=== PATIENT | male | born 1965 | race Caucasian/White ===

== ENCOUNTER 2019-06-05 09:04 | Outpatient (CLI) | payer OTHER, SELFPAY ==
--- NOTE | ~2019-06-05 | CT_ITS ---
EXAMINATION: CT chest wo con EXAM DATE: 06/05/2019 10:48 INDICATION: Solitary pulmonary nodule. TECHNIQUE: Spiral CT of the chest without contrast. Axial, coronal and sagittal images were reviewe d. Coronal maximum intensity pixel images of chest reviewed. The dose-length product (DLP) for this examination was 527.96 mGy-cm. The exposure was tailored according to patient size (auto mA exposur e control), and iterative reconstruction (ASIR) was used as additional dose reduction technique. Comp arison is made to prior examination from 12/05/2018. Correlation was made with head CT 08/31/2018. FINDINGS: Again there is 1.3 cm right apical nodule, stable. Recommend additional follow-up low-dose chest CT in one year. There is mild emphysema and hyperinflation. Additional 4 mm left upper lobe no dule, stable. There are no pleural or pericardial effusions. Tracheobronchial tree is patent. Th ere is no mediastinal, hilar or axillary lymphadenopathy. There is no pneumothorax. Heart normal in size. There is moderate left-sided coronary arterial calcification, arterial sclerosis. There a re cholecystectomy clips. There is thoracic spondylosis without osteoblastic or osteolytic lesions i dentified. IMPRESSION: 1. Stable apical nodules likely granulomas; 1 year follow-up low-dose chest CT recommended. 2. Mild emphysema and hyperinflation. Reviewed, dictated and finalized at location A. ESPONDENCE REVIEW CLERK
--- NOTE | 2019-06-08 11:33 | WPDPFTINT ---
PFT Interpretation PFT Interpretation: This PFT met all criteria for ATS standards and reproducibility FEV/FVC post bronchodilator 64% of predicted FEV1 106% or 2.46 liters FVC 130% There was somewhat significant improvement in FEV1 post bronchodilator by 10% and 230 ml TLC 171% or predicted RV 207% RV/TLC 46% DLCO 101% when adjusted for alveolar volume but not adjusted for hemoglobin Flow volume loops showed significant expiratory coving Impression: Mild airflow obstruction with good response to bronchodilators as well as hyperinflation and air trapping. This pattern may correlate with Asthma but concomitant COPD cannot be ruled out. Clinical correlation is advised.
== END 2019-06-05 09:05 | disposition home or self-care (01) ==
PROVIDERS: PCP Internal Medicine; Visit Provider Internal Medicine Critical Care Medicine
DX: J44.9 Chronic obstructive pulmonary disease, unspecified (principal); R91.1 Solitary pulmonary nodule; J31.0 Chronic rhinitis; R94.2 Abnormal results of pulmonary function studies; J43.9 Emphysema, unspecified
CPT/HCPCS: 36415; 71250; 82785; 86003; 94060; 94726; 94729

== ENCOUNTER 2019-10-16 07:22 | Outpatient (CLI) | payer OTHER, SELFPAY ==
--- NOTE | 2019-10-19 14:31 | SLEEP_ITS ---
Home sleep test. DATE OF STUDY: 10/16/2019 REASON FOR THE STUDY: Non-refreshing sleep, difficulty staying asleep at night. HISTORY: This patient is a 54 year-old male 5 feet 8 inches tall, weighing 278 pounds for a body mass index of 42.2. He has difficulties staying asleep at night. He constantly falls asleep during the day, constantly involuntarily, but not while driving. He frequently snores and it is loud enough that others complain about it. He rarely awakens from sleep feeling short of breath. He rarely has heartburn or belching at night. He frequently has trouble sleeping with a cold. He rarely gasps for breath at night and rarely has breathing problems witnessed by others. He rarely sweats excessively at night. He rarely notices his heart pounding or beating irregularly at night. He does not fall asleep while driving or with physical effort. He does not have loss of muscle tone with strong emotion. He rarely has daytime difficulty due to sleepiness. He denies feeling paralyzed on waking or falling asleep. He does not have vivid dreamlike scenes upon awakening or falling asleep. He is not afraid to go to sleep. He rarely has nightmares, rarely remembers his dreams, rarely has racing thoughts or feelings of sadness or depression. He rarely has anxiety. He occasionally has muscular tension, rarely notices parts of his body jerking. He occasionally kicks at night. He occasionally has crawly achy feelings in his legs. He frequently has leg pain at night. He never has morning jaw pain and rarely grinds his teeth. He is constantly bothered by pain during the day, frequently is awakened by pain at night, rarely awakens feeling stiff in the morning with sore or achy muscles. He constantly wakes up with pain in the neck and spine. Normal bedtime is 10:00 p.m., falling asleep in 2 or 3 minutes, waking 2 or 3 times at night and will stay awake on average 2 hours. He will use the bathroom. He wakes for the day at 03:00 a.m. He does not indicate whether or not he takes naps. MEDICAL COMORBIDITIES: COPD, tobacco smoking, lung mass, diabetes, renal cyst, hypertension, claudication, neuropathy, secondary polycythemia, back pain. MEDICATIONS: 1. Lisinopril 40 mg b.i.d. 2. Triamterene/hydrochlorothiazide 37.5/25 one tablet q.a.m. 3. Omeprazole 20 mg a day. 4. Metformin 1000 mg b.i.d. 5. Albuterol sulfate inhaler 1 puff q.4 hours p.r.n. 6. Amlodipine 10 mg a day. 7. Empagliflozin 25 mg a day. 8. Fluticasone nasal spray 2 sprays daily. 9. Lispro insulin as instructed. 10. Mometasone/formoterol 200/5 mcg 2 puffs b.i.d. 11. Dulaglutide 1.5 mg subcu weekly. 12. Glargine 30 units subcu daily. 13. Atorvastatin 40 mg a day. 14. Ibuprofen 600 mg q.6 hours p.r.n. 15. Alprazolam 0.25 mg daily. HABITS: He smokes tobacco daily 1.5 packs x43 years, 64 pack years. No alcohol. DESCRIPTION OF THE STUDY: On the [place] Sleepiness Scale, his score is 14, elevated. This was conducted as an unattended type 3 home sleep test using the 4 channel monitoring with respiratory effort channel, snoring channel, oxygen desaturation channel, and heart rate channel. This study was scored using CMS guidelines. Duration of the study was 5 hours 41 minutes. The apnea-hypopnea index was 14.3, which is elevated. Oxygen desaturation index 9.3. Lowest desaturation 88%. He had 46 apneas; 50% of these apneas or 23 apneas were obstructive, and 50% of the apneas, 23, were centrals. He had 35 hypopneas, 338 snoring episodes with 75 desaturations and spent 2 minutes below 88% saturation. Heart rate ranged from 55 to 91. IMPRESSION: This study provides evidence of at least mild obstructive sleep apnea syndrome G47.33 with some element of central apneas as well. He desa
== END 2019-10-16 07:23 | disposition home or self-care (01) ==
LOC: ANHCSM 07:23
PROVIDERS: PCP Internal Medicine; Visit Provider Internal Medicine Critical Care Medicine
DX: G47.33 Obstructive sleep apnea (adult) (pediatric) (principal)
CPT/HCPCS: 95806

== ENCOUNTER 2020-05-14 10:01 | Outpatient (CLI) | payer OTHER, SELFPAY ==
--- NOTE | 2020-05-14 11:00 | NEURO_ITS ---
Impression: # Complains of right hand numbness. # Right Carpal Tunnel Syndrome. # Needle/EMG exam not requested. # Higher involvement needs to be ruled out. Nerve Conduction Studies Anti Sensory Summary Table Stim Site NR Peak (ms) P-T Amp (?V) Site1 Site2 Delta-P (ms) Dist (cm) Bret (m/s) Right Median Anti Sensory (2-3nd Digit) NO RESPONSE Wrist NR Wrist 2-3nd Digit 14.0 Wrist NR Wrist 2-3nd Digit 14.0 Right Radial Anti Sensory (Base 1st Digit) Wrist 2.5 34.8 Wrist Base 1st Digit 2.5 0.0 Right Ulnar Anti Sensory (5th Digit) Wrist 3.3 36.6 Wrist 5th Digit 3.3 14.0 42 Motor Summary Table Stim Site NR Onset (ms) O-P Amp (mV) Site1 Site2 Delta-0 (ms) Dist (cm) Bret (m/s) Right Median Motor (Abd Poll Brev) Wrist 4.2 0.3 Elbow Wrist 5.8 28.0 48 Elbow 10.0 1.4 Right Ulnar Motor (Abd Dig Minimi) Wrist 2.8 7.1 A Elbow Wrist 5.9 30.0 51 A Elbow 8.7 5.5 F Wave Studies NR F-Lat (ms) L-R F-Lat (ms) Right Median (Mrkrs) (Abd Poll Brev) 30.82 Right Ulnar (Mrkrs) (Abd Dig Min) 30.88 MTDD
== END 2020-05-14 10:02 | disposition home or self-care (01) ==
LOC: ANHNEURO 10:02
PROVIDERS: PCP Internal Medicine; Visit Provider Plastic Surgery
DX: R20.2 Paresthesia of skin (principal); G56.01 Carpal tunnel syndrome, right upper limb
CPT/HCPCS: 95909

== ENCOUNTER 2020-05-26 09:08 | Outpatient (CLI) | payer OTHER, SELFPAY ==
--- NOTE | ~2020-05-26 | CT_ITS ---
EXAMINATION:CT lung screening DATE: 05/26/2020 09:49 INDICATION: Personal history of nicotine dependence. Current smoker with 86 pack year history. TECHNIQUE: Computed tomography (CT) of the chest was performed without intravenous contrast. Automate d exposure control and iterative reconstruction technique were employed. The dose-length product (DLP ) was 483.82 mGy-cm. COMPARISON: Chest CT 06/05/2019, 08/21/2018 FINDINGS: There is mild emphysema. There is a 13 mm nodule at right lung apex without change from 08/03 . There is a 4 mm nodule in left upper lobe without change. No pleural effusion. The heart size i s normal. There are coronary artery calcifications. No pericardial effusion. The central pulmonary ar teries are enlarged, consistent with pulmonary arterial hypertension. There are changes of cholecyste ctomy. There is mild thoracic spondylosis. IMPRESSION: 1. Lung-RADS category 2: Benign appearance or behavior. Continue annual screening with noncontrast lo w-dose chest CT in 12 months. Reviewed, dictated and finalized at location A. SERVICE TECHNICIAN IMPRESSION: 1. Lung-RADS category 2: Benign appearance or behavior. Continue annual screeni ng with noncontrast low-dose chest CT in 12 months.
== END 2020-05-26 09:09 | disposition home or self-care (01) ==
PROVIDERS: PCP Internal Medicine; Visit Provider Internal Medicine Critical Care Medicine
DX: Z12.2 Encounter for screening for malignant neoplasm of respiratory organs (principal); Z87.891 Personal history of nicotine dependence
CPT/HCPCS: 71271

== ENCOUNTER → 2020-06-02 02:20 | Outpatient (CLI) | payer OTHER, SELFPAY ==
[2020-06-02 18:21] LABS: SARS-CoV-2 RNA PCR Negative
== END ==
PROVIDERS: PCP Internal Medicine; Visit Provider Plastic Surgery
DX: Z01.812 Encounter for preprocedural laboratory examination (principal); Z20.822 Contact with and (suspected) exposure to COVID-19
CPT/HCPCS: C9803; U0003; U0005

== ENCOUNTER 2020-06-05 01:35 | Day surgery (SDC) | payer OTHER, SELFPAY ==
[2020-05-27 15:32] VITALS: BMI 39.6
--- NOTE | 2020-06-05 07:12 | WPDHPUPDATE1 ---
History and Physical Update Update Date/Time: 06/05/20 07:12 History and Physical has been reviewed, including an updated exam of the patient. There are NO changes in the patient's condition. Risks, benefits, and alternatives have been discussed and questions answered. Patient agrees to proceed with procedure.
[2020-06-05 11:09] VITALS: BP 150/77; PULSE 74; RESP 18; TEMP 36.6; O2SAT 99; BMI 40.8
--- NOTE | 2020-06-05 12:31 | PM.OP ---
Procedure Note - Brief Procedure Note - Brief Date of procedure: 06/05/20 Pre-op diagnosis: Carpal Tunnel Syndrome Post-op diagnosis: same Procedure performed: R OCTR Anesthesia: local Surgeon: Nasim Lane MD Estimated blood loss (mL): 1 Drains: No Packing: No Pathology: none sent Complications: No immediate complications Condition: stable Disposition: same day
[2020-06-05 12:32] VITALS: BP 173/80; PULSE 78; RESP 20; O2SAT 97
[2020-06-05 12:45] VITALS: BP 170/79; PULSE 76; RESP 20; O2SAT 97
[2020-06-05] MEDS: LIDO 1%/EPINEPHRINE 1:100,000 50 ML VIAL INFILTRATE (12:48)
[2020-06-05 12:53] VITALS: BP 149/64; PULSE 73; RESP 20; O2SAT 98
--- NOTE | 2020-06-05 13:13 | PM.PROC ---
Procedure Note - Detailed Date of procedure: 06/05/20 Pre-op diagnosis: Carpal Tunnel Syndrome Post-op diagnosis: same Procedure performed: Right open carpal tunnel release Description of procedure: The right hand was marked in the holding area. The patient was taken to the operating room and placed supine on the operating table. The time-out was held and confirmed. The extremity was prepped and draped in usual fashion. The site was remarked and locally infiltrated with 1% lidocaine with epinephrine. No tourniquet was used. The incision was made in the palm and carried bluntly through the subcutaneous tissue to the palmar fascia this and the carpal ligament were incised with a 15. Blade. Under 3 point retraction the ligament was divided distally proximally to completely release it. No unusual anatomy was noted. The skin was closed with interrupted 4-0 nylon suture a bulky bandage with Awais wrap was applied and the patient was discharged from the operating room stable condition. His prescription for hydrocodone 5/325 10. Surgeon: Nasim Lane MD
== END 2020-06-05 13:18 | disposition home or self-care (01) ==
PROVIDERS: PCP Internal Medicine; Visit Provider Plastic Surgery
PROC: (CPT 64721; principal; 2020-06-05 11:45)
DX: G56.01 Carpal tunnel syndrome, right upper limb (principal)
CPT/HCPCS: 64721; C9803; U0003; U0005

== ENCOUNTER 2020-07-07 14:13 | Outpatient (CLI) | payer OTHER, SELFPAY ==
--- NOTE | ~2020-07-07 | US_ITS ---
EXAMINATION: US carotid duplex BI DATE: 07/07/2020 14:58 INDICATION: Left carotid artery stenosis or occlusion. TECHNIQUE: Grayscale, color Doppler, and pulsed Doppler images of the cervical carotid arteries were obtained. The degree of vessel stenosis is placed in one of the following categories: normal, <50%, 5 0-69%, >=70% but less than near-occlusion, near-occlusion, or total occlusion. Note that percent sten osis relative to normal distal artery lumen diameter is indirectly measured from velocity measurement s as described by Santy, et al. Radiology 2003; 229:340-346. COMPARISON: None. FINDINGS: RIGHT: The right common carotid artery (CCA) peak systolic velocity (PSV) is 86 cm/s. The right internal car otid artery (ICA) PSV is 57 cm/s. The right ICA end-diastolic velocity (EDV) is 18 cm/s. The right IC A/CCA PSV ratio is 0.7. Grayscale and color Doppler images yield an estimate of <50% diameter reducti on from plaque in the ICA. The external carotid artery (ECA) PSV is 78 cm/s. There is antegrade flow in the right vertebral artery. LEFT: The left CCA PSV is 77 cm/s. The left ICA PSV is 70 cm/s. The left ICA EDV is 22 cm/s. The left ICA/C CA PSV ratio is 0.9. Grayscale and color Doppler images yield an estimate of <50% diameter reduction from plaque in the ICA. The ECA PSV is 97 cm/s. There is antegrade flow in the left vertebral artery. IMPRESSION: 1. <50% stenosis in the right internal carotid artery. 2. <50% stenosis in the left internal carotid artery. Reviewed, dictated and finalized at location B.
== END 2020-07-07 14:14 | disposition home or self-care (01) ==
PROVIDERS: PCP Internal Medicine; Visit Provider Internal Medicine
DX: I65.23 Occlusion and stenosis of bilateral carotid arteries (principal)
CPT/HCPCS: 93880

== ENCOUNTER 2020-07-08 07:32 | Outpatient (CLI) | payer OTHER, SELFPAY ==
--- NOTE | 2020-07-08 07:55 | ECHO_ITS ---
Patient Info Name: Sean Cueto Age: 54 years : 1965 Gender: Male Ht: 68 in Wt: 270 lbs BSA: 2.48 m2 HR: 74 bpm BP: 160 / 80 mmHg Technical Quality: Fair Exam Date: 07/08/2020 8:09 AM Exam Location: [facility] Patient Status: Outpatient Admit Date: 07/08/2020 Staff Ordering Physician: Julio Puentes MD Presidential Support Specialist: Joann Chin RDCS Attending Provider: Julio Puentes MD Exam Type: CA echo doppler color flow Study Info Indications R01.1 - Cardiac murmur, unspecified Complete two-dimensional, color flow and Doppler transthoracic echocardiogram is performed. Summary 1. Complete two-dimensional, color flow and Doppler transthoracic echocardiogram is performed. 2. Left ventricular chamber dimension is normal. 3. Left ventricular systolic function is normal, estimated at 60-65%. 4. There is mildly increased left ventricular wall thickness. 5. The left ventricular diastolic function is grade I diastolic dysfunction. 6. E/e' 9 is minimally elevated. 7. Left atrial chamber dimension is mildly enlarged. 8. Moderate lipomatous hypertrophy of the atrial septum. 9. There is severe aortic valve sclerosis. 10. There is mild to moderate aortic valve stenosis with a peak velocity of 251 cm/s, mean gradient of 13 mmHg, and aortic valve area of 1.6 cm2. 11. There is trace aortic valve regurgitation. 12. No pulmonary hypertension, estimated pulmonary arterial systolic pressure is 21 mmHg. Left Ventricle E/e' 9 is minimally elevated. Left ventricular chamber dimension is normal. Left ventricular systolic function is normal, estimated at 60-65%. There is mildly increased left ventricular wall thickness. The left ventricular diastolic function is grade I diastolic dysfunction. Right Ventricle Right ventricular chamber dimension is normal. Right ventricular systolic function is normal. Left Atria Left atrial chamber dimension is mildly enlarged. Right Atria Right atrial chamber dimension is normal. Atrial Septum Moderate lipomatous hypertrophy of the atrial septum. Aortic Valve The aortic valve is trileaflet. There is severe aortic valve sclerosis. There is mild to moderate aortic valve stenosis with a peak velocity of 251 cm/s, mean gradient of 13 mmHg, and aortic valve area of 1.6 cm2. There is trace aortic valve regurgitation. Pulmonic Valve There is no pulmonic regurgitation. Mitral Valve There is no mitral valve stenosis. There is no mitral valve regurgitation. Tricuspid Valve There is no tricuspid valve regurgitation. No pulmonary hypertension, estimated pulmonary arterial systolic pressure is 21 mmHg. Pericardium/Pleural There is no pericardial effusion. Inferior Vena Cava Normal inferior vena cava with >50% collapse upon inspiration consistent with normal right atrial pressure, 5 mmHg. Aorta The aortic root size at the sinus of Valsalva is normal. Left Ventricular Outflow Tract Name Value Normal LVOT 2D LVOT Diameter 2.0 cm LVOT Doppler LVOT Peak Gradient 4 mmHg LVOT Mean Gradient 2 mmHg LVOT VTI
== END 2020-07-08 07:33 | disposition home or self-care (01) ==
PROVIDERS: PCP Internal Medicine; Visit Provider Internal Medicine
DX: R01.1 Cardiac murmur, unspecified (principal)
CPT/HCPCS: 93306

== ENCOUNTER 2020-12-01 01:40 | Day surgery (SDC) | payer OTHER, SELFPAY ==
[2020-10-08 13:52] VITALS: BMI 42.5
--- NOTE | 2020-10-31 14:44 | PC.NURSE ---
PAT call completed earlier this month. Patient states no changes in health history or medications. Patient aware of updated times and no questions at this time.
[2020-11-19 13:32] VITALS: BMI 42.5
--- NOTE | 2020-11-28 15:49 | WPDANESEPPF ---
Anes - Initial Pre Proc Eval Procedure: Operation Date: 12/01/20 08:00 Proposed Procedures p Screening Colonoscopy - Tyrone Anderson MD Date/Time: 11/28/20 15:49 Surgeon: Tyrone Anderson MD Pre Op Diagnosis: neoplasm screening Patient Data Age: 55 Gender: M Height: 1.73 m Weight: 126.8 kg Allergies Allergy/AdvReac Type Severity Reaction Status Date / Time erythromycin base Allergy Unknown Abdominal Verified 12/01/20 07:01 Pain Penicillins Allergy Unknown Eruption Verified 12/01/20 07:01 tetracycline Allergy Unknown Abdominal Verified 12/01/20 07:01 pain Home Medications Medication Instructions Recorded Confirmed Type insulin syringe-needle U-100 1 mL #1 each 03/26/19 11/19/20 History 29 gauge x 1/2 pen needle, diabetic 33 gauge x #200 each 10/17/19 11/19/20 Rx 1/4 empagliflozin 25 mg tablet 25 mg PO DAILY #90 tablet 01/15/20 11/19/20 Rx insulin regular human 100 unit/mL 14 unit SUB-Q TIDWMEAL ml 03/18/20 11/19/20 History (3 mL) subcutaneous pen aspirin 81 mg PO DAILY 05/27/20 11/19/20 History atorvastatin 40 mg PO HS 05/27/20 11/19/20 History cholecalciferol (vitamin D3) 5,000 unit PO DAILY 05/27/20 11/19/20 History [Vitamin D3] cyanocobalamin (vitamin B-12) 1,000 mcg PO DAILY 05/27/20 11/19/20 History [Vitamin B-12] blood sugar diagnostic See Rx Instructions .ROUTE 06/18/20 11/19/20 Rx .COMPLEX #200 strip budesonide-formoterol HFA 160 2 puff INHALATION Q12H #10.2 g 07/01/20 11/19/20 Rx mcg-4.5 mcg/actuation aerosol inhaler amlodipine 10 mg tablet 10 mg PO DAILY #90 tablet 07/22/20 11/19/20 Rx lisinopril 40 mg tablet 40 mg PO DAILY #90 tablet 07/22/20 11/19/20 Rx metoprolol succinate 100 mg 100 mg PO DAILY #90 tablet 07/22/20 11/19/20 Rx tablet,extended release 24 hr triamterene 37.5 1 tablet PO QAM #90 tablet 08/08/20 11/19/20 Rx mg-hydrochlorothiazide 25 mg tablet omeprazole 20 mg capsule,delayed 20 mg PO DAILY #90 cap 08/22/20 11/19/20 Rx release pen needle, diabetic 29 gauge x See Rx Instructions .ROUTE 09/29/20 11/19/20 Rx 1/2 .COMPLEX #300 syr dulaglutide 3 mg/0.5 mL 3 mg SUBCUT WEEKLY #1 syr 09/30/20 11/19/20 Rx subcutaneous pen injector fenofibric acid (choline) 135 mg 135 mg PO HS #90 cap 10/23/20 11/19/20 Rx capsule,delayed release metformin 1,000 mg tablet 1,000 mg PO BID #180 tablet 11/18/20 11/19/20 Rx insulin glargine U-300 conc 300 35 unit SUBCUT DAILY #3 syr 11/28/20 Rx unit/mL (1.5 mL) subcutaneous pen Patient hx anesthesia problems: none Family hx anesthesia problems: none PMFSH Past Medical History Medical History (Updated 11/28/20 @ 15:50 by Brennen Levi DO) Aortic stenosis Carotid stenosis Chronic obstructive pulmonary disease Diabetes Emphysema lung Essential (primary) hypertension Lung mass Lung nodule WHITNEY (obstructive sleep apnea) Renal cyst Surgical History Surgical History H/O foot surgery History of placement of ear tubes No significant past surgical history (~05/2018) lap cholecystectomy left carpal tunnel right carpal tunnel R ear reconstructive surgery Family History Family History Father Diabetes mellitus Family history of coronary artery disease Family history of cardiovascular disease Mother Family history of chronic obstructive pulmonary disease Social History Social History (Updated 09/30/20 @ 08:23 by Jenae Cuellar MA) Smoking packs per day: 0.5 Smoking cigarettes per day: 10.0 Years smoked: 40 Smoking pack-years: 20.00 Smoking status: Current every day smoker Tobacco type: cigarettes Second hand tobacco smoke exposure: Yes Alcohol intake: never Substance use type: does not use Living arrangements: with family Spiritual care concerns: No Anes - Eval Final PreProcedure Day of Procedure
[2020-12-01 07:01] VITALS: BP 167/75; PULSE 75; RESP 16; TEMP 35.7; O2SAT 99; BMI 41.9
[2020-12-01] MEDS: LACTATED RINGERS 1,000 ML 150 ML IV CONT (07:16)
[2020-12-01 07:22] LABS: Glucose Point of Care 107 mg/dl (65-105)
--- NOTE | 2020-12-01 08:01 | PM.HPGS ---
History of Present Illness History of Present Illness Consent: Risks, benefits, and alternatives have been discussed and questions answered. Patient agrees to proceed with procedure. Chief complaint: neoplasm screening Narrative: Sean Cueto Jr. is a 55 year old male with last colonoscopy about 12 years ago. Review of Systems Constitutional: Constitutional: Denies headache(s) and Denies weakness Eyes: Eyes: Denies blurry vision ENT: Reports Normal hearing present, Denies headache(s) and Denies neck pain Cardiovascular: Cardiovascular: Denies chest pain and Denies dyspnea Respiratory: Respiratory: Denies dyspnea Gastrointestinal: Gastrointestinal: Reports no additional gastrointestinal complaints Genitourinary: Genitourinary: Denies dysuria Musculoskeletal: Musculoskeletal: Denies neck pain Integumentary/Breasts: Skin/Breast: Denies dry skin Neurologic: Reports Normal hearing present, Denies headache(s) and Denies weakness Psychiatric: Psychiatric: Denies anxiety Endocrine: Endocrine: Denies change in body appearance Hematologic/Lymphatic: Hematologic/Lymphatic: Denies easy bleeding Allergic/Immunologic: Allergic/Immunologic: Denies urticaria PMFSH Past Medical History Medical History (Updated 12/01/20 @ 08:26 by Tyrone Anderson MD) Aortic stenosis Carotid stenosis Chronic obstructive pulmonary disease Colon cancer screening Diabetes Emphysema lung Essential (primary) hypertension Lung mass Lung nodule WHITNEY (obstructive sleep apnea) Renal cyst Surgical History Surgical History H/O foot surgery History of placement of ear tubes No significant past surgical history (~05/2018) lap cholecystectomy left carpal tunnel right carpal tunnel R ear reconstructive surgery Family History Family History Father Diabetes mellitus Family history of coronary artery disease Family history of cardiovascular disease Mother Family history of chronic obstructive pulmonary disease Social History Social History (Updated 09/30/20 @ 08:23 by Jenae Cuellar MA) Smoking packs per day: 0.5 Smoking cigarettes per day: 10.0 Years smoked: 40 Smoking pack-years: 20.00 Smoking status: Current every day smoker Tobacco type: cigarettes Second hand tobacco smoke exposure: Yes Alcohol intake: never Substance use type: does not use Living arrangements: with family Spiritual care concerns: No Meds Home Medications and Allergies Home Medications Medication Instructions Recorded Confirmed Type insulin syringe-needle U-100 1 mL #1 each 03/26/19 12/01/20 History 29 gauge x 1/2 pen needle, diabetic 33 gauge x #200 each 10/17/19 12/01/20 Rx 1/4 empagliflozin 25 mg tablet 25 mg PO DAILY #90 tablet 01/15/20 12/01/20 Rx insulin regular human 100 unit/mL 14 unit SUB-Q TIDWMEAL ml 03/18/20 12/01/20 History (3 mL) subcutaneous pen aspirin 81 mg PO DAILY 05/27/20 12/01/20 History atorvastatin 40 mg PO HS 05/27/20 12/01/20 History cholecalciferol (vitamin D3) 5,000 unit PO DAILY 05/27/20 12/01/20 History [Vitamin D3] cyanocobalamin (vitamin B-12) 1,000 mcg PO DAILY 05/27/20 12/01/20 History [Vitamin B-12] blood sugar diagnostic See Rx Instructions .ROUTE 06/18/20 12/01/20 Rx .COMPLEX #200 strip budesonide-formoterol HFA 160 2 puff INHALATION Q12H #10.2 g 07/01/20 12/01/20 Rx mcg-4.5 mcg/actuation aerosol inhaler amlodipine 10 mg tablet 10 mg PO DAILY #90 tablet 07/22/20 12/01/20 Rx lisinopril 40 mg tablet 40 mg PO DAILY #90 tablet 07/22/20 12/01/20 Rx metoprolol succinate 100 mg 100 mg PO DAILY #90 tablet 07/22/20 12/01/20 Rx tablet,extended release 24 hr triamterene 37.5 1 tablet PO QAM #90 tablet 08/08/20 12/01/20 Rx mg-hydrochlorothiazide 25 mg tablet omeprazole 20 mg capsule,delayed 20 mg PO DAILY #90 cap 08/22/20 12/01/20 Rx
[2020-12-01 08:29] VITALS: BP 133/88; PULSE 72; RESP 14; O2SAT 98
[2020-12-01 08:38] LABS: Glucose Point of Care 102 mg/dl (65-105)
[2020-12-01 08:39] VITALS: BP 142/77; PULSE 68; RESP 14; O2SAT 98
[2020-12-01 08:49] VITALS: BP 148/82; PULSE 68; RESP 12; O2SAT 99
== END 2020-12-01 09:09 | disposition home or self-care (01) ==
PROVIDERS: PCP Internal Medicine; Visit Provider Internal Medicine Gastroenterology
PROC: 0DJD8ZZ Inspection of Lower Intestinal Tract, Via Natural or Artificial Opening Endoscopic (ICD-10-PCS; CPT 45378; principal; 2020-12-01 08:00)
DX: Z12.11 Encounter for screening for malignant neoplasm of colon (principal); K57.30 Diverticulosis of large intestine without perforation or abscess without bleeding; D12.2 Benign neoplasm of ascending colon; D12.3 Benign neoplasm of transverse colon; K62.1 Rectal polyp; I65.29 Occlusion and stenosis of unspecified carotid artery; G47.33 Obstructive sleep apnea (adult) (pediatric); N28.1 Cyst of kidney, acquired; E11.9 Type 2 diabetes mellitus without complications; J44.9 Chronic obstructive pulmonary disease, unspecified; I10 Essential (primary) hypertension; R91.8 Other nonspecific abnormal finding of lung field; I35.0 Nonrheumatic aortic (valve) stenosis; F17.210 Nicotine dependence, cigarettes, uncomplicated; Z79.82 Long term (current) use of aspirin; Z79.4 Long term (current) use of insulin; E66.01 Morbid (severe) obesity due to excess calories; Z68.41 Body mass index [BMI] 40.0-44.9, adult
CPT/HCPCS: 45385; 82948; 88305; J2704; J7120

== ENCOUNTER 2021-06-30 06:35 | Outpatient (CLI) | payer OTHER, SELFPAY ==
--- NOTE | ~2021-06-30 | CT_ITS ---
EXAMINATION: CT lung screening EXAM DATE: 06/30/2021 06:59 INDICATION: Personal history of nicotine dependence. Current smoker. TECHNIQUE: Spiral CT of the chest without contrast. Axial, coronal and sagittal images of the chest were reviewed. Coronal maximum intensity pixel images of chest reviewed. The dose-length product ( DLP) for this examination was 415.31 mGy-cm. The exposure was tailored according to patient size (au to mA exposure control), and iterative reconstruction (ASIR) was used as additional dose reduction [place]. Comparison is made to prior examination from 05/26/2020, 05/26/2020. FINDINGS: There is right apical nodule measuring 12 mm, has demonstrated long-term stability since 2 019. There has been interval development of multiple bilateral groundglass nodular densities in the l ungs bilaterally, a nonspecific pneumonitis. There are no pleural or pericardial effusions. Tracheo bronchial tree is patent. There is no mediastinal, hilar or axillary lymphadenopathy. There is no pneumothorax. Heart normal in size. There is moderate coronary arterial calcification, arterial sclerosis. There are cholecystectomy clips. There is thoracic spondylosis without osteoblastic or o steolytic lesions identified. IMPRESSION: Lung-RADS category 2, benign appearance or behavior (<1% chance of malignancy); recommend continued LDCT screening in 1 year. Reviewed, dictated and finalized at location B.
== END 2021-06-30 06:36 | disposition home or self-care (01) ==
LOC: ANHIMG 06:41
PROVIDERS: PCP Internal Medicine; Visit Provider Nurse Practitioner Family
DX: Z87.891 Personal history of nicotine dependence (principal)
CPT/HCPCS: 71271; 99195

== ENCOUNTER 2021-07-16 07:27 | Outpatient (CLI) | payer OTHER, SELFPAY ==
--- NOTE | 2021-07-16 07:44 | ECHO_ITS ---
Patient Info Name: Sean Cueto Age: 55 years : 1965 Gender: Male Ht: 68 in Wt: 250 lbs BSA: 2.38 m2 HR: 81 bpm BP: 180 / 92 mmHg Technical Quality: Fair Exam Date: 07/16/2021 8:26 AM Exam Location: [facility] Patient Status: Outpatient Admit Date: 07/16/2021 Staff Ordering Physician: Jus Davenport DO Journeyman Pipe Fitter: Joann Chin RDCS Attending Provider: Jus Davenport DO Referring Physician: Issac BRYAN; Exam Type: CA echo doppler color flow Study Info Indications I35.0 - Nonrheumatic aortic (valve) stenosis Complete two-dimensional, color flow and Doppler transthoracic echocardiogram is performed. Summary 1. Complete two-dimensional, color flow and Doppler transthoracic echocardiogram is performed. 2. Left ventricular chamber dimension is normal. 3. Left ventricular systolic function is normal, estimated at 60-65%. 4. There is mildly increased left ventricular wall thickness. 5. The left ventricular diastolic function is grade I diastolic dysfunction. 6. E/e' 11 is mildly elevated. 7. Left atrial chamber dimension is mildly enlarged. 8. There is severe aortic valve sclerosis. 9. There is mild aortic valve stenosis based on a peak velocity of 253 cm/s, mean gradient of 13 mmHg, and aortic valve area of 1.8 cm2. The valve appears to be moderate aortic stenosis by visual estimation. 10. There is mild aortic valve regurgitation. 11. There is trace tricuspid valve regurgitation. 12. No pulmonary hypertension, estimated pulmonary arterial systolic pressure is 21 mmHg. Left Ventricle E/e' 11 is mildly elevated. Left ventricular chamber dimension is normal. Left ventricular systolic function is normal, estimated at 60-65%. There is mildly increased left ventricular wall thickness. The left ventricular diastolic function is grade I diastolic dysfunction. Right Ventricle Right ventricular chamber dimension is normal. Right ventricular systolic function is normal. Left Atria Left atrial chamber dimension is mildly enlarged. Right Atria Right atrial chamber dimension is normal. Aortic Valve The aortic valve is probable trileaflet. There is severe aortic valve sclerosis. There is mild aortic valve stenosis based on a peak velocity of 253 cm/s, mean gradient of 13 mmHg, and aortic valve area of 1.8 cm2. The valve appears to be moderate aortic stenosis by visual estimation. There is mild aortic valve regurgitation. Pulmonic Valve There is no pulmonic regurgitation. Mitral Valve There is no mitral valve stenosis. There is no mitral valve regurgitation. Tricuspid Valve There is trace tricuspid valve regurgitation. No pulmonary hypertension, estimated pulmonary arterial systolic pressure is 21 mmHg. Pericardium/Pleural There is no pericardial effusion. Inferior Vena Cava Normal inferior vena cava with >50% collapse upon inspiration consistent with normal right atrial pressure, 5 mmHg. Aorta The aortic root size at the sinus of Valsalva is normal. Left Ventricular Outflow Tract Name Value Normal LVOT 2D LVOT Diameter 2.1 cm LVOT Doppler LVOT Peak Gradient 6 mmHg
== END 2021-07-16 07:28 | disposition home or self-care (01) ==
PROVIDERS: PCP Internal Medicine; Visit Provider Internal Medicine Cardiovascular Disease
DX: I34.0 Nonrheumatic mitral (valve) insufficiency (principal); I35.1 Nonrheumatic aortic (valve) insufficiency; I36.1 Nonrheumatic tricuspid (valve) insufficiency
CPT/HCPCS: 93306

== ENCOUNTER 2021-09-07 08:10 | Outpatient (CLI) | payer OTHER, SELFPAY ==
--- NOTE | ~2021-09-07 | CT_ITS ---
EXAMINATION: CT diagnostic chest wo con DATE: 09/07/2021 08:23 INDICATION: Pneumonia. Covid infection in June. Smoker. TECHNIQUE: Computed tomography (CT) of the chest was performed without intravenous contrast. Automate d exposure control and iterative reconstruction technique were employed. Exam dose: 741.08 mGy-cm to tony exam DLP. COMPARISON: 06/30/2021 CT lung screening 08/21/2018 LDCT lung cancer screening FINDINGS: There is residual but significant interval improvement of extensive bilateral groundglass o pacities throughout both lungs, most consistent with improving infectious or inflammatory process. Chronic stable right apical 12 mm mass, unchanged since 08/21/2018, consistent with benign process. Normal heart size. Prominent coronary artery calcification. There is aortic and great vessel calcific ation. No hilar or mediastinal mass lesion or lymphadenopathy. No pericardial or pleural effusion. Status post cholecystectomy. No suspicious osteolytic or osteoblastic lesions are noted. IMPRESSION: Interval improvement of extensive groundglass nodular densities throughout both lungs, c onsistent with improving inflammatory or infectious pulmonary process Stable 12 mm right apical node since 08/21/2018, consistent with benign process. Reviewed, dictated and finalized at Location [facility]. Reviewed, dictated and finalized at location A. IMPRESSION: Interval improvement of extensive groundglass nodular densities th roughout both lungs, consistent with improving inflammatory or infectious pulmo nary process Stable 12 mm right apical node since 08/21/2018, consistent with benign process.
== END 2021-09-07 08:11 | disposition home or self-care (01) ==
PROVIDERS: PCP Internal Medicine; Visit Provider Nurse Practitioner Family
DX: J18.9 Pneumonia, unspecified organism (principal); Z86.16 Personal history of COVID-19
CPT/HCPCS: 71250

== ENCOUNTER 2021-10-26 12:50 | Outpatient (RCR) | payer OTHER, SELFPAY ==
[2021-10-26 13:34] VITALS: BMI 37.0
--- NOTE | 2021-11-09 08:35 | PCWOUND ---
CWON NOTE patient called to cancel his appointment. States the wound is healed.
== END 2022-01-11 09:57 | disposition home or self-care (01) ==
LOC: ANHWOC 12:50
PROVIDERS: PCP Internal Medicine; Visit Provider Internal Medicine
DX: E11.622 Type 2 diabetes mellitus with other skin ulcer (principal); L98.499 Non-pressure chronic ulcer of skin of other sites with unspecified severity
CPT/HCPCS: 99212; G0463

== ENCOUNTER 2022-02-12 11:40 | Emergency (ER) | payer OTHER, SELFPAY ==
--- NOTE | ~2022-02-12 | XR_ITS ---
EXAMINATION: XR shoulder LT min 2V INDICATION: Left shoulder pain TECHNIQUE: Four views of the left shoulder are submitted. COMPARISON: None FINDINGS: Normal alignment. No fracture. Glenohumeral and acromioclavicular joint spaces are normal. Soft tissues are unremarkable. IMPRESSION: 1. No acute osseous abnormality. Reviewed, dictated and finalized at location B. L FENCE ERECTOR
[2022-02-12 11:51] VITALS: BP 163/72; PULSE 79; RESP 20; TEMP 36.9; O2SAT 99
--- NOTE | 2022-02-12 12:55 | ED.FALL ---
HPI - Fall General Chief Complaint: Fall Stated Complaint: fall, shoulder pain Time Seen by Provider: 02/12/22 12:37 Source: patient, EMS and RN notes reviewed Mode of arrival: ambulatory Limitations: no limitations History of Present Illness HPI Narrative: This is a 56 year old male who presents for evaluation of left shoulder pain. He states this morning he accidentally slipped getting out of the shower. He hit his shoulder on rail. He denies hitting his head or LOC . He reports history chronic back pain but he states his back is not hurting him today. He only has pain to left shoulder and it is worse with abduction of his left shoulder. He denies numbness or tingling. He has not taken any medication for pain. Related Data Home Medications Medication Instructions Recorded Confirmed insulin regular human 100 unit/mL 14 unit subcut TIDWMEAL 03/18/20 01/12/22 (3 mL) subcutaneous pen (Novolin R Flexpen) aspirin 81 mg tablet,delayed 81 mg PO DAILY 05/27/20 01/12/22 release cyanocobalamin (vitamin B-12) 1,000 mcg PO DAILY 05/27/20 01/12/22 1,000 mcg tablet (Vitamin B-12) lisinopril 40 mg tablet 40 mg PO BID 05/11/21 01/12/22 cholecalciferol (vitamin D3) 50 4,000 unit PO DAILY 01/12/22 01/12/22 mcg (2,000 unit) capsule (Vitamin D3) Allergies Allergy/AdvReac Type Severity Reaction Status Date / Time erythromycin base Allergy Unknown Abdominal Verified 02/12/22 11:53 Pain Penicillins Allergy Unknown Eruption Verified 02/12/22 11:53 tetracycline Allergy Unknown Abdominal Verified 02/12/22 11:53 pain Review of Systems Review of Systems: All systems reviewed & are unremarkable except as noted in HPI and below PMFSH Past Medical History Medical History Aortic stenosis Carotid stenosis Chronic obstructive pulmonary disease Colon cancer screening Diabetes Emphysema lung Essential (primary) hypertension Lung mass Lung nodule WHITNEY (obstructive sleep apnea) Renal cyst Surgical History Surgical History H/O foot surgery History of placement of ear tubes No significant past surgical history (~05/2018) lap cholecystectomy left carpal tunnel right carpal tunnel R ear reconstructive surgery Family History Family History Father Diabetes mellitus Family history of coronary artery disease Family history of cardiovascular disease Mother Family history of chronic obstructive pulmonary disease Social History Social History Smoking packs per day: 0.8 Smoking cigarettes per day: 16.0 Years smoked: 45 Smoking pack-years: 36.00 Smoking status: Current every day smoker Tobacco type: cigarettes Second hand tobacco smoke exposure: Yes Alcohol intake: never Substance use: never Substance use type: does not use Spiritual care concerns: No Exam Const: General: no acute distress and alert Nutritional Appearance: well nourished Orientation/consciousness: patient oriented x3 HENMT: Head: normal to inspection Face/Nose/Sinus: Normal external nose present Face and sinus: normal facial exam Eyes: EOM: EOMs intact bilaterally Neck: Neck: normal visual inspection Resp: Effort & Inspection: normal respiratory effort Skin: General skin exam: normal color Rashes: no rashes Wounds: no wounds Neuro: General: patient oriented x3, moves all extremities and CN's II-XI intact bilaterally Extrem: Other: FROM of left shoulder , there is pain with abduction, no bruising, no swelling, no deformity. Sensation in tact Psych: Mental Status: mental status grossly normal Course Reevaluation(s) Reevaluation #1: I Discussed with patient xray. he will follow up with PCP if pain does not improve in 1 week. He declines pain medication in ER . He is agree
== END 2022-02-12 13:34 | disposition home or self-care (01) ==
LOC: ANHED 13:14
PROVIDERS: Emergency Provider General Practice; PCP Family Medicine
DX: S43.402A Unspecified sprain of left shoulder joint, initial encounter (principal); E11.9 Type 2 diabetes mellitus without complications; I35.0 Nonrheumatic aortic (valve) stenosis; I65.29 Occlusion and stenosis of unspecified carotid artery; J43.9 Emphysema, unspecified; I10 Essential (primary) hypertension; G47.33 Obstructive sleep apnea (adult) (pediatric); F17.210 Nicotine dependence, cigarettes, uncomplicated; Z79.82 Long term (current) use of aspirin; Z79.4 Long term (current) use of insulin; Z79.84 Long term (current) use of oral hypoglycemic drugs; W18.2XXA Fall in (into) shower or empty bathtub, initial encounter
CPT/HCPCS: 73030; 99283; A4565

== ENCOUNTER 2022-08-02 16:50 | Emergency (ER) | payer OTHER, SELFPAY ==
[2022-08-02 17:22] VITALS: BP 180/68; PULSE 79; RESP 14; TEMP 36.4; O2SAT 96
--- NOTE | 2022-08-02 18:09 | PC.NURSE ---
Pt came up to registration desk and reports he is going to come back in the morning. Pt is A/O x 4, no distress, skin pwd.
== END 2022-08-02 18:09 | disposition left against medical advice (07) ==
PROVIDERS: PCP Family Medicine
DX: M54.50 Low back pain, unspecified (principal)
CPT/HCPCS: 99199

== ENCOUNTER 2022-08-03 04:41 | Emergency (ER) | payer OTHER, SELFPAY ==
[2022-08-03 04:48] VITALS: BP 181/79; PULSE 83; RESP 18; TEMP 35.7; O2SAT 99
--- NOTE | 2022-08-03 05:32 | ED.GENADULT ---
HPI - General Adult General Chief complaint: Back Pain/Injury Stated complaint: lower back pain Time Seen by Provider: 08/03/22 05:11 History of Present Illness HPI narrative: This is a 56-year-old male with history of chronic back pain presenting to ED with back pain. Patient spent the entire day fishing. After that he had sharp pain in the right lower back that is nonradiating, worse with movement. He has taken Motrin Tylenol with no relief. He called his primary care physician to get some medication in the the primary care physician told him to come to the ER for evaluation. He denies trauma, fevers, history of cancer, numbness tingling weakness lower extremities, urinary retention or bowel incontinence. Related Data Home Medications Medication Instructions Recorded Confirmed aspirin 81 mg tablet,delayed 81 mg PO DAILY 05/27/20 06/28/22 release cholecalciferol (vitamin D3) 125 5,000 unit PO DAILY 05/05/22 06/28/22 mcg (5,000 unit) capsule cyanocobalamin (vitamin B-12) 1,000 mcg PO DAILY 05/05/22 06/28/22 1,000 mcg tablet (Vitamin B-12) lisinopril 40 mg tablet 40 mg PO . q.a.m. 05/05/22 06/28/22 Allergies Allergy/AdvReac Type Severity Reaction Status Date / Time erythromycin base Allergy Unknown Abdominal Verified 06/28/22 08:53 Pain Penicillins Allergy Unknown Eruption Verified 06/28/22 08:53 tetracycline Allergy Unknown Abdominal Verified 06/28/22 08:53 pain PMFSH Past Medical History Medical History Aortic stenosis BMI 37.0-37.9, adult Cardiac murmur Carotid stenosis Chronic obstructive pulmonary disease Class 3 severe obesity due to excess calories with serious comorbidity and body mass index (BMI) greater than or equal to 70 in adult Colon cancer screening COVID-19 vaccine series completed Diabetes Dyslipidemia Dyslipidemia associated with type 2 diabetes mellitus Emphysema lung Essential (primary) hypertension Gastro-esophageal reflux disease without esophagitis Lumbar degenerative disc disease Lung mass Lung nodule Male erectile dysfunction, unspecified Mixed hyperlipidemia Nocturnal hypoxemia due to emphysema Obesity WHITNEY (obstructive sleep apnea) Renal cyst Seasonal allergic rhinitis Spinal stenosis, unspecified region other than cervical Tobacco abuse counseling Type 2 diabetes mellitus with diabetic peripheral angiopathy and gangrene, with long-term current use of insulin Vaccine counseling Vitamin B12 deficiency Surgical History Surgical History H/O foot surgery History of placement of ear tubes No significant past surgical history (~05/2018) lap cholecystectomy left carpal tunnel right carpal tunnel R ear reconstructive surgery Family History Family History Father Diabetes mellitus Family history of coronary artery disease Family history of cardiovascular disease Mother Family history of chronic obstructive pulmonary disease Social History Social History Smoking packs per day: 1 Smoking cigarettes per day: 20.0 Years smoked: 45 Smoking pack-years: 45.00 Smoking status: Current every day smoker Tobacco type: cigarettes Second hand tobacco smoke exposure: Yes Alcohol intake: never Substance use: never Substance use type: does not use Lack of Transportation: No Lack of Food: Never True Current Housing: I Have Housing Concerned About Future Housing: No Difficulty Paying Gas/Electric Bills: No Difficulty Paying for Meds: YES Currently Unemployed: No Education: High School Diploma/GED Difficulty w/ Childcare or Family Care: No Living arrangements: with family Spiritual care concerns: No Exam Narrative: APPEARANCE: No apparent distress. Head: atraumatic. EYES: EOMI, NOSE: Atraumatic NEC
[2022-08-03] MEDS: ACETAMINOPHEN 500 MG TABLET 1000 MG PO (05:38)
[2022-08-03] MEDS: methocarbamoL 750 MG TABLET 1500 MG PO (05:38)
[2022-08-03] MEDS: LIDOCAINE 5% PATCH 1 PATCH TRANSDERM (05:38)
[2022-08-03 06:20] VITALS: BP 163/78; PULSE 68; RESP 18; O2SAT 98
== END 2022-08-03 06:22 | disposition home or self-care (01) ==
PROVIDERS: Emergency Provider Emergency Medicine; PCP Family Medicine
DX: M54.50 Low back pain, unspecified (principal); I35.0 Nonrheumatic aortic (valve) stenosis; I65.29 Occlusion and stenosis of unspecified carotid artery; J44.9 Chronic obstructive pulmonary disease, unspecified; E11.69 Type 2 diabetes mellitus with other specified complication; E78.2 Mixed hyperlipidemia; E11.52 Type 2 diabetes mellitus with diabetic peripheral angiopathy with gangrene; I96 Gangrene, not elsewhere classified; E66.9 Obesity, unspecified; Z68.38 Body mass index [BMI] 38.0-38.9, adult; G47.33 Obstructive sleep apnea (adult) (pediatric); F17.210 Nicotine dependence, cigarettes, uncomplicated; Z79.82 Long term (current) use of aspirin; Z79.4 Long term (current) use of insulin; Z79.84 Long term (current) use of oral hypoglycemic drugs
CPT/HCPCS: 99283; A9270

== ENCOUNTER → 2022-08-17 09:05 | Outpatient (CLI) | payer OTHER, SELFPAY ==
--- NOTE | ~2022-08-17 | XR_ITS ---
XR lumbar spine min 4V 08/17/2022 09:25 Indication: Degenerative disc disease. Procedure: 5 views lumbar spine Comparison: No prior studies for comparison. Findings: There is disc narrowing at all lumbar levels most advanced at L4-5 and L5-S1. There is grad e 1 spondylolisthesis at L5-S1. There is advanced facet hypertrophy at L5-S1. No acute fracture or tr aumatic malalignment. Sacral foramen are symmetric. There are cholecystectomy clips. Pedicles intact. There are marginal osteophytes at L2-3 and L4-5. There is atherosclerosis of the aorta. Impression: 1: Severe lumbar spondylosis with red 1 degenerative spondylolisthesis at L5-S1. Reviewed, dictated and finalized at location L. Impression: 1: Severe lumbar spondylosis with red 1 degenerative spondylolisthesis at L5-S1 .
== END ==
PROVIDERS: PCP Nurse Practitioner Family; Visit Provider Nurse Practitioner Family
DX: M51.36 Other intervertebral disc degeneration, lumbar region (principal); M47.896 Other spondylosis, lumbar region
CPT/HCPCS: 72110

== ENCOUNTER 2022-08-26 11:29 | Outpatient (RCR) | payer OTHER, SELFPAY ==
[2022-08-26 12:00] VITALS: BMI 37.3
== END 2022-11-11 12:56 | disposition home or self-care (01) ==
LOC: ANHWOC 11:29
PROVIDERS: PCP Nurse Practitioner Family; Visit Provider Nurse Practitioner Family
DX: S80.822D Blister (nonthermal), left lower leg, subsequent encounter (principal); S81.802D Unspecified open wound, left lower leg, subsequent encounter; E11.52 Type 2 diabetes mellitus with diabetic peripheral angiopathy with gangrene; Z79.4 Long term (current) use of insulin
CPT/HCPCS: 99213; G0463

== ENCOUNTER 2022-09-08 09:23 | Outpatient (CLI) | payer OTHER, SELFPAY ==
--- NOTE | ~2022-09-08 | CT_ITS ---
CT Scan of the Chest without Contrast: Clinical Indication: Lung cancer screening, smoking history Technique: Contiguous sections were acquired throughout the chest without intravenous contrast. Dose reduction technique was used on this scan by utilizing automated exposure control and iterative recon struction technique. The dose-length product (DLP) was 418.13 mGy-cm. COMPARISON: 09/07/2021, 06/30/2021, 05/26/2020 Findings: There is no evidence of any significant mediastinal, hilar or axillary lymphadenopathy. There are ath erosclerotic calcifications of the aorta and coronary arteries. There is no evidence of pleural or pericardial effusion. Stable 1.2 cm right apical pulmonary nodule (axial image 17). Stable 3 mm left apical pulmonary nodul e (axial image 12). Images through the upper abdomen reveal no abnormalities. Impression: Lung RADS 2: Benign appearance. 12 month follow-up screening CT advised. Reviewed, dictated and finalized at [facility]. Impression: Lung RADS 2: Benign appearance. 12 month follow-up screening CT advised.
== END 2022-09-08 09:24 | disposition home or self-care (01) ==
LOC: ANHIMG 09:25
PROVIDERS: PCP Family Medicine; Visit Provider Nurse Practitioner Family
DX: Z12.2 Encounter for screening for malignant neoplasm of respiratory organs (principal); F17.210 Nicotine dependence, cigarettes, uncomplicated
CPT/HCPCS: 71271

== ENCOUNTER 2022-09-29 10:12 | Outpatient (CLI) | payer OTHER, SELFPAY ==
--- NOTE | ~2022-09-29 | US_ITS ---
EXAMINATION: US venous doppler [facility] DATE: 09/29/2022 10:51 INDICATION: Left lower limb swelling TECHNIQUE: Strauss scale images without and with compression and Doppler images of the left lower extrem ity veins were obtained. COMPARISON: None FINDINGS: The left common femoral vein, profunda femoral vein, femoral vein, popliteal vein, peroneal trunk, posterior tibial veins, and greater saphenous vein are patent. IMPRESSION: 1. Patent left lower extremity veins. No evidence of deep venous thrombosis. Reviewed, dictated and finalized at location []
== END 2022-09-29 10:13 | disposition home or self-care (01) ==
PROVIDERS: PCP Family Medicine; Visit Provider Internal Medicine Nephrology
DX: M79.89 Other specified soft tissue disorders (principal)
CPT/HCPCS: 93971

== ENCOUNTER 2022-10-26 08:30 | Outpatient (RCR) | payer OTHER, SELFPAY ==
--- NOTE | 2022-09-09 14:21 | PCPTNOTE ---
pt called and rescheduled today's eval appt.
--- NOTE | 2022-09-16 08:19 | PCPTNOTE ---
Patient called & cancelled scheduled appointment this date due to having a doctor's visit.
--- NOTE | 2022-09-23 10:28 | OPREHPOC ---
Outpatient Therapy Plan of Care This is a Multidisciplinary Plan of Care that may contain components documented by all disciplines (PT, OT, and ST.) PT Problem 1 PT Problem #1 Knowledge Deficit PT Goal 1 Goal 1. Patient will demonstrate independence with home exercise program PT Problem 2 PT Problem #2 Pain PT Goal 1 Goal 1. Patient will report L shoulder pain as 4/10 with abduction PT Problem 3 PT Problem #3 Impaired Flexibility PT Goal 1 Goal 1. Patient will demonstrate L shoulder abduction and scaption WNL PT Problem 4 PT Problem #4 Impaired Strength PT Goal 1 Goal 1. Patient will increase L shoulder abduction strength to 4+/5 2. Patient will increase L shoulder external rotation strength to 45+/5 3. Patient will report ability to maintain upright posture for 30 minutes at home due to improvements in postural musculature strength
--- NOTE | 2022-09-23 10:28 | PTOPEVAL1 ---
Assessment and note entered by Tanya Casas, PT Evaluation Information Assessment Status Evaluation Diagnosis back pain and L shoulder pain Onset back pain chronic, L shoulder pain 8 months ago Subjective Information Patient referred due to back and shoulder pain. Back pain is chornic, xray shows severe spondylosis L1. Pain rated as 0/10 currently in back. Patient wishes to not address back pain at this time Patient shoulder pain began after a fall in shower xrays were negative, no MRI completed. Patient reports L shoulder pain as 8/10 when lifting object or raising his arm. Patient goal is to decrease pain and improve ability to lift arm above head. MD told patient that they would like to try rehab before pursuing further imaging of shoulder Reported Pain Level Pain Score 8: Self Report Assessment PT Clinical Summary Patient referred to physical therapy due to back pain and L shoulder pain. Patient wishes to focus on L shoulder pain at this time rather than back. Pain reported as 8/10 and increases with shoulder abduction and external rotation, pain limits ability to perform lifting with L arm and chores at home. MD would like to attempt PT before pursuing further imaging of L shoulder. Patient presents with decreased L shoulder strength particularly in shoulder abductor and external rotation, impaired L shoulder active abduction, postural impairments, and pain. Recommending skilled PT 1-2x/wk for 4 weeks to improve strength , range of motion and decrease pain. Plan of Care Interventions Electrical Stimulation,Gait Training,Hot Pack/Cold Pack,Manual Therapy,Patient/Caregiver Education, Therapeutic Activities,Therapeutic Exercise, Ultrasound PT Services Indicated Yes Treatment Frequency and 1-2x/wk for 4 weeks Duration These treatments will address the objective and functional deficits as defined above. The patient will be advanced safely and appropriately in order for the patient to progress towards his/her prior level of function. Additional exercises will be introduced and as well as a comprehensive home exercise program upon discharge, if needed, ?to ensure carryover of functional gains achieved in the clinic. This treatment plan has been reviewed and agreement upon by the patient.
--- NOTE | 2022-10-01 10:17 | PCPTNOTE ---
Pt. canceled (10/01/22) as the copay was an issue for him.
--- NOTE | 2022-10-26 09:05 | PTOPDC ---
Assessment and note entered by Tanya Casas, PT Evaluation Information Assessment Status Discharge Diagnosis L shoulder pain Onset back pain chronic, L shoulder pain 8 months ago Subjective Information Patient denies pain at this time, reports good compliance with exercises and good return to daily activities. Reported Pain Level Pain Score 0: Self Report Assessment PT Clinical Summary Patient has met all PT goals at this time. Strength, range of motion are WNL and patient has returned to normal daily activities at home. Minimal pain reported with activity in L shoulder, patient reports he was previously unable to lift a milk jug due to pain/weakness and he is now able to do it without difficulty. Patient is independent with home exercise program, will DC from PT at this time. Plan of Care PT Services Indicated No
== END 2022-10-26 15:03 | disposition home or self-care (01) ==
LOC: ANHPT 08:30
PROVIDERS: PCP Nurse Practitioner Family; Visit Provider Nurse Practitioner Family
DX: M51.36 Other intervertebral disc degeneration, lumbar region (principal); M25.512 Pain in left shoulder
CPT/HCPCS: 97110; 97162; 97530

== ENCOUNTER → 2022-11-27 11:13 | Outpatient (CLI) | payer OTHER, SELFPAY ==
--- NOTE | ~2022-11-27 | XR_ITS ---
XR cervical spine 4-5V DATE: 11/27/2022 11:34 INDICATION: Neck pain TECHNIQUE: AP, open-mouth, odontoid, lateral and swimmer views COMPARISON: 09/30/2017 CT cervical spine FINDINGS: Mild cervical and upper thoracic dextroscoliosis. C1 and C2 are normally aligned and the od ontoid process is intact. There is slight anterolisthesis at C2-3 but the cervical interspaces at this level as well preserved. Moderately severe degenerative disc disease and mild retrolisthesis at C3-4. Mild degenerative disc disease at C4-5, C5-6 and moderate moderate degenerative disc disease at C6-7. There is degenerative spurring of the thoracic spine. No fracture or dislocation or locked facet of the cervical spine. IMPRESSION: Moderate cervical spondylosis; no fracture or dislocation Reviewed, dictated and finalized at location A.
== END ==
PROVIDERS: PCP Family Medicine; Visit Provider Family Medicine
DX: M47.892 Other spondylosis, cervical region (principal)
CPT/HCPCS: 72050

== ENCOUNTER → 2022-11-30 13:33 | Outpatient (CLI) | payer OTHER, SELFPAY ==
--- NOTE | ~2022-11-30 | XR_ITS ---
XR hand LT 2V DATE: 11/30/2022 13:54 INDICATION: Fall 2 days ago. Left hand pain, particularly at fourth and fifth metacarpal area TECHNIQUE: 3 views COMPARISON: None FINDINGS: There is mild osteoarthritis, primarily at the first metacarpophalangeal joint and distal i nterphalangeal joint of the third digit. No fracture or dislocation, periosteal reaction or bone dest ruction, erosive change or chondrocalcinosis. IMPRESSION: Mild osteoarthritis Reviewed, dictated and finalized at location L. IMPRESSION: Mild osteoarthritis
--- NOTE | ~2022-11-30 | XR_ITS ---
XR elbow LT 2V DATE: 11/30/2022 13:55 INDICATION: Left elbow pain following falling down steps 2 days ago TECHNIQUE: 5 views COMPARISON: None FINDINGS: No fracture or dislocation or joint effusion. No periosteal reaction or bone destruction. T here is mild degenerative spurring. IMPRESSION: Mild degenerative change; no fracture or dislocation or joint effusion Reviewed, dictated and finalized at location L. IMPRESSION: Mild degenerative change; no fracture or dislocation or joint effus ion
== END ==
PROVIDERS: PCP Family Medicine; Visit Provider Nurse Practitioner Family
DX: M25.522 Pain in left elbow (principal); M79.642 Pain in left hand; W10.8XXA Fall (on) (from) other stairs and steps, initial encounter; M19.042 Primary osteoarthritis, left hand
CPT/HCPCS: 73070; 73120

== ENCOUNTER 2022-12-21 16:42 | Emergency (ER) | payer OTHER, SELFPAY ==
[2022-12-21 16:59] VITALS: BP 155/59; PULSE 74; RESP 16; TEMP 36.3; O2SAT 98
--- NOTE | 2022-12-21 17:16 | ED.GENADULT ---
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 Reports persistent productive cough of beige phlegm since having Covid about one month ago. Endorses left ear and gum pain since yesterday. Patient denies difficulty swallowing or breathing. Nodule in neck is not tender. Not taking anything for symptoms. Related Data Home Medications Medication Instructions Recorded Confirmed aspirin 81 mg tablet,delayed 81 mg PO DAILY 05/27/20 12/21/22 release cholecalciferol (vitamin D3) 125 5,000 unit PO DAILY 05/05/22 12/21/22 mcg (5,000 unit) capsule cyanocobalamin (vitamin B-12) 1,000 mcg PO DAILY 05/05/22 12/21/22 1,000 mcg tablet (Vitamin B-12) lisinopril 40 mg tablet 40 mg PO . q.a.m. 05/05/22 12/21/22 Allergies Allergy/AdvReac Type Severity Reaction Status Date / Time erythromycin base AdvReac Intermediate Gastrointestinal Verified 12/21/22 17:00 Upset tetracycline AdvReac Intermediate Gastrointestinal Verified 12/21/22 17:00 Upset Penicillins AdvReac Mild Hives Verified 12/21/22 17:00 Review of Systems Review of Systems: CONSTITUTIONAL: Denies malaise, chills, or fever. EYES: Denies visual changes, redness, or discharge. ENT: Denies sinus pain, dental pain, sore throat. Reports ear pain, runny nose CARDIOVASCULAR: Denies chest pain, palpitations, or edema. RESPIRATORY: Reports cough Denies dyspnea. GASTROINTESTINAL: Denies abdominal pain, nausea, vomiting, diarrhea SKIN: Denies rash or itching. MUSCULOSKELETAL: Denies myalgia. NEUROLOGIC: Denies headache. All systems reviewed & are unremarkable except as noted in HPI and below PMFSH Past Medical History Medical History Aortic stenosis Blister of left leg without infection BMI 36.0-36.9,adult BMI 37.0-37.9, adult Cardiac murmur Carotid stenosis Cellulitis Chronic bilateral low back pain with bilateral sciatica x-ray of the lumbar spine on 08/17/2022 reveals severe lumbar spondylosis. Chronic neck pain Moderate spondylosis on cervical spine x-ray in urgent care 11/27/2022. Chronic obstructive pulmonary disease Class 3 severe obesity due to excess calories with serious comorbidity and body mass index (BMI) greater than or equal to 70 in adult Colon cancer screening COVID-19 (~11/16/22) COVID-19 vaccine series completed Diabetes Dyslipidemia Dyslipidemia associated with type 2 diabetes mellitus Emphysema lung Erythrocytosis Essential (primary) hypertension Fall down stairs Gastro-esophageal reflux disease without esophagitis Left elbow pain Left hand pain Left leg swelling Left shoulder pain Lumbar degenerative disc disease Lung mass Lung nodule Male erectile dysfunction, unspecified Mixed hyperlipidemia Cholesterol 141, triglycerides 142, HDL 34, LDL 83 with ratio 4.1 on 11/11/2022. 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 Nocturnal hypoxemia due to emphysema Obesity WHITNEY (obstructive sleep apnea) failure on CPAP, treated with weight loss Polyp of colon (12/01/20) multiple polyps 12/01/2020 with recheck in 3 years. Proteinuria Renal cyst Seasonal allergic rhinitis Spinal stenosis, unspecified region other than cervical Tobacco abuse counseling Type 2 diabetes mellitus with diabetic peripheral angiopathy and gangrene, with long-term current use of insulin Hemoglobin A1c 5.8 on 10/28/2022. Fasting glucose 101 with hemoglobin A1c 5.5 on 11/11/2022. Vaccine counseling Vitamin B12 deficiency Wound of left lower extremity Surgical History Surgical History (Reviewed
[2022-12-21 17:26] VITALS: BP 155/59; PULSE 74; RESP 16; TEMP 36.3; O2SAT 98
== END 2022-12-21 17:30 | disposition home or self-care (01) ==
PROVIDERS: Emergency Provider Nurse Practitioner Family; PCP Family Medicine
DX: H66.002 Acute suppurative otitis media without spontaneous rupture of ear drum, left ear (principal); R22.1 Localized swelling, mass and lump, neck; F17.210 Nicotine dependence, cigarettes, uncomplicated; I35.0 Nonrheumatic aortic (valve) stenosis; I65.29 Occlusion and stenosis of unspecified carotid artery; I10 Essential (primary) hypertension; R01.1 Cardiac murmur, unspecified; J44.9 Chronic obstructive pulmonary disease, unspecified; K21.9 Gastro-esophageal reflux disease without esophagitis; M51.36 Other intervertebral disc degeneration, lumbar region; E11.42 Type 2 diabetes mellitus with diabetic polyneuropathy; E78.2 Mixed hyperlipidemia; Z85.828 Personal history of other malignant neoplasm of skin; E53.8 Deficiency of other specified B group vitamins; Z79.82 Long term (current) use of aspirin
CPT/HCPCS: 99213; G0463

== ENCOUNTER 2023-01-27 07:08 | Outpatient (RCR) | payer OTHER, SELFPAY ==
[2023-01-13 12:00] VITALS: BMI 36.7
--- NOTE | 2023-02-16 08:53 | PCWOUND ---
WOCN NOTE Patient called to cancel for tomorrow, states he is healed and closed.
== END 2023-04-11 11:58 | disposition home or self-care (01) ==
LOC: ANHWOC 07:08
PROVIDERS: PCP Family Medicine; Visit Provider Family Medicine
DX: S81.809D Unspecified open wound, unspecified lower leg, subsequent encounter (principal); L03.90 Cellulitis, unspecified
CPT/HCPCS: 99213; A9270; G0463

== ENCOUNTER 2023-03-02 01:20 | Day surgery (SDC) | payer OTHER, SELFPAY ==
[2023-01-14 14:44] VITALS: BMI 36.5
[2023-02-14 13:51] VITALS: BMI 35.2
--- NOTE | 2023-02-28 10:22 | SUR.PREOP ---
Patient called regarding upcoming procedure. Reviewed preop instructions, appointment times, and procedure prep.
[2023-03-02 07:43] LABS: Glucose Point of Care 104 mg/dl (65-105)
[2023-03-02 07:44] VITALS: BP 175/67; PULSE 81; RESP 20; TEMP 36.1; O2SAT 99
[2023-03-02] MEDS: LACTATED RINGERS 1,000 ML 150 ML IV CONT (07:49)
--- NOTE | 2023-03-02 08:51 | WPDANESEPPF ---
Anes - Initial Pre Proc Eval Procedure: Operation Date: 03/02/23 09:00 Proposed Procedures p Esophagogastroduodenoscopy - Tyrone Anderson MD Date/Time: 03/02/23 08:51 Surgeon: Tyrone Anderson MD Pre Op Diagnosis: GERD Patient Data Age: 57 Gender: M Height: 1.73 m Weight: 108.1 kg Last Vital Signs Temp 97.0 F L 03/02/23 07:44 Pulse 81 03/02/23 07:44 Resp 20 03/02/23 07:44 BP 175/67 H 03/02/23 07:44 Pulse Ox 99 03/02/23 07:44 O2 Del Method Room Air 03/02/23 07:44 Allergies Allergy/AdvReac Type Severity Reaction Status Date / Time erythromycin base AdvReac Intermediate Gastrointestinal Verified 03/02/23 07:43 Upset tetracycline AdvReac Intermediate Gastrointestinal Verified 03/02/23 07:43 Upset Penicillins AdvReac Mild Hives Verified 03/02/23 07:43 Home Medications Medication Instructions Recorded Confirmed Type aspirin 81 mg tablet,delayed 81 mg PO DAILY 05/27/20 03/02/23 History release cholecalciferol (vitamin D3) 125 5,000 unit PO DAILY 05/05/22 03/02/23 History mcg (5,000 unit) capsule cyanocobalamin (vitamin B-12) 1,000 mcg PO DAILY 05/05/22 03/02/23 History 1,000 mcg tablet (Vitamin B-12) lisinopril 40 mg tablet 40 mg PO . q.a.m. 05/05/22 03/02/23 History metformin 1,000 mg tablet 1,000 mg PO BID #180 tabs 06/11/22 03/02/23 Rx atorvastatin 40 mg tablet 40 mg PO QHS #90 tabs 06/21/22 03/02/23 Rx empagliflozin 25 mg tablet 25 mg PO DAILY #90 tabs 07/19/22 03/02/23 Rx (Jardiance) metoprolol succinate 100 mg 100 mg PO DAILY #90 tabs 07/21/22 03/02/23 Rx tablet,extended release 24 hr fenofibric acid (choline) 135 mg 135 mg PO HS #90 caps 08/02/22 03/02/23 Rx capsule,delayed release triamterene 37.5 1 tablet PO QAM #90 tabs 08/09/22 03/02/23 Rx mg-hydrochlorothiazide 25 mg tablet blood sugar diagnostic (Contour See Rx Instructions .Route 08/12/22 03/02/23 Rx Next Test Strips) .COMPLEX #200 strips cyclobenzaprine 10 mg tablet 10 mg PO TID PRN muscle spasm #90 08/17/22 03/02/23 Rx tabs omeprazole 20 mg capsule,delayed 40 mg PO DAILY 90 days #180 caps 12/30/22 03/02/23 Rx release albuterol sulfate 90 mcg/actuation 1 - 2 puff inhalation Q4-6H PRN 01/12/23 03/02/23 Rx aerosol inhaler (ProAir HFA) shortness of breath or wheezing #8.5 grams fluticasone propionate 50 50 mcg intranasal DAILY 01/12/23 03/02/23 History mcg/actuation nasal spray,suspension diltiazem HCl 240 mg 240 mg PO DAILY 01/14/23 03/02/23 History capsule,extended release 24 hr (Cardizem CD) dulaglutide 3 mg/0.5 mL 3 mg subcut WEEKLY 01/14/23 03/02/23 History subcutaneous pen injector (Trulicity) insulin glargine U-300 conc 300 15 unit subcut DAILY 01/14/23 03/02/23 History unit/mL (1.5 mL) subcutaneous pen (Toujeo SoloStar U-300 Insulin) furosemide 40 mg tablet 40 mg PO QAM #30 tabs 01/24/23 03/02/23 Rx Laboratory Tests 03/02/23 07:41 POC Capillary Glucose 104 mg/dl (65-105) Patient hx anesthesia problems: none Family hx anesthesia problems: none Results Review: All pre-operative results and documents have been reviewed as part of the pre-operative evaluation. [facility] Past Medical History Medical History Aortic stenosis Blister of left leg without infection BMI 36.0-36.9,adult BMI 37.0-37.9, adult Cardiac murmur Carotid stenosis Cellulitis Chronic bilateral low back pain with bilateral sciatica x-ray of the lumbar spine on 08/17/2022 reveals severe lumbar spondylosis. Chronic neck pain Moderate spondylosis on cervical spine x-ray in urgent care 11/27/2022. Chronic obstructive pulmonary disease Class 3 severe obesity due to excess calories with serious comorbidity and body mass index (BMI) greater than or equal to 70 in adult Colon cancer screening COVID-19 (~11/16/22) COVID-19 vaccine series completed Diabetes Dyslipidemia Dyslipid
--- NOTE | 2023-03-02 08:53 | PM.HPGS ---
History of Present Illness History of Present Illness Consent: Risks, benefits, and alternatives have been discussed and questions answered. Patient agrees to proceed with procedure. Chief complaint: GERD Narrative: Sean Cueto Jr. is a 57 year old male with gerd and chest discomfort but this has improved after I increased her omeprazole, still with sensation of pills getting stuck at throat Review of Systems Constitutional: Constitutional: Denies headache(s) and Denies weakness Eyes: Eyes: Denies blurry vision ENT: Reports Normal hearing present, Denies headache(s) and Denies neck pain Cardiovascular: Cardiovascular: Denies chest pain and Denies dyspnea Respiratory: Respiratory: Denies dyspnea Gastrointestinal: Gastrointestinal: Reports no additional gastrointestinal complaints Genitourinary: Genitourinary: Denies dysuria Musculoskeletal: Musculoskeletal: Denies neck pain Integumentary/Breasts: Skin/Breast: Denies dry skin Neurologic: Reports Normal hearing present, Denies headache(s) and Denies weakness Psychiatric: Psychiatric: Denies anxiety Endocrine: Endocrine: Denies change in body appearance Hematologic/Lymphatic: Hematologic/Lymphatic: Denies easy bleeding Allergic/Immunologic: Allergic/Immunologic: Denies urticaria PMFSH Past Medical History Medical History Aortic stenosis Blister of left leg without infection BMI 36.0-36.9,adult BMI 37.0-37.9, adult Cardiac murmur Carotid stenosis Cellulitis Chronic bilateral low back pain with bilateral sciatica x-ray of the lumbar spine on 08/17/2022 reveals severe lumbar spondylosis. Chronic neck pain Moderate spondylosis on cervical spine x-ray in urgent care 11/27/2022. Chronic obstructive pulmonary disease Class 3 severe obesity due to excess calories with serious comorbidity and body mass index (BMI) greater than or equal to 70 in adult Colon cancer screening COVID-19 (~11/16/22) COVID-19 vaccine series completed Diabetes Dyslipidemia Dyslipidemia associated with type 2 diabetes mellitus Dysphagia Emphysema lung Erythrocytosis Essential (primary) hypertension Fall down stairs Gastro-esophageal reflux disease without esophagitis Left elbow pain Left hand pain Left leg swelling Left shoulder pain Lumbar degenerative disc disease Lung mass Lung nodule Male erectile dysfunction, unspecified Mixed hyperlipidemia Cholesterol 141, triglycerides 142, HDL 34, LDL 83 with ratio 4.1 on 11/11/2022. 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 Nocturnal hypoxemia due to emphysema Obesity Open wound, lower leg WHITNEY (obstructive sleep apnea) failure on CPAP, treated with weight loss Polyp of colon (12/01/20) multiple polyps 12/01/2020 with recheck in 3 years. Proteinuria Renal cyst Seasonal allergic rhinitis Spinal stenosis, unspecified region other than cervical Tobacco abuse counseling Type 2 diabetes mellitus with diabetic peripheral angiopathy and gangrene, with long-term current use of insulin Hemoglobin A1c 5.8 on 10/28/2022. Fasting glucose 101 with hemoglobin A1c 5.5 on 11/11/2022. Vaccine counseling Vitamin B12 deficiency Wound of left lower extremity Surgical History Surgical History H/O foot surgery History of placement of ear tubes No significant past surgical history (~05/2018) lap cholecystectomy left carpal tunnel right carpal tunnel R ear reconstructive surgery Family History Family History Father Diabetes mellitus Family history of coronary artery disease Family history of cardiovascular disease Mother Family history of chronic obstructive pulmonary disease Social History Social History Smoking packs per day: 1 Smoking cigarettes pe
[2023-03-02] MEDS: BENZOCAINE (*SP) 60 ML SPRAY CAN (HURRICAINE) 1 SPRAY MUCOUS MEM (08:57)
[2023-03-02 09:04] VITALS: BP 207/101; PULSE 96; RESP 20; O2SAT 100
[2023-03-02 09:14] VITALS: BP 177/101; PULSE 93; RESP 20; O2SAT 100
[2023-03-02 09:23] VITALS: BP 189/98; PULSE 88; RESP 20; O2SAT 100
[2023-03-02 09:30] VITALS: BP 163/82; PULSE 88; RESP 26; O2SAT 100
== END 2023-03-02 09:35 | disposition home or self-care (01) ==
PROVIDERS: PCP Family Medicine; Visit Provider Internal Medicine Gastroenterology
PROC: 0DJ08ZZ Inspection of Upper Intestinal Tract, Via Natural or Artificial Opening Endoscopic (ICD-10-PCS; CPT 43235; principal; 2023-03-02 09:00)
DX: K21.00 Gastro-esophageal reflux disease with esophagitis, without bleeding (principal); K31.89 Other diseases of stomach and duodenum; D13.0 Benign neoplasm of esophagus; I10 Essential (primary) hypertension; E78.2 Mixed hyperlipidemia; R09.02 Hypoxemia; G47.33 Obstructive sleep apnea (adult) (pediatric); E11.52 Type 2 diabetes mellitus with diabetic peripheral angiopathy with gangrene; E53.8 Deficiency of other specified B group vitamins; J43.8 Other emphysema; F17.210 Nicotine dependence, cigarettes, uncomplicated; F12.90 Cannabis use, unspecified, uncomplicated; R01.1 Cardiac murmur, unspecified; G89.29 Other chronic pain; N52.9 Male erectile dysfunction, unspecified; E66.9 Obesity, unspecified; Z68.36 Body mass index [BMI] 36.0-36.9, adult; Z79.82 Long term (current) use of aspirin; Z79.84 Long term (current) use of oral hypoglycemic drugs; Z79.51 Long term (current) use of inhaled steroids; Z79.85 Long-term (current) use of injectable non-insulin antidiabetic drugs; Z79.4 Long term (current) use of insulin; Z90.49 Acquired absence of other specified parts of digestive tract; Z86.79 Personal history of other diseases of the circulatory system; Z85.828 Personal history of other malignant neoplasm of skin; Z86.010 Personal history of colon polyps; Z82.49 Family history of ischemic heart disease and other diseases of the circulatory system
CPT/HCPCS: 43239; 82948; 88305; J2704; J7120

== ENCOUNTER 2023-06-22 13:48 | Outpatient (CLI) | payer OTHER, SELFPAY ==
[2023-06-22 14:03] LABS: Basophils Absolute Auto 0.1 K/mm3 (0.0-0.1); Basophils Percent Auto 0.4 % (0.2-1.2); Eosinophils Absolute Auto 0.1 K/mm3 (0-0.3); Hematocrit 48.8 % (42.0-52.0); Hemoglobin 15.7 g/dL (14.0-18.0); Immature Granulocyte Absolute 0.23 K/mm3 (0.00-0.031); Immature Granulocyte Percent A 1.7 % (0-0.5); Lymphocytes Absolute Auto 2.11 K/mm3 (0.9-3.2); Lymphocytes Percent Auto 15.8 % (18.3-44.2); Mean Corpuscular HGB Conc 32.2 g/dl (32-36); Mean Corpuscular Hemoglobin 29.6 pg (26-34); Mean Corpuscular Volume 91.9 fl (80-100); Mean Platelet Volume 9.3 fl (7.4-10.4); Monocytes Absolute Auto 0.8 K/mm3 (0.1-0.6); Monocytes Percent Auto 6.1 % (2.6-8.5); Platelet Count Result 286 k/mm3 (150-375); Red Blood Count 5.31 M/mm3 (4.6-6.20); Red Cell Distribution Width 14.1 % (11.5-14.5); White Blood Count 13.4 K/mm3 (4.5-10.0)
[2023-06-22 14:09] LABS: Blood Urea Nitrogen 37 mg/dL (8-26); Carbon Dioxide 28 mmol/L (22-30); Chloride 101 mmol/L (98-109); Estimated Glomerular Filt Rate 48; Glucose 117 mg/dL (70-105); Ionized Calcium (POC) 1.14 mmol/L (1.11-1.31); Potassium 4.1 mmol/L (3.5-4.9); Sodium 141 mmol/L (138-146)
== END 2023-06-22 13:49 | disposition home or self-care (01) ==
PROVIDERS: PCP Family Medicine; Visit Provider Internal Medicine Hematology & Oncology
DX: D75.1 Secondary polycythemia (principal)
CPT/HCPCS: 36415; 80047; 85025

== ENCOUNTER 2023-08-04 19:28 | Emergency (ER) | payer OTHER, SELFPAY ==
--- NOTE | 2023-08-04 19:34 | ED.URI ---
HPI - URI/Sore Throat General Chief Complaint: Upper Respiratory Infection Stated Complaint: Sinus Problems and Fever Source: patient Mode of arrival: ambulatory Limitations: no limitations History of Present Illness HPI Narrative: 57-year-old male with history of hypertension, COPD, diabetes presented for complaint of sinus pressure, nasal congestion and drainage, cough, subjective over the past 2 days. Endorses blowing nose frequently, and cough is productive of green sputum at times. Denies shortness of breath, wheezing, nausea, vomiting, diarrhea or lethargy. Taking prabha seltzer. Smokes 1.5ppd. Related Data Home Medications Medication Instructions Recorded Confirmed aspirin 81 mg tablet,delayed 81 mg PO DAILY 05/27/20 08/04/23 release cholecalciferol (vitamin D3) 125 5,000 unit PO DAILY 05/05/22 08/04/23 mcg (5,000 unit) capsule cyanocobalamin (vitamin B-12) 1,000 mcg PO DAILY 05/05/22 08/04/23 1,000 mcg tablet (Vitamin B-12) fluticasone propionate 50 50 mcg intranasal DAILY 01/12/23 08/04/23 mcg/actuation nasal spray,suspension dulaglutide 3 mg/0.5 mL 3 mg subcut WEEKLY 01/14/23 08/04/23 subcutaneous pen injector (Trulicity) insulin glargine U-300 conc 300 15 unit subcut DAILY 01/14/23 08/04/23 unit/mL (1.5 mL) subcutaneous pen (Toujeo SoloStar U-300 Insulin) cyclobenzaprine 10 mg tablet 10 mg PO TID muscle spasm 08/04/23 08/04/23 Allergies Allergy/AdvReac Type Severity Reaction Status Date / Time erythromycin base AdvReac Intermediate Gastrointestinal Verified 08/04/23 19:35 Upset tetracycline AdvReac Intermediate Gastrointestinal Verified 08/04/23 19:35 Upset Penicillins AdvReac Mild Hives Verified 08/04/23 19:35 Review of Systems Review of Systems: CONSTITUTIONAL: Denies body aches, reports fever EYES: Denies visual changes, redness, or discharge. ENT: reports rhinorrhea, congestion, denies sore throat, or otalgia. CARDIOVASCULAR: Denies chest pain, palpitations, or edema. RESPIRATORY: Reports cough, denies sob, wheezing. GASTROINTESTINAL: Denies abdominal pain, nausea, vomiting, or diarrhea. MUSCULOSKELETAL: Denies myalgia. NEUROLOGIC: Denies headache, numbness, tingling, or weakness. All systems reviewed & are unremarkable except as noted in HPI and below PMFSH Past Medical History Medical History Abdominal pannus large abdominal pannus after 160 lb weight loss Acute non-recurrent maxillary sinusitis Aortic stenosis Atypical chest pain Blister of left leg without infection BMI 36.0-36.9,adult BMI 37.0-37.9, adult Cardiac murmur Carotid stenosis Cellulitis Chronic bilateral low back pain with bilateral sciatica x-ray of the lumbar spine on 08/17/2022 reveals severe lumbar spondylosis. Chronic neck pain Moderate spondylosis on cervical spine x-ray in urgent care 11/27/2022. Chronic obstructive pulmonary disease Class 3 severe obesity due to excess calories with serious comorbidity and body mass index (BMI) greater than or equal to 70 in adult Colon cancer screening COVID-19 (~11/16/22) COVID-19 vaccine series completed Diabetes Dyslipidemia Dyslipidemia associated with type 2 diabetes mellitus Dysphagia Emphysema lung Erythrocytosis Essential (primary) hypertension Fall down stairs Gastro-esophageal reflux disease without esophagitis EGD on 03/02/2023 with biopsy with mild esophagitis and gastropathy. GERD with esophagitis Inflamed skin tag (~05/31/23) left upper eyelid margin Left elbow pain Left hand pain Left leg swelling Left shoulder pain Lumbar degenerative disc disease Lung mass Lung nodule Male erectile dysfunction, unspecified Mixed hyperlipidemia Cholesterol 141, triglycerides 142, HDL 34, LDL 83 with ratio 4.1 on 11/11/2022. 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 Nocturnal hypoxemia due to emphysema Obesity
[2023-08-04 19:36] VITALS: BP 166/68; PULSE 93; RESP 18; TEMP 36.4; O2SAT 95
[2023-08-04 19:37] VITALS: BP 166/68; PULSE 93; RESP 18; TEMP 36.4; O2SAT 95
== END 2023-08-04 20:05 | disposition home or self-care (01) ==
PROVIDERS: Emergency Provider Nurse Practitioner Family; PCP Family Medicine
DX: B34.9 Viral infection, unspecified (principal); Z20.822 Contact with and (suspected) exposure to COVID-19; F17.210 Nicotine dependence, cigarettes, uncomplicated; F12.90 Cannabis use, unspecified, uncomplicated; I35.0 Nonrheumatic aortic (valve) stenosis; R01.1 Cardiac murmur, unspecified; J44.9 Chronic obstructive pulmonary disease, unspecified; E78.5 Hyperlipidemia, unspecified; I10 Essential (primary) hypertension; K21.00 Gastro-esophageal reflux disease with esophagitis, without bleeding; E78.2 Mixed hyperlipidemia; E11.42 Type 2 diabetes mellitus with diabetic polyneuropathy; Z79.4 Long term (current) use of insulin; E53.8 Deficiency of other specified B group vitamins; Z85.828 Personal history of other malignant neoplasm of skin; Z79.82 Long term (current) use of aspirin
CPT/HCPCS: 87426; 87804; 99213; G0463

== ENCOUNTER 2023-08-07 04:39 | Inpatient (IN) | payer OTHER, SELFPAY ==
[2023-08-07] VITALS (32 sets, daily range): BP systolic 91–195; BP diastolic 56–100; PULSE 84–117; RESP 18–28; TEMP 36.2–37.7; O2SAT 88–98; BMI 35.5
--- NOTE | ~2023-08-07 | XR_ITS ---
EXAMINATION: XR chest 1V portable DATE: 08/07/2023 05:54 INDICATION: Dyspnea. TECHNIQUE: A single frontal view of the chest was obtained on 2 radiographs. COMPARISON: Chest single view 10/24/2016, chest CT 09/08/2022 FINDINGS: There are airspace opacities in the lower lung zones. No pleural effusion or pneumothorax. The heart size is normal. IMPRESSION: 1. Airspace opacities in the lower lung zones, consistent with atelectasis versus pneumonia versus mi ld pulmonary edema. Reviewed, dictated and finalized at location A. IMPRESSION: 1. Airspace opacities in the lower lung zones, consistent with atelectasis vers us pneumonia versus mild pulmonary edema.
--- NOTE | 2023-08-07 04:58 | ECG_ITS ---
SEE SCANNED COPY FOR CONFIRMED REPORT MTDD
[2023-08-07] MEDS: IPRATROPIUM 0.5 MG/ALBUTEROL SULFATE 2.5 MG AMPUL.NEB 3 ML INHALATION ×4 (05:16→20:10)
[2023-08-07 05:18] LABS: Basophils Absolute Auto 0.1 K/mm3 (0.0-0.1); Basophils Percent Auto 0.4 % (0.2-1.2); Eosinophils Percent Auto 0.1 % (0-4.4); Hematocrit 47.7 % (42.0-52.0); Hemoglobin 15.6 g/dL (14.0-18.0); Immature Granulocyte Absolute 0.21 K/mm3 (0.00-0.031); Immature Granulocyte Percent A 0.9 % (0-0.5); Lymphocytes Percent Auto 3.8 % (18.3-44.2); Mean Corpuscular HGB Conc 32.7 g/dl (32-36); Mean Corpuscular Hemoglobin 28.8 pg (26-34); Mean Corpuscular Volume 88.2 fl (80-100); Mean Platelet Volume 9.9 fl (7.4-10.4); Monocytes Absolute Auto 1.9 K/mm3 (0.1-0.6); Monocytes Percent Auto 7.9 % (2.6-8.5); Neutrophils Absolute Auto 20.6 K/mm3 (1.3-6.7); Neutrophils Percent Auto 86.9 % (45.5-73.1); Platelet Count Result 383 k/mm3 (150-375); Red Blood Count 5.41 M/mm3 (4.6-6.20); Red Cell Distribution Width 14.1 % (11.5-14.5); White Blood Count 23.7 K/mm3 (4.5-10.0)
[2023-08-07 05:19] LABS: Alanine Aminotransferase 61 U/L (6-50); Alkaline Phosphatase 84 U/L (38-126); Anion Gap 10 mmol/L (4-12); Aspartate Amino Transferase 64 U/L (17-59); Bilirubin,Total 0.9 mg/dL (0.2-1.3); Blood Urea Nitrogen 30 mg/dL (9-20); Calcium 9.4 mg/dL (8.4-10.2); Carbon Dioxide 28 mmol/L (22-30); Chloride 96 mmol/L (98-107); Estimated CRCL calculation 70 ml/min; Estimated Glomerular Filt Rate > 60; Glucose 151 mg/dL (65-110); Lactic Acid Reflex 1.1 mmol/L (0.7-2.0); Magnesium 1.9 mg/dL (1.6-2.3); Potassium 3.1 mmol/L (3.4-5.0); Sodium 134 mmol/L (137-145)
[2023-08-07 05:20] LABS: Partial Thromboplastin Time 33.9 Seconds (22.3-36.8)
[2023-08-07 05:27] LABS: NT Pro B Type Natriuretic Pept 3380 pg/mL (19.9-100)
[2023-08-07 05:44] LABS: Influenza A QL RT-PCR Negative (Negative); Influenza B QL RT-PCR Negative (Negative); RSV RNA, RT-PCR Negative (Negative); SARS-CoV-2 RNA PCR Negative (Negative)
--- NOTE | 2023-08-07 06:09 | PC.NURSE ---
Patient ambulated to the bathroom and back to his room with steady gait. Patient O2 sat dropped to 86% on RA, placed back on O2 and increased to 93% via 3L NC.
--- NOTE | 2023-08-07 06:25 | ED.GENADULT ---
HPI - General Adult General Chief complaint: Shortness of Breath/Dyspnea Stated complaint: shortness of breath Time Seen by Provider: 08/07/23 04:50 History of Present Illness HPI narrative: Patient 57-year-old gentleman presents emergency department with chief complaint of shortness of breath. Patient reports he was seen in urgent care diagnosed with bronchitis started on prednisone and reports that he has been having increasing shortness of breath and cough. Patient reports he has had a low-grade fever at home Related Data Home Medications Medication Instructions Recorded Confirmed aspirin 81 mg tablet,delayed 81 mg PO DAILY 05/27/20 08/04/23 release cholecalciferol (vitamin D3) 125 5,000 unit PO DAILY 05/05/22 08/04/23 mcg (5,000 unit) capsule cyanocobalamin (vitamin B-12) 1,000 mcg PO DAILY 05/05/22 08/04/23 1,000 mcg tablet (Vitamin B-12) fluticasone propionate 50 50 mcg intranasal DAILY 01/12/23 08/04/23 mcg/actuation nasal spray,suspension dulaglutide 3 mg/0.5 mL 3 mg subcut WEEKLY 01/14/23 08/04/23 subcutaneous pen injector (Trulicity) insulin glargine U-300 conc 300 15 unit subcut DAILY 01/14/23 08/04/23 unit/mL (1.5 mL) subcutaneous pen (Toujeo SoloStar U-300 Insulin) cyclobenzaprine 10 mg tablet 10 mg PO TID muscle spasm 08/04/23 08/04/23 Allergies Allergy/AdvReac Type Severity Reaction Status Date / Time erythromycin base AdvReac Intermediate Gastrointestinal Verified 08/07/23 04:43 Upset tetracycline AdvReac Intermediate Gastrointestinal Verified 08/07/23 04:43 Upset Penicillins AdvReac Mild Hives Verified 08/07/23 04:43 Review of Systems Review of Systems: A 10 system review of systems was completed on the patient and is negative except for what is stated in the HPI. Nursing and ancillary documentation was reviewed. [facility] Past Medical History Medical History Abdominal pannus large abdominal pannus after 160 lb weight loss Acute non-recurrent maxillary sinusitis Aortic stenosis Atypical chest pain Blister of left leg without infection BMI 36.0-36.9,adult BMI 37.0-37.9, adult Cardiac murmur Carotid stenosis Cellulitis Chronic bilateral low back pain with bilateral sciatica x-ray of the lumbar spine on 08/17/2022 reveals severe lumbar spondylosis. Chronic neck pain Moderate spondylosis on cervical spine x-ray in urgent care 11/27/2022. Chronic obstructive pulmonary disease Class 3 severe obesity due to excess calories with serious comorbidity and body mass index (BMI) greater than or equal to 70 in adult Colon cancer screening COVID-19 (~11/16/22) COVID-19 vaccine series completed Diabetes Dyslipidemia Dyslipidemia associated with type 2 diabetes mellitus Dysphagia Emphysema lung Erythrocytosis Essential (primary) hypertension Fall down stairs Gastro-esophageal reflux disease without esophagitis EGD on 03/02/2023 with biopsy with mild esophagitis and gastropathy. GERD with esophagitis Inflamed skin tag (~05/31/23) left upper eyelid margin Left elbow pain Left hand pain Left leg swelling Left shoulder pain Lumbar degenerative disc disease Lung mass Lung nodule Male erectile dysfunction, unspecified Mixed hyperlipidemia Cholesterol 141, triglycerides 142, HDL 34, LDL 83 with ratio 4.1 on 11/11/2022. 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 Nocturnal hypoxemia due to emphysema Obesity Open wound, lower leg WHITNEY (obstructive sleep apnea) failure on CPAP, treated with weight loss Polyp of colon (12/01/20) multiple polyps 12/01/2020 with recheck in 3 years. Proteinuria Regurgitation of food Renal cyst Seasonal allergic rhinitis Spinal stenosis, unspecified region other than cervical Tobacco abuse counseling Type 2 diabetes mellitus with diabetic peripheral angiopathy and gangrene, with long-term current use of insulin
[2023-08-07] MEDS: methylPREDNISolone SOD SUCC 125 MG VIAL IV PUSH (06:28)
[2023-08-07 06:34] LABS: Troponin I 0.032 ng/mL (0.000-0.034)
[2023-08-07 06:36] LABS: Prothrombin Time 13.8 Seconds (11.1-14.7)
[2023-08-07] MEDS: POTASSIUM CHLORIDE 20 MEQ PACKET (FOR LIQUID) 40 MEQ PO (06:37)
[2023-08-07] MEDS: levoFLOXacin 750 MG/D5W 150 ML 750 MG/150 ML BAG 100 MG IVPB (06:38)
[2023-08-07 06:39] LABS: Procalcitonin 0.2 ng/mL
--- NOTE | 2023-08-07 07:50 | ECG_ITS ---
SEE SCANNED COPY FOR CONFIRMED REPORT MTDD
[2023-08-07 08:20] LABS: Troponin I 0.039 ng/mL (0.000-0.034)
[2023-08-07 09:03] LABS: Add Urine Microscopic? YES; Appearance Urine Cloudy (Clear); Bacteria Urine None Seen /hpf; Bilirubin Urine Negative (Negative); Blood Urine 1+ (Negative); Color Urine Yellow (Yellow); Glucose Urine UA 3+ mg/dL (Negative); Ketones Urine 1+ mg/dL (Negative); Leukocyte Esterase Ur Negative LEU/UL (Negative); Need Manual Microscopic Reviewed; Nitrate Urine Negative (Negative); Non Pathogenic Casts >20; Protein Urine 4+ mg/dL (Negative); RBC Urine 0-2 /hpf (0-2); Specific Grav Ur 1.027 (1.001-1.035); Squamous Epithelial Cell Urine Few /hpf (Few); pH Urine 5.5 (5.0-9.0)
--- NOTE | 2023-08-07 09:59 | PC.NURSE ---
This patient, Sean Cueto Jr., was admitted to Medical Room 249-01. Patient/family oriented to hospital policies and general routines including ID bracelet, bed and alarms, visiting hours, pain management, procedures, bathroom and other care routines, personal items, smoking policy, room service/diet, and visiting hours. Information on how to activate the Rapid Response Team has been discussed. Patient/Family are encouraged to report perceived risks to care and to ask questions if they do not understand what they are told or what they should do.
--- NOTE | 2023-08-07 10:27 | ECG_ITS ---
SEE SCANNED COPY FOR CONFIRMED REPORT MTDD
[2023-08-07] MEDS: ASPIRIN 81 MG ENTERIC TABLET PO (10:28)
[2023-08-07 11:24] LABS: Troponin I 0.034 ng/mL (0.000-0.034)
[2023-08-07 12:13] LABS: Glucose Point of Care 240 mg/dl (65-105)
--- NOTE | 2023-08-07 12:52 | PM.IMHP ---
H&P: HPI History of Present Illness Date/Time: 08/07/23 12:52 Chief Complaint: Shortness of breath cough Narrative: 57-year-old man presented with shortness of breath and cough ongoing since past 4 5 days. He was in Urgent Care recently was diagnosed with bronchitis. He has low-grade fever. Upon arrival to the ED last night his oxygen saturation was low and needed oxygen supplementation. That tree workup revealed WBC count of 23,000 lactic acid was normal COVID flu RSV were negative. Chest x-ray showed developing bilateral lower lobes. Blood culture were obtained and was started on antibiotics. Patient had erythromycin allergy/side effect with GI upset and was given levofloxacin. Patient is admitted for further evaluation and management. Review of Systems Review of Systems: - CONSTITUTIONAL: Denies weight loss, fever and chills. - HEENT: Denies changes in vision and hearing - RESPIRATORY: Reports SOB and cough. - CV: Denies palpitations and CP. - GI: Denies abdominal pain, nausea, vomiting and diarrhea. - : Denies dysuria and urinary frequency. - MSK: Denies myalgia and joint pain. - SKIN: Denies rash and pruritus. - NEUROLOGICAL: Denies headache and syncope. - PSYCHIATRIC: Denies recent changes in mood. Denies anxiety and depression. [facility] Past Medical History Medical History Abdominal pannus large abdominal pannus after 160 lb weight loss Acute non-recurrent maxillary sinusitis Aortic stenosis Atypical chest pain Blister of left leg without infection BMI 36.0-36.9,adult BMI 37.0-37.9, adult Cardiac murmur Carotid stenosis Cellulitis Chronic bilateral low back pain with bilateral sciatica x-ray of the lumbar spine on 08/17/2022 reveals severe lumbar spondylosis. Chronic neck pain Moderate spondylosis on cervical spine x-ray in urgent care 11/27/2022. Chronic obstructive pulmonary disease Class 3 severe obesity due to excess calories with serious comorbidity and body mass index (BMI) greater than or equal to 70 in adult Colon cancer screening COVID-19 (~11/16/22) COVID-19 vaccine series completed Diabetes Dyslipidemia Dyslipidemia associated with type 2 diabetes mellitus Dysphagia Emphysema lung Erythrocytosis Essential (primary) hypertension Fall down stairs Gastro-esophageal reflux disease without esophagitis EGD on 03/02/2023 with biopsy with mild esophagitis and gastropathy. GERD with esophagitis Inflamed skin tag (~05/31/23) left upper eyelid margin Left elbow pain Left hand pain Left leg swelling Left shoulder pain Lumbar degenerative disc disease Lung mass Lung nodule Male erectile dysfunction, unspecified Mixed hyperlipidemia Cholesterol 141, triglycerides 142, HDL 34, LDL 83 with ratio 4.1 on 11/11/2022. Neoplasm of skin changing pigmented nevus plantar surface left foot with anticipated biopsy by air compressor mechanic. Nocturnal hypoxemia due to emphysema Obesity Open wound, lower leg WHITNEY (obstructive sleep apnea) failure on CPAP, treated with weight loss Polyp of colon (12/01/20) multiple polyps 12/01/2020 with recheck in 3 years. Proteinuria Regurgitation of food Renal cyst Seasonal allergic rhinitis Spinal stenosis, unspecified region other than cervical Tobacco abuse counseling Type 2 diabetes mellitus with diabetic peripheral angiopathy and gangrene, with long-term current use of insulin Hemoglobin A1c 5.8 on 10/28/2022. Fasting glucose 101 with hemoglobin A1c 5.5 on 11/11/2022. Vaccine counseling Vitamin B12 deficiency Surgical History Surgical History H/O foot surgery History of placement of ear tubes No significant past surgical history (~05/2018) lap cholecystectomy left carpal tunnel right carpal tunnel R ear reconstructive surgery Family History Family History Hal
[2023-08-07 12:59] LABS: Hemoglobin A1C 5.9 % (<5.7)
[2023-08-07] MEDS: dilTIAZem HCL CD 240 MG CAP.24HR PO (13:50)
[2023-08-07] MEDS: methylPREDNISolone SOD SUCC 125 MG VIAL 60 MG IV PUSH ×2 (13:50→20:57)
[2023-08-07] MEDS: EMPAGLIFLOZIN 25 MG TABLET PO (13:50)
[2023-08-07] MEDS: PANTOPRAZOLE 40 MG TABLET PO (13:50)
[2023-08-07] MEDS: INSULIN GLARGINE (*BKC) 100 UNITS/ML 12 UNITS SUB-Q (13:51)
[2023-08-07] MEDS: NICOTINE (*PBKC) 21 MG PATCH 1 PATCH TRANSDERM (13:51)
[2023-08-07 16:17] LABS: Glucose Point of Care 224 mg/dl (65-105)
[2023-08-07] MEDS: INSULIN ASPART (*BKC) 100 UNITS/ML SUB-Q ×3 (16:37→20:33)
[2023-08-07] MEDS: OPTI-GEN TAB 1 TABLET PO (17:08)
[2023-08-07] MEDS: FUROSEMIDE 40 MG TABLET PO (17:08)
[2023-08-07] MEDS: lisinopriL 20 MG TABLET PO (17:08)
[2023-08-07] MEDS: metFORMIN HCL 500 MG TABLET PO (17:08)
[2023-08-07] MEDS: ATORVASTATIN 40 MG TABLET PO (20:37)
[2023-08-07 20:41] LABS: Glucose Point of Care 207 mg/dl (65-105)
[2023-08-08] VITALS (22 sets, daily range): BP systolic 107–110; BP diastolic 50–81; PULSE 71–88; RESP 17–20; TEMP 36.3–36.7; O2SAT 90–96
--- NOTE | 2023-08-08 | ECHO_ITS ---
Patient Info Name: Sean Cueto Age: 57 years : 1965 Gender: Male Ht: 68 in Wt: 233 lbs BSA: 2.29 m2 HR: 78 bpm BP: 107 / 50 mmHg Heart Rhythm: Sinus Rhythm Technical Quality: Fair Exam Date: 08/08/2023 9:07 AM Exam Location: Echo Lab Patient Status: Inpatient Admit Date: 08/07/2023 Staff Ordering Physician: Collin Lewis MD [employer] Hand: Juanita Sun RDCS Attending Provider: Henna Byrne DO Exam Type: CA echo dop color flow w con Study Info Indications - elevated troponin Complete two-dimensional, color flow and Doppler transthoracic echocardiogram is performed with contrast to opacify the left ventricle and to improve the deliniation of the left ventricle endocardial borders. Contrast/Agitated Saline Contrast/Ag. Saline: Definity Amount: 2.00 ml Administered By: Juanita Sun RDCS Existing IV Access: Yes IV Access Condition: patent with no signs of infiltration Summary 1. Definity contrast administered improved wall motion interpretation. 2. Left ventricular chamber dimension is normal. 3. Basal to mid anterior wall is hypokinetic. 4. Left ventricular systolic function is normal, estimated at 55-60%. 5. There is mild concentric increased left ventricular wall thickness. 6. The left ventricular diastolic function is grade I diastolic dysfunction. 7. E/e' 14 is mildly elevated. 8. Left atrial chamber dimension is moderately enlarged. 9. There is severe aortic valve sclerosis. 10. There is moderate aortic valve stenosis with valve area of 1.1 cm2, mean gradient of 28 mmHg, and peak velocity of 3.4 m/s. 11. There is trace aortic valve regurgitation. 12. No pulmonary hypertension, estimated pulmonary arterial systolic pressure is 22 mmHg. Left Ventricle Definity contrast administered improved wall motion interpretation. E/e' 14 is mildly elevated. Basal to mid anterior wall is hypokinetic. Left ventricular chamber dimension is normal. Left ventricular systolic function is normal, estimated at 55-60%. There is mild concentric increased left ventricular wall thickness. The left ventricular diastolic function is grade I diastolic dysfunction. Right Ventricle Right ventricular systolic function is normal and with normal TAPSE 2.4 cm. Right ventricular chamber dimension is normal. Left Atria Left atrial chamber dimension is moderately enlarged. Right Atria Right atrial chamber dimension is normal. Aortic Valve The aortic valve is trileaflet. There is severe aortic valve sclerosis. There is moderate aortic valve stenosis with valve area of 1.1 cm2, mean gradient of 28 mmHg, and peak velocity of 3.4 m/s. There is trace aortic valve regurgitation. Pulmonic Valve There is no pulmonic regurgitation. Mitral Valve There is no mitral valve stenosis. There is no mitral valve regurgitation. Tricuspid Valve No pulmonary hypertension, estimated pulmonary arterial systolic pressure is 22 mmHg. There is no tricuspid valve regurgitation. Pericardium/Pleural There is no pericardial effusion. Inferior Vena Cava Normal inferior vena cava with >50% collapse upon inspiration consistent with normal right atrial pressure, 5 mmHg. Aorta The aortic root size at the sinus of Valsalva is normal. Tricuspid Valve Name Value Normal Estimated PAP/RSVP
[2023-08-08] MEDS: IPRATROPIUM 0.5 MG/ALBUTEROL SULFATE 2.5 MG AMPUL.NEB 3 ML INHALATION ×4 (03:18→20:57)
[2023-08-08 05:02] LABS: Basophils Absolute Auto 0.1 K/mm3 (0.0-0.1); Basophils Percent Auto 0.3 % (0.2-1.2); Eosinophils Absolute Auto 0.1 K/mm3 (0-0.3); Eosinophils Percent Auto 0.4 % (0-4.4); Hemoglobin 13.7 g/dL (14.0-18.0); Immature Granulocyte Absolute 0.59 K/mm3 (0.00-0.031); Immature Granulocyte Percent A 2.8 % (0-0.5); Lymphocytes Absolute Auto 1.04 K/mm3 (0.9-3.2); Lymphocytes Percent Auto 4.9 % (18.3-44.2); Mean Corpuscular HGB Conc 32.6 g/dl (32-36); Mean Corpuscular Hemoglobin 29.2 pg (26-34); Mean Corpuscular Volume 89.6 fl (80-100); Mean Platelet Volume 9.6 fl (7.4-10.4); Monocytes Absolute Auto 0.8 K/mm3 (0.1-0.6); Monocytes Percent Auto 3.6 % (2.6-8.5); Neutrophils Absolute Auto 18.9 K/mm3 (1.3-6.7); Platelet Count Result 357 k/mm3 (150-375); Red Blood Count 4.69 M/mm3 (4.6-6.20); Red Cell Distribution Width 14.2 % (11.5-14.5); White Blood Count 21.4 K/mm3 (4.5-10.0)
[2023-08-08 05:27] LABS: Alanine Aminotransferase 94 U/L (6-50); Albumin Level 3.5 g/dL (3.5-5.1); Alkaline Phosphatase 81 U/L (38-126); Anion Gap 9 mmol/L (4-12); Aspartate Amino Transferase 71 U/L (17-59); Bilirubin,Total 0.4 mg/dL (0.2-1.3); Blood Urea Nitrogen 47 mg/dL (9-20); Calcium 8.8 mg/dL (8.4-10.2); Carbon Dioxide 28 mmol/L (22-30); Chloride 95 mmol/L (98-107); Estimated CRCL calculation 53 ml/min; Estimated Glomerular Filt Rate 44; Glucose 260 mg/dL (65-110); Magnesium 2.4 mg/dL (1.6-2.3); Potassium 2.8 mmol/L (3.4-5.0); Sodium 132 mmol/L (137-145)
[2023-08-08] MEDS: methylPREDNISolone SOD SUCC 125 MG VIAL 60 MG IV PUSH (05:36)
[2023-08-08] MEDS: levoFLOXacin 750 MG/D5W 150 ML 750 MG/150 ML BAG 100 MG IVPB (05:36)
[2023-08-08] MEDS: POTASSIUM CHLORIDE 20 MEQ ER TABLET 40 MEQ PO (05:53)
[2023-08-08] MEDS: POTASSIUM CHLORIDE INJ 40 MEQ in SODIUM CHLORIDE 0.9% IV 500 ML 130 MEQ IVPB (05:53)
[2023-08-08 08:19] LABS: Glucose Point of Care 262 mg/dl (65-105)
[2023-08-08] MEDS: ENOXAPARIN 40 MG/0.4 ML SYRINGE SUB-Q (08:29)
[2023-08-08] MEDS: CYANOCOBALAMIN 1,000 MCG TABLET 1000 MCG PO (08:29)
[2023-08-08] MEDS: NICOTINE (*PBKC) 21 MG PATCH 1 PATCH TRANSDERM (08:29)
[2023-08-08] MEDS: ASPIRIN 81 MG ENTERIC TABLET PO (08:30)
[2023-08-08] MEDS: CHOLECALCIFEROL 1,000 UNITS TABLET 5000 UNITS PO (08:30)
[2023-08-08] MEDS: PANTOPRAZOLE 40 MG TABLET PO (08:30)
[2023-08-08] MEDS: EMPAGLIFLOZIN 25 MG TABLET PO (08:31)
[2023-08-08] MEDS: dilTIAZem HCL CD 240 MG CAP.24HR PO (08:31)
[2023-08-08] MEDS: METOPROLOL SUCCINATE EXT REL 100 MG TABCR PO (08:31)
[2023-08-08] MEDS: INSULIN GLARGINE (*BKC) 100 UNITS/ML 12 UNITS SUB-Q (08:32)
[2023-08-08] MEDS: INSULIN ASPART (*BKC) 100 UNITS/ML SUB-Q ×7 (08:33→20:28)
[2023-08-08] MEDS: OPTI-GEN TAB 1 TABLET PO ×2 (08:35→16:26)
[2023-08-08] MEDS: FLUTICASONE PROPIONATE 0.05% NA SPR 16 GM BTL (*BKC) 1 SPRAY NASAL (08:43)
[2023-08-08] MEDS: PERFLUTREN LIPID MICROSPHERES 1.5 ML VIAL DILUTED TO 10 ML TOTAL VOLUME IV PUSH (09:39)
--- NOTE | 2023-08-08 10:11 | IVDEFINITY ---
Prior to administration of IV Definity the patient was educated on the risks and benefits of the imaging enhancing agent including potential adverse side effects. The patient verbalized understanding. Allergies were verified. No exclusion criteria were identified and at least one of the following inclusion criteria were met: 1) physician request, 2) patient technically difficult to image (per the [place] [employer] guidelines of two or more segments not discernable within the apical view), or 3) questionable left ventricular function. ?
[2023-08-08 11:58] LABS: Glucose Point of Care 273 mg/dl (65-105)
--- NOTE | 2023-08-08 12:34 | PM.IMPN ---
Progress Note: A&P Assessment and Plan (1) Acute hypoxemic respiratory failure: Code(s): J96.01 - Acute respiratory failure with hypoxia Status: Acute (2) Pneumonia: Code(s): J18.9 - Pneumonia, unspecified organism Status: Acute (3) Type 2 diabetes mellitus with diabetic peripheral angiopathy and gangrene, with long-term current use of insulin: Code(s): E11.52 - Type 2 diabetes mellitus with diabetic peripheral angiopathy with gangrene; Z79.4 - halfway (current) use of insulin Status: Acute (4) Tobacco use: Code(s): Z72.0 - Tobacco use Status: Acute (5) WHITNEY (obstructive sleep apnea): Code(s): G47.33 - Obstructive sleep apnea (adult) (pediatric) Status: Acute (6) Essential (primary) hypertension: Code(s): I10 - Essential (primary) hypertension Status: Acute (7) Asthma-COPD overlap syndrome: Code(s): J44.9 - Chronic obstructive pulmonary disease, unspecified Status: Acute Plan 57-year-old man presented with shortness of breath and cough ongoing since past 4 5 days. He was in Urgent Care recently was diagnosed with bronchitis. He has low-grade fever. Upon arrival to the ED last night his oxygen saturation was low and needed oxygen supplementation. That tree workup revealed WBC count of 23,000 lactic acid was normal COVID flu RSV were negative. Chest x-ray showed developing bilateral lower lobes. Blood culture were obtained and was started on antibiotics. Patient had erythromycin allergy/side effect with GI upset and was given levofloxacin. COPD exacerbation on Solu Medrol wheezing is improved will switch to oral prednisone Acute hypoxic respiratory failure needing oxygen supplementation wean oxygen as tolerated Elevated troponin mild flat trend likely due to underlying pneumonia and hypoxia CKD stage 3 slight increase in creatinine today. Will hold his Lasix lisinopril triamterene hydrochlorothiazide today. Recheck in a.m. Hypokalemia: Replace and monitor Hypertension Aortic stenosis echo 07/24 with mild aortic valve stenosis grade 1 diastolic dysfunction the EF 60-65% Asthma/COPD Chronic back pain CKD nephrotic syndrome Hyperlipidemia Hypertension DVT prophylaxis Lovenox Code status full code Subjective Date/time seen: 08/08/23 12:34 Interval history: No overnight events. Feeling better. Cough is less productive. Oxygen requirement is down to 2 liter/minute Review of Systems Review of Systems: All systems reviewed & are unremarkable except as noted in HPI and below Exam Narrative: GENERAL: Well-appearing, well-nourished, and in no acute distress. HEAD: Normocephalic, atraumatic. EYES: PERRLA and EOMI. ENT: Nares clear, no rhinorrhea or epistaxis.? Mucous membranes moist. NECK: Supple. CHEST: Diminished breath sounds bilaterally no wheezes HEART: Regular rate and rhythm.? No murmur heard.? Normal peripheral pulses. ABDOMEN: Soft, nontender, nondistended, normal active bowel sounds. EXTREMITIES: Normal range of motion.? No edema. SKIN: Warm, dry, no rash. NEURO: No focal deficits.? Alert and oriented x3. PSYCH: Normal mood and affect. Objective Data Vital Signs Vital Signs: Vital Signs - 24 hr 08/07/23 13:21 08/07/23 13:22 08/07/23 13:31 Temperature Pulse Rate 95 95 92 Respiratory Rate 18 20 20 Blood Pressure Pulse Oximetry 94 Oxygen Delivery Nasal Cannula Oxygen Flow Rate 3 08/07/23 16:20 08/07/23 14:00 08/07/23 18:01 Temperature 98.2 F 98.2 F Pulse Rate 96 90 Respiratory Rate 20 18 Blood Pressure 118/72 120/57 L Pulse Oximetry 94 93 92 Oxygen Delivery Nasal Cannula Oxygen Flow Rate 2 08/07/23 16:00 08/07/23 20:10 08/07/23 20:12 Temperature Pulse Rate 94 90 Respiratory Rate 20 Blood Pressure Pulse Oximetry 94 Oxygen Delivery Nasal Cannula Oxygen Flow Rate 2 08/07/23 20:22 08/07/23 20:27 08/07/23 20:00 Temperature 97.2 F L Pulse Rate 92
[2023-08-08 13:27] LABS: Anion Gap 5 mmol/L (4-12); Blood Urea Nitrogen 53 mg/dL (9-20); Calcium 8.8 mg/dL (8.4-10.2); Carbon Dioxide 27 mmol/L (22-30); Chloride 99 mmol/L (98-107); Estimated CRCL calculation 60 ml/min; Estimated Glomerular Filt Rate 52; Glucose 260 mg/dL (65-110); Magnesium 2.4 mg/dL (1.6-2.3); Potassium 3.7 mmol/L (3.4-5.0); Sodium 131 mmol/L (137-145)
[2023-08-08] MEDS: predniSONE 20 MG TABLET 40 MG PO (16:25)
[2023-08-08 17:09] LABS: Glucose Point of Care 205 mg/dl (65-105)
[2023-08-08 20:19] LABS: Glucose Point of Care 252 mg/dl (65-105)
[2023-08-08] MEDS: ATORVASTATIN 40 MG TABLET PO (20:26)
[2023-08-08] MEDS: CYCLOBENZAPRINE HCL 10 MG TABLET PO (23:31)
[2023-08-09] VITALS (22 sets, daily range): BP systolic 122–132; BP diastolic 52–60; PULSE 61–78; RESP 16–26; TEMP 35.9–36.5; O2SAT 93–94
[2023-08-09] MEDS: IPRATROPIUM 0.5 MG/ALBUTEROL SULFATE 2.5 MG AMPUL.NEB 3 ML INHALATION ×4 (02:22→20:48)
[2023-08-09 05:34] LABS: Basophils Absolute Auto 0.2 K/mm3 (0.0-0.1); Basophils Percent Auto 0.5 % (0.2-1.2); Hemoglobin 13.6 g/dL (14.0-18.0); Immature Granulocyte Absolute 1.48 K/mm3 (0.00-0.031); Immature Granulocyte Percent A 5.3 % (0-0.5); Lymphocytes Absolute Auto 1.77 K/mm3 (0.9-3.2); Lymphocytes Percent Auto 6.3 % (18.3-44.2); Mean Corpuscular HGB Conc 31.6 g/dl (32-36); Mean Corpuscular Hemoglobin 28.8 pg (26-34); Mean Corpuscular Volume 90.9 fl (80-100); Mean Platelet Volume 9.6 fl (7.4-10.4); Monocytes Absolute Auto 1.4 K/mm3 (0.1-0.6); Monocytes Percent Auto 4.8 % (2.6-8.5); Neutrophils Absolute Auto 23.4 K/mm3 (1.3-6.7); Neutrophils Percent Auto 83.1 % (45.5-73.1); Nucleated Red Blood Cells Perc 0.1 % (0.0-0.2); Platelet Count Result 419 k/mm3 (150-375); Red Blood Count 4.73 M/mm3 (4.6-6.20); Red Cell Distribution Width 14.3 % (11.5-14.5); White Blood Count 28.2 K/mm3 (4.5-10.0)
[2023-08-09] MEDS: levoFLOXacin 750 MG/D5W 150 ML 750 MG/150 ML BAG 100 MG IVPB (05:35)
[2023-08-09 05:48] LABS: Alanine Aminotransferase 115 U/L (6-50); Albumin Level 3.3 g/dL (3.5-5.1); Alkaline Phosphatase 72 U/L (38-126); Anion Gap 5 mmol/L (4-12); Aspartate Amino Transferase 66 U/L (17-59); Bilirubin,Total 0.4 mg/dL (0.2-1.3); Blood Urea Nitrogen 60 mg/dL (9-20); Carbon Dioxide 28 mmol/L (22-30); Chloride 99 mmol/L (98-107); Estimated CRCL calculation 56 ml/min; Estimated Glomerular Filt Rate 48; Glucose 210 mg/dL (65-110); Magnesium 2.6 mg/dL (1.6-2.3); Potassium 3.5 mmol/L (3.4-5.0); Sodium 132 mmol/L (137-145)
[2023-08-09] MEDS: FLUTICASONE PROPIONATE 0.05% NA SPR 16 GM BTL (*BKC) 1 SPRAY NASAL (08:28)
[2023-08-09] MEDS: NICOTINE (*PBKC) 21 MG PATCH 1 PATCH TRANSDERM (08:29)
[2023-08-09] MEDS: CHOLECALCIFEROL 1,000 UNITS TABLET 5000 UNITS PO (08:29)
[2023-08-09] MEDS: ASPIRIN 81 MG ENTERIC TABLET PO (08:30)
[2023-08-09] MEDS: OPTI-GEN TAB 1 TABLET PO ×2 (08:30→16:39)
[2023-08-09] MEDS: CYANOCOBALAMIN 1,000 MCG TABLET 1000 MCG PO (08:31)
[2023-08-09] MEDS: predniSONE 20 MG TABLET 40 MG PO (08:31)
[2023-08-09] MEDS: PANTOPRAZOLE 40 MG TABLET PO (08:31)
[2023-08-09] MEDS: METOPROLOL SUCCINATE EXT REL 100 MG TABCR PO (08:31)
[2023-08-09] MEDS: EMPAGLIFLOZIN 25 MG TABLET PO (08:31)
[2023-08-09] MEDS: dilTIAZem HCL CD 240 MG CAP.24HR PO (08:31)
[2023-08-09] MEDS: ENOXAPARIN 40 MG/0.4 ML SYRINGE SUB-Q (08:32)
[2023-08-09] MEDS: INSULIN GLARGINE (*BKC) 100 UNITS/ML 12 UNITS SUB-Q (08:39)
[2023-08-09] MEDS: INSULIN ASPART (*BKC) 100 UNITS/ML SUB-Q ×5 (08:40→21:04)
[2023-08-09 08:41] LABS: Glucose Point of Care 176 mg/dl (65-105)
[2023-08-09 12:19] LABS: Glucose Point of Care 251 mg/dl (65-105)
--- NOTE | 2023-08-09 14:48 | PM.IMPN ---
Progress Note: A&P Assessment and Plan (1) Acute hypoxemic respiratory failure: Code(s): J96.01 - Acute respiratory failure with hypoxia Status: Acute (2) Pneumonia: Code(s): J18.9 - Pneumonia, unspecified organism Status: Acute (3) Type 2 diabetes mellitus with diabetic peripheral angiopathy and gangrene, with long-term current use of insulin: Code(s): E11.52 - Type 2 diabetes mellitus with diabetic peripheral angiopathy with gangrene; Z79.4 - long-term (current) use of insulin Status: Acute (4) Tobacco use: Code(s): Z72.0 - Tobacco use Status: Acute (5) WHITNEY (obstructive sleep apnea): Code(s): G47.33 - Obstructive sleep apnea (adult) (pediatric) Status: Acute (6) Essential (primary) hypertension: Code(s): I10 - Essential (primary) hypertension Status: Acute (7) Asthma-COPD overlap syndrome: Code(s): J44.9 - Chronic obstructive pulmonary disease, unspecified Status: Acute Plan 57-year-old man presented with shortness of breath and cough ongoing since past 4 5 days. He was in Urgent Care recently was diagnosed with bronchitis. He has low-grade fever. Upon arrival to the ED last night his oxygen saturation was low and needed oxygen supplementation. That tree workup revealed WBC count of 23,000 lactic acid was normal COVID flu RSV were negative. Chest x-ray showed developing bilateral lower lobes. Blood culture were obtained and was started on antibiotics. Patient had erythromycin allergy/side effect with GI upset and was given levofloxacin. COPD exacerbation on Solu Medrol wheezing is improved will switch to oral prednisone will taper off of prednisone. Acute hypoxic respiratory failure needing oxygen supplementation wean oxygen as tolerated. On room air today. Elevated troponin mild flat trend likely due to underlying pneumonia and hypoxia CKD stage 3 slight increase in creatinine today. Will hold his Lasix lisinopril triamterene hydrochlorothiazide today. Recheck creatinine stable Leukocytosis worsened today could be from steroid. Will recheck in a.m.. Taper off steroid and was not much wheezy Hypokalemia: Replace and monitor Hypertension Aortic stenosis echo 07/24 with mild aortic valve stenosis grade 1 diastolic dysfunction the EF 60-65% repeat echo with moderate aortic valve stenosis. Continue to follow-up with cardiology Asthma/COPD Chronic back pain CKD nephrotic syndrome Hyperlipidemia Hypertension DVT prophylaxis Lovenox Code status full code Subjective Date/time seen: 08/09/23 14:48 Interval history: No overnight events. Feeling better. Off oxygen. Cough is less productive. Labs reviewed Review of Systems Review of Systems: All systems reviewed & are unremarkable except as noted in HPI and below Exam Narrative: GENERAL: Well-appearing, well-nourished, and in no acute distress. HEAD: Normocephalic, atraumatic. EYES: PERRLA and EOMI. ENT: Nares clear, no rhinorrhea or epistaxis.? Mucous membranes moist. NECK: Supple. CHEST: Diminished breath sounds bilaterally no wheezes HEART: Regular rate and rhythm.? No murmur heard.? Normal peripheral pulses. ABDOMEN: Soft, nontender, nondistended, normal active bowel sounds. EXTREMITIES: Normal range of motion.? No edema. SKIN: Warm, dry, no rash. NEURO: No focal deficits.? Alert and oriented x3. PSYCH: Normal mood and affect. Objective Data Vital Signs Vital Signs: Vital Signs - 24 hr 08/08/23 16:03 08/08/23 20:00 08/08/23 20:56 Temperature Pulse Rate 77 74 Respiratory Rate 18 Blood Pressure Pulse Oximetry 95 Oxygen Delivery Nasal Cannula Oxygen Flow Rate 1 08/08/23 21:08 08/08/23 22:00 08/08/23 20:00 Temperature 97.3 F L Pulse Rate 71 79 79 Respiratory Rate 18 18 Blood Pressure 110/81 Pulse Oximetry 96 Oxygen Delivery Oxygen Flow Rate 08/09/23 00:00 08/09/23 02:23 08/09/23 02:30 Temperature Pulse Rate
[2023-08-09 17:09] LABS: Glucose Point of Care 176 mg/dl (65-105)
[2023-08-09] MEDS: ATORVASTATIN 40 MG TABLET PO (21:07)
[2023-08-09] MEDS: MELATONIN 5 MG TABLET 10 MG PO (21:08)
[2023-08-09 21:11] LABS: Glucose Point of Care 262 mg/dl (65-105)
[2023-08-10] VITALS (17 sets, daily range): BP systolic 109–136; BP diastolic 50–54; PULSE 59–97; RESP 16–20; TEMP 35.9–36.8; O2SAT 95–97
[2023-08-10] MEDS: IPRATROPIUM 0.5 MG/ALBUTEROL SULFATE 2.5 MG AMPUL.NEB 3 ML INHALATION ×4 (02:07→20:12)
[2023-08-10 05:28] LABS: Basophils Absolute Auto 0.1 K/mm3 (0.0-0.1); Basophils Percent Auto 0.6 % (0.2-1.2); Eosinophils Absolute Auto 0.1 K/mm3 (0-0.3); Eosinophils Percent Auto 0.3 % (0-4.4); Hemoglobin 13.5 g/dL (14.0-18.0); Immature Granulocyte Absolute 1.98 K/mm3 (0.00-0.031); Immature Granulocyte Percent A 8.4 % (0-0.5); Lymphocytes Absolute Auto 2.48 K/mm3 (0.9-3.2); Lymphocytes Percent Auto 10.5 % (18.3-44.2); Mean Corpuscular HGB Conc 32.1 g/dl (32-36); Mean Corpuscular Hemoglobin 29.1 pg (26-34); Mean Corpuscular Volume 90.5 fl (80-100); Mean Platelet Volume 9.5 fl (7.4-10.4); Monocytes Absolute Auto 1.2 K/mm3 (0.1-0.6); Monocytes Percent Auto 5.1 % (2.6-8.5); Neutrophils Absolute Auto 17.7 K/mm3 (1.3-6.7); Neutrophils Percent Auto 75.1 % (45.5-73.1); Platelet Count Result 388 k/mm3 (150-375); Red Blood Count 4.64 M/mm3 (4.6-6.20); Red Cell Distribution Width 14.5 % (11.5-14.5); White Blood Count 23.6 K/mm3 (4.5-10.0)
[2023-08-10 05:43] LABS: Alanine Aminotransferase 83 U/L (6-50); Albumin Level 3.1 g/dL (3.5-5.1); Alkaline Phosphatase 62 U/L (38-126); Anion Gap 0 mmol/L (4-12); Aspartate Amino Transferase 33 U/L (17-59); Bilirubin,Total 0.3 mg/dL (0.2-1.3); Blood Urea Nitrogen 53 mg/dL (9-20); Calcium 8.7 mg/dL (8.4-10.2); Carbon Dioxide 32 mmol/L (22-30); Chloride 100 mmol/L (98-107); Estimated CRCL calculation 65 ml/min; Estimated Glomerular Filt Rate 57; Glucose 134 mg/dL (65-110); Magnesium 2.5 mg/dL (1.6-2.3); Potassium 3.7 mmol/L (3.4-5.0); Sodium 132 mmol/L (137-145)
[2023-08-10] MEDS: levoFLOXacin 750 MG/D5W 150 ML 750 MG/150 ML BAG 100 MG IVPB (05:58)
[2023-08-10 08:23] LABS: Glucose Point of Care 122 mg/dl (65-105)
[2023-08-10] MEDS: dilTIAZem HCL CD 240 MG CAP.24HR PO (08:42)
[2023-08-10] MEDS: ENOXAPARIN 40 MG/0.4 ML SYRINGE SUB-Q (08:42)
[2023-08-10] MEDS: CYANOCOBALAMIN 1,000 MCG TABLET 1000 MCG PO (08:42)
[2023-08-10] MEDS: OPTI-GEN TAB 1 TABLET PO ×2 (08:43→17:54)
[2023-08-10] MEDS: EMPAGLIFLOZIN 25 MG TABLET PO (08:43)
[2023-08-10] MEDS: FLUTICASONE PROPIONATE 0.05% NA SPR 16 GM BTL (*BKC) 1 SPRAY NASAL (08:43)
[2023-08-10] MEDS: METOPROLOL SUCCINATE EXT REL 100 MG TABCR PO (08:43)
[2023-08-10] MEDS: PANTOPRAZOLE 40 MG TABLET PO (08:43)
[2023-08-10] MEDS: ASPIRIN 81 MG ENTERIC TABLET PO (08:43)
[2023-08-10] MEDS: NICOTINE (*PBKC) 21 MG PATCH 1 PATCH TRANSDERM (08:44)
[2023-08-10] MEDS: CHOLECALCIFEROL 1,000 UNITS TABLET 5000 UNITS PO (08:44)
[2023-08-10] MEDS: INSULIN GLARGINE (*BKC) 100 UNITS/ML 12 UNITS SUB-Q (08:48)
--- NOTE | 2023-08-10 11:04 | PM.IMPN ---
Progress Note: A&P Assessment and Plan (1) Acute hypoxemic respiratory failure: Code(s): J96.01 - Acute respiratory failure with hypoxia Status: Acute (2) Pneumonia: Code(s): J18.9 - Pneumonia, unspecified organism Status: Acute (3) Type 2 diabetes mellitus with diabetic peripheral angiopathy and gangrene, with long-term current use of insulin: Code(s): E11.52 - Type 2 diabetes mellitus with diabetic peripheral angiopathy with gangrene; Z79.4 - MCFP (current) use of insulin Status: Acute (4) Tobacco use: Code(s): Z72.0 - Tobacco use Status: Acute (5) WHITNEY (obstructive sleep apnea): Code(s): G47.33 - Obstructive sleep apnea (adult) (pediatric) Status: Acute (6) Essential (primary) hypertension: Code(s): I10 - Essential (primary) hypertension Status: Acute (7) Asthma-COPD overlap syndrome: Code(s): J44.9 - Chronic obstructive pulmonary disease, unspecified Status: Acute Plan 57-year-old man presented with shortness of breath and cough ongoing since past 4 5 days. He was in Urgent Care recently was diagnosed with bronchitis. He has low-grade fever. Upon arrival to the ED last night his oxygen saturation was low and needed oxygen supplementation. acute respiratory failure with hypoxemia, multifocal pneumonia That tree workup revealed WBC count of 23,000 lactic acid was normal COVID flu RSV were negative. Chest x-ray showed developing bilateral lower lobes pneumonia. Blood culture were obtained and was started on antibiotics. Patient had erythromycin allergy/side effect with GI upset and was given levofloxacin. leukocytosis improving now on room air continue Levaquin IV today, will switch to Levaquin or tomorrow COPD exacerbation on Solu Medrol wheezing is improved will switch to oral prednisone will taper off of prednisone. Acute hypoxic respiratory failure needing oxygen supplementation wean oxygen as tolerated. On room air today. Elevated troponin mild flat trend likely due to underlying pneumonia and hypoxia CKD stage 3 slight increase in creatinine today. Will hold his Lasix lisinopril triamterene hydrochlorothiazide today. Recheck creatinine stable Leukocytosis worsened today could be from steroid. Will recheck in a.m.. Taper off steroid and was not much wheezy Hypokalemia: Replace and monitor Hypertension Aortic stenosis echo 07/24 with mild aortic valve stenosis grade 1 diastolic dysfunction the EF 60-65% repeat echo with moderate aortic valve stenosis. Continue to follow-up with cardiology Asthma/COPD Chronic back pain CKD nephrotic syndrome Hyperlipidemia Hypertension DVT prophylaxis Lovenox Code status full code Subjective Date/time seen: 08/10/23 11:04 Interval history: to I saw exam patient today, patient feels better, still has a cough denies shortness breath at rest Exam Narrative: GENERAL: Well-appearing, well-nourished, and in no acute distress. HEAD: Normocephalic, atraumatic. EYES: PERRLA and EOMI. ENT: Nares clear, no rhinorrhea or epistaxis.? Mucous membranes moist. NECK: Supple. CHEST: Diminished breath sounds bilaterally no wheezes HEART: Regular rate and rhythm.? No murmur heard.? Normal peripheral pulses. ABDOMEN: Soft, nontender, nondistended, normal active bowel sounds. EXTREMITIES: Normal range of motion.? No edema. SKIN: Warm, dry, no rash. NEURO: No focal deficits.? Alert and oriented x3. PSYCH: Normal mood and affect. Objective Data Vital Signs Vital Signs: Vital Signs - 24 hr 08/09/23 12:01 08/09/23 13:55 08/09/23 14:10 Temperature 97.7 F Pulse Rate 69 71 67 Respiratory Rate 16 18 Blood Pressure 122/52 L Pulse Oximetry 94 Oxygen Delivery 08/09/23 14:20 08/09/23 16:00 08/09/23 19:00 Temperature 96.7 F L Pulse Rate 70 68 65 Respiratory Rate 18 22 H Blood Pressure 132/56 L Pulse Oximetry 94 Oxygen Delivery 08/09/23 20:25
[2023-08-10 11:52] LABS: Glucose Point of Care 195 mg/dl (65-105)
[2023-08-10] MEDS: INSULIN ASPART (*BKC) 100 UNITS/ML SUB-Q ×2 (12:39→17:51)
[2023-08-10 17:06] LABS: Glucose Point of Care 189 mg/dl (65-105)
[2023-08-10 19:57] LABS: Glucose Point of Care 190 mg/dl (65-105)
[2023-08-10] MEDS: MELATONIN 5 MG TABLET 10 MG PO (20:34)
[2023-08-10] MEDS: ATORVASTATIN 40 MG TABLET PO (20:35)
[2023-08-10] MEDS: diphenhydrAMINE HCl CAP 25 MG CAPSULE PO (20:40)
[2023-08-11] VITALS (7 sets, daily range): BP systolic 137; BP diastolic 54; PULSE 64–80; RESP 16–18; TEMP 35.9; O2SAT 96
[2023-08-11] MEDS: CYCLOBENZAPRINE HCL 10 MG TABLET PO (00:46)
[2023-08-11] MEDS: IPRATROPIUM 0.5 MG/ALBUTEROL SULFATE 2.5 MG AMPUL.NEB 3 ML INHALATION ×2 (02:19→07:58)
[2023-08-11] MEDS: levoFLOXacin 750 MG/D5W 150 ML 750 MG/150 ML BAG 100 MG IVPB (06:24)
[2023-08-11 08:23] LABS: Glucose Point of Care 120 mg/dl (65-105)
[2023-08-11] MEDS: ENOXAPARIN 40 MG/0.4 ML SYRINGE SUB-Q (08:25)
[2023-08-11] MEDS: CYANOCOBALAMIN 1,000 MCG TABLET 1000 MCG PO (08:25)
[2023-08-11] MEDS: dilTIAZem HCL CD 240 MG CAP.24HR PO (08:25)
[2023-08-11] MEDS: CHOLECALCIFEROL 1,000 UNITS TABLET 5000 UNITS PO (08:25)
[2023-08-11] MEDS: EMPAGLIFLOZIN 25 MG TABLET PO (08:25)
[2023-08-11] MEDS: ASPIRIN 81 MG ENTERIC TABLET PO (08:25)
[2023-08-11] MEDS: PANTOPRAZOLE 40 MG TABLET PO (08:26)
[2023-08-11] MEDS: OPTI-GEN TAB 1 TABLET PO (08:26)
[2023-08-11] MEDS: NICOTINE (*PBKC) 21 MG PATCH 1 PATCH TRANSDERM (08:26)
[2023-08-11] MEDS: METOPROLOL SUCCINATE EXT REL 100 MG TABCR PO (08:26)
[2023-08-11] MEDS: FLUTICASONE PROPIONATE 0.05% NA SPR 16 GM BTL (*BKC) 1 SPRAY NASAL (08:26)
[2023-08-11] MEDS: INSULIN GLARGINE (*BKC) 100 UNITS/ML 12 UNITS SUB-Q (08:41)
--- NOTE | 2023-08-11 08:41 | PM.IMPN ---
Progress Note: A&P Assessment and Plan (1) Acute hypoxemic respiratory failure: Code(s): J96.01 - Acute respiratory failure with hypoxia Status: Acute (2) Pneumonia: Code(s): J18.9 - Pneumonia, unspecified organism Status: Acute (3) Type 2 diabetes mellitus with diabetic peripheral angiopathy and gangrene, with long-term current use of insulin: Code(s): E11.52 - Type 2 diabetes mellitus with diabetic peripheral angiopathy with gangrene; Z79.4 - shelter (current) use of insulin Status: Acute (4) Tobacco use: Code(s): Z72.0 - Tobacco use Status: Acute (5) WHITNEY (obstructive sleep apnea): Code(s): G47.33 - Obstructive sleep apnea (adult) (pediatric) Status: Acute (6) Essential (primary) hypertension: Code(s): I10 - Essential (primary) hypertension Status: Acute (7) Asthma-COPD overlap syndrome: Code(s): J44.9 - Chronic obstructive pulmonary disease, unspecified Status: Acute Plan 57-year-old man presented with shortness of breath and cough ongoing since past 4 5 days. He was in Urgent Care recently was diagnosed with bronchitis. He has low-grade fever. Upon arrival to the ED last night his oxygen saturation was low and needed oxygen supplementation. acute respiratory failure with hypoxemia, multifocal pneumonia That tree workup revealed WBC count of 23,000 lactic acid was normal COVID flu RSV were negative. Chest x-ray showed developing bilateral lower lobes pneumonia. Blood culture were obtained and was started on antibiotics. Patient had erythromycin allergy/side effect with GI upset and was given levofloxacin. leukocytosis improving now on room air received Levaquin IV l switched to Levaquin today COPD exacerbation on Solu Medrol wheezing is improved will switch to oral prednisone will taper off of prednisone. Acute hypoxic respiratory failure needing oxygen supplementation wean oxygen as tolerated. On room air today. Elevated troponin mild flat trend likely due to underlying pneumonia and hypoxia CKD stage 3 slight increase in creatinine today. Will hold his Lasix lisinopril triamterene hydrochlorothiazide today. Recheck creatinine stable Leukocytosis worsened today could be from steroid. Will recheck in a.m.. Taper off steroid and was not much wheezy Hypokalemia: Replace and monitor Hypertension Aortic stenosis echo 07/24 with mild aortic valve stenosis grade 1 diastolic dysfunction the EF 60-65% repeat echo with moderate aortic valve stenosis. Continue to follow-up with cardiology Asthma/COPD Chronic back pain CKD nephrotic syndrome Hyperlipidemia Hypertension DVT prophylaxis Lovenox Code status full code Subjective Date/time seen: 08/11/23 08:41 Interval history: I saw exam patient today. patient feels better, still has a cough denies shortness breath at rest Exam Narrative: GENERAL: Well-appearing, well-nourished, and in no acute distress. HEAD: Normocephalic, atraumatic. EYES: PERRLA and EOMI. ENT: Nares clear, no rhinorrhea or epistaxis.? Mucous membranes moist. NECK: Supple. CHEST: Diminished breath sounds bilaterally no wheezes HEART: Regular rate and rhythm.? No murmur heard.? Normal peripheral pulses. ABDOMEN: Soft, nontender, nondistended, normal active bowel sounds. EXTREMITIES: Normal range of motion.? No edema. SKIN: Warm, dry, no rash. NEURO: No focal deficits.? Alert and oriented x3. PSYCH: Normal mood and affect. Objective Data Vital Signs Vital Signs: Vital Signs - 24 hr 08/10/23 08:43 08/10/23 13:20 08/10/23 13:29 Temperature Pulse Rate 73 65 70 Respiratory Rate 18 18 Blood Pressure Pulse Oximetry Oxygen Delivery 08/10/23 12:00 08/10/23 14:50 08/10/23 20:13 Temperature 98.2 F 97.3 F L Pulse Rate 69 70 67 Respiratory Rate 16 17 Blood Pressure 109/50 L 136/54 L Pulse Oximetry 95 97 Oxygen Delivery 08/10/23 20:12 08/10/23 20:14
[2023-08-11] MEDS: INSULIN ASPART (*BKC) 100 UNITS/ML SUB-Q (08:42)
--- NOTE | 2023-08-11 08:42 | PM.DS ---
DS: Admitting Diagnosis Discharge Date 08/11 Admitting Diagnosis (1) Acute hypoxemic respiratory failure: ?Code(s): J96.01 - Acute respiratory failure with hypoxia ?Status:?Acute (2) Pneumonia: ?Code(s): J18.9 - Pneumonia, unspecified organism ?Status:?Acute (3) Type 2 diabetes mellitus with diabetic peripheral angiopathy and gangrene, with long-term current use of insulin: ?Code(s): E11.52 - Type 2 diabetes mellitus with diabetic peripheral angiopathy with gangrene; Z79.4 - MCFP (current) use of insulin ?Status:?Acute (4) Tobacco use: ?Code(s): Z72.0 - Tobacco use ?Status:?Acute (5) WHITNEY (obstructive sleep apnea): ?Code(s): G47.33 - Obstructive sleep apnea (adult) (pediatric) ?Status:?Acute (6) Essential (primary) hypertension: ?Code(s): I10 - Essential (primary) hypertension ?Status:?Acute (7) Asthma-COPD overlap syndrome: ?Code(s): J44.9 - Chronic obstructive pulmonary disease, unspecified DS: Discharge Diagnosis Discharge Diagnosis (1) Acute hypoxemic respiratory failure: Code(s): J96.01 - Acute respiratory failure with hypoxia Status: Acute (2) Pneumonia: Code(s): J18.9 - Pneumonia, unspecified organism Status: Acute (3) Type 2 diabetes mellitus with diabetic peripheral angiopathy and gangrene, with long-term current use of insulin: Code(s): E11.52 - Type 2 diabetes mellitus with diabetic peripheral angiopathy with gangrene; Z79.4 - [employer] (current) use of insulin Status: Acute (4) Tobacco use: Code(s): Z72.0 - Tobacco use Status: Acute (5) WHITNEY (obstructive sleep apnea): Code(s): G47.33 - Obstructive sleep apnea (adult) (pediatric) Status: Acute (6) Essential (primary) hypertension: Code(s): I10 - Essential (primary) hypertension Status: Acute (7) Asthma-COPD overlap syndrome: Code(s): J44.9 - Chronic obstructive pulmonary disease, unspecified Status: Acute DS: Summary Hospital Course Hospital Course: 57-year-old man presented with shortness of breath and cough ongoing since past 4 5 days. He was in Urgent Care recently was diagnosed with bronchitis. He has low-grade fever. Upon arrival to the ED last night his oxygen saturation was low and needed oxygen supplementation. acute respiratory failure with hypoxemia, multifocal pneumonia That tree workup revealed WBC count of 23,000 lactic acid was normal COVID flu RSV were negative. Chest x-ray showed developing bilateral lower lobes pneumonia. Blood culture were obtained and was started on antibiotics. Patient had erythromycin allergy/side effect with GI upset and was given levofloxacin. leukocytosis improving now on room air received Levaquin IV l switched to Levaquin today COPD exacerbation on Solu Medrol wheezing is improved switched to oral prednisone and tapered off prednisone. Acute hypoxic respiratory failure needing oxygen supplementation wean oxygen as tolerated. On room air today. Elevated troponin mild flat trend likely due to underlying pneumonia and hypoxia CKD stage 3 slight increase in creatinine today. Will hold his Lasix lisinopril triamterene hydrochlorothiazide today. Recheck creatinine stable Leukocytosis worsened today could be from steroid. Hypokalemia: Replace and monitor Hypertension Aortic stenosis echo 07/24 with mild aortic valve stenosis grade 1 diastolic dysfunction the EF 60-65% repeat echo with moderate aortic valve stenosis. Continue to follow-up with cardiology Chronic back pain CKD nephrotic syndrome stable Time Spent with Patient Time attestation: Total time spent providing and/or coordinating discharge services: Exam Narrative: GENERAL: Well-appearing, well-nourished, and in no acute distress. HEAD: Normocephalic, atraumatic. EYES: PERRLA and EOMI. ENT: Nares clear, no rhinorrhea or epistaxis.? Mucous membranes mo
[2023-08-11 09:04] LABS: Hematocrit 43.6 % (42.0-52.0); Hemoglobin 13.8 g/dL (14.0-18.0); Mean Corpuscular HGB Conc 31.7 g/dl (32-36); Mean Corpuscular Hemoglobin 28.9 pg (26-34); Mean Corpuscular Volume 91.2 fl (80-100); Mean Platelet Volume 9.3 fl (7.4-10.4); Platelet Count Result 335 k/mm3 (150-375); Red Blood Count 4.78 M/mm3 (4.6-6.20); Red Cell Distribution Width 14.4 % (11.5-14.5); White Blood Count 22.9 K/mm3 (4.5-10.0)
[2023-08-11 09:16] LABS: Anion Gap 3 mmol/L (4-12); Blood Urea Nitrogen 35 mg/dL (9-20); Calcium 8.8 mg/dL (8.4-10.2); Carbon Dioxide 31 mmol/L (22-30); Chloride 101 mmol/L (98-107); Estimated CRCL calculation 70 ml/min; Estimated Glomerular Filt Rate > 60; Glucose 111 mg/dL (65-110); Potassium 3.9 mmol/L (3.4-5.0); Sodium 135 mmol/L (137-145)
== END 2023-08-11 11:28 | disposition home or self-care (01) | DRG 193 ==
LOC: ANHED 06:30 → ANH2MED 07:51
PROVIDERS: Internal Medicine; Admitting Provider Internal Medicine; Emergency Provider Emergency Medicine; PCP Family Medicine; Visit Provider Hospitalist
DX: J18.9 Pneumonia, unspecified organism (principal); J96.01 Acute respiratory failure with hypoxia; J44.0 Chronic obstructive pulmonary disease with (acute) lower respiratory infection; J44.1 Chronic obstructive pulmonary disease with (acute) exacerbation; I35.0 Nonrheumatic aortic (valve) stenosis; I65.29 Occlusion and stenosis of unspecified carotid artery; I12.9 Hypertensive chronic kidney disease with stage 1 through stage 4 chronic kidney disease, or unspecified chronic kidney disease; N18.30 Chronic kidney disease, stage 3 unspecified; K21.9 Gastro-esophageal reflux disease without esophagitis; E11.51 Type 2 diabetes mellitus with diabetic peripheral angiopathy without gangrene; E78.5 Hyperlipidemia, unspecified; E66.9 Obesity, unspecified; M54.42 Lumbago with sciatica, left side; M54.41 Lumbago with sciatica, right side; M47.816 Spondylosis without myelopathy or radiculopathy, lumbar region; M48.00 Spinal stenosis, site unspecified; M47.812 Spondylosis without myelopathy or radiculopathy, cervical region; R01.1 Cardiac murmur, unspecified; G47.33 Obstructive sleep apnea (adult) (pediatric); F17.210 Nicotine dependence, cigarettes, uncomplicated; Z20.822 Contact with and (suspected) exposure to COVID-19; Z86.010 Personal history of colon polyps; Z79.82 Long term (current) use of aspirin; Z79.4 Long term (current) use of insulin
CPT/HCPCS: 36415; 71045; 80048; 80053; 81001; 82948; 83036; 83605; 83735; 83880; 84145; 84484; 85025; 85027; 85610; 85730; 87040; 87070; 87086; 87205; 87426; 87637; 87804; 93005; 94640; 96365; 96375; 99213; 99285; A9270; C8929; G0378; G0463; J1650; J1815; J1956; J2919; J3480; J7040; J7512; Q9957

== ENCOUNTER 2023-09-12 09:42 | Outpatient (CLI) | payer OTHER, SELFPAY ==
--- NOTE | ~2023-09-12 | CT_ITS ---
CT Scan of the Chest without Contrast: Clinical Indication: Lung cancer screening, nicotine dependence Technique: Contiguous sections were acquired throughout the chest without intravenous contrast. Dose reduction technique was used on this scan by utilizing automated exposure control and iterative recon struction technique. The dose-length product (DLP) was 381.26 mGy-cm. COMPARISON: 09/08/2022 Findings: There is no evidence of any significant mediastinal, hilar or axillary lymphadenopathy. Coronary hoda ry calcifications are present. There is no evidence of pleural or pericardial effusion. Stable 11 mm apical pulmonary nodule, smoothly marginated. There are focal groundglass nodules at the right lung base, suggestive of focal small airways infectious process. Probable additional small ashlyn e-in-bud opacities at the anteromedial lingula. Images through the upper abdomen reveal no abnormalities. Impression: Lung RADS 2: Benign appearance. 12 month follow-up screening CT advised. Suspected focal small airways infectious process at the lingula and right lung base. Reviewed, dictated and finalized at [facility]. Impression: Lung RADS 2: Benign appearance. 12 month follow-up screening CT advised. Suspected focal small airways infectious process at the lingula and right lung base.
== END 2023-09-12 09:43 | disposition home or self-care (01) ==
PROVIDERS: PCP Family Medicine; Visit Provider Physician Assistant
DX: Z12.2 Encounter for screening for malignant neoplasm of respiratory organs (principal); Z87.891 Personal history of nicotine dependence
CPT/HCPCS: 71271

== ENCOUNTER 2023-10-05 13:48 | Emergency (ER) | payer OTHER, SELFPAY ==
[2023-10-05 13:59] VITALS: BP 142/58; PULSE 71; RESP 18; TEMP 36.3; O2SAT 97
--- NOTE | 2023-10-05 14:41 | ED.EAR ---
HPI - Ear Problem General Chief complaint: Ear Stated complaint: L ear pain, Swollen Lymph Node Time Seen by Provider: 10/05/23 14:30 Source: patient, RN notes reviewed and old records reviewed Mode of arrival: ambulatory Limitations: no limitations History of Present Illness HPI Narrative: 58 year old male who presents to [facility] care with complaint of left ear pain with some swelling to his lymph nodes on the left side. Patient reports history of ear problems with previous tubes and ear surgery in the past. Has been tobacco free for 2 month after having pneumonia in August 2023 prior heavy smoker for 47 years MD Complaint: ear pain and other (swollen gland left neck) Location: left ear Duration: constant Severity: moderate Discharge from ear: Reports no Treatment prior to arrival: other (nasal spray) Related Data Home Medications Medication Instructions Recorded Confirmed aspirin 81 mg tablet,delayed 81 mg PO DAILY 05/27/20 10/05/23 release cholecalciferol (vitamin D3) 125 5,000 unit PO DAILY 05/05/22 10/05/23 mcg (5,000 unit) capsule cyanocobalamin (vitamin B-12) 1,000 mcg PO DAILY 05/05/22 10/05/23 1,000 mcg tablet (Vitamin B-12) fluticasone propionate 50 50 mcg intranasal DAILY 01/12/23 10/05/23 mcg/actuation nasal spray,suspension dulaglutide 3 mg/0.5 mL 3 mg subcut WEEKLY 01/14/23 10/05/23 subcutaneous pen injector (Trulicity) insulin glargine U-300 conc 300 15 unit subcut DAILY 01/14/23 10/05/23 unit/mL (1.5 mL) subcutaneous pen (Julissa SolJoana U-300 Insulin) cyclobenzaprine 10 mg tablet 10 mg PO TID PRN muscle spasm 08/04/23 10/05/23 lisinopril 20 mg tablet 20 mg PO QPM 08/07/23 10/05/23 lisinopril 40 mg tablet 40 mg PO QAM 08/07/23 10/05/23 metformin 1,000 mg tablet 500 mg PO BID 08/07/23 10/05/23 vit C 250 mg-E 90 mg-zinc 40 1 tablet PO QAM AND QPM 08/07/23 10/05/23 mg-copper 1 ry-eiftfa-jobzsx chew tablet (PreserVision AREDS-2) Allergies Allergy/AdvReac Type Severity Reaction Status Date / Time erythromycin base AdvReac Intermediate Gastrointestinal Verified 10/05/23 14:35 Upset tetracycline AdvReac Intermediate Gastrointestinal Verified 10/05/23 14:35 Upset Penicillins AdvReac Mild Hives Verified 10/05/23 14:35 Review of Systems Review of Systems: CONSTITUTIONAL: Denies malaise, chills, sweats, or fever. EYES: Denies visual changes, redness, or discharge. ENT: Reports rhinorrhea, congestion, no sinus pain,left otalgia and no sore throat. CARDIOVASCULAR: Denies chest pain, palpitations, or edema. RESPIRATORY: Reports no acute cough.? Denies dyspnea. GASTROINTESTINAL: Denies abdominal pain, nausea, vomiting, diarrhea SKIN: Denies rash or itching. MUSCULOSKELETAL: Denies myalgia. NEUROLOGIC: Denies headache. All systems reviewed & are unremarkable except as noted in HPI and below PMFSH Past Medical History Medical History Abdominal pannus large abdominal pannus after 160 lb weight loss Acute non-recurrent maxillary sinusitis Anxiety Aortic stenosis Moderate aortic stenosis with trace aortic regurgitation and grade 1 diastolic dysfunction with ejection fraction 55-60% on echo 08/07/2023. Hypokinesis of the anterior left ventricle. Atypical chest pain Blister of left leg without infection BMI 36.0-36.9,adult BMI 37.0-37.9, adult Cardiac murmur Carotid stenosis Cellulitis Chronic bilateral low back pain with bilateral sciatica x-ray of the lumbar spine on 08/17/2022 reveals severe lumbar spondylosis. Chronic neck pain Moderate spondylosis on cervical spine x-ray in urgent care 11/27/2022. Chronic obstructive pulmonary disease Class 3 severe obesity due to excess calories with serious comorbidity and body mass index (BMI) greater than or equal to 70 in adult Colon cancer screening COVID-19 (~11/16/22) COVID-19 vaccine series completed Diabetes Dyslipidemia Dyslipidemia associated with ty
== END 2023-10-05 15:05 | disposition home or self-care (01) ==
PROVIDERS: Emergency Provider Registered Nurse; PCP Family Medicine
DX: H66.92 Otitis media, unspecified, left ear (principal); Z87.891 Personal history of nicotine dependence; I35.0 Nonrheumatic aortic (valve) stenosis; R01.1 Cardiac murmur, unspecified; J44.9 Chronic obstructive pulmonary disease, unspecified; E11.9 Type 2 diabetes mellitus without complications; I10 Essential (primary) hypertension; K21.9 Gastro-esophageal reflux disease without esophagitis; M51.36 Other intervertebral disc degeneration, lumbar region; E78.2 Mixed hyperlipidemia; E11.52 Type 2 diabetes mellitus with diabetic peripheral angiopathy with gangrene; I96 Gangrene, not elsewhere classified; Z79.4 Long term (current) use of insulin; Z79.84 Long term (current) use of oral hypoglycemic drugs; Z85.828 Personal history of other malignant neoplasm of skin; Z79.82 Long term (current) use of aspirin
CPT/HCPCS: 99213; G0463

== ENCOUNTER 2023-11-02 17:04 | Emergency (ER) | payer OTHER, SELFPAY ==
[2023-11-02 17:27] VITALS: BP 136/50; PULSE 64; RESP 16; TEMP 36.2; O2SAT 98
--- NOTE | 2023-11-02 17:56 | ED.DENTAL ---
HPI - Dental/Oral General Chief complaint: Dental/Oral Stated complaint: oral pain Time Seen by Provider: 11/02/23 17:47 Source: patient and RN notes reviewed Mode of arrival: ambulatory Limitations: no limitations History of Present Illness HPI Narrative: Patient presents today complaining of 10 day history of left lower posterior gum pain. States he talked to his dentist who told him she could not care for this area because there are no teeth any more. She referred him to an oral surgeon who told him they could see him at the beginning of December. He called his PCPs office who told him he could be seen in 5 days. He did not want to wait that long and they referred him to [facility]. Currently rates his pain 8/10, which increases with eating. He has been taking Tylenol and ibuprofen with some mild relief. Related Data Home Medications Medication Instructions Recorded Confirmed aspirin 81 mg tablet,delayed 81 mg PO DAILY 05/27/20 11/02/23 release cholecalciferol (vitamin D3) 125 5,000 unit PO DAILY 05/05/22 11/02/23 mcg (5,000 unit) capsule cyanocobalamin (vitamin B-12) 1,000 mcg PO DAILY 05/05/22 11/02/23 1,000 mcg tablet (Vitamin B-12) fluticasone propionate 50 50 mcg intranasal DAILY 01/12/23 11/02/23 mcg/actuation nasal spray,suspension dulaglutide 3 mg/0.5 mL 3 mg subcut WEEKLY 01/14/23 11/02/23 subcutaneous pen injector (Trulicity) insulin glargine U-300 conc 300 15 unit subcut DAILY 01/14/23 11/02/23 unit/mL (1.5 mL) subcutaneous pen (Julissa SolJoana U-300 Insulin) lisinopril 20 mg tablet 20 mg PO QPM 08/07/23 11/02/23 lisinopril 40 mg tablet 40 mg PO QAM 08/07/23 11/02/23 metformin 1,000 mg tablet 500 mg PO BID 08/07/23 11/02/23 vit C 250 mg-E 90 mg-zinc 40 1 tablet PO QAM AND QPM 08/07/23 11/02/23 mg-copper 1 up-aiwsev-eegmob chew tablet (PreserVision AREDS-2) Allergies Allergy/AdvReac Type Severity Reaction Status Date / Time erythromycin base AdvReac Intermediate Gastrointestinal Verified 11/02/23 17:20 Upset tetracycline AdvReac Intermediate Gastrointestinal Verified 11/02/23 17:20 Upset Penicillins AdvReac Mild Hives Verified 11/02/23 17:20 Review of Systems Review of Systems: CONSTITUTIONAL: Denies body aches, fever, chills, or sweats. EYES: Denies visual changes, redness, or discharge. ENT: Denies rhinorrhea, congestion, sore throat, or otalgia.+gum pain CARDIOVASCULAR: Denies chest pain, palpitations, or edema. RESPIRATORY: Denies cough or dyspnea. GASTROINTESTINAL: Denies abdominal pain, nausea, vomiting, or diarrhea. GENITOURINARY: Denies dysuria or hematuria. SKIN: Denies rash, itching, or wounds. MUSCULOSKELETAL: Denies back pain, joint pain, or myalgia. NEUROLOGIC: Denies headache, numbness, tingling, or weakness. PSYCH: Denies depression or anxiety. [facility] Past Medical History Medical History Abdominal pannus large abdominal pannus after 160 lb weight loss Acute non-recurrent maxillary sinusitis Anxiety Aortic stenosis Moderate aortic stenosis with trace aortic regurgitation and grade 1 diastolic dysfunction with ejection fraction 55-60% on echo 08/07/2023. Hypokinesis of the anterior left ventricle. Atypical chest pain Blister of left leg without infection BMI 36.0-36.9,adult BMI 37.0-37.9, adult Cardiac murmur Carotid stenosis Cellulitis Chronic bilateral low back pain with bilateral sciatica x-ray of the lumbar spine on 08/17/2022 reveals severe lumbar spondylosis. Chronic neck pain Moderate spondylosis on cervical spine x-ray in urgent care 11/27/2022. Chronic obstructive pulmonary disease Class 3 severe obesity due to excess calories with serious comorbidity and body mass index (BMI) greater than or equal to 70 in adult Colon cancer screening COVID-19 (~11/16/22) COVID-19 vaccine series completed Diabetes Dyslipidemia Dyslipidemia associated with type 2 diabetes mellitu
== END 2023-11-02 17:57 | disposition home or self-care (01) ==
PROVIDERS: Emergency Provider Nurse Practitioner; PCP Family Medicine
DX: K08.89 Other specified disorders of teeth and supporting structures (principal); Z87.891 Personal history of nicotine dependence; F12.90 Cannabis use, unspecified, uncomplicated; R01.1 Cardiac murmur, unspecified; J44.9 Chronic obstructive pulmonary disease, unspecified; E66.01 Morbid (severe) obesity due to excess calories; Z68.36 Body mass index [BMI] 36.0-36.9, adult; E11.9 Type 2 diabetes mellitus without complications; I10 Essential (primary) hypertension; K21.00 Gastro-esophageal reflux disease with esophagitis, without bleeding; E78.2 Mixed hyperlipidemia; E53.8 Deficiency of other specified B group vitamins; I35.0 Nonrheumatic aortic (valve) stenosis; Z85.828 Personal history of other malignant neoplasm of skin
CPT/HCPCS: 99213; G0463

== ENCOUNTER 2023-12-26 14:00 | Outpatient (CLI) | payer OTHER, SELFPAY ==
[2023-12-26 14:18] LABS: Hematocrit 42.7 % (42.0-52.0); Hemoglobin 13.8 g/dL (14.0-18.0); Mean Corpuscular Volume 91.4 fl (80-100); Red Blood Count 4.67 M/mm3 (4.6-6.20); White Blood Count 10.2 K/mm3 (4.5-10.0)
[2023-12-26 14:19] LABS: Basophils Absolute Auto 0.1 K/mm3 (0.0-0.1); Basophils Percent Auto 0.5 % (0.2-1.2); Eosinophils Absolute Auto 0.1 K/mm3 (0-0.3); Eosinophils Percent Auto 1.2 % (0-4.4); Immature Granulocyte Absolute 0.15 K/mm3 (0.00-0.031); Immature Granulocyte Percent A 1.5 % (0-0.5); Lymphocytes Absolute Auto 1.85 K/mm3 (0.9-3.2); Lymphocytes Percent Auto 18.1 % (18.3-44.2); Mean Corpuscular HGB Conc 32.3 g/dl (32-36); Mean Corpuscular Hemoglobin 29.6 pg (26-34); Mean Platelet Volume 9.7 fl (7.4-10.4); Monocytes Absolute Auto 0.7 K/mm3 (0.1-0.6); Monocytes Percent Auto 6.8 % (2.6-8.5); Neutrophils Absolute Auto 7.4 K/mm3 (1.3-6.7); Neutrophils Percent Auto 71.9 % (45.5-73.1); Platelet Count Result 215 k/mm3 (150-375); Red Cell Distribution Width 13.5 % (11.5-14.5)
[2023-12-26 16:46] LABS: Anion Gap 9 mmol/L (4-12); Blood Urea Nitrogen 39 mg/dL (9-20); Calcium 8.9 mg/dL (8.4-10.2); Carbon Dioxide 26 mmol/L (22-30); Chloride 102 mmol/L (98-107); Estimated Glomerular Filt Rate 48; Glucose 189 mg/dL (65-110); Potassium 4.3 mmol/L (3.4-5.0); Sodium 137 mmol/L (137-145)
== END 2023-12-26 14:01 | disposition home or self-care (01) ==
PROVIDERS: PCP Family Medicine; Visit Provider Internal Medicine Hematology & Oncology
DX: D75.1 Secondary polycythemia (principal)
CPT/HCPCS: 36415; 80048; 85025

== ENCOUNTER 2024-03-24 00:05 | Inpatient (IN) | payer OTHER, SELFPAY ==
[2024-03-24] VITALS (21 sets, daily range): BP systolic 98–166; BP diastolic 59–116; PULSE 77–144; RESP 15–38; TEMP 36.3–37.4; O2SAT 92–100; BMI 37.4
--- NOTE | 2024-03-24 | ECHO_ITS ---
Patient Info Name: Sean Cueto Age: 58 years : 1965 Gender: Male Ht: 69 in Wt: 291 lbs BSA: 2.60 m2 HR: 95 bpm BP: 109 / 75 mmHg Technical Quality: Fair, Good Exam Date: 03/24/2024 10:08 AM Exam Location: Echo Lab Patient Status: Inpatient Admit Date: 03/24/2024 Staff Ordering Physician: Henna Byrne DO Doctor Of Naturopathic Medicine: Amy Joy RDCS Attending Provider: Marj Stevenson APRN Referring Physician: Caty RASCON; Exam Type: CA echo doppler color flow Study Info Complete two-dimensional, color flow and Doppler transthoracic echocardiogram is performed. Summary 1. Complete two-dimensional, color flow and Doppler transthoracic echocardiogram is performed. 2. Technically suboptimal study due to poor sonographic images. Definity not given due to covid positive status. 3. Left ventricular chamber dimension is normal. 4. Left ventricular systolic function is preserved, estimated at 50-55%. 5. Mild anterior wall hypokinesis. 6. There is mild concentric increased left ventricular wall thickness. 7. The left ventricular diastolic function is indeterminate. 8. Tissue doppler E/e' was not performed. 9. Left atrial chamber dimension is moderately enlarged. 10. The aortic valve is not well visualized. Cannot determine number of aortic valve leaflets. 11. There is severe aortic valve sclerosis. 12. There is moderate aortic valve stenosis with a peak velocity of 362 cm/s, mean gradient of 37 mmHg, and aortic valve area of 1.1 cm2. 13. There is mild to moderate aortic valve regurgitation. 14. No pulmonary hypertension, estimated pulmonary arterial systolic pressure is 35 mmHg. 15. There is trivial pericardial effusion. Left Ventricle Tissue doppler E/e' was not performed. Left ventricular systolic function is preserved, estimated at 50-55%. Technically suboptimal study due to poor sonographic images. Definity not given due to covid positive status. Mild anterior wall hypokinesis. Left ventricular chamber dimension is normal. There is mild concentric increased left ventricular wall thickness. The left ventricular diastolic function is indeterminate. Right Ventricle Right ventricular chamber dimension is not well visualized. Right ventricular systolic function is normal. Left Atria Left atrial chamber dimension is moderately enlarged. Right Atria Right atrial chamber dimension is not well visualized. Aortic Valve The aortic valve is not well visualized. Cannot determine number of aortic valve leaflets. There is severe aortic valve sclerosis. There is moderate aortic valve stenosis with a peak velocity of 362 cm/s, mean gradient of 37 mmHg, and aortic valve area of 1.1 cm2. There is mild to moderate aortic valve regurgitation. Pulmonic Valve There is no pulmonic regurgitation. Mitral Valve There is no mitral valve stenosis. There is no mitral valve regurgitation. Tricuspid Valve There is no tricuspid valve regurgitation. No pulmonary hypertension, estimated pulmonary arterial systolic pressure is 35 mmHg. Pericardium/Pleural There is trivial pericardial effusion. Inferior Vena Cava Normal inferior vena cava with >50% collapse upon inspiration consistent with normal right atrial pressure, 5 mmHg. Aorta The aortic root size at the sinus of Valsalva is normal. Left Ventricular Outflow Tract Name Value Normal LVOT 2D LVOT Diameter 2.4 cm LVOT Doppler LVOT Peak Gradient 3 mmHg LVOT Mean Gradient 2 mmHg LVOT VTI 19 cm LVOT VTI/AV VTI Ratio 0.2 LVOT Stroke Volume 87 ml LVOT CO 6.9 l/min LVOT CI 2.7 l/min/m2 Pulmonic Valve Name Value Normal PV Doppler PV Peak Gradient 5 mmHg Tricuspid Valve Name Value Normal TV Regurgitation Doppler TR Peak Velocity 274 cm/s TR Peak Gradient 30 mmHg Estimated PAP/RSVP RA Pressure 5 mmHg <=5 PA Systolic Pressure 35 mmHg <36 RV Systolic Pressure 35 mmHg <36 Aortic Valve Name Value Normal AV Doppler AV Peak Velocity 362 cm/s AV Peak Gradient 50 mmHg AV Mean Gradient 37 mmHg AV VTI 77 cm AV Area (Cont Eq VTI) 1.1 cm2 >=3.0 AV Area (Cont Eq Bret) 1.3 cm2 AV Regurgitation 2D LVOT Area 4.7 cm2 Ventricles Name Value Normal LV Dimensions 2D/MM IVS Diastolic Thickness (2D) 1.2 cm 0.6-1.0 LVID Diastole (2D) 6.7 cm 4.2-5.8 LVIW Diastolic Thickness (2D) 1.3 cm 0.6-1.0 LVID Systole (2D) 5.3 cm 2.5-4.0 LVOT Diameter 2.4 cm LV Mass (2D Cubed) 388.57 g 88.00-224.00 LV Mass Index (2D Cubed) 150 g/m2 49-115 Relative Wall Thickness (2D) 0.38 LV Fractional Shortening/Ejection Fraction 2D/MM LV Fractional Shortening (2D) 20 % 25-43 LV EF (2D Teichmarianz) 40 % 52-72 LV Diastolic Volume (4C MOD) 260 ml LV EF (4C MOD) 56 % LV Diastolic Length (4C) 9.7 cm LV Systolic Length (4C) 9.3 cm LV Stroke Volume (4C MOD) 145 ml Atria Name Value Normal LA Dimensions LA Volume (4C A-L) 91 ml RA Dimensions RA Area (4C) 20.5 cm2 <=18.0 Report Signatures
--- NOTE | ~2024-03-24 | XR_ITS ---
EXAMINATION: XR chest 1V portable DATE: 03/24/2024 00:45 INDICATION: Dyspnea. TECHNIQUE: A single frontal view of the chest was obtained on 2 radiographs. COMPARISON: Chest single view 08/07/2023, chest CT 09/12/2023 FINDINGS: There are mild airspace opacities in all right lung zones. No pleural effusion or pneumotho rax. The heart size is normal. IMPRESSION: 1. Mild airspace opacities in all right lung zones, consistent with pneumonia versus mild pulmonary e juancarlos. Reviewed, dictated and finalized at location [facility]. DE CHANNEL ACCOUNT MANAGER IMPRESSION: 1. Mild airspace opacities in all right lung zones, consistent with pneumonia v ersus mild pulmonary edema.
--- NOTE | ~2024-03-24 | CT_ITS ---
EXAMINATION: CTA chest PE protocol DATE: 03/24/2024 15:41 INDICATION: Shortness of breath. Elevated troponin. TECHNIQUE: Computed tomography angiography (CTA) of the chest was performed with 100 mL Omnipaque-350 intravenous contrast timed to evaluate the pulmonary arteries. Coronal maximum intensity projection 3D-reconstructions were created by the technologist. Automated exposure control and iterative reconst ruction technique were employed. Exam dose: 947.29 mGy-cm total exam DLP. COMPARISON: 03/24/2024 portable AP chest 09/12/2023 CT lung screening 12/05/2018 CT chest FINDINGS: There is no evidence of pulmonary embolus. Stable 1.3 cm right apical nodule since 12/05/2018. There is minimal posterior segment right upper lobe infiltrate and minimal focal infiltrate in the mi ddle lobe, particularly the posteromedial aspect. More prominent patchy infiltrate is noted in the basilar right lower lobe, suggesting pneumonia or as piration pneumonitis. The left lung is clear. There is thoracic aortic arch calcification but no thoracic aortic aneurysm or dissection is detected . Aortic valve calcification. Left pain, anterior descending and circumflex coronary artery calcification. Borderline heart size. No pericardial effusion. No hilar or mediastinal mass lesion or lymphadenopathy. Status post cholecystectomy. Normal morphology of the adrenal glands. Probable 2.3 cm upper pole left renal cyst. No suspicious osteolytic or osteoblastic lesions. IMPRESSION: No evidence of pulmonary embolus Minimal right upper and middle lobe infiltrate, more prominent patchy right basilar infiltrate, sugge sting multi-focal right pneumonia Reviewed, dictated and finalized at [facility]. Reviewed, dictated and finalized at location [facility]. ERECTOR IMPRESSION: No evidence of pulmonary embolus Minimal right upper and middle lobe infiltrate, more prominent patchy right bas ilar infiltrate, suggesting multi-focal right pneumonia
--- NOTE | 2024-03-24 00:10 | ECG_ITS ---
Test Date: 2024-03-24 00:14:52 Measurements Intervals [place] Rate: 133 P: -51 AR: 166 QRS: -11 QRSD: 96 T: 69 QT: 299 QTc: 446 Interpretive Statements ECTOPIC ATRIAL TACHYCARDIA INCOMPLETE RIGHT BUNDLE BRANCH BLOCK [90+ ms QRS DURATION, TERMINAL R IN V1/V2, 40+ ms S IN I/aVL/V4/V5/V6] NONSPECIFIC ST & T-WAVE ABNORMALITY ABNORMAL RHYTHM ECG No previous ECG available for comparison Electronically Signed On 03-24-2024 07:41:25 VP DELIVERY by Micheal Mckoy M.D.
--- NOTE | 2024-03-24 00:16 | ECG_ITS ---
Test Date: 2024-03-24 01:54:24 Measurements Intervals [place] Rate: 110 P: 20 OR: 210 QRS: 4 QRSD: 112 T: 97 QT: 334 QTc: 453 Interpretive Statements SINUS TACHYCARDIA WITH FIRST DEGREE AV BLOCK POSSIBLE LEFT ATRIAL ENLARGEMENT [-0.1mV P-WAVE IN V1/V2] INCOMPLETE RIGHT BUNDLE BRANCH BLOCK [90+ ms QRS DURATION, TERMINAL R IN V1/V2, 40+ ms S IN I/aVL/V4/V5/V6] ANTEROSEPTAL MYOCARDIAL INFARCTION , OF INDETERMINATE AGE MODERATE T-WAVE ABNORMALITY, CONSIDER LATERAL ISCHEMIA [-0.1+ mV T-WAVE IN I/aVL/V5/V6] Compared to ECG 03/24/2024 00:14:52 First degree AV block now present Myocardial infarct finding now present Possible ischemia now present T-wave abnormality still present Electronically Signed On 03-24-2024 07:43:49 [employer] by Micheal Mckoy M.D.
[2024-03-24 00:26] LABS: Alveolar/Arterial O2 Gradient 358.1 mmHg; Base Excess ABG -7.1 mEq/l (+/-2.0); Fractional Inspired Oxygen 80 %; HCO3 ABG 20.3 mEq/l (22.0-26.0); Oxygen Content ABG 22.6 %vol (16.0-22.0); Oxygen Saturation ABG 98.8 % (95.0-100.0); Oxyhemoglobin 97.7 % THb (90.0-100.0); PCO2 ABG 47.6 mmHg (35.0-45.0); PO2 ABG 162.3 mmHg (80.0-100.0); PO2 FiO2 Ratio Arterial Blood 2.03 %; Total Hemoglobin 16.3 g/dL (12.0-18.0)
[2024-03-24 00:28] LABS: Device NON-INVASIVE VENT; Modified Allen's Test Pass; Non-Invasive Expiratory Pressure 5 CMH2O; Non-Invasive Inspiratory Pressure 15 CMH2O; Non-Invasive Vent Rate 20 /MIN; Site Drawn LEFT RADIAL; pH ABG 7.248 (7.350-7.450)
[2024-03-24 00:45] LABS: Hematocrit 49.8 % (42.0-52.0); Mean Corpuscular HGB Conc 32.1 g/dl (32-36); Mean Corpuscular Hemoglobin 29.5 pg (26-34); Mean Corpuscular Volume 91.9 fl (80-100); Mean Platelet Volume 9.9 fl (7.4-10.4); Platelet Count Result 348 k/mm3 (150-375); Red Blood Count 5.42 M/mm3 (4.6-6.20); Red Cell Distribution Width 13.8 % (11.5-14.5); White Blood Count 23.6 K/mm3 (4.5-10.0)
[2024-03-24 00:56] LABS: INR 0.9
[2024-03-24 00:57] LABS: Partial Thromboplastin Time 25.8 Seconds (22.3-36.8)
[2024-03-24 01:06] LABS: Alanine Aminotransferase 33 U/L (6-50); Alkaline Phosphatase 73 U/L (38-126); Anion Gap 13 mmol/L (4-12); Aspartate Amino Transferase 38 U/L (17-59); Bilirubin,Total 0.6 mg/dL (0.2-1.3); Blood Urea Nitrogen 20 mg/dL (9-20); Calcium 8.7 mg/dL (8.4-10.2); Carbon Dioxide 22 mmol/L (22-30); Chloride 98 mmol/L (98-107); Estimated CRCL calculation 85 ml/min; Estimated Glomerular Filt Rate > 60; Glucose 227 mg/dL (65-110); Lipase 114 U/L (23-300); Potassium 3.4 mmol/L (3.4-5.0); Sodium 133 mmol/L (137-145)
[2024-03-24 01:10] LABS: Anisocytosis 1+; Lymphocytes Absolute Manual 4.01 K/mm3 (1.1-4.5); Monocytes Absolute Manual 2.12 K/mm3 (0.1-0.90); Monocytes Percent Manual 9 % (3-9); Neutrophils Percent Manual 74 % (46-73); Nucleated Red Blood Cells 1 %; Platelet Estimate Increased (Adequate); Total Cells Counted 100
[2024-03-24 01:11] LABS: Atypical Lymphocytes Present; Schistocytes None Seen; Smudge Cells MODERATE
[2024-03-24 01:17] LABS: NT Pro B Type Natriuretic Pept 6090 pg/mL (19.9-100); Troponin I 0.032 ng/mL (0.000-0.034)
[2024-03-24 01:21] LABS: Influenza A QL RT-PCR Negative (Negative); Influenza B QL RT-PCR Negative (Negative); RSV RNA, RT-PCR Negative (Negative); SARS-CoV-2 RNA PCR Positive (Negative)
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
[2024-03-24] MEDS: FUROSEMIDE INJ 40 MG/4 ML VIAL IV PUSH (02:07)
[2024-03-24 02:08] LABS: Procalcitonin 0.1 ng/mL
[2024-03-24] MEDS: levoFLOXacin 750 MG/D5W 150 ML 750 MG/150 ML BAG 100 MG IVPB (02:19)
--- NOTE | 2024-03-24 03:40 | P.HP_ITS ---
H&P: HPI History of Present Illness Date/Time: 03/24/24 03:40 Chief Complaint: Respiratory distress Narrative: 58-year-old male with past medical history of moderate aortic stenosis, type 2 diabetes mellitus, morbid obesity, mild obstructive sleep apnea, asthma/COPD overlap who presented to the ER via EMS due to acute sudden onset shortness of breath. Patient reported that back at the beginning of the month he was having cough and cold symptoms. He contacted primary care provider received a course of antibiotics with azithromycin. Within 7-10 days his symptoms had improved. He reports that 7 days ago he underwent dental extraction of 7 teeth. Since that time he has been having an occasional cough productive of brownish or bloody material that he associates with gingival irritation and postoperative issues. He does report some mild rhinorrhea over the last 2 days but was not having any increased shortness of breath, increased cough, congestion, fevers or chills. He was at the gas station today when he acutely developed shortness of breath. The patient was found to be in acute respiratory extremis and had frothy secretions from his mouth. He was placed on BiPAP in given a dose of dexamethasone. His blood pressures on the scene were 230/150. He received 1 dose of sublingual nitroglycerin in route. At the time he arrived to the ER he was still in respiratory distress but had improved. He was continued on BiPAP an ABG was performed which demonstrated combined respiratory and metabolic acidosis. He he was on BiPAP at 15 or 5 and 80%. His PO2 was 162. His initial troponin was negative. His initial EKG demonstrated atrial tachycardia with significant baseline artifact rate of 130 incomplete right bundle-branch block. Repeat EKG demonstrated sinus tachycardia rate 110 with moderate T-wave abnormality 1 aVL into a lesser extent V5 and V6 the patient denied having any chest pain at any time. The patient was evaluated by his forest ecologist earlier this month and instructed to decrease his Lasix from 40 mg p.o. b.i.d. down to 40 mg daily or patient even said he was instructed to not take the Lasix at all. He then followed up with his marketing database consultant on the and his Lasix was decreased down to 20 mg daily. He reports that he has been compliant with his antihypertensives. He has not had any orthopnea, paroxysmal nocturnal dyspnea or developing extremity swelling since that time. He has not recently weighed himself. But on review of his records from outpatient visits his weight appears stable or improved. The patient's repeat troponin was elevated to 0.926 and a subsequent 6 hour troponin was ordered and therapeutic Lovenox 1 time dose 1 milligram/kilogram was ordered. And by the time the patient had arrived to the IMU he was much more comfortable. He was sitting upright in bed with BiPAP in place. He was requesting the BiPAP be removed. This was removed while I was at bedside. He was weaned down to 2 L nasal cannula in satting 100%. When I followed up shortly there I requested the patient's oxygen being weaned further down to 1 L and he was still maintaining saturations. His examination has decreased breath sounds at the bases but he admitted he was not taking deep breaths. His COVID PCR was positive. I suspect that this may have been due to his symptoms from a couple of weeks ago when he was more acutely ill and received azithromycin. And may not be due to acute COVID. His white count was elevated above 20. He was started on empiric antibiotic therapy with Levaquin to cover possible pneumonia. Unfortunately blood cultures were not obtained prior to Levaquin administration. Review of Systems 2 Review of Systems: 12 systems were reviewed with pertinent positives and negatives per HPI. Except as documented in the HPI, all other systems were reviewed and are negative. [facility] Past Medical History Medical History (Updated 03/24/24 @ 07:17 by Henna Byrne DO) Anxiety Gas bloat syndrome Acute non-recurrent maxillary sinusitis Inflamed skin tag (~05/31/23) left upper eyelid margin Abdominal pannus large abdominal pannus after 160 lb weight loss GERD with esophagitis EGD 03/02/2023 with mild chronic esophagitis on biopsy. Fall down stairs Left elbow pain COVID-19 (~11/16/22) And March 2024 Neoplasm of skin changing pigmented nevus plantar surface left foot with anticipated biopsy by paper pattern folder. Chronic bilateral low back pain with bilateral sciatica x-ray of the lumbar spine on 08/17/2022 reveals severe lumbar spondylosis. Polyp of colon (12/01/20) multiple , 5 tubular adenomas, polyps 12/01/2020 with recheck in 3 years. Chronic neck pain Moderate spondylosis on cervical spine x-ray in urgent care 11/27/2022. Gastro-esophageal reflux disease without esophagitis EGD on 03/02/2023 with biopsy with mild esophagitis and gastropathy. Vitamin B12 deficiency Male erectile dysfunction, unspecified Seasonal allergic rhinitis BMI 37.0-37.9, adult Mixed hyperlipidemia Cholesterol 141, triglycerides 142, HDL 34, LDL 83 with ratio 4.1 on 11/11/2022. Lumbar degenerative disc disease COVID-19 vaccine series completed Aortic stenosis Moderate aortic stenosis with trace aortic regurgitation and grade 1 diastolic dysfunction with ejection fraction 55-60% on echo 08/07/2023. Hypokinesis of the anterior left ventricle. Carotid stenosis Erythrocytosis Emphysema lung Lung nodule Tobacco abuse counseling Renal cyst Diabetes Chronic obstructive pulmonary disease Class 3 severe obesity due to excess calories with serious comorbidity and body mass index (BMI) greater than or equal to 70 in adult Patient BMI is down to 37 after losing 160 lb with diet lifestyle modification Essential (primary) hypertension Nocturnal hypoxemia due to emphysema WHITNEY (obstructive sleep apnea) failure on CPAP, treated with weight loss and repeat sleep study demonstrated improvement in obstructive sleep apnea from severe to mild Proteinuria Spinal stenosis, unspecified region other than cervical Tobacco use quit smoking on 08/05/2023. 1-1/2 packs of cigarettes daily Type 2 diabetes mellitus with diabetic peripheral angiopathy and gangrene, with long-term current use of insulin Hemoglobin A1c 5.8 on 10/28/2022. Fasting glucose 101 with hemoglobin A1c 5.5 on 11/11/2022. Surgical History Surgical History History of placement of ear tubes H/O foot surgery No significant past surgical history (~05/2018) lap cholecystectomy left carpal tunnel right carpal tunnel R ear reconstructive surgery Family History Family History Father Diabetes mellitus Heart disease Coronary artery disease Hypertension High cholesterol Mother Family history of chronic obstructive pulmonary disease Cardiac valve prolapse Grandparent Liver cancer paternal grandmother Grandparent Colon cancer paternal grandfather Social History Social History (Updated 03/24/24 @ 07:09 by Henna Byrne DO) Social History: He lives with his of 37 years. There 35-year-old son still lives with them. They also have a 30-year-old daughter who lives locally. He has been disabled due to a back injury since 2013. He used to smoke 1-1.5 packs of cigarettes per day but quit smoking in August of 2023. He smokes marijuana on a somewhat frequent basis. He denies any significant alcohol use. Code status: Full code Surrogate decision maker: Sabiha () Smoking packs per day: 1 Smoking cigarettes per day: 20.0 Years smoked: 47 Smoking pack-years: 47.00 Smoking status: Former smoker Tobacco type: cigarettes Second hand tobacco smoke exposure: Yes Smoking end date: 08/05/23 Alcohol intake: never Substance use: never Substance use type: marijuana Do You Feel Safe in your Home?: Yes Lack of Transportation: No Lack of Food: Never True Current Housing: I Have Housing Concerned About Future Housing: No Difficulty Paying Gas/Electric Bills: No Difficulty Paying for Meds: YES Currently Unemployed: No Education: Decline to Answer Difficulty w/ Childcare or Family Care: No Living arrangements: with family Gender identity (if verbalized by the patient): Male Spiritual care concerns: No Meds Home Medications and Allergies Home Medications ?Medication ?Instructions ?Recorded ?Confirmed ?Type aspirin 81 mg tablet,delayed 81 mg PO DAILY 05/27/20 03/24/24 History release cholecalciferol (vitamin D3) 125 5,000 unit PO DAILY 05/05/22 03/24/24 History mcg (5,000 unit) capsule cyanocobalamin (vitamin B-12) 1,000 mcg PO DAILY 05/05/22 03/24/24 History 1,000 mcg tablet (Vitamin B-12) fluticasone propionate 50 50 mcg intranasal DAILY 01/12/23 03/24/24 History mcg/actuation nasal spray,suspension insulin glargine U-300 conc 300 15 unit subcut DAILY 01/14/23 03/24/24 History unit/mL (1.5 mL) subcutaneous pen (Toureginaldo SoloStar U-300 Insulin) atorvastatin 40 mg tablet 40 mg PO QHS #90 tabs 06/10/23 03/24/24 Rx diltiazem HCl 240 mg 240 mg PO DAILY #90 caps 06/24/23 03/24/24 Rx capsule,extended release 24 hr (Cardizem CD) metoprolol succinate 100 mg 100 mg PO DAILY #90 tabs 07/05/23 03/24/24 Rx tablet,extended release 24 hr triamterene 37.5 1 tablet PO QAM #90 tabs 07/28/23 03/24/24 Rx mg-hydrochlorothiazide 25 mg tablet albuterol sulfate 90 mcg/actuation 1 - 2 puff inhalation Q4-6H PRN 08/05/23 03/24/24 Rx aerosol inhaler (ProAir HFA) shortness of breath or wheezing #8.5 grams lisinopril 20 mg tablet 20 mg PO QPM 08/07/23 03/24/24 History lisinopril 40 mg tablet 40 mg PO QAM 08/07/23 03/24/24 History metformin 1,000 mg tablet 500 mg PO BID 08/07/23 03/24/24 History vit C 250 mg-E 90 mg-zinc 40 1 tablet PO QAM AND QPM 08/07/23 03/24/24 History mg-copper 1 [id number] chew tablet (PreserVision AREDS-2) blood sugar diagnostic (Contour See Rx Instructions .Route 08/31/23 03/24/24 Rx Next Test Strips) .COMPLEX #200 strips insulin syringe-needle U-100 1 mL #200 ea 10/13/23 03/24/24 Rx 27 gauge x 5/8 (BD SafetyGlide Syringe) empagliflozin 25 mg tablet 25 mg PO DAILY #90 tabs 11/15/23 03/24/24 Rx (Jardiance) lansoprazole 30 mg capsule,delayed 30 mg PO DAILY #90 caps 12/13/23 03/24/24 Rx release buspirone 5 mg tablet 5 mg PO QHS #30 tabs 02/08/24 03/24/24 Rx pen needle, diabetic 29 gauge x See Rx Instructions .Route 03/19/24 03/24/24 Rx 1/2 (BD Ultra-Fine Original Pen .COMPLEX #300 ea Needle) furosemide 40 mg tablet 20 mg PO DAILY 03/22/24 03/24/24 History dulaglutide 3 mg/0.5 mL 3 mg subcut WEEKLY 03/24/24 03/24/24 History subcutaneous pen injector (Trulicity) Allergies Allergy/AdvReac Type Severity Reaction Status Date / Time erythromycin base AdvReac Intermediate Gastrointestinal Verified 03/24/24 04:47 Upset tetracycline AdvReac Intermediate Gastrointestinal Verified 03/24/24 04:47 Upset Penicillins AdvReac Mild Hives Verified 03/24/24 04:47 Vital Signs Vital Signs - 24 hr 03/24/24 00:05 03/24/24 00:05 03/24/24 00:55 Temperature 98.6 F Pulse Rate 144 H 123 H Respiratory Rate 25 H 38 H 33 H Blood Pressure 166/116 H Pulse Oximetry 92 98 98 Oxygen Delivery Room Air BiPAP BiPAP 03/24/24 01:11 03/24/24 02:26 03/24/24 03:21 Temperature Pulse Rate 118 H 108 H 102 H Respiratory Rate 18 15 19 Blood Pressure 142/96 H 132/82 120/84 Pulse Oximetry 100 100 100 Oxygen Delivery Exam 2 Narrative: Weight 132 kg BMI 43 Const: Other: Morbidly obese, appears older than stated age, no acute distress, sitting upright on the side of the bed HENMT: Other: Mucous membranes are tacky, no oral pharyngeal erythema, crowded posterior oropharynx Eyes: Other: Pupils are equal and reactive, no scleral icterus, cataracts noted Neck: Other: Large neck circumference, submandibular lymphadenopathy noted Resp: Other: Decreased breath sounds posterior lung bases, no increased work of breathing Cardio: Other: Regular rate, regular rhythm, 2+ bilateral radial pedal pulses GI: Other: Obese, soft, nontender Skin: Other: Patient has a violaceous rash scattered across his body including his cheeks, dorsum of his arms, the majority of his abdominal wall and scattered on his legs. He states that this rash is been chronic for years it is nonpruritic nonpalpable, he has what appears to be chronic venous stasis changes but more of a violaceous color rash on his anterior shins right greater than left with significant scarring and shiny wax like appearance to the skin of the lateral right oneal and calf, no increased warmth, erythema and is about 2 in from the ankle and spares the feet and palms bilaterally Neuro: Other: Alert orient x4, speech is clear, no facial asymmetry, no localizing neurologic deficits noted during the course of conversation Extrem: Other: No clubbing, cyanosis or edema, skin changes as noted above, no foot wounds Psych: Other: Appropriate mood and affect, pleasant and cooperative, judgment and insight intact H&P: Results Labs Labs: Laboratory Tests 03/24/24 00:19 03/24/24 00:19 03/24/24 03/24/24 03/24/24 00:19 00:19 00:19 WBC 23.6 H RBC 5.42 Hgb 16.0 Hct 49.8 MCV 91.9 MCH 29.5 MCHC 32.1 RDW 13.8 Plt Count 348 D MPV 9.9 Immature Gran % (Auto) Not Reportable Neut % (Auto) Not Reportable Lymph % (Auto) Not Reportable [place] % (Auto) Not Reportable Eos % (Auto) Not Reportable Baso % (Auto) Not Reportable Lymph # (Auto) Not Reportable [place] # (Auto) Not Reportable Eos # (Auto) Not Reportable Baso # (Auto) Not Reportable Abs Immat Gran (auto) Not Reportable Absolute Neuts (auto) Not Reportable Absolute Nucleated RBC Not Reportable Total Counted 100 Neutrophils % (Manual) 74 H Lymphocytes % (Manual) 17.0 L Monocytes % (Manual) 9 Nucleated RBC % Not Reportable Abs Lymphs (Manual) 4.01 Abs Monocytes (Manual) 2.12 H Nucleated RBCs 1 Atypical Lymphocytes Present Smudge Cells Moderate Platelet Estimate Increased Anisocytosis 1+ Schistocytes None seen PT 13.0 INR 0.9 APTT 25.8 Puncture Site Left radial ABG pH 7.248 L* ABG pCO2 47.6 H ABG pO2 162.3 H ABG PO2/FiO2 Ratio 2.03 ABG HCO3 20.3 L ABG O2 Saturation 98.8 ABG O2 Content 22.6 H ABG Base Excess -7.1 A-a Gradient 358.1 Oxyhemoglobin 97.7 Total Hemoglobin 16.3 O2 Delivery Device Non-invasive vent O2 Liters/Min Not Reportable Vent Rate 20 FiO2 80 Expiratory Pressure 5 Inspiratory Pressure 15 Sodium Cancelled 133 L Potassium Cancelled 3.4 Chloride Cancelled Carbon Dioxide Anion Gap BUN Creatinine Estim Creat Clear Calc Estimated GFR Glucose Calcium Magnesium Total Bilirubin AST ALT Alkaline Phosphatase Troponin I NT-Pro-B Natriuret Pep Total Protein Albumin Lipase Procalcitonin Influenza A (RT-PCR) Influenza B (RT-PCR) RSV (RT-PCR) SARS-CoV-2 RNA (RT-PCR) 03/24/24 03/24/24 03/24/24 00:19 00:19 00:19 WBC RBC Hgb Hct MCV MCH MCHC RDW Plt Count MPV Immature Gran % (Auto) Neut % (Auto) Lymph % (Auto) [place] % (Auto) Eos % (Auto) Baso % (Auto) Lymph # (Auto) [place] # (Auto) Eos # (Auto) Baso # (Auto) Abs Immat Gran (auto) Absolute Neuts (auto) Absolute Nucleated RBC Total Counted Neutrophils % (Manual) Lymphocytes % (Manual) Monocytes % (Manual) Nucleated RBC % Abs Lymphs (Manual) Abs Monocytes (Manual) Nucleated RBCs Atypical Lymphocytes Smudge Cells Platelet Estimate Anisocytosis Schistocytes PT INR APTT Puncture Site ABG pH ABG pCO2 ABG pO2 ABG PO2/FiO2 Ratio ABG HCO3 ABG O2 Saturation ABG O2 Content ABG Base Excess A-a Gradient Oxyhemoglobin Total Hemoglobin O2 Delivery Device O2 Liters/Min Vent Rate FiO2 Expiratory Pressure Inspiratory Pressure Sodium Potassium Chloride 98 Carbon Dioxide Cancelled 22 Anion Gap Cancelled 13 H BUN Cancelled Creatinine Estim Creat Clear Calc Estimated GFR Glucose Calcium Magnesium Total Bilirubin AST ALT Alkaline Phosphatase Troponin I NT-Pro-B Natriuret Pep Total Protein Albumin Lipase Procalcitonin Influenza A (RT-PCR) Influenza B (RT-PCR) RSV (RT-PCR) SARS-CoV-2 RNA (RT-PCR) 03/24/24 03/24/24 03/24/24 00:19 00:19 00:19 WBC RBC Hgb Hct MCV MCH MCHC RDW Plt Count MPV Immature Gran % (Auto) Neut % (Auto) Lymph % (Auto) [place] % (Auto) Eos % (Auto) Baso % (Auto) Lymph # (Auto) [place] # (Auto) Eos # (Auto) Baso # (Auto) Abs Immat Gran (auto) Absolute Neuts (auto) Absolute Nucleated RBC Total Counted Neutrophils % (Manual) Lymphocytes % (Manual) Monocytes % (Manual) Nucleated RBC % Abs Lymphs (Manual) Abs Monocytes (Manual) Nucleated RBCs Atypical Lymphocytes Smudge Cells Platelet Estimate Anisocytosis Schistocytes PT INR APTT Puncture Site ABG pH ABG pCO2 ABG pO2 ABG PO2/FiO2 Ratio ABG HCO3 ABG O2 Saturation ABG O2 Content ABG Base Excess A-a Gradient Oxyhemoglobin Total Hemoglobin O2 Delivery Device O2 Liters/Min Vent Rate FiO2 Expiratory Pressure Inspiratory Pressure Sodium Potassium Chloride Carbon Dioxide Anion Gap BUN 20 D Creatinine Cancelled 1.10 Estim Creat Clear Calc Cancelled 85 Estimated GFR Cancelled Glucose Calcium Magnesium Total Bilirubin AST ALT Alkaline Phosphatase Troponin I NT-Pro-B Natriuret Pep Total Protein Albumin Lipase Procalcitonin Influenza A (RT-PCR) Influenza B (RT-PCR) RSV (RT-PCR) SARS-CoV-2 RNA (RT-PCR) 03/24/24 03/24/24 03/24/24 00:19 00:19 00:19 WBC RBC Hgb Hct MCV MCH MCHC RDW Plt Count MPV Immature Gran % (Auto) Neut % (Auto) Lymph % (Auto) [place] % (Auto) Eos % (Auto) Baso % (Auto) Lymph # (Auto) [place] # (Auto) Eos # (Auto) Baso # (Auto) Abs Immat Gran (auto) Absolute Neuts (auto) Absolute Nucleated RBC Total Counted Neutrophils % (Manual) Lymphocytes % (Manual) Monocytes % (Manual) Nucleated RBC % Abs Lymphs (Manual) Abs Monocytes (Manual) Nucleated RBCs Atypical Lymphocytes Smudge Cells Platelet Estimate Anisocytosis Schistocytes PT INR APTT Puncture Site ABG pH ABG pCO2 ABG pO2 ABG PO2/FiO2 Ratio ABG HCO3 ABG O2 Saturation ABG O2 Content ABG Base Excess A-a Gradient Oxyhemoglobin Total Hemoglobin O2 Delivery Device O2 Liters/Min Vent Rate FiO2 Expiratory Pressure Inspiratory Pressure Sodium Potassium Chloride Carbon Dioxide Anion Gap BUN Creatinine Estim Creat Clear Calc Estimated GFR > 60 Glucose Cancelled 227 H Calcium Cancelled 8.7 Magnesium Cancelled Total Bilirubin AST ALT Alkaline Phosphatase Troponin I NT-Pro-B Natriuret Pep Total Protein Albumin Lipase Procalcitonin Influenza A (RT-PCR) Influenza B (RT-PCR) RSV (RT-PCR) SARS-CoV-2 RNA (RT-PCR) 03/24/24 03/24/24 03/24/24 00:19 00:19 00:19 WBC RBC Hgb Hct MCV MCH MCHC RDW Plt Count MPV Immature Gran % (Auto) Neut % (Auto) Lymph % (Auto) [place] % (Auto) Eos % (Auto) Baso % (Auto) Lymph # (Auto) [place] # (Auto) Eos # (Auto) Baso # (Auto) Abs Immat Gran (auto) Absolute Neuts (auto) Absolute Nucleated RBC Total Counted Neutrophils % (Manual) Lymphocytes % (Manual) Monocytes % (Manual) Nucleated RBC % Abs Lymphs (Manual) Abs Monocytes (Manual) Nucleated RBCs Atypical Lymphocytes Smudge Cells Platelet Estimate Anisocytosis Schistocytes PT INR APTT Puncture Site ABG pH ABG pCO2 ABG pO2 ABG PO2/FiO2 Ratio ABG HCO3 ABG O2 Saturation ABG O2 Content ABG Base Excess A-a Gradient Oxyhemoglobin Total Hemoglobin O2 Delivery Device O2 Liters/Min Vent Rate FiO2 Expiratory Pressure Inspiratory Pressure Sodium Potassium Chloride Carbon Dioxide Anion Gap BUN Creatinine Estim Creat Clear Calc Estimated GFR Glucose Calcium Magnesium 2.0 Total Bilirubin Cancelled 0.6 AST Cancelled 38 ALT Cancelled Alkaline Phosphatase Troponin I NT-Pro-B Natriuret Pep Total Protein Albumin Lipase Procalcitonin Influenza A (RT-PCR) Influenza B (RT-PCR) RSV (RT-PCR) SARS-CoV-2 RNA (RT-PCR) 03/24/24 03/24/24 03/24/24 00:19 00:19 00:19 WBC RBC Hgb Hct MCV MCH MCHC RDW Plt Count MPV Immature Gran % (Auto) Neut % (Auto) Lymph % (Auto) [place] % (Auto) Eos % (Auto) Baso % (Auto) Lymph # (Auto) [place] # (Auto) Eos # (Auto) Baso # (Auto) Abs Immat Gran (auto) Absolute Neuts (auto) Absolute Nucleated RBC Total Counted Neutrophils % (Manual) Lymphocytes % (Manual) Monocytes % (Manual) Nucleated RBC % Abs Lymphs (Manual) Abs Monocytes (Manual) Nucleated RBCs Atypical Lymphocytes Smudge Cells Platelet Estimate Anisocytosis Schistocytes PT INR APTT Puncture Site ABG pH ABG pCO2 ABG pO2 ABG PO2/FiO2 Ratio ABG HCO3 ABG O2 Saturation ABG O2 Content ABG Base Excess A-a Gradient Oxyhemoglobin Total Hemoglobin O2 Delivery Device O2 Liters/Min Vent Rate FiO2 Expiratory Pressure Inspiratory Pressure Sodium Potassium Chloride Carbon Dioxide Anion Gap BUN Creatinine Estim Creat Clear Calc Estimated GFR Glucose Calcium Magnesium Total Bilirubin AST ALT 33 Alkaline Phosphatase Cancelled 73 Troponin I 0.032 NT-Pro-B Natriuret Pep Cancelled 6090 H Total Protein Cancelled Albumin Lipase Procalcitonin Influenza A (RT-PCR) Influenza B (RT-PCR) RSV (RT-PCR) SARS-CoV-2 RNA (RT-PCR) 03/24/24 03/24/24 03/24/24 00:19 00:19 00:19 WBC RBC Hgb Hct MCV MCH MCHC RDW Plt Count MPV Immature Gran % (Auto) Neut % (Auto) Lymph % (Auto) [place] % (Auto) Eos % (Auto) Baso % (Auto) Lymph # (Auto) [place] # (Auto) Eos # (Auto) Baso # (Auto) Abs Immat Gran (auto) Absolute Neuts (auto) Absolute Nucleated RBC Total Counted Neutrophils % (Manual) Lymphocytes % (Manual) Monocytes % (Manual) Nucleated RBC % Abs Lymphs (Manual) Abs Monocytes (Manual) Nucleated RBCs Atypical Lymphocytes Smudge Cells Platelet Estimate Anisocytosis Schistocytes PT INR APTT Puncture Site ABG pH ABG pCO2 ABG pO2 ABG PO2/FiO2 Ratio ABG HCO3 ABG O2 Saturation ABG O2 Content ABG Base Excess A-a Gradient Oxyhemoglobin Total Hemoglobin O2 Delivery Device O2 Liters/Min Vent Rate FiO2 Expiratory Pressure Inspiratory Pressure Sodium Potassium Chloride Carbon Dioxide Anion Gap BUN Creatinine Estim Creat Clear Calc Estimated GFR Glucose Calcium Magnesium Total Bilirubin AST ALT Alkaline Phosphatase Troponin I NT-Pro-B Natriuret Pep Total Protein 7.0 Albumin Cancelled 4.0 Lipase Cancelled 114 Procalcitonin 0.1 Influenza A (RT-PCR) Negative Influenza B (RT-PCR) Negative RSV (RT-PCR) Negative SARS-CoV-2 RNA (RT-PCR) Positive A 03/24/24 03:07 WBC RBC Hgb Hct MCV MCH MCHC RDW Plt Count MPV Immature Gran % (Auto) Neut % (Auto) Lymph % (Auto) [place] % (Auto) Eos % (Auto) Baso % (Auto) Lymph # (Auto) [place] # (Auto) Eos # (Auto) Baso # (Auto) Abs Immat Gran (auto) Absolute Neuts (auto) Absolute Nucleated RBC Total Counted Neutrophils % (Manual) Lymphocytes % (Manual) Monocytes % (Manual) Nucleated RBC % Abs Lymphs (Manual) Abs Monocytes (Manual) Nucleated RBCs Atypical Lymphocytes Smudge Cells Platelet Estimate Anisocytosis Schistocytes PT INR APTT Puncture Site ABG pH ABG pCO2 ABG pO2 ABG PO2/FiO2 Ratio ABG HCO3 ABG O2 Saturation ABG O2 Content ABG Base Excess A-a Gradient Oxyhemoglobin Total Hemoglobin O2 Delivery Device O2 Liters/Min Vent Rate FiO2 Expiratory Pressure Inspiratory Pressure Sodium Potassium Chloride Carbon Dioxide Anion Gap BUN Creatinine Estim Creat Clear Calc Estimated GFR Glucose Calcium Magnesium Total Bilirubin AST ALT Alkaline Phosphatase Troponin I Pending NT-Pro-B Natriuret Pep Total Protein Albumin Lipase Procalcitonin Influenza A (RT-PCR) Influenza B (RT-PCR) RSV (RT-PCR) SARS-CoV-2 RNA (RT-PCR) chest x-ray personally reviewed. Radiologic interpretation pending. Findings consistent with pulmonary edema although right greater than left distribution could be also could consistent with pneumonia cardiomegaly noted All imaging and EKGs personally reviewed and interpreted. And unless stated otherwise agree with radiologic and cardiology interpretation. Assessment and Plan Assessment and plan (1) Acute respiratory failure with hypoxia and hypercapnia: Code(s): J96.01 - Acute respiratory failure with hypoxia; J96.02 - Acute respiratory failure with hypercapnia Status: Acute (2) Flash pulmonary edema: Code(s): J81.0 - Acute pulmonary edema Status: Acute (3) COVID: Code(s): U07.1 - COVID-19 Status: Acute (4) Leukocytosis: Qualifiers: Leukocytosis type: leukemoid reaction Qualified Code(s): D72.823 - Leukemoid reaction Code(s): D72.829 - Elevated white blood cell count, unspecified Status: Acute Plan The patient had acute hypoxic hypercapnic respiratory failure. Presentation seems most consistent with flash pulmonary edema given rapid onset and rapid improvement in symptoms. The patient had rapid improvement with symptoms with the administration of Lasix and with use of sublingual nitroglycerin. He could have also had a component of accelerated hypertension leading to flash pulmonary edema but I am more suspicious of acute decompensation with patient's history of aortic stenosis. The patient states he is not supposed to have a repeat echo until August of next year but given acute onset of symptoms I have ordered a repeat echo The patient did develop elevated troponins but is still adamant that he does not have any chest pain. His troponins have continued to trend upward. However, the T-wave abnormalities noted on 2nd EKG resolved on the 3rd EKG. The patient has received 1 milligram/kilogram dose of Lovenox. Will consult the patient's forest ecologist Dr. Davenport for further recommendations and evaluation. Will resume the patient's home beta-kan, aspirin, Cardizem and lisinopril. Will increase patient's Lasix back to 40 mg daily. Patient has already had good urine output. Troponin out the patient is likely due to type 2 infarct. Patient's uncontrolled blood pressures had resolved by the time he arrived to the IMU. The patient's COVID PCR did return positive. However given the patient's report of more concerning upper respiratory symptoms back earlier in the month for which he received azithromycin I spoke suspect that that is when he actually had COVID but I cannot prove this. X-ray demonstrates pulmonary edema versus pneumonia on my evaluation radiologic interpretation was pending. Patient was started on empiric antibiotic therapy with Levaquin but again I am less suspicious of infection given sudden acute onset of symptoms. And subsequent rapid improvement in symptoms with treatment for pulmonary edema and hypertensive crisis. The patient does have significant leukocytosis on his labs in the ER but again denies any significant respiratory symptoms. Leukocytosis is most consistent with look avoid reaction probably from acute stress and is state of respiratory distress. Will repeat CBC this a.m. Patient does have type 2 diabetes mellitus with hyperglycemia. He did receive 1 dose of Decadron in the field. He would rather avoid steroid use as he had some uncontrolled glucoses last time he was hospitalized in August due to steroid use. He reports that at home his glucoses have been relatively well controlled and he has not needed short-acting insulin in a long time. Will check A1c. Will resume the patient's home diabetic medications and will add moderate sliding scale insulin with Accu-Cheks a.c. HS. Hypoglycemia protocol will be added as needed. Quality VTE Prophylaxis VTE prophylaxis: pharmacologic ordered (Lovenox 1 milligram/kilogram x1) Hospitalist [facility] Advance Care Plan I have confirmed that the patient's Advanced Care Plan is present, code status is documented, or surrogate decision maker is listed in patient medical record.: Yes Medication Reconciliation I have utilized all available resources to obtain, update and review the patients current medications (includes all prescriptions, OTC, herbals, cannabis, and nutritional supplements).: Yes
[2024-03-24 04:21] LABS: Troponin I 0.926 ng/mL (0.000-0.034)
--- NOTE | 2024-03-24 05:00 | PC.NURSE ---
This patient, Sean Cueto Jr., was admitted to IMU Room 201-01 at 0339. Patient/family oriented to hospital policies and general routines including ID bracelet, bed and alarms, visiting hours, pain management, procedures, bathroom and other care routines, personal items, smoking policy, room service/diet, and visiting hours. Information on how to activate the Rapid Response Team has been discussed. Patient/Family are encouraged to report perceived risks to care and to ask questions if they do not understand what they are told or what they should do.
--- NOTE | 2024-03-24 06:00 | ECG_ITS ---
Test Date: 2024-03-24 06:09:04 Measurements Intervals [place] Rate: 89 P: 24 WI: 230 QRS: -21 QRSD: 110 T: 81 QT: 379 QTc: 463 Interpretive Statements SINUS RHYTHM WITH FIRST DEGREE AV BLOCK POSSIBLE LEFT ATRIAL ENLARGEMENT [-0.1mV P WAVE IN V1/V2] INCOMPLETE RIGHT BUNDLE BRANCH BLOCK [90+ ms QRS DURATION, TERMINAL R IN V1/V2, 40+ ms S IN I/aVL/V4/V5/V6] LEFT VENTRICULAR HYPERTROPHY AND ST-T CHANGE [VOLTAGE CRITERIA PLUS ST/T ABNORMALITY] INFERIOR MYOCARDIAL INFARCTION [40+ ms Q WAVE AND/OR ST/T ABNORMALITY IN II/aVF], OF INDETERMINATE AGE ANTEROSEPTAL MYOCARDIAL INFARCTION [40+ ms Q WAVE IN V1-V4], OF INDETERMINATE AGE ACUTE DE Electronically Signed On 03-27-2024 14:49:41 PICKUP DRIVER by Aquiles Little M.D.
[2024-03-24] MEDS: ENOXAPARIN 120 MG/0.8 ML SYRINGE 115 MG SUB-Q ×2 (06:59→18:06)
[2024-03-24 08:01] LABS: Hemoglobin A1C 6.3 % (<5.7)
[2024-03-24 08:21] LABS: Hematocrit 43.2 % (42.0-52.0); Hemoglobin 14.8 g/dL (14.0-18.0); Mean Corpuscular HGB Conc 34.3 g/dl (32-36); Mean Corpuscular Hemoglobin 29.7 pg (26-34); Mean Corpuscular Volume 86.6 fl (80-100); Mean Platelet Volume 9.7 fl (7.4-10.4); Platelet Count Result 203 k/mm3 (150-375); Red Blood Count 4.99 M/mm3 (4.6-6.20); Red Cell Distribution Width 13.8 % (11.5-14.5); White Blood Count 10.6 K/mm3 (4.5-10.0)
[2024-03-24 08:52] LABS: Glucose Point of Care 172 mg/dl (65-105)
[2024-03-24] MEDS: INSULIN GLARGINE (*BKC) 100 UNITS/ML 15 UNITS SUB-Q (09:36)
[2024-03-24] MEDS: dilTIAZem HCL CD 240 MG CAP.24HR PO (09:37)
[2024-03-24] MEDS: EMPAGLIFLOZIN 25 MG TABLET PO (09:37)
[2024-03-24] MEDS: lisinopriL 20 MG TABLET 40 MG PO (09:37)
[2024-03-24] MEDS: CYANOCOBALAMIN 1,000 MCG TABLET 1000 MCG PO (09:38)
[2024-03-24] MEDS: ASPIRIN 81 MG ENTERIC TABLET PO (09:38)
[2024-03-24] MEDS: FUROSEMIDE 40 MG TABLET PO (09:38)
[2024-03-24] MEDS: METOPROLOL SUCCINATE EXT REL 100 MG TABCR PO (09:38)
[2024-03-24] MEDS: CHOLECALCIFEROL 5,000 UNITS TABLET 5000 UNITS PO (09:38)
[2024-03-24] MEDS: PANTOPRAZOLE 40 MG TABLET PO (09:38)
[2024-03-24] MEDS: TRIAMTERENE 37.5 MG/HCTZ 25 MG (MAXZIDE) TABLET 1 TAB PO (09:38)
[2024-03-24] MEDS: OPTI-GEN TAB 1 TABLET PO ×2 (09:38→20:32)
[2024-03-24] MEDS: FLUTICASONE PROPIONATE 0.05% NA SPR 16 GM BTL (*BKC) 1 SPRAY NASAL (09:41)
[2024-03-24] MEDS: PSYLLIUM POWDER PACKET 1 PACKET PO (11:30)
[2024-03-24] MEDS: INSULIN ASPART (*BKC) 100 UNITS/ML SUB-Q ×2 (12:15→20:33)
[2024-03-24 12:32] LABS: Glucose Point of Care 208 mg/dl (65-105)
--- NOTE | 2024-03-24 14:35 | P.PNCROSS_ITS ---
Event Note Event Note Event Note: Patient seen assessed by previous provider same day. Follow-up assessment pat ient weaned to 1 liter supplemental oxygen and states his breathing had overall improved id for multifocal issues pertaining to acute respiratory failure including CHF exacerbation, flash pulmonary edema, non STEMI, COVID. His troponins are nor trending down up and peaked at 1.62 NSTEMI may need a ischemic workup but may be ischemic demand. Started on full dose lovenox, echo pending and cardiology consulted. Acute respiratory failure with hypoxia multifocal: CHF/Flash pulmonary/NSTEMI/COVID * appears to be secondary to flash pulmonary edema but need ischemic evaluation * CXR showed pulmonary edema * BNP 6090 * ABG showing hypoxia with hypercapnia * BIPAP initially wean to NC 1L COVID * Supportive care. * Decadron 6 mg daily * remdesivir for 5 days * supplemental oxygen as needed to maintain 90% oxygen saturation * monitor LFTs daily * incentive spirometer while awake * DuoNebs * Levaquin for any underlying bacterial pneumonia * guaifenesin scheduled for cough * glucose control for steroid use * CTA pending NSTEMI Denies chest pain but with shortness of breath * serial troponins x3 q.6 hours peaked at 1.62 trending down could be due to ischemic demand * EKG without ischemic changes q.6 hours * cardiology consulted * catheterization for possible ischemic workup * Echocardiogram pending * smoking cessation * lifestyle modifications/heart healthy diet Acute on chronic diastolic heart failure/flash pulmonary edema x 1 episode * [id number] * cardiology consulted * transitioned to PO 40 lasix PO received IV lasix in ED * resumed metoprolol, ASA and Jardiance * monitor renal function during diuresis * previous echocardiogram: Diastolic grade 1 basal to mid anterior wall is hypokinetic, LVEF 55-60% severe aortic valve sclerosis and moderate aortic valve stenosis * echocardiogram pending * EKG: ST * chest x-ray Mild pulmonary edema * Lipid panel, TSH, liver function test. * Optimize Awais inhibitors, beta-blockers, ARNI Diabetes * Accu-Cheks a.c. HS * sliding scale insulin * hold oral diabetic medications * resume patient's home long-acting * Hemoglobin A1c goal less than 7 pending * lipid panel pending * Diabetic diet * consult to dietitian * encourage lifestyle modifications and weight loss * Optimize Awais inhibitors and statins. * Watch for hypoglycemia/hypoglycemic protocol ordered
--- NOTE | 2024-03-24 14:35 | PM.EVENT ---
Event Note Event Note Event Note: Patient seen assessed by previous provider same day. Follow-up assessment patient weaned to 1 liter supplemental oxygen and states his breathing had overall improved id for multifocal issues pertaining to acute respiratory failure including CHF exacerbation, flash pulmonary edema, non STEMI, COVID. His troponins are nor trending down up and peaked at 1.62 NSTEMI may need a ischemic workup but may be ischemic demand. Started on full dose lovenox, echo pending and cardiology consulted. Acute respiratory failure with hypoxia multifocal: CHF/Flash pulmonary/NSTEMI/COVID appears to be secondary to flash pulmonary edema but need ischemic evaluation CXR showed pulmonary edema BNP 6090 ABG showing hypoxia with hypercapnia BIPAP initially wean to NC 1L COVID Supportive care. Decadron 6 mg daily remdesivir for 5 days supplemental oxygen as needed to maintain 90% oxygen saturation monitor LFTs daily incentive spirometer while awake DuoNebs Levaquin for any underlying bacterial pneumonia guaifenesin scheduled for cough glucose control for steroid use CTA pending NSTEMI Denies chest pain but with shortness of breath serial troponins x3 q.6 hours peaked at 1.62 trending down could be due to ischemic demand EKG without ischemic changes q.6 hours cardiology consulted catheterization for possible ischemic workup Echocardiogram pending smoking cessation lifestyle modifications/heart healthy diet Acute on chronic diastolic heart failure/flash pulmonary edema x 1 episode [id number] cardiology consulted transitioned to PO 40 lasix PO received IV lasix in ED resumed metoprolol, ASA and Jardiance monitor renal function during diuresis previous echocardiogram: Diastolic grade 1 basal to mid anterior wall is hypokinetic, LVEF 55-60% severe aortic valve sclerosis and moderate aortic valve stenosis echocardiogram pending EKG: ST chest x-ray Mild pulmonary edema Lipid panel, TSH, liver function test. Optimize Awais inhibitors, beta-blockers, ARNI Diabetes Accu-Cheks a.c. HS sliding scale insulin hold oral diabetic medications resume patient's home long-acting Hemoglobin A1c goal less than 7 pending lipid panel pending Diabetic diet consult to dietitian encourage lifestyle modifications and weight loss Optimize Awais inhibitors and statins. Watch for hypoglycemia/hypoglycemic protocol ordered
--- NOTE | 2024-03-24 15:44 | P.CONCA_ITS ---
Assessment and Plan Assessment and plan (1) COVID: Code(s): U07.1 - COVID-19 Status: Acute Assessment and Plan: Managed by hospitalist. (2) Acute hypoxic respiratory failure: Code(s): J96.01 - Acute respiratory failure with hypoxia Status: Acute Assessment and Plan: Resolved. Probably due to covid/pneumonia/COPD. Not currently in CHF. Check CTA chest. (3) Elevated troponin: Code(s): R79.89 - Other specified abnormal findings of blood chemistry Status: Acute Assessment and Plan: Peaked at 1.6. Probably due to covid/pneumonia/COPD. Doubt ACS. 03/24/24 Echo: EF 50-55%, mild anterior hypokinesis, diastolic function not assessed, mild LVH, mod LAE, mod (RUBESN 1.1 cm2), mild-mod AI, trace pericardial effusion. (4) Aortic stenosis: Qualifiers: Cardiac valve disease etiology: nonrheumatic Qualified Code(s): I35.0 - Nonrheumatic aortic (valve) stenosis Code(s): I35.0 - Nonrheumatic aortic (valve) stenosis Status: Acute Assessment and Plan: Moderate. Stable. (5) Essential (primary) hypertension: Code(s): I10 - Essential (primary) hypertension Status: Acute Assessment and Plan: Stable. (6) PAD (peripheral artery disease): Code(s): I73.9 - Peripheral vascular disease, unspecified Status: Acute Assessment and Plan: Stable. (7) Chronic obstructive pulmonary disease: Qualifiers: COPD type: unspecified COPD Qualified Code(s): J44.9 - Chronic obstructive pulmonary disease, unspecified Code(s): J44.9 - Chronic obstructive pulmonary disease, unspecified Status: Acute History of Present Illness History of Present Illness Consult date/time: 03/24/24 15:44 Reason For Visit: Hypoxic respiratory failure Narrative: 58 yr old man who is my regular cardiology patient presents to ER with SOB. He has a history of PAD, WHITNEY (sees Dr. Hall), aortic stenosis, COPD, hypertension, DM. Reports he was sob for last couple of weeks, and was given antibiotics and he improved. Then in last few days he had cough with sputum production and more sob. He was placed on BiPAP and given Dexamethatsone with improvement in symptoms. His pulse was 80% at that time. He feels well today with no sob. His oxygen is titrated off. He did test positive for covid. Normally he is limited at walking short distance due primarily to lower back pain with numbness down his legs. He quit smoking in August 2023. Denies chest pain, orthopnea, PND, edema, dizziness, palpitations. Cardiovascular Procedures Echo/MUGA:: 08/08/23 Echo: EF 55-60%, mild LVH, grade I diastolic dysfunction (E/e' 14), mild LAE, mod (RUBENS 1.1 cm2), trace AI. 07/16/21 Echo: EF 60-65%, mild LVH, grade I diastolic dysfunction (E/e' 11), mild LAE, mild (RUBENS 1.8 cm2), mild AI, trace TR. 07/08/20 Echo: EF 60-65%, mild LVh, grade I diastolic dysfunction (E/e' 9), mild LAE, mild-mod (RUBENS 1.6 cm2), trace AI. Electrophysiology:: 08/07/23 EKG: Sinus rhythm, LAE, IRBBB, LVH, inferior infarct, age indeterminate. 07/29/20 EKG: Sinus rhythm, IRBBB. Stress Tests:: 06/30/21 CT lung: Coronary calcifications. 07/07/20 Carotid duplex: <50% stenosis bilaterally. 10/16/19 Sleep study: At least mild WHITNEY. 02/05/19 BYRON left 0.82, right 1.03. Right BP 175 and left 143 mmHg. Review of Systems 2 Review of Systems: All systems reviewed & are unremarkable except as noted in HPI and below Constitutional: Constitutional: Reports as per HPI, Denies chills, Reports fatigue and Denies fever(s) Cardiovascular: Cardiovascular: Reports as per HPI and Denies chest pain Respiratory: Respiratory: Reports as per HPI, Reports cough and Reports dyspnea Gastrointestinal: Gastrointestinal: Reports as per HPI and Denies abdominal pain Genitourinary: Genitourinary: Reports as per HPI and Denies dysuria Musculoskeletal: Musculoskeletal: Reports as per HPI Neurologic: Reports as per HPI, Denies dizziness and Denies syncope [facility] Past Medical History Medical History (Updated 03/24/24 @ 15:52 by Jus Davenport DO) Anxiety Gas bloat syndrome Acute non-recurrent maxillary sinusitis Inflamed skin tag (~05/31/23) left upper eyelid margin Abdominal pannus large abdominal pannus after 160 lb weight loss GERD with esophagitis EGD 03/02/2023 with mild chronic esophagitis on biopsy. Fall down stairs Left elbow pain COVID-19 (~11/16/22) And March 2024 Neoplasm of skin changing pigmented nevus plantar surface left foot with anticipated biopsy by clinical nurse specialist. Chronic bilateral low back pain with bilateral sciatica x-ray of the lumbar spine on 08/17/2022 reveals severe lumbar spondylosis. Polyp of colon (12/01/20) multiple , 5 tubular adenomas, polyps 12/01/2020 with recheck in 3 years. Chronic neck pain Moderate spondylosis on cervical spine x-ray in urgent care 11/27/2022. Gastro-esophageal reflux disease without esophagitis EGD on 03/02/2023 with biopsy with mild esophagitis and gastropathy. Vitamin B12 deficiency Male erectile dysfunction, unspecified Seasonal allergic rhinitis BMI 37.0-37.9, adult Mixed hyperlipidemia Cholesterol 141, triglycerides 142, HDL 34, LDL 83 with ratio 4.1 on 11/11/2022. Lumbar degenerative disc disease COVID-19 vaccine series completed Aortic stenosis Moderate aortic stenosis with trace aortic regurgitation and grade 1 diastolic dysfunction with ejection fraction 55-60% on echo 08/07/2023. Hypokinesis of the anterior left ventricle. Carotid stenosis Erythrocytosis Emphysema lung Lung nodule Tobacco abuse counseling Renal cyst Diabetes Chronic obstructive pulmonary disease Class 3 severe obesity due to excess calories with serious comorbidity and body mass index (BMI) greater than or equal to 70 in adult Patient BMI is down to 37 after losing 160 lb with diet lifestyle modification Essential (primary) hypertension Nocturnal hypoxemia due to emphysema WHITNEY (obstructive sleep apnea) failure on CPAP, treated with weight loss and repeat sleep study demonstrated improvement in obstructive sleep apnea from severe to mild Proteinuria Spinal stenosis, unspecified region other than cervical Tobacco use quit smoking on 08/05/2023. 1-1/2 packs of cigarettes daily Type 2 diabetes mellitus with diabetic peripheral angiopathy and gangrene, with long-term current use of insulin Hemoglobin A1c 5.8 on 10/28/2022. Fasting glucose 101 with hemoglobin A1c 5.5 on 11/11/2022. Surgical History Surgical History History of placement of ear tubes H/O foot surgery No significant past surgical history (~05/2018) lap cholecystectomy left carpal tunnel right carpal tunnel R ear reconstructive surgery Family History Family History Father Diabetes mellitus Heart disease Coronary artery disease Hypertension High cholesterol Mother Family history of chronic obstructive pulmonary disease Cardiac valve prolapse Grandparent Liver cancer paternal grandmother Grandparent Colon cancer paternal grandfather Social History Social History (Updated 03/24/24 @ 07:09 by Henna Byrne DO) Social History: He lives with his of 37 years. There 35-year-old son still lives with them. They also have a 30-year-old daughter who lives locally. He has been disabled due to a back injury since 2013. He used to smoke 1-1.5 packs of cigarettes per day but quit smoking in August of 2023. He smokes marijuana on a somewhat frequent basis. He denies any significant alcohol use. Code status: Full code Surrogate decision maker: Sabiha () Smoking packs per day: 1 Smoking cigarettes per day: 20.0 Years smoked: 47 Smoking pack-years: 47.00 Smoking status: Former smoker Tobacco type: cigarettes Second hand tobacco smoke exposure: Yes Smoking end date: 08/05/23 Alcohol intake: never Substance use: never Substance use type: marijuana Do You Feel Safe in your Home?: Yes Lack of Transportation: No Lack of Food: Never True Current Housing: I Have Housing Concerned About Future Housing: No Difficulty Paying Gas/Electric Bills: No Difficulty Paying for Meds: YES Currently Unemployed: No Education: Decline to Answer Difficulty w/ Childcare or Family Care: No Living arrangements: with family Gender identity (if verbalized by the patient): Male Spiritual care concerns: No Meds Home Medications and Allergies Home Medications ?Medication ?Instructions ?Recorded ?Confirmed ?Type aspirin 81 mg tablet,delayed 81 mg PO DAILY 05/27/20 03/24/24 History release cholecalciferol (vitamin D3) 125 5,000 unit PO DAILY 05/05/22 03/24/24 History mcg (5,000 unit) capsule cyanocobalamin (vitamin B-12) 1,000 mcg PO DAILY 05/05/22 03/24/24 History 1,000 mcg tablet (Vitamin B-12) fluticasone propionate 50 50 mcg intranasal DAILY 01/12/23 03/24/24 History mcg/actuation nasal spray,suspension insulin glargine U-300 conc 300 15 unit subcut DAILY 01/14/23 03/24/24 History unit/mL (1.5 mL) subcutaneous pen (Adrianutamir SoloStar U-300 Insulin) atorvastatin 40 mg tablet 40 mg PO QHS #90 tabs 06/10/23 03/24/24 Rx diltiazem HCl 240 mg 240 mg PO DAILY #90 caps 06/24/23 03/24/24 Rx capsule,extended release 24 hr (Cardizem CD) metoprolol succinate 100 mg 100 mg PO DAILY #90 tabs 07/05/23 03/24/24 Rx tablet,extended release 24 hr triamterene 37.5 1 tablet PO QAM #90 tabs 07/28/23 03/24/24 Rx mg-hydrochlorothiazide 25 mg tablet albuterol sulfate 90 mcg/actuation 1 - 2 puff inhalation Q4-6H PRN 08/05/23 03/24/24 Rx aerosol inhaler (ProAir HFA) shortness of breath or wheezing #8.5 grams lisinopril 20 mg tablet 20 mg PO QPM 08/07/23 03/24/24 History lisinopril 40 mg tablet 40 mg PO QAM 08/07/23 03/24/24 History metformin 1,000 mg tablet 500 mg PO BID 08/07/23 03/24/24 History vit C 250 mg-E 90 mg-zinc 40 1 tablet PO QAM AND QPM 08/07/23 03/24/24 History mg-copper 1 yy-zxrpcy-soxltw chew tablet (PreserVision AREDS-2) blood sugar diagnostic (Contour See Rx Instructions .Route 08/31/23 03/24/24 Rx Next Test Strips) .COMPLEX #200 strips insulin syringe-needle U-100 1 mL #200 ea 10/13/23 03/24/24 Rx 27 gauge x 5/8 (BD SafetyGlide Syringe) empagliflozin 25 mg tablet 25 mg PO DAILY #90 tabs 11/15/23 03/24/24 Rx (Jardiance) lansoprazole 30 mg capsule,delayed 30 mg PO DAILY #90 caps 12/13/23 03/24/24 Rx release buspirone 5 mg tablet 5 mg PO QHS #30 tabs 02/08/24 03/24/24 Rx pen needle, diabetic 29 gauge x See Rx Instructions .Route 03/19/24 03/24/24 Rx 1/2 (BD Ultra-Fine Original Pen .COMPLEX #300 ea Needle) furosemide 40 mg tablet 20 mg PO DAILY 03/22/24 03/24/24 History chlorhexidine gluconate 0.12 % 30 ml mucous membrane BID 03/24/24 03/24/24 History mouthwash dulaglutide 3 mg/0.5 mL 3 mg subcut WEEKLY 03/24/24 03/24/24 History subcutaneous pen injector (Trulicity) Allergies Allergy/AdvReac Type Severity Reaction Status Date / Time erythromycin base AdvReac Intermediate Gastrointestinal Verified 03/24/24 04:47 Upset tetracycline AdvReac Intermediate Gastrointestinal Verified 03/24/24 04:47 Upset Penicillins AdvReac Mild Hives Verified 03/24/24 04:47 Vital Signs Vital Signs - 24 hr 03/24/24 00:05 03/24/24 00:05 03/24/24 00:55 Temperature 98.6 F Pulse Rate 144 H 123 H Respiratory Rate 25 H 38 H 33 H Blood Pressure 166/116 H Pulse Oximetry 92 98 98 Oxygen Delivery Room Air BiPAP BiPAP Oxygen Flow Rate Fraction of Inspired Oxygen 03/24/24 01:11 03/24/24 02:26 03/24/24 03:21 Temperature Pulse Rate 118 H 108 H 102 H Respiratory Rate 18 15 19 Blood Pressure 142/96 H 132/82 120/84 Pulse Oximetry 100 100 100 Oxygen Delivery Oxygen Flow Rate Fraction of Inspired Oxygen 03/24/24 03:53 03/24/24 04:00 03/24/24 04:00 Temperature 97.4 F L Pulse Rate 98 Respiratory Rate 23 H 19 Blood Pressure 109/75 Pulse Oximetry 97 100 100 Oxygen Delivery BiPAP BiPAP Oxygen Flow Rate Fraction of Inspired Oxygen 30 03/24/24 04:00 03/24/24 04:30 03/24/24 06:00 Temperature Pulse Rate 101 H 95 Respiratory Rate Blood Pressure Pulse Oximetry 98 Oxygen Delivery Nasal Cannula Oxygen Flow Rate 1 Fraction of Inspired Oxygen 03/24/24 07:44 03/24/24 08:00 03/24/24 08:00 Temperature 97.4 F L Pulse Rate 95 97 96 Respiratory Rate 18 24 H Blood Pressure 146/71 H Pulse Oximetry 98 98 Oxygen Delivery Nasal Cannula Oxygen Flow Rate 1 Fraction of Inspired Oxygen 03/24/24 09:38 03/24/24 10:00 03/24/24 11:48 Temperature 99.3 F Pulse Rate 100 100 98 Respiratory Rate 32 H Blood Pressure 98/68 L Pulse Oximetry 94 Oxygen Delivery Oxygen Flow Rate Fraction of Inspired Oxygen 03/24/24 12:00 03/24/24 14:00 Temperature Pulse Rate 91 89 Respiratory Rate Blood Pressure Pulse Oximetry Oxygen Delivery Oxygen Flow Rate Fraction of Inspired Oxygen Exam 2 Const: General: cooperative, healthy appearing and comfortable Resp: Auscultation: no crackles, no rales, no rhonchi, no wheezes and diminished lung sounds Cardio: Rate: regular rate Rhythm: regular rhythm Heart sounds: Murmur heart sound present (III/ systolic murmur RICS) GI: GI Palp: No abdominal tenderness and Yes Soft to palpation Neuro: General: oriented to person, oriented to place and oriented to time Extrem: Right lower extremity: no edema Left lower extremity: no edema Results Labs and Meds 03/24/24 08:04 03/24/24 00:19 Lab results: Cardiac Enzymes 03/24/24 03/24/24 03/24/24 Range/Units 00:19 00:19 03:07 AST Cancelled 38 Troponin I 0.032 0.926 H* D (0.000-0.034) ng/mL 03/24/24 03/24/24 Range/Units 06:02 09:25 AST Troponin I 1.620 H* D 1.570 H* (0.000-0.034) ng/mL Coagulation 03/24/24 Range/Units 00:19 PT 13.0 (11.1-14.7) Seconds APTT 25.8 (22.3-36.8) Seconds CBC 03/24/24 03/24/24 Range/Units 00:19 08:04 WBC 23.6 H 10.6 H (4.5-10.0) K/mm3 RBC 5.42 4.99 (4.6-6.20) M/mm3 Hgb 16.0 14.8 (14.0-18.0) g/dL Hct 49.8 43.2 (42.0-52.0) % Plt Count 348 D 203 (150-375) k/mm3 Lymph # (Auto) Not Reportable Giles # (Auto) Not Reportable Eos # (Auto) Not Reportable Baso # (Auto) Not Reportable Comprehensive Metabolic Panel 03/24/24 03/24/24 03/24/24 Range/Units 00:19 00:19 00:19 Sodium Cancelled 133 L Potassium Cancelled 3.4 Chloride Cancelled Carbon Dioxide BUN Creatinine Glucose Calcium AST ALT Alkaline Phosphatase Total Protein Albumin 03/24/24 03/24/24 03/24/24 Range/Units 00:19 00:19 00:19 Sodium Potassium Chloride 98 Carbon Dioxide Cancelled 22 BUN Cancelled 20 D Creatinine Cancelled Glucose Calcium AST ALT Alkaline Phosphatase Total Protein Albumin 03/24/24 03/24/24 03/24/24 Range/Units 00:19 00:19 00:19 Sodium Potassium Chloride Carbon Dioxide BUN Creatinine 1.10 Glucose Cancelled 227 H Calcium Cancelled 8.7 AST Cancelled ALT Alkaline Phosphatase Total Protein Albumin 03/24/24 03/24/24 03/24/24 Range/Units 00:19 00:19 00:19 Sodium Potassium Chloride Carbon Dioxide BUN Creatinine Glucose Calcium AST 38 ALT Cancelled 33 Alkaline Phosphatase Cancelled 73 Total Protein Cancelled Albumin 03/24/24 03/24/24 Range/Units 00:19 00:19 Sodium Potassium Chloride Carbon Dioxide BUN Creatinine Glucose Calcium AST ALT Alkaline Phosphatase Total Protein 7.0 Albumin Cancelled 4.0 Intake and Output 03/23/24 03/24/24 03/24/24 23:59 07:59 15:59 Intake Total 240 400 Output Total 1350 Balance -1110 400 Intake: Oral 240 400 Output: Urine 1350 Patient Weight 03/24/24 23:59 Weight 115.1 kg
[2024-03-24] MEDS: REMDESIVIR 200 MG/NS 250 ML 200 MG/250 ML BAG 250 MG IVPB (15:56)
[2024-03-24 17:02] LABS: Glucose Point of Care 147 mg/dl (65-105)
[2024-03-24] MEDS: dexAMETHasone SOD PHOS INJ 4 MG/ML VIAL 6 MG IV PUSH (18:06)
[2024-03-24] MEDS: lisinopriL 20 MG TABLET PO (18:10)
[2024-03-24] MEDS: CHLORHEXIDINE GLUCONATE 0.12% ORAL RINSE 473 ML BTL (*BKC) 30 ML SWISH/SPIT (18:10)
[2024-03-24] MEDS: guaiFENesin 12 HR 600 MG TABCR 1200 MG PO (20:32)
[2024-03-24] MEDS: ATORVASTATIN 40 MG TABLET PO (20:32)
[2024-03-24] MEDS: busPIRone HCL 5 MG TABLET PO (20:32)
[2024-03-24 20:54] LABS: Glucose Point of Care 305 mg/dl (65-105)
[2024-03-25] VITALS (12 sets, daily range): BP systolic 130–153; BP diastolic 53–66; PULSE 72–87; RESP 16–20; TEMP 36.4–36.6; O2SAT 94–97
[2024-03-25] MEDS: dexAMETHasone SOD PHOS INJ 4 MG/ML VIAL 6 MG IV PUSH ×3 (00:14→13:03)
[2024-03-25] MEDS: levoFLOXacin 750 MG/D5W 150 ML 750 MG/150 ML BAG 100 MG IVPB (02:32)
[2024-03-25 04:15] LABS: Hematocrit 41.3 % (42.0-52.0); Hemoglobin 13.8 g/dL (14.0-18.0); Mean Corpuscular HGB Conc 33.4 g/dl (32-36); Mean Corpuscular Hemoglobin 29.9 pg (26-34); Mean Corpuscular Volume 89.6 fl (80-100); Mean Platelet Volume 9.9 fl (7.4-10.4); Platelet Count Result 198 k/mm3 (150-375); Red Blood Count 4.61 M/mm3 (4.6-6.20); Red Cell Distribution Width 13.8 % (11.5-14.5); White Blood Count 14.5 K/mm3 (4.5-10.0)
[2024-03-25 04:31] LABS: Alanine Aminotransferase 26 U/L (6-50); Albumin Level 3.4 g/dL (3.5-5.1); Alkaline Phosphatase 56 U/L (38-126); Anion Gap 5 mmol/L (4-12); Aspartate Amino Transferase 28 U/L (17-59); Bilirubin,Total 0.5 mg/dL (0.2-1.3); Blood Urea Nitrogen 42 mg/dL (9-20); Calcium 8.7 mg/dL (8.4-10.2); Carbon Dioxide 26 mmol/L (22-30); Chloride 101 mmol/L (98-107); Estimated CRCL calculation 74 ml/min; Estimated Glomerular Filt Rate > 60; Glucose 216 mg/dL (65-110); Magnesium 2.1 mg/dL (1.6-2.3); Potassium 3.5 mmol/L (3.4-5.0); Sodium 132 mmol/L (137-145)
[2024-03-25] MEDS: ENOXAPARIN 120 MG/0.8 ML SYRINGE 115 MG SUB-Q (05:32)
--- NOTE | 2024-03-25 07:38 | PM.PNCARD ---
Progress Note: A&P Assessment and Plan (1) COVID: Code(s): U07.1 - COVID-19 Status: Acute Assessment and Plan: Managed by hospitalist. (2) Acute hypoxic respiratory failure: Code(s): J96.01 - Acute respiratory failure with hypoxia Status: Acute Assessment and Plan: Resolved. Probably due to covid/pneumonia/COPD. Not currently in CHF. 03/24/24 CTA chest shows multifocal right lung pneumonia. No pulm embolism. No CHF. (3) Elevated troponin: Code(s): R79.89 - Other specified abnormal findings of blood chemistry Status: Acute Assessment and Plan: Peaked at 1.6. Probably due to covid/pneumonia/COPD. Doubt ACS. 03/24/24 Echo: EF 50-55%, mild anterior hypokinesis, diastolic function not assessed, mild LVH, mod LAE, mod (RUBENS 1.1 cm2), mild-mod AI, trace pericardial effusion. Decrease Lovenox to 40 mg SQ daily for DVT prophylaxis. (4) Aortic stenosis: Qualifiers: Cardiac valve disease etiology: nonrheumatic Qualified Code(s): I35.0 - Nonrheumatic aortic (valve) stenosis Code(s): I35.0 - Nonrheumatic aortic (valve) stenosis Status: Acute Assessment and Plan: Moderate. Stable. (5) Essential (primary) hypertension: Code(s): I10 - Essential (primary) hypertension Status: Acute Assessment and Plan: Stable. Increase Diltiazem 360 mg daily and stop Lisinopril 20 mg evening dose. (6) PAD (peripheral artery disease): Code(s): I73.9 - Peripheral vascular disease, unspecified Status: Acute Assessment and Plan: Stable. (7) Chronic obstructive pulmonary disease: Qualifiers: COPD type: unspecified COPD Qualified Code(s): J44.9 - Chronic obstructive pulmonary disease, unspecified Code(s): J44.9 - Chronic obstructive pulmonary disease, unspecified Status: Acute Subjective Date/time seen: 03/25/24 07:38 Interval history: Denies chest pain or sob. Exam Const: General: cooperative, healthy appearing and comfortable Orientation/consciousness: oriented to person, oriented to place and oriented to time Resp: Auscultation: no crackles, no rales, no rhonchi, no wheezes and diminished lung sounds Cardio: Rate: regular rate Rhythm: regular rhythm Heart sounds: Murmur heart sound present (III/ systolic murmur RICS) Neuro: General: oriented to person, oriented to place and oriented to time Extrem: Right lower extremity: no edema Left lower extremity: no edema Objective Data Vital Signs Vital Signs: Vital Signs - 24 hr 03/24/24 07:44 03/24/24 08:00 03/24/24 08:00 Temperature 97.4 F L Pulse Rate 95 97 96 Respiratory Rate 18 24 H Blood Pressure 146/71 H Pulse Oximetry 98 98 Oxygen Delivery Nasal Cannula Oxygen Flow Rate 1 03/24/24 09:38 03/24/24 10:00 03/24/24 11:48 Temperature 99.3 F Pulse Rate 100 100 98 Respiratory Rate 32 H Blood Pressure 98/68 L Pulse Oximetry 94 Oxygen Delivery Oxygen Flow Rate 03/24/24 12:00 03/24/24 14:00 03/24/24 16:00 Temperature Pulse Rate 91 89 80 Respiratory Rate Blood Pressure Pulse Oximetry Oxygen Delivery Oxygen Flow Rate 03/24/24 16:00 03/24/24 18:00 03/24/24 20:00 Temperature 97.5 F L Pulse Rate 77 90 Respiratory Rate 16 Blood Pressure 134/59 L Pulse Oximetry 98 96 Oxygen Delivery Nasal Cannula Oxygen Flow Rate 1 03/24/24 20:00 03/24/24 21:03 03/24/24 22:00 Temperature 97.8 F Pulse Rate 90 88 80 Respiratory Rate 16 Blood Pressure 146/80 H Pulse Oximetry 96 Oxygen Delivery Oxygen Flow Rate 03/25/24 00:00 03/25/24 00:00 03/25/24 00:05 Temperature 97.8 F Pulse Rate 80 77 Respiratory Rate 16 Blood Pressure 139/63 Pulse Oximetry 94 Oxygen Delivery Room Air Oxygen Flow Rate 03/25/24 02:00 03/25/24 04:00 03/25/24 04:00 Temperature Pulse Rate 87 79 Respiratory Rate Blood Pressure Pulse Oximetry Oxygen Delivery Room Air Oxygen Flow Rate 03/25/24 04:24 03/25/24 05:58 Temperature 97.8 F Pulse Rate 84 82 Respiratory Rate 16 Blood Pressure 130/53 L Pulse Oximetry 96 Oxygen Delivery Oxygen Flow Rate Intake/Output Intake/Output: Intake & Output 03/22/24 03/23/24 03/24/24 03/25/24 23:59 23:59 23:59 23:59 Intake Total 1280 Output Total 3350 800 Balance -2070 -800 Meds/Results Medications: Active Medications Generic Name Dose Route Start Last Admin Trade Name Freq PRN Reason Stop Dose Admin Aspirin 81 mg 03/24/24 09:00 03/24/24 09:38 Aspirin 81 Mg Enteric Tablet PO 81 mg DAILY ROSETTE Administration Atorvastatin Calcium 40 mg 03/24/24 21:00 03/24/24 20:32 Atorvastatin 40 Mg Tablet PO 40 mg QHS ROSETTE Administration Buspirone HCl 5 mg 03/24/24 21:00 03/24/24 20:32 Buspirone Hcl 5 Mg Tablet PO 5 mg QHS ROSETTE Administration Chlorhexidine Gluconate 30 ml 03/24/24 17:00 03/24/24 18:10 Chlorhexidine Gluconate 0.12% Oral Rinse 473 Ml Btl (*Bkc) SWISH/SPIT 04/05/24 09:01 30 ml BID ROSETTE Administration Cyanocobalamin 1,000 mcg 03/24/24 09:00 03/24/24 09:38 Cyanocobalamin 1,000 Mcg Tablet PO 1,000 mcg DAILY ROSETTE Administration Dexamethasone Sodium Phosphate 6 mg 03/24/24 18:00 03/25/24 05:33 Dexamethasone Sod Phos Inj 4 Mg/Ml Vial IV PUSH 6 mg Q6HR ROSETTE Administration Dextrose 12.5 gm 03/24/24 06:46 Dextrose 50% 25 Gm/50 Ml Syringe IV PUSH PRN PRN Hypoglycemia Protocol Diltiazem HCl 360 mg 03/25/24 09:00 Diltiazem Hcl Cd 180 Mg Cap.24hr PO DAILY ROSETTE Empagliflozin 25 mg 03/24/24 09:00 03/24/24 09:37 Empagliflozin 25 Mg Tablet PO 25 mg DAILY ROSETTE Administration Enoxaparin Sodium 40 mg 03/25/24 09:00 Enoxaparin 40 Mg/0.4 Ml Syringe SUB-Q DAILY ROSETTE Fluticasone Propionate 1 spray 03/24/24 09:00 03/24/24 09:41 Fluticasone Propionate 0.05% Na Spr 16 Gm Btl (*Bkc) NASAL 1 spray DAILY ROSETTE Administration Furosemide 40 mg 03/24/24 09:00 03/24/24 09:38 Furosemide 40 Mg Tablet PO 40 mg DAILY ROSETTE Administration Glucagon 1 mg 03/24/24 06:46 Glucagon For Inj 1 Mg Vial IM PRN PRN Hypoglycemia Protocol Glucose 15 gm 03/24/24 06:46 Glucose Oral Gel 15 Gm Of Glucse In 37.5 Gm Tube PO PRN PRN Hypoglycemia Protocol Guaifenesin 1,200 mg 03/24/24 21:00 03/24/24 20:32 Guaifenesin 12 Hr 600 Mg Tabcr PO 1,200 mg Q12HR ROSETTE Administration Levofloxacin/Dextrose 750 mg in 150 mls @ 100 mls/hr 03/25/24 02:00 03/25/24 02:32 Levaquin 750 Mg/D5w 150 Ml IVPB 100 mls/hr Q24H ROSETTE Administration Dextrose 1,000 mls @ 100 mls/hr 03/24/24 06:46 Dextrose 5% 1,000 Ml IVPB PRN PRN Hypoglycemia Protocol Remdesivir 100 mg in 250 mls @ 250 mls/hr 03/25/24 10:00 IVPB 03/28/24 10:59 Q24H ROSETTE Insulin Aspart 3 - 6 units 03/24/24 08:00 03/24/24 17:57 Insulin Aspart (*Bkc) 100 Units/Ml SUB-Q Not Given TIDWM ROSETTE Protocol Insulin Aspart 1 - 3 units 03/24/24 21:00 03/24/24 20:33 Insulin Aspart (*Bkc) 100 Units/Ml SUB-Q 2 units HS ROSETTE Administration Protocol Insulin Glargine 15 units 03/24/24 09:00 03/24/24 09:36 Insulin Glargine (*Bkc) 100 Units/Ml SUB-Q 15 units DAILY ROSETTE Administration Lisinopril 40 mg 03/24/24 09:00 03/24/24 09:37 Lisinopril 20 Mg Tablet PO 40 mg QAM ROSETTE Administration Metoprolol Succinate 100 mg 03/24/24 09:00 03/24/24 09:38 Metoprolol Succinate Ext Rel 100 Mg Tabcr PO 100 mg DAILY ROSETTE Administration Multivitamins/Minerals 1 tablet 03/24/24 09:00 03/24/24 20:32 Opti-Gen Tab PO 1 tablet Q12HR ROSETTE Administration Pantoprazole Sodium 40 mg 03/24/24 09:00 03/24/24 09:38 Pantoprazole 40 Mg Tablet PO 40 mg QAM ROSETTE Administration Perflutren Lipid Microsphere 0 ml 03/24/24 03:44 Perflutren Lipid Microspheres 1.5 Ml Vial Diluted To 10 Ml Total Volume IV PUSH 03/27/24 03:44 ONCE PRN adequate visualization Protocol Psyllium Hydrophilic Mucilloid 1 packet 03/24/24 10:00 03/24/24 11:30 Psyllium Powder Packet PO 1 packet QAM ROSETTE Administration Triamterene/Hydrochlorothiazide 1 tab 03/24/24 09:00 03/24/24 09:38 Triamterene 37.5 Mg/Hctz 25 Mg (Maxzide) Tablet PO 1 tab QAM ROSETTE Administration Vitamin D 5,000 units 03/24/24 09:00 03/24/24 09:38 Cholecalciferol 5,000 Units Tablet PO 5,000 units DAILY ROSETTE Administration Radiology Results: ITS Impressions Chest X-Ray 03/24/24 06:22 IMPRESSION: 1. Mild airspace opacities in all right lung zones, consistent with pneumonia versus mild pulmonary edema. Chest CTA 03/24/24 16:02 IMPRESSION: No evidence of pulmonary embolus Minimal right upper and middle lobe infiltrate, more prominent patchy right basilar infiltrate, suggesting multi-focal right pneumonia Labs Labs: Laboratory Results - last 24 hr 03/24/24 03/24/24 03/24/24 05:59 08:04 08:43 WBC 10.6 H RBC 4.99 Hgb 14.8 Hct 43.2 MCV 86.6 D MCH 29.7 MCHC 34.3 RDW 13.8 Plt Count 203 MPV 9.7 Sodium Potassium Chloride Carbon Dioxide Anion Gap BUN Creatinine Estim Creat Clear Calc Estimated GFR Glucose POC Capillary Glucose 172 H Hemoglobin A1c 6.3 H Calcium Magnesium Total Bilirubin AST ALT Alkaline Phosphatase Troponin I Total Protein Albumin 03/24/24 03/24/24 03/24/24 09:25 11:32 16:39 WBC RBC Hgb Hct MCV MCH MCHC RDW Plt Count MPV Sodium Potassium Chloride Carbon Dioxide Anion Gap BUN Creatinine Estim Creat Clear Calc Estimated GFR Glucose POC Capillary Glucose 208 H 147 H Hemoglobin A1c Calcium Magnesium Total Bilirubin AST ALT Alkaline Phosphatase Troponin I 1.570 H* Total Protein Albumin 03/24/24 03/25/24 19:53 03:50 WBC 14.5 H RBC 4.61 Hgb 13.8 L Hct 41.3 L MCV 89.6 MCH 29.9 MCHC 33.4 RDW 13.8 Plt Count 198 MPV 9.9 Sodium 132 L Potassium 3.5 Chloride 101 Carbon Dioxide 26 Anion Gap 5 BUN 42 H D Creatinine 1.20 Estim Creat Clear Calc 74 Estimated GFR > 60 Glucose 216 H POC Capillary Glucose 305 H Hemoglobin A1c Calcium 8.7 Magnesium 2.1 Total Bilirubin 0.5 AST 28 ALT 26 Alkaline Phosphatase 56 Troponin I Total Protein 6.0 L Albumin 3.4 L
[2024-03-25 08:08] LABS: Glucose Point of Care 181 mg/dl (65-105)
[2024-03-25] MEDS: INSULIN GLARGINE (*BKC) 100 UNITS/ML 15 UNITS SUB-Q (09:18)
[2024-03-25] MEDS: CHLORHEXIDINE GLUCONATE 0.12% ORAL RINSE 473 ML BTL (*BKC) 30 ML SWISH/SPIT (09:18)
[2024-03-25] MEDS: ENOXAPARIN 40 MG/0.4 ML SYRINGE SUB-Q (09:20)
[2024-03-25] MEDS: dilTIAZem HCL CD 180 MG CAP.24HR 360 MG PO (09:22)
[2024-03-25] MEDS: EMPAGLIFLOZIN 25 MG TABLET PO (09:22)
[2024-03-25] MEDS: lisinopriL 20 MG TABLET 40 MG PO (09:22)
[2024-03-25] MEDS: PANTOPRAZOLE 40 MG TABLET PO (09:22)
[2024-03-25] MEDS: guaiFENesin 12 HR 600 MG TABCR 1200 MG PO (09:23)
[2024-03-25] MEDS: METOPROLOL SUCCINATE EXT REL 100 MG TABCR PO (09:24)
[2024-03-25] MEDS: CYANOCOBALAMIN 1,000 MCG TABLET 1000 MCG PO (09:24)
[2024-03-25] MEDS: CHOLECALCIFEROL 5,000 UNITS TABLET 5000 UNITS PO (09:24)
[2024-03-25] MEDS: OPTI-GEN TAB 1 TABLET PO (09:25)
[2024-03-25] MEDS: FUROSEMIDE 40 MG TABLET PO (09:25)
[2024-03-25] MEDS: PSYLLIUM POWDER PACKET 1 PACKET PO (09:25)
[2024-03-25] MEDS: ASPIRIN 81 MG ENTERIC TABLET PO (09:25)
[2024-03-25] MEDS: FLUTICASONE PROPIONATE 0.05% NA SPR 16 GM BTL (*BKC) 1 SPRAY NASAL (09:26)
[2024-03-25] MEDS: TRIAMTERENE 37.5 MG/HCTZ 25 MG (MAXZIDE) TABLET 1 TAB PO (09:26)
[2024-03-25] MEDS: REMDESIVIR 100 MG/NS 250 ML 100 MG/250 ML BAG 250 MG IVPB (10:30)
[2024-03-25 11:40] LABS: Glucose Point of Care 247 mg/dl (65-105)
[2024-03-25] MEDS: INSULIN ASPART (*BKC) 100 UNITS/ML SUB-Q (13:03)
--- NOTE | 2024-03-25 13:49 | P.DS_ITS ---
DS: Admitting Diagnosis Discharge Date 03/25/2024 Admitting Diagnosis Acute respiratory failure with hypoxia and hypercapnia secondary to pneumonia/flash pulmonary edema/COVID-19 DS: Discharge Diagnosis Discharge Diagnosis (1) Acute respiratory failure with hypoxia and hypercapnia: Code(s): J96.01 - Acute respiratory failure with hypoxia; J96.02 - Acute respiratory failure with hypercapnia Status: Acute Assessment and Plan: * Weaned from Bipap to room air * supportive care for COVID (2) Flash pulmonary edema: Code(s): J81.0 - Acute pulmonary edema Status: Acute Assessment and Plan: * Resolved with IV lasix * Increased oral ;asix to 40mg daily from 20mg (3) Pneumonia: Qualifiers: Laterality: bilateral Lung location: lower lobe of lung Pneumonia type: due to unspecified organism Qualified Code(s): J18.9 - Pneumonia, unspecified organism Code(s): J18.9 - Pneumonia, unspecified organism Status: Acute Assessment and Plan: * Discharged on oral Levaquin (4) COVID: Code(s): U07.1 - COVID-19 Status: Acute Assessment and Plan: * Got one dose decadron and remdesivir * Acetaminophen for pain at home for fever and mild pain * Oral hydration * Isolation * Incentive spirometer (5) Leukocytosis: Qualifiers: Leukocytosis type: leukemoid reaction Qualified Code(s): D72.823 - Leukemoid reaction Code(s): D72.829 - Elevated white blood cell count, unspecified Status: Acute (6) Elevated troponin: Code(s): R79.89 - Other specified abnormal findings of blood chemistry Status: Acute Assessment and Plan: * Evaluated by cardiology ischemic demand * And follow-up with Cardiology outpatient as scheduled Plan Disposition: Discharged to home DS: Summary Hospital Course Reason for hospitalization: acute respiratory failure with hypoxia and hypercapnia secondary to pneumonia/flash pulmonary edema/COVID-19 Hospital Course: patient was a 58-year-old male who was admitted to the medical unit for further evaluation and treatment of acute respiratory failure with hypoxia and hypercapnia. It appeared patient had went into flash pulmonary edema while at a gas station and had difficulty breathing EMS was called and gave an initial dose of IV Lasix EN route as well as DuoNebs. 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 ABGs in the emergency department were showing acute respiratory failure with hypoxia and hypercapnia he was then placed on BiPAP but quickly was able to wean off and go on to nasal cannula after IV Lasix. He also initially had elevated troponins that peaked at 1.62 but trended down this was likely secondary to ischemic demand from CHF exacerbation and hypertension his initial BP on arrival was 232/150. His initial EKG demonstrated atrial tachycardia with significant baseline artifact rate of 130 incomplete right bundle-branch block. Repeat EKG demonstrated sinus tachycardia rate 110 with moderate T-wave abnormality 1 aVL into a lesser extent V5 and V6 the patient denied having any chest pain at any time. patient in the emergency department was also found to be COVID positive which was likely the contributing factor to most of his symptoms. Due to patient's initial presentation I did in itiate patient on remdesivir and Decadron at which time he received 1 dose of each. patient was given IV Levaquin and azithromycin for potential underlying bacterial pneumonia. Patient with complete improvement following day was on room air in no respiratory distress was seen by Cardiology who at this time do not believe this was an ACS event rather ischemic demand. a CTA scan had been completed in the emergency department and was negative for PE but did show a minimal right upper and middle lobe infiltrate. patient remained afebrile blood cultures negative, initially did a normal WBC that bumped to 14.5 but this was likely secondary to steroid administration. patient denied any further chest pain incomplete improvement to his shortness of breath he was discharged on oral antibiotics for pneumonia and supportive care for COVID-19 including acetaminophen for fever and mild pain. he was encouraged to follow- up with his primary care physician as well as Cardiology outpatient patient acknowledged and agreed with discharge plan and he was discharged to home Time Spent with Patient Time attestation: Total time spent providing and/or coordinating discharge services: Exam Narrative: * GENERAL: Alert and oriented x 3. No acute distress. * EYES: EOMI. No scleral icterus. PERRLA. * HEENT: Moist mucous membranes. * LUNGS: Clear to auscultation bilaterally. No accessory muscle use. * CARDIOVASCULAR: Regular rate and rhythm. No murmur. No JVD. S1-S2 * ABDOMEN: Soft, non tenderness and non-distended. No palpable masses. * EXTREMITIES: No edema. Non-tender * SKIN: No rashes or lesions. Skin warm, dry. * NEUROLOGIC: No focal neurological deficits. CN II-XII grossly intact * PSYCHIATRIC: Appropriate mood and affect. Good judgement and insight. No visual or auditory hallucinations. No suicidal or homicidal ideation. DS: Data Data Completed and Pending Labs on day of discharge: Labs from last 24 hours 03/25/24 03/25/24 03/25/24 11:15 07:59 03:50 WBC 14.5 H RBC 4.61 Hgb 13.8 L Hct 41.3 L MCV 89.6 MCH 29.9 MCHC 33.4 RDW 13.8 Plt Count 198 MPV 9.9 Sodium 132 L Potassium 3.5 Chloride 101 Carbon Dioxide 26 Anion Gap 5 BUN 42 H D Creatinine 1.20 Estim Creat Clear Calc 74 Estimated GFR > 60 Glucose 216 H POC Capillary Glucose 247 H 181 H Calcium 8.7 Magnesium 2.1 Total Bilirubin 0.5 AST 28 ALT 26 Alkaline Phosphatase 56 Total Protein 6.0 L Albumin 3.4 L 03/24/24 03/24/24 19:53 16:39 WBC RBC Hgb Hct MCV MCH MCHC RDW Plt Count MPV Sodium Potassium Chloride Carbon Dioxide Anion Gap BUN Creatinine Estim Creat Clear Calc Estimated GFR Glucose POC Capillary Glucose 305 H 147 H Calcium Magnesium Total Bilirubin AST ALT Alkaline Phosphatase Total Protein Albumin Preliminary micro results at discharge 03/24/24 08:12 Blood Culture - Preliminary Blood 03/24/24 08:05 Blood Culture - Preliminary Blood Imaging Radiologist's impression: EXAMINATION: CTA chest PE protocol DATE: 03/24/2024 15:41 INDICATION: Shortness of breath. Elevated troponin. TECHNIQUE: Computed tomography angiography (CTA) of the chest was performed with 100 mL Omnipaque-350 intravenous contrast timed to evaluate the pulmonary arteries. Coronal maximum intensity projection 3D-reconstructions were created by the technologist. Automated exposure control and iterative reconstruction technique were employed. Exam dose: 947.29 mGy-cm total exam DLP. COMPARISON: 03/24/2024 portable AP chest 09/12/2023 CT lung screening 12/05/2018 CT chest FINDINGS: There is no evidence of pulmonary embolus. Stable 1.3 cm right apical nodule since 12/05/2018. There is minimal posterior segment right upper lobe infiltrate and minimal focal infiltrate in the middle lobe, particularly the posteromedial aspect. More prominent patchy infiltrate is noted in the basilar right lower lobe, suggesting pneumonia or aspiration pneumonitis. The left lung is clear. There is thoracic aortic arch calcification but no thoracic aortic aneurysm or dissection is detected. Aortic valve calcification. Left pain, anterior descending and circumflex coronary artery calcification. Borderline heart size. No pericardial effusion. No hilar or mediastinal mass lesion or lymphadenopathy. Status post cholecystectomy. Normal morphology of the adrenal glands. Probable 2.3 cm upper pole left renal cyst. No suspicious osteolytic or osteoblastic lesions. IMPRESSION: No evidence of pulmonary embolus Minimal right upper and middle lobe infiltrate, more prominent patchy right basilar infiltrate, suggesting multi-focal right pneumonia Discharge Plan Discharge Attending physician on discharge: Yordy Linder Consulting providers: Jus Davenport; Micheal Mckoy; Quincy Menjivar; Orville Echevarria V. Discharging Clinician: Marj Stevenson Anticipated Discharge Date/Time: 03/25/24 13:40 Patient Disposition: Home, Self-Care Activity: may shower, unlimited and as tolerated Diet: heart healthy and diabetic Discharge Instructions: You are being discharge after treatment for Pneumonia, pulmonary edema, and COVD. Pneumonia: * I have prescribed oral antibiotics please take as prescribed * continue to use your incentive spirometer * Acetaminophen for mild pain and fever * Encourage oral hydration * Activity as tolerated COVID: * Continue with supportive care treat the symptoms * Acetaminophen for mild pain fevers * Oral hydration * Activity as tolerated * Isolation precautions * Monitor for worsening her respiratory distress to include shortness of breath or difficulty breathing if you experience these please seek medical attention Flash Pulmonary * You may have experienced episode of flash pulmonary edema at which time IV Lasix a diuretic was given with complete relief. Your evaluated by Cardiology with no concerns of acute exacerbation of CHF at time of admission or acute coronary syndrome. I do recommend continued follow-up with your auth specialist as scheduled outpatient I provided information on your diagnosis attached to this discharge summary please review for educational purposes. How can you care for yourself at home? ? Keep track of any new symptoms or changes in your symptoms. ? Rest until you feel better. ? Be safe with medicines. Take your medicines exactly as prescribed. Call your doctor if you think you are having a problem with your medicine. ? Do not drive after taking a prescription pain medicine. ? Ensure to follow-up with primary care physician as indicated and provide updated medication list provided to you at discharge. When should you call for help? Call 911 anytime you think you may need emergency care. For example, call if: ? You passed out (lost consciousness). Call your doctor now or seek immediate medical care if: ? You have new symptoms like fever, difficulty breathing, Chest pain, vomiting, or rash. ? You have new or different pain. ? You are confused and are having trouble thinking clearly. ? Your symptoms are getting worse. Watch closely for changes in your health, and be sure to contact your doctor if: ? You do not get better as expected. Patient Instructions: Antibiotic Form, Pulmonary Edema (DC), Bacterial Pneumonia (DC), COVID-19 (Coronavirus Disease 2019) (DC), COVID-19 and Chronic Health Conditions (DC), How to Recover from COVID-19 at Home (ED), Social Distancing Guidelines for COVID-19 (DC) Patient Language: Libyan Stand Alone Forms: General Discharge Information Follow-up/Referrals: Jus Davenport DO [Physician] - Keep Reg. Scheduled Appt. UNKNOWN,DOCTOR [Primary Care Provider] - 4 Weeks Discharge Medications: New furosemide 40 mg Tablet 40 mg PO DAILY Qty: 30 0RF guaifenesin [Mucus Relief ER] 600 mg Tablet Extended Release 12hr 1,200 mg PO Q12HR Qty: 14 0RF levofloxacin 750 mg tablet 750 mg PO DAILY Qty: 7 0RF Continued cyanocobalamin (vitamin B-12) [Vitamin B-12] 1,000 mcg tablet 1,000 mcg PO DAILY cholecalciferol (vitamin D3) 125 mcg (5,000 unit) capsule 5,000 unit PO DAILY lansoprazole 30 mg capsule,delayed release(DR/EC) 30 mg PO DAILY Qty: 90 1RF fluticasone propionate 50 mcg/actuation spray,suspension 50 mcg intranasal DAILY aspirin 81 mg Tablet,Delayed Release (Dr/Ec) 81 mg PO DAILY insulin glargine U-300 conc [Toujeo SoloStar U-300 Insulin] 300 unit/mL (1.5 mL) insulin pen 15 unit subcut DAILY Rx Instructions: INJECT 30 UNITS SUBCUTANEOUSLY DAILY PreserVision AREDS-2 250-90-40-1 mg Tablet,Chewable 1 tablet PO QAM AND QPM metformin 1,000 mg tablet 500 mg PO BID lisinopril 40 mg tablet 40 mg PO QAM Rx Instructions: 40 mg orally in AM Trulicity 3 mg/0.5 mL pen injector 3 mg subcut WEEKLY Rx Instructions: Weekly on Mondays chlorhexidine gluconate 0.12 % mouthwash 30 ml mucous membrane BID Rx Instructions: x15 days , started 03/21 atorvastatin 40 mg tablet 40 mg PO QHS Qty: 90 3RF metoprolol succinate 100 mg tablet extended release 24 hr 100 mg PO DAILY Qty: 90 3RF triamterene-hydrochlorothiazid 37.5-25 mg tablet 1 tablet PO QAM Qty: 90 3RF albuterol sulfate [ProAir HFA] 90 mcg/actuation HFA aerosol inhaler 1 - 2 puff INHALATION Q4-6H PRN (Reason: shortness of breath or wheezing) Qty: 8.5 2RF Contour Next Test Strips Strip See Rx Instructions .ROUTE .COMPLEX Qty: 200 11RF Dose Instruction: USE TO CHECK BLOOD SUGAR 3 TIMES DAILY Rx Instructions: USE TO CHECK BLOOD SUGAR 3 TIMES DAILY (DME) BD SafetyGlide Syringe 1 mL 27 gauge x 5/8 syringe See Rx Instructions .Route Qty: 200 11RF Rx Instructions: use 6 times daily with insulin Jardiance 25 mg tablet 25 mg PO DAILY Qty: 90 3RF buspirone 5 mg tablet 5 mg PO QHS Qty: 30 5RF pen needle, diabetic [BD Ultra-Fine Orig Pen Needle] 29 gauge x 1/2 needle See Rx Instructions .ROUTE .COMPLEX Qty: 300 3RF Dose Instruction: USE 1 PEN NEEDLE FOUR TIMES DAILY WITH INSULIN PEN Rx Instructions: USE 1 PEN NEEDLE FOUR TIMES DAILY WITH INSULIN PEN Discontinued furosemide 40 mg tablet 20 mg PO DAILY No Action diltiazem HCl 360 mg capsule,extended release 24 hr 360 mg PO DAILY Qty: 30 5RF Date of admission: 03/24/24 02:16 Primary Care Provider: UNKNOWN,DOCTOR Admitting Provider: Henna Byrne Attending physician on admission: Marj Stevenson Condition: Stable Quality -Patient's previous records reviewed on admission -ER notes reviewed in detail on admission -discussed all findings and current treatment plan with patient/Family/POA -Consultations reviewed for recommendations -Patient's disposition for safe discharge discussed with manager case management Dictation performed by [employer] direct speech recognition software, therefore retail service lead merchandiser variants and typographical errors may occur. Hospitalist MIPS Heart Failure (Exclusion) Patient has history of Heart Transplant or Left Ventricular Assistive Device?: No IF YES, STOP HERE Heart Failure (Qualifier) Patient has current or prior documentation of LVEF less than or equal to 40%, or mod/servere depressed LVSF?: No IF NO, STOP HERE
--- OUTSIDE RECORDS SUMMARY | 2024-03-31 02:14 | XMS_ITS | Continuity of Care Document ---
Author Organization [facility] Address [address] [place] [id number] Encounter [facility] Financial Number [id number] Date(s): 09/15/21 - 09/15/[address] [id number] Discharge Disposition: Home or Self Care Attending Physician: Randy Sales MD Admitting Physician: Randy Sales MD Referring Physician: Randy Sales MD
--- OUTSIDE RECORDS SUMMARY | 2024-03-31 02:14 | XMS_ITS | Continuity of Care Document ---
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
== END 2024-03-25 15:30 | disposition home or self-care (01) | DRG 193 ==
LOC: ANHED 02:14 → ANHIMU 03:09
PROVIDERS: Admitting Provider Internal Medicine; Emergency Provider Emergency Medicine; Visit Provider Nurse Practitioner Family
DX: J18.9 Pneumonia, unspecified organism (principal); I50.33 Acute on chronic diastolic (congestive) heart failure; J81.0 Acute pulmonary edema; U07.1 COVID-19; J96.01 Acute respiratory failure with hypoxia; J96.02 Acute respiratory failure with hypercapnia; J44.0 Chronic obstructive pulmonary disease with (acute) lower respiratory infection; D72.823 Leukemoid reaction; E78.2 Mixed hyperlipidemia; E66.01 Morbid (severe) obesity due to excess calories; E11.51 Type 2 diabetes mellitus with diabetic peripheral angiopathy without gangrene; E11.65 Type 2 diabetes mellitus with hyperglycemia; I11.0 Hypertensive heart disease with heart failure; I35.0 Nonrheumatic aortic (valve) stenosis; G47.33 Obstructive sleep apnea (adult) (pediatric); J43.9 Emphysema, unspecified; K21.9 Gastro-esophageal reflux disease without esophagitis; R79.89 Other specified abnormal findings of blood chemistry; Z79.82 Long term (current) use of aspirin; Z87.891 Personal history of nicotine dependence; Z79.4 Long term (current) use of insulin; Z79.84 Long term (current) use of oral hypoglycemic drugs; Z88.0 Allergy status to penicillin; Z68.37 Body mass index [BMI] 37.0-37.9, adult
CPT/HCPCS: 36415; 36600; 71045; 71275; 80053; 82805; 82948; 83036; 83690; 83735; 83880; 84145; 84484; 85018; 85025; 85027; 85610; 85730; 87040; 87637; 93005; 93306; 96374; 99285; A4248; A9270; J0248; J1100; J1650; J1815; J1940; J1956; Q9967

== ENCOUNTER → 2024-04-11 15:14 | Outpatient (CLI) | payer OTHER, SELFPAY ==
--- NOTE | ~2024-04-11 | XR_ITS ---
XR chest 2V Ordering provider: Cassandra Sargent NP History: 58 years Male with . cough, pneumonia,covid,edema dec former smoker . Comparison: March 24, 2024 FINDINGS: MEDIASTINUM: The cardiac silhouette is not enlarged. Congestive teresa. LUNGS: No effusions or pneumothorax. Minimal opacification in the left lung base which may indicate pneumonia. Follow-up advised. OTHER: No free air under the diaphragm. IMPRESSION: Minimal opacification the left lung base which may indicate residual pneumonia. Follow-up advised. Reviewed, dictated and finalized at location A. CAL SCIENTIST
== END ==
LOC: EXPTRAD 15:15
PROVIDERS: PCP Nurse Practitioner Family; Visit Provider Nurse Practitioner Family
DX: R91.8 Other nonspecific abnormal finding of lung field (principal)
CPT/HCPCS: 71046

== ENCOUNTER → 2024-05-04 10:14 | Outpatient (CLI) | payer OTHER, SELFPAY ==
--- NOTE | ~2024-05-04 | XR_ITS ---
EXAMINATION: XR chest 2V 05/04/2024 10:42 INDICATION: Pneumonia PROCEDURE: 2 view chest COMPARISON: Comparison to multiple prior studies sequentially, with oldest reviewed study dated 10/24. FINDINGS: The lungs are clear. The cardiomediastinal silhouette is within normal limits. There are no pleural effusions. There is no pneumothorax suspected. IMPRESSION: 1: NO ACUTE CARDIOPULMONARY DISEASE. Reviewed, dictated and finalized at location A. KOL OPERATOR
--- OUTSIDE RECORDS SUMMARY | 2024-05-04 10:30 | XMS_ITS | Clinical Summary ---
Author Organization [facility] Address [address] [place] [id number] Phone Care Team Providers Care Gamma Facilities Operator Name Role Phone Julio Puentes MD Primary Care Provider [phone] Allergies Active Allergy Reactions Criticality Noted Date Comments Erythromycin 10/02/2018 Penicillamine 03/05/2019 Other reaction(s): Unknown Penicillins 10/02/2018 Tetracycline 10/02/2018 Medications Medication Sig Dispensed Refills Start Date End Date Status insulin lispro (HumaLOG) 100 UNIT/ML injection Inject under the skin 3 (three) times a day before meals Active metFORMIN (GLUCOPHAGE) 1000 MG tablet Take 1,000 mg by mouth 2 (two) times a day with meals Active atorvastatin (LIPITOR) 40 MG tablet Take 40 mg by mouth 1 (one) time each day Active triamterene-hydroCH LOROthiazide (DYAZIDE) 37.5-25 MG per capsule Take 1 capsule by mouth 1 (one) time each day in the morning Active choline fenofibrate (TRILIPIX) 135 MG capsule Take 135 mg by mouth 1 (one) time each day Active Empagliflozin 25 MG tablet Take by mouth Active albuterol HFA (PROVENTIL HFA;VENTOLIN HFA) 108 (90 Base) MCG/ACT inhaler Inhale 2 puffs every 6 (six) hours if needed Active mometasone-formoter ol (DULERA 100) 100-5 MCG/ACT inhaler Inhale 2 puffs 2 (two) times a day Active fluticasone (FLONASE) 50 MCG/ACT nasal spray Administer 1 spray into each nostril 2 (two) times a day Shake gently. Before first use, prime pump. After use, clean tip and replace cap. Active ALPRAZolam (XANAX) 0.25 MG tablet Take 0.25 mg by mouth once Take before MRI Active TOUJEO SOLOSTAR 300 UNIT/ML solution pen-injector 03/31/2019 Active traMADol-acetaminop hen (ULTRACET) 37.5-325 MG per tablet 03/10/2019 Active omeprazole (PriLOSEC) [address] capsule 03/14/2019 Active Azelastine HCl 137 MCG/SPRAY solution 03/05/2019 Active aspirin EC 81 MG EC tablet 81 mg daily Active HYDROcodone-acetami nophen (NORCO) 5-325 MG per tablet 03/14/2019 Activ e amLODIPine (NORVASC) 10 MG tablet 08/07/2019 Active metoprolol succinate XL (TOPROL-XL) 100 MG 24 hr tablet Take 100 mg by mouth 1 (one) time each day Active Cholecalciferol (VITAMIN D3) 125 MCG (5000 UT) capsule Take by mouth Active Contour Next Test test strip USE TO CHECK BLOOD SUGAR 3 TIMES DAILY 02/06/2020 Active UltiCare Pen [place] 29G X 12.7MM misc USE 1 PEN NEEDLE ONCE DAILY WITH INSULIN PEN 02/19/2020 Active insulin syringe-needle U-100 (SURE COMFORT INS SYR 1CC/29G) 29G X 1/2 1 ML misc 12/11/2018 Active Trulicity 3 MG/0.5ML solution pen-injector INJECT 3 MG (0.5 ML) UNDER THE SKIN WEEKLY 06/29/2021 Active sildenafil (VIAGRA) 100 MG tablet Take 100 mg by mouth 1 (one) time each day if needed 07/21/2021 Active lisinopril (PRINIVIL) 40 MG tablet TAKE 1 TABLET BY MOUTH TWICE A DAY 180 tablet 3 01/09/2022 Active Active Problems Problem Noted Date Diagnosed Date Erythrocytosis 04/28/2020 Persistent proteinuria 10/02/2018 Smoker 10/02/2018 Diabetes mellitus with renal manifestations, type II or unspecified type, uncontrolled 08/18/2013 Overview (10/02/2018): DMII WO CMP NT ST UNCNTR Immunizations Name Administration Dates Next Due Influenza TIV (IM) 02/03/2022(Deferred: Patient Refused),01/22/2021(Deferred: Patient Refused) Tdap 10/05/2021 Family History Medical History Relation Comments Kidney disease Neg Hx Social History Tobacco Use Types Packs/Day Years Used Date Smoking Tobacco: Heavy Smoker Cigarettes Smokeless Tobacco: Never Alcohol Use Standard Drinks/Week Comments Not Currently 0 (1 standard drink = 0.6 oz pur e alcohol) Sex and Gender Information Value Date Recorded Sex Assigned at Not on file Gender Identity Not on file Sexual Orientation Not on file Last Filed Vital Signs Vital Sign Reading Time Taken Comments Blood Pressure 138/70 02/03/2022 11:18 AM CDT Pulse 72 02/03/2022 11:18 AM CDT Temperature 36.2 ??C (97.1 ??F) 02/03/2022 11:18 AM C DT Respiratory Rate - - Oxygen Saturation - - Inhaled Oxygen Concentration - - Weight 117 kg (259 lb) 02/03/2022 11:18 AM CDT Height 172.7 cm (5' 8 ) 02/03/2022 11:18 AM CDT Body Mass Index 39.38 02/03/2022 11:18 AM CDT Plan of Treatment Health Maintenance Due Date Last Done Comments Diabetic Foot Exam 08/18/1973 Ophthalmology Exam 08/18/1973 Pneumococcal PPSV23 Medium Risk Adult (1 of 1 - PPSV23 ) 08/18/1982 Influenza Vaccine (#1) 2023 Care Teams Gamma Facilities Operator Relationship Specialty Start Date End Date Julio Puentes MD [address] [place] [id number] PCP - General Family Medicine 10/02/18
--- OUTSIDE RECORDS SUMMARY | 2024-05-04 10:30 | XMS_ITS | Patient Health Summary ---
Author Organization [facility] Address [address] [place] [address] Care Team Providers Care Scholastic Aptitude Test Grader Name Role Phone Julio Puentes MD Primary Care Provider [phone] Note from [facility],non-owned Affiliates and Associated Physician Practices is amultiple site organization consisting of ambulatory clinics and hospital sitesin [place], [place], [place] and [place]. This disclosure is being madepursuant to the Care Everywhere program and may not contain all information available regarding this patient. Last updated 17.[facility] Social History Tobacco Use Types Packs/Day Years Used Date Smoking Tobacco: Never Assessed Sex and Gender Information Value Date Recorded Sex Assigned at Not on file Gender Identity Not on file Sexual Orientation Not on file Care Teams Scholastic Aptitude Test Grader Relationship Specialty Start Date End Date Julio Puentes MD [address] [place] [id number] PCP - General Internal Medicine 02/23/19
--- OUTSIDE RECORDS SUMMARY | 2024-05-04 10:30 | XMS_ITS | Referral Summary ---
Author Organization [facility] [address] [facility] [place] Address [address] [place] [address] Care Team Providers Care Shot Polisher Name Role Phone Cain Mendoza MD Primary Care Provider [phone] Encounters Date Type Department Care Team Description 04/25/2024 Telephone [facility] Diabetes and Endocrinology [address] [place] [phone] Kaitlynn Vivas NP PCP Callback Request - Patient 03/21/2024 Telephone [facility] Diabetes and Endocrinology [address] [place] [phone] Dania Escoto MD Med Management ([facility]) from Last 3 Months Allergies Active Allergy Reactions Criticality Noted Date Comments Erythromycin Other (See comments) Low 10/02/2018 Penicillamine Unknown 03/05/2019 Penicillins Rash Medium 10/02/2018 Tetracycline Other (See comments) Low 10/02/2018 Medications albuterol HFA (PROVENTIL HFA,VENTOLIN HFA,PROAIR HFA) 90 mcg/actuation inhaler Inhale 2 puffs every 6 hours as needed Active aspirin (ASPIR-81) 81 mg enteric coated tablet 1 tablet (81 mg total) daily Active atorvastatin (LIPITOR) 40 mg tablet Active fenofibrate choline (TRILIPIX) 135 mg capsule Active lisinopril (PRINIVIL,ZES TRIL) 40 mg tablet Active metFORMIN (GLUCOPHAGE) 1,000 mg tablet Take 1 tablet (1,000 mg total) by mouth 2 (two) times a day with meals Active SURE COMFORT INSULIN SYRINGE 1 mL 29 gauge x 1/2 syringe Active TRIAMTERENE-H YDROCHLOROTHI AZIDE 37.5-25 mg per tablet Active fluticasone propionate (FLONASE) 50 mcg/actuation nasal sprayIndicati ons:Chronic seasonal allergic rhinitis Administer 1 spray into each nostril daily 16 g 3 Active cholecalcifer ol (VITAMIN D-3) 5,000 unit capsule Take by mouth Act kathia cyclobenzapri ne (FLEXERIL) 10 mg tablet Take by mouth 2 (two) times a day as needed Active dilTIAZem CD 240 mg 24 hr capsule Take 1 capsule (240 mg total) by mouth daily Active BD Ultra-Fine Orig Pen Needle 29 gauge x 1/2 needle USE 1 PEN NEEDLE FOUR TIMES DAILY WITH INSULIN PEN Active insulin glargine (TOUJEO) 300 unit/mL (1.5 mL) pen for injection Inject 20 Units under the skin every morning 3 mL Active Additional Information Patient taking differently: 10 Unitssubcutaneous Every morning, Reported on 09/14/2023 furosemide (LASIX) 40 mg tablet Take 1 tablet (40 mg total) by mouth every morning Active metoprolol XL (TOPROL-XL) 100 mg 24 hr tablet Take 1 tablet (100 mg total) by mouth daily Active empagliflozin (JARDIANCE) 25 mg tabletIndicat ions:Type 2 diabetes mellitus with hyperglycemia , with long-term current use of insulin (HCC) Take 1 tablet (25 mg total) by mouth daily 14 tablet Active clindamycin (CLEOCIN) 300 mg capsule Active dicyclomine (BENTYL) 20 mg tablet Take 1 tablet (20 mg total) by mouth 2 (two) times a day Active lansoprazole (PREVACID) 30 mg capsule Take 1 capsule (30 mg total) by mouth 2 (two) times a day Active busPIRone (BUSPAR) 5 mg tablet PLEASE SEE ATTACHED FOR DETAILED DIRECTIONS Active cefdinir (OMNICEF) 300 mg capsule Take 1 capsule (300 mg total) by mouth every 12 (twelve) hours 024 Active empagliflozin (JARDIANCE) 25 mg tablet Take 1 tablet (25 mg total) by mouth daily 14 tablet Active dulaglutide (Trulicity) 4.5 mg/0.5 mL pen injector Inject 0.5 mL (4.5 mg total) under the skin every 7 days 2 mL 3 024 Active blood glucose diagnostic stripIndicati ons:Type 2 diabetes mellitus with diabetic peripheral angiopathy with gangrene, unspecified whether remote computer terminal operator insulin use (HCC) One Touch Ultra Test Strips Check blood sugar twice daily Dx: E11.52 100 strip 11 025 Active blood-glucose meter miscIndicatio ns:Type 2 diabetes mellitus with diabetic peripheral angiopathy with gangrene, unspecified whether remote computer terminal operator insulin use (HCC) One touch Ultra Meter Check blood sugar twice daily Dx: E11.52 1 each 025 Active CONTOUR NEXT TEST STRIPS strip 019 2024 Discontinued blood glucose diagnostic stripIndicati ons:Type 2 diabetes mellitus with diabetic peripheral angiopathy with gangrene, unspecified whether fdc insulin use (HCC) One Touch Ultra Test Strips Check blood sugar twice daily Dx: E11.52 100 strip 11 025 2024 Discontinued(R eorder) blood-glucose meter miscIndicatio ns:Type 2 diabetes mellitus with diabetic peripheral angiopathy with gangrene, unspecified whether fdc insulin use (HCC) One touch Ultra Meter Check blood sugar twice daily Dx: E11.52 1 each 025 2024 Discontinued(R eorder) Active Problems Problem Noted Date Diagnosed Date Hypertension associated with type 2 diabetes deedee litus 02/10/2023 Assessment & Plan (09/14/2023 10:10 AM CDT): Chronic problem, improved on recheck. Continue lisinopril, metoprolol, Maxzide, furosemide, diltiazem. Assessment & Plan (06/02/2023 12:31 PM MUSIC EXECUTIVE): Chronic, well-controlled. Continue lisinopril Assessment & Plan (02/10/2023 10:37 AM MUSIC EXECUTIVE): Chronic problem. Elevated upon arrival today. Currently taking Lisinopril 40mg, metoprolol XL 100mg daily, triamterene-HCTZ 37.5-25mg. Class 2 severe obesity due t o excess calories with serious comorbidity and body mass index (BMI) of 35.0 to 35.9 in adult 02/10/2023 Assessment & Plan (02/10/2023 3:18 PM MUSIC EXECUTIVE): Actively working on weight loss. Difficulty w/exercise d/t chronic back pain. Discussed healthy diet and importance of regular physical activity (20- 30min/day, 150min/wk). Hyperlipidemia associated with type 2 diabetes cal epstein 10/28/2022 Assessment & Plan (01/10/2024 1:15 PM CDT): Chronic, stable. Update lipid profile. Continue statin therapy with atorvastatin 40 mg daily Assessment & Plan (09/14/2023 10:10 AM CDT): Chronic problem. On statin therapy, no changes. Assessment & Plan (06/02/2023 12:31 PM MUSIC EXECUTIVE): Chronic, stable. Continue combination therapy of atorvastatin 40 mg daily with fenofibrate Diet and exercise advised Assessment & Plan (02/10/2023 10:38 AM MUSIC EXECUTIVE): Chronic problem. Near goal on current Atorvastatin 40mg & fenofibrate 135mg. Last lipid panel: 10/28/22 LDL=84, LA=687. Assessment & Plan (10/28/2022 3:49 PM CDT): LDL goal under 80 Update lipid profile Continue atorvastatin 40 mg daily Persistent proteinuria 10/02/2018 Chronic mastoiditis, right ear 01/25/2018 Conductive hearing loss of l eft ear with unrestricted hearing of right ear 10/06/2017 Chronic allergic rhinitis due to pollen 10/07/19 18 Morbid (severe) obesity due to excess calories 1 05/11/2016 Mixed hearing loss, bilateral 03/10/2017 [place] current use of insulin ([facility]) 03/10 Body mass index (BMI) 45.0-49.9, adult 7 Chronic ethmoidal sinusitis 04/23/2016 Type 2 diabetes mellitus 08/18/2013 Overview (07/08/2016): DMII WO CMP NT ST UNCNTR Assessment & Plan (01/10/2024 1:15 PM CDT): Chronic, with higher hemoglobin A1c Importance of diet and exercise was discussed Would benefit from switching to a different GLP 1 like Mounjaro or Ozempic. However his co-pay is very high Will increase Trulicity to 4.5 mg weekly Continue Toujeo and Jardiance as well as metformin Assessment & Plan (09/14/2023 10:10 AM CDT): Chronic problem, higher readings since admitted with pneumonia, back on his low dose insulin regimen. Reviewed how to taper off this again as he is finished with steroids. Continue metformin, Jardiance, and Trulicity. Assessment & Plan (06/02/2023 12:30 PM MUSIC EXECUTIVE): Chronic, well-controlled with risk of hypoglycemia Stop Toujeo Continue Jardiance 25 mg daily Continue Trulicity Patient to call if blood glucose persistently increased to over 150 Assessment & Plan (02/10/2023 11:13 AM MUSIC EXECUTIVE): Chronic problem. A1c at goal/stable today at 5.9%. Current medications: Jardiance 25mg daily Metformin 1000mg daily Trulicity 3mg weekly Toujeo 15 units daily Regular insulin 10 units for blood sugar over 150 (rarely uses) UTD on labs. DM eye exam completed at [facility]. Letter sent to get copy of report. Strive for regular exercise (30min most days) and diet (get at least 4-5 servings of fruit and veggies daily, avoid processed foods, increase lean protein intake and decrease carb portions as well as fruit juices, regular soda & desserts). Watch carbs and simple sugars. Check the blood sugar daily. Check the feet daily for skin breakdown and infection. Assessment & Plan (10/28/2022 3:49 PM CDT): Hba1c was Lab Results Component Value Date HGBA1C 5.8 10/28/2022 today, indicating adequate DM control with risk of hypoglycemia Goal Hba1c under 7 and blood glucose in the 90 to 120 range was explained Diet and exercise were advised Prevention and treatment of hyypoglcyemia were discussed with the patient Blood glucose monitoring : Once a day, alternating different times of the day Adjustment to medications: Lower Toujeo to 20 units daily Continue Farxiga and metformin Social History Tobacco Use Types Packs/Day Years Used Date Smoking Tobacco: Every Day Cigarettes Smokeless Tobacco: Never Tobacco Cessation:Ready to Q uit: Not Asked; Counseling Given: Not Answered Alcohol Use Standard Drinks/Week Comments No 0 (1 standard drink = 0.6 oz pur e alcohol) AUDIT-C Answer Date Recorded Q1: How often do you have a drink containing alcohol? Never 01/10/2024 Q2: How many drinks containi ng alcohol do you have on a typical day when you are drinking? Patient does not drink Q3: How often do you have si x or more drinks on one occasion? Never 01/10/2024 PHQ-2 Answer Date Recorded PHQ-2 Total Score (If total score is 3 or more points, staff should administer the PHQ-9) 0 01/10/2024 Sex and Gender Information Value Date Recorded Sex Assigned at Not on file Legal Sex Male 12:39 PM MUSIC EXECUTIVE Gender Identity Not on file Sexual Orientation Straight 01/10/2024 11 :32 AM CDT Last Filed Vital Signs Vital Sign Reading Time Taken Comments Blood Pressure 148/70 01/10/2024 11:33 AM CDT Pulse 68 01/10/2024 11:33 AM CDT Temperature 36.2 ??C (97.1 ??F) 03/18/2020 9:01 AM CS T Respiratory Rate 20 01/10/2024 11:33 AM CDT Oxygen Saturation 96% 03/18/2020 9:01 AM MUSIC EXECUTIVE Inhaled Oxygen Concentration - - Weight 122.9 kg (271 lb) 01/10/2024 11:33 AM CDT Height 172.7 cm (5' 8 ) 01/10/2024 11:33 AM CDT Body Mass Index 41.21 01/10/2024 11:33 AM CDT Plan of Treatment Not on file Procedures Procedure Name Priority Date/Time Associated Diagnosis Comments EGFR Routine 01/10/2024 12:21 PM CDT Type 2 diabetes mellitus with diabetic peripheral angiopathy with gangrene, unspecified whether remote computer terminal operator insulin use (HCC) LIPID PANEL Routine 01/10/2024 12:21 PM CDT Type 2 diabetes mellitus with diabetic peripheral angiopathy with gangrene, unspecified whether fdc insulin use (HCC) ALBUMIN CREATININE RATIO, URINE Routine 01/10/2024 12:21 PM CDT Type 2 diabetes mellitus with diabetic peripheral angiopathy with gangrene, unspecified whether remote computer terminal operator insulin use (HCC) POCT HEMOGLOBIN A1C Routine 01/10/2024 1 1:35 AM CDT Type 2 diabetes mellitus with diabetic peripheral angiopathy with gangrene, unspecified whether fdc insulin use (HCC) DIABETES EYE EXAM Routine 12/16/2022 9:30 AM CDT from Last 3 Months or Most Recently Relevant to Health Maintenance Results * (ABNORMAL) eGFR (01/10/2024 12:21 PM CDT) [facility] eGFR 52(L) >=60 mL/min/1. 73 m2 Comment: Interpretive Data Reference Interval Normal ?>/= 90 mL/min/1.73m2 Mildly decreased* ? 60 - 89 mL/min/1.73m2 Mildly to moderately decreased ?45 - 59 mL/min/1.73m2 Moderately to severely decreased ??30 - 44 mL/min/1.73m2 Severely decreased ?15 - 29 mL/min/1.73m2 Kidney Failure ?< 15 ??mL/min/1.73m2 *Relative to young adult level Estimated glomerular filtration rate is determined by the 2020 CKD-EPI equation recommended by the National Kidney Foundation (A Unifying Approach to GFR Estimation: Recommendations of the NKF-ASK Task Force on Reassessing the Inclusion of Race in Diagnosing Kidney Disease, JASN 2020). The CKD-EPI equation should not be used for patients with unstable renal function and has not been validated in children and those over 70. Current interpretive data was last reviewed 2021. Blood 01/10/2024 12:2 1 PM CDT 01/10/2024 5:42 PM CDT Dania Escoto MD LAB BLOOD ORDERABLES Final Resul t Performing Organization Address [facility] de Phone Number SÁNCHEZTIA NASCIMENTO [address] [place] [place] [address] * (ABNORMAL) Albumin Creatinine Ratio, Urine (01/10/2024 12:21 PM CDT) Albumin Ur 1,411.4 mg/L Comment: Interpretive Data No reference range established. Current interpretive data was last revised 2018. Creatinine Ur 28.5 mg/dL LEX NASCIMENTO Comment: Interpretive Data No reference range established. Current interpretive data was last revised 2018. Albumin Creatinine Ratio, Ur 4,952(H) 1 - 29 mg/g LEX NASCIMENTO Urine 01/10/2024 12:2 1 PM CDT 01/10/2024 5:28 PM CDT Dania Escoto MD LAB URINE ORDERABLES Final Resul t Performing Organization Address [facility] Co de Phone Number LEX [address] [place] [address] * (ABNORMAL) Lipid panel (01/10/2024 12:21 PM CDT) Cholesterol 174 30 - 199 mg/dL Comment: Interpretive Data Ages < or = 19 years ??Acceptable: ? <170 mg/dL ??Borderline high: ??170-199 mg/dL ??High: ? >or= 200 mg/dL Ages > or = 20 years ??Desirable: ?<200 mg/dL ??Borderline high: ??200-239 mg/dL ??High: ? >or= 240 mg/dL Literature References: 1. Expert Panel on Integrated Guidelines for Cardiovascular Health and Risk Reduction in Children and Adolescents. Pediatrics 2011;128:S213 2. NCEP Expert Panel. Circulation 2004;110:227 Current Interpretive Data was last revised on 2017. Triglycerides 298(H) <=149 mg/dL LEX NASCIMENTO Comment: Interpretive Data Ages < or = 9 years ??Acceptable: ? <75 mg/dL ??Borderline high: ??75-99 mg/dL ??High: ? >or= 100 mg/dL Ages 10 to 20 years ??Acceptable: ? <90 mg/dL ??Borderline high: ??90-129 mg/dL ??High: ? >or= 130 mg/dL Ages > or = 20 years ??Desirable: ?<150 mg/dL ??Borderline high: ??150-199 mg/dL ??High: ? 200-499 mg/dL ?Very high: ?? >or= 499 mg/dL Literature References: 1. Expert Panel on Integrated Guidelines for Cardiovascular Health and Risk Reduction in Children and Adolescents. Pediatrics 2011;128:S213 2. NCEP Expert Panel. Circulation 2004;110:227 Current Interpretive Data was last revised on 2017. HDL 36(L) >=40 mg/dL LEX NASCIMENTO Comment: Interpretive Data Ages < or = 19 years ??Acceptable: ? >45 mg/dL ??Borderline low: ?? 40-45 mg/dL ??Low: ? <40 mg/dL Ages > or = 20 years ??Desirable: ?>or= 60 mg/dL ??Low: ? <40 mg/dL Literature References: 1. Expert Panel on Integrated Guidelines for Cardiovascular Health and Risk Reduction in Children and Adolescents. Pediatrics 2011;128:S213 2. NCEP Expert Panel. Circulation 2004;110:227 Current Interpretive Data was last revised on 2017. LDL, calculated 89 <=129 mg/dL LEX NASCIMENTO Comment: Interpretive Data Ages < or = 19 years ??Acceptable: ? <110 mg/dL ??Borderline high: ??110-129 mg/dL ??High: ?>or= 130 mg/dL Ages > or = 20 years ??Optimal: ? <100 mg/dL ??Near optimal: ?100-129 mg/dL ??Borderline high: ?? 130-159 mg/dL ??High: ?>160 mg/dL Calculated using the Dontrell LDL-C estimating equation. This equation was implemented on 2023. Prior to this date LDL-C was estimated using the Friedewald equation. Literature References: 1. Expert Panel on Integrated Guidelines for Cardiovascular Health and Risk Reduction in Children and Adolescents. Pediatrics 2011;128:S213 2. NCEP Expert Panel. Circulation 2004;110:227 3. Dontrell Cameron et al. CORDELL Cardiol. 2019August 02;5(5):540-548. doi: 10.1001/[email or web address].2020.0013 Current Interpretive Data was last revised on 2023. Non-HDL Cholesterol 138 mg/dL LEX NASCIMENTO Comment: Interpretive Data Ages < or = 19 years ??Acceptable: ?<120 mg/dL ??Borderline high: ??120-144 mg/dL ??High: ?>145 mg/dL Ages > or = 20 years ??When triglycerides are >200 mg/dL, Non-HDL cholesterol is a secondary target of ? therapy with treatment goals that are 30 mg/dL greater than the LDL cholesterol target. ? Literature References: 1. Expert Panel on Integrated Guidelines for Cardiovascular Health and Risk Reduction in Children and Adolescents. Pediatrics 2011;128:S213 2. NCEP Expert Panel. Circulation 2004;110:227 Current Interpretive Data was last revised on 2017. Chol/HDL ratio 5 SÁNCHEZTIA NASCIMENTO Blood 01/10/2024 12:2 1 PM CDT 01/10/2024 5:28 PM CDT Dania Escoto MD LAB BLOOD ORDERABLES Final Resul t LEX [place] [address] [facility] [place] [address] * POCT hemoglobin A1c (01/10/2024 11:35 AM CDT) Hemoglobin A1C, POC 6.8 4.0 - 5.6 % Comment:None Capillary blood 01/10/2024 1 1:35 AM CDT Dania Escoto MD POINT OF CARE TEST ORDERABLES Fi nal Result * (ABNORMAL) DIABETES EYE EXAM (12/16/2022 9:30 AM CDT) Oscar De La Fuente MD HEALTH MAINTENANCE Edited Result - Final from Last 3 Months or Most Recently Relevant to Health [place] [address] [place] [address] [facility] [place] Care Teams Shot Polisher Relationship Specialty Start Date End Date Cain Mendoza MD [address] [address] PCP - General 02/03/11
--- OUTSIDE RECORDS SUMMARY | 2024-05-04 10:30 | XMS_ITS | Clinical Summary ---
Author Organization [facility] [address] [facility] tt Address [address] [place] [address] Care Team Providers Care Photo Manager Name Role Phone Cain Mendoza MD Primary Care Provider [phone] Allergies Active Allergy Reactions Criticality Noted Date [...] INSULIN SYRINGE 1 mL 29 gauge x 04/05 syringe Active TRIAMTERENE-H YDROCHLOROTHI AZIDE 37.5-25 mg [...] total) by mouth every 12 (twelve) hours Active empagliflozin (JARDIANCE) 25 mg tablet Take 1 tablet (25 mg total) by mouth daily 14 tablet Active dulaglutide (Trulicity) 4.5 mg/0.5 mL pen injector Inject 0.5 mL (4.5 mg total) under the skin every 7 days 2 mL 3 Active blood glucose diagnostic stripIndicati ons:Type 2 diabetes mellitus with diabetic peripheral angiopathy with gangrene, unspecified whether software engineering associate manager insulin use (HCC) One Touch Ultra Test Strips Check blood sugar twice daily Dx: E11.52 100 strip 11 025 Active blood-glucose meter miscIndicatio ns:Type 2 diabetes mellitus with diabetic peripheral angiopathy with gangrene, unspecified whether senior care insulin use (HCC) One touch Ultra Meter Check blood sugar twice daily Dx: E11.52 1 each 025 Active CONTOUR NEXT TEST STRIPS strip 019 2024 Discontinued blood glucose diagnostic stripIndicati ons:Type 2 diabetes mellitus with diabetic peripheral angiopathy with gangrene, unspecified whether software engineering associate manager insulin use (HCC) One Touch Ultra Test Strips Check blood sugar twice daily Dx: E11.52 100 strip 11 025 2024 Discontinued(R eorder) blood-glucose meter miscIndicatio ns:Type 2 diabetes mellitus with diabetic peripheral angiopathy with gangrene, unspecified whether software engineering associate manager insulin use (HCC) One touch Ultra Meter Check blood sugar twice daily Dx: E11.52 1 each 025 2024 Discontinued(R eorder) Active Problems Problem Noted Date Diagnosed Date Hypertension associated with type 2 diabetes deedee litus 02/10/2023 Assessment & Plan (09/14/2023 10:10 AM CDT): Chronic problem, improved on recheck. Continue lisinopril, metoprolol, Maxzide, furosemide, diltiazem. Assessment & Plan (06/02/2023 12:31 PM SCRUBBING MACHINE OPERATOR): Chronic, well-controlled. Continue lisinopril Assessment & Plan (02/10/2023 10:37 AM SCRUBBING MACHINE OPERATOR): Chronic problem. Elevated upon arrival today. Currently taking Lisinopril 40mg, metoprolol XL 100mg daily, triamterene-HCTZ 37.5-25mg. Class 2 severe obesity due t o excess calories with serious comorbidity and body mass index (BMI) of 35.0 to 35.9 in adult 02/10/2023 Assessment & Plan (02/10/2023 3:18 PM SCRUBBING MACHINE OPERATOR): Actively working on weight loss. Difficulty w/exercise [...] changes. Assessment & Plan (06/02/2023 12:31 PM SCRUBBING MACHINE OPERATOR): Chronic, stable. Continue combination therapy of atorvastatin 40 mg daily with fenofibrate Diet and exercise advised Assessment & Plan (02/10/2023 10:38 AM SCRUBBING MACHINE OPERATOR): Chronic problem. Near goal on current Atorvastatin 40mg & fenofibrate 135mg. Last lipid panel: 10/28/22 LDL=84, NO=891. Assessment & Plan (10/28/2022 3:49 PM CDT): LDL goal under 80 Update lipid profile Continue atorvastatin 40 mg daily Persistent proteinuria 10/02/2018 Chronic mastoiditis, right ear 01/25/2018 Conductive hearing loss of l eft ear with unrestricted hearing of right ear 10/06/2017 Chronic allergic rhinitis due to pollen 10/07/19 18 Morbid (severe) obesity due to excess calories 1 05/11/2016 Mixed hearing loss, bilateral 03/10/2017 [facility] current use of insulin ([facility]) 03/10 Body mass index (BMI) 45.0-49.9, adult [...] Trulicity. Assessment & Plan (06/02/2023 12:30 PM SCRUBBING MACHINE OPERATOR): Chronic, well-controlled with risk of hypoglycemia Stop Toujeo Continue Jardiance 25 mg daily Continue Trulicity Patient to call if blood glucose persistently increased to over 150 Assessment & Plan (02/10/2023 11:13 AM SCRUBBING MACHINE OPERATOR): Chronic problem. A1c at goal/stable today at 5.9%. Current medications: Jardiance 25mg daily Metformin 1000mg daily Trulicity 3mg weekly Toujeo 15 units daily Regular insulin 10 units for blood sugar over 150 (rarely uses) UTD on labs. DM eye exam completed at [facility]. Letter sent to get copy of report. [...] 20 units daily Continue Farxiga and metformin Encounters Date Type Department Care Team Description 04/25/2024 Telephone [facility] Diabetes and Endocrinology [address] [place] [address] Kaitlynn Vivas NP PCP Callback Request - Patient 03/21/2024 Telephone [facility] Diabetes and Endocrinology [address] [place] [address] Dania Escoto MD Med Management (Toujeo) from Last 3 Months Surgical History Surgery Date Site/Laterality Comments GALLBLADDER SURGERY CARPAL TUNNEL RELEASE Bilateral EAR SURGERY Medical History Medical History Date Comments Hx Other Medical WHITNEY Hyperlipidemia Hyperlipidemia Gastroesophageal reflux disease GERD History of multiple allergies Al lergies Asthma Asthma Hypertension Hypertension Type 2 diabetes mellitus (HCC) Family History Medical History Relation Name Comments Coronary artery disease Father Toby nary artery disease; Diabetes Father Diabetes mellit us; Hypertension Mother Hypertension; Relation Name Status Comments Father Mother Social History Tobacco Use Types Packs/Day Years [...] on file Legal Sex Male 12:39 PM SCRUBBING MACHINE OPERATOR Gender Identity Not on file Sexual Orientation Straight 01/10/2024 11 :32 AM CDT Obstetrics History Last Filed Vital Signs Vital Sign Reading Time Taken Comments Blood Pressure 148/70 01/10/2024 11:33 AM CDT Pulse 68 01/10/2024 11:33 AM CDT Temperature 36.2 ??C (97.1 ??F) 03/18/2020 9:[address] Respiratory Rate 20 01/10/2024 11:33 AM CDT Oxygen Saturation 96% 03/18/2020 9:01 AM SCRUBBING MACHINE OPERATOR Inhaled Oxygen Concentration - - Weight 122.9 kg (271 lb) 01/10/2024 11:33 AM CDT Height 172.7 cm (5' 8 ) 01/10/2024 11:33 AM CDT Body Mass Index 41.21 01/10/2024 11:33 AM CDT Plan of Treatment Health Maintenance Due Date Last Done Comments Colon Cancer Screening-Colonoscopy 1965 Hepatitis C Screening 1965 Prostate Cancer Screening-PSA 1965 Pneumococcal vaccine <65 (1 of 2 - PCV) 08/18/1969 Hepatitis B Screening 08/18/1981 Regular Well Visit/Exam 18-64 08/18/1981 Zoster Vaccine (1 of 2) 08/18/2013 Covid-19 Vaccine (5 - 2023-2 5 season) 2023 02/03/2022, 03/13/2021, 07/14/2020, Additional history exists Influenza Vaccine (#1) 2023 Dilated Eye Exam 12/17/2023 12/16/2022 Foot Exam 02/11/2024 02/10/2023 Hemoglobin A1C 07/10/2024 01/10/2024, 0605/2023, 06/02/2023, Additional history exists Albumin Creatinine Ratio, Urine 01/09/2025 , 11/01/2022 Depression Screening 01/09/2025 01/10/2024, 01/10/20 24 Lipid Panel 01/09/2025 01/10/2024, 10/28/2022 eGFR 01/09/2025 01/10/2024, 10/28/2022 DTaP/Tdap/Td Vaccine (3 - Td or Tdap) 10/06/2031 10/05/2021, 09/30/2017 Procedures Procedure Name Priority Date/Time Associated Diagnosis Comments EGFR Routine 01/10/2024 12:21 PM CDT Type 2 diabetes mellitus with diabetic peripheral angiopathy with gangrene, unspecified whether senior care insulin use (HCC) LIPID PANEL Routine 01/10/2024 12:21 PM CDT Type 2 diabetes mellitus with diabetic peripheral angiopathy with gangrene, unspecified whether senior care insulin use (HCC) ALBUMIN CREATININE RATIO, URINE Routine 01/10/2024 12:21 PM CDT Type 2 diabetes mellitus with diabetic peripheral angiopathy with gangrene, unspecified whether software engineering associate manager insulin use (HCC) POCT HEMOGLOBIN A1C Routine 01/10/2024 1 1:35 AM CDT Type 2 diabetes mellitus with diabetic peripheral angiopathy with gangrene, unspecified whether senior care insulin use (HCC) DIABETES EYE EXAM Routine 12/16/2022 9:30 AM CDT from Last 3 Months or Most Recently Relevant to Health Maintenance Results * (ABNORMAL) eGFR (01/10/2024 12:21 PM CDT) [facility] eGFR 52(L) >=60 mL/min/1. 73 m2 Comment: [...] 1 PM CDT 01/10/2024 5:42 PM CDT us Dania Escoto MD LAB BLOOD ORDERABLES Final Resul t Performing Organization Address [facility] Phone Number [facility] [address] [place] [address] * (ABNORMAL) Albumin Creatinine Ratio, Urine (01/10/2024 12:21 PM CDT) Albumin Ur 1,411.4 mg/L Comment: Interpretive Data No reference range established. Current interpretive data was last revised 2018. Creatinine Ur 28.5 mg/dL [facility] Comment: Interpretive Data No reference range established. Current interpretive data was last revised 2018. Albumin Creatinine Ratio, Ur 4,952(H) 1 - 29 mg/g [facility] Urine 01/10/2024 12:2 1 PM CDT 01/10/2024 5:28 PM CDT Dania Escoto MD LAB URINE ORDERABLES Final Resul t Performing Organization Address [facility] de Phone Number [facility] [address] [place] [place] [address] * (ABNORMAL) Lipid panel (01/10/2024 12:21 PM [...] 3. Dontrell Cameron et al. CORDELL Cardiol. 2020 August 02;5(5):540-548. doi: [email or web address] Current Interpretive Data was [...] last revised on 2017. Chol/HDL ratio 5 LEX Blood 01/10/2024 12:2 1 PM CDT 01/10/2024 5:28 PM CDT Dania Escoto MD LAB BLOOD ORDERABLES Final Resul t [place] [address] [place] [address] * POCT hemoglobin A1c (01/10/2024 11:35 AM CDT) Hemoglobin A1C, POC 6.8 4.0 - 5.6 % Comment:None Capillary blood 01/10/2024 1 1:35 AM CDT Dania Escoto MD POINT OF CARE TEST ORDERABLES Fi nal Result * (ABNORMAL) DIABETES EYE EXAM (12/16/2022 9:30 AM CDT) Historical Provider HEALTH MAINTENANCE Edited Result - Final from Last 3 Months or Most Recently Relevant to Health Maintenance Insurance [facility] Care Teams Photo Manager Relationship Specialty Start Date End Date Cain Mendoza MD [address] [facility] [address] [place] [address] PCP - General 02/03/11
--- OUTSIDE RECORDS SUMMARY | 2024-05-04 10:30 | XMS_ITS | Continuity of Care Document ---
Author Organization [facility] Address [address] [place] [address] Phone Care Team Providers Care Care Clinician Name Role Phone Yuriy Gonzales DO Unavailable Unavailable Advance Directives Directive Yes / No Effective Date File Name No Information Encounters Encounter Description Practice Location Reason(s) For Visit Diagnoses Date Provider Providers Copied on Encounter [facility], [address], [place], [place], [id number], [place] tel:[phone] [facility] No Information Christian Plummer. [address] [facility], [place], [address], [place]. tel: [phone] Family History Family Member Type Diagnosis Age At Onset No Information Payers Payer name Insurance type Covered republican ID Authoriza tion(s) No Information Social History [...]
--- OUTSIDE RECORDS SUMMARY | 2024-05-04 10:30 | XMS_ITS | Referral Summary ---
Author Organization [facility] Address [address] [place] [address] Care Team Providers Care Market Maker Name Role Phone Julio Puentes MD Primary Care Provider [phone] Source Comments [facility],non-owned Affiliates and Associated Physician Practices is amultiple site organization consisting of ambulatory clinics and hospital sitesin [place], [place], [place] and [place]. This disclosure is being madepursuant to the Care Everywhere program and may not contain all information available regarding this patient. Last updated 17.[facility] [employer] ([place]) Social History Tobacco Use Types Packs/Day Years Used Date Smoking Tobacco: Never Assessed Sex and Gender Information Value Date Recorded Sex Assigned at Not on file Gender Identity Not on file Sexual Orientation Not on file Plan of Treatment Not on file Care Teams Market Maker Relationship Specialty Start Date End Date Julio Puentes MD [address] [place] [address] PCP - General Internal Medicine 02/23/19
--- OUTSIDE RECORDS SUMMARY | 2024-05-04 10:30 | XMS_ITS | Encounter Summary ---
Author Organization [facility] Facility Care Team Providers Care Floor Associate Name Role Phone Cain Mendoza MD Primary Care Provider [phone] Encounter Details Date Type Department Care Team (Latest Contact Info) Description 10/06/2017 Orders Only [facility] ProviderOscar MD [address] [place] [address] Social History Tobacco Use Types Packs/Day Years Used Date Smoking Tobacco: Never Assessed Alcohol Use Standard Drinks/Week Comments No 0 (1 standard drink = 0.6 oz pur e alcohol) Sex and Gender Information Value Date Recorded Sex Assigned at Not on file 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 Historical Provider NURSING COMMUNICATION Fin al Result documented in this encounter Visit Diagnoses Not on filedocumented in this encounter Care Teams Floor Associate Relationship Specialty Start Date End Date Cain Mendoza MD [address] [address] PCP - General 02/03/11 documented as of this encounter
--- OUTSIDE RECORDS SUMMARY | 2024-05-04 10:30 | XMS_ITS | Clinical Summary ---
Author Organization [facility] Address [address] [facility] [place] [address] Care Team Providers Care Marketing Reporting Analyst Name Role Phone Julio Puentes MD Primary Care Provider [phone] Source Comments [facility],non-owned Affiliates and Associated Physician Practices is amultiple site organization consisting of ambulatory clinics and hospital sitesin [place], [place], [place] and [place]. This disclosure is being madepursuant to the Care Everywhere program and may not contain all information available regarding this patient. Last updated 17.[facility] Social History Tobacco Use Types Packs/Day Years Used Date Smoking Tobacco: Never Assessed Sex and Gender Information Value Date Recorded Sex Assigned at Not on file Gender Identity Not on file Sexual Orientation Not on file Plan of Treatment Health Maintenance Due Date Last Done Comments COLOGUARD (AGES 45-75) - COL ON CA SCREENING 1963 COLON MONITORING 1963 COLONOSCOPY - COLON CA SCREENING 1963 CT COLONOGRAPHY - COLON CA SCREENING 1963 Colorectal Cancer Screening 1963 FIT - COLON CA SCREENING 1963 FLEX SIG - COLON CA SCREENING 1963 LIPID TESTING 1963 HIV SCREENING 08/18/1978 HEPATITIS C SCREENING 08/14/1981 DTAP/TDAP/TD VACCINES (1 - Tdap) 08/18/1982 PNEUMOCOCCAL VACCINE 50+ (1 of 1 - PCV) 08/18/2013 ZOSTER VACCINE (1 of 2) 08/18/2013 COVID-19 VACCINE ( - 2023-2 5 season) 2023 INFLUENZA VACCINE (#1) 2023 DEPRESSION SCREENING 04/04/2024 MEDICARE AWV ? CALENDAR YEAR 2024 Respiratory Syncytial Virus (RSV) Vaccine Pt: or over 60 yrs (1 - 1-dose 75+ series) 08/18/2038 HEPATITIS B VACCINE Aged Out No longe r eligible based on patient's age to complete this topic HIB VACCINE Aged Out No longer eligi ble based on patient's age to complete this topic HPV VACCINE Aged Out No longer eligi ble based on patient's age to complete this topic MENINGOCOCCAL (Group B) VACCINE Aged Out No longer eligible based on patient's age to complete this topic MENINGOCOCCAL VACCINE Aged Out No real jessy eligible based on patient's age to complete this topic PNEUMOCOCCAL VACCINE Aged Out No long er eligible based on patient's age to complete this topic Care Teams Marketing Reporting Analyst Relationship Specialty Start Date End Date Julio Puentes MD [address] [place] [address] PCP - General Internal Medicine 02/23/19
--- OUTSIDE RECORDS SUMMARY | 2024-05-04 10:30 | XMS_ITS | Clinical Summary ---
Author Organization [facility] Address [address] [place] [address] Phone Care Team Providers Care Business Analysis Specialist Name Role Phone Jabier Acosta Primary Care Provider [phone] Allergies Active Allergy Reactions Criticality Noted Date Comments Erythromycin Unknown 10/05/2021 Penicillin G Unknown 10/05/2021 Tetracycline Unknown 10/05/2021 Medications No known medications Immunizations Immunization Administration Dates Next Due TDAP Vaccine 10/05/2021 Social History Tobacco Use Types Packs/Day Years Used Date Smoking Tobacco: Every Day Alcohol Use Standard Drinks/Week Comments Never 0 (1 standard drink = 0.6 oz pur e alcohol) Sex and Gender Information Value Date Recorded Sex Assigned at Not on file Legal Sex Male 11:00 AM CDT Gender Identity Not on file Sexual Orientation Not on file Last Filed Vital Signs Vital Sign Reading Time Taken Comments Blood Pressure 159/65 10/05/2021 11:04 AM CDT Pulse 79 10/05/2021 11:04 AM CDT Temperature 36.2 ??C (97.2 ??F) 10/05/2021 11:04 AM C DT Respiratory Rate 17 10/05/2021 12:11 PM CDT Oxygen Saturation 96% 10/05/2021 11:04 AM CDT Inhaled Oxygen Concentration - - Weight 112.9 kg (249 lb) 10/05/2021 11:04 AM CDT Height 174 cm (5' 8.5 ) 10/05/2021 11:04 AM CDT Body Mass Index 37.31 10/05/2021 11:04 AM CDT Plan of Treatment Not on file Insurance MEDICARE C [employer] Care Teams Business Analysis Specialist Relationship Specialty Start Date End Date Jabier Acosta DO [address] [facility] [address] [place] [address] PCP - General Internal Medicine 10/05/21
== END ==
PROVIDERS: PCP Nurse Practitioner; Visit Provider Nurse Practitioner
DX: J18.9 Pneumonia, unspecified organism (principal)
CPT/HCPCS: 71046

== ENCOUNTER → 2024-07-09 15:57 | Outpatient (CLI) | payer OTHER, SELFPAY ==
--- NOTE | ~2024-07-09 | XR_ITS ---
CHEST RADIOGRAPH, PA AND LATERAL CLINICAL HISTORY: R05.9 - Cough, unspecified . COMPARISON: 05/04/24 TECHNIQUE: PA and lateral views of the chest. FINDINGS The cardiomediastinal silhouette is unremarkable. Increased interstitial markings are identified bilaterally, findings suggesting mild pulmonary vascul ar congestion. Redemonstration of a 13 mm nodule within the right apex, stable since 2019. Redemonstration of patchy opacification of the right middle and right lower lobes, for which repeat C T examination is recommended for further evaluation. IMPRESSION: Findings consistent with multifocal pneumonia on previous CT examination dated 03/24/2024 for which r esolution has not been achieved and for which repeat CT examination is recommended. Reviewed, dictated and finalized at location A. IMPRESSION: Findings consistent with multifocal pneumonia on previous CT examination dated 03/24/2024 for which resolution has not been achieved and for which repeat CT e xamination is recommended.
--- OUTSIDE RECORDS SUMMARY | 2024-07-09 17:49 | XMS_ITS | Clinical Summary ---
Author Organization [facility] Address [address] [place] [address] Care Team Providers Care Product Development Engineer Name Role Phone Julio Puentes MD Primary Care Provider [phone] Source Comments [facility],non-owned Affiliates and Associated Physician Practices is amultiple site organization consisting of ambulatory clinics and hospital sitesin [place], [place], [place] and [place]. This disclosure is being madepursuant to the Care Everywhere program and may not contain all information available regarding this patient. Last updated 17.[facility] Social History Tobacco Use Types Packs/Day Years [...] COLON CA SCREENING 1963 LIPID TESTING 1963 MEDICARE AWV 12 MONTHS 1963 HIV SCREENING 08/18/1978 HEPATITIS C SCREENING 08/14/1981 DTAP/TDAP/TD VACCINES (1 - Tdap) 08/18/1982 PNEUMOCOCCAL VACCINE 50+ (1 of 1 - PCV) 08/18/2013 ZOSTER VACCINE (1 of 2) 08/18/2013 COVID-19 VACCINE ( - 2023-2 5 season) 2023 INFLUENZA VACCINE (#1) 2023 DEPRESSION SCREENING 04/04/2024 MEDICARE AWV CALENDAR YEAR 2024 Respiratory Syncytial Virus (RSV) [...] to complete this topic MENINGOCOCCAL (Group B) VACC INE SHARED DECISION-MAKING Aged Out No longer eligibl e based on patient's age to complete this topic MENINGOCOCCAL GROUPS A/C/Y/W VACCINE Aged Out No longer eligible b ased on patient's age to complete this topic PNEUMOCOCCAL VACCINE Aged Out No long er eligible based on patient's age to complete this topic Care Teams Product Development Engineer Relationship Specialty Start Date End Date Julio Puentes MD [address] [place] [phone] PCP - General Internal Medicine 02/23/19
--- OUTSIDE RECORDS SUMMARY | 2024-07-09 17:49 | XMS_ITS | Encounter Summary ---
Author Organization [facility] Address 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 Gender Identity Not on file Sexual Orientation Not on file documented as of this encounter Plan of Treatment Upcoming Encounters Date Type Department Care Team (Late st Contact Info) Description 08/24/2024 8:30 AM CDT Office Visit [facility] Oncology and Hematology - [place] [address] [facility] [address] [place] [address] Lewis Stanley MD [address] [facility] [address] [place] [address] documented as of this encounter Visit Diagnoses Not on filedocumented in this encounter Care Teams Meteorological Observer Relationship Specialty Start Date End Date Cain Mendoza MD [facility] [place] [address] PCP - General Family Practice 12/17/22 documented as of this encounter
--- OUTSIDE RECORDS SUMMARY | 2024-07-09 17:49 | XMS_ITS | Encounter Summary ---
Author Organization [facility] Address 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 Gender Identity Not on file Sexual Orientation Not on file documented as of this encounter Plan of Treatment Upcoming Encounters Date Type Department Care Team (Late st Contact Info) Description 08/24/2024 8:30 AM CDT Office Visit [facility] Oncology and Hematology - [place] [address] [facility] [address] [place] [address] Lewis Stanley MD [address] [facility] [address] [place] [address] documented as of this encounter Visit Diagnoses Not on filedocumented in this encounter Care Teams Acid Purification Equipment Operator Relationship Specialty Start Date End Date Cain Mendoza MD [facility] [place] [phone] PCP - General Family Practice 12/17/22 documented as of this encounter
--- OUTSIDE RECORDS SUMMARY | 2024-07-09 17:49 | XMS_ITS | Clinical Summary ---
Author Organization [facility] Address [address] [place] [address] Phone Care Team Providers Care Mergers And Acquisitions Associate Name Role Phone Jabier Acosta Primary Care Provider [phone] Allergies Active Allergy Reactions Criticality Noted Date [...] 79 10/05/2021 11:04 AM CDT Temperature 36.2 C (97.2 F) 10/05/2021 11:04 AM CDT Respiratory Rate 17 10/05/2021 12:11 PM CDT Oxygen Saturation 96% 10/05/2021 11:04 AM CDT Inhaled Oxygen Concentration - - Weight 112.9 kg (249 lb) 10/05/2021 11:04 AM CDT Height 174 cm (5' 8.5 ) 10/05/2021 11:04 AM CDT Body Mass Index 37.31 10/05/2021 11:04 AM CDT Plan of Treatment Not on file Insurance MEDICARE C ESSENCE Care Teams Mergers And Acquisitions Associate Relationship Specialty Start Date End Date Jabier Acosta DO [address] [facility] [address] [place] [address] PCP - General Internal Medicine 10/05/21
--- OUTSIDE RECORDS SUMMARY | 2024-07-09 17:49 | XMS_ITS | Continuity of Care Document ---
Author Organization [facility] Address [address] [place] [address] Phone Care Team Providers Care Exchange Specialist Name Role Phone Yuriy Gonzales DO Unavailable Unavailable Advance Directives Directive Yes / No Effective Date File Name No Information Encounters Encounter Description Practice Location Reason(s) For Visit Diagnoses Date Provider Providers Copied on Encounter [facility], [address], [place], [place], [id number], [place] tel:[phone] [facility] No Information Christian Plummer. [address] [facility], [place], [address], [place]. tel:[phone] Family History Family Member Type Diagnosis Age [...]
--- OUTSIDE RECORDS SUMMARY | 2024-07-09 17:49 | XMS_ITS | Referral Summary ---
Author Organization [facility] [address] Address [address] [place] [address] Care Team Providers Care Plodder Operator Name Role Phone Cain Mendoza MD Primary Care Provider [phone] Encounters Date Type Department Care Team Description 06/06/2024 Telephone [facility] [address] [place] [address] Kaitlynn Vivas NP Request for Toujeo 05/28/2024 Telephone [facility] [address] [place] [address] Kaitlynn Vivas NP [facility] ([facility] 05/22/2024 Orders Only [facility] [address] [place] [phone] ProviderOscar MD 05/14/2024 10:00 AM CYLINDER PRESS FEEDER Office Visit [facility] [address] [place] [phone] Kaitlynn Vivas NP Type 2 diabetes mellitus with hyperglycemia, with long-term current use of insulin (HCC) (Primary Dx); Hypertension associated with type 2 diabetes mellitus (HCC); Hyperlipidemia associated with type 2 diabetes mellitus (HCC) 04/25/2024 Telephone [facility] [address] [place] [phone] Kaitlynn Vivas NP PCP Callback Request - Patient from Last 3 Months Allergies Active Allergy [...] daily Active atorvastatin (LIPITOR) 40 mg tablet 9 Active fenofibrate choline (TRILIPIX) 135 mg capsule 9 Active lisinopril (PRINIVIL,ZESTRI L) 40 mg tablet 9 Active metFORMIN (GLUCOPHAGE) 1,000 mg tablet Take 1 tablet (1,000 mg total) by mouth 2 (two) times a day with meals Active SURE COMFORT INSULIN SYRINGE 1 mL 29 gauge x 1/2 syringe 9 Active TRIAMTERENE-HYDR OCHLOROTHIAZIDE 37.5-25 mg per tablet 9 Active fluticasone propionate (FLONASE) 50 mcg/actuation nasal sprayIndications :Chronic seasonal allergic rhinitis Administer 1 spray into each nostril daily 16 g 3 9 Active cholecalciferol (VITAMIN D-3) 5,000 unit capsule Take by mouth Active cyclobenzaprine (FLEXERIL) 10 mg tablet Take by mouth 2 (two) times a day as needed 3 Active dilTIAZem CD 240 mg 24 hr capsule Take 1 capsule (240 mg total) by mouth daily 3 Active BD Ultra-Fine Orig Pen Needle 29 gauge x 1/2 needle USE 1 PEN NEEDLE FOUR TIMES DAILY WITH INSULIN PEN Active insulin glargine (TOUJEO) 300 unit/mL (1.5 mL) pen for injection Inject 20 Units under the skin every morning 3 mL 3 Active furosemide (LASIX) 40 mg tablet Take 1 tablet (40 mg total) by mouth every morning 3 Active metoprolol XL (TOPROL-XL) 100 mg 24 hr tablet Take 1 tablet (100 mg total) by mouth daily 3 Active dicyclomine (BENTYL) 20 mg tablet Take 1 tablet (20 mg total) by mouth 2 (two) times a day 4 Active lansoprazole (PREVACID) 30 mg capsule Take 1 capsule (30 mg total) by mouth 2 (two) times a day 4 Active busPIRone (BUSPAR) 5 mg tablet PLEASE SEE ATTACHED FOR DETAILED DIRECTIONS 4 Active empagliflozin (JARDIANCE) 25 mg tablet Take 1 tablet (25 mg total) by mouth daily 14 tablet 4 Active dulaglutide (Trulicity) 4.5 mg/0.5 mL pen injector Inject 0.5 mL (4.5 mg total) under the skin every 7 days 2 mL 3 4 Active blood glucose diagnostic stripIndications :Type 2 diabetes mellitus with diabetic peripheral angiopathy with gangrene, unspecified whether alf insulin use (HCC) One Touch Ultra Test Strips Check blood sugar twice daily Dx: E11.52 100 strip 11 5 Active blood-glucose meter miscIndications: Type 2 diabetes mellitus with diabetic peripheral angiopathy with gangrene, unspecified whether alf insulin use (HCC) One touch Ultra Meter Check blood sugar twice daily Dx: E11.52 1 each 5 Active ALPRAZolam (XANAX) 0.5 mg tablet TAKE 1 TABLET BY MOUTH THE NIGHT BEFORE APPOINTMENT THEN 1 TABLET 1 HOUR BEFORE APPOINTMENT 4 Active benzonatate (TESSALON) 200 mg capsule TAKE 1 CAPSULE BY MOUTH THREE TIMES A DAY NEEDED FOR COUGH 5 Active chlorhexidine (PERIDEX) 0.12 % oral rinse RINSE MOUTH WITH 15ML (1 CAPFUL) FOR 30 SECONDS IN MORNING AND EVENING AFTER BRUSHING, THEN SPIT [address] (NexIUM) 40 mg capsule Take 1 capsule (40 mg total) by mouth 2 (two) times a day 5 Active HYDROcodone-acet aminophen (NORCO) 5-325 mg per tablet TAKE ONE TO TWO TABLET(S) BY MOUTH EVERY 4 TO 6 HOURS NEEDED FOR PAIN. MAX 8 TABS/DAY 4 Active TOUJEO 300 unit/mL (1.5 mL) pen for injection Inject 20 Units under the skin every morning Active Active Problems Problem Noted Date Diagnosed Date Hypertension associated with type 2 diabetes deedee burch 02/10/2023 Assessment & Plan (05/14/2024 10:05 AM CYLINDER PRESS FEEDER): Chronic problem. Elevated upon arrival today. Currently taking Lisinopril 40mg, metoprolol XL 100mg daily, triamterene-HCTZ 37.5-25mg. Assessment & Plan (09/14/2023 10:10 AM CDT): Chronic problem, improved on recheck. Continue lisinopril, metoprolol, Maxzide, furosemide, diltiazem. Assessment & Plan (06/02/2023 12:31 PM CYLINDER PRESS FEEDER): Chronic, well-controlled. Continue lisinopril Assessment & Plan (02/10/2023 10:37 AM CYLINDER PRESS FEEDER): Chronic problem. Elevated upon arrival today. Currently taking Lisinopril 40mg, metoprolol XL 100mg daily, triamterene-HCTZ 37.5-25mg. Class 2 severe obesity due t o excess calories with serious comorbidity and body mass index (BMI) of 35.0 to 35.9 in adult 02/10/2023 Assessment & Plan (02/10/2023 3:18 PM CYLINDER PRESS FEEDER): Actively working on weight loss. Difficulty w/exercise d/t chronic back pain. Discussed healthy diet and importance of regular physical activity (20- 30min/day, 150min/wk). Hyperlipidemia associated with type 2 diabetes cal merrillmitra 10/28/2022 Assessment & Plan (05/14/2024 10:04 AM CYLINDER PRESS FEEDER): Chronic problem. Near goal on current Atorvastatin 40mg & fenofibrate 135mg. Last lipid panel: 01/10/24 LDL=89, ZY=775. Assessment & Plan (01/10/2024 1:15 PM CDT): Chronic, stable. Update lipid profile. Continue statin therapy with atorvastatin 40 mg daily Assessment & Plan (09/14/2023 10:10 AM CDT): Chronic problem. On statin therapy, no changes. Assessment & Plan (06/02/2023 12:31 PM CYLINDER PRESS FEEDER): Chronic, stable. Continue combination therapy of atorvastatin 40 mg daily with fenofibrate Diet and exercise advised Assessment & Plan (02/10/2023 10:38 AM CYLINDER PRESS FEEDER): Chronic problem. Near goal on current Atorvastatin 40mg & fenofibrate 135mg. Last lipid panel: 10/28/22 LDL=84, GO=120. Assessment & Plan (10/28/2022 3:49 PM CDT): LDL goal under 80 Update lipid profile Continue atorvastatin 40 mg daily Persistent proteinuria 10/02/2018 Chronic mastoiditis, right ear 01/25/2018 Conductive hearing loss of l eft ear with unrestricted hearing of right ear 10/06/2017 Chronic allergic rhinitis due to pollen 10/07/19 18 Morbid (severe) obesity due to excess calories 1 05/11/2016 Mixed hearing loss, bilateral 03/10/2017 assisted current use of insulin 03/10/2017 Body mass index (BMI) 45.0-49.9, adult 7 Chronic ethmoidal sinusitis 04/23/2016 Type 2 diabetes mellitus 08/18/2013 Overview (07/08/2016): DMII WO CMP NT ST UNCNTR Assessment & Plan (05/14/2024 10:27 AM CYLINDER PRESS FEEDER): Chronic problem. A1c at goal/stable today at 6.5%. no changes at this time. Current medications: Jardiance 25mg daily Metformin 1000mg twice daily Trulicity 4.5 mg weekly (PAP) Toujeo 15 units daily (PAP) Regular insulin 10 units for blood sugar over 200 (rarely uses) UTD on labs. DM eye exam completed 12/16/22 mild NPDR wo DME [facility]. Rosemary Caceres [place] 04/16/24. Letter sent to get copy of report. [...] skin breakdown and infection. Assessment & Plan (01/10/2024 1:15 PM CDT): [...] Trulicity. Assessment & Plan (06/02/2023 12:30 PM CYLINDER PRESS FEEDER): Chronic, well-controlled with risk of hypoglycemia Stop Toujeo Continue Jardiance 25 mg daily Continue Trulicity Patient to call if blood glucose persistently increased to over 150 Assessment & Plan (02/10/2023 11:13 AM CYLINDER PRESS FEEDER): Chronic problem. A1c at goal/stable today at 5.9%. Current medications: Jardiance 25mg daily Metformin 1000mg daily Trulicity 3mg weekly Toujeo 15 units daily Regular insulin 10 units for blood sugar over 150 (rarely uses) UTD on labs. DM eye exam completed at [facility]. Letter sent to get copy of report. [...] Types Packs/Day Years Used Date Smoking Tobacco: Former Cigarettes Smokeless Tobacco: Never Alcohol Use Standard Drinks/Week Comments No 0 [...] staff should administer the PHQ-9) 0 01/10/2024 PHQ-9 Answer Date Recorded PHQ-9 Total Score 0 01/10/2024 Sex and Gender Information Value Date Recorded Sex Assigned at Not on file Legal Sex Male 12:39 PM CYLINDER PRESS FEEDER Gender Identity Not on file Sexual Orientation Straight 01/10/2024 11 :32 AM CDT Last Filed Vital Signs Vital Sign Reading Time Taken Comments Blood Pressure 136/72 05/14/2024 9:52 AM CYLINDER PRESS FEEDER Pulse 77 05/14/2024 9:52 AM CYLINDER PRESS FEEDER Temperature 36.2 C (97.1 F) 03/18/2020 9:01 AM CYLINDER PRESS FEEDER Respiratory Rate 20 01/10/2024 11:33 AM CDT Oxygen Saturation 96% 03/18/2020 9:01 AM CYLINDER PRESS FEEDER Inhaled Oxygen Concentration - - Weight 120.2 kg (265 lb) 05/14/2024 9:52 AM CYLINDER PRESS FEEDER Height 172.7 cm (5' 7.99 ) 05/14/2024 9:52 AM CS T Body Mass Index 40.3 05/14/2024 9:52 AM CYLINDER PRESS FEEDER Plan of Treatment Not on file Procedures Procedure Name Priority Date/Time Associated Diagnosis Comments POCT GLUCOSE Routine 05/14/2024 9:55 AM CYLINDER PRESS FEEDER Type 2 diabetes mellitus with hyperglycemia, with long-term current use of insulin (HCC) POCT HEMOGLOBIN A1C Routine 05/14/2024 9 :55 AM CYLINDER PRESS FEEDER Type 2 diabetes mellitus with hyperglycemia, with long-term current use of insulin (HCC) DIABETES EYE EXAM Routine 04/16/2024 9:12 AM CYLINDER PRESS FEEDER EGFR Routine 01/10/2024 12:21 PM CDT Type 2 diabetes mellitus with diabetic peripheral angiopathy with gangrene, unspecified whether alf insulin use (HCC) LIPID PANEL Routine 01/10/2024 12:21 PM CDT Type 2 diabetes mellitus with diabetic peripheral angiopathy with gangrene, unspecified whether superintendent terminal insulin use (HCC) ALBUMIN CREATININE RATIO, URINE Routine 01/10/2024 12:21 PM CDT Type 2 diabetes mellitus with diabetic peripheral angiopathy with gangrene, unspecified whether superintendent terminal insulin use (HCC) from Last 3 Months or Most Recently Relevant to Health Maintenance Results * (ABNORMAL) POCT hemoglobin A1c (05/14/2024 9:55 AM CYLINDER PRESS FEEDER) Hemoglobin A1C, POC 6.5 4.0 - 5.6 % Blood 05/14/2024 9:55 AM CYLINDER PRESS FEEDER us Kaitlynnmarisela Vivas DEVELOPER ARCHITECT POINT OF CARE TEST ORDERA BLES Final Result * (ABNORMAL) POCT glucose (05/14/2024 9:55 AM CYLINDER PRESS FEEDER) Glucose Blood, POC 145 mg/dL Blood 05/14/2024 9:55 AM CYLINDER PRESS FEEDER us Kaitlynnmarisela Vivas DEVELOPER ARCHITECT POINT OF CARE TEST ORDERA BLES Final Result * DIABETES EYE EXAM (04/16/2024 9:12 AM CYLINDER PRESS FEEDER) Historical Provider HEALTH MAINTENANCE Final Result * (ABNORMAL) eGFR (01/10/2024 12:21 PM CDT) eGFR 52(L) >=60 mL/min/1. 73 m2 Comment: Interpretive Data Reference Interval Normal >/= 90 mL/min/1.73m2 Mildly decreased* 60 - 89 mL/min/1.73m2 Mildly to moderately decreased 45 - 59 mL/min/1.73m2 Moderately to severely decreased 30 - 44 mL/min/1.73m2 Severely decreased 15 - 29 mL/min/1.73m2 Kidney Failure < 15 mL/min/1.73m2 *Relative to young adult level Estimated glomerular [...] MD LAB BLOOD ORDERABLES Final Resul t [facility] [address] Department [place] [address] * (ABNORMAL) Albumin Creatinine Ratio, Urine (01/10/2024 12:21 PM CDT) Albumin Ur 1,411.4 mg/L Comment: Interpretive Data No reference range established. Current interpretive data was last revised 2018. Creatinine Ur 28.5 mg/dL [facility] Comment: Interpretive Data No reference range established. Current interpretive data was last revised 2018. Albumin Creatinine Ratio, Ur 4,952(H) 1 - 29 mg/g [facility] Urine 01/10/2024 12:2 1 PM CDT 01/10/2024 5:28 PM CDT us Dania Escoto MD LAB URINE ORDERABLES Final Resul t [facility] [address] [place] [address] * (ABNORMAL) Lipid panel (01/10/2024 12:21 PM CDT) Cholesterol 174 30 - 199 mg/dL Comment: Interpretive Data Ages < or = 19 years Acceptable: <170 mg/dL Borderline high: 170-199 mg/dL High: >or= 200 mg/dL Ages > or = 20 years Desirable: <200 mg/dL Borderline high: 200-239 mg/dL High: >or= 240 mg/dL Literature References: 1. Expert Panel on Integrated Guidelines for Cardiovascular Health and Risk Reduction in Children and Adolescents. Pediatrics 2011;128:S213 2. NCEP Expert Panel. Circulation 2004;110:227 Current Interpretive Data was last revised on 2017. Triglycerides 298(H) <=149 mg/dL [facility] Comment: Interpretive Data Ages < or = 9 years Acceptable: <75 mg/dL Borderline high: 75-99 mg/dL High: >or= 100 mg/dL Ages 10 to 20 years Acceptable: <90 mg/dL Borderline high: 90-129 mg/dL High: >or= 130 mg/dL Ages > or = 20 years Desirable: <150 mg/dL Borderline high: 150-199 mg/dL High: 200-499 mg/dL Very high: >or= 499 mg/dL Literature References: 1. Expert Panel on Integrated Guidelines for Cardiovascular Health and Risk Reduction in Children and Adolescents. Pediatrics 2011;128:S213 2. NCEP Expert Panel. Circulation 2004;110:227 Current Interpretive Data was last revised on 2017. HDL 36(L) >=40 mg/dL [facility] Comment: Interpretive Data Ages < or = 19 years Acceptable: >45 mg/dL Borderline low: 40-45 mg/dL Low: <40 mg/dL Ages > or = 20 years Desirable: >or= 60 mg/dL Low: <40 mg/dL Literature References: 1. Expert Panel on Integrated Guidelines for Cardiovascular Health and Risk Reduction in Children and Adolescents. Pediatrics 2011;128:S213 2. NCEP Expert Panel. Circulation 2004;110:227 Current Interpretive Data was last revised on 2017. LDL, calculated 89 <=129 mg/dL [facility] Comment: Interpretive Data Ages < or = 19 years Acceptable: <110 mg/dL Borderline high: 110-129 mg/dL High: >or= 130 mg/dL Ages > or = 20 years Optimal: <100 mg/dL Near optimal: 100-129 mg/dL Borderline high: 130-159 mg/dL High: >160 mg/dL Calculated using the Dontrell LDL-C estimating [...] Data Ages < or = 19 years Acceptable: <120 mg/dL Borderline high: 120-144 mg/dL High: >145 mg/dL Ages > or = 20 years When triglycerides are >200 mg/dL, Non-HDL cholesterol is a secondary target of therapy with treatment goals that are 30 mg/dL greater than the LDL cholesterol target. Literature References: 1. Expert Panel on Integrated Guidelines for Cardiovascular Health and Risk Reduction in Children and Adolescents. Pediatrics 2011;128:S213 2. NCEP Expert Panel. Circulation 2004;110:227 Current Interpretive Data was last revised on 2017. Chol/HDL ratio 5 [facility] Blood 01/10/2024 12:2 1 PM CDT 01/10/2024 5:28 PM CDT us Dania Escoto MD LAB BLOOD ORDERABLES Final Resul t [facility] [address] [address] Department [place] [address] from Last 3 Months or Most Recently Relevant to Health Maintenance Insurance [facility] Care Teams Plodder Operator Relationship Specialty Start Date End Date Cain Mendoza MD [address] [address] PCP - General 02/03/11
--- OUTSIDE RECORDS SUMMARY | 2024-07-09 17:49 | XMS_ITS | Encounter Summary ---
Author Organization [facility] Address [address] [place] [address] Care Team Providers Care Church History Professor Name Role Phone Cain Mendoza MD Primary Care Provider [phone] Encounter Details Date Type Department Care Team (Late st Contact Info) Description 04/07/2001 Outpatient Historical [facility] [place] [address] [facility] [place] [address] Social History Tobacco Use Types Packs/Day Years Used Date Smoking Tobacco: Never Assessed Sex and Gender Information Value Date Recorded Sex Assigned at Not on file Legal Sex Male 4:37 AM LINING MAKER HAND Gender Identity Not on file Sexual Orientation Not on file documented as of this encounter Plan of Treatment Upcoming Encounters Date Type Department Care Team (Late st Contact Info) Description 08/24/2024 8:30 AM CDT Office Visit [facility] Oncology and Hematology - [place] [address] [facility] [address] [place] [address] Lewis Stanley MD [address] [facility] [address] [place] [address] documented as of this encounter Visit Diagnoses Not on filedocumented in this encounter Care Teams Church History Professor Relationship Specialty Start Date End Date Cain Mendoza MD [address] [place] [phone] PCP - General Family Practice 12/17/22 documented as of this encounter
--- OUTSIDE RECORDS SUMMARY | 2024-07-09 17:49 | XMS_ITS | Clinical Summary ---
Author Organization [facility] Address [address] [place] [address] Care Team Providers Care De Icer Installer Name Role Phone Cain Mendoza MD Primary Care Provider [phone] Allergies Active Allergy Reactions Criticality Noted Date Comments Erythromycin Abdominal Pain Low 10/02/2018 Penicillamine Unknown 03/05/2019 Other reaction(s): Unknown Penicillins Unknown 10/02/2018 Tetracycline Abdominal Pain Low 10/02/2018 Medications atorvastatin (LIPITOR) 40 mg tablet 9 Active omeprazole (PriLOSEC) 20 mg Capsule, Delayed Release(E.C.) 9 Active albuterol HFA 90 mcg inhaler Take 2 Puffs by inhalation. Active ALPRAZolam (XANAX) 0.25 mg tablet Take 0.25 mg by mouth. Active aspirin (ECOTRIN EC) 81 mg Tablet, Delayed Release (E.C.) 81 mg. Active blood sugar diagnostic (Contour Next Test Strips) Strip 9 Active cholecalciferol , Vitamin D3, 125 mcg (5,000 unit) Capsule Take by mouth. A ctive dulaglutide (TRULICITY) 0.75 mg/0.5 mL injection Inject 3 mg by subcutaneous injection. Per Dr Simons Dosage change Active empagliflozin (JARDIANCE) 25 mg tablet Take by mouth. Activ e fenofibric acid (TRILIPIX) 135 mg Capsule, Delayed Release(E.C.) 9 Active fluticasone propionate (FLONASE) 50 mcg/spray [place], Suspension nasal inhaler Administer 1 [place] in each nostril. 9 Active ibuprofen (MOTRIN) 800 mg tablet 9 Active insulin glargine U-300 conc (TOUJEO) 300 unit/mL pen syringe Inject by subcutaneous injection. 9 Active lisinopriL (PRINIVIL) 40 mg tablet 9 Active metFORMIN (GLUCOPHAGE) 1,000 mg tablet Take 1,000 mg by mouth. Active methylPREDNISol one (MEDROL) 4 mg tablet 0 Active metoprolol succinate (TOPROL XL) 100 mg Extended Release 24 hour tablet Take 100 mg by mouth. Active Insulin Fleming, Disposable, (UltiCare Pen Needle) 29 gauge x 1/2 Needle USE 1 PEN NEEDLE ONCE DAILY WITH INSULIN PEN 0 Active Insulin Syringe-Needle U-100 (Sure Comfort Insulin Syringe) 1 mL 29 gauge x 1/2 Syringe 9 Active diazePAM (VALIUM) 5 mg tablet PLEASE SEE ATTACHED FOR DETAILED DIRECTIONS 2 Active HYDROcodone-claudia taminophen (NORCO) 5-325 mg tablet TAKE 1 TABLET EVERY 4 TO 6 HOURS NEEDED FOR PAIN 2 Active diltiaZEM (CARDIZEM CD) 240 mg Controlled Delivery 24 hour capsule Take 240 mg by mouth daily. 3 Active semaglutide (Ozempic) 0.25 mg or 0.5 mg(2 mg/1.5 mL) Pen Injector Inject by subcutaneous injection. Active Active Problems Problem Noted Date Diagnosed Date Erythrocytosis 04/28/2020 Encounters Date Type Department Care Team Description 06/11/2024 External Device Data STL ABSTRACTION Provider, Abstract 04/26/2024 External Device Data [facility] ABSTRACTION Provider, Abstract from Last 3 Months Family History Relation Name Status Comments Brother Father Mother Alive Sister Alive Social History Tobacco Use Types Packs/Day Years Used Date Smoking Tobacco: Former Cigarettes 2 25 0 08/04/1998 - 08/05/2023 Smokeless Tobacco: Never Alcohol Use Standard Drinks/Week Comments Never 0 (1 standard drink = 0.6 oz pur e alcohol) Sex and Gender Information Value Date Recorded Sex Assigned at Not on file Legal Sex Male 4:37 AM CRANBERRY SORTER Gender Identity Not on file Sexual Orientation Not on file Last Filed Vital Signs Vital Sign Reading Time Taken Comments Blood Pressure 125/67 12/26/2023 2:20 PM CDT Pulse 70 12/26/2023 2:20 PM CDT Temperature 36.7 C (98 F) 12/26/2023 2:20 PM CDT Respiratory Rate 15 12/26/2023 2:20 PM CDT Oxygen Saturation 95% 12/26/2023 2:20 PM CDT Inhaled Oxygen Concentration - - Weight 121.4 kg (267 lb 9.6 oz) 12/26/2023 2:20 PM CDT Height 172.7 cm (5' 8 ) 10/19/2021 11:0 3 AM CDT Body Mass Index 40.69 10/19/2021 11:03 AM CDT Plan of Treatment Upcoming Encounters Date Type Department Care Team (Late st Contact Info) Description 08/24/2024 8:30 AM CDT Office Visit [facility] Oncology and Hematology - [place] [address] [facility] [address] [place] [address] Lewis Stanley MD [address] [facility] [address] [place] [address] Health Maintenance Due Date Last Done Comments DIABETES ANNUAL RETINAL EXAM 08/18/1981 DIABETES MICROALBUMIN ANNUAL SCREEN 08/18/1981 LDL CHOLESTEROL ANNUAL 08/18/1981 COLORECTAL SCREENING 08/18/2008 Colorectal Cancer Screening 08/18/2008 FIT-DNA Q 3 years 08/18/2008 FIT/FOBT Q 1 year 08/18/2008 Flex Sig/CT Colonography Q 5 years 08/18/2008 Lung Cancer Screening 08/18/2013 ZOSTER VACCINE (1 of 2) 08/18/2013 RSV VACCINE (60+ or ) (1 - Risk 60-74 years 1-dose series) 2023 INFLUENZA VACCINE (#1) 2023 DIABETES ANNUAL FOOT EXAM 02/11/2024 02/10/2023 DIABETES HBA1C Q 6 MONTHS 03/15/20242023, 06/02/2023, 10/28/2022 DTAP/TDAP/TD VACCINES (2 - T d or Tdap) 10/06/2031 10/05/2021 HEPATITIS B VACCINES Aged Out No long er eligible based on patient's age to complete this topic Insurance [facility] Member Subscriber Plan / Payer ( fective 2020-Present) Name:Sean Cueto Jr. Relation to Subscriber:Self Name:Sean Cueto Jr. Payer ID:[id number] (NA) Type:HMO Address: [address] [place] [id number] [facility] Care Teams De Icer Installer Relationship Specialty Start Date End Date Cain Mendoza MD [facility] [place] [id number] PCP - General Family Practice 12/17/22
--- OUTSIDE RECORDS SUMMARY | 2024-07-09 17:49 | XMS_ITS | Encounter Summary ---
Author Organization [facility] Care Team Providers Care Manager Marketing Communications Name Role Phone Cain Mendoza MD Primary Care Provider [phone] Encounter Details Date Type Department Care Team (Latest Contact Info) Description 10/06/2017 Orders Only [facility] CLINCONV ProviderOscar MD [address] [place] [address] Social History Tobacco Use Types Packs/Day Years Used Date Smoking Tobacco: Never Assessed Alcohol Use Standard Drinks/Week Comments No 0 (1 standard drink = 0.6 oz pur e alcohol) Sex and Gender Information Value Date Recorded Sex Assigned at Not on file Legal Sex Male 12:39 PM RN LAB Gender Identity Not on file Sexual Orientation [...] on filedocumented in this encounter Care Teams Manager Marketing Communications Relationship Specialty Start Date End Date Cain Mendoza MD [address] [address] PCP - General 02/03/11 documented as of this encounter
--- OUTSIDE RECORDS SUMMARY | 2024-07-09 17:49 | XMS_ITS | Clinical Summary ---
Author Organization [facility] [address] [facility] tt Address [address] [place] [address] Care Team Providers Care Gis Instructor Name Role Phone Cain Mendoza MD Primary Care Provider [phone] Allergies Active Allergy Reactions Criticality Noted Date [...] diabetic peripheral angiopathy with gangrene, unspecified whether intermediate insulin use (HCC) One Touch Ultra Test Strips Check blood sugar twice daily Dx: E11.52 100 strip 11 5 Active blood-glucose meter miscIndications: Type 2 diabetes mellitus with diabetic peripheral angiopathy with gangrene, unspecified whether intermediate insulin use (HCC) One touch Ultra Meter [...] 20 Units under the skin every morning 5 Active Active Problems Problem Noted Date Diagnosed Date Hypertension associated with type 2 diabetes deedee litus 02/10/2023 Assessment & Plan (05/14/2024 10:05 AM SOFT HAT BINDER): Chronic problem. Elevated upon arrival today. Currently taking Lisinopril 40mg, metoprolol XL 100mg daily, triamterene-HCTZ 37.5-25mg. Assessment & Plan (09/14/2023 10:10 AM CDT): Chronic problem, improved on recheck. Continue lisinopril, metoprolol, Maxzide, furosemide, diltiazem. Assessment & Plan (06/02/2023 12:31 PM SOFT HAT BINDER): Chronic, well-controlled. Continue lisinopril Assessment & Plan (02/10/2023 10:37 AM SOFT HAT BINDER): Chronic problem. Elevated upon arrival today. Currently taking Lisinopril 40mg, metoprolol XL 100mg daily, triamterene-HCTZ 37.5-25mg. Class 2 severe obesity due t o excess calories with serious comorbidity and body mass index (BMI) of 35.0 to 35.9 in adult 02/10/2023 Assessment & Plan (02/10/2023 3:18 PM SOFT HAT BINDER): Actively working on weight loss. Difficulty w/exercise d/t chronic back pain. Discussed healthy diet and importance of regular physical activity (20- 30min/day, 150min/wk). Hyperlipidemia associated with type 2 diabetes cal epstein 10/28/2022 Assessment & Plan (05/14/2024 10:04 AM SOFT HAT BINDER): Chronic problem. Near goal on current Atorvastatin 40mg & fenofibrate 135mg. Last lipid panel: 01/10/24 LDL=89, SR=090. Assessment & Plan (01/10/2024 1:15 PM CDT): Chronic, stable. Update lipid profile. Continue statin therapy with atorvastatin 40 mg daily Assessment & Plan (09/14/2023 10:10 AM CDT): Chronic problem. On statin therapy, no changes. Assessment & Plan (06/02/2023 12:31 PM SOFT HAT BINDER): Chronic, stable. Continue combination therapy of atorvastatin 40 mg daily with fenofibrate Diet and exercise advised Assessment & Plan (02/10/2023 10:38 AM SOFT HAT BINDER): Chronic problem. Near goal on current Atorvastatin 40mg & fenofibrate 135mg. Last lipid panel: 10/28/22 LDL=84, BE=450. Assessment & Plan (10/28/2022 3:49 PM CDT): LDL goal under 80 Update lipid profile Continue atorvastatin 40 mg daily Persistent proteinuria 10/02/2018 Chronic mastoiditis, right ear 01/25/2018 Conductive hearing loss of l eft ear with unrestricted hearing of right ear 10/06/2017 Chronic allergic rhinitis due to pollen 10/07/19 18 Morbid (severe) obesity due to excess calories 1 05/11/2016 Mixed hearing loss, bilateral 03/10/2017 snf current use of insulin 03/10/2017 Body mass index (BMI) 45.0-49.9, adult 7 Chronic ethmoidal sinusitis 04/23/2016 Type 2 diabetes mellitus 08/18/2013 Overview (07/08/2016): DMII WO CMP NT ST UNCNTR Assessment & Plan (05/14/2024 10:27 AM SOFT HAT BINDER): Chronic problem. A1c at goal/stable today at 6.5%. no changes at this time. Current medications: Jardiance 25mg daily Metformin 1000mg twice daily Trulicity 4.5 mg weekly (PAP) Toujeo 15 units daily (PAP) Regular insulin 10 units for blood sugar over 200 (rarely uses) UTD on labs. DM eye exam completed 12/16/22 mild NPDR wo DME [facility] Favio Abarca. Rosemary Caceres Carbon 04/16/24. Letter sent to [...] Trulicity. Assessment & Plan (06/02/2023 12:30 PM SOFT HAT BINDER): Chronic, well-controlled with risk of hypoglycemia Stop Toujeo Continue Jardiance 25 mg daily Continue Trulicity Patient to call if blood glucose persistently increased to over 150 Assessment & Plan (02/10/2023 11:13 AM SOFT HAT BINDER): Chronic problem. A1c at goal/stable today at 5.9%. Current medications: Jardiance 25mg daily Metformin 1000mg daily Trulicity 3mg weekly Toujeo 15 units daily Regular insulin 10 units for blood sugar over 150 (rarely uses) UTD on labs. DM eye exam completed at [facility]. Letter sent to get copy of [...] Type Department Care Team Description 06/06/2024 Telephone [facility] Medical [facility] Diabetes and Endocrinology [address] [place] [address] [phone] Kaitlynn Vivas NP Request for Toujeo 05/28/2024 Telephone [facility] Medical [facility] Diabetes and Endocrinology [address] [place] [address] [phone] Kaitlynn Vivas, FRANCHISE DEVELOPMENT MANAGER Med Management (Trulicity Pt Assistance) 05/22/2024 Orders Only [facility] Diabetes and Endocrinology [address] [place] [address] [phone] Provider, MD Oscar 05/14/2024 10:00 AM SOFT HAT BINDER Office Visit [facility] Medical [facility] Diabetes and Endocrinology [address] [place] [address] [phone] Kaitlynn iVvas NP Type 2 diabetes mellitus with hyperglycemia, with long-term current use of insulin (HCC) (Primary Dx); Hypertension associated with type 2 diabetes mellitus (HCC); Hyperlipidemia associated with type 2 diabetes mellitus (HCC) 04/25/2024 Telephone [facility] Diabetes and Endocrinology [address] [place] [phone] Kaitlynn Vivas NP PCP Callback Request - Patient from Last 3 Months Surgical History Surgery [...] on file Legal Sex Male 12:39 PM SOFT HAT BINDER Gender Identity Not on file Sexual Orientation Straight 01/10/2024 11 :32 AM CDT Obstetrics History Last Filed Vital Signs Vital Sign Reading Time Taken Comments Blood Pressure 136/72 05/14/2024 9:52 AM SOFT HAT BINDER Pulse 77 05/14/2024 9:52 AM SOFT HAT BINDER Temperature 36.2 C (97.1 F) 03/18/2020 9:01 AM SOFT HAT BINDER Respiratory Rate 20 01/10/2024 11:33 AM CDT Oxygen Saturation 96% 03/18/2020 9:01 AM SOFT HAT BINDER Inhaled Oxygen Concentration - - Weight 120.2 kg (265 lb) 05/14/2024 9:52 AM SOFT HAT BINDER Height 172.7 cm (5' 7.99 ) 05/14/2024 9:52 AM CS T Body Mass Index 40.3 05/14/2024 9:52 AM SOFT HAT BINDER Plan of Treatment Health Maintenance Due Date Last Done Comments Colon Cancer Screening-Colonoscopy 1965 Hepatitis C Screening 1965 Prostate Cancer Screening-PSA 1965 Hepatitis B Screening 08/18/1981 Regular Well Visit/Exam 18-64 08/18/1981 Pneumococcal vaccine <65 (1 of 2 - PCV) 08/18/1982 Zoster Vaccine (1 of 2) 08/18/2013 Covid-19 Vaccine ( - 2023-2 5 season) 2023 02/03/2022, 03/13/2021, 07/14/2020, Additional history exists Influenza Vaccine (#1) 2023 Hemoglobin A1C 11/11/2024 05/14/2024, 1011/2023, 09/14/2023, Additional history exists Albumin Creatinine Ratio, Urine 01/09/2025 , 11/01/2022 Depression Screening 01/09/2025 01/10/2024, 01/10/20 24 Lipid Panel 01/09/2025 01/10/2024, 10/28/2022 eGFR 01/09/2025 01/10/2024, 10/28/2022 Dilated Eye Exam 04/16/2025 04/16/2024, 12/16/2022 Foot Exam 05/14/2025 05/14/2024, 02/10/2023 DTaP/Tdap/Td Vaccine (3 - Td or Tdap) 10/06/2031 10/05/2021, 09/30/2017 Procedures Procedure Name Priority Date/Time Associated Diagnosis Comments POCT GLUCOSE Routine 05/14/2024 9:55 AM SOFT HAT BINDER Type 2 diabetes mellitus with hyperglycemia, with long-term current use of insulin (HCC) POCT HEMOGLOBIN A1C Routine 05/14/2024 9 :55 AM SOFT HAT BINDER Type 2 diabetes mellitus with hyperglycemia, with long-term current use of insulin (HCC) DIABETES EYE EXAM Routine 04/16/2024 9:12 AM SOFT HAT BINDER EGFR Routine 01/10/2024 12:21 PM CDT Type 2 diabetes mellitus with diabetic peripheral angiopathy with gangrene, unspecified whether intermediate insulin use (HCC) LIPID PANEL Routine 01/10/2024 12:21 PM CDT Type 2 diabetes mellitus with diabetic peripheral angiopathy with gangrene, unspecified whether intermediate insulin use (HCC) ALBUMIN CREATININE RATIO, URINE Routine 01/10/2024 12:21 PM CDT Type 2 diabetes mellitus with diabetic peripheral angiopathy with gangrene, unspecified whether intermediate insulin use (HCC) from Last 3 Months or Most Recently Relevant to Health Maintenance Results * (ABNORMAL) POCT hemoglobin A1c (05/14/2024 9:55 AM SOFT HAT BINDER) Hemoglobin A1C, POC 6.5 4.0 - 5.6 % Blood 05/14/2024 9:55 AM SOFT HAT BINDER us Kaitlynn Vivas NP POINT OF CARE TEST ORDERA BLES Final Result * (ABNORMAL) POCT glucose (05/14/2024 9:55 AM SOFT HAT BINDER) Glucose Blood, POC 145 mg/dL Blood 05/14/2024 9:55 AM SOFT HAT BINDER us Kaitlynn Vivas NP POINT OF CARE TEST ORDERA BLES Final Result * DIABETES EYE EXAM (04/16/2024 9:12 AM SOFT HAT BINDER) us Historical Provider HEALTH MAINTENANCE Final Result * [...] ORDERABLES Final Resul t Performing Organization Address City/[facility] Co de Phone Number LEX NASCIMENTO [address] [place] [address] * (ABNORMAL) Albumin Creatinine Ratio, Urine (01/10/2024 [...] ORDERABLES Final Resul t Performing Organization Address City/State/[facility] Co de Phone Number LEX NASCIMENTO [address] [place] [address] * (ABNORMAL) Lipid panel (01/10/2024 12:21 PM [...] NCEP Expert Panel. Circulation 2004;110:227 3. Dontrell M et al. CORDELL Cardiol. 2020 August 02;5(5):540-548. [...] BLOOD ORDERABLES Final Resul t LEX NASCIMENTO [address] Department [place] [address] from Last 3 Months or Most Recently Relevant to Health Maintenance Insurance [facility] Care Teams Gis Instructor Relationship Specialty Start Date End Date Cain Mendoza MD [address] [facility] [address] [place], [place] [phone] PCP - General 02/03/11
--- OUTSIDE RECORDS SUMMARY | 2024-07-09 17:49 | XMS_ITS | Encounter Summary ---
Author Organization [facility] Address [address] [place] [address] Care Team Providers Care Derrick Helper Name Role Phone Cain Mendoza MD Primary Care Provider Reason for Visit * Reason Comments Medication Refill Encounter Details Date Type Department Care Team (Late Contact Info) Description 12/01/2012 Refill [facility] [address] [facility] [address] [place] [address] Madeline Talley MD [address] [place] [address] Social History Tobacco Use Types Packs/Day Years Used Date Smoking Tobacco: Never Assessed Sex and Gender Information Value Date Recorded Sex Assigned at Not on file Legal Sex Male 4:37 AM 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 AND 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 Gender Identity Not on file Sexual Orientation Not on file documented as of this encounter Miscellaneous Notes * Telephone Encounter - Rachell Russell - 12/02/2012 8:41 AM CDT Not our pt documented in this encounter Plan of Treatment Upcoming Encounters Date Type Department Care Team (Late st Contact Info) Description 08/24/2024 8:30 AM CDT Office Visit [facility] Oncology and Hematology - [place] [address] [facility] [address] [place] [address] Lewis Stanley MD [address] [facility] [address] [place] [address] documented as of this encounter Visit Diagnoses Not on filedocumented in this encounter Care Teams Derrick Helper Relationship Specialty Start Date End Date Cain Mendoza MD [address] [place] [address] PCP - General Family Practice 12/17/22 documented as of this encounter
--- OUTSIDE RECORDS SUMMARY | 2024-07-09 17:49 | XMS_ITS | Encounter Summary ---
Author Organization [facility] Address [address] [place] [address] Care Team Providers Care Disposition Clerk Name Role Phone Cain Mendoza MD Primary Care Provider [phone] Encounter Details Date Type Department Care Team (Late st Contact Info) Description 02/21/2001 Outpatient Historical [place] [address] [facility] [place] [address] Social History Tobacco Use Types Packs/Day Years Used Date Smoking Tobacco: Never Assessed Sex and Gender Information Value Date Recorded Sex Assigned at Not on file Legal Sex Male 4:37 AM TUB MENDER Gender Identity Not on file Sexual Orientation Not on file documented as of this encounter Plan of Treatment Upcoming Encounters Date Type Department Care Team (Late st Contact Info) Description 08/24/2024 8:30 AM CDT Office Visit [facility] Oncology and Hematology - [place] [address] [facility] [address] [place] [address] Lewis Stanley MD [address] [facility] [address] [place] [address] documented as of this encounter Visit Diagnoses Not on filedocumented in this encounter Care Teams Disposition Clerk Relationship Specialty Start Date End Date Cain Mendoza MD [address] [place] [phone] PCP - General Family Practice 12/17/22 documented as of this encounter
--- OUTSIDE RECORDS SUMMARY | 2024-07-09 17:49 | XMS_ITS | Clinical Summary ---
Author Organization [facility] Address [address] [place] [phone] Phone Care Team Providers Care Mechanic Field Service Name Role Phone Julio Puentes MD Primary Care Provider [phone] Allergies Active Allergy Reactions Criticality Noted Date [...] 3 TIMES DAILY 02/06/2020 Active UltiCare Pen Chapman 29G X 12.7MM misc USE 1 PEN [...] 72 02/03/2022 11:18 AM CDT Temperature 36.2 C (97.1 F) 02/03/2022 11:18 AM CDT Respiratory Rate - - Oxygen Saturation - [...] 1 - PPSV23 ) 08/18/1982 Influenza Vaccine (Season Ended) 2024 Care Teams Mechanic Field Service Relationship Specialty Start Date End Date Julio Puentes MD [address] [place] [phone] PCP - General Family Medicine 10/02/18
--- OUTSIDE RECORDS SUMMARY | 2024-07-09 17:49 | XMS_ITS | Encounter Summary ---
Author Organization [facility] Address 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 Gender Identity Not on file Sexual Orientation Not on file documented as of this encounter Plan of Treatment Upcoming Encounters Date Type Department Care Team (Late st Contact Info) Description 08/24/2024 8:30 AM CDT Office Visit [facility] Oncology and Hematology - [place] [address] [facility] [address] [place] [address] Lewis Stanley MD [address] [facility] [address] [place] [address] documented as of this encounter Visit Diagnoses Diagnosis Pain in limb- Primary documented in this encounter Care Teams Automatic Grinding Machine Operator Relationship Specialty Start Date End Date Cain Mendoza MD [facility] [place] [phone] PCP - General Family Practice 12/17/22 documented as of this encounter
== END ==
PROVIDERS: PCP Nurse Practitioner Family; Visit Provider Nurse Practitioner Family
DX: R05.9 Cough, unspecified (principal)
CPT/HCPCS: 71046

== ENCOUNTER 2024-07-11 08:45 | Outpatient (CLI) | payer OTHER, SELFPAY ==
--- OUTSIDE RECORDS SUMMARY | 2024-07-11 09:16 | XMS_ITS | Clinical Summary ---
Author Organization [facility] Address [address] [place] [address] Phone Care Team Providers Care Cork Grinder Name Role Phone Jabier Acosta Primary Care Provider [phone] Allergies Active Allergy Reactions Criticality Noted Date [...] file Insurance MEDICARE C [employer] Care Teams Cork Grinder Relationship Specialty Start Date End Date Jabier Acosta DO [address] [facility] [address] [place] [address] PCP - General Internal Medicine 10/05/21
--- OUTSIDE RECORDS SUMMARY | 2024-07-11 09:16 | XMS_ITS | Encounter Summary ---
Author Organization [facility] Facility Care Team Providers Care River Transportation Worker Name Role Phone Cain Mendoza MD Primary Care Provider [phone] Encounter Details Date Type Department Care Team (Latest Contact Info) Description 10/06/2017 Orders Only [facility] CLINCONV ProviderOscar MD [address] [place] [address] Social History Tobacco Use Types Packs/Day Years Used Date Smoking Tobacco: Never Assessed Alcohol Use Standard Drinks/Week Comments No 0 (1 standard drink = 0.6 oz pur e alcohol) Sex and Gender Information Value Date Recorded Sex Assigned at Not on file Legal Sex Male 12:39 PM BROKE MAN Gender Identity Not on file Sexual Orientation [...] on filedocumented in this encounter Care Teams River Transportation Worker Relationship Specialty Start Date End Date Cain Mendoza MD [address] [address] PCP - General 02/03/11 documented as of this encounter
--- OUTSIDE RECORDS SUMMARY | 2024-07-11 09:16 | XMS_ITS | Clinical Summary ---
Author Organization [facility] [address] [facility] Address [address] [place] [address] Care Team Providers Care Glassware Engraver Name Role Phone Cain Mendoza MD Primary Care Provider [phone] Allergies Active Allergy Reactions Criticality Noted Date [...] diabetic peripheral angiopathy with gangrene, unspecified whether half-way insulin use (HCC) One Touch Ultra Test Strips Check blood sugar twice daily Dx: E11.52 100 strip 11 5 Active blood-glucose meter miscIndications: Type 2 diabetes mellitus with diabetic peripheral angiopathy with gangrene, unspecified whether half-way insulin use (HCC) One touch Ultra Meter [...] 02/10/2023 Assessment & Plan (05/14/2024 10:05 AM BUNCHER MACHINE): Chronic problem. Elevated upon arrival today. Currently taking Lisinopril 40mg, metoprolol XL 100mg daily, triamterene-HCTZ 37.5-25mg. Assessment & Plan (09/14/2023 10:10 AM CDT): Chronic problem, improved on recheck. Continue lisinopril, metoprolol, Maxzide, furosemide, diltiazem. Assessment & Plan (06/02/2023 12:31 PM BUNCHER MACHINE): Chronic, well-controlled. Continue lisinopril Assessment & Plan (02/10/2023 10:37 AM BUNCHER MACHINE): Chronic problem. Elevated upon arrival today. Currently taking Lisinopril 40mg, metoprolol XL 100mg daily, triamterene-HCTZ 37.5-25mg. Class 2 severe obesity due t o excess calories with serious comorbidity and body mass index (BMI) of 35.0 to 35.9 in adult 02/10/2023 Assessment & Plan (02/10/2023 3:18 PM BUNCHER MACHINE): Actively working on weight loss. Difficulty w/exercise d/t chronic back pain. Discussed healthy diet and importance of regular physical activity (20- 30min/day, 150min/wk). Hyperlipidemia associated with type 2 diabetes cal epstein 10/28/2022 Assessment & Plan (05/14/2024 10:04 AM BUNCHER MACHINE): Chronic problem. Near goal on current Atorvastatin 40mg & fenofibrate 135mg. Last lipid panel: 01/10/24 LDL=89, CI=478. Assessment & Plan (01/10/2024 1:15 PM CDT): Chronic, stable. Update lipid profile. Continue statin therapy with atorvastatin 40 mg daily Assessment & Plan (09/14/2023 10:10 AM CDT): Chronic problem. On statin therapy, no changes. Assessment & Plan (06/02/2023 12:31 PM BUNCHER MACHINE): Chronic, stable. Continue combination therapy of atorvastatin 40 mg daily with fenofibrate Diet and exercise advised Assessment & Plan (02/10/2023 10:38 AM BUNCHER MACHINE): Chronic problem. Near goal on current Atorvastatin 40mg & fenofibrate 135mg. Last lipid panel: 10/28/22 LDL=84, MH=932. Assessment & Plan (10/28/2022 3:49 PM CDT): LDL goal under 80 Update lipid profile Continue atorvastatin 40 mg daily Persistent proteinuria 10/02/2018 Chronic mastoiditis, right ear 01/25/2018 Conductive hearing loss of l eft ear with unrestricted hearing of right ear 10/06/2017 Chronic allergic rhinitis due to pollen 10/07/19 18 Morbid (severe) obesity due to excess calories 1 05/11/2016 Mixed hearing loss, bilateral 03/10/2017 FDC current use of insulin 03/10/2017 Body mass index (BMI) 45.0-49.9, adult 7 Chronic ethmoidal sinusitis 04/23/2016 Type 2 diabetes mellitus 08/18/2013 Overview (07/08/2016): DMII WO CMP NT ST UNCNTR Assessment & Plan (05/14/2024 10:27 AM BUNCHER MACHINE): Chronic problem. A1c at goal/stable today at [...] Trulicity. Assessment & Plan (06/02/2023 12:30 PM BUNCHER MACHINE): Chronic, well-controlled with risk of hypoglycemia Stop Toujeo Continue Jardiance 25 mg daily Continue Trulicity Patient to call if blood glucose persistently increased to over 150 Assessment & Plan (02/10/2023 11:13 AM BUNCHER MACHINE): Chronic problem. A1c at goal/stable today at 5.9%. Current medications: Jardiance 25mg daily Metformin 1000mg daily Trulicity 3mg weekly Toujeo 15 units daily Regular insulin 10 units for blood sugar over 150 (rarely uses) UTD on labs. DM eye exam completed at [facility]. Letter sent to get copy of [...] Type Department Care Team Description 06/06/2024 Telephone [facility] Medical [facility] Diabetes and Endocrinology [address] [place] [address] [phone] Kaitlynn Vivas NP Request for Toujeo 05/28/2024 Telephone [facility] Medical [facility] Diabetes and Endocrinology [address] [place] [address] [phone] Kaitlynn Vivas, FUNDRAISING MANAGER Med Management (Trulicity Pt Assistance) 05/22/2024 Orders Only [facility] Diabetes and Endocrinology [address] [place] [address] [phone] Provider, MD Oscar 05/14/2024 10:00 AM BUNCHER MACHINE Office Visit [facility] Medical [facility] Diabetes and Endocrinology [address] [place] [address] [phone] Kaitlynn Vivas NP Type 2 diabetes mellitus with hyperglycemia, with long-term current use of insulin (HCC) (Primary Dx); Hypertension associated with type 2 diabetes mellitus (HCC); Hyperlipidemia associated with type 2 diabetes mellitus (HCC) 04/25/2024 Telephone [facility] Diabetes and Endocrinology [address] [place] [phone] Kaitlynn Vivas NP PCP Callback Request - [...] on file Legal Sex Male 12:39 PM BUNCHER MACHINE Gender Identity Not on file Sexual Orientation Straight 01/10/2024 11 :32 AM CDT Obstetrics History Last Filed Vital Signs Vital Sign Reading Time Taken Comments Blood Pressure 136/72 05/14/2024 9:52 AM BUNCHER MACHINE Pulse 77 05/14/2024 9:52 AM BUNCHER MACHINE Temperature 36.2 C (97.1 F) 03/18/2020 9:01 AM BUNCHER MACHINE Respiratory Rate 20 01/10/2024 11:33 AM CDT Oxygen Saturation 96% 03/18/2020 9:01 AM BUNCHER MACHINE Inhaled Oxygen Concentration - - Weight 120.2 kg (265 lb) 05/14/2024 9:52 AM BUNCHER MACHINE Height 172.7 cm (5' 7.99 ) 05/14/2024 9:52 AM CS T Body Mass Index 40.3 05/14/2024 9:52 AM BUNCHER MACHINE Plan of Treatment Health Maintenance Due Date [...] Comments POCT GLUCOSE Routine 05/14/2024 9:55 AM BUNCHER MACHINE Type 2 diabetes mellitus with hyperglycemia, with long-term current use of insulin (HCC) POCT HEMOGLOBIN A1C Routine 05/14/2024 9 :55 AM BUNCHER MACHINE Type 2 diabetes mellitus with hyperglycemia, with long-term current use of insulin (HCC) DIABETES EYE EXAM Routine 04/16/2024 9:12 AM BUNCHER MACHINE EGFR Routine 01/10/2024 12:21 PM CDT Type 2 diabetes mellitus with diabetic peripheral angiopathy with gangrene, unspecified whether half-way insulin use (HCC) LIPID PANEL Routine 01/10/2024 12:21 PM CDT Type 2 diabetes mellitus with diabetic peripheral angiopathy with gangrene, unspecified whether half-way insulin use (HCC) ALBUMIN CREATININE RATIO, URINE Routine 01/10/2024 12:21 PM CDT Type 2 diabetes mellitus with diabetic peripheral angiopathy with gangrene, unspecified whether half-way insulin use (HCC) from Last 3 Months or Most Recently Relevant to Health Maintenance Results * (ABNORMAL) POCT hemoglobin A1c (05/14/2024 9:55 AM BUNCHER MACHINE) Hemoglobin A1C, POC 6.5 4.0 - 5.6 % Blood 05/14/2024 9:55 AM BUNCHER MACHINE us Kaitlynn Vivas NP POINT OF CARE TEST ORDERA BLES Final Result * (ABNORMAL) POCT glucose (05/14/2024 9:55 AM BUNCHER MACHINE) Glucose Blood, POC 145 mg/dL Blood 05/14/2024 9:55 AM BUNCHER MACHINE us Kaitlynn Vivas NP POINT OF CARE TEST ORDERA BLES Final Result * DIABETES EYE EXAM (04/16/2024 9:12 AM BUNCHER MACHINE) us Historical Provider HEALTH MAINTENANCE Final Result [...] ORDERABLES Final Resul t Performing Organization Address City/[facility] Co de Phone Number [place] [address] [place] [address] * (ABNORMAL) Albumin Creatinine Ratio, Urine (01/10/2024 [...] ORDERABLES Final Resul t Performing Organization Address City/State/[facility] Co de Phone Number [place] [address] Department [place] [address] * (ABNORMAL) Lipid panel (01/10/2024 12:21 PM [...] BLOOD ORDERABLES Final Resul t [place] [address] Department [place] [address] from Last 3 Months or Most Recently Relevant to Health Maintenance Insurance [facility] Care Teams Glassware Engraver Relationship Specialty Start Date End Date Cain Mendoza MD [address] [facility] [address] [place], [place] [address] PCP - General 02/03/11
--- OUTSIDE RECORDS SUMMARY | 2024-07-11 09:16 | XMS_ITS | Encounter Summary ---
Author Organization [facility] Address 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 [address] [place] [address] Lewis Stanley MD [address] [facility] [address] [place] [address] documented as of this encounter Visit Diagnoses Not on filedocumented in this encounter Care Teams Toxicology Supervisor Relationship Specialty Start Date End Date Cain Mendoza MD [address] [place] [phone] PCP - General Family Practice 12/17/22 documented as of this encounter
--- OUTSIDE RECORDS SUMMARY | 2024-07-11 09:16 | XMS_ITS | Clinical Summary ---
Author Organization [facility] Address [address] [place] [address] Care Team Providers Care Final Inspector And Tester Name Role Phone Cain Mendoza MD Primary Care Provider [phone] Allergies Active Allergy Reactions Criticality Noted Date [...] 9 Active fluticasone propionate (FLONASE) 50 mcg/spray [place], Suspension nasal inhaler Administer 1 [place] in each nostril. 9 Active ibuprofen (MOTRIN) [...] Take 100 mg by mouth. Active Insulin [place], Disposable, (UltiCare Pen Needle) 29 gauge x [...] on file Legal Sex Male 4:37 AM LAY OUT MAKER Gender Identity Not on file Sexual Orientation [...] Description 08/24/2024 8:30 AM CDT Office Visit [facility] Oncology and Hematology - [place] [address] [facility] [address] [place] [address] Lewis Stanley MD [address] [facility] [address] [place] [address] Health Maintenance Due Date Last [...] patient's age to complete this topic Insurance [facility] Member Subscriber Plan / Payer ( fective 2020-Present) Name:Sean Cueto Jr. Relation to Subscriber:Self Name:Sean Cueto Jr. Payer ID:[id number] (NA) Type:HMO Address: [address] [place] [id number] [facility] Care Teams Final Inspector And Tester Relationship Specialty Start Date End Date Cain Mendoza MD [facility] [place] [phone] PCP - General Family Practice 12/17/22
--- OUTSIDE RECORDS SUMMARY | 2024-07-11 09:16 | XMS_ITS | Referral Summary ---
Author Organization [facility] [address] Address [address] [place] [address] Care Team Providers Care Machinist First Class Name Role Phone Cain Mendoza MD Primary Care Provider [phone] Encounters Date Type Department Care Team Description 06/06/2024 Telephone [facility] Diabetes and Endocrinology [address] [place] [phone] Kaitlynn Vivas NP Request for Toujeo 05/28/2024 Telephone [facility] Diabetes and Endocrinology [address] [place] [phone] Kaitlynn Vivas NP [facility] ([facility] Pt [facility]) 05/22/2024 Orders Only [facility] Diabetes and Endocrinology [address] [place] [phone] ProviderOscar MD 05/14/2024 10:00 AM PIGSKIN TRIMMER Office Visit [facility] Diabetes and Endocrinology [address] [place] [phone] Kaitlynn Vivas NP Type 2 diabetes mellitus with hyperglycemia, with long-term current use of insulin (HCC) (Primary Dx); Hypertension associated with type 2 diabetes mellitus (HCC); Hyperlipidemia associated with type 2 diabetes mellitus (HCC) 04/25/2024 Telephone [facility] Diabetes and Endocrinology [address] [place] [phone] Kaitlynn Vivas NP PCP Callback Request [...] diabetic peripheral angiopathy with gangrene, unspecified whether usp insulin use (HCC) One Touch Ultra Test Strips Check blood sugar twice daily Dx: E11.52 100 strip 11 5 Active blood-glucose meter miscIndications: Type 2 diabetes mellitus with diabetic peripheral angiopathy with gangrene, unspecified whether usp insulin use (HCC) One touch Ultra Meter [...] 02/10/2023 Assessment & Plan (05/14/2024 10:05 AM PIGSKIN TRIMMER): Chronic problem. Elevated upon arrival today. Currently taking Lisinopril 40mg, metoprolol XL 100mg daily, triamterene-HCTZ 37.5-25mg. Assessment & Plan (09/14/2023 10:10 AM CDT): Chronic problem, improved on recheck. Continue lisinopril, metoprolol, Maxzide, furosemide, diltiazem. Assessment & Plan (06/02/2023 12:31 PM PIGSKIN TRIMMER): Chronic, well-controlled. Continue lisinopril Assessment & Plan (02/10/2023 10:37 AM PIGSKIN TRIMMER): Chronic problem. Elevated upon arrival today. Currently taking Lisinopril 40mg, metoprolol XL 100mg daily, triamterene-HCTZ 37.5-25mg. Class 2 severe obesity due t o excess calories with serious comorbidity and body mass index (BMI) of 35.0 to 35.9 in adult 02/10/2023 Assessment & Plan (02/10/2023 3:18 PM PIGSKIN TRIMMER): Actively working on weight loss. Difficulty w/exercise d/t chronic back pain. Discussed healthy diet and importance of regular physical activity (20- 30min/day, 150min/wk). Hyperlipidemia associated with type 2 diabetes cal merrillmitra 10/28/2022 Assessment & Plan (05/14/2024 10:04 AM PIGSKIN TRIMMER): Chronic problem. Near goal on current Atorvastatin 40mg & fenofibrate 135mg. Last lipid panel: 01/10/24 LDL=89, LY=535. Assessment & Plan (01/10/2024 1:15 PM CDT): Chronic, stable. Update lipid profile. Continue statin therapy with atorvastatin 40 mg daily Assessment & Plan (09/14/2023 10:10 AM CDT): Chronic problem. On statin therapy, no changes. Assessment & Plan (06/02/2023 12:31 PM PIGSKIN TRIMMER): Chronic, stable. Continue combination therapy of atorvastatin 40 mg daily with fenofibrate Diet and exercise advised Assessment & Plan (02/10/2023 10:38 AM PIGSKIN TRIMMER): Chronic problem. Near goal on current Atorvastatin 40mg & fenofibrate 135mg. Last lipid panel: 10/28/22 LDL=84, PL=194. Assessment & Plan (10/28/2022 3:49 PM CDT): LDL goal under 80 Update lipid profile Continue atorvastatin 40 mg daily Persistent proteinuria 10/02/2018 Chronic mastoiditis, right ear 01/25/2018 Conductive hearing loss of l eft ear with unrestricted hearing of right ear 10/06/2017 Chronic allergic rhinitis due to pollen 10/07/19 18 Morbid (severe) obesity due to excess calories 1 05/11/2016 Mixed hearing loss, bilateral 03/10/2017 senior living current use of insulin 03/10/2017 Body mass index (BMI) 45.0-49.9, adult 7 Chronic ethmoidal sinusitis 04/23/2016 Type 2 diabetes mellitus 08/18/2013 Overview (07/08/2016): DMII WO CMP NT ST UNCNTR Assessment & Plan (05/14/2024 10:27 AM PIGSKIN TRIMMER): Chronic problem. A1c at goal/stable today at [...] Trulicity. Assessment & Plan (06/02/2023 12:30 PM PIGSKIN TRIMMER): Chronic, well-controlled with risk of hypoglycemia Stop Toujeo Continue Jardiance 25 mg daily Continue Trulicity Patient to call if blood glucose persistently increased to over 150 Assessment & Plan (02/10/2023 11:13 AM PIGSKIN TRIMMER): Chronic problem. A1c at goal/stable today at 5.9%. Current medications: Jardiance 25mg daily Metformin 1000mg daily Trulicity 3mg weekly Toujeo 15 units daily Regular insulin 10 units for blood sugar over 150 (rarely uses) UTD on labs. DM eye exam completed at [facility]. Letter sent to get copy of [...] on file Legal Sex Male 12:39 PM PIGSKIN TRIMMER Gender Identity Not on file Sexual Orientation Straight 01/10/2024 11 :32 AM CDT Last Filed Vital Signs Vital Sign Reading Time Taken Comments Blood Pressure 136/72 05/14/2024 9:52 AM PIGSKIN TRIMMER Pulse 77 05/14/2024 9:52 AM PIGSKIN TRIMMER Temperature 36.2 C (97.1 F) 03/18/2020 9:01 AM PIGSKIN TRIMMER Respiratory Rate 20 01/10/2024 11:33 AM CDT Oxygen Saturation 96% 03/18/2020 9:01 AM PIGSKIN TRIMMER Inhaled Oxygen Concentration - - Weight 120.2 kg (265 lb) 05/14/2024 9:52 AM PIGSKIN TRIMMER Height 172.7 cm (5' 7.99 ) 05/14/2024 9:52 AM CS T Body Mass Index 40.3 05/14/2024 9:52 AM PIGSKIN TRIMMER Plan of Treatment Not on file Procedures Procedure Name Priority Date/Time Associated Diagnosis Comments POCT GLUCOSE Routine 05/14/2024 9:55 AM PIGSKIN TRIMMER Type 2 diabetes mellitus with hyperglycemia, with long-term current use of insulin (HCC) POCT HEMOGLOBIN A1C Routine 05/14/2024 9 :55 AM PIGSKIN TRIMMER Type 2 diabetes mellitus with hyperglycemia, with long-term current use of insulin (HCC) DIABETES EYE EXAM Routine 04/16/2024 9:12 AM PIGSKIN TRIMMER EGFR Routine 01/10/2024 12:21 PM CDT Type 2 diabetes mellitus with diabetic peripheral angiopathy with gangrene, unspecified whether usp insulin use (HCC) LIPID PANEL Routine 01/10/2024 12:21 PM CDT Type 2 diabetes mellitus with diabetic peripheral angiopathy with gangrene, unspecified whether terminal gauger insulin use (HCC) ALBUMIN CREATININE RATIO, URINE Routine 01/10/2024 12:21 PM CDT Type 2 diabetes mellitus with diabetic peripheral angiopathy with gangrene, unspecified whether terminal gauger insulin use (HCC) from Last 3 Months or Most Recently Relevant to Health Maintenance Results * (ABNORMAL) POCT hemoglobin A1c (05/14/2024 9:55 AM PIGSKIN TRIMMER) Hemoglobin A1C, POC 6.5 4.0 - 5.6 % Blood 05/14/2024 9:55 AM PIGSKIN TRIMMER us Kaitlynnmarisela Vivas [employer] N[employer] POINT OF CARE TEST ORDERA BLES Final Result * (ABNORMAL) POCT glucose (05/14/2024 9:55 AM PIGSKIN TRIMMER) Glucose Blood, POC 145 mg/dL Blood 05/14/2024 9:55 AM PIGSKIN TRIMMER us Kaitlynnmarisela Vivas [employer] NURSE POINT OF CARE TEST ORDERA BLES Final Result * DIABETES EYE EXAM (04/16/2024 9:12 AM PIGSKIN TRIMMER) Historical Provider HEALTH MAINTENANCE Final Result * [...] MD LAB BLOOD ORDERABLES Final Resul t [facility] [address] Department [place] [address] * (ABNORMAL) Albumin Creatinine Ratio, [...] URINE ORDERABLES Final Resul t [place] [address] Department [place] [address] * (ABNORMAL) Lipid panel (01/10/2024 12:21 PM [...] BLOOD ORDERABLES Final Resul t [place] [address] Department [place] [address] from Last 3 Months or Most Recently Relevant to Health Maintenance Insurance [facility] Care Teams Machinist First Class Relationship Specialty Start Date End Date Cain Mendoza MD [address] [address] PCP - General 02/03/11
--- OUTSIDE RECORDS SUMMARY | 2024-07-11 09:16 | XMS_ITS | Encounter Summary ---
Author Organization [facility] Address 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 Gender Identity Not on file Sexual Orientation Not on file documented as of this encounter Plan of Treatment Upcoming Encounters Date Type Department Care Team (Late st Contact Info) Description 08/24/2024 8:30 AM CDT Office Visit [facility] Oncology and Hematology - [place] [address] [facility] [address] [place] [address] Leiws Stanley MD [address] [facility] [address] [place] [address] documented as of this encounter Visit Diagnoses Not on filedocumented in this encounter Care Teams Content Engineer Relationship Specialty Start Date End Date Cain Mendoza MD [facility] [place] [phone] PCP - General Family Practice 12/17/22 documented as of this encounter
--- OUTSIDE RECORDS SUMMARY | 2024-07-11 09:16 | XMS_ITS | Clinical Summary ---
Author Organization [facility] Address [address] [place] [phone] Phone Care Team Providers Care Sales Floor Manager Name Role Phone Julio Puentes MD Primary Care Provider [phone] Allergies Active Allergy Reactions Criticality Noted Date Comments Erythromycin 10/02/2018 Penicillamine 03/05/2019 Other reaction(s): Unknown Penicillins 10/02/2018 Tetracycline 10/02/2018 Medications insulin lispro (HumaLOG) 100 UNIT/ML injection Inject under the skin 3 (three) times a day before meals Active metFORMIN (GLUCOPHAGE) 1000 MG tablet Take 1,000 mg by mouth 2 (two) times a day with meals Active atorvastatin (LIPITOR) 40 MG tablet Take 40 mg by mouth 1 (one) time each day Active triamterene-hydr oCHLOROthiazide (DYAZIDE) 37.5-25 MG per capsule Take 1 [...] every 6 (six) hours if needed Active mometasone-formo terol (DULERA 100) 100-5 MCG/ACT inhaler Inhale 2 [...] Active TOUJEO SOLOSTAR 300 UNIT/ML solution pen-injector 9 Active traMADol-acetami nophen (ULTRACET) 37.5-325 MG per tablet 9 Active omeprazole (PriLOSEC) [address] capsule 9 Active Azelastine HCl 137 MCG/SPRAY solution 9 Active aspirin EC 81 MG EC tablet 81 mg daily Active HYDROcodone-acet aminophen (NORCO) 5-325 MG per tablet 9 Active amLODIPine (NORVASC) 10 MG tablet 0 Active metoprolol succinate XL (TOPROL-XL) 100 MG 24 hr tablet Take 100 mg by mouth 1 (one) time each day Active Cholecalciferol (VITAMIN D3) 125 MCG (5000 UT) capsule Take by mouth Active Contour Next Test test strip USE TO CHECK BLOOD SUGAR 3 TIMES DAILY 0 Active UltiCare Pen Outing 29G X 12.7MM misc USE 1 PEN NEEDLE ONCE DAILY WITH INSULIN PEN 0 Active insulin syringe-needle U-100 (SURE COMFORT INS SYR 1CC/29G) 29G X 1/2 1 ML misc 9 Active Trulicity 3 MG/0.5ML solution pen-injector INJECT 3 MG (0.5 ML) UNDER THE SKIN WEEKLY 2 Active sildenafil (VIAGRA) 100 MG tablet Take 100 mg by mouth 1 (one) time each day if needed 2 Active lisinopril (PRINIVIL) 40 MG tablet TAKE 1 TABLET BY MOUTH TWICE A DAY 180 tablet 3 2 Active Active Problems Problem Noted Date Diagnosed Date Erythrocytosis 04/28/2020 Persistent proteinuria 10/02/2018 Smoker 10/02/2018 Diabetes mellitus with renal manifestations, type II or unspecified type, uncontrolled 08/18/2013 Overview (10/02/2018): DMII WO CMP NT ST UNCNTR Immunizations Immunization Administration Dates Next Due Influenza TIV (IM) [...] at Not on file Legal Sex Male 1:53 PM MDT Gender Identity Not on file Sexual Orientation [...] ) 08/18/1982 Influenza Vaccine (Season Ended) 2024 Insurance [employer] H[employer] Care Teams Sales Floor Manager Relationship Specialty Start Date End Date Julio Puentes MD [address] [place] [address] PCP - General Family Medicine 10/02/18
--- OUTSIDE RECORDS SUMMARY | 2024-07-11 09:17 | XMS_ITS | Clinical Summary ---
Author Organization [facility] Address [address] [facility] [place] [address] Care Team Providers Care Tattoo Technician Name Role Phone Julio Puentes MD Primary Care Provider [phone] Source Comments [facility] Private Practice,non-owned Affiliates and Associated Physician Practices is amultiple site organization consisting of ambulatory clinics and hospital sitesin [place], [place], [place] and [place]. This disclosure is being madepursuant to the Care Everywhere program and may not contain all information available regarding this patient. Last updated 17.[facility] Private Practice Social History Tobacco Use Types Packs/Day Years [...] VACCINE ( - 2023-2 5 season) 2023 DEPRESSION SCREENING 04/04/2024 MEDICARE AWV CALENDAR YEAR 2024 INFLUENZA VACCINE (Season Ended) 2024 Respiratory Syncytial Virus (RSV) Vaccine Pt: [...] age to complete this topic Care Teams Tattoo Technician Relationship Specialty Start Date End Date Julio Puentes MD [address] [place] [phone] PCP - General Internal Medicine 02/23/19
--- OUTSIDE RECORDS SUMMARY | 2024-07-11 09:17 | XMS_ITS | Continuity of Care Document ---
Author Organization [facility] Address [address] [place] [address] Phone Care Team Providers Care Hat Finishing Materials Preparer Name Role Phone Yuriy Gonzales DO Unavailable Unavailable Advance Directives Directive Yes / No Effective Date File Name No Information Encounters Encounter Description Practice Location Reason(s) For Visit Diagnoses Date Provider Providers Copied on Encounter [facility], [address], [place], [place], [id number], [place] tel:[phone] [facility] No Information Christian Plummer. [address], [place], [address], [place]. tel:[phone] Family History Family Member Type Diagnosis Age At Onset No Information Payers Payer name Insurance type Covered libertarian ID Authoriza tion(s) No Information Social History [...]
--- OUTSIDE RECORDS SUMMARY | 2024-07-11 09:17 | XMS_ITS | Encounter Summary ---
Author Organization [facility] Address [address] [place] [address] Care Team Providers Care Data Recovery Planner Name Role Phone Cain Mendoza MD Primary Care Provider [phone] Encounter Details Date Type Department Care Team (Late st Contact Info) Description 03/21/2001 Outpatient Historical [facility] BEN HUSAIN BLDG Social History Tobacco Use Types Packs/Day Years Used Date Smoking Tobacco: Never Assessed Sex and Gender Information Value Date Recorded Sex Assigned at Not on file Legal Sex Male 4:37 AM GANG SUPERVISOR Gender Identity Not on file Sexual Orientation Not on file documented as of this encounter Plan of Treatment Upcoming Encounters Date Type Department Care Team (Late st Contact Info) Description 08/24/2024 8:30 AM CDT Office Visit [facility] Oncology and Hematology - [place] [address] [facility] [address] [place] [address] Lewis Stanley MD [address] [facility] [address] [place] [address] documented as of this encounter Visit Diagnoses Not on filedocumented in this encounter Care Teams Data Recovery Planner Relationship Specialty Start Date End Date Cain Mendoza MD [facility] [place] [phone] PCP - General Family Practice 12/17/22 documented as of this encounter
--- OUTSIDE RECORDS SUMMARY | 2024-07-11 09:17 | XMS_ITS | Encounter Summary ---
Author Organization [facility] Address [address] [place] [address] Care Team Providers Care Tool Design Draftsperson Name Role Phone Cain Mendoza MD Primary Care Provider [phone] Encounter Details Date Type Department Care Team (Late st Contact Info) Description 04/07/2001 Outpatient Historical [facility] [address] [facility] [place] [address] Social History Tobacco Use Types Packs/Day Years Used Date Smoking Tobacco: Never Assessed Sex and Gender Information Value Date Recorded Sex Assigned at Not on file Legal Sex Male 4:37 AM CENTER MANAGER Gender Identity Not on file Sexual Orientation Not on file documented as of this encounter Plan of Treatment Upcoming Encounters Date Type Department Care Team (Late st Contact Info) Description 08/24/2024 8:30 AM CDT Office Visit [facility] Oncology and Hematology - [place] [address] [facility] [address] [place] [address] Lewis Stanley MD [address] [facility] [address] [place] [address] documented as of this encounter Visit Diagnoses Not on filedocumented in this encounter Care Teams Tool Design Draftsperson Relationship Specialty Start Date End Date Cain Mendoza MD [address] [place] [phone] PCP - General Family Practice 12/17/22 documented as of this encounter
--- OUTSIDE RECORDS SUMMARY | 2024-07-11 09:17 | XMS_ITS | Encounter Summary ---
Author Organization [facility] Address 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 Gender Identity Not on file Sexual Orientation Not on file documented as of this encounter Plan of Treatment Upcoming Encounters Date Type Department Care Team (Late st Contact Info) Description 08/24/2024 8:30 AM CDT Office Visit [facility] Oncology and Hematology - [place] [address] [facility] [address] [place] [address] Lewis Stanley MD [address] [facility] [address] [place] [address] documented as of this encounter Visit Diagnoses Diagnosis Pain in limb- Primary documented in this encounter Care Teams Care Team Assistant Relationship Specialty Start Date End Date Cain Mendoza MD [facility] [place] [address] PCP - General Family Practice 12/17/22 documented as of this encounter
--- OUTSIDE RECORDS SUMMARY | 2024-07-11 09:17 | XMS_ITS | Encounter Summary ---
Author Organization [facility] Address [address] [place] [address] Care Team Providers Care Precision Agriculture Specialist Name Role Phone Cain Mendoza MD Primary Care Provider [phone] Reason for Visit * Reason Comments Medication Refill Encounter Details Date Type Department Care Team (Late Contact Info) Description 12/01/[address] [facility] [address] [facility] [address] [place] [address] Madeline Talley MD [address] [place] [address] Social History Tobacco Use Types Packs/Day Years Used Date Smoking Tobacco: Never Assessed Sex and Gender Information Value Date Recorded Sex Assigned at Not on file Legal Sex Male 4:37 AM NUTRITIONAL SERVICES DIRECTOR Gender Identity Not on file Sexual Orientation [...] and Hematology - [place] [address] [facility] [address] [place] [address] Lewis Stanley MD [address] [facility] [address] [place] [address] documented as of this encounter Visit Diagnoses Not on filedocumented in this encounter Care Teams Precision Agriculture Specialist Relationship Specialty Start Date End Date Cain Mendoza MD [address] [place] [address] PCP - General Family Practice 12/17/22 documented as of this encounter
== END 2024-07-11 08:46 | disposition home or self-care (01) ==
LOC: ANHLAB 08:46
PROVIDERS: PCP Nurse Practitioner Family; Visit Provider Physician Assistant
DX: J18.9 Pneumonia, unspecified organism (principal)
CPT/HCPCS: 87015; 87070; 87102; 87116; 87205; 87206

== ENCOUNTER 2024-07-19 13:58 | Outpatient (CLI) | payer OTHER, SELFPAY ==
--- NOTE | ~2024-07-19 | CT_ITS ---
CT Scan of the Chest without Contrast: Clinical Indication: Pneumonia Technique: Contiguous sections were acquired throughout the chest without intravenous contrast. Dose reduction technique was used on this scan by utilizing automated exposure control and iterative recon struction technique. The dose-length product (DLP) was 863.87 mGy-cm. COMPARISON: 03/24/2024 Findings: There is no evidence of any significant mediastinal, hilar or axillary lymphadenopathy. Extensive cor onary calcification present. There is no evidence of pleural or pericardial effusion. Stable 11 mm apical pulmonary nodule. Right lower lobe pneumonia is resolved since prior exam. There are new tree-in-bud opacities in the left lower lobe, compatible with infectious process. Images through the upper abdomen reveal no abnormalities. Impression: Interval resolution of right lower lobe pneumonia since prior exam. New tree-in-bud opacities in the left lower lobe, compatible with infectious process. Stable 11 mm apical pulmonary nodule. Reviewed, dictated and finalized at [facility]. Impression: Interval resolution of right lower lobe pneumonia since prior exam. New tree-in-bud opacities in the left lower lobe, compatible with infectious pr ocess. Stable 11 mm apical pulmonary nodule.
--- OUTSIDE RECORDS SUMMARY | 2024-07-19 14:20 | XMS_ITS | Clinical Summary ---
Author Organization [facility] [address] [facility] tt Address [address] [place] [address] Care Team Providers Care Information Systems Audit Manager Name Role Phone Cain Mendoza MD Primary Care Provider [phone] Allergies Active Allergy Reactions Criticality Noted Date [...] diabetic peripheral angiopathy with gangrene, unspecified whether assisted insulin use (HCC) One Touch Ultra Test Strips Check blood sugar twice daily Dx: E11.52 100 strip 11 5 Active blood-glucose meter miscIndications: Type 2 diabetes mellitus with diabetic peripheral angiopathy with gangrene, unspecified whether assisted insulin use (HCC) One touch Ultra Meter [...] 02/10/2023 Assessment & Plan (05/14/2024 10:05 AM JUNIOR FINANCIAL ANALYST): Chronic problem. Elevated upon arrival today. Currently taking Lisinopril 40mg, metoprolol XL 100mg daily, triamterene-HCTZ 37.5-25mg. Assessment & Plan (09/14/2023 10:10 AM CDT): Chronic problem, improved on recheck. Continue lisinopril, metoprolol, Maxzide, furosemide, diltiazem. Assessment & Plan (06/02/2023 12:31 PM JUNIOR FINANCIAL ANALYST): Chronic, well-controlled. Continue lisinopril Assessment & Plan (02/10/2023 10:37 AM JUNIOR FINANCIAL ANALYST): Chronic problem. Elevated upon arrival today. Currently taking Lisinopril 40mg, metoprolol XL 100mg daily, triamterene-HCTZ 37.5-25mg. Class 2 severe obesity due t o excess calories with serious comorbidity and body mass index (BMI) of 35.0 to 35.9 in adult 02/10/2023 Assessment & Plan (02/10/2023 3:18 PM JUNIOR FINANCIAL ANALYST): Actively working on weight loss. Difficulty w/exercise d/t chronic back pain. Discussed healthy diet and importance of regular physical activity (20- 30min/day, 150min/wk). Hyperlipidemia associated with type 2 diabetes cal epstein 10/28/2022 Assessment & Plan (05/14/2024 10:04 AM JUNIOR FINANCIAL ANALYST): Chronic problem. Near goal on current Atorvastatin 40mg & fenofibrate 135mg. Last lipid panel: 01/10/24 LDL=89, WZ=856. Assessment & Plan (01/10/2024 1:15 PM CDT): Chronic, stable. Update lipid profile. Continue statin therapy with atorvastatin 40 mg daily Assessment & Plan (09/14/2023 10:10 AM CDT): Chronic problem. On statin therapy, no changes. Assessment & Plan (06/02/2023 12:31 PM JUNIOR FINANCIAL ANALYST): Chronic, stable. Continue combination therapy of atorvastatin 40 mg daily with fenofibrate Diet and exercise advised Assessment & Plan (02/10/2023 10:38 AM JUNIOR FINANCIAL ANALYST): Chronic problem. Near goal on current Atorvastatin 40mg & fenofibrate 135mg. Last lipid panel: 10/28/22 LDL=84, UV=817. Assessment & Plan (10/28/2022 3:49 PM CDT): LDL goal under 80 Update lipid profile Continue atorvastatin 40 mg daily Persistent proteinuria 10/02/2018 Chronic mastoiditis, right ear 01/25/2018 Conductive hearing loss of l eft ear with unrestricted hearing of right ear 10/06/2017 Chronic allergic rhinitis due to pollen 10/07/19 18 Morbid (severe) obesity due to excess calories 1 05/11/2016 Mixed hearing loss, bilateral 03/10/2017 parts counterman current use of insulin 03/10/2017 Body mass index (BMI) 45.0-49.9, adult 7 Chronic ethmoidal sinusitis 04/23/2016 Type 2 diabetes mellitus 08/18/2013 Overview (07/08/2016): DMII WO CMP NT ST UNCNTR Assessment & Plan (05/14/2024 10:27 AM JUNIOR FINANCIAL ANALYST): Chronic problem. A1c at goal/stable today at [...] Trulicity. Assessment & Plan (06/02/2023 12:30 PM JUNIOR FINANCIAL ANALYST): Chronic, well-controlled with risk of hypoglycemia Stop Toujeo Continue Jardiance 25 mg daily Continue Trulicity Patient to call if blood glucose persistently increased to over 150 Assessment & Plan (02/10/2023 11:13 AM JUNIOR FINANCIAL ANALYST): Chronic problem. A1c at goal/stable today at 5.9%. Current medications: Jardiance 25mg daily Metformin 1000mg daily Trulicity 3mg weekly Toujeo 15 units daily Regular insulin 10 units for blood sugar over 150 (rarely uses) UTD on labs. DM eye exam completed at [facility]. Letter sent to get copy of [...] Type Department Care Team Description 06/06/2024 Telephone [facility] Diabetes and Endocrinology [address] [place] [address] [phone] Kaitlynn Vivas NP Request for Toujeo 05/28/2024 Telephone [facility] Diabetes and Endocrinology [address] [place] [address] [phone] Kaitlynn Vivas, BLOOD BANK BUSINESS MANAGER Med Management (Trulicity Pt Assistance) 05/22/2024 Orders Only [facility] Diabetes and Endocrinology [address] [place] [address] [phone] Provider, MD Oscar 05/14/2024 10:00 AM JUNIOR FINANCIAL ANALYST Office Visit [facility] Diabetes and Endocrinology [address] [place] [address] [phone] Kaitlynn Vivas NP Type 2 diabetes mellitus with hyperglycemia, with long-term current use of insulin (HCC) (Primary Dx); Hypertension associated with type 2 diabetes mellitus (HCC); Hyperlipidemia associated with type 2 diabetes mellitus (HCC) 04/25/2024 Telephone [facility] Diabetes and Endocrinology [address] [place] [phone] Kaitlynn Vivas NP PCP Callback Request - [...] on file Legal Sex Male 12:39 PM JUNIOR FINANCIAL ANALYST Gender Identity Not on file Sexual Orientation Straight 01/10/2024 11 :32 AM CDT Obstetrics History Last Filed Vital Signs Vital Sign Reading Time Taken Comments Blood Pressure 136/72 05/14/2024 9:52 AM JUNIOR FINANCIAL ANALYST Pulse 77 05/14/2024 9:52 AM JUNIOR FINANCIAL ANALYST Temperature 36.2 C (97.1 F) 03/18/2020 9:01 AM JUNIOR FINANCIAL ANALYST Respiratory Rate 20 01/10/2024 11:33 AM CDT Oxygen Saturation 96% 03/18/2020 9:01 AM JUNIOR FINANCIAL ANALYST Inhaled Oxygen Concentration - - Weight 120.2 kg (265 lb) 05/14/2024 9:52 AM JUNIOR FINANCIAL ANALYST Height 172.7 cm (5' 7.99 ) 05/14/2024 9:52 AM CS T Body Mass Index 40.3 05/14/2024 9:52 AM JUNIOR FINANCIAL ANALYST Plan of Treatment Health Maintenance Due Date [...] Comments POCT GLUCOSE Routine 05/14/2024 9:55 AM JUNIOR FINANCIAL ANALYST Type 2 diabetes mellitus with hyperglycemia, with long-term current use of insulin (HCC) POCT HEMOGLOBIN A1C Routine 05/14/2024 9 :55 AM JUNIOR FINANCIAL ANALYST Type 2 diabetes mellitus with hyperglycemia, with long-term current use of insulin (HCC) DIABETES EYE EXAM Routine 04/16/2024 9:12 AM JUNIOR FINANCIAL ANALYST EGFR Routine 01/10/2024 12:21 PM CDT Type 2 diabetes mellitus with diabetic peripheral angiopathy with gangrene, unspecified whether assisted insulin use (HCC) LIPID PANEL Routine 01/10/2024 12:21 PM CDT Type 2 diabetes mellitus with diabetic peripheral angiopathy with gangrene, unspecified whether assisted insulin use (HCC) ALBUMIN CREATININE RATIO, URINE Routine 01/10/2024 12:21 PM CDT Type 2 diabetes mellitus with diabetic peripheral angiopathy with gangrene, unspecified whether buttermilk drier operator insulin use (HCC) from Last 3 Months or Most Recently Relevant to Health Maintenance Results * (ABNORMAL) POCT hemoglobin A1c (05/14/2024 9:55 AM JUNIOR FINANCIAL ANALYST) Hemoglobin A1C, POC 6.5 4.0 - 5.6 % Blood 05/14/2024 9:55 AM JUNIOR FINANCIAL ANALYST us Kaitlynn Vivas NP POINT OF CARE TEST ORDERA BLES Final Result * (ABNORMAL) POCT glucose (05/14/2024 9:55 AM JUNIOR FINANCIAL ANALYST) Glucose Blood, POC 145 mg/dL Blood 05/14/2024 9:55 AM JUNIOR FINANCIAL ANALYST us Kaitlynn Vivas NP POINT OF CARE TEST ORDERA BLES Final Result * DIABETES EYE EXAM (04/16/2024 9:12 AM JUNIOR FINANCIAL ANALYST) us Historical Provider HEALTH MAINTENANCE Final Result [...] ORDERABLES Final Resul t Performing Organization Address City/[facility] Co de Phone Number [place] [address] [place] [address] * (ABNORMAL) Albumin Creatinine Ratio, Urine (01/10/2024 [...] ORDERABLES Final Resul t Performing Organization Address City/State/[facility] Co de Phone Number [place] [address] Department [place] [address] * (ABNORMAL) Lipid panel (01/10/2024 12:21 PM [...] BLOOD ORDERABLES Final Resul t [place] [address] Department [place] [address] from Last 3 Months or Most Recently Relevant to Health Maintenance Insurance [facility] Care Teams Information Systems Audit Manager Relationship Specialty Start Date End Date Cain Mendoza MD [address] [facility] [address] [place], [place] [phone] PCP - General 02/03/11
--- OUTSIDE RECORDS SUMMARY | 2024-07-19 14:20 | XMS_ITS | Encounter Summary ---
Author Organization [facility] Address [address] [place] [address] Care Team Providers Care Vacuum Extractor Operator Name Role Phone Cain Mendoza MD Primary Care Provider [phone] Encounter Details Date Type Department Care Team (Late st Contact Info) Description 04/07/2001 Outpatient Historical [facility] OP [facility] [place] [address] [facility] [place] [address] Social History Tobacco Use Types Packs/Day Years Used Date Smoking Tobacco: Never Assessed Sex and Gender Information Value Date Recorded Sex Assigned at Not on file Legal Sex Male 4:37 AM LEGAL SERVICES MANAGER Gender Identity Not on file Sexual Orientation Not on file documented as of this encounter Plan of Treatment Upcoming Encounters Date Type Department Care Team (Late st Contact Info) Description 08/24/2024 8:30 AM CDT Office Visit [facility] Oncology and Hematology - [place] [address] [facility] [address] [place] [address] Lewis Stanley MD [address] [facility] [address] [place] [address] documented as of this encounter Visit Diagnoses Not on filedocumented in this encounter Care Teams Vacuum Extractor Operator Relationship Specialty Start Date End Date Cain Mendoza MD [address] [place] [phone] PCP - General Family Practice 12/17/22 documented as of this encounter
--- OUTSIDE RECORDS SUMMARY | 2024-07-19 14:20 | XMS_ITS | Clinical Summary ---
Author Organization [facility] Address [address] [place] [address] Phone Care Team Providers Care Inspector Insulation Name Role Phone Jabier Acosta Primary Care Provider [phone] Allergies Active Allergy Reactions Criticality Noted Date [...] file Insurance MEDICARE C [place] Care Teams Inspector Insulation Relationship Specialty Start Date End Date Jabier Acosta DO [address] [facility] [address] [place] [address] PCP - General Internal Medicine 10/05/21
--- OUTSIDE RECORDS SUMMARY | 2024-07-19 14:20 | XMS_ITS | Encounter Summary ---
Author Organization [facility] Care Team Providers Care Skating Rink Ice Maker Name Role Phone Cain Mendoza MD Primary Care Provider [phone] Encounter Details Date Type Department Care Team (Latest Contact Info) Description 10/06/2017 Orders Only [facility] ProviderOscar MD [address] [place] [address] Social History Tobacco Use Types Packs/Day Years Used Date Smoking Tobacco: Never Assessed Alcohol Use Standard Drinks/Week Comments No 0 (1 standard drink = 0.6 oz pur e alcohol) Sex and Gender Information Value Date Recorded Sex Assigned at Not on file Legal Sex Male 12:39 PM DIRECTOR OF ANESTHESIA SERVICES Gender Identity Not on file Sexual Orientation [...] on filedocumented in this encounter Care Teams Skating Rink Ice Maker Relationship Specialty Start Date End Date Cain Mendoza MD [address] [address] PCP - General 02/03/11 documented as of this encounter
--- OUTSIDE RECORDS SUMMARY | 2024-07-19 14:20 | XMS_ITS | Continuity of Care Document ---
Author Organization [facility] Address [address] [place] [address] Phone Care Team Providers Care Panel Monitor Name Role Phone Yuriy Gonzales DO Unavailable Unavailable Advance Directives Directive Yes / No Effective Date File Name No Information Encounters Encounter Description Practice Location Reason(s) For Visit Diagnoses Date Provider Providers Copied on Encounter [facility], [address], [place], [place], [id number], [place] tel:[phone] [facility] No Information Christian Plummer. [address] [facility], [place], [address], [place]. tel:[phone] Family History Family Member Type Diagnosis Age [...]
--- OUTSIDE RECORDS SUMMARY | 2024-07-19 14:20 | XMS_ITS | Encounter Summary ---
Author Organization [facility] Address [address] [place] [address] Care Team Providers Care Pulper Tender Name Role Phone Cain Mendoza MD Primary Care Provider [phone] Encounter Details Date Type Department Care Team (Late st Contact Info) Description 02/21/2001 Outpatient Historical HIS BEN HUSAIN BLDG Social History Tobacco Use Types Packs/Day Years Used Date Smoking Tobacco: Never Assessed Sex and Gender Information Value Date Recorded Sex Assigned at Not on file Legal Sex Male 4:37 AM WAIVER ANALYST Gender Identity Not on file Sexual Orientation Not on file documented as of this encounter Plan of Treatment Upcoming Encounters Date Type Department Care Team (Late st Contact Info) Description 08/24/2024 8:30 AM CDT Office Visit [facility] Oncology and Hematology - [place] [address] [facility] [address] [place] [address] Lewis Stanley MD [address] [facility] [address] [place] [address] documented as of this encounter Visit Diagnoses Not on filedocumented in this encounter Care Teams Pulper Tender Relationship Specialty Start Date End Date Cain Mendoza MD [facility] [place] [phone] PCP - General Family Practice 12/17/22 documented as of this encounter
--- OUTSIDE RECORDS SUMMARY | 2024-07-19 14:20 | XMS_ITS | Encounter Summary ---
Author Organization [facility] Address [address] [place] [address] Care Team Providers Care Prepress Operator Name Role Phone Cain Mendoza MD Primary Care Provider [phone] Encounter Details Date Type Department Care Team (Latest Contact Info) Description 03/06/2001 Outpatient Historical [facility] [place] [address] [facility] Occupational [place] [address] PAIN IN LIMB (Primary Dx) Social History Tobacco Use Types Packs/Day Years Used Date Smoking Tobacco: Never Assessed Sex and Gender Information Value Date Recorded Sex Assigned at Not on file Legal Sex Male 4:37 AM CRA Gender Identity Not on file Sexual Orientation Not on file documented as of this encounter Plan of Treatment Upcoming Encounters Date Type Department Care Team (Late st Contact Info) Description 08/24/2024 8:30 AM CDT Office Visit [facility] Oncology and Hematology - [place] [address] [facility] [address] [place] [address] Lewis Stanley MD [address] [facility] [address] [place] [address] documented as of this encounter Visit Diagnoses Diagnosis Pain in limb- Primary documented in this encounter Care Teams Prepress Operator Relationship Specialty Start Date End Date Cain Mendoza MD [facility] [place] [address] PCP - General Family Practice 12/17/22 documented as of this encounter
--- OUTSIDE RECORDS SUMMARY | 2024-07-19 14:20 | XMS_ITS | Clinical Summary ---
Author Organization [facility] Address [address] [place] [address] Care Team Providers Care Cash Teller Name Role Phone Julio Puentes MD Primary Care Provider [phone] Source Comments [facility] [employer],non-owned Affiliates and Associated Physician Practices is amultiple site organization consisting of ambulatory clinics and hospital sitesin [place], [place], [place] and [place]. This disclosure is being madepursuant to the Care Everywhere program and may not contain all information available regarding this patient. Last updated 17.[facility] [employer] Social History Tobacco Use Types Packs/Day Years Used Date Smoking Tobacco: Never Assessed Sex and Gender Information Value Date Recorded Sex Assigned at Not on file Legal Sex Male 11:43 AM DRAFTER PLUMBING Gender Identity Not on file Sexual Orientation [...] VACCINE (1 of 2) 08/18/2013 COVID-19 VACCINE (1 - 2023-2 5 season) 2023 DEPRESSION SCREENING 04/04/2024 INFLUENZA VACCINE (Season Ended) 2024 Respiratory Syncytial [...] patient's age to complete this topic Insurance [employer] [facility] MEDICARE SELF PAY NO INSURANCE Member Subscriber Plan / Payer (Ef fective for All Dates) Name:Cari Lam Jr. Member ID:Not on file Relation to Subscriber:Not on file Name:CAIR LAM Subscriber ID:Not on file (Home) Address: [address] [place] [address] Payer ID:Not on file Group ID:Not on file Type:Self Pay Address: [place], [place] Care Teams Cash Teller Relationship Specialty Start Date End Date Julio Puentes MD [address] [place] [address] PCP - General Internal Medicine 02/23/19
--- OUTSIDE RECORDS SUMMARY | 2024-07-19 14:20 | XMS_ITS | Clinical Summary ---
Author Organization [facility] Address [address] [place] [address] Phone Care Team Providers Care Computer Operations Manager Name Role Phone Julio Puentes MD Primary Care Provider [phone] Allergies Active Allergy Reactions Criticality Noted Date [...] 3 TIMES DAILY 0 Active UltiCare Pen [place] 29G X 12.7MM misc USE 1 PEN [...] 2024 Insurance [employer] HMO Care Teams Computer Operations Manager Relationship Specialty Start Date End Date Julio Puentes MD [address] [place] [address] PCP - General Family Medicine 10/02/18
--- OUTSIDE RECORDS SUMMARY | 2024-07-19 14:20 | XMS_ITS | Encounter Summary ---
Author Organization [facility] Address [address] [place] [address] Care Team Providers Care Pie Filling Mixer Name Role Phone Cain Mendoza MD Primary Care Provider [phone] Encounter Details Date Type Department Care Team (Late st Contact Info) Description 02/21/2001 Outpatient Historical [place] [address] [facility] [place] [address] Social History Tobacco Use Types Packs/Day Years Used Date Smoking Tobacco: Never Assessed Sex and Gender Information Value Date Recorded Sex Assigned at Not on file Legal Sex Male 4:37 AM WASHER CARCASS Gender Identity Not on file Sexual Orientation Not on file documented as of this encounter Plan of Treatment Upcoming Encounters Date Type Department Care Team (Late st Contact Info) Description 08/24/2024 8:30 AM CDT Office Visit [facility] Oncology and Hematology - [place] [address] [facility] [address] [place] [address] Lewis Stanley MD [address] [facility] [address] [place] [address] documented as of this encounter Visit Diagnoses Not on filedocumented in this encounter Care Teams Pie Filling Mixer Relationship Specialty Start Date End Date Cain Mendoza MD [address] [place] [phone] PCP - General Family Practice 12/17/22 documented as of this encounter
--- OUTSIDE RECORDS SUMMARY | 2024-07-19 14:20 | XMS_ITS | Referral Summary ---
Author Organization [facility] [address] Address [address] [place] [address] Care Team Providers Care Nurse Examiner Name Role Phone Cain Mendoza MD Primary Care Provider [phone] Encounters Date Type Department Care Team Description 06/06/2024 Telephone [facility] Diabetes and Endocrinology [address] [place] [address] Kaitlynn Vivas NP Request for Toujeo 05/28/2024 Telephone [facility] Diabetes [facility] Endocrinology [address] [place] [address] Kaitlynn Vivas NP Med Management ([facility]) 05/22/2024 Orders Only [facility] [address] [place] [address] ProviderOscar MD 05/14/2024 10:00 AM ASSISTANT DRAFTER Office Visit [facility] Diabetes [facility] Endocrinology [address] [place] [address] Kaitlynn Vivas NP Type 2 diabetes mellitus with hyperglycemia, with long-term current use of insulin (HCC) (Primary Dx); Hypertension associated with type 2 diabetes mellitus (HCC); Hyperlipidemia associated with type 2 diabetes mellitus (HCC) 04/25/2024 Telephone [facility] Diabetes [facility] Endocr[facility]ology [address] [place] [address] Kaitlynn Vivas NP PCP Callback Request [...] diabetic peripheral angiopathy with gangrene, unspecified whether long term care pharmacist insulin use (HCC) One Touch Ultra Test Strips Check blood sugar twice daily Dx: E11.52 100 strip 11 5 Active blood-glucose meter miscIndications: Type 2 diabetes mellitus with diabetic peripheral angiopathy with gangrene, unspecified whether long term care pharmacist insulin use (HCC) One touch Ultra Meter [...] 02/10/2023 Assessment & Plan (05/14/2024 10:05 AM ASSISTANT DRAFTER): Chronic problem. Elevated upon arrival today. Currently taking Lisinopril 40mg, metoprolol XL 100mg daily, triamterene-HCTZ 37.5-25mg. Assessment & Plan (09/14/2023 10:10 AM CDT): Chronic problem, improved on recheck. Continue lisinopril, metoprolol, Maxzide, furosemide, diltiazem. Assessment & Plan (06/02/2023 12:31 PM ASSISTANT DRAFTER): Chronic, well-controlled. Continue lisinopril Assessment & Plan (02/10/2023 10:37 AM ASSISTANT DRAFTER): Chronic problem. Elevated upon arrival today. Currently taking Lisinopril 40mg, metoprolol XL 100mg daily, triamterene-HCTZ 37.5-25mg. Class 2 severe obesity due t o excess calories with serious comorbidity and body mass index (BMI) of 35.0 to 35.9 in adult 02/10/2023 Assessment & Plan (02/10/2023 3:18 PM ASSISTANT DRAFTER): Actively working on weight loss. Difficulty w/exercise d/t chronic back pain. Discussed healthy diet and importance of regular physical activity (20- 30min/day, 150min/wk). Hyperlipidemia associated with type 2 diabetes cal merrillmitra 10/28/2022 Assessment & Plan (05/14/2024 10:04 AM ASSISTANT DRAFTER): Chronic problem. Near goal on current Atorvastatin 40mg & fenofibrate 135mg. Last lipid panel: 01/10/24 LDL=89, YK=761. Assessment & Plan (01/10/2024 1:15 PM CDT): Chronic, stable. Update lipid profile. Continue statin therapy with atorvastatin 40 mg daily Assessment & Plan (09/14/2023 10:10 AM CDT): Chronic problem. On statin therapy, no changes. Assessment & Plan (06/02/2023 12:31 PM ASSISTANT DRAFTER): Chronic, stable. Continue combination therapy of atorvastatin 40 mg daily with fenofibrate Diet and exercise advised Assessment & Plan (02/10/2023 10:38 AM ASSISTANT DRAFTER): Chronic problem. Near goal on current Atorvastatin 40mg & fenofibrate 135mg. Last lipid panel: 10/28/22 LDL=84, NF=086. Assessment & Plan (10/28/2022 3:49 PM CDT): LDL goal under 80 Update lipid profile Continue atorvastatin 40 mg daily Persistent proteinuria 10/02/2018 Chronic mastoiditis, right ear 01/25/2018 Conductive hearing loss of l eft ear with unrestricted hearing of right ear 10/06/2017 Chronic allergic rhinitis due to pollen 10/07/19 18 Morbid (severe) obesity due to excess calories 1 05/11/2016 Mixed hearing loss, bilateral 03/10/2017 detention current use of insulin 03/10/2017 Body mass index (BMI) 45.0-49.9, adult 7 Chronic ethmoidal sinusitis 04/23/2016 Type 2 diabetes mellitus 08/18/2013 Overview (07/08/2016): DMII WO CMP NT ST UNCNTR Assessment & Plan (05/14/2024 10:27 AM ASSISTANT DRAFTER): Chronic problem. A1c at goal/stable today at [...] Trulicity. Assessment & Plan (06/02/2023 12:30 PM ASSISTANT DRAFTER): Chronic, well-controlled with risk of hypoglycemia Stop Toujeo Continue Jardiance 25 mg daily Continue Trulicity Patient to call if blood glucose persistently increased to over 150 Assessment & Plan (02/10/2023 11:13 AM ASSISTANT DRAFTER): Chronic problem. A1c at goal/stable today at 5.9%. Current medications: Jardiance 25mg daily Metformin 1000mg daily Trulicity 3mg weekly Toujeo 15 units daily Regular insulin 10 units for blood sugar over 150 (rarely uses) UTD on labs. DM eye exam completed at [facility]. Letter sent to get copy of [...] on file Legal Sex Male 12:39 PM ASSISTANT DRAFTER Gender Identity Not on file Sexual Orientation Straight 01/10/2024 11 :32 AM CDT Last Filed Vital Signs Vital Sign Reading Time Taken Comments Blood Pressure 136/72 05/14/2024 9:52 AM ASSISTANT DRAFTER Pulse 77 05/14/2024 9:52 AM ASSISTANT DRAFTER Temperature 36.2 C (97.1 F) 03/18/2020 9:01 AM ASSISTANT DRAFTER Respiratory Rate 20 01/10/2024 11:33 AM CDT Oxygen Saturation 96% 03/18/2020 9:01 AM ASSISTANT DRAFTER Inhaled Oxygen Concentration - - Weight 120.2 kg (265 lb) 05/14/2024 9:52 AM ASSISTANT DRAFTER Height 172.7 cm (5' 7.99 ) 05/14/2024 9:52 AM CS T Body Mass Index 40.3 05/14/2024 9:52 AM ASSISTANT DRAFTER Plan of Treatment Not on file Procedures Procedure Name Priority Date/Time Associated Diagnosis Comments POCT GLUCOSE Routine 05/14/2024 9:55 AM ASSISTANT DRAFTER Type 2 diabetes mellitus with hyperglycemia, with long-term current use of insulin (HCC) POCT HEMOGLOBIN A1C Routine 05/14/2024 9 :55 AM ASSISTANT DRAFTER Type 2 diabetes mellitus with hyperglycemia, with long-term current use of insulin (HCC) DIABETES EYE EXAM Routine 04/16/2024 9:12 AM ASSISTANT DRAFTER EGFR Routine 01/10/2024 12:21 PM CDT Type 2 diabetes mellitus with diabetic peripheral angiopathy with gangrene, unspecified whether chcf insulin use (HCC) LIPID PANEL Routine 01/10/2024 12:21 PM CDT Type 2 diabetes mellitus with diabetic peripheral angiopathy with gangrene, unspecified whether long term care pharmacist insulin use (HCC) ALBUMIN CREATININE RATIO, URINE Routine 01/10/2024 12:21 PM CDT Type 2 diabetes mellitus with diabetic peripheral angiopathy with gangrene, unspecified whether chcf insulin use (HCC) from Last 3 Months or Most Recently Relevant to Health Maintenance Results * (ABNORMAL) POCT hemoglobin A1c (05/14/2024 9:55 AM ASSISTANT DRAFTER) Hemoglobin A1C, POC 6.5 4.0 - 5.6 % Blood 05/14/2024 9:55 AM ASSISTANT DRAFTER us Kaitlynnmarisela Vivas WAFER FABRICATION TECHNICIAN POINT OF CARE TEST ORDERA BLES Final Result * (ABNORMAL) POCT glucose (05/14/2024 9:55 AM ASSISTANT DRAFTER) Glucose Blood, POC 145 mg/dL Blood 05/14/2024 9:55 AM ASSISTANT DRAFTER us Kaitlynnmarisela Vivas WAFER FABRICATION TECHNICIAN POINT OF CARE TEST ORDERA BLES Final Result * DIABETES EYE EXAM (04/16/2024 9:12 AM ASSISTANT DRAFTER) Historical Provider HEALTH MAINTENANCE Final Result * [...] MD LAB BLOOD ORDERABLES Final Resul t [facility] [address] [place] [address] * (ABNORMAL) Albumin Creatinine Ratio, [...] URINE ORDERABLES Final Resul t [facility] [address] [place] [address] * (ABNORMAL) Lipid panel (01/10/2024 12:21 PM [...] BLOOD ORDERABLES Final Resul t [facility] [place] [address] [place] [address] from Last 3 Months or Most Recently Relevant to Health Maintenance Insurance [facility] Care Teams Nurse Examiner Relationship Specialty Start Date End Date Cain Mendoza MD [address] [address] PCP - General 02/03/11
--- OUTSIDE RECORDS SUMMARY | 2024-07-19 14:20 | XMS_ITS | Encounter Summary ---
Author Organization [facility] Address 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 Gender Identity Not on file Sexual Orientation Not on file documented as of this encounter Plan of Treatment Upcoming Encounters Date Type Department Care Team (Late st Contact Info) Description 08/24/2024 8:30 AM CDT Office Visit [facility] Oncology and Hematology - [place] [address] [facility] [address] [place] [address] Lewis Stanley MD [address] [facility] [address] [place] [address] documented as of this encounter Visit Diagnoses Not on filedocumented in this encounter Care Teams Glue Bone Drier Relationship Specialty Start Date End Date Cain Mendoza MD [facility] [place] [phone] PCP - General Family Practice 12/17/22 documented as of this encounter
--- OUTSIDE RECORDS SUMMARY | 2024-07-19 14:20 | XMS_ITS | Encounter Summary ---
Author Organization [facility] Address [address] [place] [address] Care Team Providers Care Team Supervisor Name Role Phone Cain Mendoza MD Primary Care Provider [phone] Reason for Visit * Reason Comments Medication Refill Encounter Details Date Type Department Care Team (Late Contact Info) Description 12/01/2012 Refill [facility] [place] [address] [address] [place] [address] Madeline Talley MD [address] [place] [address] Social History Tobacco Use Types Packs/Day Years Used Date Smoking Tobacco: Never Assessed Sex and Gender Information Value Date Recorded Sex Assigned at Not on file 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
--- OUTSIDE RECORDS SUMMARY | 2024-07-19 14:20 | XMS_ITS | Clinical Summary ---
Author Organization [facility] Address [address] [place] [address] Care Team Providers Care Duct Layer Supervisor Name Role Phone Cain Mendoza MD Primary Care Provider [phone] Allergies Active Allergy Reactions Criticality Noted Date [...] 9 Active fluticasone propionate (FLONASE) 50 mcg/spray Smyer, Suspension nasal inhaler Administer 1 Smyer in each nostril. 9 Active ibuprofen (MOTRIN) [...] Take 100 mg by mouth. 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 [address] [place] [address] Lewis Stanley MD [address] [facility] [address] [place] [address] Health Maintenance Due Date Last [...] patient's age to complete this topic Insurance [facility] Member Subscriber Plan / Payer ( fective 2020-Present) Name:Sean Cueto Jr. Relation to Subscriber:Self Name:Sean Cueto Jr. Payer ID:[id number] (NA) Type:HMO Address: [address] [place] [id number] [facility] Care Teams Duct Layer Supervisor Relationship Specialty Start Date End Date Cain Mendoza MD [facility] [place] [phone] PCP - General Family Practice 12/17/22
== END 2024-07-19 13:59 | disposition home or self-care (01) ==
PROVIDERS: PCP Family Medicine; Visit Provider Physician Assistant
DX: J18.9 Pneumonia, unspecified organism (principal); R91.1 Solitary pulmonary nodule
CPT/HCPCS: 71250

== ENCOUNTER 2024-08-02 09:22 | Outpatient (CLI) | payer OTHER, SELFPAY ==
--- NOTE | 2024-08-02 09:49 | ECHO_ITS ---
Patient Info Name: Sean Cueto Age: 58 years : 1965 Gender: Male Ht: 69 in Wt: 250 lbs BSA: 2.40 m2 HR: 78 bpm BP: 133 / 74 mmHg Technical Quality: Fair Exam Date: 08/02/2024 9:56 AM Exam Location: Echo Lab Patient Status: Outpatient Admit Date: 08/02/2024 Staff Ordering Physician: Jus Davenport DO Tensioning Machine Operator: Jacqueline Lebron RDCS Attending Provider: Jus Davenport DO Referring Physician: Issac BRYAN; Exam Type: CA echo dop color flow w con Study Info Indications I35.0 - Nonrheumatic aortic (valve) stenosis Complete two-dimensional, color flow and Doppler transthoracic echocardiogram is performed with contrast to opacify the left ventricle and to improve the deliniation of the left ventricle endocardial borders. Contrast/Agitated Saline Contrast/Ag. Saline: Definity Amount: 3.00 ml IV Access Condition: patent with no signs of infiltration New IV Access: Left Site Condition: IV removed Summary 1. Definity contrast administered improved wall motion interpretation. 2. Left ventricular chamber dimension is normal. 3. Left ventricular systolic function is normal, estimated at 60-65%. 4. There is mild concentric increased left ventricular wall thickness. 5. The left ventricular diastolic function is grade I diastolic dysfunction. 6. E/e' 10 is mildly elevated. 7. Left atrial chamber dimension is moderately enlarged. 8. There is severe aortic valve sclerosis. 9. There is severe aortic valve stenosis with a peak velocity of 298.99 cm/s, mean gradient of 26 mmHg, and aortic valve area of 0.95 cm2. 10. There is mild to moderate aortic valve regurgitation. 11. There is mild tricuspid valve regurgitation. Left Ventricle E/e' 10 is mildly elevated. Definity contrast administered improved wall motion interpretation. Left ventricular chamber dimension is normal. Left ventricular systolic function is normal, estimated at 60-65%. There is mild concentric increased left ventricular wall thickness. The left ventricular diastolic function is grade I diastolic dysfunction. Right Ventricle Right ventricular chamber dimension is normal. Right ventricular systolic function is normal. Left Atria Left atrial chamber dimension is moderately enlarged. Right Atria Right atrial chamber dimension is normal. Aortic Valve The aortic valve is not well visualized. There is severe aortic valve sclerosis. There is severe aortic valve stenosis with a peak velocity of 298.99 cm/s, mean gradient of 26 mmHg, and aortic valve area of 0.95 cm2. There is mild to moderate aortic valve regurgitation. Pulmonic Valve There is no pulmonic regurgitation. Mitral Valve There is no mitral valve stenosis. There is no mitral valve regurgitation. Tricuspid Valve RVSP is not measured. There is mild tricuspid valve regurgitation. Pericardium/Pleural There is no pericardial effusion. Inferior Vena Cava Normal inferior vena cava with >50% collapse upon inspiration consistent with normal right atrial pressure, 5 mmHg. Aorta The aortic root size at the sinus of Valsalva is normal. Left Ventricular Outflow Tract Name Value Normal LVOT 2D LVOT Diameter 2.12 cm LVOT Doppler LVOT Peak Gradient 3 mmHg LVOT Mean Gradient 2 mmHg LVOT VTI 18.56 cm LVOT VTI/AV VTI Ratio 0.27 LVOT Stroke Volume 65.63 ml LVOT CO 14.37 l/min LVOT CI 6.00 L/min/m2 Pulmonic Valve Name Value Normal PV Doppler PV Peak Gradient 4 mmHg Mitral Valve Name Value Normal MV Doppler MV Decel [place] 242.29 cm/s2 MV PHT 0 s MV Area (PHT) 3.65 cm2 4.00-5.00 MV Diastolic Function MV E Peak Velocity 50.33 cm/s MV A Peak Velocity 79.65 cm/s MV E/A 0.63 MV Decel Time 0 s MV Annular TDI MV E/e' (Septal) 10.77 <=8.00 MV E/e' (Lateral) 10.57 <=8.00 MV E/e' (Average) 10.67 Tricuspid Valve Name Value Normal Estimated PAP/RSVP RA Pressure 5 mmHg <=5 Aorta Name Value Normal Ascending Aorta Ao Root Diameter (MM) 2.91 cm Ao Root Diam Index (MM) 1.21 cm/m2 Aortic Valve Name Value Normal AV Doppler AV Peak Velocity 298.99 cm/s AV Peak Gradient 36 mmHg AV Mean Gradient 26 mmHg AV VTI 69.15 cm AV Area (Cont Eq VTI) 0.95 cm2 >=3.00 AV Area (Cont Eq Bret) 1.05 cm2 AV Regurgitation 2D LVOT Area 3.54 cm2 AV Regurgitation Doppler AR Decel Time 2 s AR Decel [place] 247.05 cm/s2 AR PHT 0 s Ventricles Name Value Normal LV Dimensions 2D/MM IVS Diastolic Thickness (2D) 1.41 cm 0.60-1.00 LVID Diastole (2D) 5.59 cm 4.20-5.80 LVIW Diastolic Thickness (2D) 1.34 cm 0.60-1.00 LVID Systole (2D) 3.93 cm 2.50-4.00 LVOT Diameter 2.12 cm LV Mass (2D Cubed) 337.91 g 88.00-224.00 LV Mass Index (2D Cubed) 0.01 g/cm2 0.00-0.01 Relative Wall Thickness (2D) 0.48 LV Fractional Shortening/Ejection Fraction 2D/MM LV Fractional Shortening (2D) 30 % 25-43 LV EF (2D Teicholz) 56 % 52-72 LV Diastolic Volume (4C MOD) 158.89 ml LV EF (4C MOD) 66 % LV Diastolic Volume (2C MOD) 93.52 ml LV EF (2C MOD) 53 % LV Diastolic Volume (BP MOD) 121.57 ml 62.00-150.00 LV Diastolic Volume Index (BP MOD) 0.05 l/m2 0.03-0.07 LV Systolic Volume (BP MOD) 48.86 ml 21.00-61.00 LV Systolic Volume Index (BP MOD) 0.02 l/m2 0.01-0.03 LV EF (BP MOD) 60 % 52-72 LV Diastolic Length (4C) 9.09 cm LV Systolic Length (4C) 7.81 cm LV Stroke Volume (4C MOD) 105.25 ml Atria Name Value Normal LA Dimensions LA Dimension (MM) 0.00 cm 3.00-4.10 LA Volume (4C A-L) 65.54 ml LA Volume (BP A-L) 67.83 ml RA Dimensions RA Area (4C) 19.54 cm2 <=18.00 Report Signatures
--- OUTSIDE RECORDS SUMMARY | 2024-08-02 09:50 | XMS_ITS | Clinical Summary ---
Author Organization [facility] [address] [facility] [place] Address [address] [place] [address] Care Team Providers Care Scallop Binder Name Role Phone Cain Mendoza MD Primary Care Provider [phone] Allergies Active Allergy Reactions Criticality Noted Date [...] diabetic peripheral angiopathy with gangrene, unspecified whether oil heaterman insulin use (HCC) One Touch Ultra Test Strips Check blood sugar twice daily Dx: E11.52 100 strip 11 5 Active blood-glucose meter miscIndications: Type 2 diabetes mellitus with diabetic peripheral angiopathy with gangrene, unspecified whether residential insulin use (HCC) One touch Ultra Meter [...] 02/10/2023 Assessment & Plan (05/14/2024 10:05 AM REWRITE EDITOR): Chronic problem. Elevated upon arrival today. Currently taking Lisinopril 40mg, metoprolol XL 100mg daily, triamterene-HCTZ 37.5-25mg. Assessment & Plan (09/14/2023 10:10 AM CDT): Chronic problem, improved on recheck. Continue lisinopril, metoprolol, Maxzide, furosemide, diltiazem. Assessment & Plan (06/02/2023 12:31 PM REWRITE EDITOR): Chronic, well-controlled. Continue lisinopril Assessment & Plan (02/10/2023 10:37 AM REWRITE EDITOR): Chronic problem. Elevated upon arrival today. Currently taking Lisinopril 40mg, metoprolol XL 100mg daily, triamterene-HCTZ 37.5-25mg. Class 2 severe obesity due t o excess calories with serious comorbidity and body mass index (BMI) of 35.0 to 35.9 in adult 02/10/2023 Assessment & Plan (02/10/2023 3:18 PM REWRITE EDITOR): Actively working on weight loss. Difficulty w/exercise d/t chronic back pain. Discussed healthy diet and importance of regular physical activity (20- 30min/day, 150min/wk). Hyperlipidemia associated with type 2 diabetes cal epstein 10/28/2022 Assessment & Plan (05/14/2024 10:04 AM REWRITE EDITOR): Chronic problem. Near goal on current Atorvastatin 40mg & fenofibrate 135mg. Last lipid panel: 01/10/24 LDL=89, BO=581. Assessment & Plan (01/10/2024 1:15 PM CDT): Chronic, stable. Update lipid profile. Continue statin therapy with atorvastatin 40 mg daily Assessment & Plan (09/14/2023 10:10 AM CDT): Chronic problem. On statin therapy, no changes. Assessment & Plan (06/02/2023 12:31 PM REWRITE EDITOR): Chronic, stable. Continue combination therapy of atorvastatin 40 mg daily with fenofibrate Diet and exercise advised Assessment & Plan (02/10/2023 10:38 AM REWRITE EDITOR): Chronic problem. Near goal on current Atorvastatin 40mg & fenofibrate 135mg. Last lipid panel: 10/28/22 LDL=84, LS=277. Assessment & Plan (10/28/2022 3:49 PM CDT): LDL goal under 80 Update lipid profile Continue atorvastatin 40 mg daily Persistent proteinuria 10/02/2018 Chronic mastoiditis, right ear 01/25/2018 Conductive hearing loss of l eft ear with unrestricted hearing of right ear 10/06/2017 Chronic allergic rhinitis due to pollen 10/07/19 18 Morbid (severe) obesity due to excess calories 1 05/11/2016 Mixed hearing loss, bilateral 03/10/2017 intermediate designer current use of insulin 03/10/2017 Body mass index (BMI) 45.0-49.9, adult 7 Chronic ethmoidal sinusitis 04/23/2016 Type 2 diabetes mellitus 08/18/2013 Overview (07/08/2016): DMII WO CMP NT ST UNCNTR Assessment & Plan (05/14/2024 10:27 AM REWRITE EDITOR): Chronic problem. A1c at goal/stable today at [...] Trulicity. Assessment & Plan (06/02/2023 12:30 PM REWRITE EDITOR): Chronic, well-controlled with risk of hypoglycemia Stop Toujeo Continue Jardiance 25 mg daily Continue Trulicity Patient to call if blood glucose persistently increased to over 150 Assessment & Plan (02/10/2023 11:13 AM REWRITE EDITOR): Chronic problem. A1c at goal/stable today at 5.9%. Current medications: Jardiance 25mg daily Metformin 1000mg daily Trulicity 3mg weekly Toujeo 15 units daily Regular insulin 10 units for blood sugar over 150 (rarely uses) UTD on labs. DM eye exam completed at [facility]. Letter sent to get copy of [...] Description 06/06/2024 Telephone [facility] Diabetes and Endocrinology [address] [place] [address] [phone] Kaitlynn Vivas NP Request for Toujeo 05/28/2024 Telephone [facility] Diabetes and Endocrinology [address] [place] [address] [phone] Kaitlynn Vivas, PERSONALIZED LIVING MANAGER Med Management (Trulicity Pt Assistance) 05/22/2024 Orders Only [facility] Diabetes and Endocrinology [address] [place] [address] [phone] Provider, MD Oscar 05/14/2024 10:00 AM REWRITE EDITOR Office Visit [facility] Diabetes and Endocrinology [address] [place] [address] [phone] Kaitlynn Vivas, HELGA Type 2 diabetes mellitus with hyperglycemia, with long-term current use of insulin (HCC) (Primary Dx); Hypertension associated with type 2 diabetes mellitus (HCC); Hyperlipidemia associated with type 2 diabetes mellitus (HCC) from Last 3 Months Surgical History Surgery [...] on file Legal Sex Male 12:39 PM REWRITE EDITOR Gender Identity Not on file Sexual Orientation Straight 01/10/2024 11 :32 AM CDT Obstetrics History Last Filed Vital Signs Vital Sign Reading Time Taken Comments Blood Pressure 136/72 05/14/2024 9:52 AM REWRITE EDITOR Pulse 77 05/14/2024 9:52 AM REWRITE EDITOR Temperature 36.2 C (97.1 F) 03/18/2020 9:01 AM REWRITE EDITOR Respiratory Rate 20 01/10/2024 11:33 AM CDT Oxygen Saturation 96% 03/18/2020 9:01 AM REWRITE EDITOR Inhaled Oxygen Concentration - - Weight 120.2 kg (265 lb) 05/14/2024 9:52 AM REWRITE EDITOR Height 172.7 cm (5' 7.99 ) 05/14/2024 9:52 AM CS T Body Mass Index 40.3 05/14/2024 9:52 AM REWRITE EDITOR Plan of Treatment Health Maintenance Due Date Last Done Comments Colon Cancer Screening-Colonoscopy 1965 Hepatitis C Screening 1965 Prostate Cancer Screening-PSA 1965 Hepatitis B Screening 08/18/1981 Regular Well Visit/Exam 18-64 08/18/1981 Pneumococcal vaccine <65 (1 of 2 - PCV) 08/18/1982 Zoster Vaccine (1 of 2) 08/18/2013 Covid-19 Vaccine (2023-2 5 season) 2023 02/03/2022, 03/13/2021, 07/14/2020, Additional [...] Comments POCT GLUCOSE Routine 05/14/2024 9:55 AM REWRITE EDITOR Type 2 diabetes mellitus with hyperglycemia, with long-term current use of insulin (HCC) POCT HEMOGLOBIN A1C Routine 05/14/2024 9 :55 AM REWRITE EDITOR Type 2 diabetes mellitus with hyperglycemia, with long-term current use of insulin (HCC) HM DIABETES EYE EXAM Routine 04/16/2024 9:12 AM REWRITE EDITOR EGFR Routine 01/10/2024 12:21 PM CDT Type 2 diabetes mellitus with diabetic peripheral angiopathy with gangrene, unspecified whether oil heaterman insulin use (HCC) LIPID PANEL Routine 01/10/2024 12:21 PM CDT Type 2 diabetes mellitus with diabetic peripheral angiopathy with gangrene, unspecified whether residential insulin use (HCC) ALBUMIN CREATININE RATIO, URINE Routine 01/10/2024 12:21 PM CDT Type 2 diabetes mellitus with diabetic peripheral angiopathy with gangrene, unspecified whether oil heaterman insulin use (HCC) from Last 3 Months or Most Recently Relevant to Health Maintenance Results * (ABNORMAL) POCT hemoglobin A1c (05/14/2024 9:55 AM REWRITE EDITOR) Pathologist [facility] Hemoglobin A1C, POC 6.5 4.0 - 5.6 % Blood 05/14/2024 9:55 AM REWRITE EDITOR us Kaitlynn Vivas NP POINT OF CARE TEST ORDERA BLES Final Result * (ABNORMAL) POCT glucose (05/14/2024 9:55 AM REWRITE EDITOR) [facility] Glucose Blood, POC 145 mg/dL Blood 05/14/2024 9:55 AM REWRITE EDITOR us Kaitlynn Vivas NP POINT OF CARE TEST ORDERA BLES Final Result * DIABETES EYE EXAM (04/16/2024 9:12 AM REWRITE EDITOR) us Historical Provider HEALTH MAINTENANCE Final Result * (ABNORMAL) eGFR (01/10/2024 12:21 PM CDT) [facility] eGFR 52(L) >=60 mL/min/1. 73 m2 Comment: [...] ORDERABLES Final Resul t Performing Organization Address City/[facility] Co de Phone Number SÁNCHEZTIA NASCIM[place] [address] [place] [address] * (ABNORMAL) Albumin Creatinine Ratio, Urine (01/10/2024 12:21 PM CDT) Albumin Ur 1,411.4 mg/L Comment: Interpretive Data No reference range established. Current interpretive data was last revised 2018. Creatinine Ur 28.5 mg/dL LEX Comment: Interpretive Data No reference range established. Current interpretive data was last revised 2018. Albumin Creatinine Ratio, Ur 4,952(H) 1 - 29 mg/g LEX Urine 01/10/2024 12:2 1 PM CDT 01/10/2024 5:28 PM CDT us Dania Escoto MD LAB URINE ORDERABLES Final Resul t Performing Organization Address City/[facility] Co de Phone Number SÁNCHEZTIA NASCIM[place]O [address] [employer] [place], [place] [id number] * (ABNORMAL) Lipid panel (01/10/2024 12:21 PM [...] on 2017. Triglycerides 298(H) <=149 mg/dL LEX Comment: Interpretive Data Ages < or = [...] on 2017. HDL 36(L) >=40 mg/dL LEX Comment: Interpretive Data Ages < or = [...] 2017. LDL, calculated 89 <=129 mg/dL LEX Comment: Interpretive Data Ages < or = [...] BLOOD ORDERABLES Final Resul t LEX [place] [address] Department of Laboratories [place], [place] [phone] from Last 3 Months or Most Recently Relevant to Health Maintenance Insurance [facility] Care Teams Scallop Binder Relationship Specialty Start Date End Date Cain Mendoza MD [address] [address] PCP - General 02/03/11
--- OUTSIDE RECORDS SUMMARY | 2024-08-02 09:50 | XMS_ITS | Continuity of Care Document ---
Author Organization [facility] Address [address] [place] [address] Phone Care Team Providers Care Store Stock Associate Name Role Phone Yuriy Gonzales DO Unavailable Unavailable Advance Directives Directive Yes / No Effective Date File Name No Information Encounters Encounter Description Practice Location Reason(s) For Visit Diagnoses Date Provider Providers Copied on Encounter [facility], [address], [place], [place], [id number], [place] tel:[phone] [facility] No Information Christian Plummer. [address] [facility], [place], [address], [place]. tel:[phone] Family History Family Member Type Diagnosis Age At Onset No Information Payers Payer name Insurance type Covered alliance party ID Authoriza tion(s) No Information Social [...]
--- OUTSIDE RECORDS SUMMARY | 2024-08-02 09:50 | XMS_ITS | Clinical Summary ---
Author Organization [facility] Address [address] [place] [address] Care Team Providers Care Computer Technology Instructor Name Role Phone Cain Mendoza MD Primary Care Provider [phone] Allergies Active Allergy Reactions Criticality Noted Date [...] 9 Active fluticasone propionate (FLONASE) 50 mcg/spray [place], Suspension nasal inhaler Administer 1 [place] in each nostril. 9 Active ibuprofen (MOTRIN) [...] Take 100 mg by mouth. 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 Gender Identity Not on file Sexual Orientation [...] Description 08/24/2024 8:30 AM CDT Office Visit [facility] Oncology and Hematology - [place] [address] [facility] [address] [place] [address] Lewis Stanley MD [address] [place] [address] Health Maintenance Due Date Last [...] patient's age to complete this topic Insurance [facility] Member Subscriber Plan / Payer (Ef fective 2020-Present) Name:Rom CalderonSean Laura Relation to Subscriber:Self Name:Josebrittani Sean Calderon Payer ID:[id number] (NA) Type:HMO Address: [address] [place] [id number] [facility] Member Subscriber Plan / Payer ( fective 2020-Present) Name:Rom EllisSean Silva Relation to Subscriber:Self Name:Rom EllisSean Silva Laura Payer ID:[id number] (NAIC) Type:HMO Address: [address] [place] [id number] Care Teams Computer Technology Instructor Relationship Specialty Start Date End Date Cain Mendoza MD [address] [place] [address] [phone] PCP - General Family Practice 12/17/22
--- OUTSIDE RECORDS SUMMARY | 2024-08-02 09:50 | XMS_ITS | Referral Summary ---
Author Organization [facility] [address] [facility] Address [address] [place] [address] Care Team Providers Care Special Needs Child Caregiver Name Role Phone Cain Mendoza MD Primary Care Provider [phone] Encounters Date Type Department Care Team Description 06/06/2024 Telephone [facility] Diabetes and Endocrinology [address] [place] [phone] Kaitlynn Vivas NP Request for Toujeo 05/28/2024 Telephone [facility] Diabetes and Endocrinology [address] [place] [phone] Kaitlynn Vivas NP [facility] 05/22/2024 Orders Only [facility] Diabetes and Endocrinology [address] [place] [phone] ProviderOscar MD 05/14/2024 10:00 AM SYSTEMS MGR Office Visit [facility] Diabetes and Endocrinology [address] [place] [phone] Kaitlynn Vivas NP Type 2 diabetes mellitus with hyperglycemia, with long-term current use of insulin (HCC) (Primary Dx); Hypertension associated with type 2 diabetes mellitus (HCC); Hyperlipidemia associated with type 2 diabetes mellitus (HCC) from Last 3 Months Allergies Active Allergy [...] diabetic peripheral angiopathy with gangrene, unspecified whether subassembly assembler insulin use (HCC) One Touch Ultra Test Strips Check blood sugar twice daily Dx: E11.52 100 strip 11 5 Active blood-glucose meter miscIndications: Type 2 diabetes mellitus with diabetic peripheral angiopathy with gangrene, unspecified whether subassembly assembler insulin use (HCC) One touch Ultra Meter [...] 02/10/2023 Assessment & Plan (05/14/2024 10:05 AM SYSTEMS MGR): Chronic problem. Elevated upon arrival today. Currently taking Lisinopril 40mg, metoprolol XL 100mg daily, triamterene-HCTZ 37.5-25mg. Assessment & Plan (09/14/2023 10:10 AM CDT): Chronic problem, improved on recheck. Continue lisinopril, metoprolol, Maxzide, furosemide, diltiazem. Assessment & Plan (06/02/2023 12:31 PM SYSTEMS MGR): Chronic, well-controlled. Continue lisinopril Assessment & Plan (02/10/2023 10:37 AM SYSTEMS MGR): Chronic problem. Elevated upon arrival today. Currently taking Lisinopril 40mg, metoprolol XL 100mg daily, triamterene-HCTZ 37.5-25mg. Class 2 severe obesity due t o excess calories with serious comorbidity and body mass index (BMI) of 35.0 to 35.9 in adult 02/10/2023 Assessment & Plan (02/10/2023 3:18 PM SYSTEMS MGR): Actively working on weight loss. Difficulty w/exercise d/t chronic back pain. Discussed healthy diet and importance of regular physical activity (20- 30min/day, 150min/wk). Hyperlipidemia associated with type 2 diabetes cal epstein 10/28/2022 Assessment & Plan (05/14/2024 10:04 AM SYSTEMS MGR): Chronic problem. Near goal on current Atorvastatin 40mg & fenofibrate 135mg. Last lipid panel: 01/10/24 LDL=89, GM=704. Assessment & Plan (01/10/2024 1:15 PM CDT): Chronic, stable. Update lipid profile. Continue statin therapy with atorvastatin 40 mg daily Assessment & Plan (09/14/2023 10:10 AM CDT): Chronic problem. On statin therapy, no changes. Assessment & Plan (06/02/2023 12:31 PM SYSTEMS MGR): Chronic, stable. Continue combination therapy of atorvastatin 40 mg daily with fenofibrate Diet and exercise advised Assessment & Plan (02/10/2023 10:38 AM SYSTEMS MGR): Chronic problem. Near goal on current Atorvastatin 40mg & fenofibrate 135mg. Last lipid panel: 10/28/22 LDL=84, IC=453. Assessment & Plan (10/28/2022 3:49 PM CDT): LDL goal under 80 Update lipid profile Continue atorvastatin 40 mg daily Persistent proteinuria 10/02/2018 Chronic mastoiditis, right ear 01/25/2018 Conductive hearing loss of l eft ear with unrestricted hearing of right ear 10/06/2017 Chronic allergic rhinitis due to pollen 10/07/19 18 Morbid (severe) obesity due to excess calories 1 05/11/2016 Mixed hearing loss, bilateral 03/10/2017 half-way current use of insulin 03/10/2017 Body mass index (BMI) 45.0-49.9, adult 7 Chronic ethmoidal sinusitis 04/23/2016 Type 2 diabetes mellitus 08/18/2013 Overview (07/08/2016): DMII WO CMP NT ST UNCNTR Assessment & Plan (05/14/2024 10:27 AM SYSTEMS MGR): Chronic problem. A1c at goal/stable today at 6.5%. no changes at this time. Current medications: Jardiance 25mg daily Metformin 1000mg twice daily Trulicity 4.5 mg weekly (PAP) Toujeo 15 units daily (PAP) Regular insulin 10 units for blood sugar over 200 (rarely uses) UTD on labs. DM eye exam completed 12/16/22 mild NPDR wo DME [facility] Favio Abarca. Rosemary Ty 04/16/24. Letter sent to get copy of [...] Trulicity. Assessment & Plan (06/02/2023 12:30 PM SYSTEMS MGR): Chronic, well-controlled with risk of hypoglycemia Stop Toujeo Continue Jardiance 25 mg daily Continue Trulicity Patient to call if blood glucose persistently increased to over 150 Assessment & Plan (02/10/2023 11:13 AM SYSTEMS MGR): Chronic problem. A1c at goal/stable today at 5.9%. Current medications: Jardiance 25mg daily Metformin 1000mg daily Trulicity 3mg weekly Toujeo 15 units daily Regular insulin 10 units for blood sugar over 150 (rarely uses) UTD on labs. DM eye exam completed at [facility]. Letter sent to get copy of [...] on file Legal Sex Male 12:39 PM SYSTEMS MGR Gender Identity Not on file Sexual Orientation Straight 01/10/2024 11 :32 AM CDT Last Filed Vital Signs Vital Sign Reading Time Taken Comments Blood Pressure 136/72 05/14/2024 9:52 AM SYSTEMS MGR Pulse 77 05/14/2024 9:52 AM SYSTEMS MGR Temperature 36.2 C (97.1 F) 03/18/2020 9:01 AM SYSTEMS MGR Respiratory Rate 20 01/10/2024 11:33 AM CDT Oxygen Saturation 96% 03/18/2020 9:01 AM SYSTEMS MGR Inhaled Oxygen Concentration - - Weight 120.2 kg (265 lb) 05/14/2024 9:52 AM SYSTEMS MGR Height 172.7 cm (5' 7.99 ) 05/14/2024 9:52 AM CS T Body Mass Index 40.3 05/14/2024 9:52 AM SYSTEMS MGR Plan of Treatment Not on file Procedures Procedure Name Priority Date/Time Associated Diagnosis Comments POCT GLUCOSE Routine 05/14/2024 9:55 AM SYSTEMS MGR Type 2 diabetes mellitus with hyperglycemia, with long-term current use of insulin (HCC) POCT HEMOGLOBIN A1C Routine 05/14/2024 9 :55 AM SYSTEMS MGR Type 2 diabetes mellitus with hyperglycemia, with long-term current use of insulin (HCC) DIABETES EYE EXAM Routine 04/16/2024 9:12 AM SYSTEMS MGR EGFR Routine 01/10/2024 12:21 PM CDT Type 2 diabetes mellitus with diabetic peripheral angiopathy with gangrene, unspecified whether subassembly assembler insulin use (HCC) LIPID PANEL Routine 01/10/2024 12:21 PM CDT Type 2 diabetes mellitus with diabetic peripheral angiopathy with gangrene, unspecified whether fpc insulin use (HCC) ALBUMIN CREATININE RATIO, URINE Routine 01/10/2024 12:21 PM CDT Type 2 diabetes mellitus with diabetic peripheral angiopathy with gangrene, unspecified whether subassembly assembler insulin use (HCC) from Last 3 Months or Most Recently Relevant to Health Maintenance Results * (ABNORMAL) POCT hemoglobin A1c (05/14/2024 9:55 AM SYSTEMS MGR) Hemoglobin A1C, POC 6.5 4.0 - 5.6 % Blood 05/14/2024 9:55 AM SYSTEMS MGR us Kaitlynn Vivas NP POINT OF CARE TEST ORDERA BLES Final Result * (ABNORMAL) POCT glucose (05/14/2024 9:55 AM SYSTEMS MGR) Glucose Blood, POC 145 mg/dL Blood 05/14/2024 9:55 AM SYSTEMS MGR us Kaitlynn Vivas NP POINT OF CARE TEST ORDERA BLES Final Result * DIABETES EYE EXAM (04/16/2024 9:12 AM SYSTEMS MGR) us Historical Provider HEALTH MAINTENANCE Final Result [...] BLOOD ORDERABLES Final Resul t LEX [place] [address] [place] [address] * (ABNORMAL) Albumin Creatinine Ratio, [...] LAB URINE ORDERABLES Final Resul t LEX [address] [facility] [place] [address] * (ABNORMAL) Lipid panel (01/10/2024 12:21 PM [...] Pediatrics 2011;128:S213 2. NCEP Expert Panel. Circulation 2003;110:227 Current Interpretive Data was last revised on [...] BLOOD ORDERABLES Final Resul t LEX [place] [address] Department [place] [address] from Last 3 Months or Most Recently Relevant to Health Maintenance Insurance [facility] Care Teams Special Needs Child Caregiver Relationship Specialty Start Date End Date Cain Mendoza MD [address] [address] PCP - General 02/03/11
--- OUTSIDE RECORDS SUMMARY | 2024-08-02 09:51 | XMS_ITS | Clinical Summary ---
Author Organization [facility] Address [address] [place] [phone] Phone Care Team Providers Care Loan Teller Name Role Phone Julio Puentes MD Primary Care Provider [phone] Allergies Active Allergy Reactions Criticality Noted Date [...] 3 TIMES DAILY 0 Active UltiCare Pen [place] 29G X 12.7MM misc USE 1 PEN [...] 2024 Insurance [employer] HMO Care Teams Loan Teller Relationship Specialty Start Date End Date Julio Puentes MD [address] [place] [address] PCP - General Family Medicine 10/02/18
--- OUTSIDE RECORDS SUMMARY | 2024-08-02 09:51 | XMS_ITS | Clinical Summary ---
Author Organization [facility] Address [address] [place] [address] Care Team Providers Care Handbell Choir Director Name Role Phone Julio Puentes MD Primary Care Provider [phone] Source Comments [facility] [employer],non-owned Affiliates and Associated Physician Practices is amultiple site organization consisting of ambulatory clinics and hospital sitesin [place], [place], [place] and [place]. This disclosure is being madepursuant to the Care Everywhere program and may not contain all information available regarding this patient. 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 Member ID:Not on file Relation to Subscriber:Not on file Name:CARI LAM Subscriber ID:Not on file (Home) Address: [address] [place] [address] Payer ID:Not on file Group ID:Not on file Type:Self Pay Address: [place], [place] Care Teams Handbell Choir Director Relationship Specialty Start Date End Date Julio Puentes MD [address] [place] [address] PCP - General Internal Medicine 02/23/19
--- OUTSIDE RECORDS SUMMARY | 2024-08-02 09:51 | XMS_ITS | Encounter Summary ---
Author Organization [facility] Care Team Providers Care Glassware Maker Demonstrator Name Role Phone Cain Mendoza MD Primary Care Provider [phone] Encounter Details Date Type Department Care Team (Latest Contact Info) Description 10/06/2017 Orders Only [facility] ProviderOscar MD [address] [place] [address] Social History Tobacco Use Types Packs/Day Years Used Date Smoking Tobacco: Never Assessed Alcohol Use Standard Drinks/Week Comments No 0 (1 standard drink = 0.6 oz pur e alcohol) Sex and Gender Information Value Date Recorded Sex Assigned at Not on file Legal Sex Male 12:39 PM SPOOL SANDER Gender Identity Not on file Sexual Orientation [...] on filedocumented in this encounter Care Teams Glassware Maker Demonstrator Relationship Specialty Start Date End Date Cain Mendoza MD [address] [address] PCP - General 02/03/11 documented as of this encounter
--- OUTSIDE RECORDS SUMMARY | 2024-08-02 09:51 | XMS_ITS | Encounter Summary ---
Author Organization [facility] Address [address] [place] [address] Care Team Providers Care End Lathe Operator Name Role Phone Cain Mendoza MD Primary Care Provider [phone] Encounter Details Date Type Department Care Team (Late st Contact Info) Description 04/07/2001 Outpatient Historical [facility] OP SP[place] [address] [facility] [place] [address] Social History Tobacco Use Types Packs/Day Years Used Date Smoking Tobacco: Never Assessed Sex and Gender Information Value Date Recorded Sex Assigned at Not on file Legal Sex Male 4:37 AM COMPLIANCE SPECIALIST Gender Identity Not on file Sexual Orientation Not on file documented as of this encounter Plan of Treatment Upcoming Encounters Date Type Department Care Team (Late st Contact Info) Description 08/24/2024 8:30 AM CDT Office Visit [facility] Oncology and Hematology - Franco [address] [facility] [address] [place] [address] Lewis Stanley MD [address] [facility] [address] [place] [address] documented as of this encounter Visit Diagnoses Not on filedocumented in this encounter Care Teams End Lathe Operator Relationship Specialty Start Date End Date Cain Mendoza MD [address] [place] [phone] PCP - General Family Practice 12/17/22 documented as of this encounter
--- OUTSIDE RECORDS SUMMARY | 2024-08-02 09:51 | XMS_ITS | Encounter Summary ---
Author Organization [facility] Address [address] [place] [address] Care Team Providers Care Shipping Associate Name Role Phone Cain Mendoza MD Primary Care Provider [phone] Reason for Visit * Reason Comments Medication Refill Encounter Details Date Type Department Care Team (Late Contact Info) Description 12/01/2012 Refill [facility] [place] [address] [facility] [place] [address] [place] [address] Madeline Talley MD [address] [place] [address] Social History Tobacco Use Types Packs/Day Years Used Date Smoking Tobacco: Never Assessed Sex and Gender Information Value Date Recorded Sex Assigned at Not on file Legal Sex Male 4:37 AM BUYING AGENT Gender Identity Not on file Sexual Orientation Not on file documented as of this encounter Miscellaneous Notes * Telephone Encounter - Rachell Russell - 12/02/2012 8:41 AM CDT Not our pt documented in this encounter Plan of Treatment Upcoming Encounters Date Type Department Care Team (Late st Contact Info) Description 08/24/2024 8:30 AM CDT Office Visit [facility] Oncology and Hematology - Franco [address] [facility] [address] [place] [address] Lewis Stanley MD [address] [facility] [address] [place] [address] documented as of this encounter Visit Diagnoses Not on filedocumented in this encounter Care Teams Shipping Associate Relationship Specialty Start Date End Date Cain Mendoza MD [address] [place] [address] PCP - General Family Practice 12/17/22 documented as of this encounter
--- OUTSIDE RECORDS SUMMARY | 2024-08-02 09:51 | XMS_ITS | Clinical Summary ---
Author Organization [facility] Address [address] [place] [address] Phone Care Team Providers Care Oyster Picker Name Role Phone Jabier Acosta Primary Care Provider [phone] Allergies Active Allergy Reactions Criticality Noted Date [...] file Insurance MEDICARE C [employer] Care Teams Oyster Picker Relationship Specialty Start Date End Date Jabier Acosta DO [address] [facility] [address] [place] [address] PCP - General Internal Medicine 10/05/21
--- OUTSIDE RECORDS SUMMARY | 2024-08-02 09:51 | XMS_ITS | Encounter Summary ---
Author Organization [facility] Address [address] [place] [address] Care Team Providers Care Manager Employment Name Role Phone Cain Mendoza MD Primary Care Provider [phone] Encounter Details Date Type Department Care Team (Latest Contact Info) Description 03/06/2001 Outpatient Historical [facility] [place] [address] [facility] [place] [address] PAIN IN LIMB (Primary Dx) Social History Tobacco Use Types Packs/Day Years Used Date Smoking Tobacco: Never Assessed Sex and Gender Information Value Date Recorded Sex Assigned at Not on file Legal Sex Male 4:37 AM EXHIBITIONS CURATOR Gender Identity Not on file Sexual Orientation Not on file documented as of this encounter Plan of Treatment Upcoming Encounters Date Type Department Care Team (Late st Contact Info) Description 08/24/2024 8:30 AM CDT Office Visit [facility] Oncology and Hematology - Franco [address] [facility] [address] [place] [address] Lewis Stanley MD [address] [facility] [address] [place] [address] documented as of this encounter Visit Diagnoses Diagnosis Pain in limb- Primary documented in this encounter Care Teams Manager Employment Relationship Specialty Start Date End Date Cain Mendoza MD [facility] [place] [address] PCP - General Family Practice 12/17/22 documented as of this encounter
--- OUTSIDE RECORDS SUMMARY | 2024-08-02 09:51 | XMS_ITS | Encounter Summary ---
Author Organization [facility] Address [address] [place] [address] Care Team Providers Care Bolt Labeler Name Role Phone Cain Mendoza MD Primary Care Provider [phone] Encounter Details Date Type Department Care Team (Late st Contact Info) Description 02/21/2001 Outpatient Historical [place] [address] [facility] [place] [address] Social History Tobacco Use Types Packs/Day Years Used Date Smoking Tobacco: Never Assessed Sex and Gender Information Value Date Recorded Sex Assigned at Not on file Legal Sex Male 4:37 AM COMBINE OPERATOR Gender Identity Not on file Sexual Orientation Not on file documented as of this encounter Plan of Treatment Upcoming Encounters Date Type Department Care Team (Late st Contact Info) Description 08/24/2024 8:30 AM CDT Office Visit [facility] Oncology and Hematology - Franco [address] [facility] [address] [place] [address] Lewis Stanley MD [address] [facility] [address] [place] [address] documented as of this encounter Visit Diagnoses Not on filedocumented in this encounter Care Teams Bolt Labeler Relationship Specialty Start Date End Date Cain Mendoza MD [address] [place] [phone] PCP - General Family Practice 12/17/22 documented as of this encounter
--- OUTSIDE RECORDS SUMMARY | 2024-08-02 09:51 | XMS_ITS | Encounter Summary ---
Author Organization [facility] Address [address] [place] [address] Care Team Providers Care Water/Wastewater Engineer Name Role Phone Cain Mendoza MD Primary Care Provider [phone] Encounter Details Date Type Department Care Team (Late st Contact Info) Description 03/21/2001 Outpatient Historical [facility] Social History Tobacco Use Types Packs/Day Years Used Date Smoking Tobacco: Never Assessed Sex and Gender Information Value Date Recorded Sex Assigned at Not on file Legal Sex Male 4:37 AM RAILCAR SWITCHER Gender Identity Not on file Sexual Orientation Not on file documented as of this encounter Plan of Treatment Upcoming Encounters Date Type Department Care Team (Late st Contact Info) Description 08/24/2024 8:30 AM CDT Office Visit [facility] Oncology and Hematology - Franco [address] [facility] [address] [place] [address] Lewis Stanley MD [address] [facility] [address] [place] [address] documented as of this encounter Visit Diagnoses Not on filedocumented in this encounter Care Teams Water/Wastewater Engineer Relationship Specialty Start Date End Date Cain Mendoza MD [facility] [place] [phone] PCP - General Family Practice 12/17/22 documented as of this encounter
--- OUTSIDE RECORDS SUMMARY | 2024-08-02 09:51 | XMS_ITS | Encounter Summary ---
Author Organization [facility] Address [address] [place] [address] Care Team Providers Care Trim And Burr Operator Name Role Phone Cain Mendoza MD Primary Care Provider [phone] Encounter Details Date Type Department Care Team (Late st Contact Info) Description 02/21/2001 Outpatient Historical [facility]LDG Social History Tobacco Use Types Packs/Day Years Used Date Smoking Tobacco: Never Assessed Sex and Gender Information Value Date Recorded Sex Assigned at Not on file Legal Sex Male 4:37 AM SAFETY REPRESENTATIVE Gender Identity Not on file Sexual Orientation Not on file documented as of this encounter Plan of Treatment Upcoming Encounters Date Type Department Care Team (Late st Contact Info) Description 08/24/2024 8:30 AM CDT Office Visit [facility] Oncology and Hematology - [place] [address] [facility] [address] [place] [address] Lewis Stanley MD [address] [facility] [address] [place] [address] documented as of this encounter Visit Diagnoses Not on filedocumented in this encounter Care Teams Trim And Burr Operator Relationship Specialty Start Date End Date Cain Mendoza MD [facility] [place] [phone] PCP - General Family Practice 12/17/22 documented as of this encounter
[2024-08-02] MEDS: PERFLUTREN LIPID MICROSPHERES 1.5 ML VIAL DILUTED TO 10 ML TOTAL VOLUME IV PUSH (10:30)
--- NOTE | 2024-08-02 10:41 | IVDEFINITY ---
Prior to administration of IV Definity the patient was educated on the risks and benefits of the imaging enhancing agent including potential adverse side effects. The patient verbalized understanding. Allergies were verified. No exclusion criteria were identified and at least one of the following inclusion criteria were met: 1) physician request, 2) patient technically difficult to image (per the [place] [employer] Echocardiography guidelines of two or more segments not discernable within the apical view), or 3) questionable left ventricular function. ?
== END 2024-08-02 09:23 | disposition home or self-care (01) ==
PROVIDERS: PCP Family Medicine; Visit Provider Internal Medicine Cardiovascular Disease
DX: I35.0 Nonrheumatic aortic (valve) stenosis (principal)
CPT/HCPCS: C8929; Q9957

== ENCOUNTER 2024-08-24 08:14 | Outpatient (CLI) | payer OTHER, SELFPAY ==
--- OUTSIDE RECORDS SUMMARY | 2024-08-24 08:17 | XMS_ITS | Referral Summary ---
Author Organization [facility] [address] [facility] tt Address [address] [place] [address] Care Team Providers Care Business Operations Analyst Name Role Phone Cain Mendoza MD Primary Care Provider [phone] Encounters Date Type Department Care Team Description 06/06/2024 Telephone [facility] Medical [facility] Diabetes and Endocrinology [address] [place] [address] Kaitlynn Vivas NP Request for Toujeo 05/28/2024 Telephone [facility] Diabetes and Endocrinology [address] [place] [address] Kaitlynn Vivas NP Med Management ([facility] Pt Assistance) from Last 3 Months Allergies Active Allergy [...] diabetic peripheral angiopathy with gangrene, unspecified whether snf insulin use (HCC) One Touch Ultra Test Strips Check blood sugar twice daily Dx: E11.52 100 strip 11 5 Active blood-glucose meter miscIndications: Type 2 diabetes mellitus with diabetic peripheral angiopathy with gangrene, unspecified whether electromechanical engineer insulin use ([facility]) One touch Ultra Meter Check blood sugar [...] 02/10/2023 Assessment & Plan (05/14/2024 10:05 AM AIRCRAFT NAVIGATOR): Chronic problem. Elevated upon arrival today. Currently taking Lisinopril 40mg, metoprolol XL 100mg daily, triamterene-HCTZ 37.5-25mg. Assessment & Plan (09/14/2023 10:10 AM CDT): Chronic problem, improved on recheck. Continue lisinopril, metoprolol, Maxzide, furosemide, diltiazem. Assessment & Plan (06/02/2023 12:31 PM AIRCRAFT NAVIGATOR): Chronic, well-controlled. Continue lisinopril Assessment & Plan (02/10/2023 10:37 AM AIRCRAFT NAVIGATOR): Chronic problem. Elevated upon arrival today. Currently taking Lisinopril 40mg, metoprolol XL 100mg daily, triamterene-HCTZ 37.5-25mg. Class 2 severe obesity due t o excess calories with serious comorbidity and body mass index (BMI) of 35.0 to 35.9 in adult 02/10/2023 Assessment & Plan (02/10/2023 3:18 PM AIRCRAFT NAVIGATOR): Actively working on weight loss. Difficulty w/exercise d/t chronic back pain. Discussed healthy diet and importance of regular physical activity (20- 30min/day, 150min/wk). Hyperlipidemia associated with type 2 diabetes cal tete 10/28/2022 Assessment & Plan (05/14/2024 10:04 AM AIRCRAFT NAVIGATOR): Chronic problem. Near goal on current Atorvastatin 40mg & fenofibrate 135mg. Last lipid panel: 01/10/24 LDL=89, FT=672. Assessment & Plan (01/10/2024 1:15 PM CDT): Chronic, stable. Update lipid profile. Continue statin therapy with atorvastatin 40 mg daily Assessment & Plan (09/14/2023 10:10 AM CDT): Chronic problem. On statin therapy, no changes. Assessment & Plan (06/02/2023 12:31 PM AIRCRAFT NAVIGATOR): Chronic, stable. Continue combination therapy of atorvastatin 40 mg daily with fenofibrate Diet and exercise advised Assessment & Plan (02/10/2023 10:38 AM AIRCRAFT NAVIGATOR): Chronic problem. Near goal on current Atorvastatin 40mg & fenofibrate 135mg. Last lipid panel: 10/28/22 LDL=84, QK=437. Assessment & Plan (10/28/2022 3:49 PM CDT): [...] UNCNTR Assessment & Plan (05/14/2024 10:27 AM AIRCRAFT NAVIGATOR): Chronic problem. A1c at goal/stable today at [...] Trulicity. Assessment & Plan (06/02/2023 12:30 PM AIRCRAFT NAVIGATOR): Chronic, well-controlled with risk of hypoglycemia Stop Toujeo Continue Jardiance 25 mg daily Continue Trulicity Patient to call if blood glucose persistently increased to over 150 Assessment & Plan (02/10/2023 11:13 AM AIRCRAFT NAVIGATOR): Chronic problem. A1c at goal/stable today at 5.9%. Current medications: Jardiance 25mg daily Metformin 1000mg daily Trulicity 3mg weekly Toujeo 15 units daily Regular insulin 10 units for blood sugar over 150 (rarely uses) UTD on labs. DM eye exam completed at [facility]. Letter sent to get copy of [...] you are drinking? Patient does not drink 10/08/202 4 Q3: How often do you have si [...] on file Legal Sex Male 12:39 PM AIRCRAFT NAVIGATOR Gender Identity Not on file Sexual Orientation Straight 01/10/2024 11 :32 AM CDT Last Filed Vital Signs Vital Sign Reading Time Taken Comments Blood Pressure 136/72 05/14/2024 9:52 AM AIRCRAFT NAVIGATOR Pulse 77 05/14/2024 9:52 AM AIRCRAFT NAVIGATOR Temperature 36.2 C (97.1 F) 03/18/2020 9:01 AM AIRCRAFT NAVIGATOR Respiratory Rate 20 01/10/2024 11:33 AM CDT Oxygen Saturation 96% 03/18/2020 9:01 AM AIRCRAFT NAVIGATOR Inhaled Oxygen Concentration - - Weight 120.2 kg (265 lb) 05/14/2024 9:52 AM AIRCRAFT NAVIGATOR Height 172.7 cm (5' 7.99 ) 05/14/2024 9:52 AM CS T Body Mass Index 40.3 05/14/2024 9:52 AM AIRCRAFT NAVIGATOR Plan of Treatment Not on file Procedures Procedure Name Priority Date/Time Associated Diagnosis Comments POCT HEMOGLOBIN A1C Routine 05/14/2024 9 :55 AM AIRCRAFT NAVIGATOR Type 2 diabetes mellitus with hyperglycemia, with long-term current use of insulin (HCC) HM DIABETES EYE EXAM Routine 04/16/2024 9:12 AM AIRCRAFT NAVIGATOR EGFR Routine 01/10/2024 12:21 PM CDT Type 2 diabetes mellitus with diabetic peripheral angiopathy with gangrene, unspecified whether electromechanical engineer insulin use (HCC) LIPID PANEL Routine 01/10/2024 12:21 PM CDT Type 2 diabetes mellitus with diabetic peripheral angiopathy with gangrene, unspecified whether snf insulin use (HCC) ALBUMIN CREATININE RATIO, URINE Routine 01/10/2024 12:21 PM CDT Type 2 diabetes mellitus with diabetic peripheral angiopathy with gangrene, unspecified whether snf insulin use (HCC) from Last 3 Months or Most Recently Relevant to Health Maintenance Results * (ABNORMAL) POCT hemoglobin A1c (05/14/2024 9:55 AM AIRCRAFT NAVIGATOR) Hemoglobin A1C, POC 6.5 4.0 - 5.6 % Blood 05/14/2024 9:55 AM AIRCRAFT NAVIGATOR Kaitlynn Vivas NP POINT OF CARE TEST ORDERA BLES Final Result * HM DIABETES EYE EXAM (04/16/2024 9:12 AM AIRCRAFT NAVIGATOR) Oscar De La Fuente MD HEALTH MAINTENANCE Final Result * (ABNORMAL) eGFR [...] 1 PM CDT 01/10/2024 5:42 PM CDT Danai Escoto MD LAB BLOOD ORDERABLES Final Resul t LEX [id number] Department [place] [address] * (ABNORMAL) Albumin Creatinine Ratio, Urine (01/10/2024 [...] URINE ORDERABLES Final Resul t LEX [place] [address] Department [place] [address] * (ABNORMAL) Lipid panel (01/10/2024 12:21 PM [...] NCEP Expert Panel. Circulation 2004;110:227 3. Dontrell Clark al. CORDELL Cardiol. 2020 August 02;5(5):540-548. doi: [...] last revised on 2017. Chol/HDL ratio 5 CERTIA CH Blood 01/10/2024 12:2 1 PM CDT 01/10/2024 5:28 PM CDT us Dania Escoto MD LAB BLOOD ORDERABLES Final Resul t LEX [address] Department [place] [address] from Last 3 Months or Most Recently Relevant to Health Maintenance Insurance [facility] Care Teams Business Operations Analyst Relationship Specialty Start Date End Date Cain Mnedoza MD [address] [facility] [address] [place] [address] PCP - General 02/03/11
--- OUTSIDE RECORDS SUMMARY | 2024-08-24 08:17 | XMS_ITS | Clinical Summary ---
Author Organization [facility] Address [address] [place] [address] Care Team Providers Care Administration Internship Name Role Phone Cain Mendoza MD Primary Care Provider [phone] Allergies Active Allergy Reactions Criticality Noted Date [...] 9 Active fluticasone propionate (FLONASE) 50 mcg/spray Warner, Suspension nasal inhaler Administer 1 Warner in each nostril. 9 Active ibuprofen (MOTRIN) [...] Take 100 mg by mouth. Active Insulin [place], Disposable, (UltiCare Pen Needle) 29 gauge x [...] on file Legal Sex Male 4:37 AM PHARMACEUTICAL SALES Gender Identity Not on file Sexual Orientation [...] [facility] [place] [facility] - [place] [address] [facility] [address] [place] [address] Lewis Stanley MD [address] [facility] [address] [place] [address] Health Maintenance Due Date Last [...] - T d or Tdap) 10/06/2031 10/05/2021 Insurance [facility] [address] [place] [address] Care Teams Administration Internship Relationship Specialty Start Date End Date Cain Mendoza MD [address] [place] [address] PCP - General Family Practice 12/17/22
--- OUTSIDE RECORDS SUMMARY | 2024-08-24 08:17 | XMS_ITS | Clinical Summary ---
Author Organization [facility] [address] [facility] tt Address [address] [place] [address] Care Team Providers Care Cw Operator Name Role Phone Cain Mendoza MD Primary Care Provider [phone] Allergies Active Allergy Reactions Criticality Noted Date [...] diabetic peripheral angiopathy with gangrene, unspecified whether local intermodal truck driver insulin use (HCC) One Touch Ultra Test Strips Check blood sugar twice daily Dx: E11.52 100 strip 11 5 Active blood-glucose meter miscIndications: Type 2 diabetes mellitus with diabetic peripheral angiopathy with gangrene, unspecified whether senior living insulin use (HCC) One touch Ultra Meter [...] 02/10/2023 Assessment & Plan (05/14/2024 10:05 AM MILITARY PROFESSIONAL): Chronic problem. Elevated upon arrival today. Currently taking Lisinopril 40mg, metoprolol XL 100mg daily, triamterene-HCTZ 37.5-25mg. Assessment & Plan (09/14/2023 10:10 AM CDT): Chronic problem, improved on recheck. Continue lisinopril, metoprolol, Maxzide, furosemide, diltiazem. Assessment & Plan (06/02/2023 12:31 PM MILITARY PROFESSIONAL): Chronic, well-controlled. Continue lisinopril Assessment & Plan (02/10/2023 10:37 AM MILITARY PROFESSIONAL): Chronic problem. Elevated upon arrival today. Currently taking Lisinopril 40mg, metoprolol XL 100mg daily, triamterene-HCTZ 37.5-25mg. Class 2 severe obesity due t o excess calories with serious comorbidity and body mass index (BMI) of 35.0 to 35.9 in adult 02/10/2023 Assessment & Plan (02/10/2023 3:18 PM MILITARY PROFESSIONAL): Actively working on weight loss. Difficulty w/exercise d/t chronic back pain. Discussed healthy diet and importance of regular physical activity (20- 30min/day, 150min/wk). Hyperlipidemia associated with type 2 diabetes cal epstein 10/28/2022 Assessment & Plan (05/14/2024 10:04 AM MILITARY PROFESSIONAL): Chronic problem. Near goal on current Atorvastatin 40mg & fenofibrate 135mg. Last lipid panel: 01/10/24 LDL=89, LD=204. Assessment & Plan (01/10/2024 1:15 PM CDT): Chronic, stable. Update lipid profile. Continue statin therapy with atorvastatin 40 mg daily Assessment & Plan (09/14/2023 10:10 AM CDT): Chronic problem. On statin therapy, no changes. Assessment & Plan (06/02/2023 12:31 PM MILITARY PROFESSIONAL): Chronic, stable. Continue combination therapy of atorvastatin 40 mg daily with fenofibrate Diet and exercise advised Assessment & Plan (02/10/2023 10:38 AM MILITARY PROFESSIONAL): Chronic problem. Near goal on current Atorvastatin 40mg & fenofibrate 135mg. Last lipid panel: 10/28/22 LDL=84, YX=388. Assessment & Plan (10/28/2022 3:49 PM CDT): LDL goal under 80 Update lipid profile Continue atorvastatin 40 mg daily Persistent proteinuria 10/02/2018 Chronic mastoiditis, right ear 01/25/2018 Conductive hearing loss of l eft ear with unrestricted hearing of right ear 10/06/2017 Chronic allergic rhinitis due to pollen 10/07/19 18 Morbid (severe) obesity due to excess calories 1 05/11/2016 Mixed hearing loss, bilateral 03/10/2017 [facility] current use of insulin 03/10/2017 Body mass index (BMI) 45.0-49.9, adult 7 Chronic ethmoidal sinusitis 04/23/2016 Type 2 diabetes mellitus 08/18/2013 Overview (07/08/2016): DMII WO CMP NT ST UNCNTR Assessment & Plan (05/14/2024 10:27 AM MILITARY PROFESSIONAL): Chronic problem. A1c at goal/stable today at 6.5%. no changes at this time. Current medications: Jardiance 25mg daily Metformin 1000mg twice daily Trulicity 4.5 mg weekly (PAP) Toujeo 15 units daily (PAP) Regular insulin 10 units for blood sugar over 200 (rarely uses) UTD on labs. DM eye exam completed 12/16/22 mild NPDR wo DME [facility] Favio Abarca. [facility] [place] 04/16/24. Letter sent to get copy of [...] Trulicity. Assessment & Plan (06/02/2023 12:30 PM MILITARY PROFESSIONAL): Chronic, well-controlled with risk of hypoglycemia Stop Toujeo Continue Jardiance 25 mg daily Continue Trulicity Patient to call if blood glucose persistently increased to over 150 Assessment & Plan (02/10/2023 11:13 AM MILITARY PROFESSIONAL): Chronic problem. A1c at goal/stable today at 5.9%. Current medications: Jardiance 25mg daily Metformin 1000mg daily Trulicity 3mg weekly Toujeo 15 units daily Regular insulin 10 units for blood sugar over 150 (rarely uses) UTD on labs. DM eye exam completed at [facility]. Letter sent to get copy of [...] Type Department Care Team Description 06/06/2024 Telephone [facility] Diabetes and Endocrinology [address] [place] [address] Kaitlynn Vivas NP Request for Toujeo 05/28/2024 Telephone [facility] Diabetes and Endocrinology [address] [place] [address] Kaitlynn Vivas NP Med Management (Trulicity Pt Assistance) from Last 3 Months Surgical History Surgery [...] on file Legal Sex Male 12:39 PM MILITARY PROFESSIONAL Gender Identity Not on file Sexual Orientation Straight 01/10/2024 11 :32 AM CDT Obstetrics History Last Filed Vital Signs Vital Sign Reading Time Taken Comments Blood Pressure 136/72 05/14/2024 9:52 AM MILITARY PROFESSIONAL Pulse 77 05/14/2024 9:52 AM MILITARY PROFESSIONAL Temperature 36.2 C (97.1 F) 03/18/2020 9:01 AM MILITARY PROFESSIONAL Respiratory Rate 20 01/10/2024 11:33 AM CDT Oxygen Saturation 96% 03/18/2020 9:01 AM MILITARY PROFESSIONAL Inhaled Oxygen Concentration - - Weight 120.2 kg (265 lb) 05/14/2024 9:52 AM MILITARY PROFESSIONAL Height 172.7 cm (5' 7.99 ) 05/14/2024 9:52 AM CS T Body Mass Index 40.3 05/14/2024 9:52 AM MILITARY PROFESSIONAL Plan of Treatment Health Maintenance Due Date Last Done Comments Colon Cancer Screening-Colonoscopy 1965 Hepatitis C Screening 1965 Prostate Cancer Screening-PSA 1965 Hepatitis B Screening 08/18/1981 Regular Well Visit/Exam 18-64 08/18/1981 Pneumococcal vaccine <65 (1 of 2 - PCV) 08/18/1982 Zoster Vaccine (1 of 2) 08/18/2013 Covid-19 Vaccine (2023-2 5 season) 2023 02/03/2022, 03/13/2021, 07/14/2020, Additional history exists Hemoglobin A1C 11/11/2024 05/14/2024, 11/2023, 09/14/2023, Additional history exists Influenza Vaccine (Season Ended) 2024 Albumin Creatinine Ratio, Urine 01/09/2025 , 11/01/2022 Depression Screening 01/09/2025 01/10/2024, 01/10/20 24 Lipid Panel 01/09/2025 01/10/2024, 10/28/2022 eGFR 01/09/2025 01/10/2024, 10/28/2022 Dilated Eye Exam 04/16/2025 04/16/2024, 12/16/2022 Foot Exam 05/14/2025 05/14/2024, 02/10/2023 DTaP/Tdap/Td Vaccine (3 - Td or Tdap) 10/06/2031 10/05/2021, 09/30/2017 Procedures Procedure Name Priority Date/Time Associated Diagnosis Comments POCT HEMOGLOBIN A1C Routine 05/14/2024 9 :55 AM MILITARY PROFESSIONAL Type 2 diabetes mellitus with hyperglycemia, with long-term current use of insulin (HCC) HM DIABETES EYE EXAM Routine 04/16/2024 9:12 AM MILITARY PROFESSIONAL EGFR Routine 01/10/2024 12:21 PM CDT Type 2 diabetes mellitus with diabetic peripheral angiopathy with gangrene, unspecified whether senior living insulin use (HCC) LIPID PANEL Routine 01/10/2024 12:21 PM CDT Type 2 diabetes mellitus with diabetic peripheral angiopathy with gangrene, unspecified whether local intermodal truck driver insulin use (HCC) ALBUMIN CREATININE RATIO, URINE Routine 01/10/2024 12:21 PM CDT Type 2 diabetes mellitus with diabetic peripheral angiopathy with gangrene, unspecified whether local intermodal truck driver insulin use (HCC) from Last 3 Months or Most Recently Relevant to Health Maintenance Results * (ABNORMAL) POCT hemoglobin A1c (05/14/2024 9:55 AM MILITARY PROFESSIONAL) [facility] Hemoglobin A1C, POC 6.5 4.0 - 5.6 % Blood 05/14/2024 9:55 AM MILITARY PROFESSIONAL Result [facility] Kaitlynn Vivas CHIEF DESIGN DRAFTER POINT OF CARE TEST ORDERA BLES Final Result * HM DIABETES EYE EXAM (04/16/2024 9:12 AM MILITARY PROFESSIONAL) Result [facility] Historical Provider HEALTH MAINTENANCE Final Result * [...] LAB BLOOD ORDERABLES Final Resul t LEX [address] Department [place] [address] * (ABNORMAL) Albumin Creatinine Ratio, Urine (01/10/2024 12:21 PM CDT) Albumin Ur 1,411.4 mg/L Comment: Interpretive Data No reference range established. Current interpretive data was last revised 2018. Creatinine Ur 28.5 mg/dL [facility] Comment: Interpretive Data No reference range established. Current interpretive data was last revised 2018. Albumin Creatinine Ratio, Ur 4,952(H) 1 - 29 mg/g LEX Urine 01/10/2024 12:2 1 PM CDT 01/10/2024 5:28 PM CDT us Dania Esctoo MD LAB URINE ORDERABLES Final Resul t [facility] [address] Department [place] [address] * (ABNORMAL) Lipid panel (01/10/2024 12:21 PM [...] revised on 2017. Triglycerides 298(H) <=149 mg/dL [facility] Comment: Interpretive Data Ages < or = [...] BLOOD ORDERABLES Final Resul t [place] Department [place] [address] from Last 3 Months or Most Recently Relevant to Health Maintenance Insurance [facility] Care Teams Cw Operator Relationship Specialty Start Date End Date Cain Mendoza MD [address] [address] PCP - General 02/03/11
--- OUTSIDE RECORDS SUMMARY | 2024-08-24 08:17 | XMS_ITS | Continuity of Care Document ---
Author Organization [facility] Address [address] [place] [address] Phone Care Team Providers Care Nuclear Medicine Officer Name Role Phone Yuriy Gonzales DO Unavailable Unavailable Advance Directives Directive Yes / No Effective Date File Name No Information Encounters Encounter Description Practice Location Reason(s) For Visit Diagnoses Date Provider Providers Copied on Encounter [facility], [address], [place], [place], [id number], [place] tel:[phone] [facility] No Information Christian Plummer. [address] [facility], [place], [address], [place]. tel:[phone] Family History Family Member Type Diagnosis Age At Onset No Information Payers Payer name Insurance type Covered democrat ID Authoriza tion(s) No Information Social History [...]
--- OUTSIDE RECORDS SUMMARY | 2024-08-24 08:18 | XMS_ITS | Clinical Summary ---
Author Organization [facility] Address [address] [place] [address] Phone Care Team Providers Care Court Operations Clerk Name Role Phone Jabier Acosta Primary Care Provider [phone] Allergies Active Allergy Reactions Criticality Noted Date [...] file Insurance MEDICARE C ESSENCE Care Teams Court Operations Clerk Relationship Specialty Start Date End Date Jabier Acosta DO [address] [facility] [address] [place] [address] PCP - General Internal Medicine 10/05/21
--- OUTSIDE RECORDS SUMMARY | 2024-08-24 08:18 | XMS_ITS | Encounter Summary ---
Author Organization [facility] Address [address] [place] [address] Care Team Providers Care Video Editing Internship Name Role Phone Cain Mendoza MD Primary Care Provider [phone] Reason for Visit * Reason Comments Medication Refill Encounter Details Date Type Department Care Team (Late Contact Info) Description 12/01/2012 Refill [facility] [place] [address] [facility] [address] [place] [address] Madeline Talley MD [address] [place] [address] Social History Tobacco Use Types Packs/Day Years Used Date Smoking Tobacco: Never Assessed Sex and Gender Information Value Date Recorded Sex Assigned at Not on file 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 Gender Identity Not on file Sexual Orientation Not on file documented as of this encounter Miscellaneous Notes * Telephone Encounter - Rachell Russell - 12/02/2012 8:41 AM CDT Not our pt documented in this encounter Plan of Treatment Upcoming Encounters Date Type Department Care Team (Late st Contact Info) Description 08/24/2024 8:30 AM CDT Office Visit [facility] Oncology and Hematology - [address] [facility] [address] [place] [address] Lewis Stanley MD [address] [facility] [address] [place] [address] documented as of this encounter Visit Diagnoses Not on filedocumented in this encounter Care Teams Video Editing Internship Relationship Specialty Start Date End Date Cain Mendoza MD [address] [place] [address] PCP - General Family Practice 12/17/22 documented as of this encounter
--- OUTSIDE RECORDS SUMMARY | 2024-08-24 08:18 | XMS_ITS | Encounter Summary ---
Author Organization [facility] Address 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 [address] [place] [address] documented as of this encounter Visit Diagnoses Not on filedocumented in this encounter Care Teams Hvac Residential Service Technician Relationship Specialty Start Date End Date Cain Mnedoza MD [facility] [place] [phone] PCP - General Family Practice 12/17/22 documented as of this encounter
--- OUTSIDE RECORDS SUMMARY | 2024-08-24 08:18 | XMS_ITS | Encounter Summary ---
Author Organization [facility] Address [address] [place] [address] Care Team Providers Care Custodian Blood Bank Name Role Phone Cain Mendoza MD Primary Care Provider [phone] Encounter Details Date Type Department Care Team (Latest Contact Info) Description 03/06/2001 Outpatient Historical [facility] [place] [address] 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 Gender Identity Not on file Sexual Orientation Not on file documented as of this encounter Plan of Treatment Upcoming Encounters Date Type Department Care Team (Late st Contact Info) Description 08/24/2024 8:30 AM CDT Office Visit [facility] Oncology and Hematology - [place] [address] [facility] [address] [place] [address] Lewis Stanley MD [address] [facility] [address] [place] [address] documented as of this encounter Visit Diagnoses Diagnosis Pain in limb- Primary documented in this encounter Care Teams Custodian Blood Bank Relationship Specialty Start Date End Date Cain Mendoza MD [facility] [place] [address] PCP - General Family Practice 12/17/22 documented as of this encounter
--- OUTSIDE RECORDS SUMMARY | 2024-08-24 08:18 | XMS_ITS | Encounter Summary ---
Author Organization [facility] Address 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 Gender Identity Not on file Sexual Orientation Not on file documented as of this encounter Plan of Treatment Upcoming Encounters Date Type Department Care Team (Late st Contact Info) Description 08/24/2024 8:30 AM CDT Office Visit [facility] Oncology and Hematology - [place] [address] [facility] [address] [place] [address] Lewis Stanley MD [address] [facility] [address] [place] [address] documented as of this encounter Visit Diagnoses Not on filedocumented in this encounter Care Teams Gsa Coordinator Relationship Specialty Start Date End Date Cain Mendoza MD [facility] [place] [phone] PCP - General Family Practice 12/17/22 documented as of this encounter
--- OUTSIDE RECORDS SUMMARY | 2024-08-24 08:18 | XMS_ITS | Encounter Summary ---
Author Organization [facility] Care Team Providers Care Theatrical Agent Name Role Phone Cain Mendoza MD Primary Care Provider [phone] Encounter Details Date Type Department Care Team (Latest Contact Info) Description 10/06/2017 Orders Only [facility] Provider, MD Oscar [address] [place] [address] Social History Tobacco Use Types Packs/Day Years Used Date Smoking Tobacco: Never Assessed Alcohol Use Standard Drinks/Week Comments No 0 (1 standard drink = 0.6 oz pur e alcohol) Sex and Gender Information Value Date Recorded Sex Assigned at Not on file 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
--- OUTSIDE RECORDS SUMMARY | 2024-08-24 08:18 | XMS_ITS | Encounter Summary ---
Author Organization [facility] Address 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 Gender Identity Not on file Sexual Orientation Not on file documented as of this encounter Plan of Treatment Upcoming Encounters Date Type Department Care Team (Late st Contact Info) Description 08/24/2024 8:30 AM CDT Office Visit [facility] Oncology and Hematology - [place] [address] [facility] [address] [place] [address] Lewis Stanley MD [address] [facility] [address] [place] [address] documented as of this encounter Visit Diagnoses Not on filedocumented in this encounter Care Teams Cigarette Machine Operator Relationship Specialty Start Date End Date Cain Mendoza MD [address] [place] [phone] PCP - General Family Practice 12/17/22 documented as of this encounter
--- OUTSIDE RECORDS SUMMARY | 2024-08-24 08:18 | XMS_ITS | Clinical Summary ---
Author Organization [facility] Address [address] [place] [address] Phone Care Team Providers Care Glass Mechanic Name Role Phone Julio Puentes MD Primary Care Provider [phone] Allergies Active Allergy Reactions Criticality Noted Date [...] 3 TIMES DAILY 0 Active UltiCare Pen [place] 29G X 12.7MM misc USE 1 PEN [...] Health Maintenance Due Date Last Done Comments Influenza Vaccine (Season Ended) 2024 Insurance [employer] MEDICARE HMO Care Teams Glass Mechanic Relationship Specialty Start Date End Date Julio Puentes MD [address] [place] [phone] PCP - General Family Medicine 10/02/18
--- OUTSIDE RECORDS SUMMARY | 2024-08-24 08:18 | XMS_ITS | Encounter Summary ---
Author Organization [facility] Address 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 [address] [place] [address] Lewis Stanley MD [address] [facility] [address] [place] [address] documented as of this encounter Visit Diagnoses Not on filedocumented in this encounter Care Teams Bark Skinner Relationship Specialty Start Date End Date Cain Mendoza MD [address] [place] [phone] PCP - General Family Practice 12/17/22 documented as of this encounter
--- OUTSIDE RECORDS SUMMARY | 2024-08-24 08:18 | XMS_ITS | Clinical Summary ---
Author Organization [facility] Address [address] [facility] [place] [address] Care Team Providers Care Manufactured Buildings Supervisor Name Role Phone Julio Puentes MD Primary Care Provider [phone] Source Comments [facility],non-owned Affiliates and Associated Physician Practices is amultiple site organization consisting of ambulatory clinics and hospital sitesin [place], [place], [place] and [place]. This disclosure is being madepursuant to the Care Everywhere program and may not contain all information available regarding this patient. 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 MEDICARE SELF PAY NO INSURANCE Member Subscriber Plan / Payer (Ef fective for All Dates) Name:Cari Lam Jr. Member ID:Not on file Relation to Subscriber:Not on file Name:CARI LAM Subscriber ID:Not on file (Home) Address: [address] [place] [address] Payer ID:Not on file Group ID:Not on file Type:Self Pay Address: [place], [place] Care Teams Manufactured Buildings Supervisor Relationship Specialty Start Date End Date Julio Puentes MD [address] [place] [address] PCP - General Internal Medicine 02/23/19
[2024-08-24 08:29] LABS: Hematocrit 43.5 % (42.0-52.0); Hemoglobin 14.3 g/dL (14.0-18.0); Mean Corpuscular HGB Conc 32.9 g/dl (32-36); Mean Corpuscular Hemoglobin 28.1 pg (26-34); Mean Corpuscular Volume 85.6 fl (80-100); Mean Platelet Volume 8.8 fl (7.4-10.4); Platelet Count Result 211 k/mm3 (150-375); Red Blood Count 5.08 M/mm3 (4.6-6.20); Red Cell Distribution Width 14.3 % (11.5-14.5); White Blood Count 9.6 K/mm3 (4.5-10.0)
[2024-08-24 08:33] LABS: Blood Urea Nitrogen 34 mg/dL (8-26); Carbon Dioxide 26 mmol/L (22-30); Chloride 98 mmol/L (98-109); Estimated Glomerular Filt Rate 48; Glucose 111 mg/dL (70-105); Ionized Calcium (POC) 1.15 mmol/L (1.11-1.31); Potassium 3.8 mmol/L (3.5-4.9); Sodium 137 mmol/L (138-146)
== END 2024-08-24 08:15 | disposition home or self-care (01) ==
LOC: ANHLAB 08:16
PROVIDERS: PCP Family Medicine; Visit Provider Internal Medicine Hematology & Oncology
DX: D75.1 Secondary polycythemia (principal)
CPT/HCPCS: 36415; 80047; 85027

== ENCOUNTER 2024-09-20 09:45 | Outpatient (CLI) | payer OTHER, SELFPAY ==
--- NOTE | ~2024-09-20 | CT_ITS ---
CT Scan of the Chest without Contrast: Clinical Indication: Lung cancer screening, nicotine dependence Technique: Contiguous sections were acquired throughout the chest without intravenous contrast. Dose reduction technique was used on this scan by utilizing automated exposure control and iterative recon struction technique. The dose-length product (DLP) was 489.40 mGy-cm. COMPARISON: 07/19/2024 Findings: There is no evidence of any significant mediastinal, hilar or axillary lymphadenopathy. Coronary hoda ry calcifications are present. There is no evidence of pleural or pericardial effusion. Stable 11 mm right apical pulmonary nodule. Left lung clear. Images through the upper abdomen reveal no abnormalities. Impression: Stable 11 mm apical pulmonary nodule. Left lung now clear. Reviewed, dictated and finalized at location . Impression: Stable 11 mm apical pulmonary nodule. Left lung now clear.
--- OUTSIDE RECORDS SUMMARY | 2024-09-20 10:15 | XMS_ITS | Clinical Summary ---
Author Organization [facility] [address] [facility] tt Address [address] [facility] [place] [address] Care Team Providers Care Full Charge Bookkeeper Name Role Phone Cain Mendoza MD Primary Care Provider [phone] Allergies Active Allergy Reactions Criticality Noted Date [...] daily Active atorvastatin (LIPITOR) 40 mg tablet 01/05/20 19 Active fenofibrate choline (TRILIPIX) 135 mg capsule 02/04/20 19 Active lisinopril (PRINIVIL,ZEST RIL) 40 mg tablet 02/06/20 19 Active metFORMIN (GLUCOPHAGE) 1,000 mg tablet Take 1 tablet (1,000 mg total) by mouth 2 (two) times a day with meals Active SURE COMFORT INSULIN SYRINGE 1 mL 29 gauge x 1/2 syringe 12/12/19 19 Active TRIAMTERENE-HY DROCHLOROTHIAZ TARUN 37.5-25 mg per tablet 02/10/20 19 Active fluticasone propionate (FLONASE) 50 mcg/actuation nasal sprayIndicatio ns:Chronic seasonal allergic rhinitis Administer 1 spray into each nostril daily 16 g 3 03/05/20 19 Active cholecalcifero l (VITAMIN D-3) 5,000 unit capsule Take by mouth Act kathia cyclobenzaprin e (FLEXERIL) 10 mg tablet Take by mouth 2 (two) times a day as needed 09/17/19 23 Active dilTIAZem CD 240 mg 24 hr capsule Take 1 capsule (240 mg total) by mouth daily 09/27/19 23 Active BD Ultra-Fine Orig Pen Needle 29 gauge x 1/2 needle USE 1 PEN NEEDLE FOUR TIMES DAILY WITH INSULIN PEN Active insulin glargine (TOUJEO) 300 unit/mL (1.5 mL) pen for injection Inject 20 Units under the skin every morning 3 mL 10/29/19 23 Active Additional Information Patient taking differently: 24 Unitssubcutaneous Every morning, Reported on 09/12/2024 furosemide (LASIX) 40 mg tablet Take 1 tablet (40 mg total) by mouth every morning 01/25/20 23 Active metoprolol XL (TOPROL-XL) 100 mg 24 hr tablet Take 1 tablet (100 mg total) by mouth daily 01/14/20 23 Active dicyclomine (BENTYL) 20 mg tablet Take 1 tablet (20 mg total) by mouth 2 (two) times a day 05/25/19 24 Active lansoprazole (PREVACID) 30 mg capsule Take 1 capsule (30 mg total) by mouth 2 (two) times a day 05/25/19 24 Active busPIRone (BUSPAR) 5 mg tablet PLEASE SEE ATTACHED FOR DETAILED DIRECTIONS 08/12/19 24 Active empagliflozin (JARDIANCE) 25 mg tablet Take 1 tablet (25 mg total) by mouth daily 14 tablet 01/10/20 24 Active dulaglutide (Trulicity) 4.5 mg/0.5 mL pen injector Inject 0.5 mL (4.5 mg total) under the skin every 7 days 2 mL 3 01/11/20 24 Active blood-glucose meter miscIndication s:Type 2 diabetes mellitus with diabetic peripheral angiopathy with gangrene, unspecified whether roving technician insulin use (HCC) One touch Ultra Meter Check blood sugar twice daily Dx: E11.52 1 each 04/27/19 25 Active ALPRAZolam (XANAX) 0.5 mg tablet TAKE 1 TABLET BY MOUTH THE NIGHT BEFORE APPOINTMENT THEN 1 TABLET 1 HOUR BEFORE APPOINTMENT 03/31/20 24 Active benzonatate (TESSALON) 200 mg capsule TAKE 1 CAPSULE BY MOUTH THREE TIMES A DAY NEEDED FOR COUGH 04/12/19 25 Active chlorhexidine (PERIDEX) 0.12 % oral rinse RINSE MOUTH WITH 15ML (1 CAPFUL) FOR 30 SECONDS IN MORNING AND EVENING AFTER BRUSHING, THEN SPIT 03/21/[address] (NexIUM) 40 mg capsule Take 1 capsule (40 mg total) by mouth 2 (two) times a day 04/25/19 25 Active HYDROcodone-ac etaminophen (NORCO) 5-325 mg per tablet TAKE ONE TO TWO TABLET(S) BY MOUTH EVERY 4 TO 6 HOURS NEEDED FOR PAIN. MAX 8 TABS/DAY 03/06/20 24 Active TOUJEO 300 unit/mL (1.5 mL) pen for injection Inject 20 Units under the skin every morning 06/20/19 25 Active Additional Information Patient taking differently: 24 Unitssubcutaneous Every morning, Reported on 09/12/2024 ipratropium (ATROVENT) 0.02 % nebulizer solution INHALE 2.[address] OF NEBULIZER EVERY 6 HOURS NEEDED FOR SHORTNESS OF BREATH OR WHEEZING 07/11/19 25 Active traMADoL (ULTRAM) 50 mg tablet Take by mouth every 6 (six) hours as needed 07/05/19 25 Active albuterol 2.5 mg /3 mL (0.083 %) nebulizer solution INHALE 2.5 MG (3 ML) BY WAY OF NEBULIZER EVERY 6 HOURS NEEDED FOR SHORTNESS OF BREATH OR WHEEZING 07/11/19 25 Active dicyclomine (BENTYL) 10 mg capsule Take 1 capsule (10 mg total) by mouth 4 (four) times a day 06/27/19 25 Active blood glucose diagnostic stripIndicatio ns:Type 2 diabetes mellitus with diabetic peripheral angiopathy with gangrene, unspecified whether roving technician insulin use (HCC) One Touch Ultra Test Strips Check blood sugar four times daily daily Dx: E11.52 200 strip 11 09/18/19 25 Active blood glucose diagnostic stripIndicatio ns:Type 2 diabetes mellitus with diabetic peripheral angiopathy with gangrene, unspecified whether roving technician insulin use (HCC) One Touch Ultra Test Strips Check blood sugar twice daily Dx: E11.52 100 strip 11 04/27/19 25 025 Disconti nued(Reo rder) azithromycin (ZITHROMAX) 250 mg tablet TAKE 2 TABLETS BY MOUTH TODAY, THEN TAKE 1 TABLET DAILY FOR 4 DAYS DIRECTED 07/11/19 25 025 Disconti nued(Pat ient Reported ) doxycycline 100 mg tablet TAKE 1 TABLET BY MOUTH DAILY FOR 7 DAYS 07/11/19 25 025 Disconti nued(Pat ient Reported ) levoFLOXacin (LEVAQUIN) 500 mg tablet Take 1 tablet (500 mg total) by mouth daily 06/07/19 25 025 Disconti nued(Pat ient Reported ) Active Problems Problem Noted Date Diagnosed Date Hypertension associated with type 2 diabetes deedee litus 02/10/2023 Assessment & Plan (09/12/2024 9:27 AM CDT): Chronic problem. Elevated upon arrival today. Currently taking Lisinopril 40mg, metoprolol XL 100mg daily, diltiazem CD 240mg daily, triamterene-HCTZ 37.5-25mg. Assessment & Plan (05/14/2024 10:05 AM REALTY LOAN SPECIALIST): Chronic problem. Elevated upon arrival today. Currently taking Lisinopril 40mg, metoprolol XL 100mg daily, triamterene-HCTZ 37.5-25mg. Assessment & Plan (09/14/2023 10:10 AM CDT): Chronic problem, improved on recheck. Continue lisinopril, metoprolol, Maxzide, furosemide, diltiazem. Assessment & Plan (06/02/2023 12:31 PM REALTY LOAN SPECIALIST): Chronic, well-controlled. Continue lisinopril Assessment & Plan (02/10/2023 10:37 AM REALTY LOAN SPECIALIST): Chronic problem. Elevated upon arrival today. Currently taking Lisinopril 40mg, metoprolol XL 100mg daily, triamterene-HCTZ 37.5-25mg. Class 2 severe obesity due t o excess calories with serious comorbidity and body mass index (BMI) of 35.0 to 35.9 in adult 02/10/2023 Assessment & Plan (02/10/2023 3:18 PM REALTY LOAN SPECIALIST): Actively working on weight loss. Difficulty w/exercise d/t chronic back pain. Discussed healthy diet and importance of regular physical activity (20- 30min/day, 150min/wk). Hyperlipidemia associated with type 2 diabetes cal epstein 10/28/2022 Assessment & Plan (09/12/2024 9:26 AM CDT): Chronic problem. Near goal on current Atorvastatin 40mg & fenofibrate 135mg. Last lipid panel: 01/10/24 LDL=89, HP=577. Assessment & Plan (05/14/2024 10:04 AM REALTY LOAN SPECIALIST): Chronic problem. Near goal on current Atorvastatin 40mg & fenofibrate 135mg. Last lipid panel: 01/10/24 LDL=89, AN=272. Assessment & Plan (01/10/2024 1:15 PM CDT): Chronic, stable. Update lipid profile. Continue statin therapy with atorvastatin 40 mg daily Assessment & Plan (09/14/2023 10:10 AM CDT): Chronic problem. On statin therapy, no changes. Assessment & Plan (06/02/2023 12:31 PM REALTY LOAN SPECIALIST): Chronic, stable. Continue combination therapy of atorvastatin 40 mg daily with fenofibrate Diet and exercise advised Assessment & Plan (02/10/2023 10:38 AM REALTY LOAN SPECIALIST): Chronic problem. Near goal on current Atorvastatin 40mg & fenofibrate 135mg. Last lipid panel: 10/28/22 LDL=84, GT=064. 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 A1c at goal/stable today at 6.0%. no changes at this time. Current medications: Jardiance 25mg daily Metformin 1000mg twice daily Trulicity 4.5 mg weekly (PAP) Toujeo 15 units daily (PAP) Regular insulin 10 units for blood sugar over 200 (rarely uses) UTD on labs. UTD on DM eye exam (04/16/24 no DMR Rosemary Ty) Strive for regular exercise (30min most days) and diet (get at least 4-5 servings of fruit and veggies daily, avoid processed foods, increase lean protein intake and decrease carb portions as well as fruit juices, regular soda & desserts). Watch carbs and simple sugars. Check the blood sugar daily. Check the feet daily for skin breakdown and infection. Assessment & Plan (05/14/2024 10:27 AM REALTY LOAN SPECIALIST): Chronic problem. A1c at goal/stable today at [...] Trulicity. Assessment & Plan (06/02/2023 12:30 PM REALTY LOAN SPECIALIST): Chronic, well-controlled with risk of hypoglycemia Stop Toujeo Continue Jardiance 25 mg daily Continue Trulicity Patient to call if blood glucose persistently increased to over 150 Assessment & Plan (02/10/2023 11:13 AM REALTY LOAN SPECIALIST): Chronic problem. A1c at goal/stable today at 5.9%. Current medications: Jardiance 25mg daily Metformin 1000mg daily Trulicity 3mg weekly Toujeo 15 units daily Regular insulin 10 units for blood sugar over 150 (rarely uses) UTD on labs. DM eye exam completed at [facility]. Letter sent to get copy [...] Encounters Date Type Department Care Team Description 09/17/2024 Telephone [facility] [address] [place] [address] [phone] Kaitlynn Vivas NP Med Management (Test Strips) 09/13/2024 Results Follow-Up [facility] [address] [place] [address] [phone] Kaitlynn Vivas NP Urinalysis reflex to microscopic and culture Urine, clean voided, Urinalysis, microscopic only 09/12/2024 9:46 AM CDT - 09/12/2024 11:59 PM CDT Hospital Encounter [address] [address] Dysuria Discharge Disposition: Discharge to home or self care 09/12/2024 9:45 AM CDT Lab [facility] Outpatient Lab at [address] [phone] 09/12/2024 9:00 AM CDT Office Visit [facility] [address] [place] [address] [phone] Kaitlynn Vivas NP Type 2 diabetes mellitus with hyperglycemia, with long-term current use of insulin (HCC) (Primary Dx); Hypertension associated with type 2 diabetes mellitus (HCC); Hyperlipidemia associated with type 2 diabetes mellitus (HCC); Dysuria 09/12/2024 Orders Only [facility] [address] [place] [address] [phone] Cain Mendoza MD 09/07/2024 Telephone [facility] [address] [place] [address] [phone] Dania Escoto MD request to pcp for insurance referral from Last 3 Months Surgical History Surgery [...] on file Legal Sex Male 12:39 PM REALTY LOAN SPECIALIST Gender Identity Not on file Sexual Orientation Straight 01/10/2024 11 :32 AM CDT Obstetrics History Last Filed Vital Signs Vital Sign Reading Time Taken Comments Blood Pressure 136/72 09/12/2024 9:11 AM CDT Pulse 80 09/12/2024 9:11 AM CDT Temperature 36.2 C (97.1 F) 03/18/2020 9:01 AM REALTY LOAN SPECIALIST Respiratory Rate 18 09/12/2024 9:11 AM CDT Oxygen Saturation 96% 03/18/2020 9:01 AM REALTY LOAN SPECIALIST Inhaled Oxygen Concentration - - Weight 114.3 kg (252 lb) 09/12/2024 9:11 AM CDT Height 172.7 cm (5' 7.99) 09/12/2024 9:11 AM CD T Body Mass Index 38.33 09/12/2024 9:11 AM CDT Plan of Treatment Health Maintenance [...] 03/13/2021, 07/14/2020, Additional history exists Influenza Vaccine (Season Ended) 2024 Albumin Creatinine Ratio, Urine 01/09/2025 , 11/01/2022 Depression Screening 01/09/2025 01/10/2024, 01/10/20 24 Lipid Panel 01/09/2025 01/10/2024, 10/28/2022 eGFR 01/09/2025 01/10/2024, 10/28/2022 Hemoglobin A1C 03/14/2025 09/12/2024, 05/05, 01/10/2024, Additional history exists Dilated Eye Exam 04/16/2025 04/16/2024, 12/16/2022 Foot Exam 05/14/2025 05/14/2024, 02/10/2023 DTaP/Tdap/Td Vaccine (3 - Td or Tdap) 10/06/2031 10/05/2021, 09/30/2017 Procedures Procedure Name Priority Date/Time Associated Diagnosis Comments URINALYSIS, MICROSCOPIC ONLY Routine 09/12/2024 9:46 AM CDT Dysuria URINALYSIS AND REFLEX TO MICROSCOPIC AND CULTURE Routine 09/12/2024 9:46 AM CDT Dysuria POCT GLUCOSE Routine 09/12/2024 9:14 AM CDT Type 2 diabetes mellitus with hyperglycemia, with long-term current use of insulin (HCC) POCT HEMOGLOBIN A1C Routine 09/12/2024 9 :14 AM CDT Type 2 diabetes mellitus with hyperglycemia, with long-term current use of insulin (HCC) HM DIABETES EYE EXAM Routine 04/16/2024 9:12 AM REALTY LOAN SPECIALIST EGFR Routine 01/10/2024 12:21 PM CDT Type 2 diabetes mellitus with diabetic peripheral angiopathy with gangrene, unspecified whether roving technician insulin use (HCC) LIPID PANEL Routine 01/10/2024 12:21 PM CDT Type 2 diabetes mellitus with diabetic peripheral angiopathy with gangrene, unspecified whether fpc insulin use (HCC) ALBUMIN CREATININE RATIO, URINE Routine 01/10/2024 12:21 PM CDT Type 2 diabetes mellitus with diabetic peripheral angiopathy with gangrene, unspecified whether roving technician insulin use (HCC) from Last 3 Months or Most Recently Relevant to Health Maintenance Results * (ABNORMAL) Urinalysis reflex to microscopic and culture Urine, clean voided (09/12/2024 9:46 AM CDT) Color, ur Straw Yellow Clarity, ur Clear Clear [facility] Specific gravity, ur 1.008 1.003 - 1.030 CERNER CH pH, urine 6.5 [facility]ERNER [facility] Comment: Interpretive Data U rine pH is affected by diet, medications, systemic acid-base disturbances, and renal tubular function. pH may affect urinary stone formation. For example, urine pH below 6.0 may help reduce the tendency for calcium phosphate stones and pH greater than 6.0 may reduce the tendency for uric acid stone formation. Source: [employer] Current Interpretive Data was last revised on 2017 Protein, ur ql 1+(A) Negative CERNER [facility] Glucose, ur ql 3+(A) Negative [facility] Ketones, ur Negative Negative [facility] Bilirubin, ur Negative Negative [facility] Blood, ur Negative Negative [facility] Urobilinogen, ur <2.0 <2.0 mg/dL [facility] Nitrite, ur Negative Negative [facility] Leukocyte esterase, ur Negative Negative [facility] UA reflex comment Reflex to microscopic UA will be performed. [facility] Urine, clean voided 09/12/2024 9:46 AM CDT 09/12/2024 8:39 PM CDT us Kaitlynnmarisela Vivas SHORT ORDER COOK LAB MICROBIOLOGY - GENERA L ORDERABLES Final Result Performing Organization Address [facility]/ZIP Co de Phone Number [address] [place] [address] * Urinalysis, microscopic only (09/12/2024 9:46 AM CDT) WBC, ur 0-5 0 - 5 /HPF RBC, ur 0-2 0 - 2 /HPF [facility] Epithelial cells, squamous, ur 1-5 0 - 5 /HPF [facility] Culture Reflex Comment Reflex conditions for urine culture (WBC >10) not met. [facility] Urine, clean voided 09/12/2024 9:46 AM CDT 09/12/2024 8:39 PM CDT us Kaitlynnmarisela Vivas SHORT ORDER COOK LAB URINE ORDERABLES Jayne l Result Performing Organization Address [facility] Co de Phone Number [place] [address] [facility] [place] [address] * (ABNORMAL) POCT hemoglobin A1c (09/12/2024 9:14 AM CDT) Hemoglobin A1C, POC 6.0(A) 4.0 - 5.6 % Blood 09/12/2024 9:14 AM CDT us Kaitlynn Prisca Vivas NP POINT OF CARE TEST ORDERA BLES Final Result * (ABNORMAL) POCT glucose (09/12/2024 9:14 AM CDT) Glucose Blood, POC 151 Normal Fasting 70 - 100, Random <200 mg/dL Blood 09/12/2024 9:14 AM CDT us Kaitlynnmarisela Vivas NP POINT OF CARE TEST ORDERA BLES Final Result * DIABETES EYE EXAM (04/16/2024 9:12 AM REALTY LOAN SPECIALIST) Historical Provider HEALTH MAINTENANCE Final Result * [...] LAB BLOOD ORDERABLES Final Resul t [address] [facility] [place] [address] * (ABNORMAL) Albumin Creatinine Ratio, [...] URINE ORDERABLES Final Resul t [address] [address] [facility] [place] [address] * (ABNORMAL) Lipid panel (01/10/2024 12:21 PM [...] BLOOD ORDERABLES Final Resul t [address] [facility] [place] [address] from Last 3 Months or Most Recently Relevant to Health Maintenance Insurance [facility] Care Teams Full Charge Bookkeeper Relationship Specialty Start Date End Date Cain Mendoza MD [address] [address] PCP - General 02/03/11
--- OUTSIDE RECORDS SUMMARY | 2024-09-20 10:15 | XMS_ITS | Referral Summary ---
Author Organization [facility] [address] [facility] tt Address [address] [place] [address] Care Team Providers Care Charge Entry Specialist Name Role Phone Cain Mendoza MD Primary Care Provider [phone] Encounters Date Type Department Care Team Description 09/17/2024 Telephone [facility] Diabetes and Endocrinology [address] [place] [phone] Kaitlynn Vivas NP Med Management (Test Strips) 09/13/2024 Results Follow-Up [facility] Diabetes and Endocrinology [address] [place] [address] Kaitlynn Vivas NP Urinalysis reflex to microscopic and culture Urine, clean voided, Urinalysis, microscopic only 09/12/2024 9:46 AM CDT - 09/12/2024 11:59 PM CDT Hospital Encounter [address] [address] Dysuria Discharge Disposition: Discharge to home or self care 09/12/2024 9:45 AM CDT Lab [facility] Outpatient Lab at [address] [address] 09/12/2024 Orders Only [facility] Diabetes and Endocrinology [address] [place] [phone] Cain Mendoza MD 09/12/2024 9:00 AM CDT Office Visit [facility] Diabetes and Endocrinology [address] [place] [phone] Kaitlynn Vivas, HELGA Type 2 diabetes mellitus with hyperglycemia, with long-term current use of insulin (HCC) (Primary Dx); Hypertension associated with type 2 diabetes mellitus (HCC); Hyperlipidemia associated with type 2 diabetes mellitus (HCC); Dysuria 09/07/2024 Telephone [facility] Diabetes and Endocrinology [address] [place] [phone] Dania Escoto MD request to pcp for insurance referral from Last 3 Months Allergies Active Allergy [...] diabetic peripheral angiopathy with gangrene, unspecified whether shelter insulin use (HCC) One touch Ultra Meter [...] diabetic peripheral angiopathy with gangrene, unspecified whether meterman insulin use (HCC) One Touch Ultra Test Strips Check blood sugar four times daily daily Dx: E11.52 200 strip 09/18/19 25 Active blood glucose diagnostic stripIndicatio ns:Type 2 diabetes mellitus with diabetic peripheral angiopathy with gangrene, unspecified whether meterman insulin use (HCC) One Touch Ultra Test [...] (500 mg total) by mouth daily 06/07/19 025 Claudia streeter(Pat ient Reported ) Active Problems Problem Noted Date Diagnosed Date Hypertension associated with type 2 diabetes deedee burch 02/10/2023 Assessment & Plan (09/12/2024 9:27 AM CDT): Chronic problem. Elevated upon arrival today. Currently taking Lisinopril 40mg, metoprolol XL 100mg daily, diltiazem CD 240mg daily, triamterene-HCTZ 37.5-25mg. Assessment & Plan (05/14/2024 10:05 AM BLACK LEATHER TRIMMER): Chronic problem. Elevated upon arrival today. Currently taking Lisinopril 40mg, metoprolol XL 100mg daily, triamterene-HCTZ 37.5-25mg. Assessment & Plan (09/14/2023 10:10 AM CDT): Chronic problem, improved on recheck. Continue lisinopril, metoprolol, Maxzide, furosemide, diltiazem. Assessment & Plan (06/02/2023 12:31 PM BLACK LEATHER TRIMMER): Chronic, well-controlled. Continue lisinopril Assessment & Plan (02/10/2023 10:37 AM BLACK LEATHER TRIMMER): Chronic problem. Elevated upon arrival today. Currently taking Lisinopril 40mg, metoprolol XL 100mg daily, triamterene-HCTZ 37.5-25mg. Class 2 severe obesity due t o excess calories with serious comorbidity and body mass index (BMI) of 35.0 to 35.9 in adult 02/10/2023 Assessment & Plan (02/10/2023 3:18 PM BLACK LEATHER TRIMMER): Actively working on weight loss. Difficulty w/exercise d/t chronic back pain. Discussed healthy diet and importance of regular physical activity (20- 30min/day, 150min/wk). Hyperlipidemia associated with type 2 diabetes cal epstein 10/28/2022 Assessment & Plan (09/12/2024 9:26 AM CDT): Chronic problem. Near goal on current Atorvastatin 40mg & fenofibrate 135mg. Last lipid panel: 01/10/24 LDL=89, DU=733. Assessment & Plan (05/14/2024 10:04 AM BLACK LEATHER TRIMMER): Chronic problem. Near goal on current Atorvastatin 40mg & fenofibrate 135mg. Last lipid panel: 01/10/24 LDL=89, AZ=849. Assessment & Plan (01/10/2024 1:15 PM CDT): Chronic, stable. Update lipid profile. Continue statin therapy with atorvastatin 40 mg daily Assessment & Plan (09/14/2023 10:10 AM CDT): Chronic problem. On statin therapy, no changes. Assessment & Plan (06/02/2023 12:31 PM BLACK LEATHER TRIMMER): Chronic, stable. Continue combination therapy of atorvastatin 40 mg daily with fenofibrate Diet and exercise advised Assessment & Plan (02/10/2023 10:38 AM BLACK LEATHER TRIMMER): Chronic problem. Near goal on current Atorvastatin 40mg & fenofibrate 135mg. Last lipid panel: 10/28/22 LDL=84, FP=957. Assessment & Plan (10/28/2022 3:49 PM CDT): [...] bilateral 03/10/2017 [facility]PC current use of insulin 03/10/2017 Body mass [...] infection. Assessment & Plan (05/14/2024 10:27 AM BLACK LEATHER TRIMMER): Chronic problem. A1c at goal/stable today [...] Trulicity. Assessment & Plan (06/02/2023 12:30 PM BLACK LEATHER TRIMMER): Chronic, well-controlled with risk of hypoglycemia Stop Toujeo Continue Jardiance 25 mg daily Continue Trulicity Patient to call if blood glucose persistently increased to over 150 Assessment & Plan (02/10/2023 11:13 AM BLACK LEATHER TRIMMER): Chronic problem. A1c at goal/stable today at 5.9%. Current medications: Jardiance 25mg daily Metformin 1000mg daily Trulicity 3mg weekly Toujeo 15 units daily Regular insulin 10 units for blood sugar over 150 (rarely uses) UTD on labs. DM eye exam completed at [facility]. Letter sent to get copy of [...] on file Legal Sex Male 12:39 PM BLACK LEATHER TRIMMER Gender Identity Not on file Sexual Orientation Straight 01/10/2024 11 :32 AM CDT Last Filed Vital Signs Vital Sign Reading Time Taken Comments Blood Pressure 136/72 09/12/2024 9:11 AM CDT Pulse 80 09/12/2024 9:11 AM CDT Temperature 36.2 C (97.1 F) 03/18/2020 9:01 AM BLACK LEATHER TRIMMER Respiratory Rate 18 09/12/2024 9:11 AM CDT Oxygen Saturation 96% 03/18/2020 9:01 AM BLACK LEATHER TRIMMER Inhaled Oxygen Concentration - - Weight 114.3 kg (252 lb) 09/12/2024 9:11 AM CDT Height 172.7 cm (5' 7.99) 09/12/2024 9:11 AM CD T Body Mass Index 38.33 09/12/2024 9:11 AM CDT Plan of Treatment Not on [...] DIABETES EYE EXAM Routine 04/16/2024 9:12 AM BLACK LEATHER TRIMMER EGFR Routine 01/10/2024 12:21 PM CDT Type 2 diabetes mellitus with diabetic peripheral angiopathy with gangrene, unspecified whether meterman insulin use (HCC) LIPID PANEL Routine 01/10/2024 12:21 PM CDT Type 2 diabetes mellitus with diabetic peripheral angiopathy with gangrene, unspecified whether meterman insulin use (HCC) ALBUMIN CREATININE RATIO, URINE Routine 01/10/2024 12:21 PM CDT Type 2 diabetes mellitus with diabetic peripheral angiopathy with gangrene, unspecified whether shelter insulin use (HCC) from Last 3 Months [...] tendency for uric acid stone formation. Source: Mithridion Current Interpretive Data was last revised on 2017 Protein, ur ql 1+(A) Negative [facility] Glucose, ur ql 3+(A) Negative [facility] Ketones, ur Negative Negative [facility] Bilirubin, ur Negative Negative [facility] Blood, ur Negative Negative [facility] Urobilinogen, ur <2.0 <2.0 mg/dL [facility] Nitrite, ur Negative Negative [facility] Leukocyte esterase, ur Negative Negative [facility] UA reflex comment Reflex to microscopic UA will be performed. [facility] Urine, clean voided 09/12/2024 9:46 AM CDT 09/12/2024 8:39 PM CDT us Kaitlynnmarisela Vivas MARBLE INSTALLER LAB MICROBIOLOGY - GENERA L ORDERABLES Final Result Performing Organization Address [facility] Co de Phone Number [facility] [address] [address] [facility] [place] [address] * Urinalysis, microscopic only (09/12/2024 9:46 AM CDT) WBC, ur 0-5 0 - 5 /HPF RBC, ur 0-2 0 - 2 /HPF [facility] Epithelial cells, squamous, ur 1-5 0 - 5 /HPF [facility] Culture Reflex Comment Reflex conditions for urine culture (WBC >10) not met. [facility] Urine, clean voided 09/12/2024 9:46 AM CDT 09/12/2024 8:39 PM CDT us Kaitlynnmarisela Vivas NP LAB URINE ORDERABLES Jayne l Result Performing Organization Address [facility] Co de Phone Number [facility] [address] [place] [address] * (ABNORMAL) POCT hemoglobin A1c (09/12/2024 9:14 AM CDT) Hemoglobin A1C, POC 6.0(A) 4.0 - 5.6 % Blood 09/12/2024 9:14 AM CDT us Kaitlynnmarisela Vivas MARBLE INSTALLER POINT OF CARE TEST ORDERA BLES Final Result * (ABNORMAL) POCT glucose (09/12/2024 9:14 AM CDT) Glucose Blood, POC 151 Normal Fasting 70 - 100, Random <200 mg/dL Blood 09/12/2024 9:14 AM CDT us Kaitlynn Vivas NP POINT OF CARE TEST ORDERA BLES Final Result * DIABETES EYE EXAM (04/16/2024 9:12 AM BLACK LEATHER TRIMMER) Historical Provider HEALTH MAINTENANCE Final Result [...] of Race in Diagnosing Kidney Disease, JASN 202). The CKD-EPI equation should not be used for patients with unstable renal function and has not been validated in children and those over 70. Current interpretive data was last reviewed 2021. Blood 01/10/2024 12:2 1 PM CDT 01/10/2024 5:42 PM CDT us Dania Escoto MD LAB BLOOD ORDERABLES Final Resul t LEX [address] [place] [address] * (ABNORMAL) Albumin Creatinine Ratio, [...] MD LAB URINE ORDERABLES Final Resul t SÁNCHEZTIA [address] Department [place] [address] * (ABNORMAL) Lipid panel (01/10/2024 12:21 PM [...] BLOOD ORDERABLES Final Resul t LEX [place] [address] [address] [place] [address] from Last 3 Months or Most Recently Relevant to Health Maintenance Insurance [facility] Care Teams Charge Entry Specialist Relationship Specialty Start Date End Date Cain Mendoza MD [address] [place] [address] PCP - General 02/03/11
--- OUTSIDE RECORDS SUMMARY | 2024-09-20 10:16 | XMS_ITS | Clinical Summary ---
Author Organization [facility] Address [address] [place] [address] Care Team Providers Care Qa Software Test Engineer Name Role Phone Julio Puentes MD Primary Care Provider [phone] Source Comments [facility] Workshare,non-owned Affiliates and Associated Physician Practices is amultiple site organization consisting of ambulatory clinics and hospital sitesin [place], [place], [place] and [place]. This disclosure is being madepursuant to the Care Everywhere program and may not contain all information available regarding this patient. 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
--- OUTSIDE RECORDS SUMMARY | 2024-09-20 10:16 | XMS_ITS | Encounter Summary ---
Author Organization [facility] Address 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 [address] [place] [address] Lewis Stanley MD [address] [facility] [address] [place] [address] documented as of this encounter Visit Diagnoses Not on filedocumented in this encounter Care Teams Rug Shampooer Relationship Specialty Start Date End Date Cain Mendoza MD [facility] [place] [id number] PCP - General Family Practice 12/17/22 documented as of this encounter
--- OUTSIDE RECORDS SUMMARY | 2024-09-20 10:16 | XMS_ITS | Encounter Summary ---
Author Organization [facility] Address [address] [place] [address] Care Team Providers Care Technical Systems Architect Name Role Phone Cain Mendoza MD Primary Care Provider [phone] Encounter Details Date Type Department Care Team (Latest Contact Info) Description 03/06/2001 Outpatient Historical [facility] [address] 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 Gender Identity Not on file Sexual Orientation Not on file documented as of this encounter Plan of Treatment Upcoming Encounters Date Type Department Care Team (Late st Contact Info) Description 08/30/2025 8:30 AM CDT Office Visit [facility] Oncology and Hematology - [place] [address] [facility] [address] [place] [address] Lewis Stanley MD [address] [facility] [address] [place] [address] documented as of this encounter Visit Diagnoses Diagnosis Pain in limb- Primary documented in this encounter Care Teams Technical Systems Architect Relationship Specialty Start Date End Date Cain Mendoza MD [facility] [place] [address] PCP - General Family Practice 12/17/22 documented as of this encounter
--- OUTSIDE RECORDS SUMMARY | 2024-09-20 10:16 | XMS_ITS | Encounter Summary ---
Author Organization [facility] Care Team Providers Care Payable Manager Name Role Phone Cain Mendoza MD Primary Care Provider [phone] Encounter Details Date Type Department Care Team (Latest Contact Info) Description 10/06/2017 Orders Only [facility] ProviderOscar MD [address] [place] [address] Social History Tobacco Use Types Packs/Day Years Used Date Smoking Tobacco: Never Assessed Alcohol Use Standard Drinks/Week Comments No 0 (1 standard drink = 0.6 oz pur e alcohol) Sex and Gender Information Value Date Recorded Sex Assigned at Not on file 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
--- OUTSIDE RECORDS SUMMARY | 2024-09-20 10:16 | XMS_ITS | Clinical Summary ---
Author Organization [facility] Address [address] [place] [address] Phone Care Team Providers Care Drawer Liner Name Role Phone Julio Puentes MD Primary Care Provider [phone] Allergies Active Allergy Reactions Criticality Noted Date [...] 3 TIMES DAILY 0 Active UltiCare Pen [place] 29G X 12.7MM misc USE 1 PEN [...] 11:18 AM CDT Height 172.7 cm (5' 8) 02/03/2022 11:18 AM CDT Body Mass Index 39.38 02/03/2022 11:18 AM CDT Plan of Treatment Health Maintenance Due Date Last Done Comments Influenza Vaccine (Season Ended) 2024 Insurance [employer] H[employer] Care Teams Drawer Liner Relationship Specialty Start Date End Date Julio Peuntes MD [address] [place] [id number] PCP - General Family Medicine 10/02/18
--- OUTSIDE RECORDS SUMMARY | 2024-09-20 10:16 | XMS_ITS | Clinical Summary ---
Author Organization [facility] Address [address] [address] Care Team Providers Care University Relations Director Name Role Phone Cain Mendoza MD Primary Care Provider [phone] Allergies Active Allergy Reactions Criticality Noted Date [...] 9 Active fluticasone propionate (FLONASE) 50 mcg/spray [place], Suspension nasal inhaler Administer 1 [place] in each nostril. 9 Active ibuprofen (MOTRIN) [...] Take 100 mg by mouth. Active Insulin [place], Disposable, (UltiCare Pen Needle) 29 gauge x [...] Encounters Date Type Department Care Team Description 08/31/2024 Orders Only [facility] Oncology and Hematology - [place] [address] [place] [address] Lewis Stanley MD 08/24/2024 8:30 AM CDT Office Visit [facility] Oncology and Hematology - [place] [address] [place] [address] Lewis Stanley MD Erythrocytosis (Primary Dx) from Last 3 Months Family History Relation Name Status Comments Brother Father Mother Alive Sister Alive Social History Tobacco Use Types Packs/Day Years Used Date Smoking Tobacco: Former Cigarettes 2 25 0 08/04/1998 - 08/05/2023 Smokeless Tobacco: Never Tobacco Cessation:Counseling Given: Not Answered Alcohol Use Standard Drinks/Week Comments Never 0 (1 standard drink = 0.6 oz pur e alcohol) Sex and Gender Information Value Date Recorded Sex Assigned at Not on file 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 Gender Identity Not on file Sexual Orientation Not on file Last Filed Vital Signs Vital Sign Reading Time Taken Comments Blood Pressure 132/74 08/24/2024 8:36 AM CDT Pulse 67 08/24/2024 8:36 AM CDT Temperature 36.2 C (97.2 F) 08/24/2024 8:36 AM CDT Respiratory Rate 15 08/24/2024 8:36 AM CDT Oxygen Saturation 94% 08/24/2024 8:36 AM CDT Inhaled Oxygen Concentration - - Weight 114.1 kg (251 lb 9.6 oz) 08/24/2024 8:36 AM CDT Height 172.7 cm (5' 8) 10/19/2021 11:0 3 AM CDT Body Mass Index 38.26 10/19/2021 11:03 AM CDT Plan of Treatment Upcoming Encounters Date Type Department Care Team (Late st Contact Info) Description 08/30/2025 8:30 AM CDT Office Visit [facility] Oncology and Hematology - [place] [address] [facility] [address] [place] [address] Lewis Stanley MD [address] [facility] [address] [place] [address] Health Maintenance Due Date Last [...] series) 2023 INFLUENZA VACCINE (#1) 2023 DIABETES HBA1C Q 6 MONTHS 11/11/20242024, 09/14/2023, 06/02/2023, Additional history exists DIABETES ANNUAL FOOT EXAM 05/14/2025 05/14/2024 DTAP/TDAP/TD VACCINES (2 - T d or Tdap) 10/06/2031 10/05/2021 Procedures Procedure Name Priority Date/Time Associated Diagnosis Comments CBC WITH DIFFERENTIAL Routine 08/24/2024 4:41 PM CDT BASIC METABOLIC PANEL Routine 08/24/2024 4:37 PM CDT from Last 3 Months Results * CBC WITH DIFFERENTIAL (08/24/2024 4:41 PM CDT) Blood us Lewis Stanley MD HEMATOLOGY ORDERABLES Final Res ult * BASIC METABOLIC PANEL (08/24/2024 4:37 PM CDT) Blood us Lewis Stanley MD CHEMISTRY ORDERABLES Final Resu lt from Last 3 Months Insurance [facility] Care Teams University Relations Director Relationship Specialty Start Date End Date Cain Mendoza MD [facility] [place] [address] PCP - General Family Practice 12/17/22
--- OUTSIDE RECORDS SUMMARY | 2024-09-20 10:16 | XMS_ITS | Encounter Summary ---
Author Organization [facility] Address [address] [place] [address] Care Team Providers Care Welt Sewer Name Role Phone Cain Mendoza MD Primary Care Provider [phone] Reason for Visit * Reason Comments Medication Refill Encounter Details Date Type Department Care Team (Late Contact Info) Description 12/01/2012 Refill [facility] [place] [address] [address] [facility] [address] [place] [address] Madeline Talley MD [address] [place] [address] Social History Tobacco Use Types Packs/Day Years Used Date Smoking Tobacco: Never Assessed Sex and Gender Information Value Date Recorded Sex Assigned at Not on file 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 Gender Identity Not on file Sexual Orientation Not on file documented as of this encounter Miscellaneous Notes * Telephone Encounter - Rachell Russell - 12/02/2012 8:41 AM CDT Not our pt documented in this encounter Plan of Treatment Upcoming Encounters Date Type Department Care Team (Late st Contact Info) Description 08/30/2025 8:30 AM CDT Office Visit [facility] Oncology and Hematology - [place] [address] [facility] [address] [place] [address] Lewis Stanley MD [address] [facility] [address] [place] [address] documented as of this encounter Visit Diagnoses Not on filedocumented in this encounter Care Teams Welt Sewer Relationship Specialty Start Date End Date Cain Mendoza MD [address] [place] [address] PCP - General Family Practice 12/17/22 documented as of this encounter
--- OUTSIDE RECORDS SUMMARY | 2024-09-20 10:16 | XMS_ITS | Continuity of Care Document ---
Author Organization [facility] Address [address] [place] [address] Phone Care Team Providers Care Assistant Professor Of Anthropology Name Role Phone Yuriy Gonzales DO Unavailable Unavailable Advance Directives Directive Yes / No Effective Date File Name No Information Encounters Encounter Description Practice Location Reason(s) For Visit Diagnoses Date Provider Providers Copied on Encounter [facility], [address], [place], [place], [id number], [place] tel:[phone] [facility] No Information Christian Plummer. [address] [facility], [place], [address], [place]. tel:[phone] Family History Family Member Type Diagnosis Age [...]
--- OUTSIDE RECORDS SUMMARY | 2024-09-20 10:16 | XMS_ITS | Encounter Summary ---
Author Organization [facility] Healthcare Address [address] [place] [address] Care Team Providers Care Car Repairer Pullman Name Role Phone Cain Mendoza MD Primary Care Provider [phone] Encounter Details Date Type Department Care Team (Late st Contact Info) Description 09/13/2024 Results Follow-Up [facility] Medical Group Diabetes and Endocrinology [address] [place] [address] Kaitlynn Vivas, DRYWALL BOARDHANGER [address] [facility] [address] [place] [address] Urinalysis reflex to microscopic and culture Urine, clean voided, Urinalysis, microscopic only Social History Tobacco Use Types Packs/Day Years [...] on file 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 Pt denies any questions or concerns at this time. * Result Encounter Note - Kaitlynn Vivas NP - 09/13/2024 10:06 AM CDT Please call him to let him know that he does not have UTI. Have him continue to stay well hydrated. documented in this encounter Plan of Treatment Not on file documented as of this encounter Visit Diagnoses Not on filedocumented in this encounter Care Teams Car Repairer Pullman Relationship Specialty Start Date End Date Cain Mendoza MD [address] [address] PCP - General 02/03/11 documented as of this encounter
--- OUTSIDE RECORDS SUMMARY | 2024-09-20 10:16 | XMS_ITS | Clinical Summary ---
Author Organization [facility] Address [address] [place] [address] Phone Care Team Providers Care Bakery Helper Name Role Phone Jabier Acosta Primary Care Provider [phone] Allergies Active Allergy Reactions Criticality Noted Date [...] 11:04 AM CDT Height 174 cm (5' 8.5) 10/05/2021 11:04 AM CDT Body Mass Index 37.31 10/05/2021 11:04 AM CDT Plan of Treatment Not on file Insurance MEDICARE C [employer] Care Teams Bakery Helper Relationship Specialty Start Date End Date Jabier Acosta DO [address] [facility] [address] [place] [address] PCP - General Internal Medicine 10/05/21
--- OUTSIDE RECORDS SUMMARY | 2024-09-20 10:16 | XMS_ITS | Encounter Summary ---
Author Organization [facility] Address 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 Gender Identity Not on file Sexual Orientation Not on file documented as of this encounter Plan of Treatment Upcoming Encounters Date Type Department Care Team (Late st Contact Info) Description 08/30/2025 8:30 AM CDT Office Visit [facility] Oncology and Hematology - [place] [address] [facility] [address] [place] [address] Lewis Stanley MD [address] [facility] [address] [place] [address] documented as of this encounter Visit Diagnoses Not on filedocumented in this encounter Care Teams Tip Length Checker Relationship Specialty Start Date End Date Cain Mendoza MD [facility] [place] [phone] PCP - General Family Practice 12/17/22 documented as of this encounter
--- OUTSIDE RECORDS SUMMARY | 2024-09-20 10:16 | XMS_ITS | Encounter Summary ---
Author Organization [facility] Address 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 Gender Identity Not on file Sexual Orientation Not on file documented as of this encounter Plan of Treatment Upcoming Encounters Date Type Department Care Team (Late st Contact Info) Description 08/30/2025 8:30 AM CDT Office Visit [facility] Oncology and Hematology - [place] [address] [facility] [address] [place] [address] Lewis Stanley MD [address] [facility] [address] [place] [address] documented as of this encounter Visit Diagnoses Not on filedocumented in this encounter Care Teams Geodetic Engineer Relationship Specialty Start Date End Date Cain Mendoza MD [address] [place] [phone] PCP - General Family Practice 12/17/22 documented as of this encounter
--- OUTSIDE RECORDS SUMMARY | 2024-09-20 10:16 | XMS_ITS | Encounter Summary ---
Author Organization [facility] Address 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 Gender Identity Not on file Sexual Orientation Not on file documented as of this encounter Plan of Treatment Upcoming Encounters Date Type Department Care Team (Late st Contact Info) Description 08/30/2025 8:30 AM CDT Office Visit [facility] Oncology and Hematology - [place] [address] [facility] [address] [place] [address] Lewis Stanley MD [address] [facility] [address] [place] [address] documented as of this encounter Visit Diagnoses Not on filedocumented in this encounter Care Teams Assistant Merchandise Manager Relationship Specialty Start Date End Date Cain Mendoza MD [address] [place] [phone] PCP - General Family Practice 12/17/22 documented as of this encounter
== END 2024-09-20 09:46 | disposition home or self-care (01) ==
PROVIDERS: PCP Family Medicine; Visit Provider Nurse Practitioner Family
DX: Z12.2 Encounter for screening for malignant neoplasm of respiratory organs (principal); Z87.891 Personal history of nicotine dependence; R91.1 Solitary pulmonary nodule
CPT/HCPCS: 71271

== ENCOUNTER 2024-10-08 00:50 | Day surgery (SDC) | payer OTHER, SELFPAY ==
[2024-10-04 10:28] VITALS: BMI 36.6
[2024-10-08] VITALS (8 sets, daily range): BP systolic 132–180; BP diastolic 65–75; PULSE 70–90; RESP 15–25; TEMP 36.6; O2SAT 96–100; BMI 36.6
--- OUTSIDE RECORDS SUMMARY | 2024-10-08 00:55 | XMS_ITS | Clinical Summary ---
Author Organization [facility] Address [address] [place] [address] Care Team Providers Care Expansion Joint Finisher Name Role Phone Julio Puentes MD Primary Care Provider [phone] Source Comments [facility],non-owned Affiliates and Associated Physician Practices is amultiple site organization consisting of ambulatory clinics and hospital sitesin [place], [place], [place] and [place]. This disclosure is being madepursuant to the Care Everywhere program and may not contain all information available regarding this patient. Last updated 17.[facility] Social History Tobacco Use Types Packs/Day Years Used Date Smoking Tobacco: Never Assessed Sex and Gender Information Value Date Recorded Sex Assigned at Not on file Legal Sex Male 11:43 AM COMPARISON SHOPPER Gender Identity Not on file Sexual Orientation [...] season) 2023 DEPRESSION SCREENING 04/04/2024 INFLUENZA VACCINE (#1) 2024 Respiratory Syncytial Virus (RSV) Vaccine Pt: [...] to complete this topic Insurance [employer] MEDICARE [facility] Care Address: [address] [address] [address] [place] [address] [facility] MEDICARE SELF PAY NO INSURANCE Member Subscriber Plan / Payer (Ef fective for All Dates) Name:Cari Lam Jr. Member ID:Not on file Relation to Subscriber:Not on file Name:CARI LAM Subscriber ID:Not on file (Home) Address: [address] [place] [address] Payer ID:Not on file Group ID:Not on file Type:Self Pay Address: [place], [place] Care Teams Expansion Joint Finisher Relationship Specialty Start Date End Date Julio Puentes MD [address] [place] [address] PCP - General Internal Medicine 02/23/19
--- OUTSIDE RECORDS SUMMARY | 2024-10-08 00:55 | XMS_ITS | Encounter Summary ---
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
--- OUTSIDE RECORDS SUMMARY | 2024-10-08 00:55 | XMS_ITS | Encounter Summary ---
Author Organization [facility] Address 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 Gender Identity Not on file Sexual Orientation Not on file documented as of this encounter Plan of Treatment Upcoming Encounters Date Type Department Care Team (Late st Contact Info) Description 08/30/2025 8:30 AM CDT Office Visit [facility] Oncology and Hematology - [place] [address] [facility] [address] [place] [address] Lewis Stanley MD [address] [facility] [address] [place] [address] documented as of this encounter Visit Diagnoses Diagnosis Pain in limb- Primary documented in this encounter Care Teams Customs Broker Relationship Specialty Start Date End Date Cain Mendoza MD [facility] [place] [address] PCP - General Family Practice 12/17/22 documented as of this encounter
--- OUTSIDE RECORDS SUMMARY | 2024-10-08 00:55 | XMS_ITS | Encounter Summary ---
Author Organization [facility] Care Team Providers Care Churn Operator Name Role Phone Cain Mendoza MD Primary Care Provider [phone] Encounter Details Date Type Department Care Team (Latest Contact Info) Description 10/06/2017 Orders Only [facility] ProviderOscar MD [address] [place] [address] Social History Tobacco Use Types Packs/Day Years Used Date Smoking Tobacco: Never Assessed Alcohol Use Standard Drinks/Week Comments No 0 (1 standard drink = 0.6 oz pur e alcohol) Sex and Gender Information Value Date Recorded Sex Assigned at Not on file Legal 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
--- OUTSIDE RECORDS SUMMARY | 2024-10-08 00:55 | XMS_ITS | Encounter Summary ---
Author Organization [facility] Address [address] [place] [address] Care Team Providers Care Metallurgical Specialist Name Role Phone Cain Mendoza MD Primary Care Provider [phone] Reason for Visit * Reason Comments Medication Refill Encounter Details Date Type Department Care Team (Late Contact Info) Description 12/01/2012 Refill [facility] [place] [address] [facility] [address] [place] [address] Madeline Talley MD [address] [place] [address] Social History Tobacco Use Types Packs/Day Years Used Date Smoking Tobacco: Never Assessed Sex and Gender Information Value Date Recorded Sex Assigned at Not on file Legal 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 Male 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 Gender Identity Not on file Sexual Orientation Not on file documented as of this encounter Miscellaneous Notes * Telephone Encounter - Rachell Russell - 12/02/2012 8:41 AM CDT Not our pt documented in this encounter Plan of Treatment Upcoming Encounters Date Type Department Care Team (Late st Contact Info) Description 08/30/2025 8:30 AM CDT Office Visit [facility] Oncology and Hematology - [place] [address] [facility] [address] [place] [address] Lewis Stanley MD [address] [facility] [address] [place] [address] documented as of this encounter Visit Diagnoses Not on filedocumented in this encounter Care Teams Metallurgical Specialist Relationship Specialty Start Date End Date Cain Mendoza MD [address] [place] [address] PCP - General Family Practice 12/17/22 documented as of this encounter
--- OUTSIDE RECORDS SUMMARY | 2024-10-08 00:55 | XMS_ITS | Clinical Summary ---
Author Organization [facility] Address [address] [address] Care Team Providers Care Precision Assembly Inspector Name Role Phone Cain Mendoza MD Primary Care Provider [phone] Allergies Active Allergy Reactions Criticality Noted Date [...] 9 Active fluticasone propionate (FLONASE) 50 mcg/spray [place], Suspension nasal inhaler Administer 1 Carlton in each nostril. 9 Active ibuprofen (MOTRIN) [...] Take 100 mg by mouth. 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 Gender Identity Not on file Sexual Orientation [...] Description 08/30/2025 8:30 AM CDT Office Visit [facility] Oncology and Hematology - [place] [address] [facility] [address] [place] [address] Lewis Stanley MD [address] [facility] [address] [place] [address] Health Maintenance Due Date Last [...] years 1-dose series) 2023 INFLUENZA VACCINE (#1) 2024 DIABETES HBA1C Q 6 MONTHS 11/11/20242024, 09/14/2023, [...] Resu lt from Last 3 Months Insurance [facility] Address: [place] [address] [facility] Care Teams Precision Assembly Inspector Relationship Specialty Start Date End Date Cain Mendoza MD [facility] [place] [address] PCP - General Family Practice 12/17/22
--- OUTSIDE RECORDS SUMMARY | 2024-10-08 00:55 | XMS_ITS | Encounter Summary ---
Author Organization [facility] Address 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 Gender Identity Not on file Sexual Orientation Not on file documented as of this encounter Plan of Treatment Upcoming Encounters Date Type Department Care Team (Late st Contact Info) Description 08/30/2025 8:30 AM CDT Office Visit [facility] Oncology and Hematology - [place] [address] [facility] [address] [place] [address] Lewis Stanley MD [address] [facility] [address] [place] [address] documented as of this encounter Visit Diagnoses Not on filedocumented in this encounter Care Teams Human Resources Operations Specialist Relationship Specialty Start Date End Date Cain Mendoza MD [facility] [place] [phone] PCP - General Family Practice 12/17/22 documented as of this encounter
--- OUTSIDE RECORDS SUMMARY | 2024-10-08 00:55 | XMS_ITS | Clinical Summary ---
Author Organization [facility] Address [address] [place] [address] Phone Care Team Providers Care Greens Picker Name Role Phone Julio Puentes MD Primary Care Provider [phone] Allergies Active Allergy Reactions Criticality Noted Date [...] 3 TIMES DAILY 0 Active UltiCare Pen [place] 29G X 12.7MM misc USE 1 PEN [...] Due Date Last Done Comments Influenza Vaccine (#1) 2024 Insurance [employer] MEDICARE HMO Care Teams Greens Picker Relationship Specialty Start Date End Date Julio Puentes MD [address] [place] [phone] PCP - General Family Medicine 10/02/18
--- OUTSIDE RECORDS SUMMARY | 2024-10-08 00:55 | XMS_ITS | Clinical Summary ---
Author Organization [facility] Address [address] [place] [address] Phone Care Team Providers Care Clerical Aide Name Role Phone Jabier Acosta Primary Care Provider [phone] Allergies Active Allergy Reactions Criticality Noted Date [...] Not on file Insurance MEDICARE [place] [place] [id number] Care Teams Clerical Aide Relationship Specialty Start Date End Date Jabier Acosta DO [address] [facility] [address] [place] [address] PCP - General Internal Medicine 10/05/21
--- OUTSIDE RECORDS SUMMARY | 2024-10-08 00:55 | XMS_ITS | Referral Summary ---
Author Organization [facility] [address] Address [address] [place] [address] Care Team Providers Care Director Health Name Role Phone Cain Mendoza MD Primary Care Provider [phone] Encounters Date Type Department Care Team Description 09/27/2024 Telephone [facility] Cardiology [address] [place] [address] Aquiles Little MD 09/26/2024 Telephone [facility] Diabetes and Endocrinology [address] [place] [phone] Kaitlynn Vivas, ATMOSPHERIC PHYSICS PROFESSOR Med Management (Toujeo); [employer] Toujeo arrived 09/17/2024 Telephone [facility] Diabetes and Endocrinology [address] [place] [phone] Kaitlynn Vivas, HELGA Med Management (Test Strips) 09/13/2024 Results Follow-Up [facility] Diabetes and Endocrinology [address] [place] [phone] Kaitlynn Vivas, ATMOSPHERIC PHYSICS PROFESSOR Urinalysis reflex to microscopic and culture Urine, clean voided, Urinalysis, microscopic only 09/12/2024 9:46 AM CDT - 09/12/2024 11:59 PM CDT Hospital Encounter [address] [address] Dysuria Discharge Disposition: Discharge to home or self care 09/12/2024 9:45 AM CDT Lab [facility] Outpatient Lab at [address] [phone] 09/12/[address] [facility] Medical [facility] Diabetes and Endocrinology [address] [place] [phone] Cain Mendoza MD 09/12/2024 9:00 AM CDT Office Visit [facility] Medical [facility] Diabetes and Endocrinology [address] [place] [phone] Kaitlynn Vivas, HELGA Type 2 diabetes mellitus with hyperglycemia, with long-term current use of insulin (HCC) (Primary Dx); Hypertension associated with type 2 diabetes mellitus (HCC); Hyperlipidemia associated with type 2 diabetes mellitus (HCC); Dysuria 09/07/[address] [facility] Medical [facility] Diabetes and Endocrinology [address] [place] [phone] Dania Escoto MD request to pcp for [...] (TRILIPIX) 135 mg capsule 9 Active lisinopril (PRINIVIL,ZESTR IL) 40 mg tablet 9 Active metFORMIN (GLUCOPHAGE) 1,000 mg tablet Take 1 tablet (1,000 mg total) by mouth 2 (two) times a day with meals Active SURE COMFORT INSULIN SYRINGE 1 mL 29 gauge x 1/2 syringe 9 Active TRIAMTERENE-HYD ROCHLOROTHIAZID E 37.5-25 mg per tablet 9 Active fluticasone propionate (FLONASE) 50 mcg/actuation nasal sprayIndication s:Chronic seasonal allergic rhinitis Administer 1 spray into [...] FOUR TIMES DAILY WITH INSULIN PEN Active furosemide (LASIX) 40 mg tablet Take [...] 7 days 2 mL 3 4 Active blood-glucose meter miscIndications :Type 2 diabetes mellitus with diabetic peripheral angiopathy with gangrene, unspecified whether terminal system operator insulin use (HCC) One touch Ultra [...] 2 (two) times a day 5 Active HYDROcodone-claudia taminophen (NORCO) 5-325 mg per tablet TAKE ONE TO TWO TABLET(S) BY MOUTH EVERY 4 TO 6 HOURS NEEDED FOR PAIN. MAX 8 TABS/DAY 4 Active ipratropium (ATROVENT) 0.02 % nebulizer solution INHALE 2.[address] OF NEBULIZER EVERY 6 HOURS NEEDED FOR SHORTNESS OF BREATH OR WHEEZING 5 Active traMADoL (ULTRAM) 50 mg tablet Take by mouth every 6 (six) hours as needed 5 Active albuterol 2.5 mg /3 mL (0.083 %) nebulizer solution INHALE 2.5 MG (3 ML) BY WAY OF NEBULIZER EVERY 6 HOURS NEEDED FOR SHORTNESS OF BREATH OR WHEEZING 5 Active dicyclomine (BENTYL) 10 mg capsule Take 1 capsule (10 mg total) by mouth 4 (four) times a day 5 Active blood glucose diagnostic stripIndication s:Type 2 diabetes mellitus with diabetic peripheral angiopathy with gangrene, unspecified whether long-term insulin use (HCC) One Touch Ultra Test Strips Check blood sugar four times daily daily Dx: E11.52 200 strip 11 5 Active TOUJEO 300 unit/mL (1.5 mL) pen for injection Inject 24 Units under the skin every morning 9 mL 5 Active insulin glargine (TOUJEO) 300 unit/mL (1.5 mL) pen for injection Inject 20 Units under the skin every morning 3 mL 3 025 Discontin ued(Alter shonda therapy) blood glucose diagnostic stripIndication s:Type 2 diabetes mellitus with diabetic peripheral angiopathy with gangrene, unspecified whether long-term insulin use (HCC) One Touch Ultra Test Strips Check blood sugar twice daily Dx: E11.52 100 strip 11 5 025 Discontin ued(Reord er) TOUJEO 300 unit/mL (1.5 mL) pen for injection Inject 20 Units under the skin every morning 5 025 Discontin ued(Alter shonda therapy) azithromycin (ZITHROMAX) 250 mg tablet TAKE 2 TABLETS BY MOUTH TODAY, THEN TAKE 1 TABLET DAILY FOR 4 DAYS DIRECTED 5 025 Discontin ued(Patie nt Reported) doxycycline 100 mg tablet TAKE 1 TABLET BY MOUTH DAILY FOR 7 DAYS 5 025 Discontin ued(Patie nt Reported) levoFLOXacin (LEVAQUIN) 500 mg tablet Take 1 tablet (500 mg total) by mouth daily 5 025 Discontin ued(Patie nt Reported) Active Problems Problem Noted Date Diagnosed Date Hypertension associated with type 2 diabetes deedee litus 02/10/2023 Assessment & Plan (09/12/2024 9:27 AM CDT): Chronic problem. Elevated upon arrival today. Currently taking Lisinopril 40mg, metoprolol XL 100mg daily, diltiazem CD 240mg daily, triamterene-HCTZ 37.5-25mg. Assessment & Plan (05/14/2024 10:05 AM LINING MAKER HAND): Chronic problem. Elevated upon arrival today. Currently taking Lisinopril 40mg, metoprolol XL 100mg daily, triamterene-HCTZ 37.5-25mg. Assessment & Plan (09/14/2023 10:10 AM CDT): Chronic problem, improved on recheck. Continue lisinopril, metoprolol, Maxzide, furosemide, diltiazem. Assessment & Plan (06/02/2023 12:31 PM LINING MAKER HAND): Chronic, well-controlled. Continue lisinopril Assessment & Plan (02/10/2023 10:37 AM LINING MAKER HAND): Chronic problem. Elevated upon arrival today. Currently taking Lisinopril 40mg, metoprolol XL 100mg daily, triamterene-HCTZ 37.5-25mg. Class 2 severe obesity due t o excess calories with serious comorbidity and body mass index (BMI) of 35.0 to 35.9 in adult 02/10/2023 Assessment & Plan (02/10/2023 3:18 PM LINING MAKER HAND): Actively working on weight loss. Difficulty w/exercise d/t chronic back pain. Discussed healthy diet and importance of regular physical activity (20- 30min/day, 150min/wk). Hyperlipidemia associated with type 2 diabetes cal epstein 10/28/2022 Assessment & Plan (09/12/2024 9:26 AM CDT): Chronic problem. Near goal on current Atorvastatin 40mg & fenofibrate 135mg. Last lipid panel: 01/10/24 LDL=89, RO=116. Assessment & Plan (05/14/2024 10:04 AM LINING MAKER HAND): Chronic problem. Near goal on current Atorvastatin 40mg & fenofibrate 135mg. Last lipid panel: 01/10/24 LDL=89, LE=938. Assessment & Plan (01/10/2024 1:15 PM CDT): Chronic, stable. Update lipid profile. Continue statin therapy with atorvastatin 40 mg daily Assessment & Plan (09/14/2023 10:10 AM CDT): Chronic problem. On statin therapy, no changes. Assessment & Plan (06/02/2023 12:31 PM LINING MAKER HAND): Chronic, stable. Continue combination therapy of atorvastatin 40 mg daily with fenofibrate Diet and exercise advised Assessment & Plan (02/10/2023 10:38 AM LINING MAKER HAND): Chronic problem. Near goal on current Atorvastatin 40mg & fenofibrate 135mg. Last lipid panel: 10/28/22 LDL=84, FX=694. Assessment & Plan (10/28/2022 3:49 PM CDT): LDL goal under 80 Update lipid profile Continue atorvastatin 40 mg daily Persistent proteinuria 10/02/2018 Chronic mastoiditis, right ear 01/25/2018 Conductive hearing loss of l eft ear with unrestricted hearing of right ear 10/06/2017 Chronic allergic rhinitis due to pollen 10/07/19 18 Morbid (severe) obesity due to excess calories 1 05/11/2016 Mixed hearing loss, bilateral 03/10/2017 terminal system operator current use of insulin 03/10/2017 Body [...] infection. Assessment & Plan (05/14/2024 10:27 AM LINING MAKER HAND): Chronic problem. A1c at goal/stable today at [...] Trulicity. Assessment & Plan (06/02/2023 12:30 PM LINING MAKER HAND): Chronic, well-controlled with risk of hypoglycemia Stop Toujeo Continue Jardiance 25 mg daily Continue Trulicity Patient to call if blood glucose persistently increased to over 150 Assessment & Plan (02/10/2023 11:13 AM LINING MAKER HAND): Chronic problem. A1c at goal/stable today at 5.9%. Current medications: Jardiance 25mg daily Metformin 1000mg daily Trulicity 3mg weekly Toujeo 15 units daily Regular insulin 10 units for blood sugar over 150 (rarely uses) UTD on labs. DM eye exam completed -12/2022 at [facility]. Letter sent to get copy of report. [...] on file Legal Sex Male 12:39 PM LINING MAKER HAND Gender Identity Not on file Sexual Orientation Straight 01/10/2024 11 :32 AM CDT Last Filed Vital Signs Vital Sign Reading Time Taken Comments Blood Pressure 136/72 09/12/2024 9:11 AM CDT Pulse 80 09/12/2024 9:11 AM CDT Temperature 36.2 C (97.1 F) 03/18/2020 9:01 AM LINING MAKER HAND Respiratory Rate 18 09/12/2024 9:11 AM CDT Oxygen Saturation 96% 03/18/2020 9:01 AM LINING MAKER HAND Inhaled Oxygen Concentration - - Weight 114.3 [...] DIABETES EYE EXAM Routine 04/16/2024 9:12 AM LINING MAKER HAND EGFR Routine 01/10/2024 12:21 PM CDT Type 2 diabetes mellitus with diabetic peripheral angiopathy with gangrene, unspecified whether terminal system operator insulin use (HCC) LIPID PANEL Routine 01/10/2024 12:21 PM CDT Type 2 diabetes mellitus with diabetic peripheral angiopathy with gangrene, unspecified whether terminal system operator insulin use (HCC) ALBUMIN CREATININE RATIO, URINE Routine 01/10/2024 12:21 PM CDT Type 2 diabetes mellitus with diabetic peripheral angiopathy with gangrene, unspecified whether long-term insulin use (HCC) from Last 3 Months or Most Recently Relevant to Health Maintenance Results * (ABNORMAL) Urinalysis reflex to microscopic and culture Urine, clean voided (09/12/2024 9:46 AM CDT) Color, ur Straw Yellow Clarity, ur Clear Clear CERNER Specific gravity, ur 1.008 1.003 - 1.030 CERNER pH, urine 6.5 CERNER Comment: Interpretive Data U rine pH is affected by diet, medications, systemic acid-base disturbances, and renal tubular function. pH may affect urinary stone formation. For example, urine pH below 6.0 may help reduce the tendency for calcium phosphate stones and pH greater than 6.0 may reduce the tendency for uric acid stone formation. Source: [facility] Current Interpretive Data was last revised on [...] Reflex to microscopic UA will be performed. [facility] Urine, clean voided 09/12/2024 9:46 AM CDT 09/12/2024 8:39 PM CDT us Kaitlynnmarisela Vivas ATMOSPHERIC PHYSICS PROFESSOR LAB MICROBIOLOGY - GENERA L ORDERABLES Final Result Performing Organization Address [facility] Co de Phone Number LEX [address] [address] [place] [address] * Urinalysis, microscopic only (09/12/2024 9:46 AM CDT) WBC, ur 0-5 0 - 5 /HPF RBC, ur 0-2 0 - 2 /HPF [facility] Epithelial cells, squamous, ur 1-5 0 - 5 /HPF [facility] Culture Reflex Comment Reflex conditions for urine culture (WBC >10) not met. [facility] Urine, clean voided 09/12/2024 9:46 AM CDT 09/12/2024 8:39 PM CDT us Kaitlynn Vivas NP LAB URINE ORDERABLES Jayne l Result Performing Organization Address [facility] Co de Phone Number [facility] [address] [address] [facility] [employer] [place], [place] [id number] * (ABNORMAL) POCT hemoglobin A1c (09/12/2024 9:14 AM CDT) Hemoglobin A1C, POC 6.0(A) 4.0 - 5.6 % Blood 09/12/2024 9:14 AM CDT Kaitlynn Vivas ATMOSPHERIC PHYSICS PROFESSOR POINT OF CARE TEST ORDERA BLES Final Result * (ABNORMAL) POCT glucose (09/12/2024 9:14 AM CDT) Glucose Blood, POC 151 Normal Fasting 70 - 100, Random <200 mg/dL Blood 09/12/2024 9:14 AM CDT us Kaitlynn Vivas ATMOSPHERIC PHYSICS PROFESSOR POINT OF CARE TEST ORDERA BLES Final Result * HM DIABETES EYE EXAM (04/16/2024 9:12 AM LINING MAKER HAND) us Oscar De La Fuente MD HEALTH MAINTENANCE [...] ORDERABLES Final Resul t Performing Organization Address [facility] de Phone Number [facility] [address] [address] Department of [place] [address] * (ABNORMAL) Albumin Creatinine Ratio, Urine (01/10/2024 [...] ORDERABLES Final Resul t Performing Organization Address [facility] de Phone Number LEX [address] [address] [employer] [place] [address] * (ABNORMAL) Lipid panel (01/10/2024 12:21 PM [...] BLOOD ORDERABLES Final Resul t [place]EX [place] [address] [address] Department [place] [address] from Last 3 Months or Most Recently Relevant to Health Maintenance Insurance [facility] Care Teams Director Health Relationship Specialty Start Date End Date Cain Mendoza MD [address] [address] PCP - General 02/03/11
--- OUTSIDE RECORDS SUMMARY | 2024-10-08 00:55 | XMS_ITS | Encounter Summary ---
Author Organization [facility] Address [address] [place] [address] Care Team Providers Care Bulbs Farmworker Name Role Phone Cain Mendoza MD Primary Care Provider [phone] Encounter Details Date Type Department Care Team (Late st Contact Info) Description 02/21/2001 Outpatient Historical [place] [address] [facility] [place] [address] Social History Tobacco Use Types Packs/Day Years Used Date Smoking Tobacco: Never Assessed Sex and Gender Information Value Date Recorded Sex Assigned at Not on file Legal Sex Male 4:37 AM HIMS MANAGER Gender Identity Not on file Sexual Orientation Not on file documented as of this encounter Plan of Treatment Upcoming Encounters Date Type Department Care Team (Late st Contact Info) Description 08/30/2025 8:30 AM CDT Office Visit [facility] [place] Oncology and Hematology - [address] [facility] [address] [place] [address] Lewis Stanley MD [address] [facility] [address] [place] [address] documented as of this encounter Visit Diagnoses Not on filedocumented in this encounter Care Teams Bulbs Farmworker Relationship Specialty Start Date End Date Cain Mnedoza MD [address] [place] [phone] PCP - General Family Practice 12/17/22 documented as of this encounter
--- OUTSIDE RECORDS SUMMARY | 2024-10-08 00:55 | XMS_ITS | Encounter Summary ---
Author Organization [facility] Address [address] [place] [address] Care Team Providers Care Recovery Assistant Name Role Phone Cain Mendoza MD Primary Care Provider [phone] Encounter Details Date Type Department Care Team (Late st Contact Info) Description 02/21/2001 Outpatient Historical [facility] Social History Tobacco Use Types Packs/Day Years Used Date Smoking Tobacco: Never Assessed Sex and Gender Information Value Date Recorded Sex Assigned at Not on file Legal Sex Male 4:[address] SQL DEVELOPER Gender Identity Not on file Sexual Orientation Not on file documented as of this encounter Plan of Treatment Upcoming Encounters Date Type Department Care Team (Late st Contact Info) Description 08/30/2025 8:30 AM CDT Office Visit [facility] Oncology and Hematology - [address] [facility] [address] [place] [address] Lewis Stanley MD [address] [facility] [address] [place] [address] documented as of this encounter Visit Diagnoses Not on filedocumented in this encounter Care Teams Recovery Assistant Relationship Specialty Start Date End Date Cain Mendoza MD [facility] [place] [phone] PCP - General Family Practice 12/17/22 documented as of this encounter
--- OUTSIDE RECORDS SUMMARY | 2024-10-08 00:55 | XMS_ITS | Clinical Summary ---
Author Organization [facility] [address] [facility] tt Address [address] [facility] [place] [address] Care Team Providers Care Filling Mixer Name Role Phone Cain Mendoza MD Primary Care Provider [phone] Allergies Active Allergy Reactions Criticality Noted Date [...] diabetic peripheral angiopathy with gangrene, unspecified whether supervisor plastering insulin use (HCC) One touch Ultra Meter [...] 37.5-25mg. Assessment & Plan (05/14/2024 10:05 AM GALVANOMETER ASSEMBLER): Chronic problem. Elevated upon arrival today. Currently taking Lisinopril 40mg, metoprolol XL 100mg daily, triamterene-HCTZ 37.5-25mg. Assessment & Plan (09/14/2023 10:10 AM CDT): Chronic problem, improved on recheck. Continue lisinopril, metoprolol, Maxzide, furosemide, diltiazem. Assessment & Plan (06/02/2023 12:31 PM GALVANOMETER ASSEMBLER): Chronic, well-controlled. Continue lisinopril Assessment & Plan (02/10/2023 10:37 AM GALVANOMETER ASSEMBLER): Chronic problem. Elevated upon arrival today. Currently taking Lisinopril 40mg, metoprolol XL 100mg daily, triamterene-HCTZ 37.5-25mg. Class 2 severe obesity due t o excess calories with serious comorbidity and body mass index (BMI) of 35.0 to 35.9 in adult 02/10/2023 Assessment & Plan (02/10/2023 3:18 PM GALVANOMETER ASSEMBLER): Actively working on weight loss. Difficulty w/exercise d/t chronic back pain. Discussed healthy diet and importance of regular physical activity (20- 30min/day, 150min/wk). Hyperlipidemia associated with type 2 diabetes cal epstein 10/28/2022 Assessment & Plan (09/12/2024 9:26 AM CDT): Chronic problem. Near goal on current Atorvastatin 40mg & fenofibrate 135mg. Last lipid panel: 01/10/24 LDL=89, HS=052. Assessment & Plan (05/14/2024 10:04 AM GALVANOMETER ASSEMBLER): Chronic problem. Near goal on current Atorvastatin 40mg & fenofibrate 135mg. Last lipid panel: 01/10/24 LDL=89, QV=058. Assessment & Plan (01/10/2024 1:15 PM CDT): Chronic, stable. Update lipid profile. Continue statin therapy with atorvastatin 40 mg daily Assessment & Plan (09/14/2023 10:10 AM CDT): Chronic problem. On statin therapy, no changes. Assessment & Plan (06/02/2023 12:31 PM GALVANOMETER ASSEMBLER): Chronic, stable. Continue combination therapy of atorvastatin 40 mg daily with fenofibrate Diet and exercise advised Assessment & Plan (02/10/2023 10:38 AM GALVANOMETER ASSEMBLER): Chronic problem. Near goal on current Atorvastatin 40mg & fenofibrate 135mg. Last lipid panel: 10/28/22 LDL=84, CA=309. Assessment & Plan (10/28/2022 3:49 PM CDT): LDL goal under 80 Update lipid profile Continue atorvastatin 40 mg daily Persistent proteinuria 10/02/2018 Chronic mastoiditis, right ear 01/25/2018 Conductive hearing loss of l eft ear with unrestricted hearing of right ear 10/06/2017 Chronic allergic rhinitis due to pollen 10/07/19 18 Morbid (severe) obesity due to excess calories 1 05/11/2016 Mixed hearing loss, bilateral 03/10/2017 medical practice manager current use of insulin 03/10/2017 Body mass [...] infection. Assessment & Plan (05/14/2024 10:27 AM GALVANOMETER ASSEMBLER): Chronic problem. A1c at goal/stable today at [...] Trulicity. Assessment & Plan (06/02/2023 12:30 PM GALVANOMETER ASSEMBLER): Chronic, well-controlled with risk of hypoglycemia Stop Toujeo Continue Jardiance 25 mg daily Continue Trulicity Patient to call if blood glucose persistently increased to over 150 Assessment & Plan (02/10/2023 11:13 AM GALVANOMETER ASSEMBLER): Chronic problem. A1c at goal/stable today at 5.9%. Current medications: Jardiance 25mg daily Metformin 1000mg daily Trulicity 3mg weekly Toujeo 15 units daily Regular insulin 10 units for blood sugar over 150 (rarely uses) UTD on labs. DM eye exam completed at [facility]. Letter sent to get copy of [...] Type Department Care Team Description 09/27/2024 Telephone [facility] Cardiology [address] [place] [address] Aquiles Little MD 09/26/2024 Telephone [facility] Diabetes and Endocrinology [address] [place] [address] Kaitlynn Vivas, HELGA Med Management (Toujeo); [employer] P[employer] Toujeo arrived 09/17/2024 Telephone [facility] Diabetes and Endocrinology [address] [place] [address] Kaitlynn Vivas, HELGA Med Management (Test Strips) 09/13/2024 Results Follow-Up [facility] Diabetes and Endocrinology [address] [place] [address] Kaitlynn Vivas, HELGA Urinalysis reflex to microscopic and culture Urine, clean voided, Urinalysis, microscopic only 09/12/2024 9:46 AM CDT - 09/12/2024 11:59 PM CDT Hospital Encounter [address] [address] Dysuria Discharge Disposition: Discharge to home or self care 09/12/2024 9:45 AM CDT Lab [facility] Outpatient Lab at [address] [address] 09/12/2024 9:00 AM CDT Office Visit [facility] Diabetes and Endocrinology [address] [place] [address] Kaitlynn Vivas, HOSPITAL ADMITTING CLERK Type 2 diabetes mellitus with hyperglycemia, with long-term current use of insulin (HCC) (Primary Dx); Hypertension associated with type 2 diabetes mellitus (HCC); Hyperlipidemia associated with type 2 diabetes mellitus (HCC); Dysuria 09/12/2024 Orders Only [facility] Diabetes and Endocrinology [address] [place] [address] Cain Mendoza MD 09/07/2024 Telephone [facility] Diabetes and Endocrinology [address] [place] [address] Dania Escoto MD request to pcp [...] on file Legal Sex Male 12:39 PM GALVANOMETER ASSEMBLER Gender Identity Not on file Sexual Orientation Straight 01/10/2024 11 :32 AM CDT Obstetrics History Last Filed Vital Signs Vital Sign Reading Time Taken Comments Blood Pressure 136/72 09/12/2024 9:11 AM CDT Pulse 80 09/12/2024 9:11 AM CDT Temperature 36.2 C (97.1 F) 03/18/2020 9:01 AM GALVANOMETER ASSEMBLER Respiratory Rate 18 09/12/2024 9:11 AM CDT Oxygen Saturation 96% 03/18/2020 9:01 AM GALVANOMETER ASSEMBLER Inhaled Oxygen Concentration - - Weight 114.3 [...] 07/14/2020, Additional history exists Influenza Vaccine (#1) 2024 Albumin Creatinine Ratio, Urine 01/09/2025 , 11/01/2022 Depression Screening 01/09/2025 01/10/2024, 01/10/20 24 Lipid Panel 01/09/2025 01/10/2024, 10/28/2022 eGFR 01/09/2025 01/10/2024, 10/28/2022 Hemoglobin A1C 03/14/2025 09/12/2024, 02, 01/10/2024, Additional history exists Dilated Eye Exam [...] DIABETES EYE EXAM Routine 04/16/2024 9:12 AM GALVANOMETER ASSEMBLER EGFR Routine 01/10/2024 12:21 PM CDT Type 2 diabetes mellitus with diabetic peripheral angiopathy with gangrene, unspecified whether supervisor plastering insulin use (HCC) LIPID PANEL Routine 01/10/2024 12:21 PM CDT Type 2 diabetes mellitus with diabetic peripheral angiopathy with gangrene, unspecified whether long-term insulin use (HCC) ALBUMIN CREATININE RATIO, URINE [...] tendency for uric acid stone formation. Source: [employer] Current Interpretive Data was last revised on 2017 Protein, ur ql 1+(A) Negative [facility] Glucose, ur ql 3+(A) Negative [facility] Ketones, ur Negative Negative [facility] Bilirubin, ur Negative Negative [facility] Blood, ur Negative Negative [facility] Urobilinogen, ur <2.0 <2.0 mg/dL [facility] Nitrite, ur Negative Negative [facility] Leukocyte esterase, ur Negative Negative [facility] UA reflex comment Reflex to microscopic UA will be performed. [facility] Urine, clean voided 09/12/2024 9:46 AM CDT 09/12/2024 8:39 PM CDT us Kaitlynnmarisela Vivas HOSPITAL ADMITTING CLERK LAB MICROBIOLOGY - GENERA L ORDERABLES Final Result Performing Organization Address [facility] Co de Phone Number [facility] [address] [address] [employer] [place], [place] [id number] * Urinalysis, microscopic only (09/12/2024 9:46 AM CDT) WBC, ur 0-5 0 - 5 /HPF RBC, ur 0-2 0 - 2 /HPF [facility] Epithelial cells, squamous, ur 1-5 0 - 5 /HPF [facility] Culture Reflex Comment Reflex conditions for urine culture (WBC >10) not met. [facility] Urine, clean voided 09/12/2024 9:46 AM CDT 09/12/2024 8:39 PM CDT us Kaitlynnmarisela Vivas NP LAB URINE ORDERABLES Jayne l Result Performing Organization Address [facility] Co de Phone Number [facility] [address] [address] [employer] [place] [address] * (ABNORMAL) POCT hemoglobin A1c (09/12/2024 9:14 AM CDT) Hemoglobin A1C, POC 6.0(A) 4.0 - 5.6 % Blood 09/12/2024 9:14 AM CDT us Kaitlynnmarisela Vivas HOSPITAL ADMITTING CLERK POINT OF CARE TEST ORDERA BLES Final Result * (ABNORMAL) POCT glucose (09/12/2024 9:14 AM CDT) Glucose Blood, POC 151 Normal Fasting 70 - 100, Random <200 mg/dL Blood 09/12/2024 9:14 AM CDT Result [facility] Kaitlynn Vivas HOSPITAL ADMITTING CLERK POINT OF CARE TEST ORDERA BLES Final Result * HM DIABETES EYE EXAM (04/16/2024 9:12 AM GALVANOMETER ASSEMBLER) Result [facility] Historical Provider HEALTH MAINTENANCE Final Result [...] MD LAB BLOOD ORDERABLES Final Resul t LXE [place] [address] Department [place] [address] * (ABNORMAL) Albumin Creatinine Ratio, Urine [...] LAB URINE ORDERABLES Final Resul t LEX [address] [address] Department [place] [address] * (ABNORMAL) Lipid panel (01/10/2024 [...] 2004;110:227 3. Dontrell Clark al. CORDELL Cardiol. 2019August 02;5(5):540-548. doi: [email or web address] [...] LAB BLOOD ORDERABLES Final Resul t LEX [address] [address] Department [place] [address] from Last 3 Months or Most Recently Relevant to Health Maintenance Insurance [facility] Care Teams Filling Mixer Relationship Specialty Start Date End Date Cain Mendoza MD [address] [address] PCP - General 02/03/11
--- OUTSIDE RECORDS SUMMARY | 2024-10-08 00:55 | XMS_ITS | Encounter Summary ---
Author Organization [facility] Address 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 [address] [place] [address] Lewis Stanley MD [address] [facility] [address] [place] [address] documented as of this encounter Visit Diagnoses Not on filedocumented in this encounter Care Teams Safety Analyst Relationship Specialty Start Date End Date Cain Mendoza MD [address] [place] [phone] PCP - General Family Practice 12/17/22 documented as of this encounter
--- OUTSIDE RECORDS SUMMARY | 2024-10-08 00:55 | XMS_ITS | Continuity of Care Document ---
Author Organization [facility] Address [address] [place] [address] Phone Care Team Providers Care Machine Operator Name Role Phone Yuriy Gonzales DO Unavailable Unavailable Advance Directives Directive Yes / No Effective Date File Name No Information Encounters Encounter Description Practice Location Reason(s) For Visit Diagnoses Date Provider Providers Copied on Encounter [facility], [address], [place], [place], [id number], [place] tel:[phone] [facility] No Information Christian Plummer. [address] [facility], [place], [address], [place]. tel:[phone] Family History Family Member Type Diagnosis Age [...]
[2024-10-08] MEDS: MIDAZOLAM HCL (*CRX) 2 MG/2 ML VIAL 1 MG IV PUSH (07:56)
[2024-10-08] MEDS: fentaNYL CITRATE INJ (*CRX) 100 MCG/2 ML VIAL 50 MCG IV PUSH (07:56)
== END 2024-10-08 09:05 | disposition home or self-care (01) ==
PROVIDERS: PCP Family Medicine; Visit Provider Internal Medicine Cardiovascular Disease
PROC: (CPT 93312; principal; 2024-10-08 08:00)
DX: I08.0 Rheumatic disorders of both mitral and aortic valves (principal); I35.2 Nonrheumatic aortic (valve) stenosis with insufficiency; I10 Essential (primary) hypertension; E78.2 Mixed hyperlipidemia; G47.33 Obstructive sleep apnea (adult) (pediatric); J44.9 Chronic obstructive pulmonary disease, unspecified; E11.51 Type 2 diabetes mellitus with diabetic peripheral angiopathy without gangrene; Z87.891 Personal history of nicotine dependence; F12.90 Cannabis use, unspecified, uncomplicated
CPT/HCPCS: 93312; 93320; 93325; J2250; J3010; J7040

== ENCOUNTER 2024-10-18 01:19 | Day surgery (SDC) | payer OTHER, SELFPAY ==
[2024-10-17 12:35] VITALS: BMI 36.2
[2024-10-18] VITALS (11 sets, daily range): BP systolic 106–192; BP diastolic 57–88; PULSE 65–90; RESP 12–22; TEMP 36.3; O2SAT 96–100; BMI 35.8
--- OUTSIDE RECORDS SUMMARY | 2024-10-18 01:25 | XMS_ITS | Encounter Summary ---
Author Organization [facility] Healthcare Address [address] [place] [address] Care Team Providers Care Director Of Programming Name Role Phone Cain Mendoza MD Primary Care Provider [phone] Encounter Details Date Type Department Care Team (Late st Contact Info) Description 09/13/2024 Results Follow-Up [facility] Diabetes and Endocrinology [address] [place] [address] Kaitlynn Vivas, CD MIXER HELPER [address] [facility] [address] [place] [address] Urinalysis reflex to microscopic and culture Urine, [...] on file 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
--- OUTSIDE RECORDS SUMMARY | 2024-10-18 01:25 | XMS_ITS | Clinical Summary ---
Author Organization [facility] Address [address] [place] [address] Phone Care Team Providers Care Process Cheese Cooker Name Role Phone Julio Puentes MD Primary Care Provider [phone] Allergies Active Allergy Reactions Criticality Noted Date [...] 3 TIMES DAILY 0 Active UltiCare Pen [place] 29G X 12.7MM misc USE 1 PEN [...] 2024 Insurance [employer] HMO Care Teams Process Cheese Cooker Relationship Specialty Start Date End Date Julio Puentes MD [address] [place] [phone] PCP - General Family Medicine 10/02/18
--- OUTSIDE RECORDS SUMMARY | 2024-10-18 01:25 | XMS_ITS | Clinical Summary ---
Author Organization [facility] Address [address] [place] [address] Phone Care Team Providers Care Glass Melt Operator Name Role Phone Jabier Acosta Primary Care Provider [phone] Allergies Active Allergy Reactions Criticality Noted Date [...] file Insurance MEDICARE C [employer] Care Teams Glass Melt Operator Relationship Specialty Start Date End Date Jabier Acosta DO [address] [facility] [address] [place] [address] PCP - General Internal Medicine 10/05/21
--- OUTSIDE RECORDS SUMMARY | 2024-10-18 01:25 | XMS_ITS | Encounter Summary ---
Author Organization [facility] Address 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 Gender Identity Not on file Sexual Orientation Not on file documented as of this encounter Plan of Treatment Upcoming Encounters Date Type Department Care Team (Late st Contact Info) Description 08/30/2025 8:30 AM CDT Office Visit [facility] Oncology and Hematology - [place] [address] [facility] [address] [place] [address] Lewis Stanley MD [address] [facility] [address] [place] [address] documented as of this encounter Visit Diagnoses Not on filedocumented in this encounter Care Teams Body Die Maker Relationship Specialty Start Date End Date Cain Mendoza MD [facility] [place] [phone] PCP - General Family Practice 12/17/22 documented as of this encounter
--- OUTSIDE RECORDS SUMMARY | 2024-10-18 01:25 | XMS_ITS | Clinical Summary ---
Author Organization [facility] Address [address] [place] [address] Care Team Providers Care Vulcanized Fiber Unit Operator Name Role Phone Julio Puentes MD Primary Care Provider [phone] Source Comments [facility] [employer],non-owned Affiliates and Associated Physician Practices is amultiple site organization consisting of ambulatory clinics and hospital sitesin [place], [place], [place] and [place]. This disclosure is being madepursuant to the Care Everywhere program and may not contain all information available regarding this patient. Last updated 17.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 Member ID:Not on file Relation to Subscriber:Not on file Name:CARI LAM Subscriber ID:Not on file (Home) Address: [address] [place] [address] Payer ID:Not on file Group ID:Not on file Type:Self Pay Address: [place], [place] Care Teams Vulcanized Fiber Unit Operator Relationship Specialty Start Date End Date Julio Puentes MD [address] [place] [address] PCP - General Internal Medicine 02/23/19
--- OUTSIDE RECORDS SUMMARY | 2024-10-18 01:25 | XMS_ITS | Encounter Summary ---
Author Organization [facility] Address [address] [place] [address] Care Team Providers Care Chair Upholsterer Name Role Phone Cain Mendoza MD Primary Care Provider [phone] Reason for Visit * Reason Comments Medication Refill Encounter Details Date Type Department Care Team (Late Contact Info) Description 12/01/2012 Refill [facility] [place] [address] [facility] [address] [address] [place] [address] Madeline Talley MD [address] [place] [address] Social History Tobacco Use Types Packs/Day Years Used Date Smoking Tobacco: Never Assessed Sex and Gender Information Value Date Recorded Sex Assigned at Not on file 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 Gender Identity Not on file Sexual Orientation Not on file documented as of this encounter Miscellaneous Notes * Telephone Encounter - Rachell Russell - 12/02/2012 8:41 AM CDT Not our pt documented in this encounter Plan of Treatment Upcoming Encounters Date Type Department Care Team (Late st Contact Info) Description 08/30/2025 8:30 AM CDT Office Visit [facility] Oncology and Hematology - [place] [address] [facility] [address] [place] [address] Lewis Stanley MD [address] [facility] [address] [place] [address] documented as of this encounter Visit Diagnoses Not on filedocumented in this encounter Care Teams Chair Upholsterer Relationship Specialty Start Date End Date Cain Mendoza MD [address] [place] [address] PCP - General Family Practice 12/17/22 documented as of this encounter
--- OUTSIDE RECORDS SUMMARY | 2024-10-18 01:25 | XMS_ITS | Encounter Summary ---
Author Organization [facility] Care Team Providers Care Atm Mechanic Name Role Phone Cain Mendoza MD Primary Care Provider [phone] Encounter Details Date Type Department Care Team (Latest Contact Info) Description 10/06/2017 Orders Only [facility] ProviderOscar MD [address] [place] [address] Social History Tobacco Use Types Packs/Day Years Used Date Smoking Tobacco: Never Assessed Alcohol Use Standard Drinks/Week Comments No 0 (1 standard drink = 0.6 oz pur e alcohol) Sex and Gender Information Value Date Recorded Sex Assigned at Not on file 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
--- OUTSIDE RECORDS SUMMARY | 2024-10-18 01:25 | XMS_ITS | Encounter Summary ---
Author Organization [facility] Address 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 Gender Identity Not on file Sexual Orientation Not on file documented as of this encounter Plan of Treatment Upcoming Encounters Date Type Department Care Team (Late st Contact Info) Description 08/30/2025 8:30 AM CDT Office Visit [facility] Oncology and Hematology - [place] [address] [facility] [address] [place] [address] Lewis Stanley MD [address] [facility] [address] [place] [address] documented as of this encounter Visit Diagnoses Not on filedocumented in this encounter Care Teams Competency Evaluated Nurse Aide Relationship Specialty Start Date End Date Cain Mendoza MD [address] [place] [phone] PCP - General Family Practice 12/17/22 documented as of this encounter
--- OUTSIDE RECORDS SUMMARY | 2024-10-18 01:25 | XMS_ITS | Referral Summary ---
Author Organization [facility] [address] Address [address] [place] [address] Care Team Providers Care Commercial Litigation Paralegal Name Role Phone Cain Mendoza MD Primary Care Provider [phone] Encounters Date Type Department Care Team Description 09/27/2024 Telephone [facility] Card[facility] [address] [place] [address] Aquiles Little MD 09/26/2024 Telephone [facility] Diabetes and Endocrinology [address] [place] [phone] Kaitlynn Vivas, LENDING CONSULTANT Med Management (Toujeo); Sanofi PAP Toujeo arrived 09/17/2024 Telephone [facility] Diabetes and Endocrinology [address] [place] [phone] Kaitlynn Vivas, HELGA Med Management (Test Strips) 09/13/2024 Results Follow-Up [facility] Diabetes [facility] Endocrinology [address] [place] [phone] Kaitlynn Vivas, LENDING CONSULTANT Urinalysis reflex to microscopic and culture Urine, clean voided, Urinalysis, microscopic only 09/12/2024 9:46 AM CDT - 09/12/2024 11:59 PM CDT Hospital Encounter [address] [address] Dysuria Discharge Disposition: Discharge to home or self care 09/12/2024 9:45 AM CDT Lab [facility] Outpatient Lab at [address] [phone] 09/12/2024 Orders Only [facility] Diabetes and Endocrinology [address] [place] [phone] Cain Mendoza MD 09/12/2024 9:00 AM CDT Office Visit [facility] Diabetes and Endocrinology [address] [place] [phone] Kaitlynn Vivas, HELGA Type 2 diabetes mellitus with hyperglycemia, with long-term current use of insulin (HCC) (Primary Dx); Hypertension associated with type 2 diabetes mellitus (HCC); Hyperlipidemia associated with type 2 diabetes mellitus (HCC); Dysuria 09/07/2024 Telephone [facility] Diabetes and Endocrinology [address] [place] [phone] Dania Escoto MD request to pcp for [...] diabetic peripheral angiopathy with gangrene, unspecified whether continuous churn buttermaker insulin use (HCC) One Touch Ultra Test [...] mL 3 025 Discontin ued(Alter shonda therapy) TOUJEO 300 unit/mL (1.5 mL) pen for injection Inject 20 Units under the skin every morning 5 025 Discontin ued(Alter shonda therapy) Active Problems Problem Noted Date Diagnosed Date Hypertension associated with type 2 diabetes deedee litus 02/10/2023 Assessment & Plan (09/12/2024 9:27 AM CDT): Chronic problem. Elevated upon arrival today. Currently taking Lisinopril 40mg, metoprolol XL 100mg daily, diltiazem CD 240mg daily, triamterene-HCTZ 37.5-25mg. Assessment & Plan (05/14/2024 10:05 AM EQUAL OPPORTUNITY OFFICER): Chronic problem. Elevated upon arrival today. Currently taking Lisinopril 40mg, metoprolol XL 100mg daily, triamterene-HCTZ 37.5-25mg. Assessment & Plan (09/14/2023 10:10 AM CDT): Chronic problem, improved on recheck. Continue lisinopril, metoprolol, Maxzide, furosemide, diltiazem. Assessment & Plan (06/02/2023 12:31 PM EQUAL OPPORTUNITY OFFICER): Chronic, well-controlled. Continue lisinopril Assessment & Plan (02/10/2023 10:37 AM EQUAL OPPORTUNITY OFFICER): Chronic problem. Elevated upon arrival today. Currently taking Lisinopril 40mg, metoprolol XL 100mg daily, triamterene-HCTZ 37.5-25mg. Class 2 severe obesity due t o excess calories with serious comorbidity and body mass index (BMI) of 35.0 to 35.9 in adult 02/10/2023 Assessment & Plan (02/10/2023 3:18 PM EQUAL OPPORTUNITY OFFICER): Actively working on weight loss. Difficulty w/exercise d/t chronic back pain. Discussed healthy diet and importance of regular physical activity (20- 30min/day, 150min/wk). Hyperlipidemia associated with type 2 diabetes cal epstein 10/28/2022 Assessment & Plan (09/12/2024 9:26 AM CDT): Chronic problem. Near goal on current Atorvastatin 40mg & fenofibrate 135mg. Last lipid panel: 01/10/24 LDL=89, SM=538. Assessment & Plan (05/14/2024 10:04 AM EQUAL OPPORTUNITY OFFICER): Chronic problem. Near goal on current Atorvastatin 40mg & fenofibrate 135mg. Last lipid panel: 01/10/24 LDL=89, QH=118. Assessment & Plan (01/10/2024 1:15 PM CDT): Chronic, stable. Update lipid profile. Continue statin therapy with atorvastatin 40 mg daily Assessment & Plan (09/14/2023 10:10 AM CDT): Chronic problem. On statin therapy, no changes. Assessment & Plan (06/02/2023 12:31 PM EQUAL OPPORTUNITY OFFICER): Chronic, stable. Continue combination therapy of atorvastatin 40 mg daily with fenofibrate Diet and exercise advised Assessment & Plan (02/10/2023 10:38 AM EQUAL OPPORTUNITY OFFICER): Chronic problem. Near goal on current Atorvastatin 40mg & fenofibrate 135mg. Last lipid panel: 10/28/22 LDL=84, CM=216. Assessment & Plan (10/28/2022 3:49 PM CDT): LDL goal under 80 Update lipid profile Continue atorvastatin 40 mg daily Persistent proteinuria 10/02/2018 Chronic mastoiditis, right ear 01/25/2018 Conductive hearing loss of l eft ear with unrestricted hearing of right ear 10/06/2017 Chronic allergic rhinitis due to pollen 10/07/19 18 Morbid (severe) obesity due to excess calories 1 05/11/2016 Mixed hearing loss, bilateral 03/10/2017 longterm current use of insulin 03/10/2017 Body mass [...] on DM eye exam (04/16/24 no DMR Jeseindra Sweetser) Strive for regular exercise (30min most days) [...] infection. Assessment & Plan (05/14/2024 10:27 AM EQUAL OPPORTUNITY OFFICER): Chronic problem. A1c at goal/stable today at 6.5%. no changes at this time. Current medications: Jardiance 25mg daily Metformin 1000mg twice daily Trulicity 4.5 mg weekly (PAP) Toujeo 15 units daily (PAP) Regular insulin 10 units for blood sugar over 200 (rarely uses) UTD on labs. DM eye exam completed 12/16/22 mild NPDR wo DME [facility] [place]. Rosemary Ty 04/16/24. Letter sent to get [...] Trulicity. Assessment & Plan (06/02/2023 12:30 PM EQUAL OPPORTUNITY OFFICER): Chronic, well-controlled with risk of hypoglycemia Stop Toujeo Continue Jardiance 25 mg daily Continue Trulicity Patient to call if blood glucose persistently increased to over 150 Assessment & Plan (02/10/2023 11:13 AM EQUAL OPPORTUNITY OFFICER): Chronic problem. A1c at goal/stable today at 5.9%. Current medications: Jardiance 25mg daily Metformin 1000mg daily Trulicity 3mg weekly Toujeo 15 units daily Regular insulin 10 units for blood sugar over 150 (rarely uses) UTD on labs. DM eye exam completed -12/2022 at [facility]. Letter sent to get copy [...] on file Legal Sex Male 12:39 PM EQUAL OPPORTUNITY OFFICER Gender Identity Not on file Sexual Orientation Straight 01/10/2024 11 :32 AM CDT Last Filed Vital Signs Vital Sign Reading Time Taken Comments Blood Pressure 136/72 09/12/2024 9:11 AM CDT Pulse 80 09/12/2024 9:11 AM CDT Temperature 36.2 C (97.1 F) 03/18/2020 9:01 AM EQUAL OPPORTUNITY OFFICER Respiratory Rate 18 09/12/2024 9:11 AM CDT Oxygen Saturation 96% 03/18/2020 9:01 AM EQUAL OPPORTUNITY OFFICER Inhaled Oxygen Concentration - - Weight 114.3 [...] DIABETES EYE EXAM Routine 04/16/2024 9:12 AM EQUAL OPPORTUNITY OFFICER EGFR Routine 01/10/2024 12:21 PM CDT Type 2 diabetes mellitus with diabetic peripheral angiopathy with gangrene, unspecified whether continuous churn buttermaker insulin use (HCC) LIPID PANEL Routine 01/10/2024 12:21 PM CDT Type 2 diabetes mellitus with diabetic peripheral angiopathy with gangrene, unspecified whether continuous churn buttermaker insulin use (HCC) ALBUMIN CREATININE RATIO, URINE Routine 01/10/2024 12:21 PM CDT Type 2 diabetes mellitus with diabetic peripheral angiopathy with gangrene, unspecified whether continuous churn buttermaker insulin use (HCC) from Last 3 Months [...] tendency for uric acid stone formation. Source: [facility] Current Interpretive Data was last revised on [...] CDT 09/12/2024 8:39 PM CDT us Kaitlynn R. Schleeper LENDING CONSULTANT LAB MICROBIOLOGY - GENERA L ORDERABLES Final Result Performing Organization Address [facility] Co de Phone Number [facility] [address] [place] [address] * Urinalysis, microscopic only (09/12/2024 9:46 AM CDT) WBC, ur 0-5 0 - 5 /HPF RBC, ur 0-2 0 - 2 /HPF [facility] Epithelial cells, squamous, ur 1-5 0 - 5 /HPF [facility] Culture Reflex Comment Reflex conditions for urine culture (WBC >10) not met. [facility] Urine, clean voided 09/12/2024 9:46 AM CDT 09/12/2024 8:39 PM CDT us Kaitlynn Vivas LENDING CONSULTANT LAB URINE ORDERABLES Jayne l Result Performing Organization Address [facility] Co de Phone Number [facility] [address] [place] [address] * (ABNORMAL) POCT hemoglobin A1c (09/12/2024 9:14 [...] HM DIABETES EYE EXAM (04/16/2024 9:12 AM EQUAL OPPORTUNITY OFFICER) us Historical Provider HEALTH MAINTENANCE Final Result [...] LAB BLOOD ORDERABLES Final Resul t [address] Department [place] [address] * (ABNORMAL) Albumin Creatinine Ratio, [...] URINE ORDERABLES Final Resul t [facility] [place] [address] [place] [address] * (ABNORMAL) Lipid panel (01/10/2024 12:21 PM [...] BLOOD ORDERABLES Final Resul t [facility] [address] Department [place] [address] from Last 3 Months or Most Recently Relevant to Health Maintenance Insurance [facility] Care Teams Commercial Litigation Paralegal Relationship Specialty Start Date End Date Cain Mendoza MD [address] [facility] [address] [place] [address] PCP - General 02/03/11
--- OUTSIDE RECORDS SUMMARY | 2024-10-18 01:25 | XMS_ITS | Encounter Summary ---
Author Organization [facility] Address [address] [place] [address] Care Team Providers Care Overlock Operator Name Role Phone Cain Mendoza MD Primary Care Provider [phone] Encounter Details Date Type Department Care Team (Late st Contact Info) Description 10/17/2024 External Device Data [facility] ABSTRACTION Provider, Abstract NO ADDRESS ON FILE Social History Tobacco Use Types Packs/Day Years Used Date Smoking Tobacco: Former Cigarettes 2 25 0 08/04/1998 - 08/05/2023 Smokeless Tobacco: Never Alcohol Use Standard Drinks/Week Comments Never 0 (1 standard drink = 0.6 oz pur e alcohol) Sex and Gender Information Value Date Recorded Sex Assigned at Not on file Legal 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 Gender Identity Not on file Sexual Orientation Not on file documented as of this encounter Plan of Treatment Upcoming Encounters Date Type Department Care Team (Late st Contact Info) Description 08/30/2025 8:30 AM CDT Office Visit [facility] Oncology and Hematology - [place] [address] [facility] [address] [place] [address] Lewis Stanley MD [address] [facility] [address] [place] [address] documented as of this encounter Visit Diagnoses Not on filedocumented in this encounter Care Teams Overlock Operator Relationship Specialty Start Date End Date Cain Mendoza MD [facility] [place] [phone] PCP - General Family Practice 12/17/22 documented as of this encounter
--- OUTSIDE RECORDS SUMMARY | 2024-10-18 01:25 | XMS_ITS | Clinical Summary ---
Author Organization [facility] [address] [facility] tt Address [address] [facility] [place] [address] Care Team Providers Care Infant Nanny Name Role Phone Cain Mendoza MD Primary Care Provider [phone] Allergies Active Allergy Reactions Criticality Noted Date [...] diabetic peripheral angiopathy with gangrene, unspecified whether prison insulin use (HCC) One touch Ultra Meter [...] diabetic peripheral angiopathy with gangrene, unspecified whether assistant terminal manager insulin use (HCC) One Touch Ultra [...] 37.5-25mg. Assessment & Plan (05/14/2024 10:05 AM BAG PRESS OPERATOR): Chronic problem. Elevated upon arrival today. Currently taking Lisinopril 40mg, metoprolol XL 100mg daily, triamterene-HCTZ 37.5-25mg. Assessment & Plan (09/14/2023 10:10 AM CDT): Chronic problem, improved on recheck. Continue lisinopril, metoprolol, Maxzide, furosemide, diltiazem. Assessment & Plan (06/02/2023 12:31 PM BAG PRESS OPERATOR): Chronic, well-controlled. Continue lisinopril Assessment & Plan (02/10/2023 10:37 AM BAG PRESS OPERATOR): Chronic problem. Elevated upon arrival today. Currently taking Lisinopril 40mg, metoprolol XL 100mg daily, triamterene-HCTZ 37.5-25mg. Class 2 severe obesity due t o excess calories with serious comorbidity and body mass index (BMI) of 35.0 to 35.9 in adult 02/10/2023 Assessment & Plan (02/10/2023 3:18 PM BAG PRESS OPERATOR): Actively working on weight loss. Difficulty w/exercise d/t chronic back pain. Discussed healthy diet and importance of regular physical activity (20- 30min/day, 150min/wk). Hyperlipidemia associated with type 2 diabetes cal epstein 10/28/2022 Assessment & Plan (09/12/2024 9:26 AM CDT): Chronic problem. Near goal on current Atorvastatin 40mg & fenofibrate 135mg. Last lipid panel: 01/10/24 LDL=89, SK=682. Assessment & Plan (05/14/2024 10:04 AM BAG PRESS OPERATOR): Chronic problem. Near goal on current Atorvastatin 40mg & fenofibrate 135mg. Last lipid panel: 01/10/24 LDL=89, VO=444. Assessment & Plan (01/10/2024 1:15 PM CDT): Chronic, stable. Update lipid profile. Continue statin therapy with atorvastatin 40 mg daily Assessment & Plan (09/14/2023 10:10 AM CDT): Chronic problem. On statin therapy, no changes. Assessment & Plan (06/02/2023 12:31 PM BAG PRESS OPERATOR): Chronic, stable. Continue combination therapy of atorvastatin 40 mg daily with fenofibrate Diet and exercise advised Assessment & Plan (02/10/2023 10:38 AM BAG PRESS OPERATOR): Chronic problem. Near goal on current Atorvastatin 40mg & fenofibrate 135mg. Last lipid panel: 10/28/22 LDL=84, NH=948. Assessment & Plan (10/28/2022 3:49 PM CDT): LDL goal under 80 Update lipid profile Continue atorvastatin 40 mg daily Persistent proteinuria 10/02/2018 Chronic mastoiditis, right ear 01/25/2018 Conductive hearing loss of l eft ear with unrestricted hearing of right ear 10/06/2017 Chronic allergic rhinitis due to pollen 10/07/19 18 Morbid (severe) obesity due to excess calories 1 05/11/2016 Mixed hearing loss, bilateral 03/10/2017 halfway current use of insulin 03/10/2017 Body mass [...] infection. Assessment & Plan (05/14/2024 10:27 AM BAG PRESS OPERATOR): Chronic problem. A1c at goal/stable today [...] Trulicity. Assessment & Plan (06/02/2023 12:30 PM BAG PRESS OPERATOR): Chronic, well-controlled with risk of hypoglycemia Stop Toujeo Continue Jardiance 25 mg daily Continue Trulicity Patient to call if blood glucose persistently increased to over 150 Assessment & Plan (02/10/2023 11:13 AM BAG PRESS OPERATOR): Chronic problem. A1c at goal/stable today at 5.9%. Current medications: Jardiance 25mg daily Metformin 1000mg daily Trulicity 3mg weekly Toujeo 15 units daily Regular insulin 10 units for blood sugar over 150 (rarely uses) UTD on labs. DM eye exam completed at [facility]. Letter sent to get copy of [...] Type Department Care Team Description 09/27/2024 Telephone [facility] Cardiology [address] [facility] [address] [place] [address] Aquiles Little MD 09/26/2024 Telephone [facility] Diabetes and Endocrinology [facility] [place] [address] Kaitlynn Vivas, HELGA Med Management (Toujeo); San[employer]i PAP Toujeo arrived 09/17/2024 Telephone [facility] Diabetes and Endocrinology [address] [place] [phone] Kaitlynn Vivas NP Med Management (Test Strips) 09/13/2024 Results Follow-Up [facility] Diabetes and Endocrinology [address] [place] [phone] Kaitlynn Vivas NP Urinalysis reflex to microscopic and culture Urine, clean voided, Urinalysis, microscopic only 09/12/2024 9:46 AM CDT - 09/12/2024 11:59 PM CDT Hospital Encounter [address] [address] Dysuria Discharge Disposition: Discharge to home or self care 09/12/2024 9:45 AM CDT Lab [facility] Outpatient Lab at [address] [phone] 09/12/2024 9:00 AM CDT Office Visit [facility] Diabetes and Endocrinology [address] [place] [phone] Kaitlynn Vivas NP Type 2 diabetes mellitus with hyperglycemia, with long-term current use of insulin (HCC) (Primary Dx); Hypertension associated with type 2 diabetes mellitus (HCC); Hyperlipidemia associated with type 2 diabetes mellitus (HCC); Dysuria 09/12/2024 Orders Only [facility] Diabetes and Endocrinology [address] [place] [phone] Cain Mendoza MD 09/07/2024 Telephone [facility] Diabetes and Endocrinology [address] [place] [phone] Dania Escoto MD request to pcp for [...] on file Legal Sex Male 12:39 PM BAG PRESS OPERATOR Gender Identity Not on file Sexual Orientation Straight 01/10/2024 11 :32 AM CDT Obstetrics History Last Filed Vital Signs Vital Sign Reading Time Taken Comments Blood Pressure 136/72 09/12/2024 9:11 AM CDT Pulse 80 09/12/2024 9:11 AM CDT Temperature 36.2 C (97.1 F) 03/18/2020 9:01 AM BAG PRESS OPERATOR Respiratory Rate 18 09/12/2024 9:11 AM CDT Oxygen Saturation 96% 03/18/2020 9:01 AM BAG PRESS OPERATOR Inhaled Oxygen Concentration - - Weight 114.3 [...] DIABETES EYE EXAM Routine 04/16/2024 9:12 AM BAG PRESS OPERATOR EGFR Routine 01/10/2024 12:21 PM CDT Type 2 diabetes mellitus with diabetic peripheral angiopathy with gangrene, unspecified whether assistant terminal manager insulin use (HCC) LIPID PANEL Routine 01/10/2024 12:21 PM CDT Type 2 diabetes mellitus with diabetic peripheral angiopathy with gangrene, unspecified whether prison insulin use (HCC) ALBUMIN CREATININE RATIO, URINE Routine 01/10/2024 12:21 PM CDT Type 2 diabetes mellitus with diabetic peripheral angiopathy with gangrene, unspecified whether assistant terminal manager insulin use (HCC) from Last 3 Months [...] tendency for uric acid stone formation. Source: [facility] Current Interpretive Data was last revised on [...] to microscopic UA will be performed. [facility] Urine, clean voided 09/12/2024 9:46 AM CDT 09/12/2024 8:39 PM CDT us Kaitlynn Vivas NP LAB MICROBIOLOGY - GENERA L ORDERABLES Final Result [facility] [address] Department [place] [address] * Urinalysis, microscopic only (09/12/2024 9:46 AM CDT) WBC, ur 0-5 0 - 5 /HPF RBC, ur 0-2 0 - 2 /HPF [facility] Epithelial cells, squamous, ur 1-5 0 - 5 /HPF [facility] Culture Reflex Comment Reflex conditions for urine culture (WBC >10) not met. [facility] Urine, clean voided 09/12/2024 9:46 AM CDT 09/12/2024 8:39 PM CDT Result [facility] Kaitlynn Vivas NP LAB URINE ORDERABLES Jayne l Result [facility] [address] Department [place] [address] * (ABNORMAL) POCT hemoglobin A1c (09/12/2024 9:14 AM CDT) [facility] Hemoglobin A1C, POC 6.0(A) 4.0 - 5.6 % Blood 09/12/2024 9:14 AM CDT Kaitlynn Vivas NP POINT OF CARE TEST ORDERA BLES Final Result * (ABNORMAL) POCT glucose (09/12/2024 9:14 AM CDT) [facility] Glucose Blood, POC 151 Normal Fasting 70 - 100, Random <200 mg/dL Blood 09/12/2024 9:14 AM CDT Kaitlynn Vivas NP POINT OF CARE TEST ORDERA BLES Final Result * HM DIABETES EYE EXAM (04/16/2024 9:12 AM BAG PRESS OPERATOR) Result [facility] Historical Provider HEALTH MAINTENANCE Final Result * (ABNORMAL) eGFR (01/10/2024 12:21 PM CDT) [facility] eGFR 52(L) >=60 mL/min/1. 73 m2 [...] ORDERABLES Final Resul t Performing Organization Address [facility] de Phone Number [facility] [address] [place] [place] [address] * (ABNORMAL) Albumin Creatinine Ratio, [...] ORDERABLES Final Resul t Performing Organization Address [facility] de Phone Number [facility] [address] [address] of [place], [place] [id number] * (ABNORMAL) Lipid panel (01/10/2024 12:21 PM [...] BLOOD ORDERABLES Final Resul t [facility] [address] Department [place] [address] from Last 3 Months or Most Recently Relevant to Health Maintenance Insurance [facility] Care Teams Infant Nanny Relationship Specialty Start Date End Date Cain Mendoza MD [address] [facility] [facility] [address] [place] [address] PCP - General 02/03/11
--- OUTSIDE RECORDS SUMMARY | 2024-10-18 01:25 | XMS_ITS | Continuity of Care Document ---
Author Organization [facility] Address [address] [place] [address] Phone Care Team Providers Care Geoduck Diver Name Role Phone Yuriy Gonzales DO Unavailable Unavailable Advance Directives Directive Yes / No Effective Date File Name No Information Encounters Encounter Description Practice Location Reason(s) For Visit Diagnoses Date Provider Providers Copied on Encounter [facility], [address], [place], [place], [id number], [place] tel:[phone] [facility] No Information Christian Plummer. [address] [facility], [place], [address], [place]. tel:[phone] Family History Family Member Type Diagnosis Age [...]
--- OUTSIDE RECORDS SUMMARY | 2024-10-18 01:25 | XMS_ITS | Clinical Summary ---
Author Organization [facility] Address [address] [place] [address] Care Team Providers Care Technical Illustrations Map Inker Name Role Phone Cain Mendoza MD Primary Care Provider Allergies Active Allergy Reactions Criticality Noted Date [...] 9 Active fluticasone propionate (FLONASE) 50 mcg/spray [place], Suspension nasal inhaler Administer 1 [place] in each nostril. 9 Active ibuprofen (MOTRIN) [...] Take 100 mg by mouth. Active Insulin [place], Disposable, (UltiCare Pen Needle) 29 gauge x [...] Encounters Date Type Department Care Team Description 10/17/2024 External Device Data STL ABSTRACTION Provider, Abstract 08/31/2024 Orders Only [facility] Oncology and Hematology - [place] [address] [place] [address] Lewis Stanley MD 08/24/2024 8:30 AM CDT Office Visit [facility] Oncology and Hematology - [place] [address] [place] [address] Lewis Stanley MD Erythrocytosis (Primary Dx) from [...] on file Legal Sex Male 4:37 AM STATIC BALANCER Gender Identity Not on file Sexual Orientation [...] Campus Oncology and Hematology - [place] [address] [facility] [address] [place] [address] Lewis Stanley MD [address] [facility] [address] [place] [address] Health Maintenance Due Date Last [...] Resu lt from Last 3 Months Insurance [facility] Care Teams Technical Illustrations Map Inker Relationship Specialty Start Date End Date Cain Mendoza MD [address] [place] [phone] PCP - General Family Practice 12/17/22
--- OUTSIDE RECORDS SUMMARY | 2024-10-18 01:25 | XMS_ITS | Encounter Summary ---
Author Organization [facility] Address [address] [place] [address] Care Team Providers Care Millwright Apprentice Name Role Phone Cain Mendoza MD Primary Care Provider [phone] Encounter Details Date Type Department Care Team (Late st Contact Info) Description 03/21/2001 Outpatient Historical HIS BEN HUSAIN BLDG Social History Tobacco Use Types Packs/Day Years Used Date Smoking Tobacco: Never Assessed Sex and Gender Information Value Date Recorded Sex Assigned at Not on file Legal Sex Male 4:37 AM CANNERY TENDER ENGINEER Gender Identity Not on file Sexual Orientation Not on file documented as of this encounter Plan of Treatment Upcoming Encounters Date Type Department Care Team (Late st Contact Info) Description 08/30/2025 8:30 AM CDT Office Visit [facility] Oncology and Hematology - [place] [address] [facility] [address] [place] [address] Lewis Stanley MD [address] [facility] [address] [place] [address] documented as of this encounter Visit Diagnoses Not on filedocumented in this encounter Care Teams Millwright Apprentice Relationship Specialty Start Date End Date Cain Mendoza MD [facility] [place] [phone] PCP - General Family Practice 12/17/22 documented as of this encounter
--- OUTSIDE RECORDS SUMMARY | 2024-10-18 01:25 | XMS_ITS | Encounter Summary ---
Author Organization [facility] Address [address] [place] [address] Care Team Providers Care Composition Siding Worker Name Role Phone Cain Mendoza MD Primary Care Provider [phone] Encounter Details Date Type Department Care Team (Latest Contact Info) Description 03/06/2001 Outpatient Historical HIS OP SP[place] [address] [facility] [place] [address] PAIN IN LIMB (Primary Dx) Social History Tobacco Use Types Packs/Day Years Used Date Smoking Tobacco: Never Assessed Sex and Gender Information Value Date Recorded Sex Assigned at Not on file Legal Sex Male 4:37 AM KITCHEN CHEF Gender Identity Not on file Sexual Orientation Not on file documented as of this encounter Plan of Treatment Upcoming Encounters Date Type Department Care Team (Late st Contact Info) Description 08/30/2025 8:30 AM CDT Office Visit [facility] Oncology and Hematology - [place] [address] [facility] [address] [place] [address] Lewis Stanley MD [address] [facility] [address] [place] [address] documented as of this encounter Visit Diagnoses Diagnosis Pain in limb- Primary documented in this encounter Care Teams Composition Siding Worker Relationship Specialty Start Date End Date Cain Mendoza MD [facility] [place] [address] PCP - General Family Practice 12/17/22 documented as of this encounter
--- OUTSIDE RECORDS SUMMARY | 2024-10-18 01:25 | XMS_ITS | Encounter Summary ---
Author Organization [facility] Address [address] [place] [address] Care Team Providers Care Liquefaction Supervisor Name Role Phone Cain Mendoza MD Primary Care Provider [phone] Encounter Details Date Type Department Care Team (Late st Contact Info) Description 04/07/2001 Outpatient Historical [facility] OP [facility] [place] [address] [facility] [place] [address] Social History Tobacco Use Types Packs/Day Years Used Date Smoking Tobacco: Never Assessed Sex and Gender Information Value Date Recorded Sex Assigned at Not on file Legal Sex Male 4:37 AM RN GYN Gender Identity Not on file Sexual Orientation Not on file documented as of this encounter Plan of Treatment Upcoming Encounters Date Type Department Care Team (Late st Contact Info) Description 08/30/2025 8:30 AM CDT Office Visit [facility] Oncology and Hematology - [place] [address] [facility] [address] [place] [address] Lewis Stanley MD [address] [facility] [address] [place] [address] documented as of this encounter Visit Diagnoses Not on filedocumented in this encounter Care Teams Liquefaction Supervisor Relationship Specialty Start Date End Date Cain Mendoza MD [address] [place] [phone] PCP - General Family Practice 12/17/22 documented as of this encounter
[2024-10-18 07:34] LABS: Hematocrit 45.6 % (42.0-52.0); Hemoglobin 14.7 g/dL (14.0-18.0); Immature Granulocyte Percent A 1.1 % (0-0.5); Lymphocytes Absolute Auto 1.40 K/mm3 (0.9-3.2); Mean Corpuscular HGB Conc 32.2 g/dl (32-36); Mean Corpuscular Hemoglobin 27.7 pg (26-34); Mean Corpuscular Volume 85.9 fl (80-100); Nucleated Red Blood Cells Absolute Auto 0.000 K/mm3 (0.0-0.012); Nucleated Red Blood Cells Perc 0.0 % (0.0-0.2); Platelet Count Result 194 k/mm3 (150-375); Red Blood Count 5.31 M/mm3 (4.6-6.20); White Blood Count 9.9 K/mm3 (4.5-10.0)
[2024-10-18 07:56] LABS: Anion Gap 9 mmol/L (4-12); Blood Urea Nitrogen 34 mg/dL (9-20); Calcium 9.2 mg/dL (8.4-10.2); Carbon Dioxide 26 mmol/L (22-30); Chloride 101 mmol/L (98-107); Estimated CRCL calculation 80 ml/min; Estimated Glomerular Filt Rate > 60; Glucose 114 mg/dL (65-110); Potassium 3.8 mmol/L (3.4-5.0); Sodium 136 mmol/L (137-145)
--- NOTE | 2024-10-18 08:59 | WPDHPUPDATE1 ---
History and Physical Update Update Date/Time: 10/18/24 08:39 History and Physical has been reviewed, including an updated exam of the patient. There are NO changes in the patient's condition. Risks, benefits, and alternatives have been discussed and questions answered. Patient agrees to proceed with procedure.
--- NOTE | 2024-10-18 08:59 | WPDMODSED ---
Moderate Sedation Note-Pt Data Patient Data Allergies Allergy/AdvReac Type Severity Reaction Status Date / Time erythromycin base AdvReac Intermediate Gastrointestinal Verified 10/17/24 12:45 Upset tetracycline AdvReac Intermediate Gastrointestinal Verified 10/17/24 12:45 Upset Penicillins AdvReac Mild Hives Verified 10/17/24 12:45 Home Medications ?Medication ?Instructions ?Recorded ?Confirmed ?Type aspirin 81 mg tablet,delayed 81 mg PO DAILY 05/27/20 10/18/24 History release cholecalciferol (vitamin D3) 125 5,000 unit PO DAILY 05/05/22 10/17/24 History mcg (5,000 unit) capsule cyanocobalamin (vitamin B-12) 1,000 mcg PO DAILY 05/05/22 10/17/24 History 1,000 mcg tablet (Vitamin B-12) fluticasone propionate 50 50 mcg intranasal DAILY 01/12/23 10/17/24 History mcg/actuation nasal spray,suspension insulin glargine U-300 conc 300 15 unit subcut DAILY 01/14/23 10/17/24 History unit/mL (1.5 mL) subcutaneous pen (WildTangentuTM3 Software SoloStar U-300 Insulin) albuterol sulfate 90 mcg/actuation 1 - 2 puff inhalation Q4-6H PRN 08/05/23 10/17/24 Rx aerosol inhaler (ProAir HFA) shortness of breath or wheezing #8.5 grams blood sugar diagnostic (Contour See Rx Instructions .Route 08/31/23 10/17/24 Rx Next Test Strips) .COMPLEX #200 strips insulin syringe-needle U-100 1 mL #200 ea 10/13/23 10/15/24 Rx 27 gauge x 5/8 (BD SafetyGlide Syringe) empagliflozin 25 mg tablet 25 mg PO DAILY #90 tabs 11/15/23 10/17/24 Rx (Jardiance) pen needle, diabetic 29 gauge x See Rx Instructions .Route 03/19/24 10/17/24 Rx 1/2 (BD Ultra-Fine Original Pen .COMPLEX #300 ea Needle) chlorhexidine gluconate 0.12 % 30 ml mucous membrane BID 03/24/24 10/17/24 History mouthwash dulaglutide 3 mg/0.5 mL 3 mg subcut WEEKLY 03/24/24 10/17/24 History subcutaneous pen injector (Trulicity) furosemide 40 mg tablet 40 mg PO DAILY #30 tabs 03/25/24 10/17/24 Rx guaifenesin 600 mg tablet, 1,200 mg (2 x 600 mg) PO Q12HR #14 03/25/24 10/17/24 Rx extended release 12 hr (Mucus tabs Relief ER) benzonatate 200 mg capsule 200 mg PO TID PRN cough #30 caps 04/12/24 10/17/24 Rx albuterol 90 mcg-budesonide 80 2 inh inhalation 6XD PRN shortness 04/17/24 10/17/24 Rx mcg/actuation HFA aerosol inhaler of breath #10.7 grams (Airsupra) metformin 1,000 mg tablet 1,000 mg PO BID #180 tabs 05/11/24 10/17/24 Rx buspirone 5 mg tablet 5 mg PO QHS anxiety #90 tabs 05/14/24 10/17/24 Rx lisinopril 40 mg tablet See Rx Instructions .Route 05/14/24 10/18/24 Rx .COMPLEX #135 tabs metoprolol succinate 100 mg 100 mg PO DAILY #90 tabs 05/14/24 10/18/24 Rx tablet,extended release 24 hr triamterene 37.5 1 tablet PO QAM #90 tabs 05/14/24 10/17/24 Rx mg-hydrochlorothiazide 25 mg tablet atorvastatin 40 mg tablet 40 mg PO QHS #90 tabs 05/25/24 10/17/24 Rx diltiazem HCl 240 mg See Rx Instructions .Route 05/28/24 10/18/24 Rx capsule,extended release 24 hr .COMPLEX #90 caps cyclobenzaprine 10 mg tablet 10 mg PO QHS PRN muscle spasm #30 07/02/24 10/17/24 Rx tabs albuterol sulfate 2.5 mg/3 mL 2.5 mg (3 mL) inhalation Q6H PRN 07/10/24 10/17/24 Rx (0.083 %) solution for nebulization shortness of breath or wheezing #180 mL ipratropium bromide 0.02 % 2.5 ml inhalation Q6H PRN 07/10/24 10/17/24 Rx solution for inhalation shortness of breath or wheezing #150 mL esomeprazole magnesium 40 mg 40 mg PO BID #180 caps 07/16/24 10/18/24 Rx capsule,delayed release (Nexium) dicyclomine 10 mg capsule See Rx Instructions .Route .COMPLEX 10/04/24 10/17/24 History Sedation/Anesthesia: No previous sedation/anesthesia problems (including family history). [facility] Past Medical History Medical History (Updated 10/15/24 @ 10:05 by Cassandra Sargent NP) Seborrheic dermatitis of scalp Elevated troponin Elevated brain natriuretic peptide (BNP) level Acute on chronic diastolic heart failure Acute respiratory failure with hypoxia and hypercapnia Flash pulmonary edema Acute hypoxic respiratory failure Screening for diabetic retinopathy no retinopathy 04/16/2024. Wheezing Cough Anxiety Gas bloat syndrome Acute non-recurrent maxillary sinusitis Inflamed skin tag (~05/31/23) left upper eyelid margin Abdominal pannus large abdominal pannus after 160 lb weight loss GERD with esophagitis EGD 03/02/2023 with mild chronic esophagitis on biopsy. Fall down stairs Left elbow pain COVID-19 (~11/16/22) And March 2024 Neoplasm of skin changing pigmented nevus plantar surface left foot with anticipated biopsy by content producer. Chronic bilateral low back pain with bilateral sciatica x-ray of the lumbar spine on 08/17/2022 reveals severe lumbar spondylosis. Polyp of colon (12/01/20) multiple , 5 tubular adenomas, polyps 12/01/2020 with recheck in 3 years. Chronic neck pain Moderate spondylosis on cervical spine x-ray in urgent care 11/27/2022. Gastro-esophageal reflux disease without esophagitis EGD on 03/02/2023 with biopsy with mild esophagitis and gastropathy. Vitamin B12 deficiency Male erectile dysfunction, unspecified Seasonal allergic rhinitis BMI 37.0-37.9, adult Mixed hyperlipidemia Cholesterol 141, triglycerides 142, HDL 34, LDL 83 with ratio 4.1 on 11/11/2022. Lumbar degenerative disc disease COVID-19 vaccine series completed Aortic stenosis Moderate aortic stenosis with trace aortic regurgitation and grade 1 diastolic dysfunction with ejection fraction 55-60% on echo 08/07/2023. Hypokinesis of the anterior left ventricle. Echo 08/02/2024 with severe aortic stenosis, mild aortic regurgitation and tricuspid regurgitation with grade 1 diastolic dysfunction with ejection fraction 60-65%. Carotid stenosis Erythrocytosis Emphysema lung Lung nodule Tobacco abuse counseling Renal cyst Diabetes Chronic obstructive pulmonary disease Class 3 severe obesity due to excess calories with serious comorbidity and body mass index (BMI) greater than or equal to 70 in adult Patient BMI is down to 37 after losing 160 lb with diet lifestyle modification Essential (primary) hypertension Nocturnal hypoxemia due to emphysema WHITNEY (obstructive sleep apnea) failure on CPAP, treated with weight loss and repeat sleep study demonstrated improvement in obstructive sleep apnea from severe to mild Proteinuria Spinal stenosis, unspecified region other than cervical Tobacco use quit smoking on 08/05/2023. 1-1/2 packs of cigarettes daily Type 2 diabetes mellitus with diabetic peripheral angiopathy and gangrene, with long-term current use of insulin Hemoglobin A1c 5.8 on 10/28/2022. Fasting glucose 101 with hemoglobin A1c 5.5 on 11/11/2022. Hemoglobin A1c 6.5 on 05/14/2024 with normal diabetic foot exam. Surgical History Surgical History History of placement of ear tubes H/O foot surgery No significant past surgical history (~05/2018) lap cholecystectomy left carpal tunnel right carpal tunnel R ear reconstructive surgery Family History Family History Father Diabetes mellitus Heart disease Coronary artery disease Hypertension High cholesterol Mother Family history of chronic obstructive pulmonary disease Cardiac valve prolapse Grandparent Liver cancer paternal grandmother Grandparent Colon cancer paternal grandfather Social History Social History Social History: He lives with his of 37 years. There 35-year-old son still lives with them. They also have a 30-year-old daughter who lives locally. He has been disabled due to a back injury since 2013. He used to smoke 1-1.5 packs of cigarettes per day but quit smoking in August of 2023. He smokes marijuana on a somewhat frequent basis. He denies any significant alcohol use. Code status: Full code Surrogate decision maker: Sabiha () Smoking packs per day: 1 Smoking cigarettes per day: 20.0 Years smoked: 47 Smoking pack-years: 47.00 Smoking status: Former smoker Tobacco type: cigarettes Second hand tobacco smoke exposure: No Smoking end date: 06/05/23 Alcohol intake: former Substance use: current Substance use type: marijuana Other substance usage details: smoking, powder Do You Feel Safe in your Home?: Yes Lack of Transportation: No Lack of Food: Never True Current Housing: I Have Housing Concerned About Future Housing: No Difficulty Paying Gas/Electric Bills: No Difficulty Paying for Meds: YES Currently Unemployed: No Education: Decline to Answer Difficulty w/ Childcare or Family Care: No Living arrangements: with family Additional living arrangements comments: with Gender identity (if verbalized by the patient): Male Spiritual care concerns: No Mod Sed Physical Exam Physical Exam Pre Procedural Exam: Normal: Lungs, Heart Size, Heart Rate and Heart Rhythm Hours since solid foods: 12 Hours since liquid intake: 12 Mallampati Classification: class III Internal Medicine - PN: Obj Da Vital Signs Vital Signs: Vital Signs - 24 hr 10/18/24 07:20 Temperature 36.3 C L Pulse Rate 90 Respiratory Rate 16 Blood Pressure 192/88 H Pulse Oximetry 100 Oxygen Delivery Room Air Labs 10/18/24 07:27 10/18/24 07:27 Labs: Laboratory Results - last 24 hr 10/18/24 07:27 WBC 9.9 RBC 5.31 Hgb 14.7 Hct 45.6 MCV 85.9 MCH 27.7 MCHC 32.2 RDW 14.4 Plt Count 194 MPV 9.3 Immature Gran % (Auto) 1.1 H Neut % (Auto) 75.4 H Lymph % (Auto) 14.2 L [place] % (Auto) 7.5 Eos % (Auto) 1.4 Baso % (Auto) 0.4 Lymph # (Auto) 1.40 [place] # (Auto) 0.7 H Eos # (Auto) 0.1 Baso # (Auto) 0.0 Abs Immat Gran (auto) 0.11 H Absolute Neuts (auto) 7.4 H Absolute Nucleated RBC 0.000 Nucleated RBC % 0.0 Sodium 136 L Potassium 3.8 Chloride 101 Carbon Dioxide 26 Anion Gap 9 BUN 34 H Creatinine 1.05 Estim Creat Clear Calc 80 Estimated GFR > 60 Glucose 114 H Calcium 9.2 ASA Classification/Sedation ASA Classification/Sedation ASA Class: III Emergent: No Risks: Risks, benefits and alternatives explained and patient/family accepted plan for sedation. Patient re-evaluated immediately prior to sedation.
--- NOTE | 2024-10-18 09:40 | P.PCNCC_ITS ---
Cardiac Cath Procedure Note Date of procedure:: 10/18/24 Performing physician:: CATHETERIZATION LABORATORY REPORT Procedure Date:10/18/2024 Referring Physician:Dr. Davenport Anesthesia: Versed and Fentanyl were ordered and given in my presence at 0903, procedure ended at 0934. Supervision of nurse, Lorena Weiss monitored moderate sedation with 2mg Versed and 300mcg Fentanyl was provided for 31 minutes. Pre-op Diagnosis: Severe aortic stenosis Post-op Diagnosis: Severe aortic stenosis Obstructive CAD Procedure(s): Left heart catheterization with coronary angiography Right heart catheterization Right iliofemoral angiogram Angio-Seal Ultrasound guided access Moderate sedation Access Site: Right femoral vein Right common femoral artery Brief History and Clinical Indications: 59-year-old man with diabetes, hypertension, and severe aortic stenosis is referred for right and left heart cardiac catheterization prior to surgical aortic valve replacement. All risks, benefits and alternatives to left heart catheterization with or with out percutaneous coronary intervention was discussed at length with the patient. Risk of complications including but not limited to bleeding, infection, arrhythmia, stroke, worsening kidney function, blood loss, groin hematoma, limb loss, emergency coronary artery bypass grafting, and even were discussed with the patient and all questions were answered. The patient understood and wished to proceed. Time out called, patient name, date of , medical record number, allergies, procedure performed, identify Warping Machine Operator, patient and staff member concurred with accurate data, procedure carried on. Findings: LEFT HEART CATHETERIZATION FINDINGS: 1. Left main: The left main coronary artery has 20% stenosis in the distal segment. 2. Left anterior descending: The LAD gives off 2 diagonal branches in the proximal body. D1 is a small size vessel. D2 is a moderate caliber vessel supplying a significant territory and has 70-80% stenosis in the proximal body. The mLAD has 90-95% focal stenosis. The remainder of the LAD has luminal irregularities. 3. Left circumflex: The left circumflex artery is a large dominant vessel that gives off 1 OM branch. The ostial left circumflex has 20-30% stenosis. OM1 has 10-20% proximal disease. The remainder of the left circumflex has a focal area of 20% stenosis in the distal segment prior to giving off the left PDA which has luminal irregularities and the right PL branch which also has luminal irregul arities. 4. Right coronary artery: The RCA is a small nondominant vessel with no high- grade angiographic stenosis. 5. Left ventricle: No times were made to cross left ventricle. 6. Opening AO pressure 196/80 and closing AO pressure 185/101 7. Right iliofemoral angiogram: The visualized portions in the right external and right common femoral artery are free of angiographic stenosis. The visualized portions of the right profundus has 10-20% stenosis. The visualized portions of the proximal SFA has 20-30% stenosis RIGHT HEART CATHETERIZATION FINDINGS: Pressures (mmHg): RA: 16 (v 20) RV: 61/10 PA: 54/24 (38) PCWP: 27 (v 32) Saturations (%): PA: 63 Arterial: 92.5 CO/CI: Kristy: 4.7/2.1 Description of Procedure: Informed consent signed and placed in the chart. Patient transferred to experimental machining lab manager room. Prepped and draped in usual sterile fashion. 2% lidocaine injected subcutaneously in the right groin area. Right femoral vein was accessed using micropuncture technique under ultrasound and fluoroscopy g uidance and exchanged for 7FR sheath. Right common femoral artery was accessed using micropuncture technique under ultrasound and fluoroscopy guidance and exchanged for 5FR sheath. 7F [place] catheter was advanced into the right side of the heart chambers and pressures were measured. Oximetry was obtained and the [place] catheter was then removed from body. JL4 diagnostic catheter engaged Left Main Coronary Artery. JR4 diagnostic catheter engaged Right Coronary Artery. Multiple orthogonal angiogram obtained and reviewed. Right iliofemoral angiogram was then performed showing adequate access site for closure device. Hydralazine 10 mg IV push x2 was given towards the end of the procedure in anticipation for hemostasis control. Angio-Seal device was deployed in the right common femoral artery. Mynx control device was deployed in right femoral vein. Nifedipine XL 60 mg oral was ordered to be given in recovery if systolic blood pressure remains above 180 mmHg. Assessment: Two vessel obstructive CAD Post Operative Condition: Stable No significant blood loss Disposition:Home Plan: The patient will be monitored in the recovery area. Recommend CABG with the planned [facility]
[2024-10-18] MEDS: SODIUM CHLORIDE 0.9% IV 1,000 ML 125 ML IV CONT (10:00)
--- NOTE | 2024-10-18 14:10 | SUR.PHASEII ---
Dr. Little notified that the patient requests not taking the Nifedipine as his blood pressure is better. Dr. Little said that was fine.
== END 2024-10-18 14:36 | disposition home or self-care (01) ==
PROVIDERS: PCP Family Medicine; Visit Provider Internal Medicine
PROC: 4A023N8 Measurement of Cardiac Sampling and Pressure, Bilateral, Percutaneous Approach (ICD-10-PCS; CPT 93453; principal; 2024-10-18 08:30)
DX: Z01.810 Encounter for preprocedural cardiovascular examination (principal); I35.0 Nonrheumatic aortic (valve) stenosis; I25.10 Atherosclerotic heart disease of native coronary artery without angina pectoris; I10 Essential (primary) hypertension; E11.9 Type 2 diabetes mellitus without complications
CPT/HCPCS: 36415; 80048; 85025; 93460; A9270; C1760; C1769; C1887; C1894; G0269; J0360; J1644; J2003; J2250; J2305; J3010; J7040

== ENCOUNTER 2025-02-13 13:57 | Emergency (ER) | payer OTHER, SELFPAY ==
--- OUTSIDE RECORDS SUMMARY | 2002-09-14 09:45 | XMS_ITS | Continuity of Care Document ---
Author Organization [facility] Address [address] [place] [address] Phone Care Team Providers Care Small Engine Technician Name Role Phone Yuriy Gonzales DO Unavailable Unavailable Advance Directives Directive Yes / No Effective Date File Name No Information Encounters Encounter Description Practice Location Reason(s) For Visit Diagnoses Date Provider Providers Copied on Encounter [facility], [address], [place], [place], [id number], [place] tel:[phone] [facility] No Information Christian Plummer. [address] [facility], [place], [address], [place]. tel:[phone] Family History Family Member Type Diagnosis Age At Onset No Information Payers Payer name Insurance type Covered constitution party ID Authoriza tion(s) No Information Social History Type Description Quantity Date Captured Comments Sex Male Smoking Status No Information Chief Complaint And Reason For Visit No Information Reason For Referral Reason For Referral No Information History Of Present Illness Encounter Date Complaint History Of Prese nt Illness No Information Functional Status Date Functional Assessmen t No Information Instructions Date Instruction Additional Infor mation No Information Assessments Type Assessment Date No Information Patient Care Teams Name Effective Dates (start - stop) Status Members No Information
--- OUTSIDE RECORDS SUMMARY | 2025-02-13 09:23 | XMS_ITS | Encounter Summary ---
Author Organization [facility] Healthcare Address [address] [place] [address] Care Team Providers Care Senior Sales Administrator Name Role Phone Cain Mendoza MD Primary Care Provider [phone] Esteban Fairchild MD Unavailable [phone] Miscellaneous, Not In File Unavailable Unava ilable Reason for Referral * MRI/CAT/PET Scan (Routine) - Closed Specialty Diagnoses / Procedures Referred By Eddie t Referred To Contact Radiology Diagnoses Pleural effusion on left Procedures IR Thoracentesis With Imaging Left CT Guided Thoracentesis Left Niall Villar NP [address] [facility] [id number] [place] [address] Phone: tel: fax: [address] [phone] Referral ID Status Reason Start Date Expiration Date Visits Re quested Visits Authorized [id number] Closed 02/07/2025 03/09/2026 1 1 OR NET APPLICATION DEVELOPER Reason for Visit * MRI/CAT/PET Scan (Routine) - Closed Specialty Diagnoses / Procedures Referred By Contac t Referred To Contact Radiology Diagnoses Pleural effusion on left Procedures IR Thoracentesis With Imaging Left CT Guided Thoracentesis Left Niall Villar NP [address] [facility] [place] [id number] [place] [address] Phone: tel: fax: [address] [phone] Referral ID Status Reason Start Date Expiration Date Visits Re quested Visits Authorized [id number] Closed 02/07/2025 03/09/2026 1 1 Encounter Details Date Type Department Care Team (Latest Contact Info) Description 02/13/2025 9:23 AM SENIOR NET APPLICATION DEVELOPER Hospital Encounter [facility] Imaging and Radiology [address] [place] [address] Pleural effusion on left Social History Tobacco Use Types Packs/Day Years Used Date Smoking Tobacco: Former Cigarettes Smokeless Tobacco: Former Tobacco Cessation:Counseling Given: Not Answered Alcohol Use Standard Drinks/Week Comments Not Currently 0 (1 standard drink = 0.6 oz pur e alcohol) OASIS D0700: Social Isolation Answer Da te Recorded Frequency of experiencing loneliness or isolatio n Never 02/04/2025 OASIS A1250: Transportation Answer Date Recorded Lack of Transportation (Medical) No 02/04/2025 Lack of Transportation (Non-Medical) No 02/04/2025 Patient Unable or Declines to Respond No 02/04/2025 OASIS B1300: Health Literacy Answer Chung e Recorded Frequency of needing help to read materials from doctor or pharmacy Sometimes 02/04/2025 PHQ-2 Answer Date Recorded PHQ-2 Total Score (If total score is 3 or more points, staff should administer the PHQ-9) 0 01/10/2024 PHQ-9 Answer Date Recorded PHQ-9 Total Score 0 01/10/2024 Social Connection and Isolation Panel Answer Date Recorded In a typical week, how many times do you talk on the phone with family, friends, or neighbors? More than three times a week 01/08/2025 How often do you get togethe r with friends or relatives? Three times a week 01/08/2025 How often do you attend chur ch or rastafarian services? Never 01/08/2025 Do you belong to any clubs o r organizations such as christianity groups, unions, fraternal or athletic groups, or school groups? No 01/08/2025 How often do you attend meet ings of the clubs or organizations you belong to? Never 01/08/2025 Are you , , di vorced, , never , or living with a partner? 01/08/2025 AUDIT-C Answer Date Recorded Q1: How often do you have a drink containing alcohol? Never 01/08/2025 Q2: How many drinks containi ng alcohol do you have on a typical day when you are drinking? Patient does not drink Q3: How often do you have si x or more drinks on one occasion? Never 01/08/2025 Overall Financial Resource Strain (CARDIA) Answe r Date Recorded How hard is it for you to pa y for the very basics like food, housing, medical care, and heating? Not hard at all 01/08/2025 Hunger Vital Sign Answer Date Recorded Worried About Running Out of Food in the Last Ye ar Never true 01/08/2025 Within the past 12 months, t he food you bought just didn't last and you didn't have money to get more. Never true 01/08/2025 PRAPARE - Transportation Answer Date Re corded In the past 12 months, has l ack of transportation kept you from medical appointments or from getting medications? No 10/2024 In the past 12 months, has l ack of transportation kept you from meetings, work, or from getting things needed for daily living? No 01/08/2025 Housing Stability Vital Sign Answer Chung e Recorded In the last 12 months, was t here a time when you were not able to pay the mortgage or rent on time? No 01/08/2025 In the past 12 months, how m any times have you moved where you were living? 0 01/08/2025 At any time in the past 12 m [facility], were you homeless or living in a detention (including now)? No 01/08/2025 [facility] Utilities Answer Date Recorded In the past 12 months has [employer], gas, oil, or water [employer] threatened to shut off services in your home? No 01/08/2025 Personal Safety Answer Date Recorded Have you ever been in or are you currently in a harmful physical or emotional relationship or is someone making you feel afraid or unsafe? Denies 01/27/2025 Sex and Gender Information Value Date Recorded Sex Assigned at Not on file Legal Sex Male 12:39 PM SENIOR NET APPLICATION DEVELOPER Gender Identity Not on file Sexual Orientation Straight 01/10/2024 11 :32 AM CDT documented as of this encounter Last Filed Vital Signs Vital Sign Reading Time Taken Comments Blood Pressure 148/70 02/13/2025 11:09 AM SENIOR NET APPLICATION DEVELOPER Pulse 94 02/13/2025 10:42 AM SENIOR NET APPLICATION DEVELOPER Temperature - - Respiratory Rate 24 02/13/2025 11:21 AM SENIOR NET APPLICATION DEVELOPER Oxygen Saturation 98% 02/13/2025 11:21 AM SENIOR NET APPLICATION DEVELOPER Inhaled Oxygen Concentration - - Weight - - Height - - Body Mass Index - - documented in this encounter Functional Status documented as of this encounter Progress Notes * Coral Walden RN - 02/13/2025 11:17 AM CST Patient ambulated slowly 100 feet to BR and 100 feet back without difficulty. O@ sat post walk 96%.Discharge instructions reviewed with patient and , including, self-care and follow-up. Both verbalize understanding of all instructions. All questions addressed. NAD. Will discharge home with . OR NET APPLICATION DEVELOPER * Coral Walden RN - 02/13/2025 10:59 AM CST Patient in recovery post left thoracentesis. VSS. Has c/o pain with inspiration(5:10). Explained topatient and spouse this is normal post procedure(2100 mls removed). 650 mg tylenol PO given. As patient is given meds, states,I think I feel better already, but I'll take the tylenol.NAD. O2 sat 99% on RA. OR NET APPLICATION DEVELOPER documented in this encounter Miscellaneous Notes * Perioperative Nursing Note - Coral Walden RN - 02/13/2025 10:04 AM SENIOR NET APPLICATION DEVELOPER To IR for ordered left thoracentesis. NAD. A&OX4. OR NET APPLICATION DEVELOPER documented in this encounter Plan of Treatment Not on file documented as of this encounter Procedures Procedure Name Priority Date/Time Associated Diagnosis Comments THORACENTESIS W IMAGING LEFT Schedule Routine, Read Routine (OP Routine) 02/13/2025 10:39 AM SENIOR NET APPLICATION DEVELOPER Pleural effusion on left documented in this encounter Results * IR Thoracentesis With Imaging Left (02/13/2025 10:39 AM SENIOR NET APPLICATION DEVELOPER) Anatomical Region Laterality Modality Chest Left X-Ray Angiograph y 02/13/2025 1:31 PM SENIOR NET APPLICATION DEVELOPER Impressions 02/13/2025 1:31 PM SENIOR NET APPLICATION DEVELOPER Ultrasound-guided left thoracentesis. Electronically signed by: Bill Fishman M.D. Narrative 02/13/2025 1:31 PM SENIOR NET APPLICATION DEVELOPER EXAMINATION: IR THORACENTESIS W IMAGING LEFT DATE: 02/13/2025 10:00 HISTORY: Left pleural effusion Moderate left pleural effusion TECHNIQUE: The risks, benefits, and alternatives were discussed and informed consent was obtained. Prior to beginning the procedure, universal protocol was performed to confirm the patient's identity and the planned procedure. Maximum sterile barriers including cap, mask, hand hygiene, sterile gloves, sterile drape, and 2% chlorhexidine for cutaneous antisepsis were used. Limited ultrasound images demonstrate a pleural effusion. The skin overlying the effusion was marked. The patient's left posterior chest wall was prepped and draped. Lidocaine was used to anesthetize the skin and subcutaneous tissues. Under ultrasound guidance, a one-step needle was advanced into the pleural effusion. 2100 ml of fluid was aspirated. At the end of the procedure, the catheter was removed, manual pressure was held to achieve hemostasis, and a sterile dressing was applied. The patient tolerated the procedure well and without complications. Procedure Note Bill Fishman MD - 02/13/2025 EXAMINATION: IR THORACENTESIS W IMAGING LEFT DATE: 02/13/2025 10:00 HISTORY: Left pleural effusion Moderate left pleural effusion TECHNIQUE: The risks, benefits, and alternatives were discussed and informed consent was obtained. Prior to beginning the procedure, universal protocol was performed to confirm the patient's identity and the planned procedure. Maximum sterile barriers including cap, mask, hand hygiene, sterile gloves, sterile drape, and 2% chlorhexidine for cutaneous antisepsis were used. Limited ultrasound images demonstrate a pleural effusion. The skin overlying the effusion was marked. The patient's left posterior chest wall was prepped and draped. Lidocaine was used to anesthetize the skin and subcutaneous tissues. Under ultrasound guidance, a one-step needle was advanced into the pleural effusion. 2100 ml of fluid was aspirated. At the end of the procedure, the catheter was removed, manual pressure was held to achieve hemostasis, and a sterile dressing was applied. The patient tolerated the procedure well and without complications. IMPRESSION: Ultrasound-guided left thoracentesis. Electronically signed by: Bill Fishman M.D. us Niall Villar EARLY CHILDHOOD AIDE CLASSROOM IMG IR PROCEDURES Final Res ult documented in this encounter Visit Diagnoses Diagnosis Pleural effusion on left Unspecified pleural effusion documented in this encounter Administered Medications Active Administered Medications - up to 3 most recent administrations Medication Order MAR Action Action Date Dose Rate Site acetaminophen (TYLENOL) tablet 650 mg 650 mg, oral, Every 6 hours PRN, fever, Starting on Tue02/13/25 at 1050 Given 02/13/2025 10:53 AM SENIOR NET APPLICATION DEVELOPER 325 mg Inactive Administered Medications - up to 3 most recent administrations Medication Order MAR Action Action Date Dose Rate Site lidocaine (PF) (XYLOCAINE) 10 mg/mL (1 %) preservative free injection As needed, Starting on Tue02/13/25 at 1026, Intra-Procedure (IR), Indications: Administration of Local AnesthesiaIndications:Administrati on of Local Anesthesia Given 02/13/2025 10:26 AM SENIOR NET APPLICATION DEVELOPER 10 mL documented in this encounter Historical Medications * This list may reflect changes made after this encounter. spironolactone (ALDACTONE) 25 mg tablet Take 1 tablet (25 mg total) by mouth daily added in this encounter Care Teams Senior Sales Administrator Relationship Specialty Start Date End Date Cain Mendoza MD [address] [address] PCP - General 02/03/11 [place] [address] [facility] [address] [address] Surgeon Cardiothoracic Surgery 01/14/25 Miscellaneous, Not In File 01/14/25 documented as of this encounter
--- NOTE | 2025-02-13 14:45 | ED.CPR ---
HPI - CPR General Chief Complaint: Cardiac Arrest/CPR Stated Complaint: resp. distress Time Seen by Provider: 02/13/25 14:41 History of Present Illness HPI narrative: Pt had thoracentesis earlier in the day and felt fine initially. Pt tehn felt lightheaded and SOB and called 911. Pt arrested in route as arriving to ER. CPR initiated as patient wheeled into room. Related Data Home Medications ?Medication ?Instructions ?Recorded ?Confirmed ?Last Taken ?Type aspirin 81 mg tablet,delayed 81 mg PO DAILY 05/27/20 02/12/25 10/18/24 History release cholecalciferol (vitamin D3) 125 5,000 unit PO DAILY 05/05/22 02/12/25 10/17/24 History mcg (5,000 unit) capsule cyanocobalamin (vitamin B-12) 1,000 mcg PO DAILY 05/05/22 02/12/25 10/17/24 History 1,000 mcg tablet (Vitamin B-12) fluticasone propionate 50 50 mcg intranasal DAILY 01/12/23 02/12/25 10/17/24 History mcg/actuation nasal spray,suspension chlorhexidine gluconate 0.12 % 30 ml mucous membrane BID 03/24/24 02/12/25 10/17/24 History mouthwash SS insulin subcut 01/18/25 02/12/25 Unknown History acetaminophen 500 mg capsule 500 mg PO Q6H PRN 01/18/25 02/12/25 Unknown History clopidogrel 75 mg tablet (Plavix) 75 mg PO DAILY 01/18/25 02/12/25 Unknown History dulaglutide 4.5 mg/0.5 mL 4.5 mg subcut WEEKLY 01/18/25 02/12/25 Unknown History subcutaneous pen injector (Trulicity) empagliflozin 25 mg tablet 25 mg PO DAILY 01/18/25 02/12/25 Unknown History (Jardiance) furosemide 40 mg tablet (Lasix) 40 mg PO QAM 01/18/25 02/12/25 Unknown History insulin glargine U-300 conc 300 18 unit subcut DAILY 01/18/25 02/12/25 Unknown History unit/mL (1.5 mL) subcutaneous pen (Toujeo SoloStar U-300 Insulin) insulin glargine U-300 conc 300 30 unit subcut DAILY 01/18/25 02/12/25 Unknown History unit/mL (1.5 mL) subcutaneous pen ([employer] SoloStar U-300 Insulin) metoprolol tartrate 25 mg tablet 25 mg PO BID 01/18/25 02/12/25 Unknown History oxycodone 5 mg tablet 5 mg PO Q6H PRN 01/18/25 02/12/25 Unknown History sennosides 8.6 mg-docusate sodium 1 tab-cap PO BID PRN 01/18/25 02/12/25 Unknown History 50 mg tablet (Senna with Docusate Sodium) simethicone 180 mg capsule 180 mg PO DAILY 01/18/25 02/12/25 Unknown History methocarbamol 500 mg tablet 500 mg PO TID PRN 01/21/25 02/12/25 Unknown History lisinopril 20 mg tablet 20 mg PO DAILY 02/12/25 02/12/25 Unknown History vitamins A,C,P-uuyt-snsufx 4,296 1 cap PO BID 02/12/25 02/12/25 Unknown History mcg-226 mg-90 mg capsule (PreserVision AREDS) Allergies Allergy/AdvReac Type Severity Reaction Status Date / Time erythromycin base AdvReac Intermediate Gastrointestinal Verified 01/21/25 15:16 Upset tetracycline AdvReac Intermediate Gastrointestinal Verified 01/21/25 15:16 Upset Penicillins AdvReac Mild Hives Verified 01/21/25 15:16 Review of Systems Review of Systems: ROS unobtainable: Yes unobtainable due to medical condition PMFSH Past Medical History Medical History Dysuria Atherosclerotic heart disease of [place] coronary artery without angina pectoris cardiac catheterization 10/18/2024 with 70-80% obstruction D2 of the LAD and 90-95% stenosis of the mid LAD with 20-30% lesion of the circumflex and 20% left main on 10/18/2024. CABG x2 vessels 01/07/2025. Seborrheic dermatitis of scalp Elevated troponin Elevated brain natriuretic peptide (BNP) level Acute on chronic diastolic heart failure Acute respiratory failure with hypoxia and hypercapnia Flash pulmonary edema Acute hypoxic respiratory failure Screening for diabetic retinopathy no retinopathy 04/16/2024. Wheezing Cough Anxiety Gas bloat syndrome Acute non-recurrent maxillary sinusitis Inflamed skin tag (~05/31/23) left upper eyelid margin Abdominal pannus large abdominal pannus after 160 lb weight loss GERD with esophagitis EGD 03/02/2023 with mild chronic esophagitis on biopsy. Fall down stairs Left elbow pain COVID-19 (~11/16/22) And March 2024 Neoplasm of skin changing pigmented nevus plantar surface left foot with anticipated biopsy by bag maker. Chronic bilateral low back pain with bilateral sciatica x-ray of the lumbar spine on 08/17/2022 reveals severe lumbar spondylosis. Polyp of colon (12/01/20) multiple , 5 tubular adenomas, polyps 12/01/2020 with recheck in 3 years. Chronic neck pain Moderate spondylosis on cervical spine x-ray in urgent care 11/27/2022. Gastro-esophageal reflux disease without esophagitis EGD on 03/02/2023 with biopsy with mild esophagitis and gastropathy. Vitamin B12 deficiency Male erectile dysfunction, unspecified Seasonal allergic rhinitis BMI 37.0-37.9, adult Mixed hyperlipidemia Cholesterol 141, triglycerides 142, HDL 34, LDL 83 with ratio 4.1 on 11/11/2022. Lumbar degenerative disc disease COVID-19 vaccine series completed Aortic stenosis Aortic valve replacement 01/07/2025. Moderate aortic stenosis with trace aortic regurgitation and grade 1 diastolic dysfunction with ejection fraction 55-60% on echo 08/07/2023. Hypokinesis of the anterior left ventricle. Echo 08/02/2024 with severe aortic stenosis, mild aortic regurgitation and tricuspid regurgitation with grade 1 diastolic dysfunction with ejection fraction 60-65%. Aortic stenosis severe. Carotid stenosis Erythrocytosis Emphysema lung Lung nodule Tobacco abuse counseling Renal cyst Diabetes Chronic obstructive pulmonary disease Class 3 severe obesity due to excess calories with serious comorbidity and body mass index (BMI) greater than or equal to 70 in adult Patient BMI is down to 37 after losing 160 lb with diet lifestyle modification Essential (primary) hypertension Nocturnal hypoxemia due to emphysema WHITNEY (obstructive sleep apnea) failure on CPAP, treated with weight loss and repeat sleep study demonstrated improvement in obstructive sleep apnea from severe to mild Proteinuria Spinal stenosis, unspecified region other than cervical Tobacco use quit smoking on 08/05/2023. 1-1/2 packs of cigarettes daily Type 2 diabetes mellitus with diabetic peripheral angiopathy and gangrene, with long-term current use of insulin Hemoglobin A1c 5.8 on 10/28/2022. Fasting glucose 101 with hemoglobin A1c 5.5 on 11/11/2022. Hemoglobin A1c 6.5 on 05/14/2024 with normal diabetic foot exam. Surgical History Surgical History History of heart bypass surgery triple bypass-Jan 07, 2025 Aortic valve replaced Jan 07, 2025 History of placement of ear tubes H/O foot surgery No significant past surgical history (~05/2018) lap cholecystectomy left carpal tunnel right carpal tunnel R ear reconstructive surgery Family History Family History Father Diabetes mellitus Heart disease Coronary artery disease Hypertension High cholesterol Mother Family history of chronic obstructive pulmonary disease Cardiac valve prolapse Grandparent Liver cancer paternal grandmother Grandparent Colon cancer paternal grandfather Social History Social History Social History: He lives with his of 37 years. There 35-year-old son still lives with them. They also have a 30-year-old daughter who lives locally. He has been disabled due to a back injury since 2013. He used to smoke 1-1.5 packs of cigarettes per day but quit smoking in August of 2023. He smokes marijuana on a somewhat frequent basis. He denies any significant alcohol use. Code status: Full code Surrogate decision maker: Sabiha () Smoking packs per day: 1 Smoking cigarettes per day: 20.0 Years smoked: 47 Smoking pack-years: 47.00 Tobacco type: cigarettes Second hand tobacco smoke exposure: No Smoking end date: 06/05/23 Alcohol intake: former Substance use: current Substance use type: marijuana Other substance usage details: smoking, powder Do You Feel Safe in your Home?: Yes Lack of Transportation: No Lack of Food: Never True Current Housing: I Have Housing Concerned About Future Housing: No Difficulty Paying Gas/Electric Bills: No Difficulty Paying for Meds: YES Currently Unemployed: No Education: Decline to Answer Difficulty w/ Childcare or Family Care: No Living arrangements: with family Additional living arrangements comments: with Gender identity (if verbalized by the patient): Male Spiritual care concerns: No Exam Const: Limitations: other limitations (unresponsive) Resp: Auscultation: breath sounds absent (left) Cardio: Other: no pulse or heart sounds GI: Inspection: distended Skin: General skin exam: pallor (mottled) Neuro: Other: unresponsive Course Course Emergency Course: Dr Nevarez and myself in room both running code. Pt intubated by Dr Nevarez using glide scope. intubated with 7.5 ETT 23 cm at lips with color change.No breath sounds on left. Needle decompression attempted 2nd intercostal space without air montiel or result. Pt prepped for emergent chest tube placement. 4th IC space ant axillary line skin incision made through adipose tissue with #15 blade, chest entered using straight hemostat and chest cavity entered over rib, 32F chest tube inserted, large amount of blood poured out of chest onto cart and floor. Tube sutured into place and secured and hooked to pleurovac with blood entering device. Pt mostly PEA so numerous rounds of epi given. Pt had brief run of v fib and shocked twice. Pt given amiodarone bolus. Pt returned to PEA and bedside sono showed no cardiac activity. CPR continued and epi given untilo Dr Nevarez talked with family who requested effort be ceased. Code called at 1432. Dr Navas contacted and will sign certificate. For details of code please see code sheet. MDM - Cardiac Arrest/CPR MDM Narrative Medical decision making narrative: see code note Critical Care Time Critical Care Time Critical Care Time: Yes Total Critical Care Time: 35 Discharge Plan Discharge Clinical Impression: Cardiac arrest, Hemothorax on left Patient Disposition: Condition: Patient Language: Croatian Prescriptions: No Action cyanocobalamin (vitamin B-12) [Vitamin B-12] 1,000 mcg tablet 1,000 mcg PO DAILY cholecalciferol (vitamin D3) 125 mcg (5,000 unit) capsule 5,000 unit PO DAILY furosemide [Lasix] 40 mg tablet 40 mg PO QAM simethicone 180 mg capsule 180 mg PO DAILY clopidogrel [Plavix] 75 mg tablet 75 mg PO DAILY acetaminophen 500 mg capsule 500 mg PO Q6H PRN oxycodone 5 mg tablet 5 mg PO Q6H PRN Jardiance 25 mg tablet 25 mg PO DAILY insulin glargine U-300 conc [Toujeo SoloStar U-300 Insulin] 300 unit/mL (1.5 mL) insulin pen 30 unit subcut DAILY Trulicity 4.5 mg/0.5 mL pen injector 4.5 mg subcut WEEKLY metoprolol tartrate 25 mg tablet 25 mg PO BID sennosides-docusate sodium [Senna with Docusate Sodium] 8.6-50 mg tablet 1 tab-cap PO BID PRN insulin glargine U-300 conc [Toujeo SoloStar U-300 Insulin] 300 unit/mL (1.5 mL) insulin pen 18 unit subcut DAILY Rx Instructions: INJECT 30 UNITS SUBCUTANEOUSLY DAILY SS insulin subcut methocarbamol 500 mg tablet 500 mg PO TID PRN fluticasone propionate 50 mcg/actuation spray,suspension 50 mcg intranasal DAILY PreserVision AREDS 4,296 mcg-226 mg-90 mg capsule 1 cap PO BID lisinopril 20 mg tablet 20 mg PO DAILY spironolactone 25 mg tablet 25 mg PO DAILY Qty: 30 5RF aspirin 81 mg Tablet,Delayed Release (Dr/Ec) 81 mg PO DAILY chlorhexidine gluconate 0.12 % mouthwash 30 ml mucous membrane BID Rx Instructions: x15 days , started 03/21 Contour Next Test Strips Strip See Rx Instructions .ROUTE .COMPLEX Qty: 200 11RF Dose Instruction: USE TO CHECK BLOOD SUGAR 3 TIMES DAILY Rx Instructions: USE TO CHECK BLOOD SUGAR 3 TIMES DAILY (DME) BD SafetyGlide Syringe 1 mL 27 gauge x 5/8 syringe See Rx Instructions .Route Qty: 200 11RF Rx Instructions: use 6 times daily with insulin pen needle, diabetic [BD Ultra-Fine Orig Pen Needle] 29 gauge x 1/2 needle See Rx Instructions .ROUTE .COMPLEX Qty: 300 3RF Dose Instruction: USE 1 PEN NEEDLE FOUR TIMES DAILY WITH INSULIN PEN Rx Instructions: USE 1 PEN NEEDLE FOUR TIMES DAILY WITH INSULIN PEN metformin 1,000 mg tablet 1,000 mg PO BID Qty: 180 3RF atorvastatin 40 mg tablet 40 mg PO QHS Qty: 90 3RF albuterol sulfate 2.5 mg /3 mL (0.083 %) solution for nebulization 2.5 mg inhalation Q6H PRN (Reason: shortness of breath or wheezing) Qty: 180 3RF ipratropium bromide 0.02 % solution 2.5 ml inhalation Q6H PRN (Reason: shortness of breath or wheezing) Qty: 150 3RF esomeprazole magnesium [Nexium] 40 mg capsule,delayed release(DR/EC) 40 mg PO BID Qty: 180 2RF albuterol sulfate [ProAir HFA] 90 mcg/actuation HFA aerosol inhaler 1 - 2 puff INHALATION Q4-6H PRN (Reason: shortness of breath or wheezing) Qty: 8.5 11RF furosemide 40 mg tablet 40 mg PO DAILY Qty: 30 11RF buspirone 7.5 mg tablet 7.5 mg PO BID Qty: 60 5RF levofloxacin 500 mg tablet 500 mg PO DAILY Qty: 7 0RF Follow-up/Referrals: Cain Mendoza MD [Primary Care Provider, Family Practice]
--- OUTSIDE RECORDS SUMMARY | 2025-02-13 15:26 | XMS_ITS | Clinical Summary ---
Author Organization [facility] Address [address] [place] [phone] Phone Care Team Providers Care Beekeeper Name Role Phone Julio Puentes MD Primary Care Provider [phone] Allergies Active Allergy Reactions Criticality Noted Date [...] 3 TIMES DAILY 0 Active UltiCare Pen [place] 29G X 12.7MM misc USE 1 PEN [...] 2024 Insurance [employer] H[employer] Care Teams Beekeeper Relationship Specialty Start Date End Date Julio Puentes MD [address] [place] [phone] PCP - General Family Medicine 10/02/18
--- OUTSIDE RECORDS SUMMARY | 2025-02-13 15:26 | XMS_ITS | Encounter Summary ---
Author Organization [facility] Address 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 Gender Identity Not on file Sexual Orientation Not on file documented as of this encounter Plan of Treatment Upcoming Encounters Date Type Department Care Team (Late st Contact Info) Description 08/30/2025 8:30 AM CDT Office Visit [facility] Oncology and Hematology - [place] [address] [facility] [address] [place] [address] Lewis Stanley MD [address] [facility] [address] [place] [address] documented as of this encounter Visit Diagnoses Not on filedocumented in this encounter Care Teams Insurance Customer Service Specialist Relationship Specialty Start Date End Date Cain Mendoza MD [facility] [place] [phone] PCP - General Family Practice 12/17/22 documented as of this encounter
--- OUTSIDE RECORDS SUMMARY | 2025-02-13 15:26 | XMS_ITS | Clinical Summary ---
Author Organization [facility] Address [address] [place] [address] Care Team Providers Care Recovery Advocate Name Role Phone Cain Mendoza MD Primary Care Provider [phone] Allergies Active Allergy Reactions Criticality Noted Date [...] 9 Active fluticasone propionate (FLONASE) 50 mcg/spray [place], Suspension nasal inhaler Administer 1 [place] in each nostril. 9 Active ibuprofen (MOTRIN) [...] Take 100 mg by mouth. 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 Gender Identity Not on file Sexual Orientation [...] Description 08/30/2025 8:30 AM CDT Office Visit [facility] Oncology and Hematology [facility] [address] [facility] [address] [place] [address] Lewis Stanley MD [address] [facility] [address] [place] [address] Health Maintenance Due Date Last Done Comments DIABETES ANNUAL RETINAL EXAM 08/18/1981 DIABETES MICROALBUMIN ANNUAL SCREEN 08/18/1981 LDL CHOLESTEROL ANNUAL 08/18/1981 COLORECTAL SCREENING 08/18/2008 Colorectal Cancer Screening 08/18/2008 FIT-DNA Q 3 years 08/18/2008 FIT/FOBT Q 1 year 08/18/2008 Flex Sig/CT Colonography Q 5 years 08/18/2008 Lung Cancer Screening 08/18/2013 RSV VACCINE (60+ or ) (1 - Risk 50-74 years 1-dose series) 08/18/2013 ZOSTER VACCINE (1 of 2) 08/18/2013 INFLUENZA VACCINE (#1) 2024 DIABETES HBA1C Q 6 MONTHS 11/11/20242024, 09/14/2023, 06/02/2023, Additional history exists DIABETES ANNUAL FOOT EXAM 05/14/2025 05/14/2024 DTAP/TDAP/TD VACCINES (2 - T d or Tdap) 10/06/2031 10/05/2021 Insurance [facility] Care Teams Recovery Advocate Relationship Specialty Start Date End Date Cain Mendoza MD [facility] [place] [phone] PCP - General Family Practice 12/17/22
--- OUTSIDE RECORDS SUMMARY | 2025-02-13 15:26 | XMS_ITS | Encounter Summary ---
Author Organization [facility] Address [address] [place] [address] Care Team Providers Care Wash Driller Name Role Phone Cain Mendoza MD Primary Care Provider [phone] Esteban Fairchild MD Unavailable [phone] Miscellaneous, Not In File Unavailable Unava ilable Encounter Details Date Type Department Care Team (Late st Contact Info) Description 02/12/2025 Telephone [facility] Imaging and Radiology [address] [place] [address] Bill Fishman MD [address] [facility] [address] [place], [place] [id number] Social History Tobacco Use Types Packs/Day Years Used Date Smoking Tobacco: Former Cigarettes Smokeless Tobacco: Former Alcohol Use Standard Drinks/Week Comments Not Currently [...] often do you attend chur ch or yazidism services? Never 01/08/2025 Do you belong to any clubs o r organizations such as pentecostal groups, unions, fraternal or athletic groups, or [...] any time in the past 12 m [facility], were you homeless or living in a group home (including now)? No 01/08/2025 [facility] Utilities Answer Date Recorded In the past 12 months has th e electric, gas, oil, or water company threatened to shut off services in your home? No 01/08/2025 Personal Safety Answer Date Recorded Have you ever been in or are you currently in a harmful physical or emotional relationship or is someone making you feel afraid or unsafe? 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 Appt became available tomorrow - ok per Sean. Went over the following with Bill: [facility] 1632. He stated his dr prescribed Spironolactone - he has not started yet. Bring photo ID and insurance card/s. Bill verbalized understanding of appt instructions. TH PLAN ADVISOR documented in this encounter Plan of Treatment Not on file documented as of this encounter Visit Diagnoses Not on filedocumented in this encounter Care Teams Wash Driller Relationship Specialty Start Date End Date Cain Mendoza MD [address] [address] PCP - General 02/03/11 [place] [address] [facility] [address] [place] [address] Surgeon Cardiothoracic Surgery 01/14/25 Miscellaneous, Not In File 01/14/25 documented as of this encounter
--- OUTSIDE RECORDS SUMMARY | 2025-02-13 15:26 | XMS_ITS | Encounter Summary ---
Author Organization [facility] Address 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 Oncology and Hematology - [place] [address] [facility] [address] [place] [address] Lewis Stanley MD [address] [facility] [address] [place] [address] documented as of this encounter Visit Diagnoses Diagnosis Pain in limb- Primary documented in this encounter Care Teams Application Developer Relationship Specialty Start Date End Date Cain Mendoza MD [address] [place] [phone] PCP - General Family Practice 12/17/22 documented as of this encounter
--- OUTSIDE RECORDS SUMMARY | 2025-02-13 15:26 | XMS_ITS | Encounter Summary ---
Author Organization [facility] Address 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 Gender Identity Not on file Sexual Orientation Not on file documented as of this encounter Plan of Treatment Upcoming Encounters Date Type Department Care Team (Late st Contact Info) Description 08/30/2025 8:30 AM CDT Office Visit [facility] Oncology and Hematology - [place] [address] [facility] [address] [place] [address] Lewis Stanley MD [address] [facility] [address] [place] [address] documented as of this encounter Visit Diagnoses Not on filedocumented in this encounter Care Teams Furnace Attendant Relationship Specialty Start Date End Date Cain Mendoza MD [address] [place] [phone] PCP - General Family Practice 12/17/22 documented as of this encounter
--- OUTSIDE RECORDS SUMMARY | 2025-02-13 15:26 | XMS_ITS | Clinical Summary ---
Author Organization [facility] Address [address] [facility] [place] [address] Care Team Providers Care Occupational Health Physiotherapist Name Role Phone Julio Puentes MD Primary Care Provider [phone] Source Comments [facility],non-owned Affiliates and Associated Physician Practices is amultiple site organization consisting of ambulatory clinics and hospital sitesin [place], [place], [place] and [place]. This disclosure is being madepursuant to the Care Everywhere program and may not contain all information available regarding this patient. 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 Member ID:Not on file Relation to Subscriber:Not on file Name:CARI LAM Subscriber ID:Not on file (Home) Address: [address] [place] [address] Payer ID:Not on file Group ID:Not on file Type:Self Pay Address: [place], [place] Care Teams Occupational Health Physiotherapist Relationship Specialty Start Date End Date Julio Puentes MD [address] [place] [address] PCP - General Internal Medicine 02/23/19
--- OUTSIDE RECORDS SUMMARY | 2025-02-13 15:26 | XMS_ITS | Encounter Summary ---
Author Organization [facility] Address 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 Gender Identity Not on file Sexual Orientation Not on file documented as of this encounter Plan of Treatment Upcoming Encounters Date Type Department Care Team (Late st Contact Info) Description 08/30/2025 8:30 AM CDT Office Visit [facility] Oncology and Hematology - [place] [address] [facility] [address] [place] [address] Lewis Stanley MD [address] [facility] [address] [place] [address] documented as of this encounter Visit Diagnoses Not on filedocumented in this encounter Care Teams Sack Repairer Relationship Specialty Start Date End Date Cain Mendoza MD [address] [place] [phone] PCP - General Family Practice 12/17/22 documented as of this encounter
--- OUTSIDE RECORDS SUMMARY | 2025-02-13 15:26 | XMS_ITS | Clinical Summary ---
Author Organization [facility] [facility] tt Address [address] [facility] [place] [address] Care Team Providers Care Senior Information Systems Architect Name Role Phone Cain Mendoza MD Primary Care Provider [phone] Esteban Fairchild MD Unavailable [phone] Miscellaneous, Not In File Unavailable Unava ilable Allergies Active Allergy Reactions Criticality Noted Date Comments Erythromycin Other (See comments) Low 10/02/2018 Penicillamine Unknown 03/05/2019 Penicillins Rash,Hives Medium 10/02/2018 Tetracycline Other (See comments),Stomach upset High 10/02/2018 Medications albuterol HFA (PROVENTIL HFA,VENTOLIN HFA,PROAIR HFA) 90 mcg/actuation inhaler Inhale 2 puffs every 6 hours as needed Active aspirin (ASPIR-81) 81 mg enteric coated tablet Take 1 tablet (81 mg total) by mouth every morning Active atorvastatin (LIPITOR) 40 mg tablet Take 1 tablet (40 mg total) by mouth nightly 01/05/20 19 Active metFORMIN (GLUCOPHAGE) 1,000 mg tablet Take 1 tablet (1,000 mg total) by mouth 2 (two) times a day with meals Active SURE COMFORT INSULIN SYRINGE 1 mL 29 gauge x 1/2 syringe 12/12/19 19 Active fluticasone propionate (FLONASE) 50 mcg/actuation nasal sprayIndicatio ns:Chronic seasonal allergic rhinitis Administer 1 spray into each nostril daily 16 g 3 03/05/20 19 Active cholecalcifero l (VITAMIN D-3) 5,000 unit capsule Take 1 capsule (5,000 Units total) by mouth every morning Active BD Ultra-Fine Orig Pen Needle 29 gauge x 1/2 needle USE 1 PEN NEEDLE FOUR TIMES DAILY WITH INSULIN PEN Active busPIRone (BUSPAR) 5 mg tabletIndicati ons:Generalize d Anxiety Disorder Take 1.5 tablets (7.5 mg total) by mouth 2 (two) times a day 08/12/19 24 Active dulaglutide (Trulicity) 4.5 mg/0.5 mL pen injector Inject 0.5 mL (4.5 mg total) under the skin every 7 days 2 mL 3 01/11/20 24 Active blood-glucose meter miscIndication s:Type 2 diabetes mellitus with diabetic peripheral angiopathy with gangrene, unspecified whether watermaster insulin use (HCC) One touch Ultra Meter Check blood sugar twice daily Dx: E11.52 1 each 04/27/[address] (NexIUM) 40 mg capsule Take 1 capsule (40 mg total) by mouth 2 (two) times a day 04/25/19 25 Active ipratropium (ATROVENT) 0.02 % nebulizer solution INHALE 2.[address] OF NEBULIZER EVERY 6 HOURS NEEDED FOR SHORTNESS OF BREATH OR WHEEZING 07/11/19 25 Active albuterol 2.5 mg /3 mL (0.083 %) nebulizer solutionIndica tions:Acute Asthma Attack INHALE 2.5 MG (3 ML) BY WAY OF NEBULIZER EVERY 6 HOURS NEEDED FOR SHORTNESS OF BREATH OR WHEEZING 07/11/19 25 Active blood glucose diagnostic stripIndicatio ns:Type 2 diabetes mellitus with diabetic peripheral angiopathy with gangrene, unspecified whether watermaster insulin use (HCC) One Touch Ultra Test Strips Check blood sugar four times daily daily Dx: E11.52 200 strip 11 09/18/19 25 Active TOUJEO 300 unit/mL (1.5 mL) pen for injection Inject 24 Units under the skin every morning 9 mL 10/05/19 25 Active Jardiance 25 mg tabletIndicati ons:Type 2 diabetes mellitus with diabetic peripheral angiopathy with gangrene, unspecified whether penitentiary insulin use (HCC) TAKE ONE TABLET BY MOUTH DAILY 90 tablet 2 10/31/19 25 Active cyanocobalamin (Vitamin B-12) 1,000 mcg tabletIndicati ons:Prevention of Vitamin B12 Deficiency Take 1 tablet (1,000 mcg total) by mouth every morning Active simethicone (GAS-X) 180 mg capsule Take 1 capsule (180 mg total) by mouth every 6 (six) hours as needed for flatulence Active acetaminophen 500 mg capsuleIndicat ions:Fever,Tony n Take 2 capsules (1,000 mg total) by mouth every 6 (six) hours as needed for pain 01/15/20 Active clopidogreL (PLAVIX) 75 mg tabletIndicati ons:Acute Coronary Syndrome Take 1 tablet (75 mg total) by mouth daily 30 tablet 1 01/16/20 25 025 Active furosemide (LASIX) 40 mg tablet Take 1 tablet (40 mg total) by mouth daily for 7 days 7 tablet 01/16/20 Active potassium chloride ER (KLOR-CON) 20 mEq CR tablet Take 1 tablet (20 mEq total) by mouth daily for 7 days 7 tablet 01/16/20 Active senna-docusate (PERICOLACE) 8.6-50 mgIndications: constipation Take 1 tablet by mouth 2 (two) times a day as needed for constipation 60 tablet 01/15/20 Active Additional Information Patient not taking.Reported on 02/07/2025 oxyCODONE (ROXICODONE) 5 mg immediate release tabletIndicati ons:Pain Take 1 tablet (5 mg total) by mouth every 4 (four) hours as needed for pain 18 tablet 01/15/20 Active Additional Information Patient not taking.Reported on 02/07/2025 blood glucose control, high solutionIndica tions:Type 2 diabetes mellitus with hyperglycemia, with long-term current use of insulin (HCC) Use every time a new bottle of test strips are opened. 1 each 3 01/18/20 Active blood glucose control, low solutionIndica tions:Type 2 diabetes mellitus with hyperglycemia, with long-term current use of insulin (HCC) Use every time a new bottle of test strips are opened. 1 each 3 01/18/20 Active metOLazone (ZAROXOLYN) 5 mg tablet Take 1 tablet (5 mg total) by mouth daily for 3 days 3 tablet 01/31/20 Active Additional Information Patient not taking.Reported on 02/07/2025 potassium chloride ER (KLOR-CON) 20 mEq CR tablet Take 1 tablet (20 mEq total) by mouth daily 30 tablet 01/31/20 25 Active metoprolol tartrate (LOPRESSOR) 25 mg immediate release tablet TAKE 1 TABLET BY MOUTH TWICE A DAY 180 tablet 1 02/06/20 25 Active spironolactone (ALDACTONE) 25 mg tablet Take 1 tablet (25 mg total) by mouth daily Active methocarbamoL (ROBAXIN) 500 mg tablet Take 1 tablet (500 mg total) by mouth 3 (three) times a day as needed for muscle spasms for up to 7 days 21 tablet 01/15/20 25 025 metoprolol tartrate (LOPRESSOR) 25 mg immediate release tablet Take 1 tablet (25 mg total) by mouth 2 (two) times a day 60 tablet 1 01/15/20 25 025 Discontinued Active Problems Problem Noted Date Diagnosed Date Aortic stenosis, severe 01/07/2025 Chronic kidney disease, stage 3a 12/27/2024 Overview (12/27/2024): BUN 35, creatinine 1.45 with GFR 55 on 05/02/2024. Dysphagia 12/27/2024 Secondary polycythemia 12/27/2024 Overview (12/27/2024): Hemoglobin normal at 15.6 on 11/11/2022. GERD with esophagitis 12/27/2024 Overview (12/27/2024): EGD 03/02/2023 with mild chronic esophagitis on biopsy. Lumbar degenerative disc disease 12/27/2024 Nephrotic syndrome 12/27/2024 Overview (12/27/2024): 3+ protein on urinalysis 11/11/2022. Low serum protein 5.3 on 11/11/2022. WHITNEY (obstructive sleep apnea) 12/27/2024 Overview (12/27/2024): failure on CPAP, treated with weight loss and repeat sleep study demonstrated improvement in obstructive sleep apnea from severe to mild PAD (peripheral artery disease) 12/27/2024 Stasis dermatitis of both legs 12/27/2024 Overview (12/27/2024): venous Doppler study of the left lower extremity was negative for DVT 09/29/2022. Obesity (BMI 30-39.9) 12/27/2024 Non-STEMI (non-ST elevated myocardial infarction ) 12/27/2024 Lung nodule 12/27/2024 Chronic bilateral low back pain with bilateral s ciatica 12/27/2024 Overview (12/27/2024): x-ray of the lumbar spine on 08/17/2022 reveals severe lumbar spondylosis. Carotid stenosis 12/27/2024 Chronic obstructive pulmonary disease 12/27/2024 Anxiety 12/27/2024 Aortic valve stenosis 11/28/2024 Hypertension associated with type 2 diabetes deedee litus 02/10/2023 Assessment & Plan (09/12/2024 9:27 AM CDT): Chronic problem. Elevated upon arrival today. Currently taking Lisinopril 40mg, metoprolol XL 100mg daily, diltiazem CD 240mg daily, triamterene-HCTZ 37.5-25mg. Assessment & Plan (05/14/2024 10:05 AM REPRESENTATIVE GOVERNMENT RELATIONS): Chronic problem. Elevated upon arrival today. Currently taking Lisinopril 40mg, metoprolol XL 100mg daily, triamterene-HCTZ 37.5-25mg. Assessment & Plan (09/14/2023 10:10 AM CDT): Chronic problem, improved on recheck. Continue lisinopril, metoprolol, Maxzide, furosemide, diltiazem. Assessment & Plan (06/02/2023 12:31 PM REPRESENTATIVE GOVERNMENT RELATIONS): Chronic, well-controlled. Continue lisinopril Assessment & Plan (02/10/2023 10:37 AM REPRESENTATIVE GOVERNMENT RELATIONS): Chronic problem. Elevated upon arrival today. Currently taking Lisinopril 40mg, metoprolol XL 100mg daily, triamterene-HCTZ 37.5-25mg. Class 2 severe obesity due t o excess calories with serious comorbidity and body mass index (BMI) of 35.0 to 35.9 in adult 02/10/2023 Assessment & Plan (02/10/2023 3:18 PM REPRESENTATIVE GOVERNMENT RELATIONS): Actively working on weight loss. Difficulty w/exercise d/t chronic back pain. Discussed healthy diet and importance of regular physical activity (20- 30min/day, 150min/wk). Hyperlipidemia associated with type 2 diabetes cal epstein 10/28/2022 Assessment & Plan (09/12/2024 9:26 AM CDT): Chronic problem. Near goal on current Atorvastatin 40mg & fenofibrate 135mg. Last lipid panel: 01/10/24 LDL=89, VL=480. Assessment & Plan (05/14/2024 10:04 AM REPRESENTATIVE GOVERNMENT RELATIONS): Chronic problem. Near goal on current Atorvastatin 40mg & fenofibrate 135mg. Last lipid panel: 01/10/24 LDL=89, HX=407. Assessment & Plan (01/10/2024 1:15 PM CDT): Chronic, stable. Update lipid profile. Continue statin therapy with atorvastatin 40 mg daily Assessment & Plan (09/14/2023 10:10 AM CDT): Chronic problem. On statin therapy, no changes. Assessment & Plan (06/02/2023 12:31 PM REPRESENTATIVE GOVERNMENT RELATIONS): Chronic, stable. Continue combination therapy of atorvastatin 40 mg daily with fenofibrate Diet and exercise advised Assessment & Plan (02/10/2023 10:38 AM REPRESENTATIVE GOVERNMENT RELATIONS): Chronic problem. Near goal on current Atorvastatin 40mg & fenofibrate 135mg. Last lipid panel: 10/28/22 LDL=84, MQ=356. Assessment & Plan (10/28/2022 3:49 PM CDT): [...] infection. Assessment & Plan (05/14/2024 10:27 AM REPRESENTATIVE GOVERNMENT RELATIONS): Chronic problem. A1c at goal/stable today at [...] Trulicity. Assessment & Plan (06/02/2023 12:30 PM REPRESENTATIVE GOVERNMENT RELATIONS): Chronic, well-controlled with risk of hypoglycemia Stop Toujeo Continue Jardiance 25 mg daily Continue Trulicity Patient to call if blood glucose persistently increased to over 150 Assessment & Plan (02/10/2023 11:13 AM REPRESENTATIVE GOVERNMENT RELATIONS): Chronic problem. A1c at goal/stable today at 5.9%. Current medications: Jardiance 25mg daily Metformin 1000mg daily Trulicity 3mg weekly Toujeo 15 units daily Regular insulin 10 units for blood sugar over 150 (rarely uses) UTD on labs. DM eye exam completed -12/2022 at [facility]. Letter sent to get copy of report. [...] 20 units daily Continue Farxiga and metformin Type II or unspecified type diabetes mellitus with renal manifestations, uncontrolled(250.42) 08/18/2013 Overview (12/27/2024): DMII WO CMP NT ST [facility] Encounters Date Type Department Care Team Description 02/13/2025 9:23 AM REPRESENTATIVE GOVERNMENT RELATIONS Hospital Encounter [facility] [id number] [place] [address] Pleural effusion on left 02/12/[address] [facility] [id number] [place] [address] Bill Fishman MD 02/07/2025 1:30 PM REPRESENTATIVE GOVERNMENT RELATIONS Office Visit [facility] [id number] [place] [address] [address] [place] [address] Pop Villar NP Pleural effusion on left (Primary Dx); Aortic stenosis, severe 02/07/2025 12:45 AM REPRESENTATIVE GOVERNMENT RELATIONS - 02/07/2025 11:59 PM REPRESENTATIVE GOVERNMENT RELATIONS Hospital Encounter [facility] [id number] [place] [address] Acute on chronic congestive heart failure, unspecified heart failure type (HCC) Discharge Disposition: Discharge to home or self care 02/04/2025 11:30 AM REPRESENTATIVE GOVERNMENT RELATIONS Home Care Visit [address] [place] [address] Pop Smith RN SN OASIS DISCHARGE 01/31/2025 9:30 AM CDT Home Care Visit [address] [place] [address] Pop Smith RN SN HOME VISIT 01/30/2025 Orders Only [facility] [address] [facility] [address] [place] [address] Donna Bryant NP Acute on chronic congestive heart failure, unspecified heart failure type (HCC) (Primary Dx) 01/27/2025 10:16 AM CDT - 01/27/2025 3:02 PM CDT Emergency [facility] [address] [place] [address] Tommy Anderson Jr., MD Hypervolemia, unspecified hypervolemia type (Primary Dx) Discharge Disposition: Discharge to home or self care 01/27/2025 Home Care Visit [address] [place] [address] Sylvie Glass, RN SN TRIAGE ENCOUNTER 01/25/2025 12:00 PM CDT Home Care Visit [address] [place] [address] Pop Smith RN SN HOME VISIT 01/21/2025 11:30 AM CDT Home Care Visit [address] [place] [address] Pop Smith RN SN HOME VISIT 01/21/2025 11:00 AM CDT - 01/21/2025 11:59 PM CDT Hospital Encounter [facility] [address] [place], [place] [id number] Discharge Disposition: Discharge to home or self care 01/18/2025 Home Care Visit [address] [place] [address] Sylvie Glass, ZCAH SN TRIAGE ENCOUNTER 01/17/2025 1:00 PM CDT Clinical Support [facility] [address] [place] [phone] 01/17/2025 Telephone [facility] [address] [facility] [address] [place] [address] Kaitlynn Vivas NP Med Management 01/16/2025 11:30 AM CDT Home Care Visit [address] [place] [address] Pop Smith RN SN OASIS START OF CARE 01/16/2025 Plan of Care Documentation [address] [place] [address] 01/15/2025 Telephone [facility] Home Care Services [address] [place] [address] Babak Mccoy MA 01/07/2025 8:22 AM CDT Anesthesia Event [facility] [address] [place] [address] Porfirio Feliz MD [place], Emenike Adolphus Jr., MD 01/07/2025 8:00 AM CDT - 01/07/2025 1:30 PM CDT Surgery [facility] [address] [place] [address] Esteban Fairchild MD REPLACEMENT AORTIC VALVE, CABG X2/300 min 01/07/2025 7:25 AM CDT Ancillary Procedure [facility] [address] [place] [address] 01/07/2025 5:51 AM CDT - 01/14/2025 4:35 PM CDT Hospital Encounter [address] [address] Esteban Fairchild MD Nonrheumatic aortic valve stenosis (Primary Dx); Aortic valve stenosis, etiology of cardiac valve disease unspecified; Aortic stenosis, severe Discharge Disposition: Discharge to home, home health skilled care 12/27/2024 9:47 AM CDT - 12/27/2024 11:59 PM CDT Hospital Encounter [facility] [address] [place] [address] Discharge Disposition: Discharge to home or self care 12/27/2024 9:45 AM CDT Pre-Admission Testing [facility] Pre [facility]est[facility] Testing [address] [place] [address] Aortic valve stenosis, etiology of cardiac valve disease unspecified; Shortness of breath 12/27/2024 7:47 AM CDT - 12/27/2024 11:59 PM CDT Hospital Encounter [facility] [address] [place] [address] Aortic valve stenosis, etiology of cardiac valve disease unspecified; Other chest pain Discharge Disposition: Discharge to home or self care 12/24/2024 Orders Only [facility] [address] [facility] [address] [place] [address] Esteban Fairchild MD Aortic valve stenosis, etiology of cardiac valve disease unspecified (Primary Dx); Other chest pain 11/27/2024 3:30 PM CDT Office Visit [facility] [address] [facility] [address] [place] [address] Esteban Fairchild MD Coronary artery disease involving [place] coronary artery of [place] heart without angina pectoris (Primary Dx) from Last 3 Months Surgical History Surgery Date Site/Laterality Comments GALLBLADDER SURGERY CARPAL TUNNEL RELEASE Bilateral EAR SURGERY Right recon mastoid FOOT SURGERY Left as a child TONSILLECTOMY AND ADENOIDECTOMY COLON BIOPSY MYRINGOTOMY W/ TUBES Bilateral AORTIC VALVE REPLACEMENT 01/07/2025 Chest/N/A Procedure: REPLACEMENT AORTIC VALVE, CABG X2/300 min; Surgeon: Esteban Fairchild MD; Location: OPERATING ROOM; Service: Cardiothoracic; Laterality: N/A; Medical devices from this surgery are in the Medical Devices section. CORONARY ARTERY BYPASS GRAFT 01/07/2025 Chest/N/A Procedure: CORONARY ARTERY BYPASS GRAFT.; Surgeon: Esteban Fairchild MD; Location: OPERATING ROOM; Service: Cardiothoracic; Laterality: N/A; Medical devices from this surgery are in the Medical Devices section. THORACENTESIS W IMAGING LEFT 02/13/2025 Left Medical History Medical History Date Comments Hyperlipidemia Gastroesophageal reflux disease Asthma Hypertension Type 2 diabetes mellitus Sleep apnea Vertigo Arthritis Anxiety Coronary artery disease Heart valve problem Family History Medical History Relation Name Comments Coronary artery disease Father Toby nary artery disease; Diabetes Father Diabetes mellit us; Hypertension Mother Hypertension; Relation Name Status Comments Father Mother Alive Social History Tobacco Use Types Packs/Day [...] often do you attend chur ch or baptist services? Never 01/08/2025 Do you belong to any clubs o r organizations such as orthodox groups, unions, fraternal or athletic groups, or [...] any time in the past 12 [facility], were you homeless or living in a correction (including now)? No 01/08/2025 [facility] Utilities Answer Date Recorded In [...] on file Legal Sex Male 12:39 PM REPRESENTATIVE GOVERNMENT RELATIONS Gender Identity Not on file Sexual Orientation Straight 01/10/2024 11 :32 AM CDT Last Filed Vital Signs Vital Sign Reading Time Taken Comments Blood Pressure 148/70 02/13/2025 11:09 AM REPRESENTATIVE GOVERNMENT RELATIONS Pulse 94 02/13/2025 10:42 AM REPRESENTATIVE GOVERNMENT RELATIONS Temperature 36.7 C (98 F) 02/04/2025 10:00 AM REPRESENTATIVE GOVERNMENT RELATIONS Respiratory Rate 24 02/13/2025 11:2 1 AM REPRESENTATIVE GOVERNMENT RELATIONS Oxygen Saturation 98% 02/13/2025 11: 21 AM REPRESENTATIVE GOVERNMENT RELATIONS Inhaled Oxygen Concentration - - Weight 110.9 kg (244 lb 9.6 oz) 02/07/2025 2:08 PM REPRESENTATIVE GOVERNMENT RELATIONS Height 172.7 cm (5' 8) 02/07/2025 2:08 PM REPRESENTATIVE GOVERNMENT RELATIONS Body Mass Index 37.19 02/07/2025 2:08 PM REPRESENTATIVE GOVERNMENT RELATIONS Plan of Treatment Health Maintenance Due Date Last Done Comments Colon Cancer Screening-Colonoscopy 1965 Hepatitis C Screening 1965 Prostate Cancer Screening-PSA 1965 Hepatitis B Screening 08/18/1981 Regular Well Visit/Exam 18-64 08/18/1981 Pneumococcal vaccine <65 (1 of 2 - PCV) 08/18/1982 Zoster Vaccine (1 of 2) 08/18/2013 Covid-19 Vaccine (5 - 2024-2 6 season) 2024 02/03/2022, 03/13/2021, 07/14/2020, Additional history exists Influenza Vaccine (#1) 2024 Albumin Creatinine Ratio, Urine 01/09/2025 , 11/01/2022 Depression Screening 01/09/2025 01/10/2024, 01/10/20 24 Lipid Panel 01/09/2025 01/10/2024, 10/28/2022 Hemoglobin A1C 03/14/2025 09/12/2024, 02, 01/10/2024, Additional history exists Dilated Eye Exam 04/16/2025 04/16/2024, 12/16/2022 Foot Exam 05/14/2025 05/14/2024, 02/10/2023 eGFR 01/27/2026 01/27/2025, 01/03, 01/14/2025, Additional history exists DTaP/Tdap/Td Vaccine (3 - Td or Tdap) 10/06/2031 10/05/2021, 09/30/2017 Medical Devices Implanted Type Area History Professor Device Identifier Shelf Expiration Date Model / Serial / Lot [employer] Inspiris Resilia Leaflet Aortic Valve 23mm [id number] - [id number] - [id number] Implanted:Qty: 1 on 01/07/2025 by Esteban Fairchild MD at [facility] Prosthetic Valve N/A: Aortic Valve [employer] 09/05/2029 [id number] / [id number] / Procedures Procedure Name Priority Date/Time Associated Diagnosis Comments THORACENTESIS W IMAGING LEFT Schedule Routine, Read Routine (OP Routine) 02/13/2025 10:39 AM REPRESENTATIVE GOVERNMENT RELATIONS Pleural effusion on left XR CHEST PA LATERAL 2 VIEWS Schedule Routine, Read Routine (OP Routine) 02/07/2025 1:05 PM REPRESENTATIVE GOVERNMENT RELATIONS Acute on chronic congestive heart failure, unspecified heart failure type (HCC) URINALYSIS, MICROSCOPIC ONLY STAT 01/27/2025 12:58 PM CDT URINALYSIS AND REFLEX TO MICROSCOPIC AND CULTURE STAT 01/27/2025 12:58 PM CDT XR CHEST 1 VIEW ED 01/27/2025 10:51 AM CDT POCT GLUCOSE DEVICE Routine 01/27/2025 1 0:29 AM CDT EGFR STAT 01/27/2025 10:27 AM CDT DIFFERENTIAL AUTO STAT 01/27/2025 10: 27 AM CDT PRO B-TYPE NATRIURETIC PEPTIDE STAT 01/27/2025 10:27 AM CDT SEPSIS LACTATE WITH REFLEX STAT 01/27/2025 10:27 AM CDT COMPREHENSIVE METABOLIC PANEL STAT 01/27/2025 10:27 AM CDT CBC WITH AUTO DIFFERENTIAL STAT 01/27/2025 10:27 AM CDT ECG 12-LEAD STAT 01/27/2025 10:22 AM CDT URINALYSIS, MICROSCOPIC ONLY STAT 01/21/2025 11:00 AM CDT EGFR STAT 01/21/2025 11:00 AM CDT CBC WITHOUT DIFFERENTIAL STAT 01/21/2025 11:00 AM CDT COMPREHENSIVE METABOLIC PANEL STAT 01/21/2025 11:00 AM CDT URINALYSIS AND REFLEX TO MICROSCOPIC STAT 01/21/2025 11:00 AM CDT POCT GLUCOSE DEVICE Routine 01/14/2025 1 1:54 AM CDT PEP THERAPY Routine 01/14/2025 9:56 AM CDT XR CHEST PA LATERAL 2 VIEWS IP Routine 01/14/2025 8:48 AM CDT POCT GLUCOSE DEVICE Routine 01/14/2025 7 :56 AM CDT EGFR Routine 01/14/2025 5:37 AM CDT BASIC METABOLIC PANEL Routine 01/14/2025 5:37 AM CDT APTT Routine 01/14/2025 5:37 AM CDT PROTIME-INR Routine 01/14/2025 5:37 AM CDT CBC WITHOUT DIFFERENTIAL Routine 01/14/2025 5:37 AM CDT POCT GLUCOSE DEVICE Routine 01/13/2025 8 :04 PM CDT POCT GLUCOSE DEVICE Routine 01/13/2025 5 :39 PM CDT POCT GLUCOSE DEVICE Routine 01/13/2025 1 2:48 PM CDT POCT GLUCOSE DEVICE Routine 01/13/2025 7 :45 AM CDT XR CHEST 1 VIEW IP Routine 01/13/2025 6:14 AM CDT EGFR Timed 01/13/2025 5:05 AM CDT BASIC METABOLIC PANEL Timed 01/13/2025 5:05 AM CDT CBC WITHOUT DIFFERENTIAL Routine 01/13/2025 5:05 AM CDT POCT GLUCOSE DEVICE Routine 01/12/2025 9 :29 PM CDT POCT GLUCOSE DEVICE Routine 01/12/2025 4 :44 PM CDT POCT GLUCOSE DEVICE Routine 01/12/2025 1 2:07 PM CDT XR CHEST 1 VIEW IP Routine 01/12/2025 11:23 AM CDT POCT GLUCOSE DEVICE Routine 01/12/2025 8 :56 AM CDT TRANSTHORACIC ECHO (TTE) COMPLETE W DOPPLER/CF W CONTRAST Routine 01/12/2025 8:30 AM CDT CRITICAL CARE Routine 01/12/2025 7:08 AM CDT Aortic valve stenosis, etiology of cardiac valve disease unspecified POCT GLUCOSE DEVICE Routine 01/12/2025 4 :17 AM CDT PHOSPHORUS Add-On 01/12/2025 2:30 AM CDT MAGNESIUM Add-On 01/12/2025 2:30 AM CDT EGFR Timed 01/12/2025 2:30 AM CDT BASIC METABOLIC PANEL Timed 01/12/2025 2:30 AM CDT CBC WITHOUT DIFFERENTIAL Routine 01/12/2025 2:30 AM CDT POCT GLUCOSE DEVICE Routine 01/11/2025 1 1:46 PM CDT POCT GLUCOSE DEVICE Routine 01/11/2025 8 :56 PM CDT POCT GLUCOSE DEVICE Routine 01/11/2025 4 :06 PM CDT POCT GLUCOSE DEVICE Routine 01/11/2025 1 2:15 PM CDT POCT GLUCOSE DEVICE Routine 01/11/2025 8 :18 AM CDT CRITICAL CARE Routine 01/11/2025 7:40 AM CDT Aortic valve stenosis, etiology of cardiac valve disease unspecified XR CHEST 1 VIEW IP Routine 01/11/2025 6:51 AM CDT CALCIUM,IONIZED, WHOLE BLOOD STAT 01/11/2025 6:11 AM CDT EGFR Timed 01/11/2025 6:08 AM CDT BASIC METABOLIC PANEL Timed 01/11/2025 6:08 AM CDT MAGNESIUM Routine 01/11/2025 6:08 AM CDT CBC WITHOUT DIFFERENTIAL Routine 01/11/2025 6:08 AM CDT POCT GLUCOSE DEVICE Routine 01/11/2025 4 :39 AM CDT POCT GLUCOSE DEVICE Routine 01/11/2025 1 2:26 AM CDT EGFR Timed 01/10/2025 11:44 PM CDT CALCIUM,IONIZED, WHOLE BLOOD Timed 01/10/2025 11:44 PM CDT MAGNESIUM Timed 01/10/2025 11:44 PM CDT BASIC METABOLIC PANEL Timed 01/10/2025 11:44 PM CDT EGFR Timed 01/10/2025 11:35 PM CDT CALCIUM,IONIZED, WHOLE BLOOD Timed 01/10/2025 11:35 PM CDT MAGNESIUM Timed 01/10/2025 11:35 PM CDT BASIC METABOLIC PANEL Timed 01/10/2025 11:35 PM CDT POCT GLUCOSE DEVICE Routine 01/10/2025 8 :16 PM CDT POCT GLUCOSE DEVICE Routine 01/10/2025 4 :47 PM CDT POCT GLUCOSE DEVICE Routine 01/10/2025 1 2:36 PM CDT POCT GLUCOSE DEVICE Routine 01/10/2025 7 :56 AM CDT CRITICAL CARE Routine 01/10/2025 7:02 AM CDT Aortic valve stenosis, etiology of cardiac valve disease unspecified XR CHEST 1 VIEW IP Routine 01/10/2025 4:21 AM CDT CBC WITHOUT DIFFERENTIAL Routine 01/10/2025 2:11 AM CDT PHOSPHORUS Add-On 01/10/2025 2:01 AM CDT EGFR Timed 01/10/2025 2:01 AM CDT BASIC METABOLIC PANEL Timed 01/10/2025 2:01 AM CDT MAGNESIUM Routine 01/10/2025 2:01 AM CDT EGFR Routine 01/09/2025 10:13 PM CDT MAGNESIUM Routine 01/09/2025 10:13 PM CDT BASIC METABOLIC PANEL Routine 01/09/2025 10:13 PM CDT POCT GLUCOSE DEVICE Routine 01/09/2025 7 :44 PM CDT POCT GLUCOSE DEVICE Routine 01/09/2025 4 :50 PM CDT EGFR Timed 01/09/2025 4:00 PM CDT PHOSPHORUS Timed 01/09/2025 4:00 PM CDT MAGNESIUM Timed 01/09/2025 4:00 PM CDT BASIC METABOLIC PANEL Timed 01/09/2025 4:00 PM CDT CALCIUM,IONIZED, WHOLE BLOOD Timed 01/09/2025 4:00 PM CDT CBC WITHOUT DIFFERENTIAL Timed 01/09/2025 4:00 PM CDT POCT GLUCOSE DEVICE Routine 01/09/2025 1 2:22 PM CDT POCT GLUCOSE DEVICE Routine 01/09/2025 7 :55 AM CDT CRITICAL CARE Routine 01/09/2025 6:58 AM CDT Aortic valve stenosis, etiology of cardiac valve disease unspecified XR CHEST 1 VIEW ED Urgent/IP Urgent 01/09/2025 6:52 AM CDT POCT GLUCOSE DEVICE Routine 01/09/2025 5 :58 AM CDT POCT GLUCOSE DEVICE Routine 01/09/2025 4 :41 AM CDT EGFR Timed 01/09/2025 3:42 AM CDT BASIC METABOLIC PANEL Timed 01/09/2025 3:42 AM CDT BLOOD GAS, PULMONARY ARTERY Routine 01/09/2025 3:42 AM CDT MAGNESIUM Routine 01/09/2025 3:42 AM CDT CBC WITHOUT DIFFERENTIAL Routine 01/09/2025 3:42 AM CDT POCT GLUCOSE DEVICE Routine 01/09/2025 3 :39 AM CDT POCT GLUCOSE DEVICE Routine 01/09/2025 2 :41 AM CDT POCT GLUCOSE DEVICE Routine 01/09/2025 1 :50 AM CDT POCT GLUCOSE DEVICE Routine 01/09/2025 1 2:46 AM CDT POCT GLUCOSE DEVICE Routine 01/08/2025 1 1:47 PM CDT POCT GLUCOSE DEVICE Routine 01/08/2025 1 0:52 PM CDT POCT GLUCOSE DEVICE Routine 01/08/2025 9 :56 PM CDT POCT GLUCOSE DEVICE Routine 01/08/2025 8 :47 PM CDT EGFR Timed 01/08/2025 7:51 PM CDT BASIC METABOLIC PANEL Timed 01/08/2025 7:51 PM CDT TYPE AND SCREEN STAT 01/08/2025 7:51 PM CDT POCT GLUCOSE DEVICE Routine 01/08/2025 7 :44 PM CDT POCT GLUCOSE DEVICE Routine 01/08/2025 6 :49 PM CDT POCT GLUCOSE DEVICE Routine 01/08/2025 5 :54 PM CDT POCT GLUCOSE DEVICE Routine 01/08/2025 4 :21 PM CDT POCT GLUCOSE DEVICE Routine 01/08/2025 3 :56 PM CDT CRITICAL CARE Routine 01/08/2025 3:39 PM CDT Aortic valve stenosis, etiology of cardiac valve disease unspecified POCT GLUCOSE DEVICE Routine 01/08/2025 2 :49 PM CDT EGFR Timed 01/08/2025 2:37 PM CDT MAGNESIUM Timed 01/08/2025 2:37 PM CDT BASIC METABOLIC PANEL Timed 01/08/2025 2:37 PM CDT POCT GLUCOSE DEVICE Routine 01/08/2025 1 :48 PM CDT POCT GLUCOSE DEVICE Routine 01/08/2025 1 2:51 PM CDT POCT GLUCOSE DEVICE Routine 01/08/2025 1 1:48 AM CDT POCT GLUCOSE DEVICE Routine 01/08/2025 1 0:50 AM CDT POCT GLUCOSE DEVICE Routine 01/08/2025 9 :40 AM CDT XR CHEST 1 VIEW ED Urgent/IP Urgent 01/08/2025 8:37 AM CDT POCT GLUCOSE DEVICE Routine 01/08/2025 8 :30 AM CDT POCT GLUCOSE DEVICE Routine 01/08/2025 5 :51 AM CDT XR CHEST 1 VIEW IP Routine 01/08/2025 4:40 AM CDT POCT GLUCOSE DEVICE Routine 01/08/2025 3 :45 AM CDT EGFR Timed 01/08/2025 2:21 AM CDT OXYHEMOGLOBIN, PULMONARY ARTERY Routine 01/08/2025 2:21 AM CDT CALCIUM,IONIZED, WHOLE BLOOD Routine 01/08/2025 2:21 AM CDT BASIC METABOLIC PANEL Timed 01/08/2025 2:21 AM CDT BLOOD GAS, PULMONARY ARTERY Routine 01/08/2025 2:21 AM CDT MAGNESIUM Routine 01/08/2025 2:21 AM CDT CBC WITHOUT DIFFERENTIAL Routine 01/08/2025 2:21 AM CDT POCT GLUCOSE DEVICE Routine 01/08/2025 1 :38 AM CDT POCT GLUCOSE DEVICE Routine 01/08/2025 1 2:35 AM CDT POCT GLUCOSE DEVICE Routine 01/07/2025 1 1:16 PM CDT POCT GLUCOSE DEVICE Routine 01/07/2025 1 0:03 PM CDT EXTUBATION Routine 01/07/2025 10:01 PM CDT BLOOD GAS, ARTERIAL STAT 01/07/2025 9 :19 PM CDT POCT GLUCOSE DEVICE Routine 01/07/2025 9 :09 PM CDT POCT GLUCOSE DEVICE Routine 01/07/2025 7 :58 PM CDT EGFR Timed 01/07/2025 7:54 PM CDT CBC WITHOUT DIFFERENTIAL Timed 01/07/2025 7:54 PM CDT BASIC METABOLIC PANEL Timed 01/07/2025 7:54 PM CDT CRITICAL CARE Routine 01/07/2025 7:05 PM CDT Aortic valve stenosis, etiology of cardiac valve disease unspecified POCT GLUCOSE DEVICE Routine 01/07/2025 6 :57 PM CDT POCT GLUCOSE DEVICE Routine 01/07/2025 6 :03 PM CDT CRITICAL CARE Routine 01/07/2025 5:24 PM CDT Aortic valve stenosis, etiology of cardiac valve disease unspecified POCT GLUCOSE DEVICE Routine 01/07/2025 5 :15 PM CDT BLOOD GAS, ARTERIAL Timed 01/07/2025 5 :14 PM CDT POCT GLUCOSE DEVICE Routine 01/07/2025 4 :59 PM CDT XR CHEST 1 VIEW ED Urgent/IP Urgent 01/07/2025 4:38 PM CDT EGFR STAT 01/07/2025 4:12 PM CDT PHOSPHORUS STAT 01/07/2025 4:12 PM CDT APTT STAT 01/07/2025 4:12 PM CDT PROTIME-INR STAT 01/07/2025 4:12 PM CDT CBC WITHOUT DIFFERENTIAL STAT 01/07/2025 4:12 PM CDT BLOOD GAS, ARTERIAL STAT 01/07/2025 4 :12 PM CDT CALCIUM,IONIZED, WHOLE BLOOD STAT 01/07/2025 4:12 PM CDT MAGNESIUM STAT 01/07/2025 4:12 PM CDT BASIC METABOLIC PANEL STAT 01/07/2025 4:12 PM CDT POCT GLUCOSE DEVICE Routine 01/07/2025 3 :53 PM CDT SURGICAL PATHOLOGY Routine 01/07/2025 3: 49 PM CDT Aortic valve stenosis, etiology of cardiac valve disease unspecified POC BLOOD GAS AND CHEMISTRIES, ARTERIAL Routine 01/07/2025 3:15 PM CDT TRANSFUSE PLASMA Timed 01/07/2025 3:08 PM CDT TRANSFUSE PLATELETS Timed 01/07/2025 2 :57 PM CDT POC BLOOD GAS AND CHEMISTRIES, ARTERIAL Routine 01/07/2025 2:22 PM CDT POCT ACTIVATED CLOTTING TIME, HIGH RANGE Routine 01/07/2025 2:20 PM CDT POC BLOOD GAS AND CHEMISTRIES, ARTERIAL Routine 01/07/2025 1:48 PM CDT POCT ACTIVATED CLOTTING TIME, HIGH RANGE Routine 01/07/2025 1:46 PM CDT POC BLOOD GAS AND CHEMISTRIES, ARTERIAL Routine 01/07/2025 1:27 PM CDT POCT ACTIVATED CLOTTING TIME, HIGH RANGE Routine 01/07/2025 1:25 PM CDT PLATELET COUNT STAT 01/07/2025 1:21 PM CDT POC BLOOD GAS AND CHEMISTRIES, ARTERIAL Routine 01/07/2025 1:00 PM CDT POCT ACTIVATED CLOTTING TIME, HIGH RANGE Routine 01/07/2025 12:58 PM CDT POC BLOOD GAS AND CHEMISTRIES, ARTERIAL Routine 01/07/2025 12:35 PM CDT POCT ACTIVATED CLOTTING TIME, HIGH RANGE Routine 01/07/2025 12:33 PM CDT POC BLOOD GAS AND CHEMISTRIES, ARTERIAL Routine 01/07/2025 12:09 PM CDT POCT ACTIVATED CLOTTING TIME, HIGH RANGE Routine 01/07/2025 12:07 PM CDT POC BLOOD GAS AND CHEMISTRIES, ARTERIAL Routine 01/07/2025 11:38 AM CDT POCT ACTIVATED CLOTTING TIME, HIGH RANGE Routine 01/07/2025 11:36 AM CDT DC AN CENTRAL LINE MULTI LUMEN Routine 01/07/2025 11:04 AM CDT ANESTHESIA CENTRAL VENOUS LINE PLACEMENT Routine 01/07/2025 11:04 AM CDT ANESTHESIA ARTERIAL LINE PLACEMENT Routine 01/07/2025 11:03 AM CDT DC AN ELECTIVE ENDOTRACHEAL AIRWAY Routine 01/07/2025 11:01 AM CDT POC BLOOD GAS AND CHEMISTRIES, ARTERIAL Routine 01/07/2025 11:00 AM CDT POCT ACTIVATED CLOTTING TIME, HIGH RANGE Routine 01/07/2025 10:58 AM CDT POC BLOOD GAS AND CHEMISTRIES, ARTERIAL Routine 01/07/2025 10:16 AM CDT POCT ACTIVATED CLOTTING TIME, HIGH RANGE Routine 01/07/2025 10:09 AM CDT ANESTHESIA INDU Routine 01/07/2025 9:30 AM CDT POC BLOOD GAS AND CHEMISTRIES, ARTERIAL Routine 01/07/2025 9:00 AM CDT POCT ACTIVATED CLOTTING TIME, HIGH RANGE Routine 01/07/2025 8:55 AM CDT CORONARY ARTERY BYPASS GRAFT. 01/07/2025 8:22 AM CDT Aortic valve stenosis, etiology of cardiac valve disease unspecified REPLACEMENT AORTIC VALVE. 01/07/2025 8:22 AM CDT Aortic valve stenosis, etiology of cardiac valve disease unspecified INDU ADD-ON FOR OR Routine 01/07/2025 7:2 4 AM CDT B CHECK SAMPLE STAT 01/07/2025 7:10 AM CDT PREPARE PLASMA STAT 01/07/2025 6:52 AM CDT PREPARE PLATELETS STAT 01/07/2025 6:5 2 AM CDT PREPARE RBC STAT 01/07/2025 6:52 AM CDT POTASSIUM, WHOLE BLOOD STAT 01/07/2025 6:52 AM CDT POCT GLUCOSE DEVICE Routine 01/07/2025 6 :33 AM CDT EGFR Routine 12/27/2024 11:48 AM CDT Aortic valve stenosis, etiology of cardiac valve disease unspecified BASIC METABOLIC PANEL Routine 12/27/2024 11:48 AM CDT Aortic valve stenosis, etiology of cardiac valve disease unspecified PROTIME-INR Routine 12/27/2024 11:48 AM CDT Aortic valve stenosis, etiology of cardiac valve disease unspecified APTT Routine 12/27/2024 11:48 AM CDT Aortic valve stenosis, etiology of cardiac valve disease unspecified Shortness of breath CBC WITHOUT DIFFERENTIAL Routine 12/27/2024 11:48 AM CDT Aortic valve stenosis, etiology of cardiac valve disease unspecified URINALYSIS, MICROSCOPIC ONLY Routine 12/27/2024 11:15 AM CDT Aortic valve stenosis, etiology of cardiac valve disease unspecified TYPE AND SCREEN Routine 12/27/2024 11:15 AM CDT Aortic valve stenosis, etiology of cardiac valve disease unspecified URINALYSIS AND REFLEX TO MICROSCOPIC AND CULTURE Routine 12/27/2024 11:15 AM CDT Aortic valve stenosis, etiology of cardiac valve disease unspecified ECG 12-LEAD Routine 12/27/2024 10:30 AM CDT Aortic valve stenosis, etiology of cardiac valve disease unspecified XR CHEST PA LATERAL 2 VIEWS Schedule Routine, Read Routine (OP Routine) 12/27/2024 10:15 AM CDT Aortic valve stenosis, etiology of cardiac valve disease unspecified US VEIN MAPPING DUPLEX LOWER EXTREMITY BILATERAL Schedule Routine, Read Routine (OP Routine) 12/27/2024 9:05 AM CDT Aortic valve stenosis, etiology of cardiac valve disease unspecified Other chest pain POCT HEMOGLOBIN A1C Routine 09/12/2024 9 :14 AM CDT Type 2 diabetes mellitus with hyperglycemia, with long-term current use of insulin (HCC) HM DIABETES EYE EXAM Routine 04/16/2024 9:12 AM REPRESENTATIVE GOVERNMENT RELATIONS LIPID PANEL Routine 01/10/2024 12:21 PM CDT Type 2 diabetes mellitus with diabetic peripheral angiopathy with gangrene, unspecified whether watermaster insulin use (HCC) ALBUMIN CREATININE RATIO, URINE Routine 01/10/2024 12:21 PM CDT Type 2 diabetes mellitus with diabetic peripheral angiopathy with gangrene, unspecified whether penitentiary insulin use (HCC) from Last 3 Months or Most Recently Relevant to Health Maintenance Results * IR Thoracentesis With Imaging Left (02/13/2025 10:39 AM REPRESENTATIVE GOVERNMENT RELATIONS) Anatomical Region Laterality Modality Chest Left X-Ray Angiograph y 02/13/2025 1:31 PM REPRESENTATIVE GOVERNMENT RELATIONS Impressions 02/13/2025 1:31 PM REPRESENTATIVE GOVERNMENT RELATIONS Ultrasound-guided left thoracentesis. Electronically signed by: Bill Fishman M.D. Narrative 02/13/2025 1:31 PM REPRESENTATIVE GOVERNMENT RELATIONS EXAMINATION: IR THORACENTESIS W IMAGING LEFT DATE: [...] Electronically signed by: Bill Fishman M.D. us Pop Villar NP IMG IR PROCEDURES Final Res ult * X-ray chest 2 views (02/07/2025 1:05 PM REPRESENTATIVE GOVERNMENT RELATIONS) Anatomical Region Laterality Modality Body, Chest N/A Computed Radiogr aphy 02/07/2025 2:13 PM REPRESENTATIVE GOVERNMENT RELATIONS Impressions 02/07/2025 2:13 PM REPRESENTATIVE GOVERNMENT RELATIONS Left effusion. Electronically signed by: Summer Nayak M.D. Narrative 02/07/2025 2:13 PM REPRESENTATIVE GOVERNMENT RELATIONS EXAMINATION: XR CHEST PA LATERAL 2 VIEWS HISTORY: The patient is a 59-year-old male who presents with a left effusion. Comparison made with the previous study dated 01/27/2025. TECHNIQUE: AP and lateral view of the chest. FINDINGS: Left effusion noted with left lower lobe compressive atelectasis secondary to this. The remainder of the lungs are clear. Cardiovascular structures unremarkable. Procedure Note Summer Nayak MD - 02/07/2025 EXAMINATION: XR CHEST PA LATERAL 2 VIEWS HISTORY: The patient is a 59-year-old male who presents with a left effusion. Comparison made with the previous study dated 01/27/2025. TECHNIQUE: AP and lateral view of the chest. FINDINGS: Left effusion noted with left lower lobe compressive atelectasis secondary to this. The remainder of the lungs are clear. Cardiovascular structures unremarkable. IMPRESSION: Left effusion. Electronically signed by: Summer Nayak M.D. us Donna Bryant TECHNICAL SUPPORT REPRESENTATIVE IMG XR PROCEDURES Final R esult * (ABNORMAL) Urinalysis reflex to microscopic and culture Urine (01/27/2025 12:58 PM CDT) Color, ur Straw Yellow Clarity, ur Clear Clear [facility] Specific gravity, ur 1.006 1.003 - 1.030 [facility] pH, urine 6.0 [facility] Comment: Interpretive Data U rine pH is affected by diet, medications, systemic acid-base disturbances, and renal tubular function. pH may affect urinary stone formation. For example, urine pH below 6.0 may help reduce the tendency for calcium phosphate stones and pH greater than 6.0 may reduce the tendency for uric acid stone formation. Source: [employer] Current Interpretive Data was last revised on 2017 Protein, ur ql 2+(A) Negative [facility] Glucose, ur ql 4+(A) Negative [facility] Ketones, ur Negative Negative [facility] Bilirubin, ur Negative Negative [facility] Blood, ur Trace(A) Negative [facility] Urobilinogen, ur <2.0 <2.0 mg/dL [facility] Nitrite, ur Negative Negative [facility] Leukocyte esterase, ur Negative Negative [facility] UA reflex comment Reflex to microscopic UA will be performed. [facility] Urine 01/27/2025 12:5 8 PM CDT 01/27/2025 1:04 PM CDT Narrative [facility] - 01/27/2025 1:33 PM CDT If patient unable to urinate, straight cath us Tommy Anderson Jr., MD LAB MICROBIOLOGY - G ENERAL ORDERABLES Final Result Performing Organization Address [facility] de Phone Number [address] Department [place] [address] * Urinalysis, microscopic only (01/27/2025 12:58 PM CDT) WBC, ur 0-5 0 - 5 /HPF RBC, ur 0-2 0 - 2 /HPF [facility] Epithelial cells, squamous, ur 1-5 0 - 5 /HPF [facility] Culture Reflex Comment Reflex conditions for urine culture (WBC >10) not met. [facility] Urine 01/27/2025 12:5 8 PM CDT 01/27/2025 1:04 PM CDT us Tommy Anderson Jr., MD LAB URINE ORDERABLES Final Result Performing Organization Address [facility] Phone Number [place] [address] [place] [address] * XR Chest 1 Vw Portable (If patient hemodynamically UNstable or UNable to ambulate) (01/27/2025 10:51 AM CDT) Anatomical Region Laterality Modality Body, Chest N/A Computed Radiogr aphy 01/27/2025 10:5 7 AM CDT Impressions 01/27/2025 10:57 AM CDT Cardiomegaly. Electronically signed by: Summer Nayak M.D. Narrative 01/27/2025 10:57 AM CDT EXAMINATION: XR CHEST 1 VIEW HISTORY: There is a 59-year-old male who presents with shortness of breath. Comparison made with the previous study dated 01/14/2025. TECHNIQUE: AP portable view of the chest. FINDINGS: Cardiomegaly with aortic atherosclerosis. No failure. No active infiltrate. Procedure Note Summer Nayka MD - 01/27/2025 EXAMINATION: XR CHEST 1 VIEW HISTORY: There is a 59-year-old male who presents with shortness of breath. Comparison made with the previous study dated 01/14/2025. TECHNIQUE: AP portable view of the chest. FINDINGS: Cardiomegaly with aortic atherosclerosis. No failure. No active infiltrate. IMPRESSION: Cardiomegaly. Electronically signed by: Summer Nayak M.D. us Tommy Anderson Jr., MD IMG XR PROCEDURES Fi nal Result * POCT glucose (01/27/2025 10:29 AM CDT) Pathologist [facility] Glucose, POC 149 70 - 199 mg/dL Blood 01/27/2025 10:2 9 AM CDT 01/27/2025 10:29 AM CDT us Tommy Anderson Jr., MD LAB POCT ORDERABLES - DEVICE Final Result Performing Organization Address [facility] Co de Phone Number [address] [place] [phone] * Sepsis Lactate w/ Reflex (01/27/2025 10:27 AM CDT) [facility] Sepsis Lactate 1.6 0.7 - 2.0 mmol/L Blood 01/27/2025 10:2 7 AM CDT 01/27/2025 10:32 AM CDT Tommy Anderson Jr., MD LAB BLOOD ORDERABLES Final Result Performing Organization Address [facility] Co de Phone Number [place] [address] [address] Department [place] [place] [address] * eGFR (01/27/2025 10:27 AM CDT) [facility] eGFR >90 >=60 mL/min/1. 73 m2 Comment: Interpretive Data [...] interpretive data was last reviewed 2021. Blood 01/27/2025 10:2 7 AM CDT 01/27/2025 10:34 AM CDT us Puneet Sanders MD LAB BLOOD ORDERABLES Final Re sult [facility] [address] [address] [place] [address] * (ABNORMAL) Differential, auto (01/27/2025 10:27 AM CDT) Neutrophil abs 7.53(H) 1.50 - 6.50 K/cumm Imm gran abs 0.10 0.00 - 0.10 K/cumm [facility] Lymphocyte abs 0.99 0.80 - 3.30 K/cumm [facility] Monocyte abs 0.73 0.20 - 0.80 K/cumm [facility] Eosinophil abs 0.11 0.00 - 0.50 K/cumm [facility] Basophil abs 0.04 0.00 - 0.10 K/cumm [facility] Neutrophil pct 79.2 % [facility] Comment: Interpretive Data Percent cell count reference ranges are not reported, since discordance with absolute values may lead to misinterpretation of CBC data. Current Interpretive Data was last revised on 2017. Imm gran pct 1.1 % [facility] Comment: Interpretive Data Percent cell count reference ranges are not reported, since discordance with absolute values may lead to misinterpretation of CBC data. Current Interpretive Data was last revised on 2017. Lymphocyte pct 10.4 % [facility] Comment: Interpretive Data Percent cell count reference ranges are not reported, since discordance with absolute values may lead to misinterpretation of CBC data. Current Interpretive Data was last revised on 2017. Monocyte pct 7.7 % [facility] Comment: Interpretive Data Percent cell count reference ranges are not reported, since discordance with absolute values may lead to misinterpretation of CBC data. Current Interpretive Data was last revised on 2017. Eosinophil pct 1.2 % [facility] Comment: Interpretive Data Percent cell count reference ranges are not reported, since discordance with absolute values may lead to misinterpretation of CBC data. Current Interpretive Data was last revised on 2017. Basophil pct 0.4 % [facility] Comment: Interpretive Data Percent cell count reference ranges are not reported, since discordance with absolute values may lead to misinterpretation of CBC data. Current Interpretive Data was last revised on 2017. Blood 01/27/2025 10:2 7 AM CDT 01/27/2025 10:34 AM CDT us Puneet Sanders MD LAB BLOOD ORDERABLES Final Re sult [address] [place] [address] * (ABNORMAL) Pro B-type natriuretic peptide (01/27/2025 10:27 AM CDT) NT-proBNP 5,395(H) <=300 pg/mL Comment: Interpretive Comments: A. Dyspnea in Acute Care Setting All Ages: < 300 pg/ml, acute heart failure unlikely. < 50 yrs: 300 - 450 pg/ml, further investigation warranted. > 450 pg/ml, acute heart failure likely. 50 - 74 yrs: 300 - 900 pg/ml, further investigation warranted. > 900 pg/ml, acute heart failure likely . > or = 75 yrs: 450 - 1800 pg/ml, further investigation warranted. > 1800 pg/ml, acute heart failure likely. B. Non-acute Setting < 75 yrs < 125 pg/ml, rules out heart failure. > or = 125 pg/ml, further investigation warranted. > or = 75 yrs < 450 pg/ml, rules out heart failure. > or = 450 pg/ml, further investigation warranted. - Knowledge of each individual patient's NT-proBNP range may be more useful than using similar cut-points for every patient. Please note that marked elevations in NT-proBNP levels may be observed in state other than Left Ventricular Congestive Failure, including: acute coronary syndromes, right heart strain/failure (including pulmonary embolism and cor pulmonale), critical illness, renal failure, as well as advanced age. - References: 1. Angely EPPS et.al. Eur Heart J. 2006:27:330-337. 2. Dangelo OLIVARES, Jordan OLSON. J. AM Zachary Cardiol: Cardiovasc Imag. 2009;2: 216- 225. Interpretive Data Last Revised Date: 2017. Blood 01/27/2025 10:2 7 AM CDT 01/27/2025 10:34 AM CDT us Tommy Anderson Jr., MD LAB BLOOD ORDERABLES Final Result [facility] [address] [place] [address] * (ABNORMAL) CBC with auto differential (01/27/2025 10:27 AM CDT) Pathologist [facility] WBC 9.50 3.80 - 9.90 K/cumm Hgb 11.2(L) 13.0 - 17.5 g/dL [facility] Hct 37.1(L) 38.9 - 50.3 % [facility] Plt 324 150 - 400 K/cumm [facility] MPV 8.6(L) 9.1 - 12.3 fL [facility] RBC 4.21(L) 4.30 - 5.80 M/cumm [facility] MCV 88.1 81.3 - 96.4 fL [facility] MCH 26.6(L) 27.1 - 33.3 pg [facility] MCHC 30.2(L) 32.3 - 35.7 g/dL [facility] RDW CV 15.0(H) 11.1 - 14.9 % [facility] RDW SD 48.2(H) 35.7 - 48.1 fL [facility] NRBC abs 0.00 0.00 - 0.01 K/cumm [facility] Blood 01/27/2025 10:2 7 AM CDT 01/27/2025 10:34 AM CDT us Tommy Anderson Jr., MD LAB [place]LO[place] [address] [address] Department [place] [address] * (ABNORMAL) Comprehensive metabolic panel (01/27/2025 10:27 AM CDT) Sodium 140 135 - 145 mmol/L Potassium, pl 4.2 3.3 - 4.9 mmol/L [facility] Chloride 106 97 - 110 mmol/L [facility] CO2 22 22 - 32 mmol/L [facility] Anion gap 12 2 - 15 mmol/L [facility] BUN 11 6 - 25 mg/dL [facility] Creatinine 0.84 0.80 - 1.30 mg/dL [facility] Glucose 129 70 - 199 mg/dL [facility] Comment: Interpretive Data Fasting glucose >/= 126 mg/dl is diagnostic for diabetes. Fasting is defined as no caloric intake for at least 8 hours. Fasting glucose between 100 mg/dl to 125 mg/dl is diagnostic of prediabetes. In a patient with classic symptoms of hyperglycemia or hyperglycemic crisis, a random glucose >/= 200 mg/dl is diagnostic for diabetes. In the absence of unequivocal hyperglycemia, results should be confirmed by repeat testing. The classification and Diagnosis of Diabetes Diabetes Care 202; 46: S19-S40. Current interpretive data was last revised 2022. Calcium 8.7 8.5 - 10.3 mg/dL [facility] Bilirubin, total 0.3 0.1 - 1.2 mg/dL [facility] Protein, pl 6.2(L) 6.5 - 8.5 g/dL [facility] Albumin 3.3(L) 3.5 - 5.0 g/dL [facility] Alk phos 113 40 - 130 Units/L [facility] ALT 23 7 - 55 Units/L [facility] AST 17 10 - 50 Units/L [facility] Blood 01/27/2025 10:2 7 AM CDT 01/27/2025 10:34 AM CDT us Tommy Anderson Jr., MD LAB BLOOD ORDERABLES Final Result Performing Organization Address [facility] Co de Phone Number [place] [address] [address] Department [place] [address] * ECG 12 lead (01/27/2025 10:22 AM CDT) 01/27/2025 10:2 2 AM CDT Narrative [facility] - 01/27/2025 8:36 PM CDT Vent Rate: 94 bpm RR Interval: 632 msec DC Interval: 182 msec QRS Duration: 106 msec QT Interval: 363 msec QTC Interval: 415 msec P-R-T [place]: 47 - -7 - 89 degrees IMPRESSION: SINUS RHYTHM INCOMPLETE RIGHT BUNDLE BRANCH BLOCK INFERIOR MYOCARDIAL INFARCTION , PROBABLY OLD ANTEROSEPTAL MYOCARDIAL INFARCTION , OF INDETERMINATE AGE Electronically Signed By: Raymond Hong MD, [facility] us Tommy Anderson Jr., MD ECG ORDERABLES Jayne l Result Performing Organization Address [facility] Co de Phone Number [facility] [employer] [facility] * eGFR (01/21/2025 11:00 AM CDT) eGFR 78 >=60 mL/min/1. 73 m2 Comment: Interpretive Data [...] interpretive data was last reviewed 2021. Blood 01/21/2025 11:0 0 AM CDT 01/21/2025 1:40 PM CDT us Notinfile Unknown LAB BLOOD ORDERABLES Final Res ult [facility] [place] [address] * (ABNORMAL) Urinalysis reflex to microscopic (01/21/2025 11:00 AM CDT) Color, ur Straw Yellow Clarity, ur Clear Clear [facility] Specific gravity, ur 1.007 1.003 - 1.030 [facility] pH, urine 6.0 [facility] Comment: Interpretive Data U rine pH is affected by diet, medications, systemic acid-base disturbances, and renal tubular function. pH may affect urinary stone formation. For example, urine pH below 6.0 may help reduce the tendency for calcium phosphate stones and pH greater than 6.0 may reduce the tendency for uric acid stone formation. Source: [facility] [employer] Current Interpretive Data was last revised on 2017 Protein, ur ql 1+(A) Negative [facility] Glucose, ur ql 4+(A) Negative [facility] Ketones, ur Negative Negative [facility] Bilirubin, ur Negative Negative [facility] Blood, ur Trace(A) Negative [facility] Urobilinogen, ur <2.0 <2.0 mg/dL [facility] Nitrite, ur Negative Negative [facility] Leukocyte esterase, ur Negative Negative [facility] UA reflex comment Reflex to microscopic UA will be performed. [facility] Urine 01/21/2025 11:0 0 AM CDT 01/21/2025 1:28 PM CDT us Notinfile Unknown LAB URINE ORDERABLES Final Res ult Performing Organization Address [facility] de Phone Number [facility] [place] [address] * (ABNORMAL) Urinalysis, microscopic only (01/21/2025 11:00 AM CDT) WBC, ur 0-5 0 - 5 /HPF RBC, ur 0-2 0 - 2 /HPF [facility] Mucous, ur Present(A) [facility] Urine 01/21/2025 11:0 0 AM CDT 01/21/2025 2:03 PM CDT us Notinfile Unknown LAB URINE ORDERABLES Final Res ult Performing Organization Address [facility] de Phone Number [facility] Department [place] [address] * (ABNORMAL) CBC without differential (01/21/2025 11:00 AM CDT) WBC 14.12(H) 3.80 - 9.90 K/cumm Hgb 10.4(L) 13.0 - 17.5 g/dL [facility] Hct 32.5(L) 38.9 - 50.3 % [facility] Plt 388 150 - 400 K/cumm [facility] MPV 9.1 9.1 - 12.3 fL [facility] RBC 3.77(L) 4.30 - 5.80 M/cumm [facility] MCV 86.2 81.3 - 96.4 fL [facility] MCH 27.6 27.1 - 33.3 pg [facility] MCHC 32.0(L) 32.3 - 35.7 g/dL [facility] RDW CV 15.3(H) 11.1 - 14.9 % [facility] RDW SD 47.7 35.7 - 48.1 fL [facility] NRBC abs 0.00 0.00 - 0.01 K/cumm [facility] Blood 01/21/2025 11:0 0 AM CDT 01/21/2025 1:28 PM CDT us Notinfile Unknown LAB BLOOD ORDERABLES Final Res ult [facility] Department [place] [address] * (ABNORMAL) Comprehensive metabolic panel (01/21/2025 11:00 AM CDT) Sodium 139 135 - 145 mmol/L Potassium, pl 4.0 3.3 - 4.9 mmol/L [facility] Chloride 98 97 - 110 mmol/L [facility] CO2 24 22 - 32 mmol/L [facility] Anion gap 17(H) 2 - 15 mmol/L [facility] BUN 26(H) 6 - 25 mg/dL [facility] Creatinine 1.08 0.80 - 1.30 mg/dL [facility] Glucose 113 70 - 199 mg/dL [facility] Comment: Interpretive Data Fasting glucose >/= 126 mg/dl is diagnostic for diabetes. Fasting is defined as no caloric intake for at least 8 hours. Fasting glucose between 100 mg/dl to 125 mg/dl is diagnostic of prediabetes. In a patient with classic symptoms of hyperglycemia or hyperglycemic crisis, a random glucose >/= 200 mg/dl is diagnostic for diabetes. In the absence of unequivocal hyperglycemia, results should be confirmed by repeat testing. The classification and Diagnosis of Diabetes Diabetes Care 202; 46: S19-S40. Current interpretive data was last revised 2022. Calcium 8.9 8.5 - 10.3 mg/dL [facility] Bilirubin, total 0.3 0.1 - 1.2 mg/dL [facility] Protein, pl 6.4(L) 6.5 - 8.5 g/dL [facility] Albumin 3.5 3.5 - 5.0 g/dL [facility] Alk phos 85 40 - 130 Units/L [facility] ALT 24 7 - 55 Units/L [facility] AST 24 10 - 50 Units/L [facility] Blood 01/21/2025 11:0 0 AM CDT 01/21/2025 1:28 PM CDT us Notinfile Unknown LAB BLOOD ORDERABLES Final Res ult [facility] Department [place] [address] * POCT glucose (01/14/2025 11:54 AM CDT) Glucose, POC 148 70 - 199 mg/dL Blood 01/14/2025 11:5 4 AM CDT 01/14/2025 11:54 AM CDT us Esteban Fairchild MD LAB POCT ORDERABLES - DEVICE Final Result [facility] [address] [place] [address] * XR Chest PA Lateral 2 Views (01/14/2025 8:48 AM CDT) Anatomical Region Laterality Modality Body, Chest N/A Computed Radiogr aphy 01/14/2025 9:05 AM CDT Impressions 01/14/2025 9:05 AM CDT FINDINGS/IMPRESSION: Median sternotomy wires are redemonstrated. Right internal jugular approach central venous catheter tip projects over the superior cavoatrial junction. Left basilar mild atelectasis lightly improved. Cannot exclude trace left effusion. No pneumothorax. The cardiac silhouette is again enlarged. Aortic atherosclerosis. Electronically signed by: Geoff Fields M.D. Narrative 01/14/2025 9:05 AM CDT EXAM: XR CHEST PA LATERAL 2 VIEWS, 01/14/2025 8:45 AM HISTORY: assess left atelectasis COMPARISON: Chest radiograph dated 01/13/2025 Procedure Note Geoff Fields MD - 01/14/2025 EXAM: XR CHEST PA LATERAL 2 VIEWS, 01/14/2025 8:45 AM HISTORY: assess left atelectasis COMPARISON: Chest radiograph dated 01/13/2025 IMPRESSION: FINDINGS/IMPRESSION: Median sternotomy wires are redemonstrated. Right internal jugular approach central venous catheter tip projects over the superior cavoatrial junction. Left basilar mild atelectasis lightly improved. Cannot exclude trace left effusion. No pneumothorax. The cardiac silhouette is again enlarged. Aortic atherosclerosis. Electronically signed by: Geoff Fields M.D. us Pop Villar TECHNICAL SUPPORT REPRESENTATIVE IMG XR PROCEDURES Final Res ult * POCT glucose (01/14/2025 7:56 AM CDT) Glucose, POC 165 70 - 199 mg/dL Blood 01/14/2025 7:56 AM CDT 01/14/2025 7:56 AM CDT us Esteban Fairchild MD LAB POCT ORDERABLES - DEVICE Final Result [facility] [address] [facility] Department [place] [address] * eGFR (01/14/2025 5:37 AM CDT) eGFR 84 >=60 mL/min/1. 73 m2 Comment: Interpretive Data [...] interpretive data was last reviewed 2021. Blood 01/14/2025 5:37 AM CDT 01/14/2025 5:47 AM CDT Pop Villar TECHNICAL SUPPORT REPRESENTATIVE LAB BLOOD ORDERABLES Final Result Performing Organization Address [facility] de Phone Number [facility] [address] [facility] [place] [address] * (ABNORMAL) aPTT (01/14/2025 5:37 AM CDT) aPTT 25(L) 26 - 38 sec Comment: Interpretive Data Heparin therapeutic range: 66.0 - 100.0 seconds. Range based on correlation with therapeutic heparin activity range of 0.3 - 0.7 Units/mL. Current interpretive data was last revised on 2022. Blood 01/14/2025 5:37 AM CDT 01/14/2025 5:48 AM CDT Pop Villar NP LAB BLOOD ORDERABLES Final Result Performing Organization Address [facility] Phone Number [facility] [address] [place] [address] * Protime-INR (01/14/2025 5:37 AM CDT) PT 12.1 10.2 - 13.5 sec INR 1.07 0.90 - 1.20 [facility] Comment: Interpretive data Oral anticoagulant therapeutic ranges: Venous thromboembolism prophylaxis or treatment: 2.0-3.0 CARDIOLOGY Standard range: 2.0-3.0 High-intensity range: 2.5-3.5 Refer to indication-specific guidelines for appropriate target ranges for prosthetic heart valve replacement. Current interpretive data was last revised on 2019. Blood 01/14/2025 5:37 AM CDT 01/14/2025 5:48 AM CDT us Pop Villar TECHNICAL SUPPORT REPRESENTATIVE LAB BLOOD ORDERABLES Final Result Performing Organization Address City/[facility]/ZIP Co de Phone Number [facility] [place] [address] Department [place] [address] * (ABNORMAL) CBC without differential (01/14/2025 5:37 AM CDT) WBC 11.83(H) 3.80 - 9.90 K/cumm Hgb 10.3(L) 13.0 - 17.5 g/dL [facility] Hct 31.7(L) 38.9 - 50.3 % [facility] Plt 282 150 - 400 K/cumm [facility] MPV 9.3 9.1 - 12.3 fL [facility] RBC 3.69(L) 4.30 - 5.80 M/cumm [facility] MCV 85.9 81.3 - 96.4 fL [facility] MCH 27.9 27.1 - 33.3 pg [facility] MCHC 32.5 32.3 - 35.7 g/dL [facility] RDW CV 14.5 11.1 - 14.9 % [facility] RDW SD 44.8 35.7 - 48.1 fL [facility] NRBC abs 0.00 0.00 - 0.01 K/cumm [facility] Blood 01/14/2025 5:37 AM CDT 01/14/2025 5:48 AM CDT us Esteban Fairchild MD LAB BLOOD ORDERABLES Final R esult Performing Organization Address City/[facility]/ZIP Co de Phone Number [facility] [place] [address] Department [place] [address] * (ABNORMAL) Basic metabolic panel (01/14/2025 5:37 AM CDT) Sodium 134(L) 135 - 145 mmol/L Potassium, pl 4.2 3.3 - 4.9 mmol/L [facility] Chloride 95(L) 97 - 110 mmol/L [facility] CO2 27 22 - 32 mmol/L [facility] Anion gap 12 2 - 15 mmol/L [facility] BUN 51(H) 6 - 25 mg/dL [facility] Creatinine 1.02 0.80 - 1.30 mg/dL [facility] Glucose 153 70 - 199 mg/dL [facility] Comment: Interpretive Data Fasting glucose >/= 126 mg/dl is diagnostic for diabetes. Fasting is defined as no caloric intake for at least 8 hours. Fasting glucose between 100 mg/dl to 125 mg/dl is diagnostic of prediabetes. In a patient with classic symptoms of hyperglycemia or hyperglycemic crisis, a random glucose >/= 200 mg/dl is diagnostic for diabetes. In the absence of unequivocal hyperglycemia, results should be confirmed by repeat testing. The classification and Diagnosis of Diabetes Diabetes Care 2021; 46: S19-S40. Current interpretive data was last revised 2022. Calcium 9.0 8.5 - 10.3 mg/dL [facility] Blood 01/14/2025 5:37 AM CDT 01/14/2025 5:47 AM CDT us Pop Villar NP LAB BLOOD ORDERABLES Final Result Performing Organization Address City/[facility]/ZIP Co de Phone Number [facility] [address] [place], [place] [id number] * POCT glucose (01/13/2025 8:04 PM CDT) Glucose, POC 191 70 - 199 mg/dL Blood 01/13/2025 8:04 PM CDT 01/13/2025 8:04 PM CDT Esteban Fairchild MD LAB POCT ORDERABLES - DEVICE Final Result [facility] [address] Department [employer] [place], [place] [id number] * (ABNORMAL) POCT glucose (01/13/2025 5:39 PM CDT) Glucose, POC 235(H) 70 - 199 mg/dL Blood 01/13/2025 5:39 PM CDT 01/13/2025 5:39 PM CDT Esteban Fairchild MD LAB POCT ORDERABLES - DEVICE Final Result Performing Organization Address City/[facility] Co de Phone Number [facility] [place] [address] [facility] [place] [address] * POCT glucose (01/13/2025 12:48 PM CDT) Glucose, POC 141 70 - 199 mg/dL Blood 01/13/2025 12:4 8 PM CDT 01/13/2025 12:48 PM CDT Esteban Fairchild MD LAB POCT ORDERABLES - DEVICE Final Result Performing Organization Address [facility] Co de Phone Number [facility] [place] [address] [facility] [place] [address] * POCT glucose (01/13/2025 7:45 AM CDT) Glucose, POC 180 70 - 199 mg/dL Blood 01/13/2025 7:45 AM CDT 01/13/2025 7:45 AM CDT Esteban Fairchild MD LAB POCT ORDERABLES - DEVICE Final Result Performing Organization Address [facility] de Phone Number [facility] [place] [address] [facility] [place] [address] * XR Chest 1 View (01/13/2025 6:14 AM CDT) Anatomical Region Laterality Modality Body, Chest N/A Computed Radiogr aphy 01/13/2025 9:20 AM CDT Impressions 01/13/2025 9:20 AM CDT FINDINGS/IMPRESSION: Median sternotomy wires are redemonstrated. Right internal jugular approach central venous catheter tip projects over the superior cavoatrial junction. Left basilar mild atelectasis. No visible pleural effusion or pneumothorax. The cardiac silhouette is again enlarged. Aortic atherosclerosis. Electronically signed by: Rola Evans DO Narrative 01/13/2025 9:20 AM CDT EXAM: XR CHEST 1 VIEW, 01/13/2025 5:15 AM HISTORY: s/p CABG COMPARISON: Chest radiograph dated 01/12/2025 Procedure Note Rola Potter DO - 01/13/2025 EXAM: XR CHEST 1 VIEW, 01/13/2025 5:15 AM HISTORY: s/p CABG COMPARISON: Chest radiograph dated 01/12/2025 IMPRESSION: FINDINGS/IMPRESSION: Median sternotomy wires are redemonstrated. Right internal jugular approach central venous catheter tip projects over the superior cavoatrial junction. Left basilar mild atelectasis. No visible pleural effusion or pneumothorax. The cardiac silhouette is again enlarged. Aortic atherosclerosis. Electronically signed by: Rola Evans DO Pop Villar TECHNICAL SUPPORT REPRESENTATIVE IMG XR PROCEDURES Final Res ult * eGFR (01/13/2025 5:05 AM CDT) eGFR 78 >=60 mL/min/1. 73 m2 Comment: Interpretive Data [...] interpretive data was last reviewed 2021. Blood 01/13/2025 5:05 AM CDT 01/13/2025 5:16 AM CDT us Esteban Fairchild MD LAB BLOOD ORDERABLES Final R esult Performing Organization Address City/[facility]/ZIP Co de Phone Number [facility] [place] [address] Department of [employer] [place], [place] [id number] * (ABNORMAL) CBC without differential (01/13/2025 5:05 AM CDT) WBC 10.71(H) 3.80 - 9.90 K/cumm Hgb 10.3(L) 13.0 - 17.5 g/dL [facility] Hct 31.7(L) 38.9 - 50.3 % [facility] Plt 253 150 - 400 K/cumm [facility] MPV 9.4 9.1 - 12.3 fL [facility] RBC 3.69(L) 4.30 - 5.80 M/cumm [facility] MCV 85.9 81.3 - 96.4 fL [facility] MCH 27.9 27.1 - 33.3 pg [facility] MCHC 32.5 32.3 - 35.7 g/dL [facility] RDW CV 14.4 11.1 - 14.9 % [facility] RDW SD 44.5 35.7 - 48.1 fL [facility] NRBC abs 0.00 0.00 - 0.01 K/cumm [facility] Blood 01/13/2025 5:05 AM CDT 01/13/2025 5:16 AM CDT us Esteban Fairchild MD LAB BLOOD ORDERABLES Final R esult [facility] [place] [address] Department [place] [address] * (ABNORMAL) Basic metabolic panel (01/13/2025 5:05 AM CDT) Sodium 137 135 - 145 mmol/L Potassium, pl 3.9 3.3 - 4.9 mmol/L [facility] Chloride 96(L) 97 - 110 mmol/L [facility] CO2 27 22 - 32 mmol/L [facility] Anion gap 14 2 - 15 mmol/L [facility] BUN 67(H) 6 - 25 mg/dL [facility] Creatinine 1.08 0.80 - 1.30 mg/dL [facility] Glucose 140 70 - 199 mg/dL [facility] Comment: Interpretive Data Fasting glucose >/= 126 mg/dl is diagnostic for diabetes. Fasting is defined as no caloric intake for at least 8 hours. Fasting glucose between 100 mg/dl to 125 mg/dl is diagnostic of prediabetes. In a patient with classic symptoms of hyperglycemia or hyperglycemic crisis, a random glucose >/= 200 mg/dl is diagnostic for diabetes. In the absence of unequivocal hyperglycemia, results should be confirmed by repeat testing. The classification and Diagnosis of Diabetes Diabetes Care 2021; 46: S19-S40. Current interpretive data was last revised 2022. Calcium 9.1 8.5 - 10.3 mg/dL [facility] Blood 01/13/2025 5:05 AM CDT 01/13/2025 5:16 AM CDT Esteban Fairchild MD LAB BLOOD ORDERABLES Final R esult Performing Organization Address City/[facility]/ZIP Co de Phone Number [facility] [place] [address] [place] [address] * POCT glucose (01/12/2025 9:29 PM CDT) Glucose, POC 182 70 - 199 mg/dL Blood 01/12/2025 9:29 PM CDT 01/12/2025 9:29 PM CDT Esteban Fairchild MD LAB POCT ORDERABLES - DEVICE Final Result Performing Organization Address City/[facility]/ZIP Co de Phone Number [facility] [address] [place] [address] * POCT glucose (01/12/2025 4:44 PM CDT) Glucose, POC 180 70 - 199 mg/dL Blood 01/12/2025 4:44 PM CDT 01/12/2025 4:44 PM CDT us Esteban Fairchild MD LAB POCT ORDERABLES - DEVICE Final Result Performing Organization Address City/[facility] Co de Phone Number [facility] [address] Department [place] [address] * (ABNORMAL) POCT glucose (01/12/2025 12:07 PM CDT) Glucose, POC 284(H) 70 - 199 mg/dL Blood 01/12/2025 12:0 7 PM CDT 01/12/2025 12:07 PM CDT us Esteban Fairchild MD LAB POCT ORDERABLES - DEVICE Final Result Performing Organization Address [facility] de Phone Number [facility] [place] [address] [place] [address] * XR Chest 1 View (01/12/2025 11:23 AM CDT) Anatomical Region Laterality Modality Body, Chest N/A Computed Radiogr aphy 01/12/2025 1:09 PM CDT Impressions 01/12/2025 1:09 PM CDT Cardiomegaly with no failure. Electronically signed by: Summer Nayak M.D. Narrative 01/12/2025 1:09 PM CDT EXAMINATION: XR CHEST 1 VIEW HISTORY: The patient is a 59-year-old male who presents with shortness of breath. Comparison made with the previous study dated 01/11/2025. TECHNIQUE: AP portable view of the chest. FINDINGS: The distal tip of the right IJ line is in the superior vena cava. Cardiomegaly with aortic atherosclerosis. No failure. No active infiltrate. Procedure Note Summer Nayak MD - 01/12/2025 EXAMINATION: XR CHEST 1 VIEW HISTORY: The patient is a 59-year-old male who presents with shortness of breath. Comparison made with the previous study dated 01/11/2025. TECHNIQUE: AP portable view of the chest. FINDINGS: The distal tip of the right IJ line is in the superior vena cava. Cardiomegaly with aortic atherosclerosis. No failure. No active infiltrate. IMPRESSION: Cardiomegaly with no failure. Electronically signed by: Summer Nayak M.D. us Pop Villar TECHNICAL SUPPORT REPRESENTATIVE IMG XR PROCEDURES Final Res ult * POCT glucose (01/12/2025 8:56 AM CDT) Glucose, POC 156 70 - 199 mg/dL Blood 01/12/2025 8:56 AM CDT 01/12/2025 8:56 AM CDT us Esteban Fairchild MD LAB POCT ORDERABLES - DEVICE Final Result Performing Organization Address City/State/[facility] Co [place] Phone Number [facility] [address] [facility] Department of Laboratories [place] [phone] * TRANSTHORACIC ECHO (TTE) COMPLETE W DOPPLER/CF W CONTRAST (01/12/2025 8:30 AM CDT) EF Mod BP 68 % CONS SCIMAGE Anatomical Region Laterality Modality Ultrasound 01/12/2025 7:34 AM CDT Narrative 01/12/2025 9:18 AM CDT [place] [phone] Echocardiogram Report Patient Name: CARI LAM G : 1965 Study Date: 01/12/2025 7:34:25 AM Sex: M Tech: BE Location: [id number] Ref Provider: POP VILLAR Height(Cm): 172 BSA: 2.29 Weight(Kg): 110 Heart Rate: 90 BP: 111 / 68 Quality: Good Order Provider: POP VILLAR PROCEDURES: Echocardiographic Report: Transthoracic echocardiogram with complete 2D, M-Mode, color Doppler examination and contrast. INDICATIONS: S/P AVR. MEASUREMENTS: 2D/MM Value Range Doppler Value Range EF Teich 2D 68.0 percent [ 52.0 - 72.0 ] RUBENS Vmax 3.73 cm2 EF Mod BP 68 % [ 52 - 72 ] AV VTI 39.20 cm LVIDd 2D 4.32 cm [ 4.20 - 5.80 ] LVOT Diam 2.21 cm LVIDs 2D 3.12 cm [ 2.50 - 4.00 ] LVOT Peak Bret 0.99 m/s [ 0.70 - 1.10 ] LVPWd 2D 1.39 cm [ 0.60 - 1.00 ] LVOT VTI 15.02 cm IVSd 2D 1.64 cm [ 0.60 - 1.00 ] SI LVOT 44.1 ml/m2 [ >= 35.0 ] LA Dimension 2D 4.37 cm [ 3.00 - 4.00 ] MV E Peak Bret 0.78 m/s [ 0.60 - 1.30 ] AoR Diam 2D 3.22 cm [ 3.10 - 3.70 ] MV A Peak Bret 1.02 m/s [ 1.00 - 1.20 ] LA Volume Index 31.85 cc/m2 [ 16.00 - 34.00 ] MV Mean PG 3 mmHg MV PHT 78 msec [ 20 - 100 ] MVA PHT 2.83 cm2 MV Decel Time 268 msec [ 104 - 258 ] PV Peak Bret 1.22 m/s [ 0.40 - 0.80 ] E` 0.04 m/s E/E` 11.09 2D/MM Value Range Doppler Value Range - FINDINGS: Atrial Septum: Normal atrial septum. Left Ventricle: Optison contrast agent used to visually enhance endocardial wall motion and contractility. Moderate concentric left ventricular hypertrophy. Impaired diastolic relaxation Grade I. Ejection fraction is measured at 68 %. Left Atrium: There is mild enlargement of left atrium. Right Ventricle: Normal right ventricular size. Normal right ventricular systolic function. Right Atrium: The right atrium is normal in size. Aortic Valve: Normal appearing aortic valve bioprosthesis. Mitral Valve: Normal structure of the mitral valve. Pulmonic Valve: Normal structure of the pulmonic valve. Tricuspid Valve: Normal structure of the tricuspid valve. Normal right ventricular systolic pressure. Pericardium: Normal pericardium with no significant pericardial effusion. Aorta: Normal aortic root. IVC: Normal size and normal respiratory collapse consistent with normal right atrial pressure (<5 mmHg). Pulmonary Artery: Normal pulmonary artery size. CONCLUSIONS: Optison contrast agent used to visually enhance endocardial wall motion and contractility. Moderate concentric left ventricular hypertrophy. Impaired diastolic relaxation Grade I. Ejection fraction is measured at 68 %. There is mild enlargement of left atrium. Normal appearing aortic valve bioprosthesis. Electronically Signed By: Gabrielle Hamilton MD 01/12/2025 9:17:36 AM CDT Procedure Note Barby Hamilton MD - 01/12/2025 [place] [address] Echocardiogram Report Patient Name: CARI LAM G : 1965 Study Date: 01/12/2025 7:34:25 AM Sex: M Tech: Location: [place] [address] Ref Provider: POP VILLAR Height(Cm): 172 BSA: 2.29 Weight(Kg): 110 Heart Rate: 90 BP: 111 / 68 Quality: Good Order Provider: POP VILLAR PROCEDURES: Echocardiographic Report: Transthoracic echocardiogram with complete 2D, M-Mode, color Dopplerexamination and contrast. INDICATIONS: S/P AVR. MEASUREMENTS: 2D/MM Value Range DopplerValue Range EF Teich 2D 68.0 percent [ 52.0 - 72.0 ] RUBENS Vmax3.73 cm2 EF Mod BP 68 % [ 52 - 72 ] AV VTI39.20 cm LVIDd 2D 4.32 cm [ 4.20 - 5.80 ] LVOT Diam2.21 cm LVIDs 2D 3.12 cm [ 2.50 - 4.00 ] LVOT Peak Vel0.99 m/s [ 0.70 - 1.10 ] LVPWd 2D 1.39 cm [ 0.60 - 1.00 ] LVOT VTI15.02 cm IVSd 2D 1.64 cm [ 0.60 - 1.00 ] SI LVOT44.1 ml/m2 [ >= 35.0 ] LA Dimension 2D 4.37 cm [ 3.00 - 4.00 ] MV E Peak Vel0.78 m/s [ 0.60 - 1.30 ] AoR Diam 2D 3.22 cm [ 3.10 - 3.70 ] MV A Peak Vel1.02 m/s [ 1.00 - 1.20 ] LA Volume Index 31.85 cc/m2 [ 16.00 - 34.00 ] MV Mean PG 3mmHg MV PHT 78 msec [ 20 - 100 ] MVA PHT 2.83 cm2 MV Decel Time 268 msec [ 104 - 258 ] PV Peak Bret 1.22 m/s [ 0.40 - 0.80 ] E` 0.04 m/s E/E` 11.09 2D/MM Value Range DopplerValue Range - FINDINGS: Atrial Septum: Normal atrial septum. Left Ventricle: Optison contrast agent used to visually enhance endocardial wall motionand contractility. Moderate concentric left ventricular hypertrophy. Impaireddiastolic relaxation Grade I. Ejection fraction is measured at 68 %. Left Atrium: There is mild enlargement of left atrium. Right Ventricle: Normal right ventricular size. Normal right ventricular systolicfunction. Right Atrium: The right atrium is normal in size. Aortic Valve: Normal appearing aortic valve bioprosthesis. Mitral Valve: Normal structure of the mitral valve. Pulmonic Valve: Normal structure of the pulmonic valve. Tricuspid Valve: Normal structure of the tricuspid valve. Normal right ventricular systolicpressure. Pericardium: Normal pericardium with no significant pericardial effusion. Aorta: Normal aortic root. IVC: Normal size and normal respiratory collapse consistent with normal rightatrial pressure (<5 mmHg). Pulmonary Artery: Normal pulmonary artery size. CONCLUSIONS: Optison contrast agent used to visually enhance endocardial wall motionand contractility. Moderate concentric left ventricular hypertrophy. Impaireddiastolic relaxation Grade I. Ejection fraction is measured at 68 %. There is mild enlargement of left atrium. Normal appearing aortic valve bioprosthesis. Electronically Signed By: Gabrielle Hamilton MD 01/12/2025 9:17:36 AM CDT us Pop Villar NP CV ECHO PROCEDURES Final Re sult * Critical Care (01/12/2025 7:08 AM CDT) Narrative Mariam Sloan DO - 01/12/2025 7:08 AM CDT Mariam Sloan DO 01/12/2025 2:39 PM Critical Care Performed by: Ruben Harris NP Authorized by: Ruben Harris NP CRITICAL CARE: Team: YANE Shift: AM Level of Billing: Subsequent Hospital Visit Level 3 My time spent with this patient was 35 minutes: Critical Provider Statement: I have seen and examined the patient on this day of service. I have reviewed and confirmed the history, physical exam, laboratory, and radiographic data as documented in the ICU note. I have reviewed and discussed my treatment plan with the patient's team and other medical/communications consultant staff. This time was in addition to and separate from care provided by other practitioners on this day of service. I spent time reviewing and interpreting data from bedside monitors, laboratory results, and imaging and I spent time documenting in the medical record us Ruben Harris TECHNICAL SUPPORT REPRESENTATIVE IN CLINIC/BEDSIDE ORDERABLES Final Result * POCT glucose (01/12/2025 4:17 AM CDT) Glucose, POC 130 70 - 199 mg/dL Blood 01/12/2025 4:17 AM CDT 01/12/2025 4:17 AM CDT us Esteban Fairchild MD LAB POCT ORDERABLES - DEVICE Final Result [place] [address] [place] [address] * eGFR (01/12/2025 2:30 AM CDT) eGFR 65 >=60 mL/min/1. 73 m2 Comment: Interpretive Data [...] interpretive data was last reviewed 2021. Blood 01/12/2025 2:30 AM CDT 01/12/2025 2:34 AM CDT us Esteban Fairchild MD LAB BLOOD ORDERABLES Final R esult [place] [address] [place] [address] * (ABNORMAL) CBC without differential (01/12/2025 2:30 AM CDT) WBC 12.62(H) 3.80 - 9.90 K/cumm Hgb 9.8(L) 13.0 - 17.5 g/dL [facility] Hct 30.1(L) 38.9 - 50.3 % [facility] Plt 200 150 - 400 K/cumm [facility] MPV 9.3 9.1 - 12.3 fL [facility] RBC 3.53(L) 4.30 - 5.80 M/cumm [facility] MCV 85.3 81.3 - 96.4 fL [facility] MCH 27.8 27.1 - 33.3 pg [facility] MCHC 32.6 32.3 - 35.7 g/dL [facility] RDW CV 14.5 11.1 - 14.9 % [facility] RDW SD 45.0 35.7 - 48.1 fL [facility] NRBC abs 0.00 0.00 - 0.01 K/cumm [facility] Blood 01/12/2025 2:30 AM CDT 01/12/2025 2:35 AM CDT Esteban Fairchild MD LAB BLOOD ORDERABLES Final R esult Performing Organization Address [facility] Co de Phone Number [facility] [address] [facility] [place] [address] * (ABNORMAL) Phosphorus (01/12/2025 2:30 AM CDT) Phosphorus, pl 4.7(H) 2.3 - 4.5 mg/dL Blood 01/12/2025 2:30 AM CDT 01/12/2025 8:36 AM CDT Amalia Roper NP LAB BLOOD ORDERABL ES Final Result Performing Organization Address [facility] de Phone Number [facility] [address] [place] [address] * Magnesium (01/12/2025 2:30 AM CDT) Magnesium 2.1 1.4 - 2.5 mg/dL Blood 01/12/2025 2:30 AM CDT 01/12/2025 8:36 AM CDT Amalia Roper NP LAB BLOOD ORDERABL ES Final Result Performing Organization Address [facility] Co de Phone Number [facility] [address] [place] [address] * (ABNORMAL) Basic metabolic panel (01/12/2025 2:30 AM CDT) Sodium 135 135 - 145 mmol/L Potassium, pl 3.3 3.3 - 4.9 mmol/L [facility] Chloride 93(L) 97 - 110 mmol/L [facility] CO2 27 22 - 32 mmol/L [facility] Anion gap 15 2 - 15 mmol/L [facility] BUN 73(H) 6 - 25 mg/dL [facility] Creatinine 1.26 0.80 - 1.30 mg/dL [facility] Glucose 124 70 - 199 mg/dL [facility] Comment: Interpretive Data Fasting glucose >/= 126 mg/dl is diagnostic for diabetes. Fasting is defined as no caloric intake for at least 8 hours. Fasting glucose between 100 mg/dl to 125 mg/dl is diagnostic of prediabetes. In a patient with classic symptoms of hyperglycemia or hyperglycemic crisis, a random glucose >/= 200 mg/dl is diagnostic for diabetes. In the absence of unequivocal hyperglycemia, results should be confirmed by repeat testing. The classification and Diagnosis of Diabetes Diabetes Care 2021; 46: S19-S40. Current interpretive data was last revised 2022. Calcium 9.0 8.5 - 10.3 mg/dL [facility] Blood 01/12/2025 2:30 AM CDT 01/12/2025 2:34 AM CDT us Esteban Fairchild MD LAB BLOOD ORDERABLES Final R esult [facility] [address] [place] [address] * POCT glucose (01/11/2025 11:46 PM CDT) Glucose, POC 139 70 - 199 mg/dL Blood 01/11/2025 11:4 6 PM CDT 01/11/2025 11:46 PM CDT Esteban Fairchild MD LAB POCT ORDERABLES - DEVICE Final Result Performing Organization Address City/State/[facility] Co de Phone Number [place] [address] [place] [address] * POCT glucose (01/11/2025 8:56 PM CDT) Glucose, POC 147 70 - 199 mg/dL Blood 01/11/2025 8:56 PM CDT 01/11/2025 8:56 PM CDT Esteban Fairchild MD LAB POCT ORDERABLES - DEVICE Final Result Performing Organization Address [facility] de Phone Number [place] [address] [place] [address] * POCT glucose (01/11/2025 4:06 PM CDT) Glucose, POC 154 70 - 199 mg/dL Blood 01/11/2025 4:06 PM CDT 01/11/2025 4:06 PM CDT Esteban Fairchild MD LAB POCT ORDERABLES - DEVICE Final Result Performing Organization Address [facility] de Phone Number [place] [address] [place] [address] * (ABNORMAL) POCT glucose (01/11/2025 12:15 PM CDT) Glucose, POC 281(H) 70 - 199 mg/dL Blood 01/11/2025 12:1 5 PM CDT 01/11/2025 12:15 PM CDT Esteban Fairchild MD LAB POCT ORDERABLES - DEVICE Final Result Performing Organization Address [facility] Co de Phone Number [place] [address] [facility] [place] [address] * POCT glucose (01/11/2025 8:18 AM CDT) Glucose, POC 177 70 - 199 mg/dL Blood 01/11/2025 8:18 AM CDT 01/11/2025 8:18 AM CDT us Esteban Fairchild MD LAB POCT ORDERABLES - DEVICE Final Result Performing Organization Address City/State/ZIP Co az Phone Number [place] [address] [facility] [place] [address] * Critical Care (01/11/2025 7:40 AM CDT) Narrative Hellen Gauthier DO - 01/11/2025 7:40 AM CDT Hellen Gauthier DO 01/11/2025 12:53 PM Critical Care Performed by: Hellen Gauthier DO Authorized by: Hellen Gauthier DO CRITICAL CARE: Team: YANE Shift: AM Level of Billing: Critical Care My time spent with this patient was 30 minutes: Critical Provider Statement: I have seen and examined the patient on this day of service. I have reviewed and confirmed the history, physical exam, laboratory and radiologic data as documented in the signed ICU note. I have reviewed and discussed my treatment plan with the ICU team and other medical/communications consultant staff, making frequent assessments and decisions regarding this patient's complex medical care. Critical Care time was exclusive of time spent performing separately billed procedures, treating other patients, and teaching. This time was in addition to and separate from critical care provided by other practitioners in my group on this day of service. Critical Care was necessary to treat or prevent imminent or life-threatening deterioration of the following conditions: I spent time discussing the management of this critically ill patient with consultants and the medical staff, I spent time reviewing and interpreting data from bedside monitors, laboratory results, and imaging and I spent time documenting in the medical record us Hellen Gauthier DO IN CLINIC/BEDSIDE ORDE JORGE Final Result * XR Chest 1 Vw Portable (01/11/2025 6:51 AM CDT) Anatomical Region Laterality Modality Body, Chest N/A Computed Radiogr aphy 01/11/2025 8:31 AM CDT Impressions 01/11/2025 8:31 AM CDT Right IJ central venous catheter terminates in the superior cavoatrial junction. Poststernotomy changes. No cardiomegaly. No acute osseous abnormality. No consolidation or pneumothorax. Electronically signed by: Fan Styles II, D.O. Narrative 01/11/2025 8:31 AM CDT Examination: XR CHEST 1 VIEW Date: 01/11/2025 4:55 AM History: CTS patient. Comparison: 01/10/2025. Procedure Note Fan Styles II, DO - 01/11/2025 Examination: XR CHEST 1 VIEW Date: 01/11/2025 4:55 AM History: CTS patient. Comparison: 01/10/2025. IMPRESSION: Right IJ central venous catheter terminates in the superior cavoatrial junction. Poststernotomy changes. No cardiomegaly. No acute osseous abnormality. No consolidation or pneumothorax. Electronically signed by: Fan Styles II, D.O. Esteban Fairchild MD IMG XR PROCEDURES Final Resu lt * Calcium, ionized, whole blood (01/11/2025 6:11 AM CDT) Pathologist [facility] Ca, ionized, bld 4.77 4.50 - 5.10 mg/dL Blood 01/11/2025 6:11 AM CDT 01/11/2025 6:14 AM CDT Esteban Fairchild MD LAB BLOOD ORDERABLES Final R esult [place] [address] [place] [address] * eGFR (01/11/2025 6:08 AM CDT) Pathologist [facility] eGFR 66 >=60 mL/min/1. 73 m2 Comment: Interpretive Data [...] interpretive data was last reviewed 2021. Blood 01/11/2025 6:08 AM CDT 01/11/2025 6:14 AM CDT us Esteban Fairchild MD LAB BLOOD ORDERABLES Final R esult [facility] [address] [place] [address] * (ABNORMAL) CBC without differential (01/11/2025 6:08 AM CDT) WBC 11.05(H) 3.80 - 9.90 K/cumm Hgb 10.0(L) 13.0 - 17.5 g/dL [facility] Hct 30.0(L) 38.9 - 50.3 % [facility] Plt 166 150 - 400 K/cumm [facility] MPV 9.3 9.1 - 12.3 fL [facility] RBC 3.56(L) 4.30 - 5.80 M/cumm [facility] MCV 84.3 81.3 - 96.4 fL [facility] MCH 28.1 27.1 - 33.3 pg [facility] MCHC 33.3 32.3 - 35.7 g/dL [facility] RDW CV 14.6 11.1 - 14.9 % [facility] RDW SD 45.4 35.7 - 48.1 fL [facility] NRBC abs 0.00 0.00 - 0.01 K/cumm [facility] Blood 01/11/2025 6:08 AM CDT 01/11/2025 6:17 AM CDT Esteban Fairchild MD LAB BLOOD ORDERABLES Final R esult Performing Organization Address City/[facility]/ZIP Co de Phone Number [place] [address] [facility] [place] [address] * Magnesium (01/11/2025 6:08 AM CDT) Pathologist [facility] Magnesium 2.1 1.4 - 2.5 mg/dL Blood 01/11/2025 6:08 AM CDT 01/11/2025 6:15 AM CDT Esteban Fairchild MD LAB BLOOD ORDERABLES Final R [facility] Performing Organization Address [facility] Co de Phone Number [place] [address] [place] [address] * (ABNORMAL) Basic metabolic panel (01/11/2025 6:08 AM CDT) Pathologist [facility] Sodium 137 135 - 145 mmol/L Potassium, pl 3.7 3.3 - 4.9 mmol/L [facility] Chloride 97 97 - 110 mmol/L [facility] CO2 27 22 - 32 mmol/L [facility] Anion gap 13 2 - 15 mmol/L [facility] BUN 59(H) 6 - 25 mg/dL [facility] Creatinine 1.25 0.80 - 1.30 mg/dL [facility] Glucose 145 70 - 199 mg/dL [facility] Comment: Interpretive Data Fasting glucose >/= 126 mg/dl is diagnostic for diabetes. Fasting is defined as no caloric intake for at least 8 hours. Fasting glucose between 100 mg/dl to 125 mg/dl is diagnostic of prediabetes. In a patient with classic symptoms of hyperglycemia or hyperglycemic crisis, a random glucose >/= 200 mg/dl is diagnostic for diabetes. In the absence of unequivocal hyperglycemia, results should be confirmed by repeat testing. The classification and Diagnosis of Diabetes Diabetes Care 202; 46: S19-S40. Current interpretive data was last revised 2022. Calcium 9.2 8.5 - 10.3 mg/dL [facility] Blood 01/11/2025 6:08 AM CDT 01/11/2025 6:14 AM CDT Esteban Fairchild MD LAB BLOOD ORDERABLES Final R esult Performing Organization Address [facility] Co de Phone Number [place] [address] [facility] [place] [address] * POCT glucose (01/11/2025 4:39 AM CDT) Glucose, POC 140 70 - 199 mg/dL Blood 01/11/2025 4:39 AM CDT 01/11/2025 4:39 AM CDT Esteban Fairchild MD LAB POCT ORDERABLES - DEVICE Final Result Performing Organization Address [facility] de Phone Number [facility] [address] [place] [address] * POCT glucose (01/11/2025 12:26 AM CDT) Glucose, POC 145 70 - 199 mg/dL Blood 01/11/2025 12:2 6 AM CDT 01/11/2025 12:26 AM CDT Esteban Fairchild MD LAB POCT ORDERABLES - DEVICE Final Result Performing Organization Address [facility] de Phone Number [place] [address] [facility] [place] [address] * (ABNORMAL) Calcium, ionized, whole blood (01/10/2025 11:44 PM CDT) Ca, ionized, bld 4.39(L) 4.50 - 5.10 mg/dL Blood 01/10/2025 11:4 4 PM CDT 01/10/2025 11:48 PM CDT Esteban Fairchild MD LAB BLOOD ORDERABLES Final R esult Performing Organization Address City/[facility] Co de Phone Number [place] [address] [place] [address] * (ABNORMAL) eGFR (01/10/2025 11:44 PM CDT) eGFR 56(L) >=60 mL/min/1. 73 m2 Comment: Interpretive Data [...] interpretive data was last reviewed 2021. Blood 01/10/2025 11:4 4 PM CDT 01/11/2025 12:01 AM CDT us Esteban Fairchild MD LAB BLOOD ORDERABLES Final R esult Performing Organization Address City/[facility]/ZIP Co de Phone Number [place] [address] [place] [address] * Magnesium (01/10/2025 11:44 PM CDT) Magnesium 2.1 1.4 - 2.5 mg/dL Blood 01/10/2025 11:4 4 PM CDT 01/10/2025 11:48 PM CDT Esteban Fairchild MD LAB BLOOD ORDERABLES Final R esult [place] [address] [place] [address] * (ABNORMAL) Basic metabolic panel (01/10/2025 11:44 PM CDT) Sodium 138 135 - 145 mmol/L Potassium, pl 3.2(L) 3.3 - 4.9 mmol/L [facility] Chloride 97 97 - 110 mmol/L [facility] CO2 26 22 - 32 mmol/L [facility] Anion gap 15 2 - 15 mmol/L [facility] BUN 62(H) 6 - 25 mg/dL [facility] Creatinine 1.43(H) 0.80 - 1.30 mg/dL [facility] Glucose 156 70 - 199 mg/dL [facility] Comment: Interpretive Data Fasting glucose >/= 126 mg/dl is diagnostic for diabetes. Fasting is defined as no caloric intake for at least 8 hours. Fasting glucose between 100 mg/dl to 125 mg/dl is diagnostic of prediabetes. In a patient with classic symptoms of hyperglycemia or hyperglycemic crisis, a random glucose >/= 200 mg/dl is diagnostic for diabetes. In the absence of unequivocal hyperglycemia, results should be confirmed by repeat testing. The classification and Diagnosis of Diabetes Diabetes Care 2021; 46: S19-S40. Current interpretive data was last revised 2022. Calcium 8.8 8.5 - 10.3 mg/dL [facility] Blood 01/10/2025 11:4 4 PM CDT 01/10/2025 11:48 PM CDT Esteban Fairchild MD LAB BLOOD ORDERABLES Final R esult [place] [address] [place] [address] * (ABNORMAL) Calcium, ionized, whole blood (01/10/2025 11:35 PM CDT) Ca, ionized, bld 4.48(L) 4.50 - 5.10 mg/dL Blood 01/10/2025 11:3 5 PM CDT 01/11/2025 12:12 AM CDT Esteban Fairchild MD LAB BLOOD ORDERABLES Final R esult Performing Organization Address [facility] Co de Phone Number [place] [address] [place] [address] * (ABNORMAL) eGFR (01/10/2025 11:35 PM CDT) eGFR 58(L) >=60 mL/min/1. 73 m2 Comment: Interpretive Data [...] interpretive data was last reviewed 2021. Blood 01/10/2025 11:3 5 PM CDT 01/11/2025 12:12 AM CDT Esteban Fairchild MD LAB BLOOD ORDERABLES Final R esult Performing Organization Address City/[facility]/ZIP Co de Phone Number [place] [address] [place] [address] * Magnesium (01/10/2025 11:35 PM CDT) Magnesium 2.1 1.4 - 2.5 mg/dL Blood 01/10/2025 11:3 5 PM CDT 01/11/2025 12:12 AM CDT Esteban Fairchild MD LAB BLOOD ORDERABLES Final R esult Performing Organization Address City/[facility]/ZIP Co de Phone Number [place] [address] [place] [address] * (ABNORMAL) Basic metabolic panel (01/10/2025 11:35 PM CDT) [facility] Sodium 136 135 - 145 mmol/L Potassium, pl 3.2(L) 3.3 - 4.9 mmol/L [facility] Chloride 94(L) 97 - 110 mmol/L [facility] CO2 25 22 - 32 mmol/L [facility] Anion gap 17(H) 2 - 15 mmol/L [facility] BUN 63(H) 6 - 25 mg/dL [facility] Creatinine 1.39(H) 0.80 - 1.30 mg/dL [facility] Glucose 155 70 - 199 mg/dL [facility] Comment: Interpretive Data Fasting glucose >/= 126 mg/dl is diagnostic for diabetes. Fasting is defined as no caloric intake for at least 8 hours. Fasting glucose between 100 mg/dl to 125 mg/dl is diagnostic of prediabetes. In a patient with classic symptoms of hyperglycemia or hyperglycemic crisis, a random glucose >/= 200 mg/dl is diagnostic for diabetes. In the absence of unequivocal hyperglycemia, results should be confirmed by repeat testing. The classification and Diagnosis of Diabetes Diabetes Care 2021; 46: S19-S40. Current interpretive data was last revised 2022. Calcium 8.7 8.5 - 10.3 mg/dL [facility] Blood 01/10/2025 11:3 5 PM CDT 01/11/2025 12:12 AM CDT Esteban Fairchild MD LAB BLOOD ORDERABLES Final R esult Performing Organization Address [facility] Co de Phone Number [place] [address] [place] [address] * POCT glucose (01/10/2025 8:16 PM CDT) Glucose, POC 143 70 - 199 mg/dL Blood 01/10/2025 8:16 PM CDT 01/10/2025 8:16 PM CDT Esteban Fairchild MD LAB POCT ORDERABLES - DEVICE Final Result Performing Organization Address [facility] Co de Phone Number [place] [address] [facility] [place] [address] * (ABNORMAL) POCT glucose (01/10/2025 4:47 PM CDT) Glucose, POC 217(H) 70 - 199 mg/dL Blood 01/10/2025 4:47 PM CDT 01/10/2025 4:47 PM CDT Esteban Fairchild MD LAB POCT ORDERABLES - DEVICE Final Result Performing Organization Address [facility] Co de Phone Number [facility] [address] [facility] [employer] [place], [place] [address] * (ABNORMAL) POCT glucose (01/10/2025 12:36 PM CDT) Glucose, POC 229(H) 70 - 199 mg/dL Blood 01/10/2025 12:3 6 PM CDT 01/10/2025 12:36 PM CDT Esteban Fairchild MD LAB POCT ORDERABLES - DEVICE Final Result Performing Organization Address City/[facility] Co de Phone Number [facility] [address] [facility] [employer] [place], [place] [address] * POCT glucose (01/10/2025 7:56 AM CDT) Glucose, POC 168 70 - 199 mg/dL Blood 01/10/2025 7:56 AM CDT 01/10/2025 7:56 AM CDT us Esteban Fairchild MD LAB POCT [place]LES [place] [address] [address] [place] [address] * Critical Care (01/10/2025 7:02 AM CDT) Narrative Hellen Gauthier DO - 01/10/2025 7:02 AM CDT Hellen Gauthier DO 01/10/2025 12:51 PM Critical Care Performed by: Hellen Gauthier DO Authorized by: Hellen Gauthier DO CRITICAL CARE: Team: YANE Shift: AM Level of Billing: Critical Care My time spent with this patient was 30 minutes: Critical Provider Statement: I have seen and examined the patient on this day of service. I have reviewed and confirmed the history, physical exam, laboratory and radiologic data as documented in the signed ICU note. I have reviewed and discussed my treatment plan with the ICU team and other medical/communications consultant staff, making frequent assessments and decisions regarding this patient's complex medical care. Critical Care time was exclusive of time spent performing separately billed procedures, treating other patients, and teaching. This time was in addition to and separate from critical care provided by other practitioners in my group on this day of service. Critical Care was necessary to treat or prevent imminent or life-threatening deterioration of the following conditions: I spent time reviewing and interpreting data from bedside monitors, laboratory results, and imaging, I spent time documenting in the medical record and I spent time discussing the management of this critically ill patient with consultants and the medical staff us Hellen Gauthier DO IN CLINIC/BEDSIDE ORDE RABLES Final Result * XR Chest 1 Vw Portable (01/10/2025 4:21 AM CDT) Anatomical Region Laterality Modality Body, Chest N/A Computed Radiogr aphy 01/10/2025 7:28 AM CDT Impressions 01/10/2025 7:28 AM CDT No pneumothorax. Appropriately positioned left thoracostomy. Right IJ central venous catheter terminates in the superior cavoatrial junction. Poststernotomy changes. Cardiac mediastinal silhouette within normal limits. No acute osseous abnormality. Electronically signed by: Fan Styles II, D.O. Narrative 01/10/2025 7:28 AM CDT Examination: XR CHEST 1 VIEW Date: 01/10/2025 4:20 AM History: CTS patient. Comparison: 01/09/2025. Procedure Note Fan Styles II, DO - 01/10/2025 Examination: XR CHEST 1 VIEW Date: 01/10/2025 4:20 AM History: CTS patient. Comparison: 01/09/2025. IMPRESSION: No pneumothorax. Appropriately positioned left thoracostomy. Right IJ central venous catheter terminates in the superior cavoatrial junction. Poststernotomy changes. Cardiac mediastinal silhouette within normal limits. No acute osseous abnormality. Electronically signed by: Fan Styles II, D.O. Esteban Fairchild MD IMG XR PROCEDURES Final Resu lt * (ABNORMAL) CBC without differential (01/10/2025 2:11 AM CDT) WBC 13.81(H) 3.80 - 9.90 K/cumm Hgb 10.1(L) 13.0 - 17.5 g/dL [facility] Hct 30.7(L) 38.9 - 50.3 % [facility] Plt 144(L) 150 - 400 K/cumm [facility] MPV 9.6 9.1 - 12.3 fL [facility] RBC 3.60(L) 4.30 - 5.80 M/cumm [facility] MCV 85.3 81.3 - 96.4 fL [facility] MCH 28.1 27.1 - 33.3 pg [facility] MCHC 32.9 32.3 - 35.7 g/dL [facility] RDW CV 15.0(H) 11.1 - 14.9 % [facility] RDW SD 46.3 35.7 - 48.1 fL [facility] NRBC abs 0.00 0.00 - 0.01 K/cumm [facility] Blood 01/10/2025 2:11 AM CDT 01/10/2025 2:11 AM CDT Esteban Fairchild MD LAB BLOOD ORDERABLES Final R esult Performing Organization Address [facility] Co de Phone Number [place] [address] [place] [address] * eGFR (01/10/2025 2:01 AM CDT) eGFR 64 >=60 mL/min/1. 73 m2 Comment: Interpretive Data [...] interpretive data was last reviewed 2021. Blood 01/10/2025 2:01 AM CDT 01/10/2025 2:19 AM CDT us Esteban Fairchild MD LAB BLOOD ORDERABLES Final R esult [place] [address] [place] [address] * Phosphorus (01/10/2025 2:01 AM CDT) Phosphorus, pl 3.7 2.3 - 4.5 mg/dL Blood 01/10/2025 2:01 AM CDT 01/10/2025 8:32 PM CDT Hellen Gauthier DO LAB BLOOD ORDERABLES F inal Result Performing Organization Address City/[facility]/ZIP Co de Phone Number [place] [address] [place] [address] * (ABNORMAL) Magnesium (01/10/2025 2:01 AM CDT) Magnesium 2.6(H) 1.4 - 2.5 mg/dL Blood 01/10/2025 2:01 AM CDT 01/10/2025 2:10 AM CDT Esteban Fairchild MD LAB BLOOD ORDERABLES Final R esult Performing Organization Address [facility] de Phone Number [place] [address] [place] [address] * (ABNORMAL) Basic metabolic panel (01/10/2025 2:01 AM CDT) Sodium 138 135 - 145 mmol/L Potassium, pl 3.6 3.3 - 4.9 mmol/L [facility] Chloride 100 97 - 110 mmol/L [facility] CH CO2 23 22 - 32 mmol/L [facility] CH Anion gap 15 2 - 15 mmol/L [facility] BUN 48(H) 6 - 25 mg/dL [facility] Creatinine 1.28 0.80 - 1.30 mg/dL [facility] Glucose 146 70 - 199 mg/dL [facility] Comment: Interpretive Data Fasting glucose >/= 126 mg/dl is diagnostic for diabetes. Fasting is defined as no caloric intake for at least 8 hours. Fasting glucose between 100 mg/dl to 125 mg/dl is diagnostic of prediabetes. In a patient with classic symptoms of hyperglycemia or hyperglycemic crisis, a random glucose >/= 200 mg/dl is diagnostic for diabetes. In the absence of unequivocal hyperglycemia, results should be confirmed by repeat testing. The classification and Diagnosis of Diabetes Diabetes Care 2021; 46: S19-S40. Current interpretive data was last revised 2022. Calcium 9.1 8.5 - 10.3 mg/dL [facility] Blood 01/10/2025 2:01 AM CDT 01/10/2025 2:10 AM CDT Esteban Fairchild MD LAB BLOOD ORDERABLES Final R esult Performing Organization Address [facility] Co de Phone Number [place] [address] [employer] [place], [place] [id number] * eGFR (01/09/2025 10:13 PM CDT) eGFR 62 >=60 mL/min/1. 73 m2 Comment: Interpretive Data [...] interpretive data was last reviewed 2021. Blood 01/09/2025 10:1 3 PM CDT 01/09/2025 10:13 PM CDT Esteban Fairchild MD LAB BLOOD ORDERABLES Final R esult Performing Organization Address [facility] Co de Phone Number L[place] [address] [employer] [place], [place] [id number] * (ABNORMAL) Magnesium (01/09/2025 10:13 PM CDT) Magnesium 2.9(H) 1.4 - 2.5 mg/dL Blood 01/09/2025 10:1 3 PM CDT 01/09/2025 10:13 PM CDT Esteban Fairchild MD LAB BLOOD ORDERABLES Final R esult [place] [address] [place] [address] * (ABNORMAL) Basic metabolic panel (01/09/2025 10:13 PM CDT) [facility] Sodium 138 135 - 145 mmol/L Potassium, pl 3.7 3.3 - 4.9 mmol/L [facility] Chloride 100 97 - 110 mmol/L [facility] CO2 23 22 - 32 mmol/L [facility] Anion gap 15 2 - 15 mmol/L [facility] BUN 51(H) 6 - 25 mg/dL [facility] Creatinine 1.30 0.80 - 1.30 mg/dL [facility] Glucose 160 70 - 199 mg/dL [facility] Comment: Interpretive Data Fasting glucose >/= 126 mg/dl is diagnostic for diabetes. Fasting is defined as no caloric intake for at least 8 hours. Fasting glucose between 100 mg/dl to 125 mg/dl is diagnostic of prediabetes. In a patient with classic symptoms of hyperglycemia or hyperglycemic crisis, a random glucose >/= 200 mg/dl is diagnostic for diabetes. In the absence of unequivocal hyperglycemia, results should be confirmed by repeat testing. The classification and Diagnosis of Diabetes Diabetes Care 2021; 46: S19-S40. Current interpretive data was last revised 2022. Calcium 9.1 8.5 - 10.3 mg/dL [facility] Blood 01/09/2025 10:1 3 PM CDT 01/09/2025 10:13 PM CDT us Esteban Fairchild MD LAB BLOOD ORDERABLES Final R esult [place] [place] [address] * (ABNORMAL) POCT glucose (01/09/2025 7:44 PM CDT) Glucose, POC 212(H) 70 - 199 mg/dL Blood 01/09/2025 7:44 PM CDT 01/09/2025 7:44 PM CDT Esteban Fairchild MD LAB POCT ORDERABLES - DEVICE Final Result Performing Organization Address [facility] de Phone Number LEX [address] [facility] [place] [address] * (ABNORMAL) POCT glucose (01/09/2025 4:50 PM CDT) Glucose, POC 216(H) 70 - 199 mg/dL Blood 01/09/2025 4:50 PM CDT 01/09/2025 4:50 PM CDT Esteban Fairchild MD LAB POCT ORDERABLES - DEVICE Final Result Performing Organization Address [facility] de Phone Number SÁ[place] [address] [facility] [place] [address] * (ABNORMAL) Calcium, ionized, whole blood (01/09/2025 4:00 PM CDT) Pathologist [facility] Ca, ionized, bld 3.89(L) 4.50 - 5.10 mg/dL Blood 01/09/2025 4:00 PM CDT 01/09/2025 4:14 PM CDT Esteban Fairchild MD LAB BLOOD ORDERABLES Final R esult Performing Organization Address [facility] de Phone Number S[place] [address] [facility] [place] [address] * eGFR (01/09/2025 4:00 PM CDT) eGFR 90 >=60 mL/min/1. 73 m2 Comment: Interpretive Data [...] interpretive data was last reviewed 2021. Blood 01/09/2025 4:00 PM CDT 01/09/2025 4:14 PM CDT us Esteban Fairchild MD LAB BLOOD ORDERABLES Final R esult [facility] [address] [place] [address] * (ABNORMAL) CBC without differential (01/09/2025 4:00 PM CDT) WBC 16.42(H) 3.80 - 9.90 K/cumm Hgb 10.5(L) 13.0 - 17.5 g/dL [facility] Hct 32.0(L) 38.9 - 50.3 % [facility] Plt 153 150 - 400 K/cumm [facility] MPV 9.7 9.1 - 12.3 fL [facility] RBC 3.73(L) 4.30 - 5.80 M/cumm [facility] MCV 85.8 81.3 - 96.4 fL [facility] MCH 28.2 27.1 - 33.3 pg [facility] MCHC 32.8 32.3 - 35.7 g/dL [facility] RDW CV 15.2(H) 11.1 - 14.9 % [facility] CH RDW SD 47.8 35.7 - 48.1 fL [facility] NRBC abs 0.00 0.00 - 0.01 K/cumm [facility] Blood 01/09/2025 4:00 PM CDT 01/09/2025 4:15 PM CDT Esteban Fairchild MD LAB BLOOD ORDERABLES Final R esult Performing Organization Address [facility] Co de Phone Number [place] [address] [facility] [place] [address] * Phosphorus (01/09/2025 4:00 PM CDT) Pathologist [facility] Phosphorus, pl 2.3 2.3 - 4.5 mg/dL Blood 01/09/2025 4:00 PM CDT 01/09/2025 4:14 PM CDT Esteban Fairchild MD LAB BLOOD ORDERABLES Final R esult Performing Organization Address [facility] de Phone Number [place] [address] [place] [address] * Magnesium (01/09/2025 4:00 PM CDT) Pathologist [facility] Magnesium 1.8 1.4 - 2.5 mg/dL Blood 01/09/2025 4:00 PM CDT 01/09/2025 4:14 PM CDT Esteban Fairchild MD LAB BLOOD ORDERABLES Final R esult Performing Organization Address [facility] de Phone Number [place] [address] [facility] [employer] [place], [place] [id number] * (ABNORMAL) Basic metabolic panel (01/09/2025 4:00 PM CDT) Sodium 142 135 - 145 mmol/L Potassium, pl 3.1(L) 3.3 - 4.9 mmol/L [facility] Chloride 113(H) 97 - 110 mmol/L [facility] CO2 18(L) 22 - 32 mmol/L [facility] Anion gap 11 2 - 15 mmol/L [facility] BUN 40(H) 6 - 25 mg/dL [facility] Creatinine 0.96 0.80 - 1.30 mg/dL [facility] Glucose 170 70 - 199 mg/dL [facility] Comment: Interpretive Data Fasting glucose >/= 126 mg/dl is diagnostic for diabetes. Fasting is defined as no caloric intake for at least 8 hours. Fasting glucose between 100 mg/dl to 125 mg/dl is diagnostic of prediabetes. In a patient with classic symptoms of hyperglycemia or hyperglycemic crisis, a random glucose >/= 200 mg/dl is diagnostic for diabetes. In the absence of unequivocal hyperglycemia, results should be confirmed by repeat testing. The classification and Diagnosis of Diabetes Diabetes Care 2021; 46: S19-S40. Current interpretive data was last revised 2022. Calcium 6.9(L) 8.5 - 10.3 mg/dL [facility] Blood 01/09/2025 4:00 PM CDT 01/09/2025 4:14 PM CDT us Esteban Fairchild MD LAB BLOOD ORDERABLES Final R esult Performing Organization Address City/[facility] Co de Phone Number [place] [address] [place] [address] * POCT glucose (01/09/2025 12:22 PM CDT) Glucose, POC 173 70 - 199 mg/dL Blood 01/09/2025 12:2 2 PM CDT 01/09/2025 12:22 PM CDT Esteban Fairchild MD LAB POCT ORDERABLES - DEVICE Final Result Performing Organization Address [facility] Co de Phone Number [place] [address] [place] [address] * (ABNORMAL) POCT glucose (01/09/2025 7:55 AM CDT) Glucose, POC 226(H) 70 - 199 mg/dL Blood 01/09/2025 7:55 AM CDT 01/09/2025 7:55 AM CDT us Esteban Fairchild MD LAB POCT ORDERABLES - DEVICE Final Result Performing Organization Address City/State/ZIP Co az Phone Number LEX [address] [facility] [place] [address] * Critical Care (01/09/2025 6:58 AM CDT) Narrative Hellen Gauthier DO - 01/09/2025 6:58 AM CDT Hellen Gauthier DO 01/09/2025 3:21 PM Critical Care Performed by: Hellen Gauthier DO Authorized by: Hellen Gauthier DO CRITICAL CARE: Team: YANE Shift: AM Level of Billing: Critical Care My time spent with this patient was 30 minutes: Critical Provider Statement: I have seen and examined the patient on this day of service. I have reviewed and confirmed the history, physical exam, laboratory and radiologic data as documented in the signed ICU note. I have reviewed and discussed my treatment plan with the ICU team and other medical/communications consultant staff, making frequent assessments and decisions regarding this patient's complex medical care. Critical Care time was exclusive of time spent performing separately billed procedures, treating other patients, and teaching. This time was in addition to and separate from critical care provided by other practitioners in my group on this day of service. Critical Care was necessary to treat or prevent imminent or life-threatening deterioration of the following conditions: I spent time reviewing and interpreting data from bedside monitors, laboratory results, and imaging, I spent time discussing the management of this critically ill patient with consultants and the medical staff and I spent time documenting in the medical record us Hellen Gauthier DO IN CLINIC/BEDSIDE RENEE JORGE Final Result * XR Chest 1 View (01/09/2025 6:52 AM CDT) Anatomical Region Laterality Modality Body, Chest N/A Computed Radiogr aphy 01/09/2025 9:01 AM CDT Impressions 01/09/2025 9:01 AM CDT No failure. Electronically signed by: Summer Nayak M.D. Narrative 01/09/2025 9:01 AM CDT EXAMINATION: XR CHEST 1 VIEW HISTORY: The patient is a 59-year-old male who has had aortic valve replacement. Comparison made with the previous study dated 01/08/2025. TECHNIQUE: Portable view of the chest. FINDINGS: Left thoracostomy tube in situ. The tip of the [place] catheter is in the right pulmonary artery. Cardiomegaly with aortic atherosclerosis. No failure. Subsegmental atelectasis seen in the left midlung zone with remainder of the lungs being clear. Procedure Note Summer Nayak MD - 01/09/2025 EXAMINATION: XR CHEST 1 VIEW HISTORY: The patient is a 59-year-old male who has had aortic valve replacement. Comparison made with the previous study dated 01/08/2025. TECHNIQUE: Portable view of the chest. FINDINGS: Left thoracostomy tube in situ. The tip of the [place] catheter is in the right pulmonary artery. Cardiomegaly with aortic atherosclerosis. No failure. Subsegmental atelectasis seen in the left midlung zone with remainder of the lungs being clear. IMPRESSION: No failure. Electronically signed by: Summer Nayak M.D. us Esteban Fairchild MD IMG XR PROCEDURES Final Resu lt * POCT glucose (01/09/2025 5:58 AM CDT) Glucose, POC 127 70 - 199 mg/dL Blood 01/09/2025 5:58 AM CDT 01/09/2025 5:58 AM CDT us Esteban Fairchild MD LAB POCT ORDERABLES - DEVICE Final Result [place] [address] [place] [address] * POCT glucose (01/09/2025 4:41 AM CDT) Glucose, POC 118 70 - 199 mg/dL Blood 01/09/2025 4:41 AM CDT 01/09/2025 4:41 AM CDT Esteban Fairchild MD LAB POCT ORDERABLES - DEVICE Final Result Performing Organization Address [facility] Co de Phone Number [place] [address] [facility] [place] [address] * (ABNORMAL) Blood gas, pulmonary artery (01/09/2025 3:42 AM CDT) pH, PA 7.35 Comment: Interpretive Data No reference range established. Current interpretive data was last revised 2019. pCO2, PA 47 mmHg LEX Comment: Interpretive Data No reference range established. Current interpretive data was last revised 2019. pO2, PA 40(C) mmHg LEX Comment: Critical called to and readback by Sushma Gtz RN at 01/09/2025 04:03:23 CDT by joe Yeung. Interpretive Data No reference range established. Current interpretive data was last revised 2019. HCO3, PA (Calculated) 24 mmol/L LEX Comment: Interpretive Data No reference range established. Current interpretive data was last revised 2019. Base excess PA 1 mmol/L LEX Comment: Interpretive Data No reference range established. Current interpretive data was last revised 2019. O2 Sat, PA (Measured) 66 % LEX Comment: Interpretive Data No reference range established. Current interpretive data was last revised 2019. Blood 01/09/2025 3:42 AM CDT 01/09/2025 3:47 AM CDT Esteban Fairchild MD LAB BLOOD ORDERABLES Final R esult Performing Organization Address City/[facility]/ZIP Co de Phone Number [place] [address] [address] [facility] [place] [address] * eGFR (01/09/2025 3:42 AM CDT) eGFR 67 >=60 mL/min/1. 73 m2 Comment: Interpretive Data [...] interpretive data was last reviewed 2021. Blood 01/09/2025 3:42 AM CDT 01/09/2025 3:58 AM CDT us Esteban Fairchild MD LAB BLOOD ORDERABLES Final R esult [place] [place] [address] * (ABNORMAL) CBC without differential (01/09/2025 3:42 AM CDT) Pathologist [facility] WBC 13.86(H) 3.80 - 9.90 K/cumm Hgb 10.3(L) 13.0 - 17.5 g/dL [facility] Hct 31.7(L) 38.9 - 50.3 % [facility] Plt 129(L) 150 - 400 K/cumm [facility] MPV 9.4 9.1 - 12.3 fL [facility] RBC 3.64(L) 4.30 - 5.80 M/cumm [facility] MCV 87.1 81.3 - 96.4 fL [facility] MCH 28.3 27.1 - 33.3 pg [facility] CH MCHC 32.5 32.3 - 35.7 g/dL [facility] CH RDW CV 15.1(H) 11.1 - 14.9 % [facility] CH RDW SD 47.8 35.7 - 48.1 fL [facility] CH NRBC abs 0.00 0.00 - 0.01 K/cumm [facility] Blood 01/09/2025 3:42 AM CDT 01/09/2025 3:48 AM CDT Esteban Fairchild MD LAB BLOOD ORDERABLES Final R esult [place] [place] [address] * Magnesium (01/09/2025 3:42 AM CDT) Pathologist [facility] Magnesium 2.3 1.4 - 2.5 mg/dL Blood 01/09/2025 3:42 AM CDT 01/09/2025 3:47 AM CDT Esteban Fairchild MD LAB BLOOD ORDERABLES Final R [facility] Performing Organization Address City/[facility] Co de Phone Number [place] [employer] [place], [place] [id number] * (ABNORMAL) Basic metabolic panel (01/09/2025 3:42 AM CDT) Sodium 142 135 - 145 mmol/L Potassium, pl 3.6 3.3 - 4.9 mmol/L [facility] Chloride 105 97 - 110 mmol/L [facility] CH CO2 23 22 - 32 mmol/L [facility] CH Anion gap 14 2 - 15 mmol/L [facility] BUN 42(H) 6 - 25 mg/dL [facility] Creatinine 1.23 0.80 - 1.30 mg/dL [facility] Glucose 115 70 - 199 mg/dL [facility] Comment: Interpretive Data Fasting glucose >/= 126 mg/dl is diagnostic for diabetes. Fasting is defined as no caloric intake for at least 8 hours. Fasting glucose between 100 mg/dl to 125 mg/dl is diagnostic of prediabetes. In a patient with classic symptoms of hyperglycemia or hyperglycemic crisis, a random glucose >/= 200 mg/dl is diagnostic for diabetes. In the absence of unequivocal hyperglycemia, results should be confirmed by repeat testing. The classification and Diagnosis of Diabetes Diabetes Care 2021; 46: S19-S40. Current interpretive data was last revised 2022. Calcium 8.3(L) 8.5 - 10.3 mg/dL [facility] Blood 01/09/2025 3:42 AM CDT 01/09/2025 3:47 AM CDT Esteban Fairchild MD LAB BLOOD ORDERABLES Final R esult Performing Organization Address [facility] Co de Phone Number [facility] [address] [address] [facility] [place] [address] * POCT glucose (01/09/2025 3:39 AM CDT) Glucose, POC 109 70 - 199 mg/dL Blood 01/09/2025 3:39 AM CDT 01/09/2025 3:39 AM CDT Esteban Fairchild MD LAB POCT ORDERABLES - DEVICE Final Result Performing Organization Address [facility] Co de Phone Number [facility] [address] [place] [address] * POCT glucose (01/09/2025 2:41 AM CDT) Glucose, POC 125 70 - 199 mg/dL Blood 01/09/2025 2:41 AM CDT 01/09/2025 2:41 AM CDT Esteban Fairchild MD LAB POCT ORDERABLES - DEVICE Final Result Performing Organization Address [facility] Co de Phone Number [facility] [address] [place] [address] * POCT glucose (01/09/2025 1:50 AM CDT) Glucose, POC 106 70 - 199 mg/dL Blood 01/09/2025 1:50 AM CDT 01/09/2025 1:50 AM CDT Esteban Fairchild MD LAB POCT ORDERABLES - DEVICE Final Result Performing Organization Address [facility] de Phone Number L[place] [address] [facility] [place] [address] * POCT glucose (01/09/2025 12:46 AM CDT) Glucose, POC 96 70 - 199 mg/dL Blood 01/09/2025 12:4 6 AM CDT 01/09/2025 12:46 AM CDT Esteban Fairchild MD LAB POCT ORDERABLES - DEVICE Final Result Performing Organization Address [facility] de Phone Number L[place] [address] [address] [facility] [place] [address] * POCT glucose (01/08/2025 11:47 PM CDT) Glucose, POC 94 70 - 199 mg/dL Blood 01/08/2025 11:4 7 PM CDT 01/08/2025 11:47 PM CDT Esteban Fairchild MD LAB POCT ORDERABLES - DEVICE Final Result Performing Organization Address [facility] de Phone Number LEX [address] [address] [facility] [place] [address] * POCT glucose (01/08/2025 10:52 PM CDT) Glucose, POC 88 70 - 199 mg/dL Blood 01/08/2025 10:5 2 PM CDT 01/08/2025 10:52 PM CDT Esteban Fairchild MD LAB POCT ORDERABLES - DEVICE Final Result Performing Organization Address City/[facility]/ZIP Co de Phone Number L[place] [address] [address] [facility] [place] [address] * POCT glucose (01/08/2025 9:56 PM CDT) Glucose, POC 94 70 - 199 mg/dL Blood 01/08/2025 9:56 PM CDT 01/08/2025 9:56 PM CDT Esteban Fairchild MD LAB POCT ORDERABLES - DEVICE Final Result Performing Organization Address [facility] Co de Phone Number L[place] [address] [place] [address] * POCT glucose (01/08/2025 8:47 PM CDT) Glucose, POC 193 70 - 199 mg/dL Blood 01/08/2025 8:47 PM CDT 01/08/2025 8:47 PM CDT Esteban Fairchild MD LAB POCT ORDERABLES - DEVICE Final Result Performing Organization Address City/[facility] Co de Phone Number L[place] [address] [place] [address] * eGFR (01/08/2025 7:51 PM CDT) eGFR 64 >=60 mL/min/1. 73 m2 Comment: Interpretive Data [...] interpretive data was last reviewed 2021. Blood 01/08/2025 7:51 PM CDT 01/08/2025 8:10 PM CDT Hellen Gauthier DO LAB BLOOD ORDERABLES F inal Result Performing Organization Address City/[facility] Co de Phone Number [place] [address] [place] [address] * Type and screen (01/08/2025 7:51 PM CDT) Vahid, indirect Negative ABO Rh A Positive [facility] Blood 01/08/2025 7:51 PM CDT 01/08/2025 8:14 PM CDT Narrative [facility] - 01/08/2025 9:20 PM CDT Has the patient had Daratumumab or Isatuximab in the past 6 months?->Unknown Elma Patel TECHNICAL SUPPORT REPRESENTATIVE LAB BLOOD BANK TEST ORDERA BLES Final Result Performing Organization Address [facility] Co de Phone Number [place] [address] [place] [address] * (ABNORMAL) Basic metabolic panel (01/08/2025 7:51 PM CDT) Sodium 140 135 - 145 mmol/L Potassium, pl 3.5 3.3 - 4.9 mmol/L [facility] Chloride 105 97 - 110 mmol/L [facility] CH CO2 23 22 - 32 mmol/L [facility] CH Anion gap 12 2 - 15 mmol/L [facility] CH BUN 45(H) 6 - 25 mg/dL [facility] CH Creatinine 1.27 0.80 - 1.30 mg/dL [facility] CH Glucose 167 70 - 199 mg/dL LEX Comment: Interpretive Data Fasting glucose >/= 126 mg/dl is diagnostic for diabetes. Fasting is defined as no caloric intake for at least 8 hours. Fasting glucose between 100 mg/dl to 125 mg/dl is diagnostic of prediabetes. In a patient with classic symptoms of hyperglycemia or hyperglycemic crisis, a random glucose >/= 200 mg/dl is diagnostic for diabetes. In the absence of unequivocal hyperglycemia, results should be confirmed by repeat testing. The classification and Diagnosis of Diabetes Diabetes Care 2021; 46: S19-S40. Current interpretive data was last revised 2022. Calcium 8.8 8.5 - 10.3 mg/dL LEX Blood 01/08/2025 7:51 PM CDT 01/08/2025 8:10 PM CDT Hellen Gauthier DO LAB BLOOD ORDERABLES F inal Result Performing Organization Address [facility] Co de Phone Number L[place] [address] [place] [address] * POCT glucose (01/08/2025 7:44 PM CDT) Glucose, POC 145 70 - 199 mg/dL Blood 01/08/2025 7:44 PM CDT 01/08/2025 7:44 PM CDT Esteban Fairchild MD LAB POCT ORDERABLES - DEVICE Final Result Performing Organization Address [facility] Co de Phone Number L[place] [address] [place] [address] * (ABNORMAL) POCT glucose (01/08/2025 6:49 PM CDT) Glucose, POC 215(H) 70 - 199 mg/dL Blood 01/08/2025 6:49 PM CDT 01/08/2025 6:49 PM CDT Esteban Fairchild MD LAB POCT ORDERABLES - DEVICE Final Result Performing Organization Address [facility] Co de Phone Number [place] [address] [address] [facility] [place] [address] * (ABNORMAL) POCT glucose (01/08/2025 5:54 PM CDT) Glucose, POC 217(H) 70 - 199 mg/dL Blood 01/08/2025 5:54 PM CDT 01/08/2025 5:54 PM CDT Esteban Fairchild MD LAB POCT ORDERABLES - DEVICE Final Result Performing Organization Address [facility] de Phone Number L[place] [address] [address] [facility] [place] [address] * POCT glucose (01/08/2025 4:21 PM CDT) Glucose, POC 90 70 - 199 mg/dL Blood 01/08/2025 4:21 PM CDT 01/08/2025 4:21 PM CDT Esteban Fairchild MD LAB POCT ORDERABLES - DEVICE Final Result Performing Organization Address [facility] Co de Phone Number [place] [address] [place] [address] * POCT glucose (01/08/2025 3:56 PM CDT) Glucose, POC 92 70 - 199 mg/dL Blood 01/08/2025 3:56 PM CDT 01/08/2025 3:56 PM CDT Esteban Fairchild MD LAB POCT ORDERABLES - DEVICE Final Result Performing Organization Address [facility] Co de Phone Number L[place] [address] [place] [address] * Critical Care (01/08/2025 3:39 PM CDT) Narrative Hellen Gauthier DO - 01/08/2025 3:39 PM CDT Hellen Gauthier DO 01/08/2025 3:46 PM Critical Care Performed by: Hellen Gauthier DO Authorized by: Hellen Gauthier DO CRITICAL CARE: Team: YANE Shift: AM Level of Billing: Critical Care My time spent with this patient was 30 minutes: Critical Provider Statement: I have seen and examined the patient on this day of service. I have reviewed and confirmed the history, physical exam, laboratory and radiologic data as documented in the signed ICU note. I have reviewed and discussed my treatment plan with the ICU team and other medical/communications consultant staff, making frequent assessments and decisions regarding this patient's complex medical care. Critical Care time was exclusive of time spent performing separately billed procedures, treating other patients, and teaching. This time was in addition to and separate from critical care provided by other practitioners in my group on this day of service. Critical Care was necessary to treat or prevent imminent or life-threatening deterioration of the following conditions: I spent time reviewing and interpreting data from bedside monitors, laboratory results, and imaging, I spent time discussing the management of this critically ill patient with consultants and the medical staff and I spent time documenting in the medical record us Hellen Gauthier DO IN CLINIC/BEDSIDE CHIOMA PATEL Final Result * POCT glucose (01/08/2025 2:49 PM CDT) Glucose, POC 135 70 - 199 mg/dL Blood 01/08/2025 2:49 PM CDT 01/08/2025 2:49 PM CDT us Esteban Fairchild MD LAB POCT ORDERABLES - DEVICE Final Result [address] [address] [place] [address] * eGFR (01/08/2025 2:37 PM CDT) eGFR 70 >=60 mL/min/1. 73 m2 Comment: Interpretive Data [...] interpretive data was last reviewed 2021. Blood 01/08/2025 2:37 PM CDT 01/08/2025 2:51 PM CDT [facility] LAB BLOOD ORDERABLES F inal Result Performing Organization Address [facility]/ZIP Co de Phone Number L[place] [address] [place] [address] * (ABNORMAL) Magnesium (01/08/2025 2:37 PM CDT) Magnesium 2.6(H) 1.4 - 2.5 mg/dL Blood 01/08/2025 2:37 PM CDT 01/08/2025 2:51 PM CDT Hellen Gauthier LAB BLOOD ORDERABLES F inal Result L[place] [address] [place] [address] * (ABNORMAL) Basic metabolic panel (01/08/2025 2:37 PM CDT) Sodium 141 135 - 145 mmol/L Potassium, pl 3.5 3.3 - 4.9 mmol/L [facility] Chloride 106 97 - 110 mmol/L [facility] CO2 21(L) 22 - 32 mmol/L [facility] Anion gap 14 2 - 15 mmol/L [facility] BUN 39(H) 6 - 25 mg/dL [facility] Creatinine 1.18 0.80 - 1.30 mg/dL [facility] Glucose 142 70 - 199 mg/dL [facility] Comment: Interpretive Data Fasting glucose >/= 126 mg/dl is diagnostic for diabetes. Fasting is defined as no caloric intake for at least 8 hours. Fasting glucose between 100 mg/dl to 125 mg/dl is diagnostic of prediabetes. In a patient with classic symptoms of hyperglycemia or hyperglycemic crisis, a random glucose >/= 200 mg/dl is diagnostic for diabetes. In the absence of unequivocal hyperglycemia, results should be confirmed by repeat testing. The classification and Diagnosis of Diabetes Diabetes Care 2021; 46: S19-S40. Current interpretive data was last revised 2022. Calcium 8.8 8.5 - 10.3 mg/dL [facility] Blood 01/08/2025 2:37 PM CDT 01/08/2025 2:51 PM CDT Hellen Gauthier DO LAB BLOOD ORDERABLES F inal Result Performing Organization Address [facility] Co de Phone Number [facility] [address] [place] [address] * POCT glucose (01/08/2025 1:48 PM CDT) Glucose, POC 174 70 - 199 mg/dL Blood 01/08/2025 1:48 PM CDT 01/08/2025 1:48 PM CDT Esteban Fairchild MD LAB POCT ORDERABLES - DEVICE Final Result Performing Organization Address [facility] Co de Phone Number [facility] [address] [address] [place] [address] * POCT glucose (01/08/2025 12:51 PM CDT) Glucose, POC 192 70 - 199 mg/dL Blood 01/08/2025 12:5 1 PM CDT 01/08/2025 12:51 PM CDT us Esteban Fairchild MD LAB POCT ORDERABLES - DEVICE Final Result Performing Organization Address [facility] de Phone Number LEX [address] [address] [facility] [place] [address] * POCT glucose (01/08/2025 11:48 AM CDT) Glucose, POC 141 70 - 199 mg/dL Blood 01/08/2025 11:4 8 AM CDT 01/08/2025 11:48 AM CDT us Esteban Fairchild MD LAB POCT ORDERABLES - DEVICE Final Result Performing Organization Address [facility] de Phone Number SÁNCHEZTIA [address] [address] [facility] [place] [address] * POCT glucose (01/08/2025 10:50 AM CDT) Glucose, POC 157 70 - 199 mg/dL Blood 01/08/2025 10:5 0 AM CDT 01/08/2025 10:50 AM CDT us Esteban Fairchild MD LAB POCT ORDERABLES - DEVICE Final Result Performing Organization Address [facility] de Phone Number L[place] [address] [address] [facility] [place] [address] * POCT glucose (01/08/2025 9:40 AM CDT) Glucose, POC 157 70 - 199 mg/dL Blood 01/08/2025 9:40 AM CDT 01/08/2025 9:40 AM CDT us Esteban Fairchild MD LAB [place]CT [place] - [place] [address] [facility] [place] [address] * XR Chest 1 Vw Portable (01/08/2025 8:37 AM CDT) Anatomical Region Laterality Modality Body, Chest N/A Computed Radiogr aphy 01/08/2025 9:01 AM CDT Impressions 01/08/2025 9:01 AM CDT Very mild vascular congestion. Electronically signed by: Summer Nayak M.D. Narrative 01/08/2025 9:01 AM CDT EXAMINATION: XR CHEST 1 VIEW HISTORY: The patient is a 59-year-old male who has had aortic valve replacement. Comparison made with the film done earlier in the day. TECHNIQUE: Portable view of the chest. FINDINGS: Left thoracostomy tube in situ. The tip of the [place] catheter is in the main pulmonary artery. Cardiomegaly with aortic atherosclerosis. Mild degree of vascular congestion. No focal infiltrate. Procedure Note Summer Nayak MD - 01/08/2025 EXAMINATION: XR CHEST 1 VIEW HISTORY: The patient is a 59-year-old male who has had aortic valve replacement. Comparison made with the film done earlier in the day. TECHNIQUE: Portable view of the chest. FINDINGS: Left thoracostomy tube in situ. The tip of the [place] catheter is in the main pulmonary artery. Cardiomegaly with aortic atherosclerosis. Mild degree of vascular congestion. No focal infiltrate. IMPRESSION: Very mild vascular congestion. Electronically signed by: Summer Nayak M.D. us Abelino Wilkinson MD IMG XR PROCEDURES Final Result * POCT glucose (01/08/2025 8:30 AM CDT) Glucose, POC 135 70 - 199 mg/dL Blood 01/08/2025 8:30 AM CDT 01/08/2025 8:30 AM CDT us Esteban Fairchild MD LAB POCT ORDERABLES - DEVICE Final Result Performing Organization Address City/State/[facility] [place] [address] [address] [place] [address] * POCT glucose (01/08/2025 5:51 AM CDT) Glucose, POC 125 70 - 199 mg/dL Blood 01/08/2025 5:51 AM CDT 01/08/2025 5:51 AM CDT us Esteban Fairchild MD LAB POCT ORDERABLES - DEVICE Final Result Performing Organization Address [facility] de Phone Number [place] [address] [address] [place] [address] * XR Chest 1 View - in AM (01/08/2025 4:40 AM CDT) Anatomical Region Laterality Modality Body, Chest N/A Computed Radiogr aphy 01/08/2025 8:53 AM CDT Impressions 01/08/2025 8:53 AM CDT Findings as described above. Electronically signed by: Summer Nayak M.D. Narrative 01/08/2025 8:53 AM CDT EXAMINATION: XR CHEST 1 VIEW HISTORY: The patient is a 59-year-old male who has had aortic valve replacement. Comparison is made with the previous study dated 01/07/2025. TECHNIQUE: AP portable view of the chest. FINDINGS: Borderline cardiomegaly with aortic atherosclerosis. Slight haziness of the vascular markings. No focal infiltrate. Left thoracostomy tube in situ. The endotracheal and nasogastric tubes have been removed. The tip of the [place] catheter is in the main pulmonary artery. Procedure Note Summer Nayak MD - 01/08/2025 EXAMINATION: XR CHEST 1 VIEW HISTORY: The patient is a 59-year-old male who has had aortic valve replacement. Comparison is made with the previous study dated 01/07/2025. TECHNIQUE: AP portable view of the chest. FINDINGS: Borderline cardiomegaly with aortic atherosclerosis. Slight haziness of the vascular markings. No focal infiltrate. Left thoracostomy tube in situ. The endotracheal and nasogastric tubes have been removed. The tip of the [place] catheter is in the main pulmonary artery. IMPRESSION: Findings as described above. Electronically signed by: Summer Nayak M.D. Result [facility] Esteban Fairchild MD IMG XR PROCEDURES Final Resu lt * POCT glucose (01/08/2025 3:45 AM CDT) Glucose, POC 130 70 - 199 mg/dL Blood 01/08/2025 3:45 AM CDT 01/08/2025 3:45 AM CDT Result [facility] Esteban Fairchild MD LAB POCT ORDERABLES - DEVICE Final Result Performing Organization Address [facility] de Phone Number L[place] [address] [place] [place], [place] [id number] * Oxyhemoglobin, pulmonary artery (01/08/2025 2:21 AM CDT) Oxyhemoglobin, PA 72.5 % Comment: Interpretive Data No reference range established. Current interpretive data was last revised 2019. Blood 01/08/2025 2:21 AM CDT 01/08/2025 2:59 AM CDT Result [facility] Esteban Fairchild MD LAB BLOOD ORDERABLES Final R esult Performing Organization Address [facility] Co de Phone Number L[place] [address] [address] [place] [address] * (ABNORMAL) Blood gas, pulmonary artery (01/08/2025 2:21 AM CDT) pH, PA 7.36 Comment: Interpretive Data No reference range established. Current interpretive data was last revised 2019. pCO2, PA 47 mmHg LEX [place] Comment: Interpretive Data No reference range established. Current interpretive data was last revised 2019. pO2, PA 42(C) mmHg LEX Comment: Critical result called to Sushma Alonzo in CVU with read back. 01/08/2025 03:25:10 CDT by Lydia Villatoro Interpretive Data No reference range established. Current interpretive data was last revised 2019. HCO3, PA (Calculated) 25 mmol/L LEX Comment: Interpretive Data No reference range established. Current interpretive data was last revised 2019. Base excess PA 1 mmol/L LEX Comment: Interpretive Data No reference range established. Current interpretive data was last revised 2019. O2 Sat, PA (Measured) 74 % LEX Comment: Interpretive Data No reference range established. Current interpretive data was last revised 2019. O2 Sat, PA (Calculated) See Comment LEX Comment: calculated result not available. Interpretive Data No reference range established. Current interpretive data was last revised 2019. Blood 01/08/2025 2:21 AM CDT 01/08/2025 2:59 AM CDT Esteban Fairchild MD LAB BLOOD ORDERABLES Edited Result - Final Performing Organization Address City/[facility]/ZIP Co de Phone Number SÁNC[place]ZTIA [place] [address] [place] [address] * Calcium, ionized, whole blood (01/08/2025 2:21 AM CDT) Pathologist [facility] Ca, ionized, bld 4.92 4.50 - 5.10 mg/dL Blood 01/08/2025 2:21 AM CDT 01/08/2025 2:58 AM CDT Esteban Fairchild MD LAB BLOOD ORDERABLES Final R esult [place] [address] [place] [address] * eGFR (01/08/2025 2:21 AM CDT) eGFR 73 >=60 mL/min/1. 73 m2 Comment: Interpretive Data [...] interpretive data was last reviewed 2021. Blood 01/08/2025 2:21 AM CDT 01/08/2025 2:58 AM CDT us Esteban Fairchild MD LAB BLOOD ORDERABLES Final R esult [facility] [address] [address] [place] [address] * (ABNORMAL) CBC without differential (01/08/2025 2:21 AM CDT) WBC 11.68(H) 3.80 - 9.90 K/cumm Hgb 10.6(L) 13.0 - 17.5 g/dL [facility] Hct 31.9(L) 38.9 - 50.3 % [facility] Plt 144(L) 150 - 400 K/cumm [facility] MPV 9.9 9.1 - 12.3 fL [facility] RBC 3.75(L) 4.30 - 5.80 M/cumm [facility] MCV 85.1 81.3 - 96.4 fL [facility] MCH 28.3 27.1 - 33.3 pg [facility] MCHC 33.2 32.3 - 35.7 g/dL [facility] RDW CV 14.4 11.1 - 14.9 % [facility] RDW SD 44.9 35.7 - 48.1 fL [facility] NRBC abs 0.00 0.00 - 0.01 K/cumm [facility] Blood 01/08/2025 2:21 AM CDT 01/08/2025 2:59 AM CDT Esteban Fairchild MD LAB BLOOD ORDERABLES Final R esult Performing Organization Address City/[facility]/ZIP Co de Phone Number [place] [address] [address] [place] [address] * Magnesium (01/08/2025 2:21 AM CDT) Pathologist [facility] Magnesium 2.5 1.4 - 2.5 mg/dL Blood 01/08/2025 2:21 AM CDT 01/08/2025 2:58 AM CDT Esteban Fairchild MD LAB BLOOD ORDERABLES Final R [facility] Performing Organization Address City/[facility] Co de Phone Number L[place] [address] [place] [address] * (ABNORMAL) Basic metabolic panel (01/08/2025 2:21 AM CDT) Sodium 143 135 - 145 mmol/L Potassium, pl 3.8 3.3 - 4.9 mmol/L [facility] Chloride 109 97 - 110 mmol/L [facility] CO2 23 22 - 32 mmol/L [facility] Anion gap 11 2 - 15 mmol/L [facility] BUN 36(H) 6 - 25 mg/dL [facility] Creatinine 1.14 0.80 - 1.30 mg/dL [facility] Glucose 145 70 - 199 mg/dL [facility] Comment: Interpretive Data Fasting glucose >/= 126 mg/dl is diagnostic for diabetes. Fasting is defined as no caloric intake for at least 8 hours. Fasting glucose between 100 mg/dl to 125 mg/dl is diagnostic of prediabetes. In a patient with classic symptoms of hyperglycemia or hyperglycemic crisis, a random glucose >/= 200 mg/dl is diagnostic for diabetes. In the absence of unequivocal hyperglycemia, results should be confirmed by repeat testing. The classification and Diagnosis of Diabetes Diabetes Care 2021; 46: S19-S40. Current interpretive data was last revised 2022. Calcium 8.4(L) 8.5 - 10.3 mg/dL [facility] Blood 01/08/2025 2:21 AM CDT 01/08/2025 2:58 AM CDT Esteban Fairchild MD LAB BLOOD ORDERABLES Final R esult Performing Organization Address City/[facility]/ZIP Co de Phone Number SÁNCHEZTIA [place] [address] [address] [place] [address] * POCT glucose (01/08/2025 1:38 AM CDT) Glucose, POC 125 70 - 199 mg/dL Blood 01/08/2025 1:38 AM CDT 01/08/2025 1:38 AM CDT Esteban Fairchild MD LAB POCT ORDERABLES - DEVICE Final Result Performing Organization Address [facility] Co de Phone Number L[place] [address] [address] [facility] [place] [address] * POCT glucose (01/08/2025 12:35 AM CDT) Glucose, POC 135 70 - 199 mg/dL Blood 01/08/2025 12:3 5 AM CDT 01/08/2025 12:35 AM CDT Esteban Fairchild MD LAB POCT ORDERABLES - DEVICE Final Result Performing Organization Address [facility] Co de Phone Number L[place] [address] [address] [facility] [place] [address] * POCT glucose (01/07/2025 11:16 PM CDT) Glucose, POC 129 70 - 199 mg/dL Blood 01/07/2025 11:1 6 PM CDT 01/07/2025 11:16 PM CDT Esteban Fairchild MD LAB POCT ORDERABLES - DEVICE Final Result Performing Organization Address [facility] de Phone Number LEX [place] [address] [address] [facility] [employer] [place], [place] [address] * POCT glucose (01/07/2025 10:03 PM CDT) Glucose, POC 138 70 - 199 mg/dL Blood 01/07/2025 10:0 3 PM CDT 01/07/2025 10:03 PM CDT Esteban Fairchild MD LAB POCT ORDERABLES - DEVICE Final Result Performing Organization Address [facility] Phone Number LEX PILY [address] [address] [facility] [place] [address] * (ABNORMAL) Blood gas, arterial (01/07/2025 9:19 PM CDT) pH, Art 7.39 7.35 - 7.45 PCO2, Arterial 41 35 - 45 mmHg [facility] PO2, Arterial 108 83 - 108 mmHg [facility] HCO3 Art (Calculated) 24 20 - 30 mmol/L [facility] BE, art 0 mmol/L [facility] Comment: Interpretive Data No Reference Range Established Current Interpretive Data was last revised on 2017 O2 Sat Art (Measured) 98(H) 90 - 95 % [facility] Blood 01/07/2025 9:19 PM CDT 01/07/2025 9:27 PM CDT Esteban Fairchild MD LAB BLOOD ORDERABLES Final R esult Performing Organization Address [facility] de Phone Number L[place] [address] [address] [facility] [place] [address] * POCT glucose (01/07/2025 9:09 PM CDT) Glucose, POC 125 70 - 199 mg/dL Blood 01/07/2025 9:09 PM CDT 01/07/2025 9:09 PM CDT Esteban Fairchild MD LAB POCT ORDERABLES - DEVICE Final Result Performing Organization Address City/[facility]/ZIP Co de Phone Number L[place] [address] [address] [place] [address] * POCT glucose (01/07/2025 7:58 PM CDT) Glucose, POC 111 70 - 199 mg/dL Blood 01/07/2025 7:58 PM CDT 01/07/2025 7:58 PM CDT Esteban Fairchild MD LAB POCT ORDERABLES - DEVICE Final Result Performing Organization Address [facility] Co de Phone Number L[place] [address] [place] [address] * eGFR (01/07/2025 7:54 PM CDT) eGFR 72 >=60 mL/min/1. 73 m2 Comment: Interpretive Data [...] interpretive data was last reviewed 2021. Blood 01/07/2025 7:54 PM CDT 01/07/2025 8:06 PM CDT Esteban Fairchild MD LAB BLOOD ORDERABLES Final R esult [place] [address] [place] [address] * (ABNORMAL) CBC without differential (01/07/2025 7:54 PM CDT) WBC 12.44(H) 3.80 - 9.90 K/cumm Hgb 10.7(L) 13.0 - 17.5 g/dL [facility] Hct 32.1(L) 38.9 - 50.3 % [facility] Plt 131(L) 150 - 400 K/cumm [facility] MPV 9.5 9.1 - 12.3 fL [facility] RBC 3.81(L) 4.30 - 5.80 M/cumm [facility] MCV 84.3 81.3 - 96.4 fL [facility] MCH 28.1 27.1 - 33.3 pg [facility] MCHC 33.3 32.3 - 35.7 g/dL [facility] RDW CV 14.2 11.1 - 14.9 % [facility] RDW SD 43.4 35.7 - 48.1 fL [facility] NRBC abs 0.00 0.00 - 0.01 K/cumm [facility] Blood 01/07/2025 7:54 PM CDT 01/07/2025 8:07 PM CDT Esteban Fairchild MD LAB BLOOD ORDERABLES Final R esult [address] [place] [address] * (ABNORMAL) Basic metabolic panel (01/07/2025 7:54 PM CDT) Sodium 144 135 - 145 mmol/L Potassium, pl 3.5 3.3 - 4.9 mmol/L [facility] Chloride 108 97 - 110 mmol/L [facility] CO2 23 22 - 32 mmol/L [facility] Anion gap 13 2 - 15 mmol/L [facility] BUN 40(H) 6 - 25 mg/dL [facility] Creatinine 1.15 0.80 - 1.30 mg/dL [facility] Glucose 111 70 - 199 mg/dL [facility] Comment: Interpretive Data Fasting glucose >/= 126 mg/dl is diagnostic for diabetes. Fasting is defined as no caloric intake for at least 8 hours. Fasting glucose between 100 mg/dl to 125 mg/dl is diagnostic of prediabetes. In a patient with classic symptoms of hyperglycemia or hyperglycemic crisis, a random glucose >/= 200 mg/dl is diagnostic for diabetes. In the absence of unequivocal hyperglycemia, results should be confirmed by repeat testing. The classification and Diagnosis of Diabetes Diabetes Care 2021; 46: S19-S40. Current interpretive data was last revised 2022. Calcium 8.5 8.5 - 10.3 mg/dL [facility] Blood 01/07/2025 7:54 PM CDT 01/07/2025 8:06 PM CDT us Esteban Fairchild MD LAB BLOOD ORDERABLES Final R esult [facility] [address] [facility] [place] [address] * Critical Care (01/07/2025 7:05 PM CDT) Narrative Jono Bourgeois MD - 01/07/2025 7:05 PM CDT Jono Bourgeois MD 01/08/2025 6:14 AM Critical Care Performed by: Abelino Rizo NP Authorized by: Abelino Rizo NP CRITICAL CARE: Team: YANE Shift: PM Level of Billing: Critical Care My time spent with this patient was 90 minutes: Critical Provider Statement: I have seen and examined the patient on this day of service. I have reviewed and confirmed the history, physical exam, laboratory and radiologic data as documented in the signed ICU note. I have reviewed and discussed my treatment plan with the ICU team and other medical/communications consultant staff, making frequent assessments and decisions regarding this patient's complex medical care. Critical Care time was exclusive of time spent performing separately billed procedures, treating other patients, and teaching. This time was in addition to and separate from critical care provided by other practitioners in my group on this day of service. Critical Care was necessary to treat or prevent imminent or life-threatening deterioration of the following conditions: I spent time reviewing and interpreting data from bedside monitors, laboratory results, and imaging, I spent time discussing the management of this critically ill patient with consultants and the medical staff and I spent time documenting in the medical record us Abelino Rizo NP IN CLINIC/BEDSIDE ORDER VAISHNAVI Final Result * POCT glucose (01/07/2025 6:57 PM CDT) Glucose, POC 91 70 - 199 mg/dL Blood 01/07/2025 6:57 PM CDT 01/07/2025 6:57 PM CDT us Esteban Fairchild MD LAB POCT ORDERABLES - DEVICE Final Result Performing Organization Address [facility] Co de Phone Number LEX PILY [address] [place] [address] * POCT glucose (01/07/2025 6:03 PM CDT) Glucose, POC 89 70 - 199 mg/dL Blood 01/07/2025 6:03 PM CDT 01/07/2025 6:03 PM CDT Esteban Fairchild MD LAB POCT ORDERABLES [place] [address] [address] [place] [address] * Critical Care (01/07/2025 5:24 PM CDT) Narrative Hellen Gauthier DO - 01/07/2025 5:24 PM CDT Hellen Gauthier DO 01/07/2025 5:25 PM Critical Care Performed by: Hellen Gauthier DO Authorized by: Hellen Gauthier DO CRITICAL CARE: Team: YANE Shift: AM Level of Billing: Critical Care My time spent with this patient was 45 minutes: Critical Provider Statement: I have seen and examined the patient on this day of service. I have reviewed and confirmed the history, physical exam, laboratory and radiologic data as documented in the signed ICU note. I have reviewed and discussed my treatment plan with the ICU team and other medical/communications consultant staff, making frequent assessments and decisions regarding this patient's complex medical care. Critical Care time was exclusive of time spent performing separately billed procedures, treating other patients, and teaching. This time was in addition to and separate from critical care provided by other practitioners in my group on this day of service. Critical Care was necessary to treat or prevent imminent or life-threatening deterioration of the following conditions: Acute pain/acute postoperative pain and Agitation requiring sedation Undifferentiated shock Acute respiratory insufficiency Acute electrolyte derangement and Hypo- or Hyperglycemia Acute blood loss anemia This time was spent by me doing the following: Serial bedside patient exams and Serial laboratory checks Active titration of continuous sedation and Acute pain control Initiation/active titration of inotropic medications and Initiation/active titration of vasoactive medications Invasive ventilator management, reassessment, and titration Active repletion of electrolytes I spent time reviewing and interpreting data from bedside monitors, laboratory results, and imaging, I spent time discussing the management of this critically ill patient with consultants and the medical staff and I spent time documenting in the medical record us Hellen Gauthier DO IN CLINIC/BEDSIDE CHIOMA PATEL Final Result * POCT glucose (01/07/2025 5:15 PM CDT) Glucose, POC 105 70 - 199 mg/dL Blood 01/07/2025 5:15 PM CDT 01/07/2025 5:15 PM CDT us Esteban Fairchild MD LAB POCT ORDERABLES - DEVICE Final Result Performing Organization Address City/State/ZIP Co az Phone Number [facility] [address] [address] [place] [address] * (ABNORMAL) Blood gas, arterial (01/07/2025 5:14 PM CDT) pH, Art 7.39 7.35 - 7.45 PCO2, Arterial 43 35 - 45 mmHg [facility] PO2, Arterial 144(H) 83 - 108 mmHg [facility] HCO3 Art (Calculated) 25 20 - 30 mmol/L [facility] BE, art 1 mmol/L [facility] Comment: Interpretive Data No Reference Range Established Current Interpretive Data was last revised on 2017 O2 Sat Art (Measured) 99(H) 90 - 95 % [facility] Blood 01/07/2025 5:14 PM CDT 01/07/2025 5:29 PM CDT Esteban Fairchild MD LAB BLOOD ORDERABLES Final R esult Performing Organization Address [facility] Co de Phone Number [place] [address] [address] [place] [address] * POCT glucose (01/07/2025 4:59 PM CDT) Glucose, POC 120 70 - 199 mg/dL Blood 01/07/2025 4:5 9 PM CDT 01/07/2025 4:59 PM CDT Esteban Fairchild MD LAB POCT ORDERABLES - DEVICE Final Result Performing Organization Address [facility] de Phone Number LEX [address] [address] Department [place] [address] * XR Chest 1 View (01/07/2025 4:38 PM CDT) Anatomical Region Laterality Modality Body, Chest N/A Computed Radiogr aphy 01/07/2025 4:40 PM CDT Impressions 01/07/2025 4:40 PM CDT No failure. Electronically signed by: Summer Nayak M.D. Narrative 01/07/2025 4:40 PM CDT EXAMINATION: XR CHEST 1 VIEW HISTORY: The patient is a 59-year-old male who has had aortic valve replacement. Comparison made with the previous study dated 12/27/2024. TECHNIQUE: AP portable view of the chest. FINDINGS: Cardiomegaly with aortic atherosclerosis. No failure. No active infiltrate. The tip of the [place] catheter is in the main pulmonary artery. Endotracheal tube tip in good position. The tip of the nasogastric tube is in the fundus of the stomach. Procedure Note Summer Nayak MD - 01/07/2025 EXAMINATION: XR CHEST 1 VIEW HISTORY: The patient is a 59-year-old male who has had aortic valve replacement. Comparison made with the previous study dated 12/27/2024. TECHNIQUE: AP portable view of the chest. FINDINGS: Cardiomegaly with aortic atherosclerosis. No failure. No active infiltrate. The tip of the [place] catheter is in the main pulmonary artery. Endotracheal tube tip in good position. The tip of the nasogastric tube is in the fundus of the stomach. IMPRESSION: No failure. Electronically signed by: Summer Nayak M.D. Esteban Fairchild MD IMG XR PROCEDURES Final Resu lt * Calcium, ionized, whole blood (01/07/2025 4:12 PM CDT) Ca, ionized, bld 4.76 4.50 - 5.10 mg/dL Blood 01/07/2025 4:12 PM CDT 01/07/2025 4:21 PM CDT us Esteban Fairchild MD LAB BLOOD ORDERABLES Final R esult [address] [address] [address] [place] [address] * eGFR (01/07/2025 4:12 PM CDT) eGFR 72 >=60 mL/min/1. 73 m2 Comment: Interpretive Data [...] interpretive data was last reviewed 2021. Blood 01/07/2025 4:12 PM CDT 01/07/2025 4:21 PM CDT Esteban Fairchild MD LAB BLOOD ORDERABLES Final R esult Performing Organization Address [facility] Co de Phone Number L[place] [address] [address] [place] [address] * aPTT (01/07/2025 4:12 PM CDT) Pathologist [facility] aPTT 34 26 - 38 sec Comment: Interpretive Data Heparin therapeutic range: 66.0 - 100.0 seconds. Range based on correlation with therapeutic heparin activity range of 0.3 - 0.7 Units/mL. Current interpretive data was last revised on 2022. Blood 01/07/2025 4:12 PM CDT 01/07/2025 4:23 PM CDT Esteban Fairchild MD LAB BLOOD ORDERABLES Final R esult Performing Organization Address [facility] [place] [address] [address] Department of [employer] [place], [place] [id number] * (ABNORMAL) Protime-INR (01/07/2025 4:12 PM CDT) PT 13.8(H) 10.2 - 13.5 sec INR 1.23(H) 0.90 - 1.20 [facility] Comment: Interpretive data Oral anticoagulant therapeutic ranges: Venous thromboembolism prophylaxis or treatment: 2.0-3.0 CARDIOLOGY Standard range: 2.0-3.0 High-intensity range: 2.5-3.5 Refer to indication-specific guidelines for appropriate target ranges for prosthetic heart valve replacement. Current interpretive data was last revised on 2019. Blood 01/07/2025 4:12 PM CDT 01/07/2025 4:23 PM CDT us Esteban Fairchild MD LAB BLOOD ORDERABLES Final R esult [facility] [address] [address] [place] [address] * (ABNORMAL) CBC without differential (01/07/2025 4:12 PM CDT) Pathologist [facility] WBC 12.14(H) 3.80 - 9.90 K/cumm Hgb 10.6(L) 13.0 - 17.5 g/dL [facility] Hct 32.4(L) 38.9 - 50.3 % [facility] Plt 140(L) 150 - 400 K/cumm [facility] MPV 9.3 9.1 - 12.3 fL [facility] RBC 3.82(L) 4.30 - 5.80 M/cumm [facility] MCV 84.8 81.3 - 96.4 fL [facility] MCH 27.7 27.1 - 33.3 pg [facility] MCHC 32.7 32.3 - 35.7 g/dL [facility] RDW CV 14.2 11.1 - 14.9 % [facility] RDW SD 43.6 35.7 - 48.1 fL [facility] NRBC abs 0.00 0.00 - 0.01 K/cumm [facility] Blood 01/07/2025 4:12 PM CDT 01/07/2025 4:23 PM CDT Esteban Fairchild MD LAB BLOOD ORDERABLES Final R esult Performing Organization Address [facility] Co de Phone Number [place] [address] [address] [facility] [place] [address] * Phosphorus (01/07/2025 4:12 PM CDT) Phosphorus, pl 2.5 2.3 - 4.5 mg/dL Blood 01/07/2025 4:12 PM CDT 01/07/2025 4:21 PM CDT Esteban Fairchild MD LAB BLOOD ORDERABLES Final R esult Performing Organization Address [facility] Co de Phone Number [place] [address] [address] [facility] [place] [address] * (ABNORMAL) Magnesium (01/07/2025 4:12 PM CDT) Magnesium 2.6(H) 1.4 - 2.5 mg/dL Blood 01/07/2025 4:12 PM CDT 01/07/2025 4:21 PM CDT Esteban Fairchild MD LAB BLOOD ORDERABLES Final R esult Performing Organization Address [facility] Co de Phone Number [place] [address] [address] [facility] [place] [address] * (ABNORMAL) Blood gas, arterial (01/07/2025 4:12 PM CDT) pH, Art 7.40 7.35 - 7.45 PCO2, Arterial 42 35 - 45 mmHg [facility] PO2, Arterial 351(H) 83 - 108 mmHg [facility] HCO3 Art (Calculated) 25 20 - 30 mmol/L [facility] BE, art 1 mmol/L [facility] Comment: Interpretive Data No Reference Range Established Current Interpretive Data was last revised on 2017 O2 Sat Art (Measured) 100(H) 90 - 95 % [facility] Blood 01/07/2025 4:12 PM CDT 01/07/2025 4:21 PM CDT Esteban Fairchild MD LAB BLOOD ORDERABLES Final R esult [place] [address] [address] [place] [address] * (ABNORMAL) Basic metabolic panel (01/07/2025 4:12 PM CDT) Pathologist [facility] Sodium 142 135 - 145 mmol/L Potassium, pl 3.5 3.3 - 4.9 mmol/L [facility] Chloride 104 97 - 110 mmol/L [facility] CO2 23 22 - 32 mmol/L [facility] Anion gap 15 2 - 15 mmol/L [facility] BUN 44(H) 6 - 25 mg/dL [facility] Creatinine 1.15 0.80 - 1.30 mg/dL [facility] Glucose 140 70 - 199 mg/dL [facility] Comment: Interpretive Data Fasting glucose >/= 126 mg/dl is diagnostic for diabetes. Fasting is defined as no caloric intake for at least 8 hours. Fasting glucose between 100 mg/dl to 125 mg/dl is diagnostic of prediabetes. In a patient with classic symptoms of hyperglycemia or hyperglycemic crisis, a random glucose >/= 200 mg/dl is diagnostic for diabetes. In the absence of unequivocal hyperglycemia, results should be confirmed by repeat testing. The classification and Diagnosis of Diabetes Diabetes Care 2021; 46: S19-S40. Current interpretive data was last revised 2022. Calcium 8.5 8.5 - 10.3 mg/dL [facility] Blood 01/07/2025 4:12 PM CDT 01/07/2025 4:21 PM CDT us Esteban Fairchild MD LAB BLOOD ORDERABLES Final R esult [place] [address] [address] [place] [address] * POCT glucose (01/07/2025 3:53 PM CDT) Glucose, POC 151 70 - 199 mg/dL Blood 01/07/2025 3:53 PM CDT 01/07/2025 3:53 PM CDT Esteban Fairchild MD LAB POCT ORDERABLES - DEVICE Final Result [address] Department of Laboratories [place] [id number] * Surgical pathology (01/07/2025 3:49 PM CDT) Tissue (Heart Valve) 01/07/2025 12:07 PM CDT Narrative PATHOLOGY - 01/10/2025 2:22 PM CDT EPIC results best viewed via link to PDF [facility] Department of Pathology [address] [place] [id number] Note to Patients: This report may contain a detailed description of human tissue sent by a health care provider to the laboratory for pathologic evaluation. The content of this report is essential for diagnosis and may provide important critical findings. This information may be unfamiliar to patients to review without a medical professional present. It is advised that the patient review this report in the presence of a health care provider who can answer questions and explain the details. Final Report Patient Name: CARI LAM Address: [address] [place] [address] Gender: M : 1965 (Age: 59) Service: Cardiothoracic Location: [facility] Hospital #: [id number] Patient Type: [facility] Taken: 01/07/2025 Received: 01/07/2025 Accessioned: 01/07/2025 Reported: 01/10/2025 Physician(s):Dolores Abraham M.D. Diagnosis: Aortic valve, replacement: - Calcific atherosclerotic disease. Osorio Sahu M.D. Report Electronically Reviewed and Signed Out By Osorio Sahu M.D. 01/10/2025 14:22:45 Specimen(s) Received: A: Aortic valve leaflets Microscopic Description: Sections show benign valve tissue involved by significant calcific atherosclerotic disease. Clinical History: Aortic tenosis, etiology of cardiac valve disease unspecified Procdure: replacment aortic valve, CABG, corinary artery bypass graft Gross Description: The specimen is submitted in a single formalin filled container labeled BILL LUNDAK and aortic valve leaflets. 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 One valve is significantly larger than the other with a fusion of two leaflets. The valves measure 2.7 and 3.5 cm in greatest dimension. Both are thickened nodular and calcified. Decalcified and represented in one cassette. . All in one cassette. Lorena Lam R.N., P.A./Chris Perez MD PhD REPORT IMAGES AND SCANNED DOCUMENTS, IF INCLUDED, ONLY VIEWABLE IN PDF VERSION OF REPORT The performance characteristics of some immunohistochemical stains, fluorescence in-situ hybridization tests and immunophenotyping by flow cytometry cited in this report (if any) were determined by the Surgical Pathology Department at [facility] as part of an ongoing director quality assurance program and in compliance with federally mandated regulations drawn from the Clinical Laboratory Improvement Act of 1988 (CLIA '88). Some of these tests rely on the use of analyte specific reagents and are subject to specific labeling requirements by the US Food and Drug Administration. Such diagnostic tests may only be performed in a facility that is certified by the Department of Health and Human Services as a high complexity laboratory under CLIA '88. The FDA has determined that such clearance or approval is not necessary. This test is used for clinical purposes. It should not be regarded as investigational or for research. Nevertheless, federal rules concerning the medical use of analyte specific reagents require that the following disclaimer be attached to the report: This test was developed and its performance characteristics determined by the Surgical Pathology Department [facility]. It has not been cleared or approved by the U. S. Food and Drug Administration. Note for decalcified specimens: This assay has not been validated on decalcified tissues. Results should be interpreted with caution given the possibility of false negativity on decalcified specimens Esteban Fairchild MD LAB PATHOLOGY ORDERABLES Fin al Result PATHOLOGY [address] [place] [address] * (ABNORMAL) POC Blood Gas and Chemistries, Arterial - (01/07/2025 3:15 PM CDT) pH, Art POC 7.41 7.35 - 7.45 pCO2, Art POC 39 35 - 45 mmHg [facility] pO2, Art POC 335(H) 83 - 108 mmHg [facility] Na, POC 137 135 - 145 mmol/L [facility] K POC 3.6 3.3 - 4.9 mmol/L [facility] Comment: Interpretive Data This method is not able to assess for hemolysis, which may falsely increase potassium concentrations. If further testing is needed to evaluate this result, consider in-laboratory plasma potassium. Current Interpretive Data was last revised on 2021. Ionized Ca, POC 4.72 4.50 - 5.10 mg/dL [facility] Glucose, POC 172 70 - 199 mg/dL [facility] Lactate POC 1.9 0.7 - 2.0 mmol/L [facility] O2Hb, Art POC 97.5(H) 90.0 - 95.0 % [facility] SO2 (miguel) arterial 99(H) 90 - 95 % [facility] Total CO2, Art POC 26 21 - 30 mmol/L [facility] BE, art, POC 0 mmol/L [facility] Hct, POC 31.0(L) 38.9 - 50.3 % [facility] Total Hb, POC 10.4(L) 13.0 - 17.5 g/dL [facility] Blood 01/07/2025 3:15 PM CDT 01/07/2025 3:15 PM CDT us Esteban Fairchild MD LAB POCT ORDERABLES - DEVICE Final Result [address] [address] [address] Department [place] [address] * Transfuse plasma (01/07/2025 3:08 PM CDT) Blood us Porfirio Feliz MD BLOOD TRANSFUSION ORDERABLES Fin al Result [place] [address] [place] [address] * Transfuse platelets (01/07/2025 2:57 PM CDT) Blood Porfirio Feliz MD BLOOD TRANSFUSION ORDERABLES Fin al Result Performing Organization Address City/[facility]/ZIP Co de Phone Number [place] [address] [address] [place] [address] * (ABNORMAL) POC Blood Gas and Chemistries, Arterial - (01/07/2025 2:22 PM CDT) pH, Art POC 7.40 7.35 - 7.45 pCO2, Art POC 40 35 - 45 mmHg [facility] pO2, Art POC 296(H) 83 - 108 mmHg [facility] Na, POC 135 135 - 145 mmol/L [facility] K POC 4.0 3.3 - 4.9 mmol/L [facility] Comment: Interpretive Data This method is not able to assess for hemolysis, which may falsely increase potassium concentrations. If further testing is needed to evaluate this result, consider in-laboratory plasma potassium. Current Interpretive Data was last revised on 2021. Ionized Ca, POC 4.32(L) 4.50 - 5.10 mg/dL [facility] Glucose, POC 218(H) 70 - 199 mg/dL [facility] Lactate POC 1.3 0.7 - 2.0 mmol/L [facility] O2Hb, Art POC 97.6(H) 90.0 - 95.0 % [facility] SO2 (miguel) arterial 100(H) 90 - 95 % [facility] Total CO2, Art POC 26 21 - 30 mmol/L [facility] BE, art, POC 0 mmol/L [facility] Hct, POC 32.0(L) 38.9 - 50.3 % [facility] Total Hb, POC 10.6(L) 13.0 - 17.5 g/dL [facility] Blood 01/07/2025 2:22 PM CDT 01/07/2025 2:22 PM CDT Esteban Fairchild MD LAB POCT ORDERABLES - DEVICE Final Result [place] [address] [address] [facility] [place] [address] * POC Activated Clotting Time, High Range (01/07/2025 2:20 PM CDT) ACT 123 87 - 138 sec Blood 01/07/2025 2:20 PM CDT 01/07/2025 2:20 PM CDT Esteban Fairchild MD LAB BLOOD ORDERABLES Final R esult Performing Organization Address [facility] Co de Phone Number [place] [address] [place] [address] * (ABNORMAL) POC Blood Gas and Chemistries, Arterial - (01/07/2025 1:48 PM CDT) pH, Art POC 7.33(L) 7.35 - 7.45 pCO2, Art POC 40 35 - 45 mmHg [facility] pO2, Art POC 201(H) 83 - 108 mmHg [facility] Na, POC 134(L) 135 - 145 mmol/L [facility] K POC 5.4(H) 3.3 - 4.9 mmol/L [facility] Comment: Interpretive Data This method is not able to assess for hemolysis, which may falsely increase potassium concentrations. If further testing is needed to evaluate this result, consider in-laboratory plasma potassium. Current Interpretive Data was last revised on 2021. Ionized Ca, POC 4.34(L) 4.50 - 5.10 mg/dL [facility] Glucose, POC 238(H) 70 - 199 mg/dL [facility] Lactate POC 2.0 0.7 - 2.0 mmol/L [facility] O2Hb, Art POC 97.8(H) 90.0 - 95.0 % [facility] SO2 (miguel) arterial 100(H) 90 - 95 % [facility] Total CO2, Art POC 22 21 - 30 mmol/L [facility] BE, art, POC -4 mmol/L [facility] Hct, POC 30.0(L) 38.9 - 50.3 % [facility] Total Hb, POC 10.1(L) 13.0 - 17.5 g/dL [facility] Blood 01/07/2025 1:48 PM CDT 01/07/2025 1:48 PM CDT Esteban Fairchild MD LAB POCT ORDERABLES - DEVICE Final Result Performing Organization Address [facility] Co de Phone Number [place] [address] [address] Department [place] [address] * (ABNORMAL) POC Activated Clotting Time, High Range (01/07/2025 1:46 PM CDT) ACT 647(H) 87 - 138 sec Blood 01/07/2025 1:46 PM CDT 01/07/2025 1:46 PM CDT Esteban Fairchild MD LAB BLOOD ORDERABLES Final R esult Performing Organization Address [facility] de Phone Number [place] [address] [address] Department [place] [address] * (ABNORMAL) POC Blood Gas and Chemistries, Arterial - (01/07/2025 1:27 PM CDT) pH, Art POC 7.40 7.35 - 7.45 pCO2, Art POC 38 35 - 45 mmHg [facility] pO2, Art POC 180(H) 83 - 108 mmHg [facility] Na, POC 133(L) 135 - 145 mmol/L [facility] K POC 5.3(H) 3.3 - 4.9 mmol/L [facility] Comment: Interpretive Data This method is not able to assess for hemolysis, which may falsely increase potassium concentrations. If further testing is needed to evaluate this result, consider in-laboratory plasma potassium. Current Interpretive Data was last revised on 2021. Ionized Ca, POC 4.19(L) 4.50 - 5.10 mg/dL [facility] Glucose, POC 243(H) 70 - 199 mg/dL [facility] Lactate POC 1.2 0.7 - 2.0 mmol/L [facility] O2Hb, Art POC 97.8(H) 90.0 - 95.0 % [facility] SO2 (miguel) arterial 100(H) 90 - 95 % [facility] Total CO2, Art POC 25 21 - 30 mmol/L [facility] BE, art, POC -1 mmol/L [facility] Hct, POC 32.0(L) 38.9 - 50.3 % [facility] Total Hb, POC 10.7(L) 13.0 - 17.5 g/dL [facility] Blood 01/07/2025 1:27 PM CDT 01/07/2025 1:27 PM CDT Result [facility] Esteban Fairchild MD LAB POCT ORDERABLES - DEVICE Final Result Performing Organization Address City/[facility] Co de Phone Number [place] [address] [address] [employer] [place], [place] [id number] * (ABNORMAL) POC Activated Clotting Time, High Range (01/07/2025 1:25 PM CDT) ACT 629(H) 87 - 138 sec Blood 01/07/2025 1:25 PM CDT 01/07/2025 1:25 PM CDT Result [facility] Esteban Fairchild MD LAB BLOOD ORDERABLES Final R esult [place] [address] [address] [place] [address] * Platelet count (01/07/2025 1:21 PM CDT) Plt 205 150 - 400 K/cumm Blood 01/07/2025 1:21 PM CDT 01/07/2025 1:44 PM CDT Narrative [facility] - 01/07/2025 1:48 PM CDT Please call results to [phone]. Thanks. Esteban Fairchild MD LAB BLOOD ORDERABLES Final R esult [place] [address] [address] [place] [address] * (ABNORMAL) POC Blood Gas and Chemistries, Arterial - (01/07/2025 1:00 PM CDT) pH, Art POC 7.39 7.35 - 7.45 pCO2, Art POC 38 35 - 45 mmHg [facility] pO2, Art POC 232(H) 83 - 108 mmHg [facility] Na, POC 133(L) 135 - 145 mmol/L [facility] K POC 4.8 3.3 - 4.9 mmol/L [facility] Comment: Interpretive Data This method is not able to assess for hemolysis, which may falsely increase potassium concentrations. If further testing is needed to evaluate this result, consider in-laboratory plasma potassium. Current Interpretive Data was last revised on 2021. Ionized Ca, POC 4.24(L) 4.50 - 5.10 mg/dL [facility] Glucose, POC 246(H) 70 - 199 mg/dL [facility] Lactate POC 1.2 0.7 - 2.0 mmol/L [facility] O2Hb, Art POC 97.6(H) 90.0 - 95.0 % [facility] SO2 (miguel) arterial 99(H) 90 - 95 % [facility] Total CO2, Art POC 24 21 - 30 mmol/L [facility] BE, art, POC -2 mmol/L [facility] Hct, POC 32.0(L) 38.9 - 50.3 % [facility] Total Hb, POC 10.8(L) 13.0 - 17.5 g/dL [facility] Blood 01/07/2025 1:00 PM CDT 01/07/2025 1:00 PM CDT Esteban Fairchild MD LAB POCT ORDERABLES - DEVICE Final Result [place] [address] [address] [place] [address] * (ABNORMAL) POC Activated Clotting Time, High Range (01/07/2025 12:58 PM CDT) ACT 598(H) 87 - 138 sec Blood 01/07/2025 12:5 8 PM CDT 01/07/2025 12:58 PM CDT us Esteban Fairchild MD LAB BLOOD ORDERABLES Final R esult [address] [address] [address] [place] [address] * (ABNORMAL) POC Blood Gas and Chemistries, Arterial - (01/07/2025 12:35 PM CDT) pH, Art POC 7.37 7.35 - 7.45 pCO2, Art POC 39 35 - 45 mmHg [facility] pO2, Art POC 273(H) 83 - 108 mmHg [facility] Na, POC 133(L) 135 - 145 mmol/L [facility] K POC 4.8 3.3 - 4.9 mmol/L [facility] Comment: Interpretive Data This method is not able to assess for hemolysis, which may falsely increase potassium concentrations. If further testing is needed to evaluate this result, consider in-laboratory plasma potassium. Current Interpretive Data was last revised on 2021. Ionized Ca, POC 4.32(L) 4.50 - 5.10 mg/dL [facility] Glucose, POC 239(H) 70 - 199 mg/dL [facility] Lactate POC 1.1 0.7 - 2.0 mmol/L [facility] O2Hb, Art POC 97.8(H) 90.0 - 95.0 % [facility] SO2 (miguel) arterial 100(H) 90 - 95 % [facility] Total CO2, Art POC 24 21 - 30 mmol/L [facility] BE, art, POC -2 mmol/L [facility] Hct, POC 32.0(L) 38.9 - 50.3 % [facility] Total Hb, POC 10.6(L) 13.0 - 17.5 g/dL [facility] Blood 01/07/2025 12:3 5 PM CDT 01/07/2025 12:35 PM CDT Esteban Fairchild MD LAB POCT ORDERABLES - DEVICE Final Result [place] [address] [address] [facility] [place] [address] * (ABNORMAL) POC Activated Clotting Time, High Range (01/07/2025 12:33 PM CDT) Pathologist [facility] ACT 629(H) 87 - 138 sec Blood 01/07/2025 12:3 3 PM CDT 01/07/2025 12:33 PM CDT Esteban Fairchild MD LAB BLOOD ORDERABLES Final R esult Performing Organization Address [facility] Co de Phone Number [place] [address] [address] [place] [place] [address] * (ABNORMAL) POC Blood Gas and Chemistries, Arterial - (01/07/2025 12:09 PM CDT) Pathologist [facility] pH, Art POC 7.38 7.35 - 7.45 pCO2, Art POC 38 35 - 45 mmHg [facility] pO2, Art POC 172(H) 83 - 108 mmHg [facility] Na, POC 133(L) 135 - 145 mmol/L [facility] K POC 4.7 3.3 - 4.9 mmol/L [facility] Comment: Interpretive Data This method is not able to assess for hemolysis, which may falsely increase potassium concentrations. If further testing is needed to evaluate this result, consider in-laboratory plasma potassium. Current Interpretive Data was last revised on 2021. Ionized Ca, POC 4.28(L) 4.50 - 5.10 mg/dL [facility] Glucose, POC 212(H) 70 - 199 mg/dL [facility] Lactate POC 1.1 0.7 - 2.0 mmol/L [facility] O2Hb, Art POC 98.0(H) 90.0 - 95.0 % [facility] SO2 (miguel) arterial 100(H) 90 - 95 % [facility] Total CO2, Art POC 24 21 - 30 mmol/L [facility] BE, art, POC -2 mmol/L [facility] Hct, POC 32.0(L) 38.9 - 50.3 % [facility] Total Hb, POC 10.7(L) 13.0 - 17.5 g/dL [facility] Blood 01/07/2025 12:0 9 PM CDT 01/07/2025 12:09 PM CDT Esteban Fairchild MD LAB POCT ORDERABLES - DEVICE Final Result Performing Organization Address [facility]/ZIP Co de Phone Number LEX [place] [address] [place] [address] * (ABNORMAL) POC Activated Clotting Time, High Range (01/07/2025 12:07 PM CDT) ACT 542(H) 87 - 138 sec Blood 01/07/2025 12:0 7 PM CDT 01/07/2025 12:07 PM CDT Esteban Fairchild MD LAB BLOOD ORDERABLES Final R esult Performing Organization Address [facility] Co de Phone Number LEX [place]IM[place]O [address] [place], [place] [id number] * (ABNORMAL) POC Blood Gas and Chemistries, Arterial - (01/07/2025 11:38 AM CDT) pH, Art POC 7.42 7.35 - 7.45 pCO2, Art POC 37 35 - 45 mmHg [facility] pO2, Art POC 214(H) 83 - 108 mmHg [facility] Na, POC 132(L) 135 - 145 mmol/L [facility] K POC 4.4 3.3 - 4.9 mmol/L [facility] Comment: Interpretive Data This method is not able to assess for hemolysis, which may falsely increase potassium concentrations. If further testing is needed to evaluate this result, consider in-laboratory plasma potassium. Current Interpretive Data was last revised on 2021. Ionized Ca, POC 4.32(L) 4.50 - 5.10 mg/dL [facility] Glucose, POC 163 70 - 199 mg/dL [facility] Lactate POC 0.9 0.7 - 2.0 mmol/L [facility] O2Hb, Art POC 98.1(H) 90.0 - 95.0 % [facility] SO2 (miguel) arterial 100(H) 90 - 95 % [facility] Total CO2, Art POC 25 21 - 30 mmol/L [facility] BE, art, POC 0 mmol/L [facility] Hct, POC 34.0(L) 38.9 - 50.3 % [facility] Total Hb, POC 11.4(L) 13.0 - 17.5 g/dL [facility] Blood 01/07/2025 11:3 8 AM CDT 01/07/2025 11:38 AM CDT Esteban Fairchild MD LAB POCT ORDERABLES - DEVICE Final Result Performing Organization Address City/[facility]/ZIP Co de Phone Number LEX NAS[place]IM[place] [address] [place] [address] * (ABNORMAL) POC Activated Clotting Time, High Range (01/07/2025 11:36 AM CDT) ACT 617(H) 87 - 138 sec Blood 01/07/2025 11:3 6 AM CDT 01/07/2025 11:36 AM CDT Esteban Fairchild MD LAB BLOOD ORDERABLES Final R esult LEX [place] [address] [place] [address] * PULMONARY ARTERY CATH, DC AN CENTRAL LINE MULTI LUMEN (01/07/2025 11:04 AM CDT) Narrative Vincenzo Carpenter AA - 01/07/2025 11:04 AM CDT Vincenzo Carpenter AA 01/07/2025 11:04 AM Central Venous Line Patient location: OR Indication: central venous access and CVP monitoring Staff: Supervising provider: Porfirio Feliz MD Placed by: AA: Vincenzo Carpenter AA Procedure prep: Patient position: Trendelenburg. PPE: provider hat/mask, sterile gloves, sterile gown, provider hand hygiene and full body drape. Prep solution: chlorhexadine/alcohol was applied to area. Ultrasound Evaluation: Ultrasound was prepped into field. Ultrasound image(s) saved to archive. Central line: Laterality: right Site: internal jugular Catheter type: multi-lumen access catheter (MAC) Catheter size: 9 Fr. Technique: anatomy identified with ultrasound, vein located with finder needle, Seldinger technique, wire threaded easily and wire removed intact Venous verification: pressure transduced Post insertion: all ports aspirated, all ports flushed easily, line sutured in place and occlusive dressing applied Chlorhexidine patch applied: yes Number of attempts: 1 PA catheter placement: PA catheter type: oximetric PA catheter size: 8 Fr PA catheter laterality: right PA catheter site: internal jugular Placement guided by: pressure tracing changes PA catheter depth 48 cmNo Assessment: Events: patient tolerated procedure well with no complications us Porfirio Feliz MD ANESTHESIA ORDERABLES Final Resu lt * Arterial Line (01/07/2025 11:03 AM CDT) Narrative Vincenzo Carpenter AA - 01/07/2025 11:03 AM CDT Vincenzo Carpenter AA 01/07/2025 11:04 AM Arterial Line Patient location: pre-op holding Indication: continuous blood pressure monitoring and blood sampling needed Staff: Supervising provider: Porfirio Feliz MD Placed by: AA: Vincenzo Carpenter AA Procedure prep: Prep solution: chlorhexadine/alcohol Prep: provider hat/mask and sterile gloves Skin infiltrated with lidocaine 1%: yes Arterial line: Catheter size: 20 gauge Catheter length: 1 and 3/4 inch Catheter type: wire-guided catheter Seldinger technique: yes Laterality: left Site: radial artery Line secured: Tegaderm and tape Results: good waveform and good blood return Number of attempts: 1 Assessment: Events: patient tolerated procedure well with no complications us Porfirio Feliz MD ANESTHESIA ORDERABLES Final Resu lt * DC AN ELECTIVE ENDOTRACHEAL AIRWAY (01/07/2025 11:01 AM CDT) Narrative Vincenzo Carpenter AA - 01/07/2025 11:01 AM CDT Vincenzo Carpenter AA 01/07/2025 11:02 AM Airway Patient location: OR Urgency: elective Date/time: 01/07/2025 8:34 AM Indications for airway management: anesthesia Difficult airway: no Staff: Supervising provider: Porfirio Feliz MD Placed by: AA: Vincenzo Carpenter AA Emergent airway documentation: Risks and benefits discussed: yes Consent obtained: yes Consent given by: patient Airway prep: Preoxygenated: yes Patient position: sniffing Mask difficulty assessment: 2 - vent by mask + OA or adjuvant Spontaneous ventilation during airway: absent Sedation level during airway: GA Final airway details: Final airway type: endotracheal airway Tube type: ETT ETT size: 8.0 mm Cuffed: yes Technique used for successful ETT placement: video laryngoscopy Devices/Methods used in placement: cricoid pressure and stylet Insertion site: oral Blade type: Hubert Video blade type: Wahl Blade size: 4 Cormack-Lehane (video): grade IIa - partial view of glottis Cuff volume: 7 mL Cuff inflated with: air ETT to lips: 24 cm Placement verified by: auscultation and CO2 detection Airway secured with: silk tape Number of attempts: 1 Additional comments: Elbert mccabe student performed intubation under direct supervision. us Porfirio Feliz MD ANESTHESIA ORDERABLES Final Resu lt * (ABNORMAL) POC Blood Gas and Chemistries, Arterial - (01/07/2025 11:00 AM CDT) pH, Art POC 7.39 7.35 - 7.45 pCO2, Art POC 41 35 - 45 mmHg [facility] pO2, Art POC 211(H) 83 - 108 mmHg [facility] Na, POC 134(L) 135 - 145 mmol/L [facility] K POC 3.7 3.3 - 4.9 mmol/L [facility] Comment: Interpretive Data This method is not able to assess for hemolysis, which may falsely increase potassium concentrations. If further testing is needed to evaluate this result, consider in-laboratory plasma potassium. Current Interpretive Data was last revised on 2021. Ionized Ca, POC 4.32(L) 4.50 - 5.10 mg/dL [facility] Glucose, POC 124 70 - 199 mg/dL [facility] Lactate POC 0.7 0.7 - 2.0 mmol/L [facility] O2Hb, Art POC 98.1(H) 90.0 - 95.0 % [facility] SO2 (miguel) arterial 100(H) 90 - 95 % [facility] Total CO2, Art POC 26 21 - 30 mmol/L [facility] BE, art, POC 0 mmol/L [facility] Hct, POC 32.0(L) 38.9 - 50.3 % [facility] Total Hb, POC 10.6(L) 13.0 - 17.5 g/dL [facility] Blood 01/07/2025 11:0 0 AM CDT 01/07/2025 11:00 AM CDT Esteban Fairchild MD LAB POCT ORDERABLES - DEVICE Final Result Performing Organization Address City/[facility]/ZIP Co de Phone Number LEX PILY [address] [place] [address] * (ABNORMAL) POC Activated Clotting Time, High Range (01/07/2025 10:58 AM CDT) ACT 565(H) 87 - 138 sec Blood 01/07/2025 10:5 8 AM CDT 01/07/2025 10:58 AM CDT Esteban Fairchild MD LAB BLOOD ORDERABLES Final R esult SÁNCHEZTIA [place]CIM[place] [address] [place] [address] * (ABNORMAL) POC Blood Gas and Chemistries, Arterial - (01/07/2025 10:16 AM CDT) pH, Art POC 7.39 7.35 - 7.45 pCO2, Art POC 47(H) 35 - 45 mmHg [facility] pO2, Art POC 498(H) 83 - 108 mmHg [facility] Na, POC 132(L) 135 - 145 mmol/L [facility] K POC 3.9 3.3 - 4.9 mmol/L [facility] Comment: Interpretive Data This method is not able to assess for hemolysis, which may falsely increase potassium concentrations. If further testing is needed to evaluate this result, consider in-laboratory plasma potassium. Current Interpretive Data was last revised on 2021. Ionized Ca, POC 4.53 4.50 - 5.10 mg/dL [facility] Glucose, POC 134 70 - 199 mg/dL [facility] Lactate POC 0.6(L) 0.7 - 2.0 mmol/L [facility] O2Hb, Art POC 97.4(H) 90.0 - 95.0 % [facility] SO2 (miguel) arterial 100(H) 90 - 95 % [facility] Total CO2, Art POC 30 21 - 30 mmol/L [facility] BE, art, POC 3 mmol/L [facility] Hct, POC 41.0 38.9 - 50.3 % [facility] Total Hb, POC 13.7 13.0 - 17.5 g/dL [facility] Blood 01/07/2025 10:1 6 AM CDT 01/07/2025 10:16 AM CDT Esteban Fairchild MD LAB POCT ORDERABLES - DEVICE Final Result Performing Organization Address [facility]/ZIP Co de Phone Number LEX NASCIM[place] [address] [place] [address] * (ABNORMAL) POC Activated Clotting Time, High Range (01/07/2025 10:09 AM CDT) ACT 542(H) 87 - 138 sec Blood 01/07/2025 10:0 9 AM CDT 01/07/2025 10:09 AM CDT Esteban Fairchild MD LAB BLOOD ORDERABLES Final R esult Performing Organization Address City/[facility]/ZIP Co de Phone Number LEX [place] [address] [place] [address] * INDU (01/07/2025 9:30 AM CDT) Anatomical Region Laterality Modality Other Narrative 01/07/2025 9:30 AM CDT Porfirio Feliz MD 01/07/2025 3:30 PM INDU Date/time: 01/07/2025 9:30 AM Staff: Supervising anesthesiologist: Porfirio Feliz MD Performed by: Anesthesiologist: Porfirio Feliz MD Preprocedure checklist: patient identified, procedure contraindications assessed and INDU probe inserted into esophagus using lubricating jelly General procedure Information: Reason for procedure/indications: assessment of surgical repair and hemodynamic monitoring Procedure performed at surgeon's request: yes Results discussed with surgeon: yes Images submitted to archive: no Patient location: OR Intubated: yes Bite blocked placed: yes Probe Insertion: easy Complications: no Probe type: adult Modalities: 2D imaging, continuous wave Doppler, pulsed wave Doppler and color Doppler Echocardiographic and doppler measurements: Ventricles: Left ventricle: Cavity size: normal Hypertrophy: Yes Thrombus: No Global function: normal LVEF%: 50-60 Right ventricle: Cavity size: normal Hypertrophy: no Thrombus: No Global function: normal RVEF%: normal Interventricular septum: normal Regional function: 1- Basal anteroseptal: normal 2- Basal anterior: normal 3- Basal anterolateral: normal 4- Basal inferolateral: normal 5- Basal inferior: normal 6- Basal inferoseptal: normal 7- Mid anteroseptal: normal 8- Mid anterior: normal 9- Mid anterolateral: normal 10- Mid inferolateral: normal 11- Mid inferior: normal 12- Mid inferoseptal: normal 13- Apical anterior: normal 14- Apical lateral: normal 15- Apical inferior: normal 16- Apical septal: normal 17- [place]: normal Valves: Aortic Valve: Annulus: normal (2.5 cm) Leaflet morphology: calcified and thickened Leaflet motion: restricted Stenosis: mild and moderate Regurgitation: severe Mitral valve: Annulus: normal Leaflet morphology anterior: normal Leaflet morphology posterior: normal Leaflet motion anterior: normal Leaflet motion posterior: normal Stenosis: none Regurgitation: none Tricuspid valve: Annulus: normal Leaflet morphology: normal Leaflet motion: normal Stenosis: none Regurgitation: none Aorta: Ascending aorta: Size: normal Dissection: no Plaque mobile: no Descending aorta: Size: normal Dissection: no Plaque thickness(mm): 0-3 Plaque mobile: no Atria: Right atrium: Size: normal Left atrium: Size: normal (normal) Left atrial appendage: normal Interatrial septum: normal Diastolic function and other findings: Diastolic function: normal Pericardium: normal Left pleural effusion: none Right pleural effusion: normal Pulmonary venous flow: normal Postprocedure (follow-up) INDU exam: LV: unchanged RV: unchanged Interventricular septum: unchanged Aortic valve: bioprosthetic Aortic valve gradient peak: 7 mmHg Aortic valve gradient mean: 4 mmHg Mitral valve: unchanged Pulmonic valve: unchanged Tricuspid valve: unchanged Atria: unchanged Aorta: unchanged Pericardium: unchanged Left pleural: unchanged Right pleural: unchanged Attestation Statement: By signing this report the attending anesthesiologist certifies that he or she has personally reviewed and interpreted the echocardiogram and has reviewed and or edited and agrees with the written comments contained within the report. us Porfirio Feliz MD ANESTHESIA ORDERABLES Edited Res ult - Final * (ABNORMAL) POC Blood Gas and Chemistries, Arterial - (01/07/2025 9:00 AM CDT) pH, Art POC 7.42 7.35 - 7.45 pCO2, Art POC 49(H) 35 - 45 mmHg [facility] pO2, Art POC 444(H) 83 - 108 mmHg [facility] Na, POC 132(L) 135 - 145 mmol/L [facility] K POC 3.6 3.3 - 4.9 mmol/L [facility] Comment: Interpretive Data This method is not able to assess for hemolysis, which may falsely increase potassium concentrations. If further testing is needed to evaluate this result, consider in-laboratory plasma potassium. Current Interpretive Data was last revised on 2021. Ionized Ca, POC 4.80 4.50 - 5.10 mg/dL [facility] Glucose, POC 137 70 - 199 mg/dL [facility] Lactate POC 0.6(L) 0.7 - 2.0 mmol/L [facility] O2Hb, Art POC 97.8(H) 90.0 - 95.0 % [facility] SO2 (miguel) arterial 100(H) 90 - 95 % [facility] Total CO2, Art POC 33(H) 21 - 30 mmol/L [facility] BE, art, POC 6 mmol/L [facility] Hct, POC 43.0 38.9 - 50.3 % [facility] Total Hb, POC 14.2 13.0 - 17.5 g/dL [facility] Blood 01/07/2025 9:00 AM CDT 01/07/2025 9:00 AM CDT Esteban Fairchild MD LAB POCT ORDERABLES - DEVICE Final Result Performing Organization Address [facility] Co de Phone Number LEX [place] [address] [place] [address] * POC Activated Clotting Time, High Range (01/07/2025 8:55 AM CDT) ACT 107 87 - 138 sec Blood 01/07/2025 8:55 AM CDT 01/07/2025 8:55 AM CDT Esteban Fairchild MD LAB BLOOD ORDERABLES Final R esult Performing Organization Address [facility] de Phone Number LEX [place] [address] [place] [place] [address] * INDU Add-On For OR (01/07/2025 7:24 AM CDT) BSA 2.3 m2 CONS SCIMAGE Narrative CONS SCIMAGE - 01/07/2025 7:24 AM CDT Procedure Auto Finalized by Rule: BW CV INDU DURING CASE OR Please see the Anesthesiologist's Procedure Note for the results. Porfirio Feliz MD CV ECHO PROCEDURES Final Result Performing Organization Address [facility] de Phone Number CONS SCIMAGE * Check Sample (01/07/2025 7:10 AM CDT) ABO Rh A Positive CH HCLL OTHER 01/07/2025 7:10 AM CDT 01/07/2025 7:39 AM CDT Esteban Fairchild MD LAB BLOOD ORDERABLES Final R esult Performing Organization Address [facility] Co de Phone Number LEX [place] [address] [place] [address] CH * Potassium, whole blood (01/07/2025 6:52 AM CDT) Pathologist [facility] Potassium, bld 3.8 3.3 - 4.9 mmol/L Comment: Interpretive Data This method is not able to assess for hemolysis, which may falsely increase potassium concentrations. If further testing is needed to evaluate this result, consider in-laboratory plasma potassium. Current Interpretive Data was last revised on 2021. Blood 01/07/2025 6:52 AM CDT 01/07/2025 7:16 AM CDT Ashley Kendall NP LAB BLOOD ORDERABLES Final Result Performing Organization Address [facility] Co de Phone Number LEX [place] [address] [place] [address] * Prepare platelets: 2 Units (01/07/2025 6:52 AM CDT) Pathologist [facility] Product code [id number] Unit Number [id number] [facility] Product Blood Type APOS [facility] Dispense Status PRESUMED TRANSFUSED [facility] Blood Venous blood specimen / Unknown 01/07/2025 6:52 AM CDT Narrative [facility] - 01/07/2025 10:15 PM CDT Specify Procedure:->AVR, CABG Are special requirements needed? (all products are leukoreduced)->No Date required:-[id number] PLT # of Units:-2-Units Reasons:-Hold for procedure (specify procedure)} Elma Patel TECHNICAL SUPPORT REPRESENTATIVE BLOOD BANK PRODUCT ORDERAB LES Final Result Performing Organization Address [facility] Co de Phone Number LEX [place] [address] [place] [place] [address] * Prepare plasma: 2 Units Standard plasma (01/07/2025 6:52 AM CDT) Product code [id number] Unit Number [id number] [facility] Product Blood Type APOS [facility] Dispense Status PRESUMED TRANSFUSED [facility] Blood Venous blood specimen / Unknown 01/07/2025 6:52 AM CDT Narrative [facility] - 01/07/2025 10:15 PM CDT Specify Procedure:->AVR, CABG Is this plasma order intended for a COVID-19 patient as convalescent plasma?->Standard plasma Special Requirements Needed?->No Date required:-[id number] FFP # of Units:-2-Units Reasons:-Hold for procedure (specify procedure)} Elma Patel TECHNICAL SUPPORT REPRESENTATIVE BLOOD BANK PRODUCT ORDERAB LES Final Result [facility] [address] [place] [address] * Prepare RBC: 4 Units (01/07/2025 6:52 AM CDT) Product code [id number] [facility] Unit Number [id number] 9-4 [facility] Product Blood Type APOS [facility] Dispense Status RETURNED [facility] Product code [id number] Unit Number [id number] 8-[id number] [facility] Product Blood Type APOS [facility] Dispense Status RETURNED [facility] Product code [id number] [facility] Unit Number [id number] 1-J [facility] Product Blood Type APOS [facility] Dispense Status RETURNED [facility] Product code [id number] [facility] Unit Number [id number] 8-F [facility] Product Blood Type APOS [facility] Dispense Status RETURNED [facility] Blood 01/07/2025 6:52 AM CDT Narrative [facility] - 01/08/2025 2:39 AM CDT Specify Procedure:->AVR, CABG Are special requirements needed? (All products are leukoreduced and CMV- safe)- >No Date required:-[id number] [facility] # of Kaajs-4-Xurmh Reasons:-Hold for procedure (specify procedure)} us Elma Patel NP BLOOD BANK PRODUCT ORDERAB LES Final Result Performing Organization Address City/[facility]/ZIP Co de Phone Number LEX NASCIM[place]O [address] [place] [address] * POCT glucose (01/07/2025 6:33 AM CDT) Glucose, POC 117 70 - 199 mg/dL Blood 01/07/2025 6:33 AM CDT 01/07/2025 6:33 AM CDT us Esteban Fairchild MD LAB POCT ORDERABLES - DEVICE Final Result Performing Organization Address [facility] Co de Phone Number LEX [place] [address] [place] [address] * eGFR (12/27/2024 11:48 AM CDT) eGFR 73 >=60 mL/min/1. 73 m2 Comment: Interpretive Data [...] interpretive data was last reviewed 2021. Blood 12/27/2024 11:4 8 AM CDT 12/27/2024 11:48 AM CDT Esteban Fairchild MD LAB BLOOD ORDERABLES Final R esult Performing Organization Address [facility] Co de Phone Number LEX NASCIMENTO [address] [facility] [place] [address] * aPTT (12/27/2024 11:48 AM CDT) aPTT 29 26 - 38 sec Comment: Interpretive Data Heparin therapeutic range: 66.0 - 100.0 seconds. Range based on correlation with therapeutic heparin activity range of 0.3 - 0.7 Units/mL. Current interpretive data was last revised on 2022. Blood 12/27/2024 11:4 8 AM CDT 12/27/2024 11:48 AM CDT Esteban Fairchild MD LAB BLOOD ORDERABLES Final R esult Performing Organization Address [facility] Co de Phone Number LEX NASCIMENTO [address] [facility] [place] [address] * Protime-INR (12/27/2024 11:48 AM CDT) PT 10.6 10.2 - 13.5 sec INR 0.94 0.90 - 1.20 [facility] Comment: Interpretive data Oral anticoagulant therapeutic ranges: Venous thromboembolism prophylaxis or treatment: 2.0-3.0 CARDIOLOGY Standard range: 2.0-3.0 High-intensity range: 2.5-3.5 Refer to indication-specific guidelines for appropriate target ranges for prosthetic heart valve replacement. Current interpretive data was last revised on 2019. Blood 12/27/2024 11:4 8 AM CDT 12/27/2024 11:48 AM CDT Esteban Fairchild MD LAB BLOOD ORDERABLES Final R esult Performing Organization Address [facility] Co de Phone Number LEX [address] [facility] [place] [address] * (ABNORMAL) CBC without differential (12/27/2024 11:48 AM CDT) Pathologist [facility] WBC 11.19(H) 3.80 - 9.90 K/cumm Hgb 14.5 13.0 - 17.5 g/dL [facility] Hct 44.1 38.9 - 50.3 % [facility] Plt 213 150 - 400 K/cumm [facility] MPV 9.9 9.1 - 12.3 fL [facility] RBC 5.18 4.30 - 5.80 M/cumm [facility] MCV 85.1 81.3 - 96.4 fL [facility] MCH 28.0 27.1 - 33.3 pg [facility] MCHC 32.9 32.3 - 35.7 g/dL [facility] RDW CV 14.4 11.1 - 14.9 % [facility] RDW SD 44.3 35.7 - 48.1 fL [facility] NRBC abs 0.00 0.00 - 0.01 K/cumm [facility] Blood 12/27/2024 11:4 8 AM CDT 12/27/2024 11:48 AM CDT us Esteban Fairchild MD LAB BLOOD ORDERABLES Final R esult [facility] [address] [place] [address] * (ABNORMAL) Basic metabolic panel (12/27/2024 11:48 AM CDT) Pathologist [facility] Sodium 137 135 - 145 mmol/L Potassium, pl 4.1 3.3 - 4.9 mmol/L [facility] Chloride 99 97 - 110 mmol/L [facility] CO2 22 22 - 32 mmol/L [facility] Anion gap 16(H) 2 - 15 mmol/L [facility] BUN 36(H) 6 - 25 mg/dL [facility] Creatinine 1.14 0.80 - 1.30 mg/dL [facility] Glucose 133 70 - 199 mg/dL [facility] Comment: Interpretive Data Fasting glucose >/= 126 mg/dl is diagnostic for diabetes. Fasting is defined as no caloric intake for at least 8 hours. Fasting glucose between 100 mg/dl to 125 mg/dl is diagnostic of prediabetes. In a patient with classic symptoms of hyperglycemia or hyperglycemic crisis, a random glucose >/= 200 mg/dl is diagnostic for diabetes. In the absence of unequivocal hyperglycemia, results should be confirmed by repeat testing. The classification and Diagnosis of Diabetes Diabetes Care 2021; 46: S19-S40. Current interpretive data was last revised 2022. Calcium 9.3 8.5 - 10.3 mg/dL [facility] Blood 12/27/2024 11:4 8 AM CDT 12/27/2024 11:48 AM CDT us Esteban Fairchild MD LAB BLOOD ORDERABLES Final R esult [facility] [address] [place] [address] * (ABNORMAL) Urinalysis reflex to microscopic and culture Urine, clean voided (12/27/2024 11:15 AM CDT) Color, ur Straw Yellow Clarity, ur Clear Clear [facility] Specific gravity, ur 1.006 1.003 - 1.030 [facility] pH, urine 6.0 [facility] Comment: Interpretive Data U rine pH is affected by diet, medications, systemic acid-base disturbances, and renal tubular function. pH may affect urinary stone formation. For example, urine pH below 6.0 may help reduce the tendency for calcium phosphate stones and pH greater than 6.0 may reduce the tendency for uric acid stone formation. Source: [facility] [employer] Current Interpretive Data was last revised on [...] be performed. [facility]ERNER [facility] Urine, clean voided 12/27/2024 11:15 AM CDT 12/27/2024 11:49 AM CDT Esteban Fairchild MD LAB MICROBIOLOGY - GENERAL O RDERABLES Final Result Performing Organization Address [facility] Co de Phone Number LEX [address] [place] [employer] [place] [address] * Urinalysis, microscopic only (12/27/2024 11:15 AM CDT) WBC, ur 0-5 0 - 5 /HPF RBC, ur 0-2 0 - 2 /HPF [facility] Culture Reflex Comment Reflex conditions for urine culture (WBC >10) not met. [facility] Urine, clean voided 12/27/2024 11:15 AM CDT 12/27/2024 11:49 AM CDT Esteban Fairchild MD LAB URINE ORDERABLES Final R esult Performing Organization Address [facility] Co de Phone Number LEX [address] [place] [place] [address] * Type and screen (12/27/2024 11:15 AM CDT) Vahid, indirect Negative ABO Rh A Positive [facility] Blood 12/27/2024 11:1 5 AM CDT 12/27/2024 12:06 PM CDT Narrative [facility] - 12/27/2024 12:49 PM CDT Has the patient had Daratumumab or Isatuximab in the past 6 months?->Unknown Esteban Fairchild MD LAB BLOOD BANK TEST ORDERABL ES Final Result Performing Organization Address [facility]/ZIP Co de Phone Number LEX [place] [address] [address] [place] [address] * ECG 12 lead (12/27/2024 10:30 AM CDT) 12/27/2024 10:3 0 AM CDT Narrative [facility] - 12/27/2024 9:25 PM CDT Vent Rate: 70 bpm RR Interval: 848 msec DC Interval: 232 msec QRS Duration: 106 msec QT Interval: 385 msec QTC Interval: 406 msec P-R-T [place]: 13 - -15 - 78 degrees IMPRESSION: SINUS RHYTHM WITH FIRST DEGREE AV BLOCK LEFT ATRIAL ENLARGEMENT INCOMPLETE RIGHT BUNDLE BRANCH BLOCK LEFT VENTRICULAR HYPERTROPHY AND ST-T CHANGE INFERIOR MYOCARDIAL INFARCTION , OF INDETERMINATE AGE Electronically Signed By: Raymond Hong MD, [facility] [place] Esteban Fairchild MD ECG ORDERABLES Final Result [facility] * XR Chest PA Lateral 2 View (12/27/2024 10:15 AM CDT) Anatomical Region Laterality Modality Body, Chest N/A Computed Radiogr aphy 12/27/2024 10:5 6 AM CDT Impressions 12/27/2024 10:56 AM CDT No active disease. Electronically signed by: Summer Nayak M.D. Narrative 12/27/2024 10:56 AM CDT EXAMINATION: XR CHEST PA LATERAL 2 VIEWS HISTORY: The patient is a 59-year-old male who presents with aortic valve stenosis. TECHNIQUE: PA and lateral view of the chest. FINDINGS: Lungs clear. Cardiovascular structures unremarkable. Procedure Note Summer Nayak MD - 12/27/2024 EXAMINATION: XR CHEST PA LATERAL 2 VIEWS HISTORY: The patient is a 59-year-old male who presents with aortic valve stenosis. TECHNIQUE: PA and lateral view of the chest. FINDINGS: Lungs clear. Cardiovascular structures unremarkable. IMPRESSION: No active disease. Electronically signed by: Summer Nayak M.D. us Esteban Fairchild MD IMG XR PROCEDURES Final Resu lt * US Vein Mapping Lower Extremity Bilateral (12/27/2024 9:05 AM CDT) Anatomical Region Laterality Modality Vascular Bilateral Ultrasound 12/27/2024 2:14 PM CDT Impressions 12/27/2024 2:14 PM CDT Diameter measurements of the right and the left greater saphenous veins as discussed] above. Electronically signed by: Summer Nayak M.D. Narrative 12/27/2024 2:14 PM CDT EXAMINATION: US VEIN MAPPING DUPLEX LOWER EXTREMITY BILATERAL HISTORY: The patient is a 59-year-old male who was referred for saphenous vein mapping for bypass surgery planning. TECHNIQUE: Bilateral saphenous vein mapping was performed with peña scale imaging. FINDINGS: Right side: The diameter of the right greater saphenous vein at the saphenofemoral junction is 8.1 mm, in the proximal thigh is 3.9 mm, mid thigh is 3.1 mm and distal thigh is 2.3 mm. The diameter of the right greater saphenous vein at the level of the knee is 2.3 mm, in the proximal calf is 2.0 mm and distal calf is 1.2 mm. Left side: The diameter of the left greater saphenous vein at the saphenofemoral junction is 8.6 mm, in the proximal thigh is 3.6 mm, the mid thigh is 2.3 mm and distal thigh is 2.5 mm. The diameter of the left greater saphenous vein at the level of the knee is 2.2 mm, in the proximal calf is 1.3 mm and distal calf is 1.0 mm. Procedure Note Summer Nayak MD - 12/27/2024 EXAMINATION: US VEIN MAPPING DUPLEX LOWER EXTREMITY BILATERAL HISTORY: The patient is a 59-year-old male who was referred for saphenous vein mapping for bypass surgery planning. TECHNIQUE: Bilateral saphenous vein mapping was performed with peña scale imaging. FINDINGS: Right side: The diameter of the right greater saphenous vein at the saphenofemoral junction is 8.1 mm, in the proximal thigh is 3.9 mm, mid thigh is 3.1 mm and distal thigh is 2.3 mm. The diameter of the right greater saphenous vein at the level of the knee is 2.3 mm, in the proximal calf is 2.0 mm and distal calf is 1.2 mm. Left side: The diameter of the left greater saphenous vein at the saphenofemoral junction is 8.6 mm, in the proximal thigh is 3.6 mm, the mid thigh is 2.3 mm and distal thigh is 2.5 mm. The diameter of the left greater saphenous vein at the level of the knee is 2.2 mm, in the proximal calf is 1.3 mm and distal calf is 1.0 mm. IMPRESSION: Diameter measurements of the right and the left greater saphenous veins as discussed] above. Electronically signed by: Summer Nayak M.D. Esteban Fairchild MD IMG US PROCEDURES Final Resu lt * (ABNORMAL) POCT hemoglobin A1c (09/12/2024 9:14 AM CDT) Hemoglobin A1C, POC 6.0(A) 4.0 - 5.6 % Blood 09/12/2024 9:14 AM CDT Kaitlynn Vivas NP POINT OF CARE TEST ORDERA BLES Final Result * DIABETES EYE EXAM (04/16/2024 9:12 AM REPRESENTATIVE GOVERNMENT RELATIONS) Historical Provider HEALTH MAINTENANCE Final Result * (ABNORMAL) Albumin Creatinine Ratio, Urine (01/10/2024 [...] URINE ORDERABLES Final Resul t [place] [address] [place] [address] * (ABNORMAL) Lipid panel (01/10/2024 [...] 3. Dontrell M et al. CORDELL Cardiol. 2019August 02;5(5):540-548. doi: [...] BLOOD ORDERABLES Final Resul t [place] [address] Department [place] [address] from Last 3 Months or Most Recently Relevant to Health Maintenance Insurance [employer] [facility] Advance Directives For more information, please contact: [phone] * Full Code (Latest Code Status on File) Date Activated Date Inactivated Comments 01/07/2025 4:06 PM 01/14/2025 8:41 PM Care Teams Senior Information Systems Architect Relationship Specialty Start Date End Date Cain Mendoza MD [address] [address] PCP - General 02/03/11 [place] [address] [address] [place] [address] Surgeon Cardiothoracic Surgery 01/14/25 Miscellaneous, Not In File 01/14/25
--- OUTSIDE RECORDS SUMMARY | 2025-02-13 15:26 | XMS_ITS | Encounter Summary ---
Author Organization [facility] Address 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 Gender Identity Not on file Sexual Orientation Not on file documented as of this encounter Plan of Treatment Upcoming Encounters Date Type Department Care Team (Late st Contact Info) Description 08/30/2025 8:30 AM CDT Office Visit [facility] Oncology and Hematology - [place] [address] [facility] [address] [place] [address] Lewis Stanley MD [address] [facility] [address] [place] [address] documented as of this encounter Visit Diagnoses Not on filedocumented in this encounter Care Teams Drier Tender Relationship Specialty Start Date End Date Cain Mendoza MD [facility] [place] [phone] PCP - General Family Practice 12/17/22 documented as of this encounter
--- OUTSIDE RECORDS SUMMARY | 2025-02-13 15:26 | XMS_ITS | Encounter Summary ---
Author Organization [facility] Address [address] [place] [address] Care Team Providers Care Lath Tier Name Role Phone Cain Mendoza MD Primary Care Provider [phone] Reason for Visit * Reason Comments Medication Refill Encounter Details Date Type Department Care Team (Late Contact Info) Description 12/01/2012 Refill [facility] [place] [address] [address] [facility] [address] [place] [address] Madeline Talley MD [address] [place] [address] Social History Tobacco Use Types Packs/Day Years Used Date Smoking Tobacco: Never Assessed Sex and Gender Information Value Date Recorded Sex Assigned at Not on file 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 Gender Identity Not on file Sexual Orientation Not on file documented as of this encounter Miscellaneous Notes * Telephone Encounter - Rachell Russell - 12/02/2012 8:41 AM CDT Not our pt documented in this encounter Plan of Treatment Upcoming Encounters Date Type Department Care Team (Late st Contact Info) Description 08/30/2025 8:30 AM CDT Office Visit [facility] Oncology and Hematology - [place] [address] [facility] [address] [place] [address] Lewis Stanley MD [address] [facility] [address] [place] [address] documented as of this encounter Visit Diagnoses Not on filedocumented in this encounter Care Teams Lath Tier Relationship Specialty Start Date End Date Cain Mendoza MD [address] [place] [address] PCP - General Family Practice 12/17/22 documented as of this encounter
--- OUTSIDE RECORDS SUMMARY | 2025-02-13 15:26 | XMS_ITS | Clinical Summary ---
Author Organization [facility] Address [address] [place] [address] Phone Care Team Providers Care Immunopathologist Name Role Phone Jabier Acosta Primary Care Provider [phone] Allergies Active Allergy Reactions Criticality Noted Date [...] file Insurance MEDICARE C [employer] Care Teams Immunopathologist Relationship Specialty Start Date End Date Jabier Acosta DO [address] [facility] [address] [place] [address] PCP - General Internal Medicine 10/05/21
--- OUTSIDE RECORDS SUMMARY | 2025-02-13 15:26 | XMS_ITS | Encounter Summary ---
Author Organization [facility] Care Team Providers Care Field Map Editor Name Role Phone Cain Mendoza MD Primary Care Provider [phone] Esteban Fairchild MD Unavailable [phone] Miscellaneous, Not In File Unavailable Unava ilable Encounter Details Date Type Department Care Team (Latest Contact Info) Description 10/06/2017 Orders Only [facility] ProviderOscar MD [address] [place] [address] Social History Tobacco Use Types Packs/Day Years Used Date Smoking Tobacco: Never Assessed Alcohol Use Standard Drinks/Week Comments No 0 (1 standard drink = 0.6 oz pur e alcohol) Sex and Gender Information Value Date Recorded Sex Assigned at Not on file 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
--- NOTE | 2025-02-13 20:07 | PC.NURSE ---
Anoop home contacted
== END 2025-02-13 18:45 | disposition expired ==
PROVIDERS: Emergency Provider Emergency Medicine; PCP Family Medicine
DX: I46.9 Cardiac arrest, cause unspecified (principal); J94.2 Hemothorax; E11.9 Type 2 diabetes mellitus without complications; Z79.85 Long-term (current) use of injectable non-insulin antidiabetic drugs; Z79.4 Long term (current) use of insulin; Z79.84 Long term (current) use of oral hypoglycemic drugs; Z79.82 Long term (current) use of aspirin; K21.9 Gastro-esophageal reflux disease without esophagitis; E53.8 Deficiency of other specified B group vitamins; E78.2 Mixed hyperlipidemia; G47.33 Obstructive sleep apnea (adult) (pediatric); J44.9 Chronic obstructive pulmonary disease, unspecified
CPT/HCPCS: 92950; 99285; C1729; J0168; J0282; J7030